=== PATIENT | male | born 1945 | race Caucasian/White ===

== ENCOUNTER 2018-03-02 11:56 | Emergency (ER) | payer MEDICARE ==
[2018-03-02] MEDS ORDERED: DEXAMETHASONE 10 MG/ML VIAL ONE (13:07)
[2018-03-02] MEDS ORDERED: NA CHLORIDE 0.9% 1,000 ML ONE (13:07)
[2018-03-02] MEDS ORDERED: ONDANSETRON 4 MG/2 ML VIAL ONE (13:07)
[2018-03-02] MEDS ORDERED: ACETAMINOPHEN 500 MG TAB ONE (13:07)
[2018-03-02 13:24] LABS: Absolute Lymphocytes (CBC) 1.2 K/uL (0.7-4.9); Absolute Monocytes 0.5 K/uL (0.1-1.3); Basophils % 0.7 % (0-1.3); Eosinophils % 2.1 % (0-4.4); Hematocrit 40.7 % (39.6-49.0); Lymphocytes % 20.8 % (15.3-44.8); MCV 94.5 fL (80-100); Monocytes % 8.4 % (3.3-12.3); RBC Red Blood Cell Count 4.31 M/uL (4.33-5.43)
[2018-03-02 13:25] LABS: Protime INR 1.09
--- NOTE | 2018-03-02 13:31 | RAD REPORT ---
EXAM DESCRIPTION: CT - Head Brain Wo Cont - 03/02/2018 1:17 pm CLINICAL HISTORY: Left-sided headache, weakness, dizziness COMPARISON: None. TECHNIQUE: Axial 5 mm thick images of the head were obtained without IV contrast. All CT scans are performed using dose optimization technique as appropriate and may include automated exposure control or mA/KV adjustment according to patient size. FINDINGS: No intracranial hemorrhage is present. Patient has mild atrophy and mild chronic ischemic change throughout the cerebral hemispheric white matter. No acute brainstem abnormality. There is a 4 centimeter area of diminished attenuation involving the posterior and inferior aspect of the left ce rebellum. This has the appearance of acute to subacute nonhemorrhagic infarction. Followup MR imaging could be performed to confirm age of this infarction. An neoplastic process is not entirely excluded but considered much less in likelihood. No acute cortical based infarction in the cerebral hemispher es. No abnormal extra-axial fluid collections. Ventricles are normal. Mastoid air cells and visualized portions of the paranasal sinuses are clear. No acute bony findings. Findings telephoned to the referring physician 1327 hours. IMPRESSION: Large left cerebellum nonhemorrhagic acute or possibly subacute infarction. Followup MR imaging could be obtained to confirm age. Neoplastic etiology for the left cerebellum is unlikely. Cerebral hemispheres show minimal atrophy an d chronic ischemic change.
[2018-03-02 13:34] LABS: Potassium 3.1 mEq/L (3.6-5.0)
[2018-03-02] MEDS ORDERED: ASPIRIN 81 MG CHEWABLE TABLET ONE (13:34)
[2018-03-02 13:40] LABS: Albumin 4.2 g/dL (3.2-5.5); Bilirubin Direct 0.3 mg/dL (0-0.2); Magnesium 1.8 mg/dL (1.8-2.5); Protein, Total 6.8 g/dL (6.0-8.3)
[2018-03-02] MEDS ORDERED: POTASSIUM CL SA 10 MEQ TAB PO ONE (14:13)
--- NOTE | 2018-03-02 14:33 | RAD REPORT ---
EXAM DESCRIPTION: RAD - Chest Single View - 03/02/2018 2:03 pm CLINICAL HISTORY: Dizziness, headache, hypertension, diaphoretic COMPARISON: None. TECHNIQUE: AP portable chest image was obtained 1357 hours . FINDINGS: No peripheral mass or consolidation. Small granulomas noted. Heart size is upper normal to slightly enlarged. Vasculature is not outside of normal range. Trachea is midline. No measurable ple ural effusion and no pneumothorax. Bony degenerative change without acute finding seen. No acute aort ic findings suspected. IMPRESSION: Borderline mild cardiomegaly with no acute failure or volume overload. No acute lung parenchymal finding.
--- NOTE | 2018-03-02 14:41 | ER ---
Nurse's Notes [facility] Name: Manjeet Zhu Age: 72 yrs Sex: Male : 1945 Arrival Date: 03/02/2018 Time: 11:59 Bed 23 Private MD: Otto Bradley Diagnosis: Acute Left Cerebellar Stroke Presentation: 03/02 12:12 Presenting complaint: Patient states: yesterday, i was sitting on my computer and i hj suddenly get dizzy; i was sweating, denies fever; now i have a headache on my L side of my head; BP checked 116/79 at home; reports occiptal headache that started today;. Transition of care: patient was not received from another setting of care. Onset of symptoms was March 02, 2018. Initial Sepsis Screen: Does the patient meet any 2 criteria? No. Patient's initial sepsis screen is negative. Does the patient have a suspected source of infection? No. Patient's initial sepsis screen is negative. Care prior to arrival: None. 12:12 Method Of Arrival: Ambulatory 12:12 Method Of Arrival: Ambulatory 12:12 Method Of Arrival: Ambulatory 12:12 Acuity: KAVITA 3 hj 12:50 No acute neurological deficit is noted. tw2 14:05 Pre-hospital glucose is not applicable to this patient. tw2 Triage Assessment: 12:17 Headache History: Denies prior headaches. General: Appears in no apparent distress. hj uncomfortable, Behavior is calm, cooperative, appropriate for age. Pain: Complains of pain in head Pain currently is 6 out of 10 on a pain scale. Pain began Also complains of nausea. Neuro: Level of Consciousness is awake, alert, obeys commands, Oriented to person, place, time, situation, Appropriate for age. 14:26 The onset of the patients symptoms was March 01, 2018 at 13:00. tw2 Stroke Activation: Symptom onset > 6 hours Physician: Stroke Attending; Name: ; Notified At: ; Arrived At: Physician: Chief Stroke Resident; Name: ; Notified At: ; Arrived At: Physician: Stroke Resident; Name: ; Notified At: ; Arrived At: Physician: ED Attending; Name: ; Notified At: ; Arrived At: Physician: ED Resident; Name: ; Notified At: ; Arrived At: Historical: - Allergies: 12:17 No Known Allergies; hj - Home Meds: 12:17 atorvastatin 10 mg oral tab 1 tab once daily [Active]; finasteride 5 mg oral tab 1 tab hj once daily [Active]; lisinopril-hydrochlorothiazide 20-12.5 mg oral tab 1 tab once daily [Active]; zolpidem 12.5 mg Oral TbMP 1 tab once daily [Active]; amlodipine 5 mg tab 1 tab once daily [Active]; - PMHx: 12:17 Hypertension; hj - PSHx: 12:17 elbow; hj - Immunization history:: Adult Immunizations up to date. - Social history:: Smoking status: Patient/guardian denies using tobacco, Patient uses alcohol, on a daily basis. - Family history:: not pertinent. - Hospitalizations: : No recent hospitalization is reported. Screenin:56 Abuse screen: Denies threats or abuse. Nutritional screening: No deficits noted. tw2 Tuberculosis screening: No symptoms or risk factors identified. Fall Risk None identified. Assessment: 12:50 General: Appears in no apparent distress. well groomed, Behavior is calm, cooperative, tw2 appropriate for age. Pain: Complains of pain in "more in the back of my neck area". Neuro: Level of Consciousness is awake, alert, obeys commands, Oriented to person, place, time, situation, Reports headache. Cardiovascular: Denies chest pain, shortness of breath, Heart tones S1 S2 Capillary refill < 3 seconds Patient's skin is warm and dry. Respiratory: Airway is patent Respiratory effort is even, unlabored, Respiratory pattern is regular, symmetrical, Breath sounds are clear bilaterally. GI: No signs and/or symptoms were reported involving the gastrointestinal system. Abdomen is flat, Bowel sounds present X 4 quads. : No signs and/or symptoms were reported regarding the genitourinary system. EENT: No signs and/or symptoms were reported regarding the EENT system. Derm: No signs and/or symptoms reported regarding the dermatologic system. Musculoskeletal: Range of motion: intact in all extremities. 12:50 Patient has been NPO before screening. The patient is alert, and able to follow tw2 commands. The patient does not exhibit slurred or garbled speech. The patient is not exhibiting difficulty speaking. The patient is exhibiting difficulty understanding words. The patient is able to swallow own secretions with no drooling or need for suction. Patient tolerated one teaspoon of water. No drooling, immediate coughing, gurgling, or clearing of the throat was noted. The patient tolerated 90mL of water. No drooling, immediate coughing, gurgling, or clearing of the throat was noted. The patient passed the bedside swallow screening. Oral medications may be given as ordered. Contact Physician for further diet orders. Provider notified of bedside swallow screening results: Keyshawn Benavides MD. T-PA (Activase) Screening: Contraindications: Patient reports onset of signs and symptoms of stroke greater than 6 hours ago: Yes. 12:54 Reassessment: provider at bedside at this time. tw2 13:41 Reassessment: Patient appears in no apparent distress at this time. Patient and/or tw2 family updated on plan of care and expected duration. Pain level reassessed. Patient is alert, oriented x 3, equal unlabored respirations, skin warm/dry/pink. Patient states feeling better. 14:48 Reassessment: Patient appears in no apparent distress at this time. Patient and/or tw2 family updated on plan of care and expected duration. Pain level reassessed. Patient is alert, oriented x 3, equal unlabored respirations, skin warm/dry/pink. Vital Signs: 12:17 BP 131 / 90; Pulse 85; Resp 18; Temp 98.2(TE); Pulse Ox 98% on R/A; Weight 89.36 kg; hj Height 6 ft. 0 in. (182.88 cm); Pain 6/10; 12:46 BP 138 / 95; Pulse 59; Resp 17; Pulse Ox 98% on R/A; tw2 13:41 BP 144 / 90; Pulse 52; Resp 12; Pulse Ox 100% on R/A; tw2 14:24 BP 146 / 83; Pulse 49; Resp 18; Pulse Ox 100% on R/A; tw2 12:17 Body Mass Index 26.72 (89.36 kg, 182.88 cm) NIH Stroke Scale Scores: 12:50 NIHSS Score: 0 tw2 ED Course: 11:59 Patient arrived in ED. mr 12:00 Otto Bradley DO is Private Physician. mr 12:14 Triage completed. hj 12:17 Arm band placed on left wrist. hj 12:45 Keyshawn Benavides MD is Attending Physician. wa 12:46 Jasmin Real, RN is Primary Nurse. tw2 12:46 Bed in low position. Call light in reach. monitoring analyst on. Pulse ox on. NIBP on. tw2 12:56 No provider procedures requiring assistance completed. tw2 13:17 CT Head Brain wo Cont In Process Unspecified. EDMS 13:59 X-ray completed. Portable x-ray completed in exam room. Patient tolerated procedure sw well. 14:00 XRAY Chest (1 view) In Process Unspecified. EDMS 14:06 EKG done, by skin care technician. reviewed by Keyshawn Benavides MD. dt2 14:40 Miguel Marte MD is Referral Physician. wa 14:48 IV discontinued, intact, bleeding controlled, No redness/swelling at site. Pressure tw2 dressing applied. Administered Medications: 13:10 Drug: Decadron - Dexamethasone 10 mg Route: IVP; Site: right antecubital; tw2 13:51 Follow up: Response: No adverse reaction; Pain is decreased tw2 13:12 Drug: NS 0.9% 1000 ml Route: IV; Rate: 1 bolus; Site: right antecubital; tw2 14:16 Follow up: Response: No adverse reaction; IV Status: Completed infusion; IV Intake: tw2 1000ml 13:12 Drug: Zofran 4 mg Route: IVP; Site: right antecubital; tw2 13:51 Follow up: Response: No adverse reaction tw2 13:12 Drug: Tylenol 1000 mg Route: PO; tw2 13:51 Follow up: Response: No adverse reaction; Pain is decreased tw2 13:36 Drug: Aspirin Chewable Tablet 324 mg Route: PO; tw2 13:51 Follow up: Response: No adverse reaction tw2 14:17 Drug: Potassium Chloride 40 mEq Route: PO; tw2 14:24 Follow up: Response: No adverse reaction tw2 Point of Care Testing: Blood Glucose: 14:10 Blood Glucose: 93 mg/dL; tw2 14:10 per Tal Walters tw2 Ranges: Intake: 14:16 IV: 1000ml; Total: 1000ml. tw2 Outcome: 14:41 Discharge ordered by . wa 14:48 AMA AMA form signed tw2 14:48 Condition: stable 14:48 Instructed on follow up and referral plans. 14:49 Patient left the ED. tw2 NIH Stroke Scale - NIH Stroke Score Date: 03/02/2018 Time: 12:50 Total Score = 0 1a. Level of Consciousness (LOC) - 0(Alert) 1b. Level of Consciousness (LOC) (Year \\T\\ Age) - 0(Both) 1c. LOC Commands (Open \\T\\ Closes Eyes/Injection Molder) - 0(Both) 2. Best Gaze (Lateral Gaze Paresis) - 0(Normal) 3. Visual Field Loss - 0(No visual loss) 4. Facial Palsy - 0(Normal) 5a. Left Arm: Motor (10-second hold) - 0(No drift) 5b. Right Arm: Motor (10-second hold) - 0(No drift) 6a. Left Leg: Motor (5-second hold - always test supine) - 0(No drift) 6b. Right Leg: Motor (5-second hold - always test supine) - 0(No drift) 7. Limb Ataxia (finger/nose \\T\\ heel/amaya - test with eyes open) - 0(Absent) 8. Sensory Loss (pinprick arms/legs/face) - 0(Normal) 9. Best Language: Aphasia (description/naming/reading) - 0(No aphasia) 10. Dysarthria (speech clarity - read or repeat words) - 0(Normal) 11. Extinction and Inattention (visual/tactile/auditory/spatial/personal) - 0(No abnormality) Initials: tw2 Signatures: Dispatcher [employer] EDHI Lazaro Nathalia Gan Bao Posadas RN RN Jasmin Real RN RN tw2 Keyshawn Benavides MD MD wa Teague, Danielle dt2 Corrections: (The following items were deleted from the chart) 12:20 12:17 Pulse 85bpm; Resp 18bpm; Pulse Ox 98% RA; Temp 98.2F Temporal; 89.36 kg; hj Height 6 ft. 0 in.; BMI: 26.7; Pain 6/10; hj
--- NOTE | 2018-03-02 14:42 | EDPHYS ---
Physician Documentation [facility] Name: Manjeet Zhu Age: 72 yrs Sex: Male : 1945 Arrival Date: 03/02/2018 Time: 11:59 Bed 23 Private MD: Otto Bradley ED Physician Keyshawn Benavides HPI: 03/02 14:23 This 72 yrs old Male presents to ER via Ambulatory with complaints of High wa Blood Pressure, Headache, Dizziness. 14:23 This 72 yrs old Male presents to ER via Ambulatory with complaints of wa Headache, Dizziness. 14:23 Onset: The symptoms/episode began/occurred yesterday, states sitting at his computer wa yesterday and suddenly became dizzy and sweaty. since then has had a posterior GONSALVES on the left side. states checked his blood pressure but was normal. denies h/o same in the past. denies nausea, vomiting or fever. Modifying factors: The symptoms are aggravated by nothing. , The symptoms are alleviated by nothing. Associated signs and symptoms: Pertinent positives: dizziness, headache, Pertinent negatives: chest pain, lightheadedness, visual changes, vomiting, weakness. Severity of symptoms: in the emergency department the blood pressure is wnl. The patient has not experienced similar symptoms in the past. The patient has not recently seen a physician. Historical: - Allergies: 12:17 No Known Allergies; hj - Home Meds: 12:17 atorvastatin 10 mg oral tab 1 tab once daily [Active]; finasteride 5 mg oral tab 1 tab hj once daily [Active]; lisinopril-hydrochlorothiazide 20-12.5 mg oral tab 1 tab once daily [Active]; zolpidem 12.5 mg Oral TbMP 1 tab once daily [Active]; amlodipine 5 mg tab 1 tab once daily [Active]; - PMHx: 12:17 Hypertension; hj - PSHx: 12:17 elbow; hj - Immunization history:: Adult Immunizations up to date. - Social history:: Smoking status: Patient/guardian denies using tobacco, Patient uses alcohol, on a daily basis. - Family history:: not pertinent. - Hospitalizations: : No recent hospitalization is reported. ROS: 14:31 Constitutional: Negative for fever, chills, and weight loss, Eyes: Negative for injury, wa pain, redness, and discharge, ENT: Negative for injury, pain, and discharge, Neck: Negative for injury, pain, and swelling, Cardiovascular: Negative for chest pain, palpitations, and edema, Respiratory: Negative for shortness of breath, cough, wheezing, and pleuritic chest pain, Abdomen/GI: Negative for abdominal pain, nausea, vomiting, diarrhea, and constipation, Back: Negative for injury and pain, : Negative for injury, bleeding, discharge, and swelling, MS/Extremity: Negative for injury and deformity, Skin: Negative for injury, rash, and discoloration, Psych: Negative for depression, anxiety, suicide ideation, homicidal ideation, and hallucinations. 14:31 Neuro: Positive for dizziness, headache, Negative for altered mental status, gait disturbance. 14:31 All other systems are negative. Exam: 14:33 Constitutional: This is a well developed, well nourished patient who is awake, alert, wa and in no acute distress. Head/Face: Normocephalic, atraumatic. Eyes: Pupils equal round and reactive to light, extra-ocular motions intact. Lids and lashes normal. Conjunctiva and sclera are non-icteric and not injected. Cornea within normal limits. Periorbital areas with no swelling, redness, or edema. ENT: Nares patent. No nasal discharge, no septal abnormalities noted. Tympanic membranes are normal and external auditory canals are clear. Oropharynx with no redness, swelling, or masses, exudates, or evidence of obstruction, uvula midline. Mucous membranes moist. Neck: Trachea midline, no thyromegaly or masses palpated, and no cervical lymphadenopathy. Supple, full range of motion without nuchal rigidity, or vertebral point tenderness. No Meningismus. Chest/axilla: Normal chest wall appearance and motion. Nontender with no deformity. No lesions are appreciated. Cardiovascular: Regular rate and rhythm with a normal S1 and S2. No gallops, murmurs, or rubs. Normal PMI, no JVD. No pulse deficits. Respiratory: Lungs have equal breath sounds bilaterally, clear to auscultation and percussion. No rales, rhonchi or wheezes noted. No increased work of breathing, no retractions or nasal flaring. Abdomen/GI: Soft, non-tender, with normal bowel sounds. No distension or tympany. No guarding or rebound. No evidence of tenderness throughout. Back: No spinal tenderness. No costovertebral tenderness. Full range of motion. Skin: Warm, dry with normal turgor. Normal color with no rashes, no lesions, and no evidence of cellulitis. MS/ Extremity: Pulses equal, no cyanosis. Neurovascular intact. Full, normal range of motion. Psych: Awake, alert, with orientation to person, place and time. Behavior, mood, and affect are within normal limits. 14:33 Neuro: Orientation: is normal, Mentation: is normal, Cranial nerves: CN II- XII are normal as tested, Cerebellar function: normal finger to nose testing, heel to amaya testing is normal, able to perform alternating rapid hand movements. Vital Signs: 12:17 BP 131 / 90; Pulse 85; Resp 18; Temp 98.2(TE); Pulse Ox 98% on R/A; Weight 89.36 kg; Height 6 ft. 0 in. (182.88 cm); Pain 6/10; 12:46 BP 138 / 95; Pulse 59; Resp 17; Pulse Ox 98% on R/A; tw2 13:41 BP 144 / 90; Pulse 52; Resp 12; Pulse Ox 100% on R/A; tw2 14:24 BP 146 / 83; Pulse 49; Resp 18; Pulse Ox 100% on R/A; tw2 12:17 Body Mass Index 26.72 (89.36 kg, 182.88 cm) NIH Stroke Scale Scores: 12:50 NIHSS Score: 0 tw2 MDM: 12:45 Patient medically screened. vt 14:38 Differential diagnosis: CVA, intracerebral hemorrhage. Data reviewed: vital signs, vt nurses notes, lab test result(s), EKG, radiologic studies. Test interpretation: by ED physician or midlevel provider: HR 53. sinus grace. non-specific STT changes. Physician consultation: Miguel Marte MD accepted admit. will see pt in [facility] and get MRI. replaced serum potassium. ASA given. 14:44 Response to treatment: the patient's symptoms have markedly improved after treatment. vt 03/02 13:00 Order name: Basic Metabolic Panel; Complete Time: 14: vt 03/02 13:00 Order name: BNP; Complete Time: 14: vt 03/02 13:00 Order name: CBC with Diff; Complete Time: 14: vt 03/02 13:00 Order name: CPK; Complete Time: 14:09 vt 03/02 13:00 Order name: LFT's; Complete Time: 14:09 vt 03/02 13:00 Order name: Magnesium; Complete Time: 14:09 vt 03/02 13:00 Order name: PT-INR; Complete Time: 14:09 vt 03/02 13:00 Order name: Troponin (emerg Dept Use Only); Complete Time: 14:09 vt 03/02 13:00 Order name: XRAY Chest (1 view) vt 03/02 13:02 Order name: CT Head Brain wo Cont; Complete Time: 13:47 vt 03/02 14:12 Order name: Glucose, Ancillary Testing EDMS 03/02 14:30 Order name: Urine Dipstick--Ancillary (enter results) 03/02 13:00 Order name: EKG; Complete Time: 13:01 vt 03/02 13:00 Order name: Cardiac monitoring; Complete Time: 13:05 vt 03/02 13:00 Order name: EKG - Nurse/Tech; Complete Time: 13:51 vt 03/02 13:00 Order name: IV Saline Lock; Complete Time: 13:05 vt 03/02 13:00 Order name: Labs collected and sent; Complete Time: 13:05 vt 03/02 13:00 Order name: O2 Per Protocol; Complete Time: 13:05 vt 03/02 13:00 Order name: O2 Sat Monitoring; Complete Time: 13:05 vt 03/02 13:00 Order name: Urine Dipstick-Ancillary (obtain specimen); Complete Time: 14:24 vt Administered Medications: 13:10 Drug: Decadron - Dexamethasone 10 mg Route: IVP; Site: right antecubital; tw2 13:51 Follow up: Response: No adverse reaction; Pain is decreased tw2 13:12 Drug: NS 0.9% 1000 ml Route: IV; Rate: 1 bolus; Site: right antecubital; tw2 14:16 Follow up: Response: No adverse reaction; IV Status: Completed infusion; IV Intake: tw2 1000ml 13:12 Drug: Zofran 4 mg Route: IVP; Site: right antecubital; tw2 13:51 Follow up: Response: No adverse reaction tw2 13:12 Drug: Tylenol 1000 mg Route: PO; tw2 13:51 Follow up: Response: No adverse reaction; Pain is decreased tw2 13:36 Drug: Aspirin Chewable Tablet 324 mg Route: PO; tw2 13:51 Follow up: Response: No adverse reaction tw2 14:17 Drug: Potassium Chloride 40 mEq Route: PO; tw2 14:24 Follow up: Response: No adverse reaction tw2 Point of Care Testing: Blood Glucose: 14:10 Blood Glucose: 93 mg/dL; tw2 14:10 per Tal Walters tw2 Ranges: Critical Glucose Levels:Adult <50 mg/dl or >400 mg/dl <40 mg/dl or >180 mg/dl Disposition: 03/02/18 14:41 Discharged to Home. Impression: Acute Left Cerebellar Stroke. - Condition is Stable. - Discharge Instructions: Stroke Prevention, [id number], Ischemic Stroke Treated Without Warfarin. - Medication Reconciliation Form, Thank You Letter, Antibiotic Education, Prescription Opioid Use form. - Follow up: Miguel Marte MD; When: Tomorrow; Reason: Continuance of care. - Problem is new. - Symptoms have improved. - Notes: you have decided to leave against medical advise. please take a baby aspirin daily. see the neurologist for MRI as soon as possible. quir drinking alcohol. return here immediately if you change your mind or your symptoms worsen NIH Stroke Scale - NIH Stroke Score Date: 03/02/2018 Time: 12:50 Total Score = 0 1a. Level of Consciousness (LOC) - 0(Alert) 1b. Level of Consciousness (LOC) (Year \T\ Age) - 0(Both) 1c. LOC Commands (Open \T\ Closes Eyes/Retail Property Manager) - 0(Both) 2. Best Gaze (Lateral Gaze Paresis) - 0(Normal) 3. Visual Field Loss - 0(No visual loss) 4. Facial Palsy - 0(Normal) 5a. Left Arm: Motor (10-second hold) - 0(No drift) 5b. Right Arm: Motor (10-second hold) - 0(No drift) 6a. Left Leg: Motor (5-second hold - always test supine) - 0(No drift) 6b. Right Leg: Motor (5-second hold - always test supine) - 0(No drift) 7. Limb Ataxia (finger/nose \T\ heel/amaya - test with eyes open) - 0(Absent) 8. Sensory Loss (pinprick arms/legs/face) - 0(Normal) 9. Best Language: Aphasia (description/naming/reading) - 0(No aphasia) 10. Dysarthria (speech clarity - read or repeat words) - 0(Normal) 11. Extinction and Inattention (visual/tactile/auditory/spatial/personal) - 0(No abnormality) Initials: tw2 Signatures: Dispatcher [employer] EDMS Bao Ryder RN RN Jasmin Real RN RN tw2 Keyshawn Benavides MD MD wa Corrections: (The following items were deleted from the chart) 14:49 14:41 03/02/2018 14:41 Discharged to Home. Impression: Acute Left Cerebellar tw2 Stroke. Condition is Stable. Forms are Medication Reconciliation Form, Thank You Letter, Antibiotic Education, Prescription Opioid Use. Follow up: Miguel Marte; When: Tomorrow; Reason: Continuance of care. Problem is new. Symptoms have improved. wa
[2018-03-02 15:05] LABS: Urine Blood TRACE (NEG); Urine Glucose NEGATIVE (NEG); Urine Protein NEGATIVE (NEG); Urine Specific Gravity 1.015 (1.005-1.030)
--- NOTE | 2018-03-02 16:19 | EKG ---
Test Date: 2018-03-02 Test Time: 13:53:46 Pack Operator: TIP MEASUREMENT RESULTS: Intervals: Rate: 51 WV: 192 QRSD: 110 QT: 474 QTc: 436 [place]: P: -1 WV: 192 QRS: -11 T: 190 INTERPRETIVE STATEMENTS: Sinus bradycardia with premature supraventricular complexes Nonspecific ST and T wave abnormality Abnormal ECG No previous ECG available for comparison Electronically Signed On 03-02-18 16:18:47 CDT by Abel Chen
== END 2018-03-02 14:49 | disposition home or self-care (01) ==
LOC: ER 11:56
DX: I63.8 Other cerebral infarction (principal); I10 Essential (primary) hypertension; R29.700 NIHSS score 0
CPT/HCPCS: 36415; 70450; 71045; 80048; 80076; 81003; 82550; 82962; 83735; 83880; 84484; 85025; 85610; 93005; 96361; 96374; 96375; 99284; J1100; J2405; J7030

== ENCOUNTER 2021-03-23 09:34 | Day surgery (SDC) | payer MEDICARE ==
--- NOTE | 2021-03-20 11:16 | RAD REPORT ---
EXAM DESCRIPTION: RAD - Chest Pa And Lat (2 Views) - 03/20/2021 11:08 am CLINICAL HISTORY: preop Chest pain. COMPARISON: Chest Single View dated 03/02/2018 FINDINGS: Small bilateral pleural effusions are seen, slightly greater on the right. The lungs are m ildly hyperexpanded. The heart is mildly enlarged in size.
[2021-03-20 11:27] LABS: Protime INR 2.01
[2021-03-20 11:32] LABS: Potassium 3.4 mmol/L (3.5-5.1)
[2021-03-20 11:40] LABS: Absolute Lymphocytes (CBC) 1.4 K/uL (0.7-4.9); Basophils % 0.7 % (0-1.3); Hematocrit 43.1 % (39.6-49.0); Lymphocytes % 31.7 % (15.3-44.8); MPV 8.3 fL (7.6-11.3); RBC Red Blood Cell Count 4.52 M/uL (4.33-5.43)
[~2021-03-23 09:34] MED LIST: HEPA 1000U/500MLS 1,000 UNIT/500 ML BAG IV ONE
[2021-03-23] MEDS ORDERED: NA CHLORIDE 0.9% 500 ML ONE (09:57)
[2021-03-23 10:23] VITALS: TEMP 96.5
[2021-03-23] MEDS ORDERED: FENTANYL CITR 100 MCG/2 ML ONE (10:32)
[2021-03-23] MEDS ORDERED: MIDAZOLAM HCL 2 MG/2 ML INJ ONE (10:32)
[2021-03-23] MEDS ORDERED: LIDOCAINE 1% 20 ML MDV ONE (10:33)
[2021-03-23] MEDS ORDERED: ACETYLCYST 20% 4 ML VIAL IH ONE (10:33)
[2021-03-23] MEDS ORDERED: NA CHLORIDE 0.9% 0 ML ONE (10:33)
[2021-03-23] MEDS ORDERED: ATROPINE SULF 1 MG/10 ML SYR IV ONE (10:33)
--- NOTE | 2021-03-23 10:56 | OP ---
Surgeon: Jude Vogt MD Corporate Risk Analyst: Doron Byrd. Procedures: Admitted to my service on 03/23/2021 as an outpatient for left heart catheterization, se lective coronary arteriogram, left ventriculogram. Indication: Coronary artery disease, unstable angina, congestive heart failure. Procedure In Detail: The patient was brought to the laboratory courier, prepped and draped in routine sterile fashion. Given Versed for sedation. A 6-Liberian sheath introduced in the right common femoral artery successfully using the Seldinger technique. JL4 and JR4 catheter were used to cannulate the left ma in and right main respectively. The RCA was large, dominant and free of disease. The circumflex was normal. The left main was normal. LAD was normal. There was a 60% ostial ramus stenosis. A [place] catheter was used to cannulate the LV. Angiography showed ejection fraction of 25% with severe gl obal hypokinesis. Left ventricular end-diastolic pressure was 18 mmHg. There were no complications. Blood loss was 5 mL. Postoperative Diagnoses: Moderate coronary artery disease, severe congestive heart failure with elev ated left ventricular end-diastolic pressure. We will continue medical therapy for now. Anesthesia: Total conscious sedation 45 minutes. Plan: Plan is for the patient to go home 2 hours after bedrest. Angiography in the groin was normal . Angio-Seal was used to close the case. DIONY/LYUDMILA Voice ID: [id number] Report ID: [id number]
[2021-03-23 12:19] VITALS: BP 116/72; O2SAT 95
== END 2021-03-23 12:46 | disposition home or self-care (01) ==
LOC: CCL 09:34
DX: I25.110 Atherosclerotic heart disease of native coronary artery with unstable angina pectoris (principal); I13.0 Hypertensive heart and chronic kidney disease with heart failure and stage 1 through stage 4 chronic kidney disease, or unspecified chronic kidney disease; I50.22 Chronic systolic (congestive) heart failure; N18.9 Chronic kidney disease, unspecified; I48.0 Paroxysmal atrial fibrillation; I65.23 Occlusion and stenosis of bilateral carotid arteries; E78.2 Mixed hyperlipidemia; I26.99 Other pulmonary embolism without acute cor pulmonale; G47.33 Obstructive sleep apnea (adult) (pediatric); N40.0 Benign prostatic hyperplasia without lower urinary tract symptoms; Z86.73 Personal history of transient ischemic attack (TIA), and cerebral infarction without residual deficits; Z20.822 Contact with and (suspected) exposure to COVID-19
CPT/HCPCS: 85025; 80048; 36415; 85610; 85730; 71046; 93458; U0003; C1893; C1760; J2250; J3010; J7040; J1644; J0583

== ENCOUNTER 2021-04-11 08:34 | Emergency (ER) | payer MEDICARE ==
--- NOTE | 2021-04-11 10:16 | ER ---
Nurse's Notes [facility] Name: Manjeet Zhu Age: 75 yrs Sex: Male : 1945 Arrival Date: 04/11/2021 Time: 08:35 Bed 17 Private MD: Vernon Bajwa Diagnosis: Epistaxis-resolved Presentation: 04/11 08:47 Chief complaint: Patient states: R nare bleeding since 6 am after blowing his nose. ll1 Nasal packing in R nare (self placed). Coronavirus screen: Client denies travel out of the [place] in the last 14 days. At this time, the client does not indicate any symptoms associated with coronavirus-19. Ebola Screen: Patient denies travel to an Ebola-affected area in the 21 days before illness onset. Initial Sepsis Screen: Does the patient meet any 2 criteria? No. Patient's initial sepsis screen is negative. Does the patient have a suspected source of infection? Yes: Other: nasal bleeding. Risk Assessment: Do you want to hurt yourself or someone else? Patient reports no desire to harm self or others. Onset of symptoms was April 11, 2021. 08:47 Method Of Arrival: Ambulatory ll1 08:47 Acuity: KAVITA 3 ll1 Historical: - Allergies: 08:50 No Known Allergies; ll1 - PMHx: 08:50 Hypertension; High Cholesterol; Myocardial infarction; CVA; ll1 - PSHx: 08:50 elbow; heart cath; lung drained, collapsed lung; ll1 - Immunization history:: Client reports receiving the 2nd dose of the Covid vaccine, Flu vaccine is up to date. - Social history:: Smoking status: Patient/guardian denies using tobacco. Screenin:43 Abuse screen: Denies threats or abuse. Nutritional screening: No deficits noted. rb3 Tuberculosis screening: No symptoms or risk factors identified. Fall Risk None identified. Assessment: 09:43 General: Appears in no apparent distress. Behavior is calm, cooperative. Pain: Denies rb3 pain. Neuro: Level of Consciousness is awake, alert, obeys commands, Oriented to person, place, time, situation. Cardiovascular: Patient's skin is warm and dry. Respiratory: Airway is patent Respiratory effort is even, unlabored, Respiratory pattern is regular, symmetrical. GI: No signs and/or symptoms were reported involving the gastrointestinal system. : No signs and/or symptoms were reported regarding the genitourinary system. EENT: Reports nose bleed after blowing his nose. Bleeding controlled at this time. 10:19 Reassessment: Patient appears in no apparent distress at this time. No bleeding noted rb3 at this time. Cleaned outside of nares with normal saline and gauze. Vital Signs: 08:47 BP 114 / 83; Pulse 73; Resp 16; Temp 97.7; Pulse Ox 96% on R/A; Weight 81.65 kg; Height ll1 5 ft. 11 in. (180.34 cm); Pain 0/10; 08:47 Body Mass Index 25.10 (81.65 kg, 180.34 cm) ll1 ED Course: 08:35 Patient arrived in ED. am2 08:35 Vernon Bajwa DO is Private Physician. am2 08:48 Triage completed. ll1 08:50 Arm band placed on. ll1 09:39 Patient placed in an exam room, on a stretcher. ll1 09:40 Evelyn Malave FNP-C is [facility]. kb 09:40 Sumit Jiang MD is Attending Physician. kb 09:43 Patient has correct armband on for positive identification. Bed in low position. Call rb3 light in reach. Side rails up X 1. Pulse ox on. NIBP on. 09:50 Floridalma Santos, RN is Primary Nurse. rb3 10:26 No provider procedures requiring assistance completed. Patient did not have IV access rb3 during this emergency room visit. Administered Medications: No medications were administered Outcome: 10:16 Discharge ordered by . kb 10:26 Discharged to home ambulatory. rb3 10:26 Condition: stable 10:26 Discharge instructions given to patient, Instructed on discharge instructions, follow up and referral plans. Demonstrated understanding of instructions, follow-up care, Prescriptions given X none 10:28 Patient left the ED. rb3 Signatures: Evelyn Malave FNP-C FNP-Mallory Piper am2 Ronel Summers RN RN ll1 Floridalma Santos, BRO RN rb3 Corrections: (The following items were deleted from the chart) 08:51 08:47 Chief complaint: Patient states: R nare bleeding since 6 am after blowing his ll1 nose. ll1 09: 08:47 Acuity: KAVITA 4 ll1 ll1 09:25 08:47 Chief complaint: Patient states: R nare bleeding since 6 am after blowing his ll1 nose. ll1
--- NOTE | 2021-04-11 10:16 | EDPHYS ---
Physician Documentation [facility] Name: Manjeet Zhu Age: 75 yrs Sex: Male : 1945 Arrival Date: 04/11/2021 Time: 08:35 Bed 17 Private MD: Vernon Bajwa ED Physician Sumit Jiang HPI: 04/11 09:47 This 75 yrs old Male presents to ER via Ambulatory with complaints of Nose kb Bleed. 09:47 The patient presents with a nose bleed, that is apparently anterior, from the right kb nare, occurred after blowing nose, causative factors include: previous HX of nosebleeds, blood thinner. Onset: The symptoms/episode began/occurred this morning. Modifying factors: The symptoms are alleviated by pressure, the symptoms are aggravated by blowing nose. Associated signs and symptoms: The patient has no apparent associated signs or symptoms, Loss of consciousness: the patient experienced no loss of consciousness. Severity of symptoms: At their worst the symptoms were moderate in the emergency department the symptoms have resolved. The patient has experienced a previous episode. The patient has not recently seen a physician. Pt reports he used some nasal spray this morning then blew his nose which caused a nose bleed from right nare. Pt used toilet paper to plug nare and came in. States he had this happen once last year and his doctor cauterized it in the office. Came here to have this one cauterized. c/o that he cannot breathe through his nose and has to breathe through his mouth. Historical: - Allergies: 08:50 No Known Allergies; ll1 - PMHx: 08:50 Hypertension; High Cholesterol; Myocardial infarction; CVA; ll1 - PSHx: 08:50 elbow; heart cath; lung drained, collapsed lung; ll1 - Immunization history:: Client reports receiving the 2nd dose of the Covid vaccine, Flu vaccine is up to date. - Social history:: Smoking status: Patient/guardian denies using tobacco. ROS: 09:56 Constitutional: Negative for fever, chills, and weight loss, Respiratory: Negative for kb shortness of breath, cough, wheezing, and pleuritic chest pain. 09:56 ENT: Positive for nose bleed. 09:56 All other systems are negative. Exam: 09:56 Constitutional: This is a well developed, well nourished patient who is awake, alert, kb and in no acute distress. Cardiovascular: Regular rate and rhythm with a normal S1 and S2. No gallops, murmurs, or rubs. No pulse deficits. Respiratory: Respirations even and unlabored. No increased work of breathing, no retractions or nasal flaring. Skin: Warm, dry with normal turgor. Normal color. MS/ Extremity: Pulses equal, no cyanosis. Neurovascular intact. Full, normal range of motion. Neuro: Awake and alert, GCS 15, oriented to person, place, time, and situation. Moves all extremities. Normal gait. Psych: Awake, alert, with orientation to person, place and time. Behavior, mood, and affect are within normal limits. 09:56 ENT: Nose: clotted blood, in right nare, Examination of the other nostril shows no obvious abnormality. Vital Signs: 08:47 BP 114 / 83; Pulse 73; Resp 16; Temp 97.7; Pulse Ox 96% on R/A; Weight 81.65 kg; Height ll1 5 ft. 11 in. (180.34 cm); Pain 0/10; 08:47 Body Mass Index 25.10 (81.65 kg, 180.34 cm) ll1 MDM: 09:40 Patient medically screened. kb 09:55 Data reviewed: vital signs, nurses notes. Data interpreted: Pulse oximetry: on room air kb is 96 %. Interpretation: normal. Counseling: I had a detailed discussion with the patient and/or guardian regarding: the historical points, exam findings, and any diagnostic results supporting the discharge/admit diagnosis, the need for outpatient follow up, an ENT specialist, to return to the emergency department if symptoms worsen or persist or if there are any questions or concerns that arise at home. ED course: toilet tissue removed from right nare. No bleeding at this time. Large clot noted in upper right nare. Pt educated not to blow nose. . Administered Medications: No medications were administered Disposition: 17:32 Co-signature as Attending Physician, Sumit Jiang MD. rn Disposition: 04/11/21 10:16 Discharged to Home. Impression: Epistaxis - resolved. - Condition is Stable. - Discharge Instructions: Nosebleed, [id number]. - Medication Reconciliation Form, Thank You Letter, Antibiotic Education, Prescription Opioid Use form. - Follow up: Private Physician; When: 2 - 3 days; Reason: Recheck today's complaints, Continuance of care, Re-evaluation by your physician. Follow up: Emergency Department; When: As needed; Reason: Worsening of condition. Signatures: Evelyn Malave, MIRIAN-C JAVA PROGRAMMING PROFESSOR-Ckb Sumit Jiang MD MD rn Lewis, Lynsay, RN RN ll1 Floridalma Santos, RN RN rb3 Corrections: (The following items were deleted from the chart) 09:53 09:47 Pt reports he used some nasal spray this morning then blew his nose which caused kb a nose bleed from right nare. Pt used toilet paper to plug nare and came in. States he had this happen once last year and his doctor cauterized it in the office. Came here to have this one cauterized. . kb 10:28 10:16 04/11/2021 10:16 Discharged to Home. Impression: Epistaxis - resolved. Condition rb3 is Stable. Discharge Instructions: Nosebleed, [id number]. Forms are Medication Reconciliation Form, Thank You Letter, Antibiotic Education, Prescription Opioid Use. Follow up: Private Physician; When: 2 - 3 days; Reason: Recheck today's complaints, Continuance of care, Re-evaluation by your physician. Follow up: Emergency Department; When: As needed; Reason: Worsening of condition. kb
[2021-04-11 10:48] VITALS: BP 114/83; TEMP 97.7; O2SAT 96
== END 2021-04-11 10:28 | disposition home or self-care (01) ==
LOC: ER 08:34
DX: R04.0 Epistaxis (principal); I10 Essential (primary) hypertension; Z86.73 Personal history of transient ischemic attack (TIA), and cerebral infarction without residual deficits
CPT/HCPCS: 99283

== ENCOUNTER 2021-05-07 15:02 | Emergency (ER) | payer MEDICARE ==
--- OUTSIDE RECORDS SUMMARY | 2021-05-07 15:08 | XMS REPORT | Continuity of Care Document ---
:[address] [facility] t Address [address] [place] [address] Care Team Providers Name Role Phone Bradley Heidi DIAZ Primary Care Physician Zack Garza Attending Clinician MARYSOL Attending Clinician Unavailable Leander Attending Clinician Keyshawn Garza Attending Clinician Zack Garza Admitting Clinician Leander Admitting Clinician Problems Condition Condition Condition Status Onset Resolution Last Treating Co mments Source Name Details Category Date Date Treatment Clinician Date CHF, AFIB Diagnosis Active 2020-12-12 Memoria 12-12 16:42:00 l CHF, 00:00: [place] AFIB 00 Active 12/12/2020 [facility] CHF, AND Diagnosis Active 2020-12-12 M emoria AFIB 12-12 14:09:00 l CHF, AND 00:00: Leonardo n AFIB 00 Active 12/12/2020 [facility] ACUTE CHF Diagnosis Active 2020-12-22 Memoria 12-12 12:58:00 l ACUTE 00:00: [place] CHF 00 Active 12/12/2020 [facility] PULMNARY Diagnosis Active 2020-11-27 M emoria EMBOLI 11-17 22:01:00 l PULMNARY 00:00: Leonardo n EMBOLI 00 Active 11/17/2020 [facility] SOB, NO Diagnosis Active 2020-0 2020-11-17 Me moria APPETITE 1-18 15:35:00 l SOB, NO 00:00: [place] APPETITE 00 Active 11/17/2020 [facility] Dyslipidem Dyslipidem Problem Active [facility] nivers ia ia [facility]y [facility] [place] Physici ans 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 Physici vein vein ans History of History of Problem Active U nivers pulmonary pulmonary ity of embolus embolus [place] (PE) (PE) Physici ans [facility] Problem Active Uni vers (current) (current) ity of use of use of [place] anticoagul anticoagul Ph ysici ants ants ans History of History of Problem Active U nivers stroke stroke ity of [place] Physici ans History of History of Problem Resolve Univers hyperlipid hyperlipid d it y of emia emia [place] Physici ans History of History of Problem Resolve Univers hypertensi hypertensi d it y of on on [place] Physici ans 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 Myocardial Problem Resolve 2020-12-23 Memoria infarction d 22:21:36 l (disorder) Leonardo n Myocardial infarction (disorder) Resolved Problem 12/23/2020 [facility] Coronary Problem Active 2020-12-23 Mem oria arterioscl 22:21:36 l erosis Coronary Leonardo n (disorder) arterioscl erosis (disorder) Active Problem 12/23/[address] [facility] History of Problem Active 2020-12-23 M emoria - CVA 22:21:36 l (context-d History Her faust ependent of - CVA category) (context-d ependent category) Active Problem 12/23/[address] [facility] Hypertensi Problem Active 2020-12-23 M emoria ve 22:21:36 l disorder, [place] systemic Hypertensi arterial ve (disorder) disorder, systemic arterial (disorder) Active Problem 12/23/2020 [facility] Right Problem Active 2020-12-23 Memor ia carotid 22:21:36 l artery Right [place] stenosis carotid (disorder) artery stenosis (disorder) Active Problem 12/23/2020 [facility] Thrombotic Problem Active 2020-12-23 M emoria stroke 22:21:36 l (disorder) Leonardo n Thrombotic stroke (disorder) Active Problem 12/23/2020 [facility] OTHER Diagnosis Active 2020-11-27 Mem oria PULMONARY 22:01:00 l EMBOLISM OTHER [place] WITHOUT PULMONARY ACUTE C EMBOLISM WITHOUT ACUTE C Active [facility] HEART Diagnosis Active 2020-12-22 Mem oria FAILURE, 12:58:00 l UNSPECIFIE HEART Page nn D FAILURE, UNSPECIFIE D [facility] Diagnosis Active 2020-12-12 Memoria D ATRIAL 16:42:00 l FIBRILLATI Leonardo n ON UNSPECIFIE D ATRIAL FIBRILLATI ON Active [facility] SINGLE Diagnosis Active 2020-12-20 Mem oria LIVEBORN 10:16:00 l INFANT, SINGLE Barber DELIVERED LIVEBORN BY JOVANNI , DELIVERED BY JOVANNI Active [facility] Allergies, Adverse Reactions, Alerts Allergy Allergy Status Severity Reaction(s) Onset Inactive Treating Comm ents Source Name Type Date Date Clinician No Known No Known Active Memori a Medicati Medicati l on on Barber Allergie Allergie s s Family History Family Member Diagnosis Comments Start Date Stop Date Source Mother Family history of [facility] [place] cardiac pacemaker Physici ans Sister Family history of [facility] [place] malignant neoplasm Physic ians Social History Social Habit Start Date Stop Date Quantity Comments Source Tobacco use and 2017-12-07 2017-12-07 Never used [facility] ethodist exposure 00:00:00 00:00:00 Alcohol intake 2017-12-07 2017-12-07 Current drinker [place] [facility] 00:00:00 00:00:00 of alcohol (finding) Sex [birth year] [place] ethodist 00:00:00 00:00:00 Smoking Status Start Date Stop Date Source Social History 2020-12-12 23:57:56 2020-12-12 23:57:56 [facility] Medications Ordered Filled Start Stop Current Ordering Indication Dosage Frequency Signature Comments Components Source Medication Medication Date Date Medication? Clinician (SIG) Name Name metOLazone metOLazone Yes BENNET QD TAKE 1 Univers 2.5 MG Oral 2.5 MG Oral 2-26 MARYSLO TABLET ity of Tablet Tablet 00:00: M.D. ONCE [place] 00 DAILY. Physici ans Bumetanide Bumetanide Yes BENNET TAKE 1 Univers 1 MG Oral 1 MG Oral 2-23 MARYSOL TABLET BY ity of Tablet Tablet 00:00: M.D. 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, Height, 75.727, kg, 12/12/20 17:48:00 STREAMING MEDIA SPECIALIST, Weight rivaroxaban Yes 20 mg = 2 M emoria 10 mg oral 2-21 tab, PO, l tablet 16:30: QPM, For Deep Venous Thrombosis / Pulmonary Embolism, 0 Refill(s) bumetanide Yes 1 mg = 1 Mem oria 1 mg oral 2-21 tab, PO, l tablet 16:30: Daily, 0 Refill(s) Xarelto No Notes: Memoria 2-20 (Same as: l 17:30: Xarelto) Amiodarone No Notes: Memor ia 2-20 (Same as: l 15:00: Cordarone) Bumex No Notes: Memoria 2-19 (Same As: l 17:07: Bumex) Heparin - No 6,100 Memoria one time 2-18 unit, 6.1 l bolus for 20:33: mL, Route: He rmann DVT/PE 00 IVP, Drug form: INJ, ONCE, Dosing Weight 75.727, kg, Priority: STAT, Start date: 12/18/20 14:33:00 STREAMING MEDIA SPECIALIST, Stop date: 12/18/20 14:33:00 STREAMING MEDIA SPECIALIST, 0 Heparin 80 No Route: Memor ia unit/kg 2-18 IVP, PRN, l Bolus 20:33: 6,100 [place] (Heparin 00 unit, 6.1 Dosing mL, Drug Weight) form: INJ, PRN, Heparin Protocol, Start date: 12/18/20 14:33:00 STREAMING MEDIA SPECIALIST Stop date: 01/17/21 15:32:00 CDT, 30 day, 0 Heparin 40 No Route: Memor ia unit/kg 2-18 IVP, PRN, l Bolus 20:33: 3,000 [place] (Heparin 00 unit, 3 Dosing mL, Drug Weight) form: INJ, PRN, Heparin Protocol, Start date: 12/18/20 14:33:00 STREAMING MEDIA SPECIALIST Stop date: 01/17/21 15:32:00 CDT, 30 day, 0 heparin No Notes: Memoria additive 2-18 Total l 25,000 unit 20:33: Concentrat Barber [18 00 ion = 50 unit/kg/hr] unit/ ml + Premix Total Diluent volume = Sodium 500 ml Chloride Send Med 0.45% 500 Request 2 mL hours prior to next bag Ceftriaxone No Notes: Abisai obdulio 2-18 (Same As: l 20:00: Rocephin). Barber 00 Use with 100 mL NS and infuse over 30 min MEDICATION WASTE Product Size: 1000 mg Product Wasted: ___ mg albumin No Notes: Lot Abisai obdulio human 25% 2-17 #: l intravenous 22:27: [place] solution 00 ___ Mfg: (Same as: Plasbumin- 25) "blood product derivative " WASTE: F/P - Red; E -Red MEDICATION WASTE Product Size: 25 gm Product Wasted: ___ gm Bumex No Notes: Memoria 2-17 (Same As: l 19:00: Bumex) [place] 00 zolpidem No Notes: Memoria 2-16 (Same As: l 03:00: Ambien) [place] 00 Metoprolol No Notes: Memor ia Succinate 2-15 (Same as: l ER 50 mg 15:00: Toprol XL) Her faust oral 00 May split tablet, tab, but extended do not release crush. Magnesium No Notes: Memori a Sulfate 2-15 WASTE: F/P l 14:15: - Sink; E [place] 00 - Municipal Trash Bin Trazodone No Notes: Memori a Hydrochlori 2-15 (Same As: l de 50 MG 03:00: Desyrel) Page nn Oral Tablet 00 potassium No Notes: Memori a chloride 20 2-14 (Same as: l mEq oral 22:10: K-Dur 20) Herm elizabeth tablet, 00 "Do Not extended Crush" release Give with (KCL) food and full glass of water For patients unable to swallow tablet, dissolve in one half glass of water. Allow about 2 minutes for the tablets to disintegra te. Stir before giving to prepare slurry and administer . Please exclude Patient s with feeding tube less than 14 [place] (Dobhoff, J-tube etc) and pediatric and patients. Trazodone No Notes: Memori a Hydrochlori 2-14 (Same As: l de 50 MG 03:00: Desyrel) Page nn Oral Tablet 00 Amiodarone No Notes: Memor ia 2-13 (Same as: l 23:00: Cordarone) [place] 00 Heparin 80 No Route: Memor ia unit/kg 2-13 IVP, PRN, l Bolus 16:33: 6,100 [place] (Heparin 00 unit, 6.1 Dosing mL, Drug Weight) form: INJ, PRN, Heparin Protocol, Start date: 12/13/20 10:33:00 STREAMING MEDIA SPECIALIST Stop date: 01/12/21 11:32:00 CDT, 30 day, 0 Heparin 40 No Route: Memor ia unit/kg 2-13 IVP, PRN, l Bolus 16:33: 3,000 [place] (Heparin 00 unit, 3 Dosing mL, Drug Weight) form: INJ, PRN, Heparin Protocol, Start date: 12/13/20 10:33:00 STREAMING MEDIA SPECIALIST Stop date: 01/12/21 11:32:00 CDT, 30 day, 0 heparin No Notes: Memoria additive 2-13 Total l 25,000 unit 16:33: Concentrat [place] [18 00 ion = 50 unit/kg/hr] unit/ ml + Premix Total Diluent volume = Sodium 500 ml Chloride Send Med 0.45% 500 Request 2 mL hours prior to next bag Aspirin 81 No Notes: Memor ia MG Chewable 2-13 Take with l Tablet 15:00: food. [place] 00 Finasteride No Notes: Abisai obdulio 2-13 (Same as: l 15:00: Proscar) [place] 00 "Do Not Crush" Women of childbeari ng age should not touch or handle broken tablets Hazardous Drug Group 3:Reproduc tive risk Hazardous Drug -- Refer to safe handling procedure PPE Matrix Metoprolol No Notes: Memor ia Succinate 2-13 (Same as: l ER 50 mg 15:00: Toprol XL) Her faust oral 00 May split tablet, tab, but extended do not release crush. tamsulosin No Notes: Memor ia 2-13 (Same As: l 15:00: Flomax) [place] 00 "Do Not Crush" potassium No Notes: Memori a chloride 20 2-13 (Same as: l mEq oral 06:00: K-Dur 20) Herm elizabeth tablet, 00 "Do Not extended Crush" release Give with (KCL) food and full glass of water For patients unable to swallow tablet, dissolve in one half glass of water. Allow about 2 minutes for the tablets to disintegra te. Stir before giving to prepare slurry and administer . Please exclude Patient s with feeding tube less than 14 [place] (Dobhoff, J-tube etc) and pediatric and patients. Saline No Notes: Memoria Flush 0.9% 2-13 Same as: l 03:00: BD [place] 00 Posiflush Sterile atorvastati No Notes: Abisai obdulio n 2-13 (Same As: l 03:00: Lipitor) Potassium No Notes: Memori a Chloride 2-13 Infuse at l 01:00: a rate of 10 mEq/hr. (Same as: KCL) Amiodarone No Notes: Memor ia 2-12 (Same as: l 23:44: Cordarone) Amiodarone No Notes: Memor ia 2-12 (Same as: l 23:00: Cordarone) Xarelto No Notes: Memoria 2-12 (Same as: l 23:00: Xarelto) Furosemide No Notes: Memor ia 2-12 (Same as: l 22:53: Lasix) MEDICATION WASTE Product Size: 40 mg Product Wasted: ___ mg Ondansetron No Notes: Abisai obdulio 2-12 (Same as: l 22:53: Zofran) MEDICATION WASTE Product Size: 4 mg Product Wasted: ___ mg Saline No Notes: Memoria Flush 0.9% 2-12 Same as: l 22:53: BD Posiflush Sterile rivaroxaban Yes 15 mg = 1 M emoria 15 mg oral 1-24 tab, PO, l tablet 18:51: Q12H, For Leonardo n 00 Deep Venous Thrombosis / Pulmonary Embolism, # 36 tab, 0 Refill(s), Pharmacy: [facility], 182.88, cm, 11/17/20 14:04:00 STREAMING MEDIA SPECIALIST, Height, 74, kg, 11/17/20 14:04:00 STREAMING MEDIA SPECIALIST, Weight rivaroxaban Yes =15 Memori a 20 MG Oral 1-24 mL/min, l Tablet 18:51: 182.88Barber [Xarelto] 00 cm, 11/17/20 14:04:00 STREAMING MEDIA SPECIALIST, Height, 74, kg, 11/17/20 14:04:00 STREAMING MEDIA SPECIALIST, Weight AMIODarone Yes 200 mg = 1 M emoria 200 mg oral 1-24 tab, PO, l tablet 18:50: BID, # 60 Leonardo n 00 tab, 0 Refill(s), Pharmacy: [facility], 182.88, cm, 11/17/20 14:04:00 STREAMING MEDIA SPECIALIST, Height, 74, kg, 11/17/20 14:04:00 STREAMING MEDIA SPECIALIST, Weight Furosemide Yes 20 mg = 1 Me moria 20 MG Oral 1-24 tab, PO, l Tablet 18:50: Daily, # [place] 00 30 tab, 0 Refill(s), Pharmacy: [facility], 182.88, cm, 11/17/20 14:04:00 STREAMING MEDIA SPECIALIST, Height, 74, kg, 11/17/20 14:04:00 STREAMING MEDIA SPECIALIST, Weight lisinopril Yes 2.5 mg = 1 M emoria 2.5 mg oral 1-24 tab, PO, l tablet 18:50: Daily, # [place] 00 30 tab, 0 Refill(s), Pharmacy: [facility], 182.88, cm, 11/17/20 14:04:00 STREAMING MEDIA SPECIALIST, Height, 74, kg, 11/17/20 14:04:00 STREAMING MEDIA SPECIALIST, Weight Metoprolol Yes 50 mg = 1 Me moria Succinate 1-24 tab, PO, l ER 50 mg 18:50: Daily, # Page nn oral 00 30 tab, 0 tablet, Refill(s), extended Pharmacy: [facility], 182.88, cm, 11/17/20 14:04:00 STREAMING MEDIA SPECIALIST, Height, 74, kg, 11/17/20 14:04:00 STREAMING MEDIA SPECIALIST, Weight Furosemide No Notes: Memor ia 20 MG Oral 1-24 (Same as: l Tablet 15:00: Lasix) May cause GI upset. Give with food or milk. Lisinopril No Notes: Memor ia 1-23 (Same as: l 15:00: Prinivil) rivaroxaban No Notes: Abisai obdulio 1-23 (Same as: l 03:00: Xarelto) Administer with food Versed No Notes: Memoria 1-22 (Same as: l 18:44: Versed) MEDICATION WASTE Product Size: 2 mg Product Wasted: ___ mg Fentanyl No Notes: Memoria -22 (Same as: l 18:44: Sublimaze) Preservat erin free. Digoxin No Notes: Memoria 0.25 MG 11-21 Take on an l Oral Tablet 15:00: Empty Page nn Stomach (Same as: Lanoxin) Melatonin No Notes: Memori a 11-21 (Same as: l 01:33: Melatonin) Amiodarone No Notes: Memor ia 11-20 (Same as: l 23:00: Cordarone) Lactated No 500 mL, Memori a Ringers IV 11-20 Rate: 125 l 500 mL 16:49: ml/hr, Infuse over: 4 hr, Route: IV, Dosing Weight 74 kg, Total Volume: 500, Start date: 11/20/20 10:49:00 STREAMING MEDIA SPECIALIST, Duration: 1 doses or times, Stop date: 11/20/20 14:48:00 STREAMING MEDIA SPECIALIST, 1.94, m2, 0 Cathflo No Notes: do Memor ia Activase 2 11-20 not load l mg 07:48: in pyxis Barber injection 6 00 mg + Sodium Chloride 0.9% IV 94 mL Ativan No Notes: Memoria 1-20 (Same as: l 23:21: Ativan) normal No 250 mL, Memoria saline 0.9% 1-20 250 ml/hr, l (Bolus) IV 22:19: Infuse Page nn Over: 1 hr, Route: IV, 250, Drug form: INJ, ONCE, Priority: STAT, Dosing Weight 74 kg, Start date: 11/19/20 16:19:00 STREAMING MEDIA SPECIALIST, Stop date: 11/19/20 16:19:00 STREAMING MEDIA SPECIALIST, 0 Metoprolol No Notes: Memor ia Succinate 20 (Same as: l ER 50 mg 22:18: Toprol XL) Her faust oral 00 May split tablet, tab, but extended do not release crush. heparin No Notes: Memoria additive 1-20 Total l 25,000 unit 19:50: Concentrat Barber [250 00 ion = 50 unit/hr] + unit/ ml Premix Total Diluent volume = Sodium 500 ml Chloride Send Med 0.45% 500 Request 2 mL hours prior to next bag Sodium No 1,000 mL, Memori a Chloride 1-20 Rate: 35 l 0.9% IV 19:50: ml/hr, [place] 1,000 mL 00 Infuse over: 28.6 hr, Route: IV, Dosing Weight 74 kg, Total Volume: 1,000, Start date: 11/19/20 13:50:00 STREAMING MEDIA SPECIALIST, Duration: 2 day, Stop date: 11/21/20 13:49:00 STREAMING MEDIA SPECIALIST, 1.94, m2, 0 Cathflo No Notes: do Memor ia Activase 2 1-20 not load l mg 19:50: in pyxis [place] injection 6 00 mg + Sodium Chloride 0.9% IV 94 mL Metoprolol No Notes: Memor ia Succinate 1-20 (Same as: l ER 50 mg 15:00: Toprol XL) Her faust oral 00 May split tablet, tab, but extended do not release crush. Sodium No 250 mL, Memoria Chloride 1-20 Rate: To l 0.9% 14:29: prime line Barber (titrate) 00 and flush 250 mL remaining blood products., Dosing Weight 74, kg, Route: IV, Total Volume: 250, Start Date: 11/19/20 8:29:00 STREAMING MEDIA SPECIALIST, Duration: 1 day, Stop date: 11/20/20 8:28:00 STREAMING MEDIA SPECIALIST, Replace Every: 24 hr, 0 atorvastati No Notes: Abisai obdulio n 1-20 (Same As: l 03:00: Lipitor) Barber Amlodipine No Notes: Memor ia 1-19 (Same as: l 15:00: Norvasc) Barber Plavix No Notes: Memoria 1-19 (Same As: l 15:00: Plavix) Barber Finasteride No Notes: Abisai obdulio 1-19 (Same as: l 15:00: Proscar) [place] "Do Not Crush" Women of childbeari ng age should not touch or handle broken tablets Hazardous Drug Group 3:Reproduc tive risk Hazardous Drug -- Refer to safe handling procedure PPE Matrix Hydrochloro No 1 tab, Abisai obdulio thiazide 25 11-18 Route: PO, l MG / 15:00: Drug Form: Barber Lisinopril 00 TAB, 20 MG Oral Dosing Tablet Weight 74, kg, Daily, Start date: 11/18/20 9:00:00 STREAMING MEDIA SPECIALIST, Duration: 30 day, Stop date: 12/17/20 9:00:00 STREAMING MEDIA SPECIALIST tamsulosin No Notes: Memor ia 11-18 (Same As: l 15:00: Flomax) [place] 00 "Do Not Crush" Levaquin No Notes: Do Abisai obdulio 11-18 not give l 14:00: w/antacids , dairy pdt & minerals Take 1 hr before or 2 hr after dairy pdt (Same as:Levaqui n) Levaquin No Notes: Memoria 11-18 (Same l 08:00: as:Levaqui [place] 00 n) Saline No Notes: Memoria Flush 0.9% 11-18 Same as: l 03:00: BD [place] 00 Posiflush Sterile AMIODarone No 2 mg/ml. Me moria 900 mg in 11-18 Use Glass l D5W 500 ml 02:48: Bottle or He rmann IV 900 mg + 00 Non PVC Dextrose 5% Bag "Use in Water IV 0.22 482 mL micron in-line filter" MEDICATION WASTE Product Size: 900 mg Product Wasted: ___ mg Amiodarone No 2 mg/ml. Me moria 11-18 "Recommend l 02:47: ation: Use [place] 00 an in-line filter during administra tion for continuous infusions to reduce the incidence of phlebitis" (Same as Codarone) MEDICATION WASTE Product Size: 150 mg Product Wasted: ___ mg Acetaminoph No Notes: Do M emoria en 11-18 not exceed l 02:45: 4 gm/day. Barber 00 (Same as: Tylenol) Ondansetron No Notes: Abisai obdulio 11-18 (Same as: l 02:45: Zofran [place] 00 ODT) Saline No Notes: Memoria Flush 0.9% 11-18 Same as: l 02:45: BD [place] 00 Posiflush Sterile Heparin - No Route: Memori a one time - IVP, Drug l bolus for 02:35: form: INJ, He rmann DVT/PE 00 ONCE, Dosing Weight 74, kg, Priority: STAT, Start date: 11/17/20 20:35:00 STREAMING MEDIA SPECIALIST, Stop date: 11/17/20 20:35:00 STREAMING MEDIA SPECIALIST, 0 Heparin 80 No Route: Memor ia unit/kg 11-18 IVP, PRN, l Bolus 02:35: 5,900 [place] (Heparin 00 unit, 5.9 Dosing mL, Drug Weight) form: INJ, PRN, Heparin Protocol, Start date: 11/17/20 20:35:00 STREAMING MEDIA SPECIALIST Stop date: 12/17/20 20:34:00 STREAMING MEDIA SPECIALIST, 30 day, 0 Heparin 40 No Route: Memor ia unit/kg 11-18 IVP, PRN, l Bolus 02:35: 3,000 [place] (Heparin 00 unit, 3 Dosing mL, Drug Weight) form: INJ, PRN, Heparin Protocol, Start date: 11/17/20 20:35:00 STREAMING MEDIA SPECIALIST Stop date: 12/17/20 20:34:00 STREAMING MEDIA SPECIALIST, 30 day, 0 heparin No Notes: Memoria additive 11-18 [place] [address] unit 02:35: Concentrat H ermann [18 00 ion = 50 unit/kg/hr] unit/ ml + Premix Total Diluent volume = Sodium 500 ml Chloride Send Med 0.45% 500 Request 2 mL hours prior to next bag Digoxin No 0.5 mg, Memoria 11-18 Route: l 02:34: IVP, ONCE, [place] 00 Dosing Weight 74, kg, Priority: STAT, Start date: 11/17/20 20:34:00 STREAMING MEDIA SPECIALIST, Stop date: 11/17/20 20:34:00 STREAMING MEDIA SPECIALIST Ceftriaxone No Notes: Abisai obdulio 11-18 (Same As: l 00:32: Rocephin). [place] 00 Use with 100 mL NS and infuse over 30 min MEDICATION WASTE Product Size: 1000 mg Product Wasted: ___ mg Azithromyci No Notes: Abisai obdulio n 1-19 (Same As: l 00:32: Zithromax IV) Saline No Notes: Memoria Flush 0.9% 1-18 Same as: l 20:05: BD [place] 00 Posiflush Sterile clopidogrel 2019-10 Yes 75 mg = 1 M emoria 75 MG Oral 0-16 tab, PO, l Tablet 16:05: Daily, # [place] [Plavix] 00 90 tab, 2 Refill(s), Pharmacy: [facility], 177.8, cm, 08/15/20 10:35:00 CDT, Height, 80, kg, 08/15/20 10:35:00 CDT, Weight atorvastati Yes 20 mg = 1 M emoria n 20 mg 7-15 tab, PO, l oral tablet 15:23: Bedtime, # [place] 00 90 tab, 2 Refill(s), Pharmacy: [facility], 180.34, cm, 01/04/20 12:00:00 STREAMING MEDIA SPECIALIST, Height, 90, kg, 01/04/20 12:00:00 STREAMING MEDIA SPECIALIST, Weight atorvastati 2018-10 Yes 20 mg = 1 M emoria n 20 mg 0-11 tab, PO, l oral tablet 14:57: Bedtime, # Barber 46 90 tab, 2 Refill(s), Pharmacy: [facility] amLODIPine 2016-10 Yes 5mg Take 5 mg Saul yanes (NORVASC) 5 2-20 by mouth Meth sergio mg tablet 00:00: daily. st 00 zolpidem CR 2016-10 Yes 10mg Take 10 mg Ruiz (AMBIEN CR) 2-20 by mouth Meth sergio 12.5 MG CR 00:00: daily. st tablet 00 finasteride 2016-10 Yes 5mg Take 5 mg H jorge luis (PROSCAR) 5 2-20 by mouth Meth sergio mg tablet 00:00: daily. st 00 lisinopril- 2016-10 Yes 20{tbl} Take 20-25 Ruiz hydrochloro 2-20 tablets by [facility] thiazide 00:00: mouth st (PRINZIDE,Z 00 daily. ESTORETIC) 20-25 mg per tablet atorvastati 2017- Yes 10mg Take 10 mg Ruiz n (LIPITOR) 2-12 by mouth Meth sergio 10 MG 00:00: daily. st tablet 00 Zolpidem Zolpidem Yes [place] [address] Tartrate Tartrate Bajwa at bedtime [facility] Amiodarone Amiodarone Yes BENNET Q0.5D TAKE 1 Univers HCl - 200 HCl - 200 MARYSOL TABLET i ty of MG Oral MG Oral M.D. TWICE [place] Tablet Tablet DAILY. Physici ans Xarelto 20 Xarelto 20 Yes QD TAKE 1 U nivers MG Oral MG Oral TABLET ity of Tablet Tablet DAILY [place] Physici ans Atorvastati Atorvastati Yes TAKE 1 Univers n Calcium n Calcium TABLET AT ity of 20 MG Oral 20 MG Oral BEDTIME. [place] Tablet Tablet Physici ans Finasteride Finasteride Yes 1 QD TAKE 1 Univers 5 MG Oral 5 MG Oral TABLET ity of Tablet Tablet DAILY. [place] Physici ans Lisinopril Lisinopril Yes QD TAKE 1 U nivers 2.5 MG Oral 2.5 MG Oral TABLET ity of Tablet Tablet DAILY [place] Physici ans Tamsulosin Tamsulosin Yes QD TAKE 1 U nivers HCl - 0.4 HCl - 0.4 CAPSULE it y of MG Oral MG Oral DAILY [place] Capsule Capsule Physici ans Metoprolol Metoprolol Yes QD TAKE 1 U nivers Succinate Succinate TABLET ity of ER 100 MG ER 100 MG DAILY [place] Oral Tablet Oral Tablet P hysici Extended Extended ans Release 24 Release 24 Hour Hour Vital Signs Vital Name Observation Time Observation Value Comments Source Temperature Oral 2020-12-21 98.0 F [facility] rmann (F) 14:00:00 [facility] Respitory Rate 2020-12-21 [facility] elizabeth 14:00:00 Systolic (mm Hg) 2020-12-21 [facility] rmann 14:00:00 Diastolic (mm Hg) 2020-12-[address] [facility] ermann 14:00:00 Respitory Rate 2020-12-21 [facility] elizabeth 13:31:00 Temperature Oral 2020-12-21 98.6 F [facility] rmann (F) 10:00:00 Heart Rate 2020-12-21 [facility] 10:[facility]:00 Respitory Rate 2020-12-21 [facility] 10:00:00 Systolic (mm Hg) 2020-12-21 [facility] 10:00:00 Diastolic (mm Hg) 2020-12-21 [facility] 10:00:00 Temperature Oral 2020-12-21 97.8 F [facility] Jeyson rmann (F) 06:00:00 Heart Rate 2020-12-21 [facility] 06:00:00 Systolic (mm Hg) 2020-12-21 [facility] 06:00:00 Diastolic (mm Hg) 2020-12-21 [facility] 06:00:00 Height 2020-12-18 180.34 cm [facility] 11:48:00 Height 2020-12-12 180.34 cm [facility] Leonardo n 23:48:00 Weight 2020-12-12 [facility] 23:48:00 BMI Calculated 2020-12-12 [facility] 23:48:00 Systolic blood 2020-12-12 113 mm[Hg] Location: [facility] 13:14:00 Position: [place] [facility] Diastolic blood 2020-12-12 75 mm[Hg] Location: [facility] 13:14:00 Position: [place] [facility] S[facility] Body height 2020-12-12 72 [in_us] [facility] 13:14:00 [place] [facility] Weight 2020-12-12 169 [lb_av] [facility] 13:14:00 [place] [facility] Body mass index 2020-12-12 22.92 kg/m2 [facility] (BMI) [Ratio] 13:14:00 [place] [facility] Heart Rate 2020-12-12 106 /min Location: L [facility] 13:14:00 Radial; [place] Physician s Quality: Normal Temperature Oral 2020-11-23 97.9 F [facility] Jeyson rmann (F) 18:00:00 Heart Rate 2020-11-23 [facility] 18:00:00 Respitory Rate 2020-11-23 [facility] 18:00:00 Systolic (mm Hg) 2020-11-23 [facility] 18:00:00 Diastolic (mm Hg) 2020-11-23 [facility] 18:00:00 Temperature Oral 2020-11-23 97.4 F [facility] (F) 14:00:00 Heart Rate 2020-11-23 [facility] 14:00:00 Respitory Rate 2020-11-23 [facility] 14:00:00 Systolic (mm Hg) 2020-11-23 [facility] 14:00:00 Diastolic (mm Hg) 2020-11-23 [facility] 14:00:00 Respitory Rate 2020-11-23 [facility] 13:54:00 Temperature Oral 2020-11-23 97.8 F [facility] (F) 10:00:00 Heart Rate 2020-11-23 [facility] 10:00:00 Systolic (mm Hg) 2020-11-23 [facility] 10:00:00 Diastolic (mm Hg) 2020-11-23 [facility] 10:00:00 BMI Calculated 2020-11-18 [facility] 02:45:00 Height 2020-11-17 182.88 cm [facility] 20:04:00 BMI Calculated 2020-11-17 [facility] 20:04:00 Weight 2020-11-17 [facility] 20:04:00 Systolic (mm Hg) 2020-08-15 [facility] 15:25:00 Diastolic (mm Hg) 2020-08-15 [facility] 15:25:00 Heart Rate 2020-08-15 [facility] 15:25:00 Respitory Rate 2020-08-15 [facility] 15:25:00 Height 2020-08-15 177.8 cm [facility] 15:25:00 Weight 2020-08-15 [facility] 15:25:00 BMI Calculated 2020-08-15 [facility] 15:25:00 Systolic (mm Hg) 2020-01-04 [facility] 18:00:00 Diastolic (mm Hg) 2020-01-04 [facility] 18:00:00 Heart Rate 2020-01-04 [facility] 18:00:00 Respitory Rate 2020-01-04 [facility] 18:00:00 Height 2020-01-04 180.34 cm [facility] 18:00:00 Weight 2020-01-04 [facility] 18:00:00 BMI Calculated 2020-01-04 [facility] 18:00:00 Height 2019-11-23 182.88 cm Yoli Patterson n 16:17:00 Weight 2019-11-23 [facility] 16:17:00 BMI Calculated 2019-11-23 [facility] 16:17:00 Height 2018-08-30 182.88 cm Yoli Patterson n 18:25:00 Weight 2018-08-30 Yoli Patterson n 18:25:00 BMI Calculated 2018-08-30 [facility] 18:25:00 Systolic (mm Hg) 2018-08-30 [facility] 18:25:00 Diastolic (mm Hg) 2018-08-30 [facility] 18:25:00 Heart Rate 2018-08-30 Yoli Maddoxan n 18:25:00 Procedures Procedure Date / Time Performing Clinician Source Performed [QL] B TYPE NATRIURETIC 2020-12-26 [facility] [QL] BASIC METABOLIC 2020-12-26 00:00:00 [facility] PANEL W/EGFR Physicians [QL] CBC (INCLUDES 2020-12-26 00:00:00 [facility] DIFF/PLT) Physicians [QL] MAGNESIUM 2020-12-26 00:00:00 [facility] Physicians Plan of Care Planned Activity Planned Date Details Comments Source Future Scheduled 2021-05-31 INFLUENZA VACCINE [place] [facility] 00:00:00 [code = INFLUENZA VACCINE] Future Scheduled 2010 65+ PNEUMOCOCCAL [facility] 00:00:00 VACCINE (1 of 1 - PPSV23) [code = 65+ PNEUMOCOCCAL VACCINE (1 of 1 - PPSV23)] Future Scheduled 1995 COLONOSCOPY SCREENING Ho jo[place]ín [facility] 00:00:00 [code = COLONOSCOPY SCREENING] Future Scheduled 1995 SHINGLES VACCINES (#1) H jorge luis [facility] 00:00:00 [code = SHINGLES VACCINES (#1)] Future Scheduled 1957 COVID-19 VACCINE (1) Cristina hagan [facility] 00:00:00 [code = COVID-19 VACCINE (1)] Encounters Start End Encounter Admission Attending Care Care Encounter Source Date/Time Date/Time Type Type Clinicians Facility Department ID 2020-12-12 Inpatient U [facility] MED [id number] [facility] 16:32:00 2021-04-15 2021-04-15 Outpatient [facility]ML[facility] [id number] [facility] 2021-03-31 2021-03-31 Outpatient [facility]LMLC [facility] [id number] [facility] 2021-03-13 2021-03-13 Outpatient [facility]LMLC [facility] [id number] [facility] 2021-02-24 2021-02-24 Outpatient [facility]LMLC [facility]LMLC [id number] [facility] 2021-02-12 2021-02-12 Outpatient [facility]LMLC [facility]LMLC [id number] [facility] 2021-02-05 2021-02-05 Outpatient STLMLC [facility]LMLC [id number] [facility] 2021-01-08 2021-01-08 Outpatient [facility]LMLC [facility] [id number] [facility] 2020-12-31 2020-12-31 Outpatient STLMLC [facility]MLC [id number] [facility] 2020-12-12 2020-12-21 Outpatient Greg, [id number] 16:32:00 13:10:00 [place] [address] 2020-12-12 2020-12-21 Outpatient Greg, MHPL MHPL [id number] 16:32:00 13:10:00 Olasunkanmi [address] 2020-12-12 2020-12-12 AppointKENTON Dsouza [id number] [facility] 13:15:00 13:15:00 t; NIRAV GREGG [facility] GASTELUM M.D. Physici ans 2020-12-10 2020-12-10 Outpatient STLMLC STLC [id number] [facility] 2020-12-09 2020-12-09 Outpatient [facility]LMLC STLC [id number] [facility] 2020-12-08 2020-12-08 Outpatient [facility]LMLC STLC [id number] [facility] 2020-12-08 2020-12-08 Outpatient STLMLC [facility]LMLC [id number] [facility] 2020-12-02 2020-12-02 [facility] [id number] [facility] 2020-11-25 2020-11-25 [facility] [id number] [facility] 2020-11-17 2020-11-23 Outpatient Rebeccarobywinifred, MHPL MHPL [id number] 14:02:47 14:45:00 Simi 00 2020-11-17 2020-11-23 Outpatient Mayenkar, MHPL MHPL [id number] 14:02:47 14:45:00 Simi 00 2020-11-21 2020-11-21 [facility] [id number] [facility] 2020-11-17 2020-11-17 Inpatient E [facility] MED [id number] [facility] 20:45:00 14:02:00 2020-11-04 2020-11-04 Outpatient [facility]C [facility] [id number] [facility] 2020-10-29 2020-10-29 Outpatient [facility] [id number] [facility] 2020-10-20 2020-10-20 Outpatient [facility]LMLC [facility] [id number] [facility] 2020-10-20 2020-10-20 Outpatient [facility]LMLC [facility] [id number] [facility] 2020-10-06 2020-10-06 Outpatient [facility]LMLC [facility]LML[facility] [id number] [facility] 2020-10-01 2020-10-01 Outpatient [facility]C [facility] [id number] [facility] 2020-08-18 2020-08-18 Outpatient [facility]MLC [facility]LC [id number] [facility] 2020-08-15 2020-08-15 [id number] 10:30:00 23:59:59 Terrance 10 Keyshawn 2020-08-15 2020-08-15 [facility] [id number] 10:30:00 10:30:00 Terrance 09 Keyshawn 2020-08-11 2020-08-11 Outpatient [facility]LMLC STLC [id number] [facility] 2020-06-13 2020-06-13 [facility] [id number] [facility] 14:20:00 14:20:00 [employer] s - Drive [facility] Medicine Outpati ent Clinics 2020-06-11 2020-06-11 [facility] [id number] 10:45:00 10:45:00 [place] [employer] s - Drive [facility] l Medicine Outpati ent Clinics 2020-03-27 2020-03-27 [facility] [id number] 10:35:00 10:35:00 [place] [employer] s - Drive [facility] Medicine l Medicine Outpati ent Clinics 2020-03-10 2020-03-10 [facility] [id number] [facility] 08:00:00 08:00:00 [place] [address] Luke s - Drive [facility] Medicine Outpati ent Clinics 2020-03-03 2020-03-03 [facility] [id number] [facility] 10:15:00 10:15:00 [place] [address] [employer] s - Drive [facility] l Medicine Outpati ent Clinics 2020-02-26 2020-02-26 [facility] [id number] 12:19:00 12:19:00 [place] [employer] s - Drive [facility] Medicine Outpati ent Clinics 2020-01-14 2020-01-14 [facility] [id number] 10:45:00 10:45:00 [place] [employer] s - Drive [facility] Medicine Outpati ent Clinics 2020-01-04 2020-01-04 Outpatient NOE Garza [facility] [id number] 11:45:00 23:59:59 Terrance 08 Keyshawn 2020-01-03 2020-01-03 [facility] [id number] 16:51:00 16:51:00 [place] [employer] s - Drive [facility] Medicine Outpati ent Clinics 2019-12-25 2019-12-25 [facility] [id number] [facility] 08:20:00 08:20:00 [place] [employer] s - Drive [facility] Medicine Outpati ent Clinics 2019-12-17 2019-12-17 [facility] [id number] 11:00:00 11:00:00 [place] s - Drive [facility] Medicine Outpati ent Clinics 2019-11-23 2019-11-23 Outpatient [facility] [id number] 10:00:00 23:59:59 Terrance 07 Keyshawn 2019-11-08 2019-11-08 [facility] [id number] [facility] 15:00:00 15:00:00 [place] [employer] s - Drive [facility] Medicine Outpati ent Clinics 2019-11-06 2019-11-06 Outpatient [facility] [id number] 09:45:00 09:45:00 Terrance Keyshawn 2019-09-05 2019-09-06 [facility] [id number] 14:23:36 23:59:59 2019-08-08 2019-08-08 Out[facility] [id number] 13:00:00 13:00:00 Terrance 05 Keyshawn 2018-08-30 2018-08-30 Outpatient Kayla [facility] [id number] 13:30:00 23:59:59 Terrance Keyshawn Results Test Description Test Time Test Comments Results Result Comments Source [QL] CBC (INCLUDES DIFF/PLT) 2020-12-31 14:00:00 Test Item Value Reference Range Interpretation Comme nts WBC (test code = 6690-2) 6.8 {x10E3/uL} 3.4-10.8 RBC (test code = 789-8) 4.57 {x10E6/uL} 4.14-5.80 Hemoglobin (test code = 718-7) 13.4 g/dL 13.0-17.7 Hematocrit (test code = 4544-3) 42.7 % 37.5-51.0 MCV (test code = 787-2) 93 fL 79-97 MCH (test code = 785-6) 29.3 pg 26.6-33.0 MCHC; Below Low Threshold (test code = 786-4) 31.4 g/dL 31.5-35. 7 RDW (test code = 788-0) 15.1 % 11.6-15.4 Platelets (test code = 777-3) 209 {x10E3/uL} 150-450 Neutrophils (test code = 770-8) 55 % Not Estab. Lymphs (test code = 736-9) 30 % Not Estab. Monocytes (test code = 5905-5) 7 % Not Estab. Eos (test code = 713-8) 7 % Not Estab. Basos (test code = 706-2) 1 % Not Estab. Immature Cells (test code = Immature Cells) See Comment Neutrophils (Absolute) (test code = 751-8) 3.7 {x10E3/uL} 1.4-7.0 Lymphs (Absolute) (test code = 731-0) 2.0 {x10E3/uL} 0.7-3.1 Monocytes(Absolute) (test code = 742-7) 0.4 {x10E3/uL} 0.1-0.9 Eos (Absolute); Above High Threshold (test code = 0.5 {x10E3/uL} 0. 0-0.4 711-2) Baso (Absolute) (test code = 704-7) 0.1 {x10E3/uL} 0.0-0.2 Immature Granulocytes (test code = 30022-6) 0 % Not Estab. Immature Grans (Abs) (test code = 67519-8) 0.0 {x10E3/uL} 0.0-0.1 NRBC (test code = 55326-7) See Comment Hematology Comments: (test code = 68339-5) See Comment [facility] Physicians[QL] BASIC METABOLIC PANEL [id number] 14:00:00 Test Item Value Reference Range Interpretation Comments Glucose; Above High Threshold 101 mg/dL 65-99 (test code = 2345-7) BUN (test code = 3094-0) 19 mg/dL 8-27 Creatinine (test code = 2160-0) 1.15 mg/dL 0.76-1.27 eGFR If NonAfrcn Am (test code 62 mL/min/1.7 >59 = 60903-4) eGFR If Africn Am (test code = 72 mL/min/1.7 >59 51879-7) BUN/Creatinine Ratio (test code 17 -24 = 3097-3) Sodium, Serum (test code = 137 mmol/L 892-184 3661-2) Potassium (test code = 2823-3) 3.8 mmol/L 3.5-5.2 Chloride; Below Low Threshold 94 mmol/L 96-106 (test code = 2075-0) Carbon Dioxide, Total (test 28 mmol/L 20-29 code = 8-9) Calcium (test code = 94997-4) 8.7 mg/dL 8.6-10.2 [facility] Physicians[QL] [id number] 14:00:00 Test Item Value Reference Range Interpretation Comments Magnesium, Serum (test code = 1.8 mg/dL 1.6-2.3 08637-1) [facility] Physicians[QL] B TYPE NATRIURETIC PEPTIDE (BNP)2020-12-31 14:00:00 Test Item Value Reference Range Interpretation Comments B-Type Natriuretic Peptide; 1600.1 pg/mL 0.0-100.0 Above High Threshold (test code = 07332-8) [facility] PhysiciansCHEM [id number] 16:05:0098[facility] CHEM WSKUS9488-51-08 16:05:0037[facility] HermannCHEM EGSEL5541-00-58 16:05:001.65 [facility]annCHE[facility] OXQOL7203-51-80 16:05:12535Veuiuihu HermannCHEM PANEL 2020-12-21 16:05:003.5[facility] HermannCHEM OHYIQ1422-16-70 16:05:0096[facility]annCHEM BKLBL4758-16-20 16:05:0027[facility]annCHEM WLLOG9718-47-75 16:05:008.6[facility]annCHEM PVQGL3497-67-29 16:05:0011.5[facility]annCHEM BMVOI5416-97-01 16:05:0040[facility] HermannCHEM BGPCF2208-19-41 11:32:55691 [facility]annCHE[facility] VINPM7433-65-78 11:32:0045[facility]annCHEM PANEL 2020-12-20 11:32:001.99[facility]annCHEM OSZVD1929-97-65 11:32:11477Arygodmn HermannCHEM PHYRE7616-02-12 11:32:003.7[facility] HermannCHEM BAVWM2819-97-98 11:32:0096[facility]annCHEM WXXMX2335-35-30 11:32:0025[facility] HermannCHEM AAOKM2452-18-14 11:32:008.5[facility] HermannCHEM STTTZ7965-21-16 11:32:005.9 [facility]annCHEM PEWAB1283-38-43 11:32:002.8[facility] HermannCHEM PANEL 2020-12-20 11:32:75324Vrootbvg HermannCHEM XGYXZ0233-54-41 11:32:65751Szquweir HermannCHEM QUQOD9063-69-91 11:32:0097[facility] HermannCHEM KBLZB2676-94-64 11:32:001.6[facility]annCHEM SCTNI3071-58-23 11:32:0012.7[facility] HermannCHEM JDUKS4652-56-33 11:32:00 Test Item Value Reference Range Interpretation Comments B/C Ratio (test code = B/C Ratio) 23 1 6-25 [facility]ann[facility] QXNQI2224-16-12 11:32:003.1[facility] HermannCHEM PANEL 2020-12-20 11:32:00 Test Item Value Reference Range Interpretation Comments A/G Ratio (test code = A/G Ratio) 0.9 1 0.7-1.6 [facility]annCHEM CEFUM6298-34-76 11:32:0032[facility] HermannCHEM PANEL 2020-12-20 11:32:002.4[facility] HermannCHEM NTWJN1996-56-13 11:32:003.6[facility] VksfigsXAEVCOMPPB7072-28-27 11:32:0067.5[facility] KgowezjWKIBNZCSGZ4274-89-12 11:32:0021.0[facility] XnlhccrVOLUGPPZQM8894-37-10 11:32:007.2[facility] YVBCPKJUYG9757-89-17 11:32:003.4[facility] MrfutoeKIJQWBJSNX5384-23-55 11:32:000.9 [facility] SkuphjlKXSTHODGYO8787-04-39 11:32:005.5[facility] HermannHEMATOLOGY 2020-12-20 11:32:001.7[facility] PefyscfUJXFGDRXLD4773-92-25 11:32:000.6[facility] VvztzovGFHWYNXGCH7582-28-57 11:32:000.3[facility] RtwqiyrVROBSIAWND9526-14-67 11:32:000.1[facility] VhmexbgGTSPHXOULT7400-28-33 11:32:008.1[facility] JBOUYINDLE1508-71-31 11:32:004.13[facility] GqcwqvaITSNQLNTDC5889-38-21 11:32:00 12.3[facility] XrfeszxEFUMJZEVGQ1955-52-69 11:32:0037.7[facility] HermannHEMATOLOGY 2020-12-20 11:32:0091.2[facility] FhzwvimLKDZIBNFFU6097-04-81 11:32:00 Test Item Value Reference Range Interpretation Comments MCH (test code = MCH) 29.8 pg 27.0-31.0 [facility]KrnuflqKKEZLFBECV9870-98-82 11:32:0032.7[facility] HermannHEMATOLOGY 2020-12-20 11:32:0016.3[facility] FixktpcMPSGCTSFRS5009-90-54 11:32:96373Zefrutgg UwqgepkQAIJRNVZUT3663-65-65 11:32:009.3[facility] QyzbtzjDNIQQMOLZP6939-78-82 11:32:00 Test Item Value Reference Range Interpretation Comments PT (test code = PT) 16.8 s 12.0-14.7 [facility] PointeXtllwftAJSBDMABIB4426-13-18 11:32:00 Test Item Value Reference Range Interpretation Comments INR (test code = INR) 1.39 1 0.85-1.17 [facility] PointeRdjaqrpEVNZRYHANE7875-62-40 11:32:00 Test Item Value Reference Range Interpretation Comments PTT (test code = PTT) 75.0 s 22.9-35.8 [facility] PointeCmevovwTXOEMVBMAY9022-85-26 00:10:00 Test Item Value Reference Range Interpretation Comments PT (test code = PT) 16.8 s 12.0-14.7 [facility] PointeMboyvcdLDDCJRKSMY6311-78-54 00:10:00 Test Item Value Reference Range Interpretation Comments INR (test code = INR) 1.39 1 0.85-1.17 [facility] PointeTiljhhcOVVXFEVDSZ4450-45-81 00:10:00 Test Item Value Reference Range Interpretation Comments PTT (test code = PTT) 72.6 s 22.9-35.8 [facility] HermannCHEM [id number] 17:53:002.5[facility] HermannCHEM PANEL 2020-12-19 17:53:004.3[facility] HermannCHEM WGFDL4495-87-99 17:53:86273Djblnrir HermannCHEM TWHLO9337-02-74 17:53:0047[facility] HermannCHEM GFRRZ5052-98-13 17:53:002.28[facility] HermannCHEM JKUKS0498-30-15 17:53:54799Vopcqdno HermannCHEM TBRSU5734-81-07 17:53:003.9[facility] HermannCHEM OYGPH8207-93-78 17:53:0093 [facility] HermannCHEM MFPKY0870-36-85 17:53:0024[facility] HermannCHEM PANEL 2020-12-19 17:53:008.8[facility] HermannCHEM DUNDW0955-74-32 17:53:006.5[facility] HermannCHEM JTDXL2043-59-95 17:53:003.0[facility] HermannCHEM HRNLB3326-42-46 17:53:22073Bmxvfjwl HermannCHEM OUJID7527-73-65 17:53:35890Ifnzztop HermannCHEM AHSMS3352-42-86 17:53:43778Clzeyzwi HermannCHEM YXYKX3542-77-35 17:53:002.0 [facility] HermannCHEM VUQYL7860-40-50 17:53:0013.9[facility] HermannCHEM PANEL 2020-12-19 17:53:00 Test Item Value Reference Range Interpretation Comments B/C Ratio (test code = B/C Ratio) 21 1 6-25 [facility] HermannCHEM [id number] 17:53:003.5[facility] HermannCHEM PANEL 2020-12-19 17:53:00 Test Item Value Reference Range Interpretation Comments A/G Ratio (test code = A/G Ratio) 0.9 1 0.7-1.6 [facility] HermannCHEM [id number] 17:53:0027[facility] HermannHEMATOLOGY 2020-12-19 17:53:008.6[facility] NvvfznjIYZJXANXKL8846-87-27 17:53:004.22[facility] KexmgpfZUZATRJNBM0988-66-64 17:53:0012.4[facility] XiahdacEJDFJQGPAH7588-50-20 17:53:0038.8[facility] TsohnyrFWPZDUFMUO9462-13-69 17:53:0091.9[facility] TZGHZMXGBV7402-35-23 17:53:00 Test Item Value Reference Range Interpretation Comments MCH (test code = MCH) 29.5 pg 27.0-31.0 [facility] DogkvukCRSWBQYFWS4122-97-48 17:53:0032.1[facility] HermannHEMATOLOGY 2020-12-19 17:53:0016.4[facility] KwthfcpZYHEACAVCI8544-52-13 17:53:31575Qjedvhhd NzoptmtVOHMIUCSOE1948-96-22 17:53:009.5[facility] ZoqmjlpHHAGHVKLZH6485-00-05 17:53:00 Test Item Value Reference Range Interpretation Comments PTT (test code = PTT) 82.6 s 22.9-35.8 [facility] DzllpomXRYQCKEFWI6663-97-76 17:53:0068.7[facility] HermannHEMATOLOGY 2020-12-19 17:53:0021.3[facility] DnzqugmBKVRHAHBTW4790-05-67 17:53:007.5[facility] LzymirjMDKUYZYTQM2516-87-47 17:53:001.7[facility] VwgozopPLHOCRCSRZ4038-39-92 17:53:000.8[facility] LzvryzoBCXZTOLYHS6908-01-35 17:53:005.9[facility] WETPSGTQRI7733-49-68 17:53:001.8[facility] AugnpanCLCQBNIPJB1791-42-08 17:53:000.7 [facility] MszrfynFGYYHWPFUM4853-12-02 17:53:000.2[facility] HermannHEMATOLOGY 2020-12-19 17:53:000.1[facility] FghpsmyONUGULBCHF6366-66-57 21:49:00 Test Item Value Reference Range Interpretation Comments PT (test code = PT) 16.8 s 12.0-14.7 [facility] PjtybonGKEXYVDJXF2475-55-15 21:49:00 Test Item Value Reference Range Interpretation Comments INR (test code = INR) 1.39 1 0.85-1.17 [facility] ZzkzovyOXWVFDDYCW2571-22-68 21:49:009.0[facility] HermannHEMATOLOGY 2020-12-18 21:49:004.16[facility] NecfbpyGGUAMIEKXP1530-94-49 21:49:0012.8[facility] JajmcjyXCJILDWJTH3357-50-26 21:49:0038.2[facility] XlebokvSBMYJBVEES6038-02-52 21:49:0091.8[facility] StnwqvsGSWARSBONK3616-00-35 21:49:00 Test Item Value Reference Range Interpretation Comments MCH (test code = MCH) 30.8 pg 27.0-31.0 [facility] DcrjntaOXAVHUCRBX1030-84-96 21:49:0033.6[facility]annHEMATOLOGY 2020-12-18 21:49:0016.2[facility] VkdmtkiQGKUEVFQAT9662-15-14 21:49:65603Ujqrjgsa DzaumffPLROFUDGHY4308-03-17 21:49:008.5[facility] SrghomuHZSTQYTHEK0582-29-14 21:49:0073.1[facility] KlshslfJZRNISBSUX3639-52-37 21:49:0017.4[facility] CMCOPRKUHC5823-25-02 21:49:007.3[facility] NodrblbUDNTRMJIMU3648-21-92 21:49:001.6 [facility] MnfhyyuVBBZVCTWUW3969-89-25 21:49:000.6[facility]annHEMATOLOGY 2020-12-18 21:49:006.6[facility] SfkgpkrKPBMPLLGIC9918-62-66 21:49:001.6[facility] CtltqyfIGCCNCDJWI5867-26-50 21:49:000.7[facility] UuhqllhMCINRSKDWJ6957-49-39 21:49:000.1[facility] JoveqrtUOYBDARCXG7089-03-42 21:49:000.1[facility] HermannCHEM FYZWV7932-17-78 16:41:000.14[facility]annCHEM XEJSB9829-91-70 10:26:002.3 [facility]annCHEM QIYOF9075-80-46 10:26:005.0[facility]annBODY FLUIDS 2020-12-16 20:40:00Pleural (12/16/20 2:40 PM)[facility]ann[facility] FLUIDS 2020-12-16 20:40:001.1[facility]annBODY EZYYUM6178-48-59 20:40:00Yellow (12/16/20 2:40 PM)[facility]ann[facility] SUNFUY0735-92-75 20:40:00Slight Cloudy (12/16/20 2:40 PM)[facility]annB[facility] PMRBUS1936-22-47 20:40:34097Yegwouid HermannBODY IZCMIA0125-27-91 20:40:63564Kosduiou HermannBODY OYBJXX2212-96-26 20:40:00Pleural (12/16/20 2:40 PM)[facility]annB[facility] JILLMZ0799-31-15 20:40:00 39[facility]annBODY FIXXTI7377-91-07 20:40:0050[facility]annBODY FLUIDS 2020-12-16 20:40:0011[facility]annB[facility] EJDPST1727-67-29 20:40:00Pleural (12/16/20 2:40 PM)[facility]ann[facility] QWHGUM6626-32-80 20:40:72511Xrgewfoz HermannBODY WBHPWM4360-68-38 20:40:00Pleural (12/16/20 2:40 PM)[facility] BODY ZVPCKN4200-94-56 20:40:78539Iiyalhsz HermannBODY FMJACP6993-35-46 20:40:00 Pleural (12/16/20 2:40 PM)[facility] OLPGTB6285-19-62 20:40:00<10 [facility] LZRNNI0799-63-75 20:40:00Pleural (12/16/20 2:40 PM)[facility] XZATZR7871-41-58 20:40:00 Test Item Value Reference Range Interpretation Comments BODY FLUID, PH (test code = BODY 8.00 1 FLUID, PH) [facility] TDSNXK6051-99-98 20:40:00Pleural (12/16/20 2:40 PM)[facility]annB[facility] LGKMQC0107-37-41 20:40:002.2[facility]annB[facility] MEQFRC6061-44-83 20:40:00Pleural (12/16/20 2:40 PM)[facility]ann[facility] XPBPFU8557-71-25 20:40:00 15[facility] OezychzTHJSRCIQCD5755-98-45 17:23:00Not Detected (12/16/20 11:23 AM) [facility]annCHEM JCPGI3972-21-49 00:34:80426Mmasdope HermannCHEM PANEL 2020-12-15 00:34:006.8[facility]ann[facility]ARDIAC PMJMBRF3323-45-81 14:33:691046 [facility] BUNIG3626-57-86 09:02:00 Test Item Value Reference Range Interpretation Comments B/C Ratio (test code = B/C Ratio) 18 1 6-25 [facility] DGKYM8201-79-77 09:02:002.9[facility]annCHEM PANEL 2020-12-13 09:02:003.7[facility]annCHEM ZEJBI8530-91-17 09:02:00 Test Item Value Reference Range Interpretation Comments A/G Ratio (test code = A/G Ratio) 0.8 1 0.7-1.6 [facility] QWYFG3987-21-19 09:02:0048[facility]annCHEM PANEL 2020-12-13 09:02:0037[facility]annCHEM OYNSS6020-79-47 09:02:0094[facility]annCHEM AIJTE7573-44-87 09:02:001.3[facility]annCARDIAC JLRJLJH0002-51-18 05:01:000.04[facility]annCARDIAC IGCKAKA4006-73-21 00:03:000.03[facility]annCHEM YTYSA9258-85-12 00:03:000.5[facility]annCHEM KJWJF6617-71-95 00:03:001.0[facility][QL] BASIC METABOLIC PANEL W/JMMF3004-14-92 09:07:00 Test Item Value Reference Range Interpretation Comments Glucose; Above High Threshold 101 mg/dL 65-99 (test code = 2345-7) BUN (test code = 3094-0) 17 mg/dL 8-27 Creatinine; Above High 1.49 mg/dL 0.76-1.27 Threshold (test code = 2160-0) eGFR If NonAfrcn Am; Below Low 45 mL/min/1.7 >59 Threshold (test code = 84295-6) eGFR If Africn Am; Below Low 52 mL/min/1.7 >59 Threshold (test code = 44088-4) BUN/Creatinine Ratio (test code 08-23 = 3097-3) Sodium, Serum (test code = 134 mmol/L 581-319 0900-2) Potassium; Below Low Threshold 3.2 mmol/L 3.5-5.2 (test code = 2823-3) Chloride; Below Low Threshold 93 mmol/L 96-106 (test code = 2075-0) Carbon Dioxide, Total (test 25 mmol/L code = 8-9) Calcium (test code = 02263-8) 9.1 mg/dL 8.6-10.2 [facility][QL] [id number] 09:07:00 Test Item Value Reference Range Interpretation Comments Magnesium, Serum (test code = 1.7 mg/dL 1.6-2.3 37587-4) [facility][QL] B TYPE NATRIURETIC PEPTIDE (BNP)2020-12-11 09:07:00 Test Item Value Reference Range Interpretation Comments B-Type Natriuretic Peptide; 1066.2 pg/mL 0.0-100.0 Above High Threshold (test code = 69332-4) [facility][QL] B TYPE NATRIURETIC PEPTIDE (BNP)2020-12-04 08:28:00 Test Item Value Reference Range Interpretation Comments B-Type Natriuretic Peptide; 1259.7 pg/mL 0.0-100.0 Above High Threshold (test code = 34381-0) [facility]icians[facility] BQAIT0426-02-05 09:42:60634Nlswwggs Barber CHEM VWNYV9147-07-31 09:42:0019[facility]annCHEM YOQPV1696-15-07 09:42:000.87 [facility] YEIBC9940-51-05 09:42:28392Ydsehmpa HermannCHEM PANEL 2020-11-23 09:42:003.8[facility]annCHEM PSVOX7992-91-68 09:42:12422Wdpzjgsz HermannCHEM DKAOC3739-14-67 09:42:0025[facility]annCHEM ZAYPL0012-04-59 09:42:008.1[facility]annCHEM JZWSR2134-55-59 09:42:0011.8[facility]annCHEM GLZFV2181-17-80 09:42:0084[facility] CpojmzcMOWIUNNIEI5392-16-06 09:42:0075.2 [facility] JxxytobKDEHFMETVC4310-79-84 09:42:0013.3[facility] HermannHEMATOLOGY 2020-11-23 09:42:009.7[facility] GdgdduaVLKJZJKFIA5317-77-12 09:42:001.3[facility] KkazaxeXWNNMLLEGE1657-27-63 09:42:000.5[facility] ZbhsvlrXRXIPOJMJA6314-06-33 09:42:005.2[facility] TpnufpxVEXRRQEXOC1353-56-98 09:42:000.9[facility] STPQXXSGOK8508-98-20 09:42:000.7[facility] XsawmzzFZZCJBWKVA1276-68-24 09:42:000.1 [facility] XtikkbfWWXKXDREWH6299-20-78 09:42:006.9[facility] HermannHEMATOLOGY 2020-11-23 09:42:003.26[facility] EsiawqgRHRAYCAWHA4702-76-88 09:42:0010.4[facility] FmxbkhvRICBZZJTBK8092-98-05 09:42:0030.6[facility] XocymfmHKWVOHUYNB2538-14-87 09:42:0093.9[facility] YktgbtrLSTXVBNXBC5704-63-02 09:42:00 Test Item Value Reference Range Interpretation Comments MCH (test code = MCH) 31.8 pg 27.0-31.0 [facility] CpodyerAZTEBLJEWA8519-75-83 09:42:0033.9[facility] HermannHEMATOLOGY 2020-11-23 09:42:0015.1[facility] MtfsmhhWMVUVJCGQP9182-24-44 09:42:67613Spwcswzu SazkeugHDXRVEZTAZ7759-74-52 09:42:008.0[facility] HermannCHEM QFZOG0175-08-50 09:33:0091[facility]annCHEM WUXFP1027-69-52 09:33:0021[facility] HermannCHEM IZYFE8066-50-62 09:33:001.00[facility] HermannCHEM MWEQA6672-48-57 09:33:21684 [facility]annCHEM WRFFU4457-95-64 09:33:003.8[facility] HermannCHEM PANEL 2020-11-22 09:33:66740Uzxhyety HermannCHEM YZYPW5017-70-56 09:33:0025[facility]annCHEM ABMHD6463-24-11 09:33:007.9[facility] HermannCHEM OFCIA2090-42-24 09:33:005.5[facility] HermannCHEM PSZGS5639-14-05 09:33:002.1[facility] HermannCHEM MRJWV3931-25-51 09:33:0056[facility] HermannCHEM MXRPF8586-08-87 09:33:0034 [facility]annCHEM GHMDF9428-44-42 09:33:0074[facility] HermannCHEM PANEL 2020-11-22 09:33:001.6[facility] HermannCHEM XMXAK9517-65-07 09:33:0011.8[facility] HermannCHEM BAMLK9867-79-18 09:33:00 Test Item Value Reference Range Interpretation Comments B/C Ratio (test code = B/C Ratio) 21 1 6-25 [facility]annCHEM CHXFL1119-34-84 09:33:003.4[facility] HermannCHEM PANEL 2020-11-22 09:33:00 Test Item Value Reference Range Interpretation Comments A/G Ratio (test code = A/G Ratio) 0.6 1 0.7-1.6 [facility]annCHEM WDCMP3219-44-22 09:33:0073[facility] HermannHEMATOLOGY 2020-11-22 09:33:007.2[facility] VeymlgeBBLZRYBLPS0853-92-46 09:33:003.17[facility] QsorcqiFZSCOAGPRZ9201-14-84 09:33:0010.4[facility] DoajxneSNADJPSEFZ2030-26-07 09:33:0030.1[facility] EdpwtslORXSOFVKHV6322-92-01 09:33:0095.1[facility] UAOKZWGMDP2057-51-30 09:33:00 Test Item Value Reference Range Interpretation Comments MCH (test code = MCH) 32.7 pg 27.0-31.0 [facility] FzcvwiaKZQKDVKWGK2939-04-25 09:33:0034.4[facility] HermannHEMATOLOGY 2020-11-22 09:33:0015.1[facility] AqytowvVNIZMQEDWJ8293-03-59 09:33:56361Wjqkcvkp XivbvmdWTSPAPJAYB5773-65-35 09:33:008.0[facility] XuxkgboLHSFHMCVVH5088-70-33 09:33:0077.0[facility] KvaktliPXSMFDZTFL4820-81-37 09:33:0012.9[facility] OBGIPCYYJV7312-48-42 09:33:008.9[facility] IxlqpbjXTOOOTUFHT5427-43-87 09:33:001.1 [facility] WboeuzjGUQYHEEPOS3273-85-56 09:33:000.1[facility] HermannHEMATOLOGY 2020-11-22 09:33:005.6[facility] LnrekkiGUHCVQQGUS0126-94-92 09:33:000.9[facility] EexruvjTZPHZOTEIN4313-52-37 09:33:000.6[facility] MphgdniINXZYBVQLL5641-31-09 09:33:000.1[facility] LpzufwyQSPFODGXBN6230-63-30 16:16:00 Test Item Value Reference Range Interpretation Comments PTT (test code = PTT) 102.9 s 22.9-35.8 [facility]annCHEM VFQPE5171-89-67 09:04:40546Fvhcywcz HermannCHEM PANEL 2020-11-21 09:04:0025[facility] HermannCHEM YBQLX8631-30-58 09:04:001.13[facility]annCHEM IHLXL5215-78-16 09:04:87429Rtydrdgp HermannCHEM SMPLJ0884-75-00 09:04:003.8[facility]annCHEM LVWPN5788-59-31 09:04:14617Fnrbycap HermannCHEM NZNQK1933-64-97 09:04:0025[facility]annCHEM GJMYE7109-86-18 09:04:0011.8 [facility]annCHEM PTDKH7808-82-42 09:04:007.9[facility] HermannCHEM PANEL 2020-11-21 09:04:00 Test Item Value Reference Range Interpretation Comments B/C Ratio (test code = B/C Ratio) 22 1 6-25 [facility]annCHEM YZUDX9047-84-30 09:04:005.7[facility] HermannCHEM PANEL 2020-11-21 09:04:002.2[facility]annCHEM EUXGY3157-98-70 09:04:003.5[facility] HermannCHEM EGYWX5048-68-38 09:04:00 Test Item Value Reference Range Interpretation Comments A/G Ratio (test code = A/G Ratio) 0.6 1 0.7-1.6 [facility]annCHEM QMDSF3687-21-16 09:04:0067[facility] HermannCHEM PANEL 2020-11-21 09:04:0048[facility] HermannCHEM CWGLZ5840-12-78 09:04:0081[facility] HermannCHEM DHJMD3670-09-77 09:04:001.7[facility] HermannCHEM QWKHJ8595-42-41 09:04:0063[facility] VehguttFDWBILFHUM6224-29-67 09:04:009.2[facility] CVHDAEAZLJ4075-25-47 09:04:003.29[facility] MqworvnAQGKPUPGFB6549-95-30 09:04:00 10.6[facility] AfmrwwgLOXOLDHOOS2438-78-70 09:04:0031.3[facility] HermannHEMATOLOGY 2020-11-21 09:04:0095.1[facility] HwlkfjyHJHJISYUXY5114-97-50 09:04:00 Test Item Value Reference Range Interpretation Comments MCH (test code = MCH) 32.2 pg 27.0-31.0 [facility] HskuhroWXSQTKYWER6023-26-17 09:04:0033.8[facility] HermannHEMATOLOGY 2020-11-21 09:04:0014.8[facility] TnrfkgdZNBSKFVGDB4789-09-96 09:04:58082Ookxyqqb ZwwxdndXZGLURCHBJ1418-23-53 09:04:008.3[facility] GovuvpzOIVDYVOTZT0359-10-79 09:04:0077.6[facility] PufskidFOPZOTSHLM2470-19-17 09:04:0013.3[facility] RWOWHUTHQC5592-39-82 09:04:008.5[facility] MetuarhDMASFYHILR8599-90-82 09:04:000.4 [facility] UxxmpggSXLNNUQJIB2911-50-94 09:04:000.2[facility] HermannHEMATOLOGY 2020-11-21 09:04:007.1[facility] WllwzdrXODMXZIKZD2930-63-85 09:04:001.2[facility] RdydekwUQPYSITYVL4421-14-30 09:04:000.8[facility] KclwwxuLEQDZJQNAR2542-88-19 09:04:00 Test Item Value Reference Range Interpretation Comments PTT (test code = PTT) 65.3 s 22.9-35.8 [facility]LonisyjXJLUVRQFUL6968-64-43 02:13:00 Test Item Value Reference Range Interpretation Comments PTT (test code = PTT) 116.3 s 22.9-35.8 [facility] VXSJU3067-32-03 11:31:000.21Metxriok HermannCHEM PANEL 2020-11-20 11:31:00 Test Item Value Reference Range Interpretation Comments B/C Ratio (test code = B/C Ratio) 15 1 6-25 [facility]CHE[facility] DHFLO2669-61-44 11:31:006.2[facility] HermannCHEM PANEL 2020-11-20 11:31:002.6[facility] HermannCHEM TAHBK2888-86-10 11:31:003.6[facility] HermannCHEM MCXWL8528-74-27 11:31:00 Test Item Value Reference Range Interpretation Comments A/G Ratio (test code = A/G Ratio) 0.7 1 0.7-1.6 [facility]CHE[facility] FEQRQ2028-54-14 11:31:0080Metxrial HermannCHEM PANEL 2020-11-20 11:31:91482Scwfnpvk HermannCHEM LUSWA0814-59-37 11:31:0065[facility]CHEM YYJCZ6417-53-69 11:31:003.1[facility] CenterQgobhgzGHZOMZQVBH4763-07-06 23:30:00 Test Item Value Reference Range Interpretation Comments PT (test code = PT) 17.2 s 12.0-14.7 [facility] PointeLujrlqyYAOOCUPIUI5680-74-87 23:30:00 Test Item Value Reference Range Interpretation Comments INR (test code = INR) 1.44 1 0.85-1.17 [facility] PzbjysfNHBTGJYLEJ2091-80-65 16:01:00 Test Item Value Reference Range Interpretation Comments PT (test code = PT) 16.8 s 12.0-14.7 [facility] PthrcwvNDAADIXCMU6170-88-49 16:01:00 Test Item Value Reference Range Interpretation Comments INR (test code = INR) 1.39 1 0.85-1.17 [facility] QXAVVSE4852-78-55 14:48:00Negative (11/19/20 8:48 AM) [facility] EUHUADI8005-48-46 14:27:00Product available 4(11/19/20 8:27 AM)[facility] HermannCHEM XCNIZ6094-46-62 11:38:002.2[facility] HermannCHEM SJLNV1650-77-70 11:38:003.3[facility] HermannPARATHYROID QZOWENZ2536-26-05 11:38:001.10[facility] HermannPARATHYROID VUFVKJN9681-20-83 11:38:001.11[facility] MstkwlxHGAUPEJHCJ3429-56-38 10:03:00 Test Item Value Reference Range Interpretation Comments PT (test code = PT) 16.6 s 12.0-14.7 [facility] CnqqcjaJSWXDZZSQH7491-71-21 10:03:00 Test Item Value Reference Range Interpretation Comments INR (test code = INR) 1.37 1 0.85-1.17 [facility]annCHEM YOEJW0441-67-39 04:04:001.6[facility] HermannCARDIAC ENZYMES 2020-11-18 09:18:000.08[facility] HermannCHEM BIPGU2085-91-32 09:18:001.9[facility] HermannSPECIAL ZAUFTLBOP9163-46-21 09:18:000.2[facility] HermannTUMOR MARKERS 2020-11-18 09:18:001.1[facility]annCARDIAC ATCBCMD6695-13-61 03:01:000.06 [facility]annCHEM UMIKG8906-55-39 03:01:00<0.05[facility] HermannHEMATOLOGY 2020-11-18 01:18:003.92[facility] YqtdxliPFSUPRGKPQ5802-03-90 01:18:00Not Detected (11/17/20 7:18 PM)[facility]annCARDIAC FTNXFJG8210-78-88 22:50:000.07[facility] HermannCARDIAC AISJJFC1940-88-25 22:50:430012Ufpjsjuw HermannCHEM PANEL 2020-11-17 22:50:94811Zhcsrilf Barber
[2021-05-07] MEDS ORDERED: PHENYLEPHRINE 0.5% NOSE 15ML NAS ONE (15:46)
--- NOTE | 2021-05-07 16:40 | EDPHYS ---
Physician Documentation [facility] Name: Manjeet Zhu Age: 75 yrs Sex: Male : 1945 Arrival Date: 05/07/2021 Time: 15:07 Bed 17 Private MD: ED Physician Sumit Jiang HPI: 05/07 15:30 This 75 yrs old Male presents to ER via Ambulatory with complaints of Nose kb Bleed. 15:30 The patient presents with a nose bleed, occurred after blowing nose, and the bleeding kb is not resolved and continues in ER. Onset: The symptoms/episode began/occurred this morning. Modifying factors: The symptoms are alleviated by nothing. the symptoms are aggravated by blowing nose. Associated signs and symptoms: The patient has no apparent associated signs or symptoms, Loss of consciousness: the patient experienced no loss of consciousness. Severity of symptoms: At their worst the symptoms were mild in the emergency department the symptoms are unchanged. The patient has not experienced similar symptoms in the past. The patient has not recently seen a physician. Historical: - Allergies: 15:18 No Known Allergies; sv - PMHx: 15:18 CVA; High Cholesterol; Hypertension; Myocardial infarction; sv - Immunization history:: Client reports receiving the 2nd dose of the Covid vaccine, Client reports receiving the 1st dose of the Covid vaccine. - Social history:: Smoking status: Patient denies any tobacco usage or history of. ROS: 15:27 Constitutional: Negative for fever, chills, and weight loss. kb 15:27 ENT: Positive for nose bleed. 15:27 All other systems are negative. Exam: 15:30 Constitutional: This is a well developed, well nourished patient who is awake, alert, kb and in no acute distress. Head/Face: Normocephalic, atraumatic. Respiratory: Respirations even and unlabored. No increased work of breathing, no retractions or nasal flaring. Skin: Warm, dry with normal turgor. Normal color. MS/ Extremity: Pulses equal, no cyanosis. Neurovascular intact. Full, normal range of motion. Neuro: Awake and alert, GCS 15, oriented to person, place, time, and situation. Moves all extremities. Normal gait. Psych: Awake, alert, with orientation to person, place and time. Behavior, mood, and affect are within normal limits. 15:30 ENT: Nose: External nose: no obvious acute abnormality, bleeding, is seen from the right nare, and is minimal, no septal hematoma is appreciated. Vital Signs: 15:17 BP 100 / 84; Pulse 73; Resp 16; Temp 97.5; Pulse Ox 98% ; Height 5 ft. 9 in. (175.26 sv cm); Pain 0/10; 17:22 BP 99 / 68; Pulse 66; Resp 17 S; Pulse Ox 98% on R/A; jd3 Procedures: 16:23 Epistaxis treatment: A small amount of bleeding noted from Treated using Oxymetazoline rn sprays, nasal clamp, rhino rocket, Bleeding decreased. placed by Dr. Jiang. MDM: 15:15 Patient medically screened. kb 15:27 Data reviewed: vital signs, nurses notes. Data interpreted: Pulse oximetry: on room air kb is 98 %. Interpretation: normal. 16:23 Counseling: I had a detailed discussion with the patient and/or guardian regarding: the kb historical points, exam findings, and any diagnostic results supporting the discharge/admit diagnosis, the need for outpatient follow up, an ENT specialist, to return to the emergency department if symptoms worsen or persist or if there are any questions or concerns that arise at home. Administered Medications: 15:41 Drug: Hugo-Synephrine (phenylephrine) [place] 0.5 % 2 sprays Route: Intranasal; Site: jd3 right nare; 16:40 Follow up: Response: No adverse reaction jd3 17:22 Drug: Augmentin (Amoxicillin-Clavulanate) 875 mg Route: PO; jd3 17:22 Follow up: Response: Medication administered at discharge. jd3 Disposition: 16:23 Co-signature as Attending Physician, Sumit Jiang MD I agree with the assessment and rn plan of care. PA/RECRUITER COORDINATOR's history reviewed, patient interviewed, and examined. HPI: Nose bleed, right nare, no trauma, + hx of same in past. My personal exam of patient reveals: + mild right nare bleeding and blood clots, no visible blood vessel or focus of bleeding I agree with assessment and care plan and confirm the diagnosis (es) above. Disposition Summary: 05/07/21 16:39 Discharge Ordered Location: Home kb Condition: Stable kb Diagnosis - Epistaxis kb Followup: kb - With: Emergency Department - When: As needed - Reason: Worsening of condition Followup: kb - With: Private Physician - When: 2 - 3 days - Reason: Recheck today's complaints, Continuance of care, Re-evaluation by your physician Discharge Instructions: - Discharge Summary Sheet kb - Nosebleed, Adult, Entc-tl-Bura kb Forms: - Medication Reconciliation Form kb - Thank You Letter kb - Antibiotic Education kb - Prescription Opioid Use kb Prescriptions: - Augmentin 875-125 mg Oral Tablet - take 1 tablet by ORAL route every 12 hours for 10 days; 20 tablet; Refills: 0, kb Product Selection Permitted Signatures: Evelyn Malave, MIRIAN-C MIRIAN-Jennifer Vidales RN Sumit Red MD MD rn Davies, Jonathon, RN RN jd3
--- NOTE | 2021-05-07 16:40 | ER ---
Nurse's Notes [facility] Name: Manjeet Zhu Age: 75 yrs Sex: Male : 1945 Arrival Date: 05/07/2021 Time: 15:07 Bed 17 Private MD: Diagnosis: Epistaxis Presentation: 05/07 15:17 Chief complaint: Patient states: nose bleed since this morning. Pt is on blood sv thinners. Coronavirus screen: Client denies travel out of the [place] in the last 14 days. At this time, the client does not indicate any symptoms associated with coronavirus-19. Ebola Screen: No symptoms or risks identified at this time. Initial Sepsis Screen: Does the patient meet any 2 criteria? No. Patient's initial sepsis screen is negative. Does the patient have a suspected source of infection? No. Patient's initial sepsis screen is negative. Risk Assessment: Do you want to hurt yourself or someone else? Patient reports no desire to harm self or others. Onset of symptoms was May 07, 2021. 15:17 Method Of Arrival: Ambulatory sv 15:17 Acuity: KAVITA 4 sv Historical: - Allergies: 15:18 No Known Allergies; sv - PMHx: 15:18 CVA; High Cholesterol; Hypertension; Myocardial infarction; sv - Immunization history:: Client reports receiving the 2nd dose of the Covid vaccine, Client reports receiving the 1st dose of the Covid vaccine. - Social history:: Smoking status: Patient denies any tobacco usage or history of. Screenin:42 Abuse screen: Denies threats or abuse. Nutritional screening: No deficits noted. jd3 Tuberculosis screening: No symptoms or risk factors identified. Fall Risk Ambulatory Aid- None/Bed Rest/Nurse Assist (0 pts). Gait- Normal/Bed Rest/Wheelchair (0 pts) Mental Status- Oriented to own ability (0 pts). Total Paula Fall Scale indicates No Risk (0-24 pts). Assessment: 15:18 Reassessment: Nose clamps placed on pt. sv 15:41 General: Appears in no apparent distress. comfortable, Behavior is calm, cooperative, jd3 appropriate for age. Pain: Denies pain. Neuro: Level of Consciousness is awake, alert, obeys commands, Oriented to person, place, time, situation. Cardiovascular: Denies chest pain, Capillary refill < 3 seconds Patient's skin is warm and dry. Respiratory: Airway is patent Respiratory effort is even, unlabored, Respiratory pattern is regular, symmetrical, Denies cough, shortness of breath. GI: No signs and/or symptoms were reported involving the gastrointestinal system. : No signs and/or symptoms were reported regarding the genitourinary system. EENT: Nares bleeding noted to right nares. nose clamp in place. Derm: Skin is intact, Skin is dry, Skin is normal, Skin temperature is warm. Musculoskeletal: Circulation, motion, and sensation intact. Range of motion: intact in all extremities. 16:40 Reassessment: Patient appears in no apparent distress at this time. No changes from jd3 previously documented assessment. Patient and/or family updated on plan of care and expected duration. Pain level reassessed. Patient is alert, oriented x 3, equal unlabored respirations, skin warm/dry/pink. 17:23 Reassessment: Patient appears in no apparent distress at this time. Patient and/or jd3 family updated on plan of care and expected duration. Pain level reassessed. Patient is alert, oriented x 3, equal unlabored respirations, skin warm/dry/pink. Rhino rocket in place. bleeding stopped at this time. even and steady gait upon discharge. reported understanding of discharge instructions. Vital Signs: 15:17 BP 100 / 84; Pulse 73; Resp 16; Temp 97.5; Pulse Ox 98% ; Height 5 ft. 9 in. (175.26 sv cm); Pain 0/10; 17:22 BP 99 / 68; Pulse 66; Resp 17 S; Pulse Ox 98% on R/A; jd3 ED Course: 15:07 Patient arrived in ED. rg4 15:14 Librado Emmanuel RN is Primary Nurse. jd3 15:15 Evelyn Malave FNP-C is [facility] kb 15:15 Sumit Jiang MD is Attending Physician. kb 15:18 Triage completed. sv 15:18 Arm band placed on. sv 15:19 Nurse Practitioner and/or Physician Pearl Maker to see patient. sv 15:43 Patient has correct armband on for positive identification. Bed in low position. Call jd3 light in reach. Side rails up X2. Pulse ox on. NIBP on. 17:24 No provider procedures requiring assistance completed. Patient did not have IV access jd3 during this emergency room visit. Administered Medications: 15:41 Drug: Hugo-Synephrine (phenylephrine) [place] 0.5 % 2 sprays Route: Intranasal; Site: jd3 right nare; 16:40 Follow up: Response: No adverse reaction jd3 17:22 Drug: Augmentin (Amoxicillin-Clavulanate) 875 mg Route: PO; jd3 17:22 Follow up: Response: Medication administered at discharge. jd3 Outcome: 16:39 Discharge ordered by . kb 17:24 Discharged to home ambulatory. jd3 17:24 Condition: stable 17:24 Discharge instructions given to patient, Instructed on discharge instructions, follow up and referral plans. medication usage, Demonstrated understanding of instructions, follow-up care, medications, Prescriptions given X 1. 17:24 Patient left the ED. jd3 Signatures: Evelyn Malave, SECONDARY MARKET MANAGER-C SECONDARY MARKET MANAGER-Jennifer Vidales RN RN Tere Trujillo 4 Librado Emmanuel RN RN jd3 Corrections: (The following items were deleted from the chart) 15:18 15:17 Pulse 73bpm; Resp 16bpm; Pulse Ox 98%; Temp 97.5F; Height 5 ft. 9 in.; Pain 0/10; sv sv
[2021-05-07 17:31] VITALS: TEMP 97.5; O2SAT 98
[2021-05-07 17:33] VITALS: BP 99/68
[2021-05-07] MEDS ORDERED: AMOX/K CLAV 875 MG TAB ONE (17:35)
== END 2021-05-07 17:24 | disposition home or self-care (01) ==
LOC: ER 15:02
PROC: 2Y41X5Z Packing of Nasal Region using Packing Material (ICD-10-PCS; principal; 2021-05-07)
DX: R04.0 Epistaxis (principal)
CPT/HCPCS: 30901; 99283

== ENCOUNTER 2021-05-10 11:06 | Emergency (ER) | payer MEDICARE, OTHER ==
--- OUTSIDE RECORDS SUMMARY | 2021-05-10 11:11 | XMS REPORT | Continuity of Care Document ---
:1945 Author Organization [facility] t Address [address] [place] [address] Care Team Providers Name Role Phone Bradley [...] CHF, 00:00: Barber AFIB 00 Active 12/12/[address] [facility] CHF, AND Diagnosis Active 2020-12-12 M emoria AFIB 12-12 14:09:00 l CHF, AND 00:00: Leonardo n AFIB 00 Active 12/12/[address] [facility] ACUTE CHF Diagnosis Active 2020-12-22 Memoria 12-12 12:58:00 l ACUTE 00:00: Barber CHF 00 Active 12/12/[address] [facility] PULMNARY Diagnosis Active 2020-11-27 M emoria EMBOLI 11-17 22:01:00 l PULMNARY 00:00: Leonardo n EMBOLI 00 Active 11/17/[address] [facility] SOB, NO Diagnosis Active 2020-0 2020-11-17 Me moria APPETITE 1-18 15:35:00 l SOB, NO 00:00: [place] APPETITE 00 Active 11/17/[address] 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) (current) ity [...] , delivered by 12/23/2020 [facility] Myocardial Problem Resolve 2020-12-23 Memoria infarction d 22:21:36 l (disorder) Leonardo n Myocardial infarction (disorder) Resolved Problem 12/23/2020 [facility] Coronary Problem Active 2020-12-23 Mem oria arterioscl 22:21:36 l erosis Coronary Leonardo n (disorder) arterioscl erosis (disorder) Active Problem 12/23/2020 [facility] History of Problem Active 2020-12-23 M emoria - CVA 22:21:36 l (context-d History Her faust ependent of - CVA category) (context-d ependent category) Active Problem 12/23/2020 [facility] Hypertensi Problem Active 2020-12-23 M emoria ve 22:21:36 l disorder, [place] systemic Hypertensi arterial ve (disorder) disorder, systemic arterial (disorder) Active Problem 12/23/2020 [facility] Right Problem Active 2020-12-23 Memor ia carotid 22:21:36 l artery Right Barber stenosis carotid (disorder) artery stenosis (disorder) Active Problem 12/23/2020 [facility] Thrombotic Problem Active 2020-12-23 M emoria stroke 22:21:36 l (disorder) Leonardo n Thrombotic stroke (disorder) Active Problem 12/23/2020 [facility] OTHER Diagnosis Active 2020-11-27 Mem oria PULMONARY 22:01:00 l EMBOLISM OTHER Barber WITHOUT PULMONARY ACUTE C EMBOLISM WITHOUT ACUTE C Active [facility] HEART Diagnosis Active 2020-12-22 Mem oria FAILURE, 12:58:00 l UNSPECIFIE HEART Page nn D FAILURE, UNSPECIFIE D [facility] Active 2020-12-12 Memoria D ATRIAL 16:42:00 l FIBRILLATI Leonardo n ON UNSPECIFIE D ATRIAL FIBRILLATI ON [facility] SINGLE Diagnosis Active 2020-12-20 Mem oria LIVEBORN 10:16:00 l , SINGLE [place] DELIVERED LIVEBORN BY JOVANNI INFANT, DELIVERED BY JOVANNI Active [facility] Allergies, Adverse Reactions, Alerts Allergy Allergy Status Severity Reaction(s) Onset Inactive Treating Comm ents Source Name Type Date Date Clinician No Known No Known Active Memori a Medicati Medicati l on on [place] Allergie Allergie s s Family History Family [...] intake 2017-12-07 2017-12-07 Current drinker [place] [facility] 00:00:00 00:00:00 of alcohol (finding) Sex [birth year] [place] ethodist 00:00:00 00:00:00 Smoking Status Start Date Stop Date Source Social History 2020-12-12 23:57:56 2020-12-12 23:57:[address] [facility] Medications Ordered Filled Start Stop Current Ordering Indication Dosage Frequency Signature Comments Components Source Medication Medication Date Date Medication? Clinician (SIG) Name Name metOLazone metOLazone Yes BENNET QD TAKE 1 Univers 2.5 MG Oral 2.5 MG Oral 2-26 MARYSOL TABLET ity of Tablet Tablet 00:00: M.D. 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, Height, 75.727, kg, 12/12/20 17:48:00 ACOUSTICS TEACHER, Weight rivaroxaban Yes 20 mg = 2 [...] kg, Priority: STAT, Start date: 12/18/20 14:33:00 ACOUSTICS TEACHER, Stop date: 12/18/20 14:33:00 ACOUSTICS TEACHER, 0 Heparin 80 No Route: Memor ia unit/kg 2-18 IVP, PRN, l Bolus 20:33: 6,100 Barber (Heparin 00 unit, 6.1 Dosing mL, Drug Weight) form: INJ, PRN, Heparin Protocol, Start date: 12/18/20 14:33:00 ACOUSTICS TEACHER Stop date: 01/17/21 15:32:00 CDT, 30 day, 0 Heparin 40 No Route: Memor ia unit/kg 2-18 IVP, PRN, l Bolus 20:33: 3,000 Barber (Heparin 00 unit, 3 Dosing mL, Drug Weight) form: INJ, PRN, Heparin Protocol, Start date: 12/18/20 14:33:00 ACOUSTICS TEACHER Stop date: 01/17/21 15:32:00 CDT, 30 day, 0 heparin No Notes: Memoria additive 2-18 Total l 25,000 unit 20:33: Concentrat [place] [18 00 ion = 50 unit/kg/hr] unit/ [...] human 25% 2-17 #: l intravenous 22:27: Barber solution 00 ___ Mfg: (Same as: Plasbumin- 25) "blood product derivative " WASTE: F/P - Red; E -Red MEDICATION WASTE Product Size: 25 gm Product Wasted: ___ gm Bumex No Notes: Memoria 2-17 (Same As: l 19:00: Bumex) Barber 00 zolpidem No Notes: Memoria 2-16 (Same As: l 03:00: Ambien) [place] 00 Metoprolol No Notes: Memor ia Succinate 2-15 (Same as: l ER 50 mg 15:00: Toprol XL) Her faust oral 00 May split tablet, tab, but extended do not release crush. Magnesium No Notes: Memori a Sulfate 2-15 WASTE: F/P l 14:15: - Sink; E [place] 00 - Municipal Trash Bin Trazodone No [...] s with feeding tube less than 14 Burmese (Dobhoff, J-tube etc) and pediatric and patients. Trazodone No Notes: Memori a Hydrochlori 2-14 (Same As: l de 50 MG 03:00: Desyrel) Page nn Oral Tablet 00 Amiodarone No Notes: Memor ia 2-13 (Same as: l 23:00: Cordarone) Barber 00 Heparin 80 No Route: Memor ia unit/kg 2-13 IVP, PRN, l Bolus 16:33: 6,100 [place] (Heparin 00 unit, 6.1 Dosing mL, Drug Weight) form: INJ, PRN, Heparin Protocol, Start date: 12/13/20 10:33:00 ACOUSTICS TEACHER Stop date: 01/12/21 11:32:00 CDT, 30 day, 0 Heparin 40 No Route: Memor ia unit/kg 2-13 IVP, PRN, l Bolus 16:33: 3,000 [place] (Heparin 00 unit, 3 Dosing mL, Drug Weight) form: INJ, PRN, Heparin Protocol, Start date: 12/13/20 10:33:00 ACOUSTICS TEACHER Stop date: 01/12/21 11:32:00 CDT, 30 day, 0 heparin No Notes: Memoria additive 2-13 Total l 25,000 unit 16:33: Concentrat Barber [18 00 ion = 50 unit/kg/hr] unit/ ml + Premix Total Diluent volume = Sodium 500 ml Chloride Send Med 0.45% 500 Request 2 mL hours prior to next bag Aspirin 81 No Notes: Memor ia MG Chewable 2-13 Take with l Tablet 15:00: food. [place] 00 Finasteride No Notes: Abisai obdulio 2-13 [...] s with feeding tube less than 14 Burmese (Dobhoff, J-tube etc) and pediatric and patients. 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, Height, 74, kg, 11/17/20 14:04:00 ACOUSTICS TEACHER, Weight rivaroxaban Yes =15 Memori a 20 MG Oral 1-24 mL/min, l Tablet 18:51: 182.88Barber [Xarelto] 00 cm, 11/17/20 14:04:00 ACOUSTICS TEACHER, Height, 74, kg, 11/17/20 14:04:00 ACOUSTICS TEACHER, Weight AMIODarone Yes 200 mg = 1 M emoria 200 mg oral 1-24 tab, PO, l tablet 18:50: BID, # 60 Leonardo n 00 tab, 0 Refill(s), Pharmacy: [facility], 182.88, cm, 11/17/20 14:04:00 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 TEACHER, Height, 74, kg, 11/17/20 14:04:00 ACOUSTICS TEACHER, Weight Furosemide Yes 20 mg = 1 Me moria 20 MG Oral 1-24 tab, PO, l Tablet 18:50: Daily, # [place] 00 30 tab, 0 Refill(s), Pharmacy: [facility], 182.88, cm, 11/17/20 14:04:00 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 TEACHER, Height, 74, kg, 11/17/20 14:04:00 ACOUSTICS TEACHER, Weight lisinopril Yes 2.5 mg = 1 M emoria 2.5 mg oral 1-24 tab, PO, l tablet 18:50: Daily, # [place] 00 30 tab, 0 Refill(s), Pharmacy: [facility], 182.88, cm, 11/17/20 14:04:00 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 TEACHER, Height, 74, kg, 11/17/20 14:04:00 ACOUSTICS TEACHER, Weight Metoprolol Yes 50 mg = 1 Me moria Succinate 1-24 tab, PO, l ER 50 mg 18:50: Daily, # Page nn oral 00 30 tab, 0 tablet, Refill(s), extended Pharmacy: [facility], 182.88, cm, 11/17/20 14:04:00 ACOUSTICS TEACHER, Height, 74, kg, 11/17/20 14:04:00 ACOUSTICS TEACHER, Weight Furosemide No Notes: Memor ia 20 [...] Total Volume: 500, Start date: 11/20/20 10:49:00 ACOUSTICS TEACHER, Duration: 1 doses or times, Stop date: 11/20/20 14:48:00 ACOUSTICS TEACHER, 1.94, m2, 0 Cathflo No Notes: do Memor ia Activase 2 11-20 not load l mg 07:48: in pyxis [place] injection 6 00 mg + Sodium Chloride 0.9% IV 94 mL Ativan No Notes: Memoria 1-20 (Same as: l 23:21: Ativan) normal No 250 mL, Memoria saline 0.9% 1-20 250 ml/hr, l (Bolus) IV 22:19: Infuse Page nn Over: 1 hr, Route: IV, 250, Drug form: INJ, ONCE, Priority: STAT, Dosing Weight 74 kg, Start date: 11/19/20 16:19:00 ACOUSTICS TEACHER, Stop date: 11/19/20 16:19:00 ACOUSTICS TEACHER, 0 Metoprolol No Notes: Memor ia Succinate 20 (Same as: l ER 50 mg 22:18: Toprol XL) Her faust oral 00 May split tablet, tab, but extended do not release crush. heparin No Notes: Memoria additive 1-20 Total l 25,000 unit 19:50: Concentrat [place] [250 00 ion = 50 unit/hr] + unit/ ml Premix Total Diluent volume = Sodium 500 ml Chloride Send Med 0.45% 500 Request 2 mL hours prior to next bag Sodium No 1,000 mL, Memori a Chloride 1-20 Rate: 35 l 0.9% IV 19:50: ml/hr, [place] 1,000 mL 00 Infuse over: 28.6 hr, Route: IV, Dosing Weight 74 kg, Total Volume: 1,000, Start date: 11/19/20 13:50:00 ACOUSTICS TEACHER, Duration: 2 day, Stop date: 11/21/20 13:49:00 ACOUSTICS TEACHER, 1.94, m2, 0 Cathflo No Notes: do Memor ia Activase 2 1-20 not load l mg 19:50: in pyxis Barber injection 6 00 mg + Sodium Chloride 0.9% IV 94 mL Metoprolol No Notes: Memor ia Succinate 1-20 (Same as: l ER 50 mg 15:00: Toprol XL) Her faust oral 00 May split tablet, tab, but extended do not release crush. Sodium No 250 mL, Memoria Chloride 1-20 Rate: To l 0.9% 14:29: prime line [place]rose (titrate) 00 and flush 250 mL remaining blood products., Dosing Weight 74, kg, Route: IV, Total Volume: 250, Start Date: 11/19/20 8:29:00 ACOUSTICS TEACHER, Duration: 1 day, Stop date: 11/20/20 8:28:00 ACOUSTICS TEACHER, Replace Every: 24 hr, 0 atorvastati No Notes: Abisai obdulio n 1-20 (Same As: l 03:00: Lipitor) [place] Amlodipine No Notes: Memor ia 1-19 (Same as: l 15:00: Norvasc) Barber Plavix No Notes: Memoria 1-19 (Same As: l 15:00: Plavix) [place] Finasteride No Notes: Abisai obdulio 1-19 (Same as: l 15:00: Proscar) [place] "Do Not Crush" Women of childbeari ng age should not touch or handle broken tablets Hazardous Drug Group 3:Reproduc tive risk Hazardous Drug -- Refer to safe handling procedure PPE Matrix Hydrochloro No 1 tab, Abisai obdulio thiazide 25 11-18 Route: PO, l MG / 15:00: Drug Form: [place] Lisinopril 00 TAB, 20 MG Oral Dosing Tablet Weight 74, kg, Daily, Start date: 11/18/20 9:00:00 ACOUSTICS TEACHER, Duration: 30 day, Stop date: 12/17/20 9:00:00 ACOUSTICS TEACHER tamsulosin No Notes: Memor ia 11-18 (Same As: l 15:00: Flomax) Barber 00 "Do Not Crush" Levaquin No Notes: Do Abisai obdulio 11-18 not give l 14:00: w/antacids , dairy pdt & minerals Take 1 hr before or 2 hr after dairy pdt (Same as:Levaqui n) Levaquin No Notes: Memoria 11-18 (Same l 08:00: as:Levaqui [place] 00 n) Saline No Notes: Memoria Flush 0.9% 11-18 Same as: l 03:00: BD [place] 00 Posiflush Sterile AMIODarone No 2 mg/ml. [...] moria 11-18 "Recommend l 02:47: ation: Use Barber 00 an in-line filter during administra tion for continuous infusions to reduce the incidence of phlebitis" (Same as Codarone) MEDICATION WASTE Product Size: 150 mg Product Wasted: ___ mg Acetaminoph No Notes: Do M emoria en 11-18 not exceed l 02:45: 4 gm/day. [place] 00 (Same as: Tylenol) Ondansetron No Notes: Abisai obdulio 11-18 (Same as: l 02:45: Zofran [place] 00 ODT) Saline No Notes: Memoria Flush 0.9% 11-18 Same as: l 02:45: BD Barber 00 Posiflush Sterile Heparin - No Route: Memori a one time - IVP, Drug l bolus for 02:35: form: INJ, He rmann DVT/PE 00 ONCE, Dosing Weight 74, kg, Priority: STAT, Start date: 11/17/20 20:35:00 ACOUSTICS TEACHER, Stop date: 11/17/20 20:35:00 ACOUSTICS TEACHER, 0 Heparin 80 No Route: Memor ia unit/kg 11-18 IVP, PRN, l Bolus 02:35: 5,900 [place] (Heparin 00 unit, 5.9 Dosing mL, Drug Weight) form: INJ, PRN, Heparin Protocol, Start date: 11/17/20 20:35:00 ACOUSTICS TEACHER Stop date: 12/17/20 20:34:00 ACOUSTICS TEACHER, 30 day, 0 Heparin 40 No Route: Memor ia unit/kg 11-18 IVP, PRN, l Bolus 02:35: 3,000 Barber (Heparin 00 unit, 3 Dosing mL, Drug Weight) form: INJ, PRN, Heparin Protocol, Start date: 11/17/20 20:35:00 ACOUSTICS TEACHER Stop date: 12/17/20 20:34:00 ACOUSTICS TEACHER, 30 day, 0 heparin No Notes: Memoria additive 11-18 Total l 18085 unit 02:35: Concentrat H ermann [18 00 ion = 50 unit/kg/hr] unit/ ml + Premix Total Diluent volume = Sodium 500 ml Chloride Send Med 0.45% 500 Request 2 mL hours prior to next bag Digoxin No 0.5 mg, Memoria 11-18 Route: l 02:34: IVP, ONCE, [place] 00 Dosing Weight 74, kg, Priority: STAT, Start date: 11/17/20 20:34:00 ACOUSTICS TEACHER, Stop date: 11/17/20 20:34:00 ACOUSTICS TEACHER Ceftriaxone No Notes: Abisai obdulio 11-18 (Same As: l 00:32: Rocephin). [place] 00 Use with 100 mL NS and [...] [Plavix] 00 90 tab, 2 Refill(s), Pharmacy: [facility], 177.8, cm, 08/15/20 10:35:00 CDT, Height, 80, kg, 08/15/20 10:35:00 CDT, Weight atorvastati Yes 20 mg = 1 M emoria n 20 mg 7-15 tab, PO, l oral tablet 15:23: Bedtime, # Barber 00 90 tab, 2 Refill(s), Pharmacy: [facility], 180.34, cm, 01/04/20 12:00:00 ACOUSTICS TEACHER, Height, 90, kg, 01/04/20 12:00:00 ACOUSTICS TEACHER, Weight atorvastati 2018-10 Yes 20 mg = 1 M emoria n 20 mg 0-11 tab, PO, l oral tablet 14:57: Bedtime, # Barber 46 90 tab, 2 Refill(s), Pharmacy: [facility] amLODIPine 2016-10 Yes 5mg [...] Take 20-25 Ruiz hydrochloro 2-20 tablets by [facility] thiazide 00:00: mouth st (PRINZIDE,Z 00 daily. ESTORETIC) 20-25 mg per tablet atorvastati 2017- Yes 10mg Take 10 mg Ruiz n (LIPITOR) 2-12 by mouth Meth sergio 10 MG 00:00: daily. st tablet 00 Zolpidem Zolpidem Yes [place] [address] Tartrate Tartrate Bajwa at bedtime [facility] Amiodarone Amiodarone Yes BENNET Q0.5D [...] Comments Source Temperature Oral 2020-12-21 98.0 F [facility] rmann (F) 14:00:00 Heart Rate 2020[facility]21 [facility] Respitory Rate 2020-12-21 [facility] elizabeth 14:00:00 Systolic (mm Hg) 2020-12-21 [facility] rmann 14:00:00 Diastolic (mm Hg) 2020-12-21 [facility] ermann 14:00:00 Respitory Rate 2020-12-21 [facility] elizabeth 13:31:00 Temperature Oral 2020-12-21 98.6 F [facility] rmann (F) 10:00:00 Heart Rate 2020-12-21 [facility] Leonardo n 10:00:00 Respitory Rate 2020-12-21 [facility] elizabeth 10:00:00 Systolic (mm Hg) 2020-12-21 [facility] 10:00:00 Diastolic (mm Hg) 2020-12-21 [facility] ermann 10:00:00 Temperature Oral 2020-12-21 97.8 F [facility] Jeyson rmann (F) 06:00:00 Heart Rate 2020-12-21 [facility] Leonardo n 06:00:00 Systolic (mm Hg) 2020-12-21 [facility] rmann 06:00:00 Diastolic (mm Hg) 2020-12-21 [facility] ermann 06:00:00 Height 2020-12-18 180.34 cm [facility] Leonardo n 11:48:00 Height 2020-12-12 180.34 cm [facility] Leonardo n 23:48:00 Weight 2020-12-12 [facility] Leonardo n 23:48:00 BMI Calculated 2020-12-12 [facility] elizabeth 23:48:00 Systolic blood 2020-12-12 113 mm[Hg] Location: [facility] 13:14:00 Position: [place] Physician s Sitting Diastolic blood 2020-12-12 75 mm[Hg] Location: [facility] 13:14:00 Position: [place] Physician s Sitting Body height 2020-12-12 72 [in_us] [facility] 13:14:00 [place] [facility] s Weight 2020-12-12 169 [lb_av] [facility] 13:14:00 [place] [facility] s Body mass index 2020-12-12 22.92 kg/m2 [facility] (BMI) [Ratio] 13:14:00 [place] [facility] Rate 2020-12-12 106 /min Location: L [facility] 13:14:00 Radial; [place] [facility] Quality: Normal Temperature Oral 2020-11-23 97.9 F [facility] Jeyson rmann (F) 18:00:00 Heart Rate 2020-11-23 [...] [QL] B TYPE NATRIURETIC 2020-12-26 00:00[facility]00 [facility] ([facility] Physicians [QL] BASIC METABOLIC 2020-12-26 00:00:00 [facility] PANEL W/EGFR Physicians [QL] CBC (INCLUDES 2020-12-26 00:00:00 [facility] DIFF/PLT) Physicians [QL] MAGNESIUM 2020-12-26 00:00:00 [facility] Physicians Plan of Care Planned Activity Planned Date Details Comments Source Future Scheduled 2021-05-31 INFLUENZA VACCINE [place] [facility] 00:00:00 [code = INFLUENZA VACCINE] Future Scheduled 2010 65+ PNEUMOCOCCAL [facility] 00:00:00 VACCINE (1 of 1 - PPSV23) [code = 65+ PNEUMOCOCCAL VACCINE (1 of 1 - PPSV23)] Future Scheduled 1995 COLONOSCOPY SCREENING Ho joaquín [facility] 00:00:00 [code = COLONOSCOPY SCREENING] Future Scheduled 1995 SHINGLES VACCINES (#1) H jorge luis [facility] 00:00:00 [code = SHINGLES VACCINES (#1)] Future Scheduled 1957 COVID-19 VACCINE (1) Crisitna hagan [facility] 00:00:00 [code = COVID-19 VACCINE (1)] Encounters Start End Encounter Admission Attending Care Care Encounter Source Date/Time Date/Time Type Type Clinicians Facility Department ID 2020-12-12 Inpatient U [facility] MED [id number] [facility] L 16:32:00 2021-04-15 2021-04-15 Outpatient [facility] [id number] [facility] 2021-03-31 2021-03-31 Outpatient [facility] [id number] [facility] 2021-03-13 2021-03-13 Outpatient [facility] [id number] [facility] 2021-02-24 2021-02-24 Outpatient [facility] [id number] [facility] 2021-02-12 2021-02-12 Outpatient [facility] [id number] [facility] 2021-02-05 2021-02-05 Outpatient [facility] [id number] [facility] 2021-01-08 2021-01-08 Outpatient [facility] [id number] [facility] 2020-12-31 2020-12-31 Outpatient [facility] [id number] [facility] 2020-12-12 2020-12-21 Outpatient Greg, [place] [id number] 16:32:00 13:10:00 [place]las[place]anmi [address] 2020-12-12 2020-12-21 Outpatient Greg, [facility]PL [facility]PL [id number] 16:32:00 13:10:00 Olasunkanmi 43 W 2020-12-12 2020-12-12 AppointKENTON Dsouza [id number] [facility] 13:15:00 13:15:00 t; NIRAV GREGG ity of Alfonso GASTELUM M.D. Physici ans 2020-12-10 2020-12-10 Outpatient [facility] [id number] [facility] 2020-12-09 2020-12-09 Outpatient [facility] [id number] [facility] 2020-12-08 2020-12-08 Outpatient [facility] [id number] [facility] 2020-12-08 2020-12-08 Outpatient [facility] [id number] [facility] 2020-12-02 2020-12-02 [facility] [id number] [facility] 2020-11-25 2020-11-25 [facility] [id number] [facility] 2020-11-17 2020-11-23 Outpatient Rebeccarobywinifred, [facility]PL MHPL [id number] 14:02:47 14:45:00 Simi 00 2020-11-17 2020-11-23 Outpatient Mayenkar, [facility] [id number] 14:02:47 14:45:00 Simi 00 2020-11-21 2020-11-21 [facility] [id number] [facility] 2020-11-17 2020-11-17 Inpatient E [facility] MED [id number] [facility] 20:45:00 14:02:00 2020-11-04 2020-11-04 Outpatient [facility] [id number] [facility] 2020-10-29 2020-10-29 Outpatient [facility] [id number] [facility] 2020-10-20 2020-10-20 Outpatient [facility] [id number] [facility] 2020-10-20 2020-10-20 Outpatient [facility] [id number] [facility] 2020-10-06 2020-10-06 Outpatient [facility] [id number] [facility] 2020-10-01 2020-10-01 Outpatient [facility] [id number] [facility] 2020-08-18 2020-08-18 Outpatient [facility] [id number] [facility] 2020-08-15 2020-08-15 [id number] 10:30:00 23:59:59 Terrance 10 Keyshawn 2020-08-15 2020-08-15 [facility] [id number] 10:30:00 10:30:00 Terrance 09 Keyshawn 2020-08-11 2020-08-11 Outpatient [facility] [id number] [facility] 2020-06-13 2020-06-13 [facility] [id number] 14:20:00 14:20:00 t [employer] s - Drive [facility] Medicine Medicine Outpati ent Clinics 2020-06-11 2020-06-11 [facility] [id number] 10:45:00 10:45:00 t [place] [employer] s - Drive [facility] Family Medicine l Medicine Outpati ent Clinics 2020-03-27 2020-03-27 [facility] [id number] 10:35:00 10:35:00 t [place] [employer]leypalmerflatt s - Drive [facility] Medicine l Medicine Outpati ent Clinics 2020-03-10 2020-03-10 [facility] [id number] 08:00:00 08:00:[address] Luke s - Drive [facility] Medicine Outpati ent Clinics 2020-03-03 2020-03-03 [facility] [id number] 10:15:00 10:15:[address] [employer] s - Drive [facility] l Medicine Outpati ent Clinics 2020-02-26 2020-02-26 [facility] [id number] 12:19:00 12:19:00 t [place] [employer] s - Drive [facility] Medicine Outpati ent Clinics 2020-01-14 2020-01-14 [facility] [id number] [facility] 10:45:00 10:45:00 t [place] [employer] s - Drive [facility] Medicine Outpati ent Clinics 2020-01-04 2020-01-04 Outpatient NOE Garza [facility] [id number] 11:45:00 23:59:59 Terrance 08 Keyshawn 2020-01-03 2020-01-03 [facility] [id number] [facility] 16:51:00 16:51:00 t [place] [employer] [employer] s - Drive [facility] Outpat[facility] Clinics 2019-12-25 2019-12-25 [facility] [id number] 08:20:00 08:20:00 t [place] [employer] [employer] s - Drive [facility] Medicine Outpat[facility] ent Clinics 2019-12-17 2019-12-17 [facility] [id number] 11:00:00 11:00:00 t [place] [employer] [employer] s - Drive [facility] Medicine Outpati ent Clinics 2019-11-23 2019-11-23 [id number] 10:00:00 23:59:59 Terrance 07 Keyshawn 2019-11-08 2019-11-08 [facility] [id number] 15:00:00 15:00:00 t [place] [employer] [employer] s - Drive [facility] Medicine Outpati ent Clinics 2019-11-06 2019-11-06 [id number] 09:45:00 09:45:00 Terrance Keyshawn 2019-09-05 2019-09-[address] [facility] [id number] 14:23:36 23:59:59 2019-08-08 2019-08-08 [id number] 13:00:00 13:00:00 Terrance 05 Keyshawn 2018-08-30 2018-08-30 Outpatient [facility] [id number] 13:30:00 23:59:59 Terrance Keyshawn Results Test Description [...] {x10E3/uL} 0.0-0.2 Immature Granulocytes (test code = 92913-2) 0 % Not Estab. Immature Grans (Abs) (test code = 23459-0) 0.0 {x10E3/uL} 0.0-0.1 NRBC (test code = 79705-0) See Comment Hematology Comments: (test code = 63836-5) See Comment [facility] Physicians[QL] BASIC METABOLIC PANEL W/QOZN6791-21-77 14:00:00 Test Item Value Reference Range Interpretation Comments Glucose; Above High Threshold 101 mg/dL 65-99 (test code = 2345-7) BUN (test code = 3094-0) 19 mg/dL 8-27 Creatinine (test code = 2160-0) 1.15 mg/dL 0.76-1.27 eGFR If NonAfrcn Am (test code 62 mL/min/1.7 >59 = 91309-6) eGFR If Africn Am (test code = 72 mL/min/1.7 >59 08483-0) BUN/Creatinine Ratio (test code 17 -24 = 3097-3) Sodium, Serum (test code = 137 mmol/L 530-119 1911-2) Potassium (test code = 2823-3) 3.8 mmol/L 3.5-5.2 Chloride; Below Low Threshold 94 mmol/L 96-106 (test code = 2075-0) Carbon Dioxide, Total (test 28 mmol/L 20-29 code = 8-9) Calcium (test code = 77903-8) 8.7 mg/dL 8.6-10.2 [facility][QL] AMXIMEZOG2988-15-93 14:00:00 Test Item Value Reference Range Interpretation Comments Magnesium, Serum (test code = 1.8 mg/dL 1.6-2.3 87070-0) [facility] Physicians[QL] B TYPE NATRIURETIC PEPTIDE (BNP)2020-12-31 14:00:00 Test Item Value Reference Range Interpretation Comments B-Type Natriuretic Peptide; 1600.1 pg/mL 0.0-100.0 Above High Threshold (test code = 98320-8) [facility] PhysiciansCHEM LFXLO6973-17-87 16:05:0098[facility] CHEM KSCRM2186-72-98 16:05:0037[facility]annCHEM NBSFP0779-29-02 16:05:001.65 [facility]annCHE[facility] QOAFE3029-92-19 16:05:68150Kjrgrjal HermannCHEM PANEL 2020-12-21 16:05:003.5[facility]annCHEM MABFV0540-13-85 16:05:0096[facility]annCHEM BZPDC4894-82-80 16:05:0027[facility]annCHEM EXNIU7443-50-90 16:05:008.6[facility]annCHEM ROCYC5034-25-60 16:05:0011.5[facility]annCHEM IIZLO6615-46-17 16:05:0040[facility]annCHEM HVDMW5221-37-80 11:32:82184 [facility]annCHEM KSYJE1751-53-35 11:32:0045[facility]annCHEM PANEL 2020-12-20 11:32:001.99[facility] HermannCHEM HTTAL3270-41-62 11:32:06650Cctvhlov HermannCHEM UAAGN2259-84-74 11:32:003.7[facility]annCHEM ZCXOV2633-97-03 11:32:0096[facility]annCHEM WPQLT8169-33-13 11:32:0025[facility]annCHEM RJCFS5599-59-95 11:32:008.5[facility] HermannCHEM RBSXH1345-32-40 11:32:005.9 [facility]annCHEM BFFVJ2503-78-40 11:32:002.8[facility] HermannCHEM PANEL 2020-12-20 11:32:93687Bqegzqja HermannCHEM WASFM1374-87-43 11:32:53583Wxmbgtik HermannCHEM OKELA2387-39-03 11:32:0097[facility] HermannCHEM ZZTBV7717-21-05 11:32:001.6[facility] HermannCHEM VOWZE1621-74-71 11:32:0012.7[facility] HermannCHEM KWPWE8152-72-69 11:32:00 Test Item Value Reference Range Interpretation Comments B/C Ratio (test code = B/C Ratio) 23 1 6-25 [facility]annCHEM CFKMM4793-38-07 11:32:003.1[facility] HermannCHEM PANEL 2020-12-20 11:32:00 Test Item Value Reference Range Interpretation Comments A/G Ratio (test code = A/G Ratio) 0.9 1 0.7-1.6 [facility]annCHEM BESSL3960-13-50 11:32:0032[facility] HermannCHEM PANEL 2020-12-20 11:32:002.4[facility] HermannCHEM CMYKH4076-95-30 11:32:003.6[facility] ZsdyjxwSDJXRHMAFZ7439-56-72 11:32:0067.5[facility] XecolmkRURXMOQKJK7940-79-58 11:32:0021.0[facility] IsotpocIZMCBPSTOF6556-11-05 11:32:007.2[facility] BPDAHZDYCX4473-01-48 11:32:003.4[facility] YahgpeyHKJRULNQCO1696-29-98 11:32:000.9 [facility] AfneaufIRXIXKROXE2311-85-98 11:32:005.5[facility] HermannHEMATOLOGY 2020-12-20 11:32:001.7[facility] OomajetRFTNUKVFJC6576-44-65 11:32:000.6[facility] SpxqbkhNZHDCYPQUV2566-95-87 11:32:000.3[facility] OqdwurqXFWCHGYIRJ1589-55-01 11:32:000.1[facility] PopbqagXAPXTHQGOY5057-06-58 11:32:008.1[facility] URKLVWQELR3980-13-55 11:32:004.13[facility] SahtlpcBSOMVGAXWO6199-51-50 11:32:00 12.3[facility] GxgthogCEHMVBJREU9370-39-04 11:32:0037.7[facility] HermannHEMATOLOGY 2020-12-20 11:32:0091.2[facility] YhoxdqfYHJAJINKPJ9240-69-14 11:32:00 Test Item Value Reference Range Interpretation Comments MCH (test code = MCH) 29.8 pg 27.0-31.0 [facility] CenterNdpuatoBTVBVVWSWP4042-94-19 11:32:0032.7[facility] HermannHEMATOLOGY 2020-12-20 11:32:0016.3[facility] QqudgemAFSDVUPQTJ8665-55-32 11:32:93104Bsvphcsz FiximquWLCJAYUTQQ6360-52-62 11:32:009.3[facility] IhvnspbSKIYEJDWVE7116-81-21 11:32:00 Test Item Value Reference Range Interpretation Comments PT (test code = PT) 16.8 s 12.0-14.7 [facility] CenterEfpevwvHTORBJDDSE6596-33-17 11:32:00 Test Item Value Reference Range Interpretation Comments INR (test code = INR) 1.39 1 0.85-1.17 [facility] CenterVgzstspVTDKTEJLDU1646-96-21 11:32:00 Test Item Value Reference Range Interpretation Comments PTT (test code = PTT) 75.0 s 22.9-35.8 [facility] CenterDrccztnQDNBYJPZUH0025-38-60 00:10:00 Test Item Value Reference Range Interpretation Comments PT (test code = PT) 16.8 s 12.0-14.7 [facility] CenterLncrximSOQZLZMKOV3996-34-96 00:10:00 Test Item Value Reference Range Interpretation Comments INR (test code = INR) 1.39 1 0.85-1.17 [facility] CenterOoyjbraFXDLHIWPMM7136-43-11 00:10:00 Test Item Value Reference Range Interpretation Comments PTT (test code = PTT) 72.6 s 22.9-35.8 [facility] HermannCHEM GBKTA7610-33-59 17:53:002.5[facility] HermannCHEM PANEL 2020-12-19 17:53:004.3[facility] HermannCHEM ZJHPT3206-01-73 17:53:47737Broutnon HermannCHEM GLFTA1903-40-14 17:53:0047[facility] HermannCHEM YGWZC6832-93-75 17:53:002.28[facility] HermannCHEM XKPXC6133-66-43 17:53:32232Prdzudvh HermannCHEM FUTZH4960-50-75 17:53:003.9[facility] HermannCHEM AQDSR3855-13-92 17:53:0093 [facility]annCHEM KUHKN8583-08-07 17:53:0024[facility] HermannCHEM PANEL 2020-12-19 17:53:008.8[facility] HermannCHEM TCSTY5963-83-48 17:53:006.5[facility] HermannCHEM DCHEG6447-36-15 17:53:003.0[facility] HermannCHEM HSEEO7405-76-76 17:53:30213Kaitsplq HermannCHEM LUDYR5924-35-14 17:53:16015Lfknnwjs HermannCHEM OLPDO8001-49-08 17:53:06990Gdarfnph HermannCHEM MHKNB5737-69-28 17:53:002.0 [facility]annCHEM GJBKL1925-15-13 17:53:0013.9[facility] HermannCHEM PANEL 2020-12-19 17:53:00 Test Item Value Reference Range Interpretation Comments B/C Ratio (test code = B/C Ratio) 21 1 6-25 [facility]annCHEM POYOE8771-97-69 17:53:003.5[facility] HermannCHEM PANEL 2020-12-19 17:53:00 Test Item Value Reference Range Interpretation Comments A/G Ratio (test code = A/G Ratio) 0.9 1 0.7-1.6 [facility]annCHEM MZZZB4982-20-90 17:53:0027[facility] HermannHEMATOLOGY 2020-12-19 17:53:008.6[facility] TgetnwiIQETDMGOWL1282-26-34 17:53:004.22[facility] JmbefihBGFEATJDXV4228-07-51 17:53:0012.4[facility] KinlikdDXFMFLJBEE8512-77-80 17:53:0038.8[facility] JzmolvhLZJFKXOVWN9593-86-61 17:53:0091.9[facility] ZUVLQWUMJS1534-65-56 17:53:00 Test Item Value Reference Range Interpretation Comments MCH (test code = MCH) 29.5 pg 27.0-31.0 [facility] BbqboyoKGARFRDKXS9537-33-91 17:53:0032.1[facility] HermannHEMATOLOGY 2020-12-19 17:53:0016.4[facility] MnbhebbEWBSILYHOC8428-77-95 17:53:51335Mwoafafw VkrvujrOLKPOCRGIJ2141-18-07 17:53:009.5[facility] JachohqKHVWIZZJUC7430-32-56 17:53:00 Test Item Value Reference Range Interpretation Comments PTT (test code = PTT) 82.6 s 22.9-35.8 [facility] GqtuzxiWBROVQCVOE5230-21-03 17:53:0068.7[facility] HermannHEMATOLOGY 2020-12-19 17:53:0021.3[facility] MydcyxsNXLNDDDDVR4560-09-20 17:53:007.5[facility] ObknnxaQXYFYQETHX0014-36-44 17:53:001.7[facility] WjtaywvOUHGKIIVQO3796-62-85 17:53:000.8[facility] LkalirnYHEZXXDLSN5702-33-29 17:53:005.9[facility] RZSZGFHCAO3192-88-53 17:53:001.8[facility] XlwpxrcKDQDUKISFQ7556-22-38 17:53:000.7 [facility] XlndvzmVGLUFWJBRR1746-89-94 17:53:000.2[facility] HermannHEMATOLOGY 2020-12-19 17:53:000.1[facility] DqwnjuwTUKVBBCKTA3193-81-78 21:49:00 Test Item Value Reference Range Interpretation Comments PT (test code = PT) 16.8 s 12.0-14.7 [facility] BezrkdxHKNDEODOZP3213-48-94 21:49:00 Test Item Value Reference Range Interpretation Comments INR (test code = INR) 1.39 1 0.85-1.17 [facility] JqyxugzPNEOGZBLYF2009-57-07 21:49:009.0[facility] HermannHEMATOLOGY 2020-12-18 21:49:004.16[facility] PjqdxerKJVHAJALVU5529-31-80 21:49:0012.8[facility] AxftxukHYYIDVLCIN1210-01-20 21:49:0038.2[facility] PciavcpYHWCVOXCDW0014-61-20 21:49:0091.8[facility] SwfxlocTHIEBDMAUP1030-96-67 21:49:00 Test Item Value Reference Range Interpretation Comments MCH (test code = MCH) 30.8 pg 27.0-31.0 [facility] GntatxfTRLYQYVHXS4644-10-24 21:49:0033.6[facility] HermannHEMATOLOGY 2020-12-18 21:49:0016.2[facility] UjycviiOWNFMHMVGI4588-54-11 21:49:19566Thnckdck VzzhssvLLBXDVLSLD9494-00-52 21:49:008.5[facility] UsqefqiMRKPDRNXHD3864-73-36 21:49:0073.1[facility] BcwhrunKLUOKWVQUB1289-44-63 21:49:0017.4[facility] HNCAFLFRTS7612-15-38 21:49:007.3[facility] RcifixpBJPQRDSFJW3327-71-44 21:49:001.6 [facility] PpeuldpKTSQNVUZUZ2490-73-11 21:49:000.6[facility] HermannHEMATOLOGY 2020-12-18 21:49:006.6[facility] KxpbfzqSPUDZQUKZS9854-97-16 21:49:001.6[facility] VugvlwzDFTCQMKBMK8292-97-50 21:49:000.7[facility] UzokozeLGKTKBIWKY7116-57-60 21:49:000.1[facility] RqdltiqSMHPDHJXRP0408-25-26 21:49:000.1[facility] HermannCHEM DYWIB9971-43-58 16:41:000.14[facility] HermannCHEM UMNFH2996-34-69 10:26:002.3 [facility] HermannCHEM WFAJF1339-02-38 10:26:005.0[facility] HermannBODY FLUIDS 2020-12-16 20:40:00Pleural (12/16/20 2:40 PM)[facility] HermannBODY FLUIDS 2020-12-16 20:40:001.1[facility] HermannBODY DSLITG1591-38-73 20:40:00Yellow (12/16/20 2:40 PM)[facility] HermannBODY RBLNNH3967-02-79 20:40:00Slight Cloudy (12/16/20 2:40 PM)[facility] HermannBODY QBZJSJ0583-66-58 20:40:10192Yrvewklt HermannBODY FFFIBH3738-00-11 20:40:32892Ijgqvlzc HermannBODY QOMQPX4030-45-50 20:40:00Pleural (12/16/20 2:40 PM)[facility]annBODY JRGDUV3936-95-96 20:40:00 39[facility] HermannBODY NRMEXL4409-44-60 20:40:0050[facility] HermannBODY FLUIDS 2020-12-16 20:40:0011[facility] HermannBODY YAHPSD6271-99-98 20:40:00Pleural (12/16/20 2:40 PM)[facility]annBODY SRNVPS6540-51-16 20:40:34572Nbricmdb HermannBODY SHFJYJ5114-39-61 20:40:00Pleural (12/16/20 2:40 PM)[facility] BODY XSGIGS2615-66-11 20:40:89670Wxfatwyy HermannBODY TMDTCC5363-48-42 20:40:00 Pleural (12/16/20 2:40 PM)[facility]annBODY YTPMZG2433-83-96 20:40:00<10 [facility]annBODY ZENEYW2675-56-44 20:40:00Pleural (12/16/20 2:40 PM)[facility]annBODY XHJFYW7082-17-09 20:40:00 Test Item Value Reference Range Interpretation Comments BODY FLUID, PH (test code = BODY 8.00 1 FLUID, PH) [facility]annBODY WLQWWX3165-62-57 20:40:00Pleural (12/16/20 2:40 PM)[facility]annBODY WTOIAI2164-12-98 20:40:002.2[facility] HermannBODY EATGRI5646-26-71 20:40:00Pleural (12/16/20 2:40 PM)[facility]annBODY HFPLIY7539-05-37 20:40:00 15[facility] VkfogytWZKSRROSRA7138-04-70 17:23:00Not Detected (12/16/20 11:23 AM) [facility]annCHEM JFATF4784-64-79 00:34:34001Ebdpmeja HermannCHEM PANEL 2020-12-15 00:34:006.8[facility] HermannCARDIAC ONVPHAP1574-33-98 14:33:945646 [facility]annCHEM SMWJF2993-20-83 09:02:00 Test Item Value Reference Range Interpretation Comments B/C Ratio (test code = B/C Ratio) 18 1 6-25 [facility]annCHEM LMXRR2374-34-57 09:02:002.9[facility] HermannCHEM PANEL 2020-12-13 09:02:003.7[facility] HermannCHEM QSDNP9736-99-11 09:02:00 Test Item Value Reference Range Interpretation Comments A/G Ratio (test code = A/G Ratio) 0.8 1 0.7-1.6 [facility]annCHEM CFMEF3823-39-13 09:02:0048[facility] HermannCHEM PANEL 2020-12-13 09:02:0037[facility] HermannCHEM DZOYX2608-22-12 09:02:0094[facility] HermannCHEM HQQDP8881-32-15 09:02:001.3[facility] HermannCARDIAC DAGNLWQ0855-72-34 05:01:000.04[facility] HermannCARDIAC VWKCGRP0789-19-76 00:03:000.03[facility] HermannCHEM NFJWY9392-02-36 00:03:000.5[facility] HermannCHEM JQQZZ8270-25-36 00:03:001.0[facility][QL] BASIC METABOLIC PANEL W/MMBH9930-90-01 09:07:00 Test Item Value Reference Range Interpretation Comments Glucose; Above High Threshold 101 mg/dL 65-99 (test code = 2345-7) BUN (test code = 3094-0) 17 mg/dL 8-27 Creatinine; Above High 1.49 mg/dL 0.76-1.27 Threshold (test code = 2160-0) eGFR If NonAfrcn Am; Below Low 45 mL/min/1.7 >59 Threshold (test code = 35227-3) eGFR If Africn Am; Below Low 52 mL/min/1.7 >59 Threshold (test code = 17845-9) BUN/Creatinine Ratio (test code 08-23 = 3097-3) Sodium, Serum (test code = 134 mmol/L 717-103 0463-2) Potassium; Below Low Threshold 3.2 mmol/L 3.5-5.2 (test code = 2823-3) Chloride; Below Low Threshold 93 mmol/L 96-106 (test code = 2075-0) Carbon Dioxide, Total (test 25 mmol/L code = 8-9) Calcium (test code = 53902-0) 9.1 mg/dL 8.6-10.2 [facility][QL] KTXEWFFPD6963-02-65 09:07:00 Test Item Value Reference Range Interpretation Comments Magnesium, Serum (test code = 1.7 mg/dL 1.6-2.3 30799-4) [facility][QL] B TYPE NATRIURETIC PEPTIDE (BNP)2020-12-11 09:07:00 Test Item Value Reference Range Interpretation Comments B-Type Natriuretic Peptide; 1066.2 pg/mL 0.0-100.0 Above High Threshold (test code = 09501-4) [facility][QL] B TYPE NATRIURETIC PEPTIDE (BNP)2020-12-04 08:28:00 Test Item Value Reference Range Interpretation Comments B-Type Natriuretic Peptide; 1259.7 pg/mL 0.0-100.0 Above High Threshold (test code = 07742-0) [facility] PhysiciansCHEM JCQME1924-93-33 09:42:82574Qkbsqgxw [facility] CHEM DOOWH1751-09-64 09:42:0019[facility] HermannCHEM BUXZY0979-73-10 09:42:000.87 [facility] HermannCHEM GUNZC3622-35-98 09:42:18070Kgywhpzz HermannCHEM PANEL 2020-11-23 09:42:003.8[facility] HermannCHEM MSUPJ3072-68-68 09:42:01672Deifpdwe HermannCHEM GWDWT8568-82-22 09:42:0025[facility] HermannCHEM IGAEG4894-32-83 09:42:008.1[facility] HermannCHEM WYRYD1666-70-08 09:42:0011.8[facility] HermannCHEM HMMZL6023-30-86 09:42:0084[facility] BzwbnkfYPRNGVXHPF8532-26-05 09:42:0075.2 [facility] QutbesmSYSUOJHPIC5101-39-83 09:42:0013.3[facility] HermannHEMATOLOGY 2020-11-23 09:42:009.7[facility] OkentmoXLCWIURFCE8260-38-58 09:42:001.3[facility] MliiuwnALYUQZFESM7069-26-53 09:42:000.5[facility] PchajpxKBPETCXTFN6242-92-12 09:42:005.2[facility] BfwhysbVCQLUTCONU1575-56-81 09:42:000.9[facility] PWLXLRBNWL3384-75-16 09:42:000.7[facility] AutwuhjCKQDBBEGCU5493-66-34 09:42:000.1 [facility] WjnhyvjYGVESIGABO5432-64-94 09:42:006.9[facility] HermannHEMATOLOGY 2020-11-23 09:42:003.26[facility] XnbzcojQBEWXLERHR1629-62-48 09:42:0010.4[facility] TvyqtuyMJCIMHXPSY0321-44-03 09:42:0030.6[facility] MamyerwKQGQHTPSRM3420-05-90 09:42:0093.9[facility] QgvqqcpGPYDHJIYPL0537-09-16 09:42:00 Test Item Value Reference Range Interpretation Comments MCH (test code = MCH) 31.8 pg 27.0-31.0 [facility] SdmqbibANGECIROVV5318-11-65 09:42:0033.9[facility] HermannHEMATOLOGY 2020-11-23 09:42:0015.1[facility] QcwqgxyETNXHXDKRL4959-25-26 09:42:28804Dtcyhtht QhczgcsSPBSWESGJJ3308-99-84 09:42:008.0[facility] HermannCHEM UEZRJ9728-23-78 09:33:0091[facility] HermannCHEM KTVRZ1021-44-11 09:33:0021[facility] HermannCHEM WVJOI2416-60-70 09:33:001.00[facility] HermannCHEM KPXSR3603-87-67 09:33:35676 [facility] HermannCHEM VVVHH1502-33-64 09:33:003.8[facility] HermannCHEM PANEL 2020-11-22 09:33:94532Rexzmppw HermannCHEM XYRLC3092-61-24 09:33:0025[facility] HermannCHEM PKJSO0413-03-42 09:33:007.9[facility] HermannCHEM PWKSQ0471-87-40 09:33:005.5[facility] HermannCHEM DWSTH6083-76-70 09:33:002.1[facility] HermannCHEM ETAPJ6080-17-77 09:33:0056[facility] HermannCHEM LFVTE5836-59-06 09:33:0034 [facility] HermannCHEM HUCHK0180-98-69 09:33:0074[facility] HermannCHEM PANEL 2020-11-22 09:33:001.6[facility] HermannCHEM AHRIY9863-53-72 09:33:0011.8[facility] HermannCHEM ANUDH1483-06-04 09:33:00 Test Item Value Reference Range Interpretation Comments B/C Ratio (test code = B/C Ratio) 21 1 6-25 [facility] HermannCHEM ARKCL1704-34-01 09:33:003.4[facility] HermannCHEM PANEL 2020-11-22 09:33:00 Test Item Value Reference Range Interpretation Comments A/G Ratio (test code = A/G Ratio) 0.6 1 0.7-1.6 [facility] HermannCHEM HVXTR5382-59-55 09:33:0073[facility] HermannHEMATOLOGY 2020-11-22 09:33:007.2[facility] XeuhodhPGKBAYSUTS9901-85-42 09:33:003.17[facility] TqadghpXNCHYDVLRQ9248-81-68 09:33:0010.4[facility] YspgaiwHXKUYXSBSB8232-88-13 09:33:0030.1[facility] DzavysbEFKWIDDBAV3402-74-01 09:33:0095.1[facility] ONTOFGVDGF4268-00-90 09:33:00 Test Item Value Reference Range Interpretation Comments MCH (test code = MCH) 32.7 pg 27.0-31.0 [facility] AncxhwoPZUHXEGIKJ1292-32-39 09:33:0034.4[facility] HermannHEMATOLOGY 2020-11-22 09:33:0015.1[facility] XmmxdtzNHMRXGZKNU4973-28-73 09:33:95316Trkocnbs WaobhwwMSNWRSJRNW9504-46-75 09:33:008.0[facility] WeexipqHGIFXJPTIP4062-41-76 09:33:0077.0[facility] GdnmqydQXQQTEMANO3378-46-80 09:33:0012.9[facility] LRKSFXGWAB4596-32-13 09:33:008.9[facility] BmgbohkDWBWSFUAPU2137-20-37 09:33:001.1 [facility] YmvzhrbSPZBFUDUSD9183-79-97 09:33:000.1[facility] HermannHEMATOLOGY 2020-11-22 09:33:005.6[facility] YeibalvLLTPDJMIJI1149-54-67 09:33:000.9[facility] QgcsbpvYLNJUHPEJB2760-43-49 09:33:000.6[facility] QqvbyojZYFKNWBLGW3155-95-41 09:33:000.1[facility] BbqhpumMEDQYMLTHX4501-72-61 16:16:00 Test Item Value Reference Range Interpretation Comments PTT (test code = PTT) 102.9 s 22.9-35.8 [facility] HermannCHEM RUSMQ1842-33-69 09:04:82106Hpnldvmq HermannCHEM PANEL 2020-11-21 09:04:0025[facility] HermannCHEM YKKBJ6269-37-09 09:04:001.13[facility] HermannCHEM MVAZU9442-09-98 09:04:72037Xafbiuyo HermannCHEM UDRLG4398-54-74 09:04:003.8[facility] HermannCHEM URIPW8458-17-68 09:04:19531Ugtubgia HermannCHEM ZREWI4664-84-55 09:04:0025[facility] HermannCHEM RONPY1868-04-88 09:04:0011.8 [facility] HermannCHEM SZGCB9477-99-24 09:04:007.9[facility] HermannCHEM PANEL 2020-11-21 09:04:00 Test Item Value Reference Range Interpretation Comments B/C Ratio (test code = B/C Ratio) 22 1 6-25 [facility] HermannCHEM OJSKY6295-40-66 09:04:005.7[facility] HermannCHEM PANEL 2020-11-21 09:04:002.2[facility] HermannCHEM LNFYP5184-24-16 09:04:003.5[facility] HermannCHEM URATT4226-39-13 09:04:00 Test Item Value Reference Range Interpretation Comments A/G Ratio (test code = A/G Ratio) 0.6 1 0.7-1.6 [facility] HermannCHEM JDILN5653-48-99 09:04:0067[facility]annCHEM PANEL 2020-11-21 09:04:0048[facility]annCHEM PXFYW0152-58-19 09:04:0081[facility]annCHEM ZASZK3390-93-44 09:04:001.7[facility]annCHEM NYYBY9579-89-45 09:04:0063[facility] IptkdzjKJNCPMBTBU0054-96-64 09:04:009.2[facility] Dellrose BPFHXEJSEM3370-67-82 09:04:003.29[facility] QkxgrhxAVAYNCWHHV7293-87-47 09:04:00 10.6[facility] CxjxmjgTGESDKZOZW2620-02-67 09:04:0031.3[facility]annHEMATOLOGY 2020-11-21 09:04:0095.1[facility] WltwcfoRCHAGLYDUP8548-55-67 09:04:00 Test Item Value Reference Range Interpretation Comments MCH (test code = MCH) 32.2 pg 27.0-31.0 [facility] BttuwncEVEASLBZDO6673-75-42 09:04:0033.8[facility]annHEMATOLOGY 2020-11-21 09:04:0014.8[facility] UgnzvwfREEJGETGVH7628-99-23 09:04:86011Amejulcx WanccwxURWDEOFSWB9922-99-69 09:04:008.3[facility] AwwwnhbICIEEIZVMJ5663-76-93 09:04:0077.6[facility] ZfdycffQEVFGPOSUD9701-72-52 09:04:0013.3[facility] ACUVWZCBNY9844-43-53 09:04:008.5[facility] UluzpbzMVCYEFSDRQ5661-73-97 09:04:000.4 [facility] GfaukrjAVQTFIJAVG9306-67-29 09:04:000.2[facility]annHEMATOLOGY 2020-11-21 09:04:007.1[facility] DexjtciQLTFRKKWOU9178-29-34 09:04:001.2[facility] NxkuqvnSZARZALUNC2689-69-38 09:04:000.8[facility] UxuhexoGWKCGUPOHR2361-11-20 09:04:00 Test Item Value Reference Range Interpretation Comments PTT (test code = PTT) 65.3 s 22.9-35.8 [facility]iaownxOQDEIDNENM4962-61-11 02:13:00 Test Item Value Reference Range Interpretation Comments PTT (test code = PTT) 116.3 s 22.9-35.8 [facility]annCHE[facility] QROIK8824-96-71 11:31:000.21Mepariwv HermannCHEM PANEL 2020-11-20 11:31:00 Test Item Value Reference Range Interpretation Comments B/C Ratio (test code = B/C Ratio) 15 1 6-25 [facility]CHE[facility] QDYHT7828-28-45 11:31:006.2[facility]annCHEM PANEL 2020-11-20 11:31:002.6[facility]annCHEM SFQTG8287-54-53 11:31:003.6[facility]annCHEM YIYXE8702-34-31 11:31:00 Test Item Value Reference Range Interpretation Comments A/G Ratio (test code = A/G Ratio) 0.7 1 0.7-1.6 [facility]CHE[facility] YDNWV6345-17-12 11:31:0080Meparial HermannCHEM PANEL 2020-11-20 11:31:97496Jklznwxh HermannCHEM XRSZH8215-73-66 11:31:0065[facility]CHE[facility] XWOCB1128-93-88 11:31:003.1[facility] CenterSxngimgSUQSCSIOCK3624-25-71 23:30:00 Test Item Value Reference Range Interpretation Comments PT (test code = PT) 17.2 s 12.0-14.7 [facility] CenterZqbgaurBVVIZJQBHA2506-51-36 23:30:00 Test Item Value Reference Range Interpretation Comments INR (test code = INR) 1.44 1 0.85-1.17 [facility] QsdbproNKHDZNMKRW6185-23-24 16:01:00 Test Item Value Reference Range Interpretation Comments PT (test code = PT) 16.8 s 12.0-14.7 [facility] FjkldxiHYIIQDMRCD5735-86-07 16:01:00 Test Item Value Reference Range Interpretation Comments INR (test code = INR) 1.39 1 0.85-1.[address] [facility] MWMQOUW3802-75-54 14:48:00Negative (11/19/20 8:48 AM) [facility] HospitalDabKick [facility] BYVGFDG2340-69-67 14:27:00Product available 4(11/19/20 8:27 AM)[facility]annCHEM TNXIJ1194-16-68 11:38:002.2[facility]annCHEM UDETV8923-74-18 11:38:003.3[facility] HermannPARATHYROID UQKNAJZ3622-26-23 11:38:001.10[facility] HermannPARATHYROID OGMFLXE9707-37-98 11:38:001.11[facility] MoapebbTELGHYIUKJ9388-29-99 10:03:00 Test Item Value Reference Range Interpretation Comments PT (test code = PT) 16.6 s 12.0-14.7 [facility] FnbscddFKRFUSQYKG8701-62-18 10:03:00 Test Item Value Reference Range Interpretation Comments INR (test code = INR) 1.37 1 0.85-1.17 [facility]annCHEM WMAET7419-89-94 04:04:001.6[facility] HermannCARDIAC ENZYMES 2020-11-18 09:18:000.08[facility]annCHEM CRSKL8362-93-83 09:18:001.9[facility]annSPECIAL QEFOYVGBN5766-03-55 09:18:000.2[facility] HermannTUMOR MARKERS 2020-11-18 09:18:001.1[facility]annCARDIAC HVKENYX9855-51-59 03:01:000.06 [facility]annCHEM BBDKP4327-73-91 03:01:00<0.05[facility]annHEMATOLOGY 2020-11-18 01:18:003.92[facility] RiaqnkwROBINLOMFX7565-15-24 01:18:00Not Detected (11/17/20 7:18 PM)[facility]annCARDIAC SNHBKOR3632-06-05 22:50:000.07[facility] HermannCARDIAC MJVVSMM4753-40-31 22:50:469552Vwmzcfwi HermannCHEM PANEL 2020-11-17 22:50:23529Jsctzagw Barber
--- NOTE | 2021-05-10 13:21 | ER ---
Nurse's Notes [facility] Name: Manjeet Zhu Age: 75 yrs Sex: Male : 1945 Arrival Date: 05/10/2021 Time: 11:09 Bed 25 Private MD: Diagnosis: Encounter for change or removal of nonsurgical wound dressing Presentation: 05/10 11:39 Chief complaint: Patient states: Was here for a nosebleed, placed a rapid ca1 rhino and was told to have it removed after 3 days. I was an the ENT Tuesday but she will be in vacation for a week. Coronavirus screen: Client denies travel out of the [place] in the last 14 days. At this time, the client does not indicate any symptoms associated with coronavirus-19. Ebola Screen: Patient negative for fever greater than or equal to 101.5 degrees Fahrenheit, and additional compatible Ebola Virus Disease symptoms Patient denies exposure to infectious person. Patient denies travel to an Ebola-affected area in the 21 days before illness onset. No symptoms or risks identified at this time. Initial Sepsis Screen: Does the patient meet any 2 criteria? No. Patient's initial sepsis screen is negative. Does the patient have a suspected source of infection? No. Patient's initial sepsis screen is negative. Risk Assessment: Do you want to hurt yourself or someone else? Patient reports no desire to harm self or others. Onset of symptoms was May 10, 2021. 11:39 Method Of Arrival: Ambulatory ca1 11:39 Acuity: KAVITA 5 ca1 Historical: - Allergies: 11:49 No Known Allergies; ca1 - PMHx: 11:49 CVA; High Cholesterol; Hypertension; Myocardial infarction; ca1 - Immunization history:: Client reports receiving the 2nd dose of the Covid vaccine, Client reports receiving the 1st dose of the Covid vaccine, Pneumococcal vaccine is up to date, Flu vaccine is up to date. - Social history:: Smoking status: Patient denies any tobacco usage or history of. Screenin:16 Abuse screen: Denies threats or abuse. Denies injuries from another. Nutritional zb screening: On. Tuberculosis screening: No symptoms or risk factors identified. Fall Risk None identified. Assessment: 12:24 General: Appears in no apparent distress. Behavior is cooperative, agitated. Pain: zb Denies pain. Neuro: Level of Consciousness is awake, alert, obeys commands, Oriented to person, place, time, situation. Cardiovascular: Patient's skin is warm and dry. Respiratory: Airway is patent. EENT: Nares rhino located in right nare. . Derm: Skin is intact, is healthy with good turgor, Skin is dry. Musculoskeletal: Range of motion: intact in all extremities. 13:35 Reassessment: Patient appears in no apparent distress at this time. Patient and/or zb family updated on plan of care and expected duration. Pain level reassessed. Patient is alert, oriented x 3, equal unlabored respirations, skin warm/dry/pink. no bleed noted after removal of rhino. pt denies pain or discomfort at this time. advise to follow up with ENT for additional concerns. Vital Signs: 11:39 BP 92 / 75; Pulse 78; Resp 19 S; Temp 98.3(O); Pulse Ox 99% on R/A; Weight 76.66 kg ca1 (R); Height 5 ft. 11 in. (180.34 cm) (R); Pain 0/10; 13:30 BP 98 / 72; Pulse 80; Resp 16; Pulse Ox 99% on R/A; zb 11:39 Body Mass Index 23.57 (76.66 kg, 180.34 cm) ca1 ED Course: 11:09 Patient arrived in ED. as 11:49 Triage completed. ca1 11:49 Arm band placed on right wrist. ca1 12:15 Aubrie Sarah, BRO is Primary Nurse. zb 12:16 Patient has correct armband on for positive identification. Pulse ox on. NIBP on. zb 12:30 Juwan Taylor MD is Attending Physician. tw4 13:35 No provider procedures requiring assistance completed. Patient did not have IV access zb during this emergency room visit. Administered Medications: No medications were administered Outcome: 13:21 Discharge ordered by . tw4 13:35 Discharged to home ambulatory. zb 13:35 Condition: stable 13:35 Discharge instructions given to patient, Instructed on discharge instructions, follow up and referral plans. Demonstrated understanding of instructions, follow-up care. 13:37 Patient left the ED. zb Signatures: Rajni Hamm as Juwan Taylor MD MD tw4 Sherly Melchor RN RN ca1 Aubrie Sarah, RN RN zb
[2021-05-10 13:41] VITALS: BP 92/75; TEMP 98.3; O2SAT 99
--- NOTE | 2021-05-11 13:37 | EDPHYS ---
Physician Documentation [facility] Name: Manjeet Zhu Age: 75 yrs Sex: Male : 1945 Arrival Date: 05/10/2021 Time: 11:09 Bed 25 Private MD: ED Physician Juwan Taylor HPI: 05/10 18:42 This 75 yrs old Male presents to ER via Ambulatory with complaints of Nose tw4 Problem - rhino removal. 18:42 Onset: The symptoms/episode began/occurred 3 day(s) ago. Severity of symptoms: At their tw4 worst the symptoms were very mild in the emergency department the symptoms are unchanged. The patient has experienced a previous episode. Historical: - Allergies: 11:49 No Known Allergies; ca1 - PMHx: 11:49 CVA; High Cholesterol; Hypertension; Myocardial infarction; ca1 - Immunization history:: Client reports receiving the 2nd dose of the Covid vaccine, Client reports receiving the 1st dose of the Covid vaccine, Pneumococcal vaccine is up to date, Flu vaccine is up to date. - Social history:: Smoking status: Patient denies any tobacco usage or history of. ROS: 18:42 ENT: Positive for nasal rhino rocket right nare. tw4 Exam: 18:42 Constitutional: This is a well developed, well nourished patient who is awake, alert, tw4 and in no acute distress. Head/Face: Normocephalic, atraumatic. Chest/axilla: Normal chest wall appearance and motion. Nontender with no deformity. No lesions are appreciated. Cardiovascular: Regular rate and rhythm with a normal S1 and S2. No gallops, murmurs, or rubs. Normal PMI, no JVD. No pulse deficits. Respiratory: Lungs have equal breath sounds bilaterally, clear to auscultation and percussion. No rales, rhonchi or wheezes noted. No increased work of breathing, no retractions or nasal flaring. Abdomen/GI: Soft, non-tender, with normal bowel sounds. No distension or tympany. No guarding or rebound. No evidence of tenderness throughout. Back: No spinal tenderness. No costovertebral tenderness. Full range of motion. Skin: Warm, dry with normal turgor. Normal color with no rashes, no lesions, and no evidence of cellulitis. MS/ Extremity: Pulses equal, no cyanosis. Neurovascular intact. Full, normal range of motion. Neuro: Awake and alert, GCS 15, oriented to person, place, time, and situation. Cranial nerves II-XII grossly intact. Motor strength 5/5 in all extremities. Sensory grossly intact. Cerebellar exam normal. Normal gait. 18:42 ENT: Nose: . Vital Signs: 11:39 BP 92 / 75; Pulse 78; Resp 19 S; Temp 98.3(O); Pulse Ox 99% on R/A; Weight 76.66 kg ca1 (R); Height 5 ft. 11 in. (180.34 cm) (R); Pain 0/10; 13:30 BP 98 / 72; Pulse 80; Resp 16; Pulse Ox 99% on R/A; zb 11:39 Body Mass Index 23.57 (76.66 kg, 180.34 cm) ca1 MDM: 13:21 Patient medically screened. tw4 18:45 Data reviewed: vital signs, nurses notes. ED course: rhino rocket removed no epistaxis tw4 noted. Administered Medications: No medications were administered Disposition Summary: 05/10/21 13:21 Discharge Ordered Location: Home tw4 Problem: new tw4 Symptoms: have improved tw4 Condition: Stable tw4 Diagnosis - Encounter for change or removal of nonsurgical wound dressing tw4 Followup: tw4 - With: Private Physician - When: Upon discharge from the Emergency Department - Reason: Recheck today's complaints, Continuance of care, Re-evaluation by your physician Discharge Instructions: - Discharge Summary Sheet tw4 - Nosebleed, Adult tw4 Forms: - Medication Reconciliation Form tw4 - Thank You Letter tw4 - Antibiotic Education tw4 - Prescription Opioid Use tw4 Signatures: Juwan Taylor MD MD tw4 Sherly Melchor RN RN ca1
== END 2021-05-10 13:37 | disposition home or self-care (01) ==
LOC: ER 11:06
DX: Z48.00 Encounter for change or removal of nonsurgical wound dressing (principal)
CPT/HCPCS: 99283

== ENCOUNTER 2022-10-13 15:24 | Inpatient (IN) | payer MEDICARE, OTHER ==
--- OUTSIDE RECORDS SUMMARY | 2022-10-13 15:39 | XMS REPORT | Continuity of Care Document ---
:1945 Author Organization [facility] t Address [address] [place] [address] Care Team Providers Name Role Phone Otto Bradley DO Primary Care Physician [phone] Vernon Bajwa Attending Clinician Unavailable Barney Renteria MD Attending Clinician Tico CRABTREE, Deann Attending Clinician Unavailable Jennifer Schaefer MD Attending Clinician [phone] MD BARNEY RENTERIA Attending Clinician Unavailable Jennifer Cash CRNA Attending Clinician Terrance Garza Attending Clinician Jenni Garza Attending Clinician JENNI GARZA Attending Clinician Unavailable NIRAV GREGG M.D. Attending Clinician Unavailable SIMI NAVARRO Attending Clinician Unavailable Simi Navarro Attending Clinician BARNEY RENTERIA Admitting Clinician Unavailable MD BARNEY RENTERIA Admitting Clinician Unavailable Jenni Garza Admitting Clinician JENNI GARZA Admitting Clinician Unavailable SIMI NAVARRO Admitting Clinician Unavailable Simi Navarro Admitting Clinician Payers Payer Name Policy Type Policy Number Effective Date Expiration Date Kalli ANDREANYU [facility] 53 [id number] 2020 [facility] ADVANTAGE 00:00:00 - CHI [facility] MEDICARE MB [id number] [facility]IT[facility] MEDICARE MB [id number] [facility] MEDICARE MB [id number] [facility] MEDICARE MB [id number] [facility] Problems Condition Condition Condition Status Onset Resolution Last Treating Co mments Source Name Details Category Date Date Treatment Clinician Date Myocardiop Myocardiop Disease Active M cassius athy athy 12-09 st 00:00: Hospita 00 l COVID-19 COVID-19 Disease Active Metho di virus virus 12-07 st detected detected 00:00: Hospit a 00 l ACUTE CHF ACUTE CHF Diagnosis Active 2020-12-22 Memoria Active 2-12 12:58:00 l 12/12/2020 00:00: Leonardo boyd [facility] 00 [place] CHF, AND CHF, AND Diagnosis Active 2020-12-12 Memoria AFIB AFIB 212 14:09:00 l Active 00:00: [place] 12/12/2020 [facility] [place] CHF, AFIB CHF, AFIB Diagnosis Active 2020-12-12 Memoria Active 2-12 16:42:00 l 12/12/2020 00:00: Leonardo boyd [facility] 00 [place] PULMNARY PULMNARY Diagnosis Active 2020-11-27 Memoria EMBOLI EMBOLI -18 22:01:00 l Active 00:00: [place] [facility], NO SOB, NO Diagnosis Active 2020-11-17 Memoria APPETITE APPETITE -18 15:35:00 l Active 00:00: [place] 11/17/2020 [facility] Barber Essential Benign Problem Common hypertensi essential Spi rit on HTN - [facility] Atheroscle Arterioscl 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 - [facility] disease of artery [facility] coronary Medical artery Center without angina pectoris Cerebrovas CVA Problem Commo n cular (cerebral Spirit accident infarction - CH I ) [facility] Hyperlipid Hyperlipid Problem C dago younger emia Spirit [facility] [id number] BPH Problem Common without Spirit obstructio - CHI n/lower urinary [facility] tract Medical symptoms Center [id number] Environmen Problem Co mmon kyra Spirit allergies [facility] [id number] Subclinica Problem Com mon l Spirit hypothyroi - CHI dism [facility] [id number] Bilateral Problem Comm on hearing Spirit loss, - CHI unspecifie [facility] hearing [facility] loss type [facility] [id number] Decreased Problem Comm on appetite Spirit [facility] [id number] Heart Problem Common failure Spirit with - CHI reduced ejection [facility] fraction [facility] [id number] Sleep Problem Common apnea, [facility] unspecifie - [facility] d [facility] [id number] Acquired Problem Comm on hypothyroi Spirit dism [facility] [id number] Other Problem Common chronic Spirit pain - [facility] [id number] [place] [address] stenosis, Spirit right - [facility] [id number] Insomnia, Problem Com mon unspecifie Spirit d type [facility] [id number] Elevated Problem Comm on TSH Spirit [facility] Tinnitus Tinnitus Problem Commo n Spirit [facility] [id number] Atrial Problem Common fibrillati Spirit on, - CHI unspecifie [facility] [id number] Repetitive Problem Co mmon intrusions Spirit of sleep - [facility] [id number] Acute on Problem Comm on chronic Spirit systolic - [facility] congestive heart [facility] failure Medical Center Sinusitis Sinusitis Problem Com mon Spirit - [facility] Chronic 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 (disorder) [facility] No known No known Disease Metho di active active st problems problems Hospit a l Dyslipidem Dyslipidem Problem Active U T ia ia Physici ans 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 History of History of Problem Active U T pulmonary pulmonary Phys ici embolus embolus ans (PE) (PE) FPC FPC Problem Active UT (current) (current) Phys ici use of use of ans anticoagul anticoagul ants ants History of History of Problem Active U T stroke stroke Physici ans History of History of Problem Resolve UT hyperlipid hyperlipid d Ph ysici emia emia ans History of History of Problem Resolve UT hypertensi hypertensi d Ph ysici on on ans Chronic Chronic Problem Active UT heart heart Physici failure failure ans with with reduced reduced ejection ejection fraction fraction and and diastolic diastolic dysfunctio dysfunctio n n Persistent Persistent Problem Active U T atrial atrial Physici fibrillati fibrillati an s on on HTN HTN Problem Active UT (hypertens (hypertens Ph ysici ion) ion) ans Single Single Problem 2020-12-23 Abisai obdulio liveborn liveborn 22:21:36 l infant, infant, [place] delivered delivered by by 12/23/2020 [facility] Myocardial Myocardia Problem Resolve 2021-08-20 Memoria infarction l d 22:46:59 l (disorder) infarction He rmann (disorder) Resolved [facility]ens[facility] Problem Active 2021-08-20 M emoria ve Hypertensi 22:46:59 l disorder, ve [place] systemic disorder, arterial systemic (disorder) arterial (disorder) Active Problem [facility]20[facility]2021 [facility] Thrombotic Problem Active 2021-08-20 M emoria stroke Thrombotic 22:46:59 l (disorder) stroke Leonardo n (disorder) Active Problem [facility]20[facility]2021 [facility] Coronary Coronary Problem Active 2021-08-20 Memoria arterioscl arterioscl 22:46:59 l erosis erosis [place] (disorder) (disorder) Active Problem 08/20/2021 [facility] History of History Problem Active 2021-08-20 Memoria - CVA of - CVA 22:46:59 l (context-d (context-d He rmann ependent ependent category) category) Active Problem [facility] OTHER OTHER Diagnosis Active 2020-11-27 Mem oria PULMONARY PULMONARY 22:01:00 l EMBOLISM EMBOLISM Leonardo n WITHOUT WITHOUT ACUTE C ACUTE C Active [facility] HEART HEART Diagnosis Active 2020-12-22 Mem oria FAILURE, FAILURE, 12:58:00 l UNSPECIFIE UNSPECIFIE He rmann D D Active [facility] UNSPECIFIE Diagnosis Active 2020-12-12 Memoria D ATRIAL UNSPECIFIE 16:42:00 l FIBRILLATI D ATRIAL Herm elizabeth ON FIBRILLATI ON Active [facility] SINGLE SINGLE Diagnosis Active 2020-12-20 Me moria LIVEBORN LIVEBORN 10:16:00 l , INFANT, [place] DELIVERED DELIVERED BY JOVANNI BY JOVANNI Active [facility] Allergies, Adverse Reactions, Alerts This patient has no known allergies or adverse reactions. Family History Family Member Diagnosis Comments Start Date Stop Date Source Mother Family history of [facility] cardiac pacemaker Sister Family history of [facility] malignant neoplasm Natural father [facility] Natural mother [facility] Social History Social Habit Start Date Stop Date Quantity Comments Source History of [facility] - Tobacco Use [facility] Exposure to Not sure [facility] [address] (event) Alcohol intake 2021-12-14 2021-12-14 Current drinker [facility]o dist 00:00:00 00:00:00 of alcohol Hospital (finding) Tobacco use and 2017-11-16 2017-11-16 Smokeless tobacco [facility] exposure 00:00:00 00:00:00 non-user Hospital Sex Assigned At [birth year] [facility] 00:00:00 00:00:00 Hospital Smoking Status Start Date Stop Date Source Social History 2020-12-12 23:57:56 2020-12-12 23:57:56 [facility] Medications Ordered Filled Start Stop Current Ordering Indication Dosage Frequency Signature Comments Components Source Medication Medication Date Date Medication? Clinician (SIG) Name Name Zolpidem Zolpidem 2021-10 No 1{table QD Zolpidem Tartrate 10 Tartrate 10 1-14 t_at_be Tartrate MG MG 00:00: dtime_a 10 MG 00 s_neede d} Zolpidem Zolpidem 2021-10 No 1{table QD Zolpidem Tartrate 10 Tartrate 10 1-14 t_at_be Tartrate MG MG 00:00: dtime_a 10 MG 00 s_neede d} Zolpidem Zolpidem 2021-10 No 1{table QD Zolpidem Tartrate 10 Tartrate 10 1-14 t_at_be Tartrate MG MG 00:00: dtime_a 10 MG 00 s_neede d} Zolpidem Zolpidem 2-1 No 1{table QD Zolpidem Tartrate 10 Tartrate 10 0-31 t_at_be Tartrate MG MG 00:00: dtime_a 10 MG 00 s_neede d} Zolpidem Zolpidem 2-0 No 1{table QD Zolpidem Tartrate 10 Tartrate 10 8-23 t_at_be Tartrate MG MG 00:00: dtime_a 10 MG 00 s_neede d} Zolpidem Zolpidem 2-0 No 1{table QD Zolpidem Tartrate 10 Tartrate 10 8-23 t_at_be Tartrate MG MG 00:00: dtime_a 10 MG 00 s_neede d} Zolpidem Zolpidem 2-0 No 1{table QD Zolpidem Tartrate 10 Tartrate 10 8-23 t_at_be Tartrate MG MG 00:00: dtime_a 10 MG 00 s_neede d} Zolpidem Zolpidem 2-0 No 1{table QD Zolpidem Tartrate 10 Tartrate 10 8-23 t_at_be Tartrate MG MG 00:00: dtime_a 10 MG 00 s_neede d} Zolpidem Zolpidem 2-0 No 1{table QD Zolpidem Tartrate 10 Tartrate 10 8-23 t_at_be Tartrate MG MG 00:00: dtime_a 10 MG 00 s_neede d} Zolpidem Zolpidem 2-0 No 1{table QD Zolpidem Tartrate 10 Tartrate 10 8-23 t_at_be Tartrate MG MG 00:00: dtime_a 10 MG 00 s_neede d} Zolpidem Zolpidem 2-0 No 1{table QD Zolpidem Tartrate 10 Tartrate 10 5-24 t_at_be Tartrate MG MG 00:00: dtime_a 10 MG 00 s_neede d} Zolpidem Zolpidem 2-0 No 1{table QD Zolpidem Tartrate 10 Tartrate 10 5-24 t_at_be Tartrate MG MG 00:00: dtime_a 10 MG 00 s_neede d} Zolpidem Zolpidem 2-0 No 1{table QD Zolpidem Tartrate 10 Tartrate 10 4-22 t_at_be Tartrate MG MG 00:00: dtime_a 10 MG 00 s_neede d} Zolpidem Zolpidem 2-0 No 1{table QD Zolpidem Tartrate 10 Tartrate 10 4-22 t_at_be Tartrate MG MG 00:00: dtime_a 10 MG 00 s_neede d} Zolpidem Zolpidem 2-0 No 1{table QD Zolpidem Tartrate 10 Tartrate 10 4-22 t_at_be Tartrate MG MG 00:00: dtime_a 10 MG 00 s_neede d} Zolpidem Zolpidem 2-0 No 1{table QD Zolpidem Tartrate 10 Tartrate 10 4-22 t_at_be Tartrate MG MG 00:00: dtime_a 10 MG 00 s_neede d} Zolpidem Zolpidem 2-0 No 1{table QD Zolpidem Tartrate 10 Tartrate 10 2-21 t_at_be Tartrate MG MG 00:00: dtime_a 10 MG 00 s_neede d} Zolpidem Zolpidem 2-0 No 1{table QD Zolpidem Tartrate 10 Tartrate 10 2-21 t_at_be Tartrate MG MG 00:00: dtime_a 10 MG 00 s_neede d} Zolpidem Zolpidem 2-0 No 1{table QD Zolpidem Tartrate 10 Tartrate 10 2-21 t_at_be Tartrate MG MG 00:00: dtime_a 10 MG 00 s_neede d} Zolpidem Zolpidem 2-0 No 1{table QD Zolpidem Tartrate 10 Tartrate 10 2-21 t_at_be Tartrate MG MG 00:00: dtime_a 10 MG 00 s_neede d} rivaroxaban 2-0 Yes 20mg QD Take 20 mg [facility] (XARELTO) 2-[address] 20 mg 09:53: daily. Hospita tablet 02 l metoprolol Yes 12.5mg QD Take 12.5 [facility] tartrate 2-[address] (LOPRESSOR) 09:53: mouth Hospi ta 25 mg 02 daily. l tablet BUMETanide Yes 1mg Q.5D Take 1 mg Me thodi (BUMEX) 1 2-[address] MG tablet 09:53: (two) Hospita 02 times a l day. levothyroxi Yes 88ug QD Take 88 Met hodi ne 2-[address] (SYNTHROID) 09:53: mouth Hospi ta 100 mcg 02 daily. l tablet spironolact Yes 25mg QD Take 25 mg [facility] one 2-[address] (ALDACTONE) 09:53: daily. Hosp shanna 25 MG 02 l tablet sacubitriL- Yes 1{tbl} Q.5D Take 1 Me [facility]odi valsartan 2-[address] (Entresto) 09:53: mouth 2 Hosp shanna 97-103 mg 02 (two) l tablet per times a tablet day. tamsulosin Yes .4mg QD Take 0.4 Met hodi (FLOMAX) 2-[address] 0.4 mg 09:53: mouth Hospita capsule 02 daily with l dinner. Zolpidem Zolpidem No 1{table QD Zolpidem Tartrate ER Tartrate ER 1-24 t_at_be Tartrate 12.5 MG 12.5 MG 00:00: dtime_a ER 12.5 MG 00 s_neede d} Levothyroxi Levothyroxi No QD Levothyrox ne Sodium ne Sodium 1-24 ine Sodium 100 MCG 100 MCG 00:00: 100 MCG 00 Zolpidem Zolpidem No 1{table QD Tartrate ER Tartrate ER 1-24 t_at_be 12.5 MG 12.5 MG 00:00: dtime_a 00 s_neede d} Levothyroxi Levothyroxi No QD ne Sodium ne Sodium 1-24 100 MCG 100 MCG 00:00: 00 Zolpidem Zolpidem No 1{table QD Zolpidem Tartrate ER Tartrate ER 1-24 t_at_be Tartrate 12.5 MG 12.5 MG 00:00: dtime_a ER 12.5 MG 00 s_neede d} Levothyroxi Levothyroxi No QD Levothyrox ne Sodium ne Sodium 1-24 ine Sodium 100 MCG 100 MCG 00:00: 100 MCG 00 Zolpidem Zolpidem No 1{table QD Zolpidem Tartrate ER Tartrate ER 1-24 t_at_be Tartrate 12.5 MG 12.5 MG 00:00: dtime_a ER 12.5 MG 00 s_neede d} Levothyroxi Levothyroxi No QD Levothyrox ne Sodium ne Sodium 1-24 ine Sodium 100 MCG 100 MCG 00:00: 100 MCG 00 Levothyroxi Levothyroxi No QD Levothyrox ne Sodium ne Sodium 1-24 ine Sodium 100 MCG 100 MCG 00:00: 100 MCG 00 Zolpidem Zolpidem No 1{table QD Zolpidem Tartrate ER Tartrate ER 1-24 t_at_be Tartrate 12.5 MG 12.5 MG 00:00: dtime_a ER 12.5 MG 00 s_neede d} Levothyroxi Levothyroxi No QD Levothyrox ne Sodium ne Sodium 1-24 ine Sodium 100 MCG 100 MCG 00:00: 100 MCG 00 Zolpidem Zolpidem No 1{table QD Zolpidem Tartrate ER Tartrate ER 1-24 t_at_be Tartrate 12.5 MG 12.5 MG 00:00: dtime_a ER 12.5 MG 00 s_neede d} Levothyroxi Levothyroxi No QD Levothyrox ne Sodium ne Sodium 1-24 ine Sodium 100 MCG 100 MCG 00:00: 100 MCG 00 Levothyroxi Levothyroxi No QD Levothyrox ne Sodium ne Sodium 1-24 ine Sodium 100 MCG 100 MCG 00:00: 100 MCG 00 Levothyroxi Levothyroxi 2022-0 No QD Levothyrox ne Sodium ne Sodium 1-24 ine Sodium 100 MCG 100 MCG 00:00: 100 MCG 00 Levothyroxi Levothyroxi 2021-0 No QD Levothyrox ne Sodium ne Sodium 1-24 ine Sodium 100 MCG 100 MCG 00:00: 100 MCG 00 Levothyroxi Levothyroxi 0 No QD Levothyrox ne Sodium ne Sodium 1-24 ine Sodium 100 MCG 100 MCG 00:00: 100 MCG 00 Zolpidem Zolpidem 2021-0 No 1{table QD Tartrate 10 Tartrate 10 1-10 t_at_be MG MG 00:00: dtime_a 00 s_neede d} Zolpidem Zolpidem 2021-0 No 1{table QD Zolpidem Tartrate 10 Tartrate 10 1-10 t_at_be Tartrate MG MG 00:00: dtime_a 10 MG 00 s_neede d} Zolpidem Zolpidem 2021-0 No 1{table QD Zolpidem Tartrate 10 Tartrate 10 1-10 t_at_be Tartrate MG MG 00:00: dtime_a 10 MG 00 s_neede d} Zolpidem Zolpidem 2021-0 No 1{table QD Zolpidem Tartrate 10 Tartrate 10 1-10 t_at_be Tartrate MG MG 00:00: dtime_a 10 MG 00 s_neede d} Zolpidem Zolpidem 2021-0 No 1{table QD Zolpidem Tartrate 10 Tartrate 10 1-10 t_at_be Tartrate MG MG 00:00: dtime_a 10 MG 00 s_neede d} Zolpidem Zolpidem 2020-1 No 1{table QD Zolpidem Tartrate 10 Tartrate 10 0-14 t_at_be Tartrate MG MG 00:00: dtime_a 10 MG 00 s_neede d} Zolpidem Zolpidem 2020-1 No 1{table QD Tartrate 10 Tartrate 10 0-14 t_at_be MG MG 00:00: dtime_a 00 s_neede d} Zolpidem Zolpidem 2020-1 No 1{table QD Zolpidem Tartrate 10 Tartrate 10 0-14 t_at_be Tartrate MG MG 00:00: dtime_a 10 MG 00 s_neede d} Zolpidem Zolpidem 2020-10 No 1{table QD Zolpidem Tartrate 10 Tartrate 10 0-14 t_at_be Tartrate MG MG 00:00: dtime_a 10 MG 00 s_neede d} metOLazone metOLazone Yes BENNET QD TAKE 1 UT 2.5 MG Oral 2.5 MG Oral 2-26 MARYSOL TABLET Physici Tablet Tablet 00:00: M.D. ONCE ans 00 DAILY. Bumetanide Bumetanide Yes BENNET TAKE 1 UT 1 MG Oral 1 MG Oral 2-23 MARYSOL TABLET BY Physici Tablet Tablet 00:00: M.D. MOUTH ans 00 DAILY metoprolol Yes 100 mg = 1 M emoria 100 mg oral 2-21 tab, PO, l tablet, 16:30: Daily, # Leonardo n extended 00 30 tab, 0 release Refill(s), Pharmacy: [facility], 180.34, cm, 12/18/20 5:49: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, Height, 75.727, kg, 12/12/20 17:48: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, Weight rivaroxaban Yes 20 mg = 2 M emoria 10 mg oral 2-21 tab, PO, l tablet 16:30: QPM, For Barber 00 Deep Venous Thrombosis / Pulmonary Embolism, 0 Refill(s) bumetanide Yes 1 mg = 1 Mem oria 1 mg oral 2-21 tab, PO, l tablet 16:30: Daily, 0 Barber 00 Refill(s) metoprolol Yes 100 mg = 1 M emoria 100 mg oral 2-21 tab, PO, l tablet, 16:30: Daily, # Leonardo n extended 00 30 tab, 0 release Refill(s), Pharmacy: [facility], 180.34, cm, 12/18/20 5:49: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, Height, 75.727, kg, 12/12/20 17:48: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, Weight rivaroxaban Yes 20 mg = 2 M emoria 10 mg oral 2-21 tab, PO, l tablet 16:30: QPM, For Barber 00 Deep Venous Thrombosis / Pulmonary Embolism, 0 Refill(s) bumetanide Yes 1 mg = 1 Mem oria 1 mg oral 2-21 tab, PO, l tablet 16:30: Daily, 0 Refill(s) Xarelto No Notes: Memoria 2-20 (Same as: l 17:30: Xarelto) [place] 00 Xarelto No Notes: Memoria 2-20 (Same as: l 17:30: Xarelto) Amiodarone No Notes: Memor ia 2-20 (Same as: l 15:00: Cordarone) Amiodarone No Notes: Memor ia 2-20 (Same as: l 15:00: Cordarone) Bumex No Notes: Memoria 2-19 (Same As: l 17:07: Bumex) [place] 00 Bumex No Notes: Memoria 2-19 (Same As: l 17:07: Bumex) Heparin - No 6,100 Memoria one time 2-18 unit, 6.1 l bolus for 20:33: mL, Route: He rmann DVT/PE 00 IVP, Drug form: INJ, ONCE, Dosing Weight 75.727, kg, Priority: STAT, Start date: 12/18/20 14:33: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, Stop date: 12/18/20 14:33: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, 0 Heparin 80 No Route: Memor ia unit/kg 2-18 IVP, PRN, l Bolus 20:33: 6,100 [place] (Heparin 00 unit, 6.1 Dosing mL, Drug Weight) form: INJ, PRN, Heparin Protocol, Start date: 12/18/20 14:33: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 Stop date: 01/17/21 15:32:00 CDT, 30 day, 0 Heparin 40 No Route: Memor ia unit/kg 2-18 IVP, PRN, l Bolus 20:33: 3,000 [place] (Heparin 00 unit, 3 Dosing mL, Drug Weight) form: INJ, PRN, Heparin Protocol, Start date: 12/18/20 14:33: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 Stop date: 01/17/21 15:32:00 CDT, 30 day, 0 heparin No Notes: Memoria additive 2-18 Total l 25,000 unit 20:33: Concentrat [place] [18 00 ion = 50 unit/kg/hr] unit/ ml + Premix Total Diluent volume = Sodium 500 ml Chloride Send Med 0.45% 500 Request 2 mL hours prior to next bag Heparin - No 6,100 Memoria one time 2-18 unit, 6.1 l bolus for 20:33: mL, Route: He rmann DVT/PE 00 IVP, Drug form: INJ, ONCE, Dosing Weight 75.727, kg, Priority: STAT, Start date: 12/18/20 14:33: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, Stop date: 12/18/20 14:33: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, 0 Heparin 80 No Route: Memor ia unit/kg 2-18 IVP, PRN, l Bolus 20:33: 6,100 Barber (Heparin 00 unit, 6.1 Dosing mL, Drug Weight) form: INJ, PRN, Heparin Protocol, Start date: 12/18/20 14:33: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 Stop date: 01/17/21 15:32:00 CDT, 30 day, 0 Heparin 40 No Route: Memor ia unit/kg 2-18 IVP, PRN, l Bolus 20:33: 3,000 Barber (Heparin 00 unit, 3 Dosing mL, Drug Weight) form: INJ, PRN, Heparin Protocol, Start date: 12/18/20 14:33: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 Stop date: 01/17/21 15:32:00 CDT, 30 day, 0 heparin No Notes: Memoria additive 2-18 Total l 25,000 unit 20:33: Concentrat [place] [18 00 ion = 50 unit/kg/hr] unit/ ml + Premix Total Diluent volume = Sodium 500 ml Chloride Send Med 0.45% 500 Request 2 mL hours prior to next bag Ceftriaxone No Notes: Abisai obdulio 2-18 (Same As: l 20:00: Rocephin). Barber 00 Use with 100 mL NS and infuse over 30 min MEDICATION WASTE Product Size: 1000 mg Product Wasted: ___ mg Ceftriaxone No Notes: Abisai obdulio 2-18 (Same As: l 20:00: Rocephin). Use with 100 mL NS and infuse over 30 min MEDICATION WASTE Product Size: 1000 mg Product Wasted: ___ mg albumin No Notes: Lot Abisai obdulio human 25% 217 #: l intravenous 22:27: Barber solution 00 ___ Mfg: (Same as: Plasbumin- 25) "blood product derivative " WASTE: F/P - Red; E -Red MEDICATION WASTE Product Size: 25 gm Product Wasted: ___ gm albumin No Notes: Lot Abisai obdulio human 25% 2-17 #: l intravenous 22:27: Barber solution ___ Mfg: (Same as: Plasbumin- 25) "blood product derivative " WASTE: F/P - Red; E -Red MEDICATION WASTE Product Size: 25 gm Product Wasted: ___ gm Bumex No Notes: Memoria 2-17 (Same As: l 19:00: Bumex) Bumex No Notes: Memoria 2-17 (Same As: l 19:00: Bumex) zolpidem No Notes: Memoria 2-16 (Same As: l 03:00: Ambien) zolpidem No Notes: Memoria 2-16 (Same As: l 03:00: Ambien) Metoprolol No Notes: Memor ia Succinate 2-15 (Same as: l ER 50 mg 15:00: Toprol XL) Her faust oral May split tablet, tab, but extended do not release crush. Metoprolol No Notes: Memor ia Succinate 2-15 (Same as: l ER 50 mg 15:00: Toprol XL) Her faust oral 00 May split tablet, tab, but extended do not release crush. Magnesium No Notes: Memori a Sulfate 2-15 WASTE: F/P l 14:15: - Sink; E [place] [facility] Magnesium No Notes: Memori a Sulfate 2-15 WASTE: F/P l 14:15: - Sink; E Barber - [facility] Trazodone No Notes: Memori a Hydrochlori 2-15 (Same As: l de 50 MG 03:00: Desyrel) Page nn Oral Tablet 00 Trazodone No Notes: Memori a Hydrochlori 2-15 [...] s with feeding tube less than 14 Beninese (Dobhoff, J-tube etc) and pediatric and patients. potassium No Notes: Memori a chloride 20 [...] s with feeding tube less than 14 [place]inese (Dobhoff, J-tube etc) and pediatric and patients. Trazodone No Notes: Memori a Hydrochlori 2-14 (Same As: l de 50 MG 03:00: Desyrel) Page nn Oral Tablet 00 Trazodone No Notes: Memori a Hydrochlori 2-14 (Same As: l de 50 MG 03:00: Desyrel) Page nn Oral Tablet 00 Amiodarone No Notes: Memor ia 2-13 (Same as: l 23:00: Cordarone) [place] 00 Amiodarone No Notes: Memor ia 2-13 (Same as: l 23:00: Cordarone) [place] 00 Heparin 80 No Route: Memor ia unit/kg 2-13 IVP, PRN, l Bolus 16:33: 6,100 Barber (Heparin 00 unit, 6.1 Dosing mL, Drug Weight) form: INJ, PRN, Heparin Protocol, Start date: 12/13/20 10:33: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 Stop date: 01/12/21 11:32:00 CDT, 30 day, 0 Heparin 40 No Route: Memor ia unit/kg 2-13 IVP, PRN, l Bolus 16:33: 3,000 Barber (Heparin 00 unit, 3 Dosing mL, Drug Weight) form: INJ, PRN, Heparin Protocol, Start date: 12/13/20 10:33: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 Stop date: 01/12/21 11:32:00 CDT, 30 day, 0 heparin No Notes: Memoria additive 2-13 Total l 25,000 unit 16:33: Concentrat Barber [18 00 ion = 50 unit/kg/hr] unit/ ml + Premix Total Diluent volume = Sodium 500 ml Chloride Send Med 0.45% 500 Request 2 mL hours prior to next bag Heparin 80 No Route: Memor ia unit/kg 2-13 IVP, PRN, l Bolus 16:33: 6,100 Barber (Heparin 00 unit, 6.1 Dosing mL, Drug Weight) form: INJ, PRN, Heparin Protocol, Start date: 12/13/20 10:33: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 Stop date: 01/12/21 11:32:00 CDT, 30 day, 0 Heparin 40 No Route: Memor ia unit/kg 2-13 IVP, PRN, l Bolus 16:33: 3,000 Barber (Heparin 00 unit, 3 Dosing mL, Drug Weight) form: INJ, PRN, Heparin Protocol, Start date: 12/13/20 10:33: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 Talmage 00 Finasteride No Notes: Abisai obdulio 2-13 [...] ia 2-13 (Same As: l 15:00: Flomax) Talmage "Do Not Crush" Aspirin 81 No Notes: Memor ia MG Chewable 2-13 Take with l Tablet 15:00: food. Talmage 00 Finasteride No Notes: Abisai obdulio 2-13 (Same as: l 15:00: Proscar) Barber "Do Not Crush" Women of childbeari ng [...] s with feeding tube less than 14 [place] (Dobhoff, J-tube etc) and pediatric and patients. potassium No Notes: Memori a chloride 20 [...] s with feeding tube less than 14 [place] (Dobhoff, J-tube etc) and pediatric and patients. Saline No Notes: Memoria Flush 0.9% 2-13 Same as: l 03:00: BD [place] 00 Posiflush Sterile atorvastati No Notes: Abisai obdulio n 2-13 (Same As: l 03:00: Lipitor) Barber 00 Saline No Notes: Memoria Flush 0.9% 2-13 Same as: l 03:00: BD Barber 00 Posiflush Sterile atorvastati No Notes: Abisai obdulio n 2-13 (Same As: l 03:00: Lipitor) Talmage 00 Potassium No Notes: Memori a Chloride 2-13 Infuse at l 01:00: a rate of Barber 00 10 mEq/hr. (Same as: KCL) Potassium No Notes: Memori a Chloride 2-13 Infuse at l 01:00: a rate of Talmage 00 10 mEq/hr. (Same as: KCL) Amiodarone No Notes: Memor ia 2-12 (Same as: l 23:44: Cordarone) Barber Amiodarone No Notes: Memor ia 2-12 (Same as: l 23:44: Cordarone) Barber Amiodarone No Notes: Memor ia 2-12 (Same as: l 23:00: Cordarone) Xarelto No Notes: Memoria 2-12 (Same as: l 23:00: Xarelto) Amiodarone No Notes: Memor ia 2-12 (Same [...] Same as: l 22:53: BD Posiflush Sterile Furosemide No Notes: Memor ia 2-12 (Same [...] Embolism, # 36 tab, 0 Refill(s), Pharmacy: [facility], 182.88, cm, 11/17/20 14:04: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, Height, 74, kg, 11/17/20 14:04: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, Weight rivaroxaban Yes =15 Memori a 20 MG Oral 1-24 mL/min, l Tablet 18:51: 182.88, Barber [Xarelto] 00 cm, 11/17/20 14:04: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, Height, 74, kg, 11/17/20 14:04: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, Weight rivaroxaban Yes 15 mg = 1 M emoria 15 mg oral 1-24 tab, PO, l tablet 18:51: Q12H, For Leonardo n 00 Deep Venous Thrombosis / Pulmonary Embolism, # 36 tab, 0 Refill(s), Pharmacy: [facility], 182.88, cm, 11/17/20 14:04: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, Height, 74, kg, 11/17/20 14:04: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, Weight rivaroxaban Yes =15 Memori a 20 MG Oral 1-24 mL/min, l Tablet 18:51: 182.88, Talmage [Xarelto] 00 cm, 11/17/20 14:04: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, Height, 74, kg, 11/17/20 14:04: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, Weight AMIODarone Yes 200 mg = 1 M emoria 200 mg oral 1-24 tab, PO, l tablet 18:50: BID, # 60 Leonardo n 00 tab, 0 Refill(s), Pharmacy: [facility], 182.88, cm, 11/17/20 14:04: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, Height, 74, kg, 11/17/20 14:04: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, Weight Furosemide 0 Yes 20 mg = 1 Me moria 20 MG Oral 1-24 tab, PO, l Tablet 18:50: Daily, # Talmage 00 30 tab, 0 Refill(s), Pharmacy: [facility], 182.88, cm, 11/17/20 14:04: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, Height, 74, kg, 11/17/20 14:04: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, Weight lisinopril 0 Yes 2.5 mg = 1 M emoria 2.5 mg oral 1-24 tab, PO, l tablet 18:50: Daily, # Barber 00 30 tab, 0 Refill(s), Pharmacy: [facility], 182.88, cm, 11/17/20 14:04: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, Height, 74, kg, 11/17/20 14:04: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, Weight Metoprolol Yes 50 mg = 1 Me moria Succinate 1-24 tab, PO, l ER 50 mg 18:50: Daily, # Page nn oral 00 30 tab, 0 tablet, Refill(s), extended Pharmacy: [facility], 182.88, cm, 11/17/20 14:04: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, Height, 74, kg, 11/17/20 14:04: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, Weight AMIODarone Yes 200 mg = 1 M emoria 200 mg oral 1-24 tab, PO, l tablet 18:50: BID, # 60 Leonardo n 00 tab, 0 Refill(s), Pharmacy: [facility], 182.88, cm, 11/17/20 14:04: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, Height, 74, kg, 11/17/20 14:04: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, Weight Furosemide Yes 20 mg = 1 Me moria 20 MG Oral 1-24 tab, PO, l Tablet 18:50: Daily, # Barber 00 30 tab, 0 Refill(s), Pharmacy: [facility], 182.88, cm, 11/17/20 14:04: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, Height, 74, kg, 11/17/20 14:04: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, Weight lisinopril Yes 2.5 mg = 1 M emoria 2.5 mg oral 1-24 tab, PO, l tablet 18:50: Daily, # Talmage 00 30 tab, 0 Refill(s), Pharmacy: [facility], 182.88, cm, 11/17/20 14:04: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, Height, 74, kg, 11/17/20 14:04: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, Weight Metoprolol Yes 50 mg = 1 Me moria Succinate 1-24 tab, PO, l ER 50 mg 18:50: Daily, # Page nn oral 00 30 tab, 0 tablet, Refill(s), extended Pharmacy: [facility], 182.88, cm, 11/17/20 14:04: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, Height, 74, kg, 11/17/20 14:04: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, Weight Furosemide No Notes: Memor ia 20 MG Oral 1-24 (Same as: l Tablet 15:00: Lasix) February cause GI upset. Give with food or milk. Furosemide No Notes: Memor ia 20 MG Oral 1-24 (Same as: l Tablet 15:00: Lasix) February Page cause GI upset. Give with food or milk. Lisinopril No Notes: Memor ia 1-23 (Same as: l 15:00: Prinivil) Lisinopril No Notes: Memor ia 1-23 (Same as: l 15:00: Prinivil) rivaroxaban No Notes: Abisai obdulio 1-23 (Same as: l 03:00: Xarelto) Administer with food rivaroxaban No Notes: Abisai obdulio 1-23 (Same as: l 03:00: Xarelto) Talmage 00 Administer with food Versed No Notes: Memoria 1-22 (Same as: l 18:44: Versed) MEDICATION WASTE Product Size: 2 mg Product Wasted: ___ mg Fentanyl No Notes: Memoria 1-22 (Same as: l 18:44: Sublimaze) Preservati ve free. Versed No Notes: Memoria 1-22 (Same as: l 18:44: Versed) MEDICATION WASTE Product Size: 2 mg Product Wasted: ___ mg Fentanyl No Notes: Memoria 1-22 (Same as: l 18:44: Sublimaze) Preservati ve free. Digoxin No Notes: Memoria 0.25 MG 1-22 Take on an l Oral Tablet 15:00: Empty Page nn 00 Stomach (Same as: Lanoxin) Digoxin No Notes: Memoria 0.25 MG 1-22 Take on an l Oral Tablet 15:00: Empty Page nn 00 Stomach (Same as: Lanoxin) Melatonin No Notes: Memori a 1-22 (Same as: l 01:33: Melatonin) Barber 00 Melatonin No Notes: Memori a - (Same as: l 01:33: Melatonin) Amiodarone No Notes: Memor ia 11-20 (Same as: l 23:00: Cordarone) Amiodarone No Notes: Memor ia - (Same as: l 23:00: Cordarone) Lactated No 500 mL, Memori a Ringers IV 11-20 Rate: 125 l 500 mL 16:49: ml/hr, Infuse over: 4 hr, Route: IV, Dosing Weight 74 kg, Total Volume: 500, Start date: 11/20/20 10:49: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, Duration: 1 doses or times, Stop date: 11/20/20 14:48: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, 1.94, m2, 0 Lactated No 500 mL, Memori a Ringers IV 11-20 Rate: 125 l 500 mL 16:49: ml/hr, Infuse over: 4 hr, Route: IV, Dosing Weight 74 kg, Total Volume: 500, Start date: 11/20/20 10:49: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, Duration: 1 doses or times, Stop date: 11/20/20 14:48: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, 1.94, m2, 0 Cathflo No Notes: do Memor ia Activase 2 11-20 not load l mg 07:48: in pyxis Barber injection 6 00 mg + Sodium Chloride 0.9% IV 94 mL Cathflo No Notes: do Memor ia Activase 2 11-20 not load l mg 07:48: in pyxis Talmage injection 6 00 mg + Sodium Chloride 0.9% IV 94 mL Ativan No Notes: Memoria 1-20 (Same as: l 23:21: Ativan) Barber Ativan No Notes: Memoria 1-20 (Same as: l 23:21: Ativan) Barber normal No 250 mL, Memoria saline 0.9% 1-20 250 ml/hr, l (Bolus) IV 22:19: Infuse Page nn 00 Over: 1 hr, Route: IV, 250, Drug form: INJ, ONCE, Priority: STAT, Dosing Weight 74 kg, Start date: 11/19/20 16:19: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, Stop date: 11/19/20 16:19: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, 0 normal No 250 mL, Memoria saline 0.9% 1-20 250 ml/hr, l (Bolus) IV 22:19: Infuse Page nn 00 Over: 1 hr, Route: IV, 250, Drug form: INJ, ONCE, Priority: STAT, Dosing Weight 74 kg, Start date: 11/19/20 16:19: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, Stop date: 11/19/20 16:19: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, 0 Metoprolol No Notes: Memor ia Succinate 1-20 (Same as: l ER 50 mg 22:18: Toprol XL) Her faust oral 00 May split tablet, tab, but extended do not release crush. Metoprolol No Notes: Memor ia Succinate 1-20 (Same as: l ER 50 mg 22:18: Toprol XL) Her faust oral 00 May split tablet, tab, but extended do not release crush. heparin No Notes: Memoria additive 1-20 Total l 25,000 unit 19:50: Concentrat Talmage [250 00 ion = 50 unit/hr] + unit/ ml Premix Total Diluent volume = Sodium 500 ml Chloride Send Med 0.45% 500 Request 2 mL hours prior to next bag Sodium No 1,000 mL, Memori a Chloride 1-20 Rate: 35 l 0.9% IV 19:50: ml/hr, Barber 1,000 mL 00 Infuse over: 28.6 hr, Route: IV, Dosing Weight 74 kg, Total Volume: 1,000, Start date: 11/19/20 13:50: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, Duration: 2 day, Stop date: 11/21/20 13:49: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, 1.94, m2, 0 Cathflo No Notes: do Memor ia Activase 2 1-20 not load l mg 19:50: in pyxis Barber injection 6 00 mg + Sodium Chloride 0.9% IV 94 mL Cathflo No Notes: do Memor ia Activase 2 1-20 not load l mg 19:50: in pyxis Barber injection 6 00 mg + Sodium Chloride 0.9% IV 94 mL heparin No Notes: Memoria additive 1-20 Total l 25,000 unit 19:50: Concentrat Barber [250 00 ion = 50 unit/hr] + unit/ ml Premix Total Diluent volume = Sodium 500 ml Chloride Send Med 0.45% 500 Request 2 mL hours prior to next bag Sodium No 1,000 mL, Memori a Chloride 1-20 Rate: 35 l 0.9% IV 19:50: ml/hr, Barber 1,000 mL 00 Infuse over: 28.6 hr, Route: IV, Dosing Weight 74 kg, Total Volume: 1,000, Start date: 11/19/20 13:50: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, Duration: 2 day, Stop date: 11/21/20 13:49: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, 1.94, m2, 0 Metoprolol No Notes: Memor ia Succinate 1-20 (Same as: l ER 50 mg 15:00: Toprol XL) Her faust oral 00 May split tablet, tab, but extended do not release crush. Metoprolol No Notes: Memor ia Succinate 1-20 [...] Total Volume: 250, Start Date: 11/19/20 8:29: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, Duration: 1 day, Stop date: 11/20/20 8:28: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, Replace Every: 24 hr, 0 Sodium No 250 mL, Memoria Chloride 1-20 Rate: To l 0.9% 14:29: prime line Talmage (titrate) 00 and flush 250 mL remaining blood products., Dosing Weight 74, kg, Route: IV, Total Volume: 250, Start Date: 11/19/20 8:29: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, Duration: 1 day, Stop date: 11/20/20 8:28: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, Replace Every: 24 hr, 0 atorvastati No Notes: Abisai obdulio n 1-20 (Same As: l 03:00: Lipitor) atorvastati No Notes: Abisai obdulio n 1-20 (Same As: l 03:00: Lipitor) Amlodipine No Notes: Memor ia 1-19 (Same as: l 15:00: Norvasc) Plavix No Notes: Memoria 1-19 (Same As: l 15:00: Plavix) Finasteride No Notes: Abisai obdulio 1-19 (Same as: l 15:00: Proscar) "Do Not Crush" Women of childbeari ng age should not touch or handle broken tablets Hazardous Drug Group 3:Reproduc tive risk Hazardous Drug -- Refer to safe handling procedure PPE Matrix Hydrochloro No 1 tab, Abisai obdulio thiazide 25 - Route: PO, l MG / 15:00: Drug Form: Barber Lisinopril 00 TAB, 20 MG Oral Dosing Tablet Weight 74, kg, Daily, Start date: 11/18/20 9:00: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, Duration: 30 day, Stop date: 12/17/20 9:00: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 tamsulosin No Notes: Memor ia 1-19 (Same As: l 15:00: Flomax) "Do Not Crush" Amlodipine No Notes: Memor ia 1-19 (Same as: l 15:00: Norvasc) Plavix No Notes: Memoria 1-19 (Same As: l 15:00: Plavix) Finasteride No Notes: Abisai obdulio 1-19 (Same as: l 15:00: Proscar) Barber 00 "Do Not Crush" Women of childbeari ng age should not touch or handle broken tablets Hazardous Drug Group 3:Reproduc tive risk Hazardous Drug -- Refer to safe handling procedure PPE Matrix Hydrochloro No 1 tab, Abisai obdulio thiazide 25 1-19 Route: PO, l MG / 15:00: Drug Form: Barber Lisinopril 00 TAB, 20 MG Oral Dosing Tablet Weight 74, kg, Daily, Start date: 11/18/20 9:00: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, Duration: 30 day, Stop date: 12/17/20 9:00: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 tamsulosin No Notes: Memor ia 11-18 (Same As: l 15:00: Flomax) Barber 00 "Do Not Crush" Levaquin No Notes: Do Abisai obdulio 11-18 not give l 14:00: w/antacids Barber 00 , dairy pdt & minerals Take 1 hr before or 2 hr after dairy pdt (Same as:Levaqui n) Levaquin No Notes: Do Abisai obdulio 11-18 not give l 14:00: w/antacids Talmage 00 , dairy pdt & minerals Take 1 hr before or 2 hr after dairy pdt (Same as:Levaqui n) Levaquin No Notes: Memoria - (Same l 08:00: as:Levaqui Talmage 00 n) Levaquin No Notes: Memoria - (Same l 08:00: as:Levaqui Barber 00 n) Saline No Notes: Memoria Flush 0.9% 11-18 Same as: l 03:00: BD [place] 00 Posiflush Sterile Saline No Notes: Memoria Flush 0.9% 11-18 Same as: l 03:00: BD Barber 00 Posiflush Sterile AMIODarone No 2 mg/ml. Me moria 900 mg in 11-18 Use Glass l D5W 500 ml 02:48: Bottle or He rmann IV 900 mg + 00 Non PVC Dextrose 5% Bag "Use in Water IV 0.22 482 mL micron in-line filter" MEDICATION WASTE Product Size: 900 mg Product Wasted: ___ mg AMIODarone No 2 mg/ml. Me moria 900 mg in 11-18 Use Glass l D5W 500 ml 02:48: Bottle or He rmann IV 900 mg + 00 Non PVC Dextrose 5% Bag "Use in Water IV 0.22 482 mL micron in-line filter" MEDICATION WASTE Product Size: 900 mg Product Wasted: ___ mg Amiodarone No 2 mg/ml. In moria 11-18 "Recommend l 02:47: ation: Use Talmage 00 an in-line filter during administra tion for continuous infusions to reduce the incidence of phlebitis" (Same as Codarone) MEDICATION WASTE Product Size: 150 mg Product Wasted: ___ mg Amiodarone No 2 mg/ml. In moria 11-18 "Recommend l 02:47: ation: Use Barber 00 an in-line filter during administra tion for continuous infusions to reduce the incidence of phlebitis" (Same as Codarone) MEDICATION WASTE Product Size: 150 mg Product Wasted: ___ mg Acetaminoph No Notes: Do M emoria en 11-18 not exceed l 02:45: 4 gm/day. Talmage 00 (Same as: Tylenol) Ondansetron No Notes: Abisai obdulio 11-18 (Same as: l 02:45: Zofran Barber 00 ODT) Saline No Notes: Memoria Flush 0.9% 11-18 Same as: l 02:45: BD Talmage 00 Posiflush Sterile Acetaminoph No Notes: Do M emoria en 11-18 not exceed l 02:45: 4 gm/day. Barber 00 (Same as: Tylenol) Ondansetron No Notes: Abisai obdulio 11-18 (Same as: l 02:45: Zofran Barber 00 ODT) Saline No Notes: Memoria Flush 0.9% 11-18 Same as: l 02:45: BD Talmage 00 Posiflush Sterile Heparin - No Route: Memori a one time 11-18 IVP, Drug l bolus for 02:35: form: INJ, He rmann DVT/PE 00 ONCE, Dosing Weight 74, kg, Priority: STAT, Start date: 11/17/20 20:35: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, Stop date: 11/17/20 20:35: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, 0 Heparin 80 No Route: Memor ia unit/kg 1-19 IVP, PRN, l Bolus 02:35: 5,900 Barber (Heparin 00 unit, 5.9 Dosing mL, Drug Weight) form: INJ, PRN, Heparin Protocol, Start date: 11/17/20 20:35: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 Stop date: 12/17/20 20:34: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, 30 day, 0 Heparin 40 No Route: Memor ia unit/kg - IVP, PRN, l Bolus 02:35: 3,000 Barber (Heparin 00 unit, 3 Dosing mL, Drug Weight) form: INJ, PRN, Heparin Protocol, Start date: 11/17/20 20:35: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 Stop date: 12/17/20 20:34: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, 30 day, 0 heparin No Notes: Memoria [place] [address] unit 02:35: Concentrat H ermann [18 00 ion = 50 unit/kg/hr] unit/ ml + Premix Total Diluent volume = Sodium 500 ml Chloride Send Med 0.45% 500 Request 2 mL hours prior to next bag Heparin - No Route: Memori a one time - IVP, Drug l bolus for 02:35: form: INJ, He rmann DVT/PE 00 ONCE, Dosing Weight 74, kg, Priority: STAT, Start date: 11/17/20 20:35: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, Stop date: 11/17/20 20:35: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, 0 Heparin 80 No Route: Memor ia unit/kg - IVP, PRN, l Bolus 02:35: 5,900 Barber (Heparin 00 unit, 5.9 Dosing mL, Drug Weight) form: INJ, PRN, Heparin Protocol, Start date: 11/17/20 20:35: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 Stop date: 12/17/20 20:34: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, 30 day, 0 Heparin 40 No Route: Memor ia unit/kg -19 IVP, PRN, l Bolus 02:35: 3,000 Talmage (Heparin 00 unit, 3 Dosing mL, Drug Weight) form: INJ, PRN, Heparin Protocol, Start date: 11/17/20 20:35: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 Stop date: 12/17/20 20:34: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, 30 day, 0 heparin No Notes: Memoria additive 1-19 [place] [address]87 unit 02:35: Concentrat H ermann [18 00 ion = 50 unit/kg/hr] unit/ ml + Premix Total Diluent volume = Sodium 500 ml Chloride Send Med 0.45% 500 Request 2 mL hours prior to next bag Digoxin No 0.5 mg, Memoria 1-19 Route: l 02:34: IVP, ONCE, Dosing Weight 74, kg, Priority: STAT, Start date: 11/17/20 20:34: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, Stop date: 11/17/20 20:34: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 Digoxin No 0.5 mg, Memoria - Route: l 02:34: IVP, ONCE, Dosing Weight 74, kg, Priority: STAT, Start date: 11/17/20 20:34: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, Stop date: 11/17/20 20:34: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 Ceftriaxone No Notes: Abisai obdulio 1-19 (Same As: l 00:32: Rocephin). Use with 100 mL NS and infuse over 30 min MEDICATION WASTE Product Size: 1000 mg Product Wasted: ___ mg Azithromyci No Notes: Abisai obdulio n 1-19 (Same As: l 00:32: Zithromax Talmage 00 IV) Ceftriaxone No Notes: Abisai obdulio 1-19 (Same As: l 00:32: Rocephin). Use with 100 mL NS and infuse over 30 min MEDICATION WASTE Product Size: 1000 mg Product Wasted: ___ mg Azithromyci No Notes: Abisai obdulio n 1-19 (Same As: l 00:32: Zithromax Talmage 00 IV) Saline No Notes: Memoria Flush 0.9% -18 Same as: l 20:05: BD Posiflush Sterile Saline No Notes: Memoria Flush 0.9% 1-18 Same as: l 20:05: BD Posiflush Sterile clopidogrel 2019-10 Yes 75 mg = 1 M emoria 75 MG Oral 0-16 tab, PO, l Tablet 16:05: Daily, # Talmage [Plavix] 00 90 tab, 2 Refill(s), Pharmacy: [facility], 177.8, cm, 08/15/20 10:35:00 CDT, Height, 80, kg, 08/15/20 10:35:00 CDT, Weight clopidogrel 2019-10 Yes 75 mg = 1 M emoria 75 MG Oral 0-16 tab, PO, l Tablet 16:05: Daily, # Talmage [Plavix] 00 90 tab, 2 Refill(s), Pharmacy: [facility], 177.8, cm, 08/15/20 10:35:00 CDT, Height, 80, kg, 08/15/20 10:35:00 CDT, Weight atorvastati Yes 20 mg = 1 M emoria n 20 mg 7-15 tab, PO, l oral tablet 15:23: Bedtime, # Talmage 00 90 tab, 2 Refill(s), Pharmacy: [facility], 180.34, cm, 01/04/20 12:00: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, Height, 90, kg, 01/04/20 12:00: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, Weight atorvastati Yes 20 mg = 1 M emoria n 20 mg 7-15 tab, PO, l oral tablet 15:23: Bedtime, # Talmage 00 90 tab, 2 Refill(s), Pharmacy: [facility], 180.34, cm, 01/04/20 12:00: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, Height, 90, kg, 01/04/20 12:00: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, Weight atorvastati 2018-10 Yes 20 mg = 1 M emoria n 20 mg 0-11 tab, PO, l oral tablet 14:57: Bedtime, # Talmage 46 90 tab, 2 Refill(s), Pharmacy: [place] [address] atorvastati 2018-10 Yes 20 mg = 1 M emoria n 20 mg 0-11 tab, PO, l oral tablet 14:57: Bedtime, # Talmage 46 90 tab, 2 Refill(s), Pharmacy: [facility] finasteride 2016-10 Yes 5mg Take 5 mg M [facility] (PROSCAR) 5 2-[address] mg tablet 00:00: daily. Hospit a 00 l lisinopril- 2016-10 Yes 20{tbl} Take 20-25 [facility] hydrochloro 2-[address] thiazide [facility]: [facility] (PRINZIDE,Z 00 daily. l ESTORETIC) 20-25 mg per tablet amLODIPine 2016-10 Yes 5mg Take 5 mg Me thodi (NORVASC) 5 2-[address] mg tablet 00:00: daily. Hospit a l zolpidem CR 2016-10 Yes 10mg Take 10 mg [facility] (AMBIEN CR) 2-[address] 12.5 MG CR 00:00: daily. Hospi ta tablet 00 l finasteride 2016-10 Yes 5mg Take 5 mg M [facility] (PROSCAR) 5 2-[address] mg tablet 00:00: daily. Hospit a 00 l amLODIPine 2016-10 Yes 5mg Take 5 mg Me thodi (NORVASC) 5 2-[address] mg tablet 00:00: daily. Hospit a 00 l zolpidem CR 2016-10 Yes 10mg Take 10 mg [facility] (AMBIEN CR) 2-[address] 12.5 MG CR 00:00: daily. Hospi ta tablet 00 l lisinopril- 2016-10- No 20{tbl} Take 20-25 [facility] hydrochloro 2-20 02-10 tablets by s t thiazide 00:00: 00:00 [facility] (PRINZIDE,Z 00 :00 daily. l ESTORETIC) 20-25 mg per tablet atorvastati 2016-10 Yes 10mg Take 10 mg [facility] (LIPITOR) 2-[address] 10 MG 00:00: daily. Hospita tablet 00 l atorvastati 2016-10 Yes 10mg Take 10 mg [facility] (LIPITOR) 2-[address] 10 MG 00:00: daily. Hospita tablet 00 l Zolpidem Zolpidem Yes [place] 1 tablet C ommon Tartrate Tartrate Bajaw at bedtime [facility] needed - [facility] Levothyroxi Levothyroxi No QD Levothyrox ne Sodium ne Sodium ine Sodium 75 MCG 75 MCG 75 MCG Atorvastati Atorvastati No Atorvastat n Calcium n Calcium in Calcium 20 MG 20 MG 20 MG Levocetiriz Levocetiriz No 1{table QD Levocetiri ine ine t_in_th zine Dihydrochlo Dihydrochlo e_eveni Dihydrochl ride 5 MG ride 5 MG ng} oride 5 MG Atorvastati Atorvastati No 1{table QD Atorvastat n Calcium n Calcium t} in Calcium 20 MG 20 MG 20 MG Bumetanide Bumetanide No Bumetanide 1 MG 1 MG 1 MG Entresto Entresto No 1{table BID Entresto 24-26 MG 24-26 MG t} 24-26 MG hydrOXYzine hydrOXYzine No BID hydrOXYzin HCl 10 MG HCl 10 MG e HCl 10 MG Tamsulosin Tamsulosin No 1{capsu QD Tamsulosin HCl 0.4 MG HCl 0.4 MG le} HCl 0.4 MG Fluticasone Fluticasone No 1{spray QD Fluticason Propionate Propionate _in_eac e 50 MCG/ACT 50 MCG/ACT h_nostr Propionate il} 50 MCG/ACT Xarelto 20 Xarelto 20 No 1{table QD Xarelto 20 MG MG t_with_ MG food} hydrOXYzine hydrOXYzine No BID hydrOXYzin HCl 10 MG HCl 10 MG e HCl 10 MG Atorvastati Atorvastati No Atorvastat n Calcium n Calcium in Calcium 20 MG 20 MG 20 MG Levocetiriz Levocetiriz No 1{table QD Levocetiri ine ine t_in_th zine Dihydrochlo Dihydrochlo e_eveni Dihydrochl ride 5 MG ride 5 MG ng} oride 5 MG Atorvastati Atorvastati No 1{table QD Atorvastat n Calcium n Calcium t} in Calcium 20 MG 20 MG 20 MG Bumetanide Bumetanide No Bumetanide 1 MG 1 MG 1 MG Fluticasone Fluticasone No 1{spray QD Fluticason Propionate Propionate _in_eac e 50 MCG/ACT 50 MCG/ACT h_nostr Propionate il} 50 MCG/ACT Tamsulosin Tamsulosin No 1{capsu QD Tamsulosin HCl 0.4 MG HCl 0.4 MG le} HCl 0.4 MG Levothyroxi Levothyroxi No QD Levothyrox ne Sodium ne Sodium ine Sodium 75 MCG 75 MCG 75 MCG Entresto Entresto No 1{table BID Entresto 24-26 MG 24-26 MG t} 24-26 MG Xarelto 20 Xarelto 20 No 1{table QD Xarelto 20 MG MG t_with_ MG food} hydrOXYzine hydrOXYzine No BID hydrOXYzin HCl 10 MG HCl 10 MG e HCl 10 MG Atorvastati Atorvastati No Atorvastat n Calcium n Calcium in Calcium 20 MG 20 MG 20 MG Levocetiriz Levocetiriz No 1{table QD Levocetiri ine ine t_in_th zine Dihydrochlo Dihydrochlo e_eveni Dihydrochl ride 5 MG ride 5 MG ng} oride 5 MG Atorvastati Atorvastati No 1{table QD Atorvastat n Calcium n Calcium t} in Calcium 20 MG 20 MG 20 MG Bumetanide Bumetanide No Bumetanide 1 MG 1 MG 1 MG Fluticasone Fluticasone No 1{spray QD Fluticason Propionate Propionate _in_eac e 50 MCG/ACT 50 MCG/ACT h_nostr Propionate il} 50 MCG/ACT Tamsulosin Tamsulosin No 1{capsu QD Tamsulosin HCl 0.4 MG HCl 0.4 MG le} HCl 0.4 MG Levothyroxi Levothyroxi No QD Levothyrox ne Sodium ne Sodium ine Sodium 75 MCG 75 MCG 75 MCG Entresto Entresto No 1{table BID Entresto 24-26 MG 24-26 MG t} 24-26 MG Xarelto 20 Xarelto 20 No 1{table QD Xarelto 20 MG MG t_with_ MG food} hydrOXYzine hydrOXYzine No BID hydrOXYzin HCl 10 MG HCl 10 MG e HCl 10 MG Atorvastati Atorvastati No Atorvastat n Calcium n Calcium in Calcium 20 MG 20 MG 20 MG Levocetiriz Levocetiriz No 1{table QD Levocetiri ine ine t_in_th zine Dihydrochlo Dihydrochlo e_eveni Dihydrochl ride 5 MG ride 5 MG ng} oride 5 MG Atorvastati Atorvastati No 1{table QD Atorvastat n Calcium n Calcium t} in Calcium 20 MG 20 MG 20 MG Bumetanide Bumetanide No Bumetanide 1 MG 1 MG 1 MG Fluticasone Fluticasone No 1{spray QD Fluticason Propionate Propionate _in_eac e 50 MCG/ACT 50 MCG/ACT h_nostr Propionate il} 50 MCG/ACT Tamsulosin Tamsulosin No 1{capsu QD Tamsulosin HCl 0.4 MG HCl 0.4 MG le} HCl 0.4 MG Levothyroxi Levothyroxi No QD Levothyrox ne Sodium ne Sodium ine Sodium 75 MCG 75 MCG 75 MCG Entresto Entresto No 1{table BID Entresto 24-26 MG 24-26 MG t} 24-26 MG Xarelto 20 Xarelto 20 No 1{table QD Xarelto 20 MG MG t_with_ MG food} Finasteride Finasteride No 1{table QD Finasterid 5 MG 5 MG t} e 5 MG Bumetanide Bumetanide No Bumetanide 1 MG 1 MG 1 MG metOLazone metOLazone No 1{table QD metOLazone 2.5 MG 2.5 MG t} 2.5 MG Atorvastati Atorvastati No 1{table QD Atorvastat n Calcium n Calcium t} in Calcium 20 MG 20 MG 20 MG Xarelto 20 Xarelto 20 No 1{table QD Xarelto 20 MG MG t_with_ MG food} Fluticasone Fluticasone No 1{spray QD Fluticason Propionate Propionate _in_eac e 50 MCG/ACT 50 MCG/ACT h_nostr Propionate il} 50 MCG/ACT Levocetiriz Levocetiriz No 1{table QD Levocetiri ine ine t_in_th zine Dihydrochlo Dihydrochlo e_eveni Dihydrochl ride 5 MG ride 5 MG ng} oride 5 MG Zolpidem Zolpidem No 1{table QD Zolpidem Tartrate 10 Tartrate 10 t_at_be Tartrate MG MG dtime_a 10 MG s_neede d} Amiodarone Amiodarone No 1{table QD Amiodarone HCl 200 MG HCl 200 MG t} HCl 200 MG Tamsulosin Tamsulosin No 1{capsu QD Tamsulosin HCl 0.4 MG HCl 0.4 MG le} HCl 0.4 MG Clotrimazol Clotrimazol No 1{appli BID Clotrimazo e 1 % e 1 % cation} le 1 % Metoprolol Metoprolol No 1{table QD Metoprolol Succinate Succinate t} Succinate ER 100 MG ER 100 MG ER 100 MG Levothyroxi Levothyroxi No QD Levothyrox ne Sodium ne Sodium ine Sodium 75 MCG 75 MCG 75 MCG Fluticasone Fluticasone No 1{spray QD Fluticason Propionate Propionate _in_eac e 50 MCG/ACT 50 MCG/ACT h_nostr Propionate il} 50 MCG/ACT Atorvastati Atorvastati No 1{table QD Atorvastat n Calcium n Calcium t} in Calcium 20 MG 20 MG 20 MG metOLazone metOLazone No 1{table QD metOLazone 2.5 MG 2.5 MG t} 2.5 MG Xyzal Xyzal No Xyzal Clotrimazol Clotrimazol No 1{appli BID Clotrimazo e 1 % e 1 % cation} le 1 % Metoprolol Metoprolol No 1{table QD Metoprolol Succinate Succinate t} Succinate ER 25 MG ER 25 MG ER 25 MG Pacerone Pacerone No 1{table BID Pacerone 200 MG 200 MG t} 200 MG Bumetanide Bumetanide No Bumetanide 1 MG 1 MG 1 MG Xarelto 20 Xarelto 20 No 1{table QD Xarelto 20 MG MG t_with_ MG food} Tamsulosin Tamsulosin No 1{capsu QD Tamsulosin HCl 0.4 MG HCl 0.4 MG le} HCl 0.4 MG Entresto Entresto No 1{table BID Entresto 97-103 MG 97-103 MG t} 97-103 MG Levothyroxi Levothyroxi No QD Levothyrox ne Sodium ne Sodium ine Sodium 88 MCG 88 MCG 88 MCG Spironolact Spironolact No Spironolac one 25 MG one 25 MG tone 25 MG metOLazone metOLazone No 1{table QD metOLazone 2.5 MG 2.5 MG t} 2.5 MG Levocetiriz Levocetiriz No 1{table QD Levocetiri ine ine t_in_th zine Dihydrochlo Dihydrochlo e_eveni Dihydrochl ride 5 MG ride 5 MG ng} oride 5 MG Fluticasone Fluticasone No 1{spray QD Propionate Propionate _in_eac 50 MCG/ACT 50 MCG/ACT h_nostr il} Entresto Entresto No 1{table BID 97-103 MG 97-103 MG t} metOLazone metOLazone No 1{table QD 2.5 MG 2.5 MG t} Metoprolol Metoprolol No 1{table QD Succinate Succinate t} ER 25 MG ER 25 MG Clotrimazol Clotrimazol No 1{appli BID e 1 % e 1 % cation} Pacerone Pacerone No 1{table BID 200 MG 200 MG t} Bumetanide Bumetanide No 1 MG 1 MG Atorvastati Atorvastati No 1{table QD n Calcium n Calcium t} 20 MG 20 MG Xyzal Xyzal No Levothyroxi Levothyroxi No QD ne Sodium ne Sodium 88 MCG 88 MCG metOLazone metOLazone No 1{table QD 2.5 MG 2.5 MG t} Spironolact Spironolact No one 25 MG one 25 MG Xarelto 20 Xarelto 20 No 1{table QD MG MG t_with_ food} Levocetiriz Levocetiriz No 1{table QD ine ine t_in_th Dihydrochlo Dihydrochlo e_eveni ride 5 MG ride 5 MG ng} metOLazone metOLazone No 1{table QD metOLazone 2.5 MG 2.5 MG t} 2.5 MG Atorvastati Atorvastati No 1{table QD Atorvastat n Calcium n Calcium t} in Calcium 20 MG 20 MG 20 MG Xyzal Xyzal No Xyzal Clotrimazol Clotrimazol No 1{appli BID Clotrimazo e 1 % e 1 % cation} le 1 % Metoprolol Metoprolol No 1{table QD Metoprolol Succinate Succinate t} Succinate ER 25 MG ER 25 MG ER 25 MG Bumetanide Bumetanide No Bumetanide 1 MG 1 MG 1 MG Xarelto 20 Xarelto 20 No 1{table QD Xarelto 20 MG MG t_with_ MG food} Levocetiriz Levocetiriz No 1{table QD Levocetiri ine ine t_in_th zine Dihydrochlo Dihydrochlo e_eveni Dihydrochl ride 5 MG ride 5 MG ng} oride 5 MG Entresto Entresto No 1{table BID Entresto 97-103 MG 97-103 MG t} 97-103 MG Levothyroxi Levothyroxi No QD Levothyrox ne Sodium ne Sodium ine Sodium 88 MCG 88 MCG 88 MCG Pacerone Pacerone No 1{table BID Pacerone 200 MG 200 MG t} 200 MG metOLazone metOLazone No 1{table QD metOLazone 2.5 MG 2.5 MG t} 2.5 MG Fluticasone Fluticasone No 1{spray QD Fluticason Propionate Propionate _in_eac e 50 MCG/ACT 50 MCG/ACT h_nostr Propionate il} 50 MCG/ACT Fluticasone Fluticasone No 1{spray QD Fluticason Propionate Propionate _in_eac e 50 MCG/ACT 50 MCG/ACT h_nostr Propionate il} 50 MCG/ACT Entresto Entresto No 1{table BID Entresto 97-103 MG 97-103 MG t} 97-103 MG metOLazone metOLazone No 1{table QD metOLazone 2.5 MG 2.5 MG t} 2.5 MG Metoprolol Metoprolol No 1{table QD Metoprolol Succinate Succinate t} Succinate ER 25 MG ER 25 MG ER 25 MG Clotrimazol Clotrimazol No 1{appli BID Clotrimazo e 1 % e 1 % cation} le 1 % Bumetanide Bumetanide No Bumetanide 1 MG 1 MG 1 MG Atorvastati Atorvastati No 1{table QD Atorvastat n Calcium n Calcium t} in Calcium 20 MG 20 MG 20 MG Xyzal Xyzal No Xyzal Levothyroxi Levothyroxi No QD Levothyrox ne Sodium ne Sodium ine Sodium 88 MCG 88 MCG 88 MCG metOLazone metOLazone No 1{table QD metOLazone 2.5 MG 2.5 MG t} 2.5 MG Pacerone Pacerone No 1{table BID Pacerone 200 MG 200 MG t} 200 MG Xarelto 20 Xarelto 20 No 1{table QD Xarelto 20 MG MG t_with_ MG food} Levocetiriz Levocetiriz No 1{table QD Levocetiri ine ine t_in_th zine Dihydrochlo Dihydrochlo e_eveni Dihydrochl ride 5 MG ride 5 MG ng} oride 5 MG metOLazone metOLazone No 1{table QD 2.5 MG 2.5 MG t} Entresto Entresto No 1{table BID 97-103 MG 97-103 MG t} Metoprolol Metoprolol No 1{table QD Succinate Succinate t} ER 25 MG ER 25 MG Clotrimazol Clotrimazol No 1{appli BID e 1 % e 1 % cation} Bumetanide Bumetanide No 1 MG 1 MG Atorvastati Atorvastati No 1{table QD n Calcium n Calcium t} 20 MG 20 MG Xyzal Xyzal No Levocetiriz Levocetiriz No 1{table QD ine ine t_in_th Dihydrochlo Dihydrochlo e_eveni ride 5 MG ride 5 MG ng} metOLazone metOLazone No 1{table QD 2.5 MG 2.5 MG t} Levothyroxi Levothyroxi No QD ne Sodium ne Sodium 88 MCG 88 MCG Pacerone Pacerone No 1{table BID 200 MG 200 MG t} Xarelto 20 Xarelto 20 No 1{table QD MG MG t_with_ food} Fluticasone Fluticasone No 1{spray QD Propionate Propionate _in_eac 50 MCG/ACT 50 MCG/ACT h_nostr il} metOLazone metOLazone No 1{table QD metOLazone 2.5 MG 2.5 MG t} 2.5 MG Entresto Entresto No 1{table BID Entresto 97-103 MG 97-103 MG t} 97-103 MG Metoprolol Metoprolol No 1{table QD Metoprolol Succinate Succinate t} Succinate ER 25 MG ER 25 MG ER 25 MG Clotrimazol Clotrimazol No 1{appli BID Clotrimazo e 1 % e 1 % cation} le 1 % Bumetanide Bumetanide No Bumetanide 1 MG 1 MG 1 MG Atorvastati Atorvastati No 1{table QD Atorvastat n Calcium n Calcium t} in Calcium 20 MG 20 MG 20 MG Xyzal Xyzal No Xyzal Levocetiriz Levocetiriz No 1{table QD Levocetiri ine ine t_in_th zine Dihydrochlo Dihydrochlo e_eveni Dihydrochl ride 5 MG ride 5 MG ng} oride 5 MG metOLazone metOLazone No 1{table QD metOLazone 2.5 MG 2.5 MG t} 2.5 MG Levothyroxi Levothyroxi No QD Levothyrox ne Sodium ne Sodium ine Sodium 88 MCG 88 MCG 88 MCG Pacerone Pacerone No 1{table BID Pacerone 200 MG 200 MG t} 200 MG Xarelto 20 Xarelto 20 No 1{table QD Xarelto 20 MG MG t_with_ MG food} Fluticasone Fluticasone No 1{spray QD Fluticason Propionate Propionate _in_eac e 50 MCG/ACT 50 MCG/ACT h_nostr Propionate il} 50 MCG/ACT metOLazone metOLazone No 1{table QD metOLazone 2.5 MG 2.5 MG t} 2.5 MG Entresto Entresto No 1{table BID Entresto 97-103 MG 97-103 MG t} 97-103 MG Metoprolol Metoprolol No 1{table QD Metoprolol Succinate Succinate t} Succinate ER 25 MG ER 25 MG ER 25 MG Clotrimazol Clotrimazol No 1{appli BID Clotrimazo e 1 % e 1 % cation} le 1 % Bumetanide Bumetanide No Bumetanide 1 MG 1 MG 1 MG Atorvastati Atorvastati No 1{table QD Atorvastat n Calcium n Calcium t} in Calcium 20 MG 20 MG 20 MG Xyzal Xyzal No Xyzal Levocetiriz Levocetiriz No 1{table QD Levocetiri ine ine t_in_th zine Dihydrochlo Dihydrochlo e_eveni Dihydrochl ride 5 MG ride 5 MG ng} oride 5 MG metOLazone metOLazone No 1{table QD metOLazone 2.5 MG 2.5 MG t} 2.5 MG Levothyroxi Levothyroxi No QD Levothyrox ne Sodium ne Sodium ine Sodium 88 MCG 88 MCG 88 MCG Pacerone Pacerone No 1{table BID Pacerone 200 MG 200 MG t} 200 MG Xarelto 20 Xarelto 20 No 1{table QD Xarelto 20 MG MG t_with_ MG food} Fluticasone Fluticasone No 1{spray QD Fluticason Propionate Propionate _in_eac e 50 MCG/ACT 50 MCG/ACT h_nostr Propionate il} 50 MCG/ACT metOLazone metOLazone No 1{table QD metOLazone 2.5 MG 2.5 MG t} 2.5 MG Entresto Entresto No 1{table BID Entresto 97-103 MG 97-103 MG t} 97-103 MG Metoprolol Metoprolol No 1{table QD Metoprolol Succinate Succinate t} Succinate ER 25 MG ER 25 MG ER 25 MG Clotrimazol Clotrimazol No 1{appli BID Clotrimazo e 1 % e 1 % cation} le 1 % Bumetanide Bumetanide No Bumetanide 1 MG 1 MG 1 MG Atorvastati Atorvastati No 1{table QD Atorvastat n Calcium n Calcium t} in Calcium 20 MG 20 MG 20 MG Xyzal Xyzal No Xyzal Levocetiriz Levocetiriz No 1{table QD Levocetiri ine ine t_in_th zine Dihydrochlo Dihydrochlo e_eveni Dihydrochl ride 5 MG ride 5 MG ng} oride 5 MG metOLazone metOLazone No 1{table QD metOLazone 2.5 MG 2.5 MG t} 2.5 MG Levothyroxi Levothyroxi No QD Levothyrox ne Sodium ne Sodium ine Sodium 88 MCG 88 MCG 88 MCG Pacerone Pacerone No 1{table BID Pacerone 200 MG 200 MG t} 200 MG Xarelto 20 Xarelto 20 No 1{table QD Xarelto 20 MG MG t_with_ MG food} Fluticasone Fluticasone No 1{spray QD Fluticason Propionate Propionate _in_eac e 50 MCG/ACT 50 MCG/ACT h_nostr Propionate il} 50 MCG/ACT metOLazone metOLazone No 1{table QD metOLazone 2.5 MG 2.5 MG t} 2.5 MG Entresto Entresto No 1{table BID Entresto 97-103 MG 97-103 MG t} 97-103 MG Metoprolol Metoprolol No 1{table QD Metoprolol Succinate Succinate t} Succinate ER 25 MG ER 25 MG ER 25 MG Clotrimazol Clotrimazol No 1{appli BID Clotrimazo e 1 % e 1 % cation} le 1 % Bumetanide Bumetanide No Bumetanide 1 MG 1 MG 1 MG Atorvastati Atorvastati No 1{table QD Atorvastat n Calcium n Calcium t} in Calcium 20 MG 20 MG 20 MG Xyzal Xyzal No Xyzal Levocetiriz Levocetiriz No 1{table QD Levocetiri ine ine t_in_th zine Dihydrochlo Dihydrochlo e_eveni Dihydrochl ride 5 MG ride 5 MG ng} oride 5 MG metOLazone metOLazone No 1{table QD metOLazone 2.5 MG 2.5 MG t} 2.5 MG Levothyroxi Levothyroxi No QD Levothyrox ne Sodium ne Sodium ine Sodium 88 MCG 88 MCG 88 MCG Pacerone Pacerone No 1{table BID Pacerone 200 MG 200 MG t} 200 MG Xarelto 20 Xarelto 20 No 1{table QD Xarelto 20 MG MG t_with_ MG food} Fluticasone Fluticasone No 1{spray QD Fluticason Propionate Propionate _in_eac e 50 MCG/ACT 50 MCG/ACT h_nostr Propionate il} 50 MCG/ACT Xarelto 20 Xarelto 20 No 1{table QD Xarelto 20 MG MG t_with_ MG food} metOLazone metOLazone No 1{table QD metOLazone 2.5 MG 2.5 MG t} 2.5 MG Fluticasone Fluticasone No 1{spray QD Fluticason Propionate Propionate _in_eac e 50 MCG/ACT 50 MCG/ACT h_nostr Propionate il} 50 MCG/ACT Levocetiriz Levocetiriz No 1{table QD Levocetiri ine ine t_in_th zine Dihydrochlo Dihydrochlo e_eveni Dihydrochl ride 5 MG ride 5 MG ng} oride 5 MG Metoprolol Metoprolol No 1{table QD Metoprolol Succinate Succinate t} Succinate ER 25 MG ER 25 MG ER 25 MG Xyzal Xyzal No Xyzal Pacerone Pacerone No 1{table BID Pacerone 200 MG 200 MG t} 200 MG Tamsulosin Tamsulosin No 1{capsu QD Tamsulosin HCl 0.4 MG HCl 0.4 MG le} HCl 0.4 MG Finasteride Finasteride No 1{table QD Finasterid 5 MG 5 MG t} e 5 MG Atorvastati Atorvastati No 1{table QD Atorvastat n Calcium n Calcium t} in Calcium 20 MG 20 MG 20 MG Clotrimazol Clotrimazol No 1{appli BID Clotrimazo e 1 % e 1 % cation} le 1 % metOLazone metOLazone No 1{table QD metOLazone 2.5 MG 2.5 MG t} 2.5 MG Levothyroxi Levothyroxi No QD Levothyrox ne Sodium ne Sodium ine Sodium 88 MCG 88 MCG 88 MCG Entresto Entresto No 1{table BID Entresto 97-103 MG 97-103 MG t} 97-103 MG Bumetanide Bumetanide No Bumetanide 1 MG 1 MG 1 MG Xarelto 20 Xarelto 20 No 1{table QD MG MG t_with_ food} metOLazone metOLazone No 1{table QD 2.5 MG 2.5 MG t} Fluticasone Fluticasone No 1{spray QD Propionate Propionate _in_eac 50 MCG/ACT 50 MCG/ACT h_nostr il} Levocetiriz Levocetiriz No 1{table QD ine ine t_in_th Dihydrochlo Dihydrochlo e_eveni ride 5 MG ride 5 MG ng} Metoprolol Metoprolol No 1{table QD Succinate Succinate t} ER 25 MG ER 25 MG Xyzal Xyzal No Pacerone Pacerone No 1{table BID 200 MG 200 MG t} Tamsulosin Tamsulosin No 1{capsu QD HCl 0.4 MG HCl 0.4 MG le} Finasteride Finasteride No 1{table QD 5 MG 5 MG t} Atorvastati Atorvastati No 1{table QD n Calcium n Calcium t} 20 MG 20 MG Clotrimazol Clotrimazol No 1{appli BID e 1 % e 1 % cation} metOLazone metOLazone No 1{table QD 2.5 MG 2.5 MG t} Levothyroxi Levothyroxi No QD ne Sodium ne Sodium 88 MCG 88 MCG Entresto Entresto No 1{table BID 97-103 MG 97-103 MG t} Bumetanide Bumetanide No 1 MG 1 MG Xarelto 20 Xarelto 20 No 1{table QD Xarelto 20 MG MG t_with_ MG food} metOLazone metOLazone No 1{table QD metOLazone 2.5 MG 2.5 MG t} 2.5 MG Fluticasone Fluticasone No 1{spray QD Fluticason Propionate Propionate _in_eac e 50 MCG/ACT 50 MCG/ACT h_nostr Propionate il} 50 MCG/ACT Entresto Entresto No 1{table BID Entresto 97-103 MG 97-103 MG t} 97-103 MG Metoprolol Metoprolol No 1{table QD Metoprolol Succinate Succinate t} Succinate ER 25 MG ER 25 MG ER 25 MG Pacerone Pacerone No 1{table BID Pacerone 200 MG 200 MG t} 200 MG Xyzal Xyzal No Xyzal Levocetiriz Levocetiriz No 1{table QD Levocetiri ine ine t_in_th zine Dihydrochlo Dihydrochlo e_eveni Dihydrochl ride 5 MG ride 5 MG ng} oride 5 MG Clotrimazol Clotrimazol No 1{appli BID Clotrimazo e 1 % e 1 % cation} le 1 % Bumetanide Bumetanide No Bumetanide 1 MG 1 MG 1 MG metOLazone metOLazone No 1{table QD metOLazone 2.5 MG 2.5 MG t} 2.5 MG Tamsulosin Tamsulosin No 1{capsu QD Tamsulosin HCl 0.4 MG HCl 0.4 MG le} HCl 0.4 MG Levothyroxi Levothyroxi No QD Levothyrox ne Sodium ne Sodium ine Sodium 88 MCG 88 MCG 88 MCG Atorvastati Atorvastati No 1{table QD Atorvastat n Calcium n Calcium t} in Calcium 20 MG 20 MG 20 MG Xarelto 20 Xarelto 20 No 1{table QD Xarelto 20 MG MG t_with_ MG food} metOLazone metOLazone No 1{table QD metOLazone 2.5 MG 2.5 MG t} 2.5 MG Fluticasone Fluticasone No 1{spray QD Fluticason Propionate Propionate _in_eac e 50 MCG/ACT 50 MCG/ACT h_nostr Propionate il} 50 MCG/ACT Entresto Entresto No 1{table BID Entresto 97-103 MG 97-103 MG t} 97-103 MG Metoprolol Metoprolol No 1{table QD Metoprolol Succinate Succinate t} Succinate ER 25 MG ER 25 MG ER 25 MG Pacerone Pacerone No 1{table BID Pacerone 200 MG 200 MG t} 200 MG Xyzal Xyzal No Xyzal Levocetiriz Levocetiriz No 1{table QD Levocetiri ine ine t_in_th zine Dihydrochlo Dihydrochlo e_eveni Dihydrochl ride 5 MG ride 5 MG ng} oride 5 MG Clotrimazol Clotrimazol No 1{appli BID Clotrimazo e 1 % e 1 % cation} le 1 % Bumetanide Bumetanide No Bumetanide 1 MG 1 MG 1 MG metOLazone metOLazone No 1{table QD metOLazone 2.5 MG 2.5 MG t} 2.5 MG Tamsulosin Tamsulosin No 1{capsu QD Tamsulosin HCl 0.4 MG HCl 0.4 MG le} HCl 0.4 MG Levothyroxi Levothyroxi No QD Levothyrox ne Sodium ne Sodium ine Sodium 88 MCG 88 MCG 88 MCG Atorvastati Atorvastati No 1{table QD Atorvastat n Calcium n Calcium t} in Calcium 20 MG 20 MG 20 MG metOLazone metOLazone No 1{table QD metOLazone 2.5 MG 2.5 MG t} 2.5 MG Atorvastati Atorvastati No 1{table QD Atorvastat n Calcium n Calcium t} in Calcium 20 MG 20 MG 20 MG Fluticasone Fluticasone No 1{spray QD Fluticason Propionate Propionate _in_eac e 50 MCG/ACT 50 MCG/ACT h_nostr Propionate il} 50 MCG/ACT Xarelto 20 Xarelto 20 No 1{table QD Xarelto 20 MG MG t_with_ MG food} Metoprolol Metoprolol No 1{table QD Metoprolol Succinate Succinate t} Succinate ER 25 MG ER 25 MG ER 25 MG Xyzal Xyzal No Xyzal Clotrimazol Clotrimazol No 1{appli BID Clotrimazo e 1 % e 1 % cation} le 1 % Entresto Entresto No 1{table BID Entresto 97-103 MG 97-103 MG t} 97-103 MG Pacerone Pacerone No 1{table BID Pacerone 200 MG 200 MG t} 200 MG Tamsulosin Tamsulosin No 1{capsu QD Tamsulosin HCl 0.4 MG HCl 0.4 MG le} HCl 0.4 MG Levocetiriz Levocetiriz No 1{table QD Levocetiri ine ine t_in_th zine Dihydrochlo Dihydrochlo e_eveni Dihydrochl ride 5 MG ride 5 MG ng} oride 5 MG Levothyroxi Levothyroxi No QD Levothyrox ne Sodium ne Sodium ine Sodium 88 MCG 88 MCG 88 MCG Bumetanide Bumetanide No Bumetanide 1 MG 1 MG 1 MG metOLazone metOLazone No 1{table QD metOLazone 2.5 MG 2.5 MG t} 2.5 MG metOLazone metOLazone No 1{table QD metOLazone 2.5 MG 2.5 MG t} 2.5 MG Atorvastati Atorvastati No 1{table QD Atorvastat n Calcium n Calcium t} in Calcium 20 MG 20 MG 20 MG Fluticasone Fluticasone No 1{spray QD Fluticason Propionate Propionate _in_eac e 50 MCG/ACT 50 MCG/ACT h_nostr Propionate il} 50 MCG/ACT Xarelto 20 Xarelto 20 No 1{table QD Xarelto 20 MG MG t_with_ MG food} Metoprolol Metoprolol No 1{table QD Metoprolol Succinate Succinate t} Succinate ER 25 MG ER 25 MG ER 25 MG Xyzal Xyzal No Xyzal Clotrimazol Clotrimazol No 1{appli BID Clotrimazo e 1 % e 1 % cation} le 1 % Entresto Entresto No 1{table BID Entresto 97-103 MG 97-103 MG t} 97-103 MG Pacerone Pacerone No 1{table BID Pacerone 200 MG 200 MG t} 200 MG Tamsulosin Tamsulosin No 1{capsu QD Tamsulosin HCl 0.4 MG HCl 0.4 MG le} HCl 0.4 MG Levocetiriz Levocetiriz No 1{table QD Levocetiri ine ine t_in_th zine Dihydrochlo Dihydrochlo e_eveni Dihydrochl ride 5 MG ride 5 MG ng} oride 5 MG Levothyroxi Levothyroxi No QD Levothyrox ne Sodium ne Sodium ine Sodium 88 MCG 88 MCG 88 MCG Bumetanide Bumetanide No Bumetanide 1 MG 1 MG 1 MG metOLazone metOLazone No 1{table QD metOLazone 2.5 MG 2.5 MG t} 2.5 MG metOLazone metOLazone No 1{table QD metOLazone 2.5 MG 2.5 MG t} 2.5 MG Atorvastati Atorvastati No 1{table QD Atorvastat n Calcium n Calcium t} in Calcium 20 MG 20 MG 20 MG Fluticasone Fluticasone No 1{spray QD Fluticason Propionate Propionate _in_eac e 50 MCG/ACT 50 MCG/ACT h_nostr Propionate il} 50 MCG/ACT Xarelto 20 Xarelto 20 No 1{table QD Xarelto 20 MG MG t_with_ MG food} Metoprolol Metoprolol No 1{table QD Metoprolol Succinate Succinate t} Succinate ER 25 MG ER 25 MG ER 25 MG Xyzal Xyzal No Xyzal Tamsulosin Tamsulosin No Tamsulosin HCl 0.4 MG HCl 0.4 MG HCl 0.4 MG Entresto Entresto No 1{table BID Entresto 97-103 MG 97-103 MG t} 97-103 MG Pacerone Pacerone No 1{table BID Pacerone 200 MG 200 MG t} 200 MG Levocetiriz Levocetiriz No 1{table QD Levocetiri ine ine t_in_th zine Dihydrochlo Dihydrochlo e_eveni Dihydrochl ride 5 MG ride 5 MG ng} oride 5 MG Clotrimazol Clotrimazol No 1{appli BID Clotrimazo e 1 % e 1 % cation} le 1 % Levothyroxi Levothyroxi No QD Levothyrox ne Sodium ne Sodium ine Sodium 88 MCG 88 MCG 88 MCG Bumetanide Bumetanide No Bumetanide 1 MG 1 MG 1 MG metOLazone metOLazone No 1{table QD metOLazone 2.5 MG 2.5 MG t} 2.5 MG metOLazone metOLazone No 1{table QD metOLazone 2.5 MG 2.5 MG t} 2.5 MG Atorvastati Atorvastati No 1{table QD Atorvastat n Calcium n Calcium t} in Calcium 20 MG 20 MG 20 MG Fluticasone Fluticasone No 1{spray QD Fluticason Propionate Propionate _in_eac e 50 MCG/ACT 50 MCG/ACT h_nostr Propionate il} 50 MCG/ACT Xarelto 20 Xarelto 20 No 1{table QD Xarelto 20 MG MG t_with_ MG food} Pacerone Pacerone No 1{table BID Pacerone 200 MG 200 MG t} 200 MG Xyzal Xyzal No Xyzal Metoprolol Metoprolol No 1{table QD Metoprolol Succinate Succinate t} Succinate ER 25 MG ER 25 MG ER 25 MG Clotrimazol Clotrimazol No 1{appli BID Clotrimazo e 1 % e 1 % cation} le 1 % Entresto Entresto No 1{table BID Entresto 97-103 MG 97-103 MG t} 97-103 MG Bumetanide Bumetanide No Bumetanide 1 MG 1 MG 1 MG metOLazone metOLazone No 1{table QD metOLazone 2.5 MG 2.5 MG t} 2.5 MG Levocetiriz Levocetiriz No 1{table QD Levocetiri ine ine t_in_th zine Dihydrochlo Dihydrochlo e_eveni Dihydrochl ride 5 MG ride 5 MG ng} oride 5 MG Levothyroxi Levothyroxi No QD Levothyrox ne Sodium ne Sodium ine Sodium 88 MCG 88 MCG 88 MCG Tamsulosin Tamsulosin No Tamsulosin HCl 0.4 MG HCl 0.4 MG HCl 0.4 MG metOLazone metOLazone No 1{table QD metOLazone 2.5 MG 2.5 MG t} 2.5 MG Atorvastati Atorvastati No 1{table QD Atorvastat n Calcium n Calcium t} in Calcium 20 MG 20 MG 20 MG Fluticasone Fluticasone No 1{spray QD Fluticason Propionate Propionate _in_eac e 50 MCG/ACT 50 MCG/ACT h_nostr Propionate il} 50 MCG/ACT Xarelto 20 Xarelto 20 No 1{table QD Xarelto 20 MG MG t_with_ MG food} Pacerone Pacerone No 1{table BID Pacerone 200 MG 200 MG t} 200 MG Xyzal Xyzal No Xyzal Metoprolol Metoprolol No 1{table QD Metoprolol Succinate Succinate t} Succinate ER 25 MG ER 25 MG ER 25 MG Clotrimazol Clotrimazol No 1{appli BID Clotrimazo e 1 % e 1 % cation} le 1 % Entresto Entresto No 1{table BID Entresto 97-103 MG 97-103 MG t} 97-103 MG Bumetanide Bumetanide No Bumetanide 1 MG 1 MG 1 MG metOLazone metOLazone No 1{table QD metOLazone 2.5 MG 2.5 MG t} 2.5 MG Levocetiriz Levocetiriz No 1{table QD Levocetiri ine ine t_in_th zine Dihydrochlo Dihydrochlo e_eveni Dihydrochl ride 5 MG ride 5 MG ng} oride 5 MG Levothyroxi Levothyroxi No QD Levothyrox ne Sodium ne Sodium ine Sodium 88 MCG 88 MCG 88 MCG Tamsulosin Tamsulosin No Tamsulosin HCl 0.4 MG HCl 0.4 MG HCl 0.4 MG metOLazone metOLazone No 1{table QD metOLazone 2.5 MG 2.5 MG t} 2.5 MG Atorvastati Atorvastati No 1{table QD Atorvastat n Calcium n Calcium t} in Calcium 20 MG 20 MG 20 MG Fluticasone Fluticasone No 1{spray QD Fluticason Propionate Propionate _in_eac e 50 MCG/ACT 50 MCG/ACT h_nostr Propionate il} 50 MCG/ACT Xarelto 20 Xarelto 20 No 1{table QD Xarelto 20 MG MG t_with_ MG food} Pacerone Pacerone No 1{table BID Pacerone 200 MG 200 MG t} 200 MG Xyzal Xyzal No Xyzal Metoprolol Metoprolol No 1{table QD Metoprolol Succinate Succinate t} Succinate ER 25 MG ER 25 MG ER 25 MG Clotrimazol Clotrimazol No 1{appli BID Clotrimazo e 1 % e 1 % cation} le 1 % Entresto Entresto No 1{table BID Entresto 97-103 MG 97-103 MG t} 97-103 MG Bumetanide Bumetanide No Bumetanide 1 MG 1 MG 1 MG metOLazone metOLazone No 1{table QD metOLazone 2.5 MG 2.5 MG t} 2.5 MG Levocetiriz Levocetiriz No 1{table QD Levocetiri ine ine t_in_th zine Dihydrochlo Dihydrochlo e_eveni Dihydrochl ride 5 MG ride 5 MG ng} oride 5 MG Levothyroxi Levothyroxi No QD Levothyrox ne Sodium ne Sodium ine Sodium 88 MCG 88 MCG 88 MCG Tamsulosin Tamsulosin No Tamsulosin HCl 0.4 MG HCl 0.4 MG HCl 0.4 MG Xarelto 20 Xarelto 20 No 1{table QD Xarelto 20 MG MG t_with_ MG food} Clotrimazol Clotrimazol No 1{appli BID Clotrimazo e 1 % e 1 % cation} le 1 % Fluticasone Fluticasone No 1{spray QD Fluticason Propionate Propionate _in_eac e 50 MCG/ACT 50 MCG/ACT h_nostr Propionate il} 50 MCG/ACT Pacerone Pacerone No 1{table BID Pacerone 200 MG 200 MG t} 200 MG Xyzal Xyzal No Xyzal Metoprolol Metoprolol No 1{table QD Metoprolol Succinate Succinate t} Succinate ER 25 MG ER 25 MG ER 25 MG metOLazone metOLazone No 1{table QD metOLazone 2.5 MG 2.5 MG t} 2.5 MG Levocetiriz Levocetiriz No 1{table QD Levocetiri ine ine t_in_th zine Dihydrochlo Dihydrochlo e_eveni Dihydrochl ride 5 MG ride 5 MG ng} oride 5 MG Bumetanide Bumetanide No Bumetanide 1 MG 1 MG 1 MG Atorvastati Atorvastati No 1{table QD Atorvastat n Calcium n Calcium t} in Calcium 20 MG 20 MG 20 MG Entresto Entresto No 1{table BID Entresto 97-103 MG 97-103 MG t} 97-103 MG Tamsulosin Tamsulosin No Tamsulosin HCl 0.4 MG HCl 0.4 MG HCl 0.4 MG Levothyroxi Levothyroxi No QD Levothyrox ne Sodium ne Sodium ine Sodium 88 MCG 88 MCG 88 MCG metOLazone metOLazone No 1{table QD metOLazone 2.5 MG 2.5 MG t} 2.5 MG Tamsulosin Tamsulosin No Tamsulosin HCl 0.4 MG HCl 0.4 MG HCl 0.4 MG Atorvastati Atorvastati No 1{table QD Atorvastat n Calcium n Calcium t} in Calcium 20 MG 20 MG 20 MG Clotrimazol Clotrimazol No 1{appli BID Clotrimazo e 1 % e 1 % cation} le 1 % Finasteride Finasteride No 1{table QD Finasterid 5 MG 5 MG t} e 5 MG Xyzal Xyzal No Xyzal metOLazone metOLazone No 1{table QD metOLazone 2.5 MG 2.5 MG t} 2.5 MG Pacerone Pacerone No 1{table BID Pacerone 200 MG 200 MG t} 200 MG Levothyroxi Levothyroxi No QD Levothyrox ne Sodium ne Sodium ine Sodium 88 MCG 88 MCG 88 MCG Bumetanide Bumetanide No Bumetanide 1 MG 1 MG 1 MG Levothyroxi Levothyroxi No QD Levothyrox ne Sodium ne Sodium ine Sodium 88 MCG 88 MCG 88 MCG Metoprolol Metoprolol No 1{table QD Metoprolol Succinate Succinate t} Succinate ER 25 MG ER 25 MG ER 25 MG Xarelto 20 Xarelto 20 No 1{table QD Xarelto 20 MG MG t_with_ MG food} Levocetiriz Levocetiriz No 1{table QD Levocetiri ine ine t_in_th zine Dihydrochlo Dihydrochlo e_eveni Dihydrochl ride 5 MG ride 5 MG ng} oride 5 MG metOLazone metOLazone No 1{table QD metOLazone 2.5 MG 2.5 MG t} 2.5 MG Entresto Entresto No 1{table BID Entresto 97-103 MG 97-103 MG t} 97-103 MG Fluticasone Fluticasone No 1{spray QD Fluticason Propionate Propionate _in_eac e 50 MCG/ACT 50 MCG/ACT h_nostr Propionate il} 50 MCG/ACT Tamsulosin Tamsulosin No 1{capsu QD Tamsulosin HCl 0.4 MG HCl 0.4 MG le} HCl 0.4 MG Tamsulosin Tamsulosin No Tamsulosin HCl 0.4 MG HCl 0.4 MG HCl 0.4 MG Atorvastati Atorvastati No 1{table QD Atorvastat n Calcium n Calcium t} in Calcium 20 MG 20 MG 20 MG Clotrimazol Clotrimazol No 1{appli BID Clotrimazo e 1 % e 1 % cation} le 1 % Levocetiriz Levocetiriz No 1{table QD Levocetiri ine ine t_in_th zine Dihydrochlo Dihydrochlo e_eveni Dihydrochl ride 5 MG ride 5 MG ng} oride 5 MG Pacerone Pacerone No 1{table BID Pacerone 200 MG 200 MG t} 200 MG Levothyroxi Levothyroxi No QD Levothyrox ne Sodium ne Sodium ine Sodium 88 MCG 88 MCG 88 MCG metOLazone metOLazone No 1{table QD metOLazone 2.5 MG 2.5 MG t} 2.5 MG Entresto Entresto No 1{table BID Entresto 97-103 MG 97-103 MG t} 97-103 MG Bumetanide Bumetanide No Bumetanide 1 MG 1 MG 1 MG Levothyroxi Levothyroxi No QD Levothyrox ne Sodium ne Sodium ine Sodium 88 MCG 88 MCG 88 MCG Xyzal Xyzal No Xyzal Xarelto 20 Xarelto 20 No 1{table QD Xarelto 20 MG MG t_with_ MG food} Fluticasone Fluticasone No 1{spray QD Fluticason Propionate Propionate _in_eac e 50 MCG/ACT 50 MCG/ACT h_nostr Propionate il} 50 MCG/ACT metOLazone metOLazone No 1{table QD metOLazone 2.5 MG 2.5 MG t} 2.5 MG Finasteride Finasteride No 1{table QD Finasterid 5 MG 5 MG t} e 5 MG Metoprolol Metoprolol No 1{table QD Metoprolol Succinate Succinate t} Succinate ER 25 MG ER 25 MG ER 25 MG Tamsulosin Tamsulosin No 1{capsu QD Tamsulosin HCl 0.4 MG HCl 0.4 MG le} HCl 0.4 MG Xarelto 20 Xarelto 20 No 1{table QD Xarelto 20 MG MG t_with_ MG food} Levothyroxi Levothyroxi No QD Levothyrox ne Sodium ne Sodium ine Sodium 75 MCG 75 MCG 75 MCG Levocetiriz Levocetiriz No 1{table QD Levocetiri ine ine t_in_th zine Dihydrochlo Dihydrochlo e_eveni Dihydrochl ride 5 MG ride 5 MG ng} oride 5 MG Finasteride Finasteride No 1{table QD Finasterid 5 MG 5 MG t} e 5 MG Levothyroxi Levothyroxi No QD Levothyrox ne Sodium ne Sodium ine Sodium 88 MCG 88 MCG 88 MCG Entresto Entresto No 1{table BID Entresto 97-103 MG 97-103 MG t} 97-103 MG Spironolact Spironolact No 1{table Spironolac one 25 MG one 25 MG t} tone 25 MG Tamsulosin Tamsulosin No Tamsulosin HCl 0.4 MG HCl 0.4 MG HCl 0.4 MG Pacerone Pacerone No 1{table BID Pacerone 200 MG 200 MG t} 200 MG Tamsulosin Tamsulosin No 1{capsu QD Tamsulosin HCl 0.4 MG HCl 0.4 MG le} HCl 0.4 MG Atorvastati Atorvastati No 1{table QD Atorvastat n Calcium n Calcium t} in Calcium 20 MG 20 MG 20 MG Fluticasone Fluticasone No 1{spray QD Fluticason Propionate Propionate _in_eac e 50 MCG/ACT 50 MCG/ACT h_nostr Propionate il} 50 MCG/ACT Bumetanide Bumetanide No Bumetanide 1 MG 1 MG 1 MG metOLazone metOLazone No 1{table QD metOLazone 2.5 MG 2.5 MG t} 2.5 MG metOLazone metOLazone No 1{table QD metOLazone 2.5 MG 2.5 MG t} 2.5 MG Xyzal Xyzal No Xyzal Clotrimazol Clotrimazol No 1{appli BID Clotrimazo e 1 % e 1 % cation} le 1 % Metoprolol Metoprolol No 1{table QD Metoprolol Succinate Succinate t} Succinate ER 25 MG ER 25 MG ER 25 MG Xarelto 20 Xarelto 20 No 1{table QD Xarelto 20 MG MG t_with_ MG food} Metoprolol Metoprolol No 1{table QD Metoprolol Succinate Succinate t} Succinate ER 25 MG ER 25 MG ER 25 MG Levothyroxi Levothyroxi No QD Levothyrox ne Sodium ne Sodium ine Sodium 75 MCG 75 MCG 75 MCG metOLazone metOLazone No 1{table QD metOLazone 2.5 MG 2.5 MG t} 2.5 MG Finasteride Finasteride No 1{table QD Finasterid 5 MG 5 MG t} e 5 MG Entresto Entresto No 1{table BID Entresto 97-103 MG 97-103 MG t} 97-103 MG Spironolact Spironolact No 1{table Spironolac one 25 MG one 25 MG t} tone 25 MG Tamsulosin Tamsulosin No Tamsulosin HCl 0.4 MG HCl 0.4 MG HCl 0.4 MG Pacerone Pacerone No 1{table BID Pacerone 200 MG 200 MG t} 200 MG Atorvastati Atorvastati No 1{table QD Atorvastat n Calcium n Calcium t} in Calcium 20 MG 20 MG 20 MG Levocetiriz Levocetiriz No 1{table QD Levocetiri ine ine t_in_th zine Dihydrochlo Dihydrochlo e_eveni Dihydrochl ride 5 MG ride 5 MG ng} oride 5 MG Levothyroxi Levothyroxi No QD Levothyrox ne Sodium ne Sodium ine Sodium 88 MCG 88 MCG 88 MCG metOLazone metOLazone No 1{table QD metOLazone 2.5 MG 2.5 MG t} 2.5 MG Clotrimazol Clotrimazol No 1{appli BID Clotrimazo e 1 % e 1 % cation} le 1 % Tamsulosin Tamsulosin No 1{capsu QD Tamsulosin HCl 0.4 MG HCl 0.4 MG le} HCl 0.4 MG Xyzal Xyzal No Xyzal Fluticasone Fluticasone No 1{spray QD Fluticason Propionate Propionate _in_eac e 50 MCG/ACT 50 MCG/ACT h_nostr Propionate il} 50 MCG/ACT Bumetanide Bumetanide No Bumetanide 1 MG 1 MG 1 MG Xarelto 20 Xarelto 20 No 1{table QD Xarelto 20 MG MG t_with_ MG food} Metoprolol Metoprolol No 1{table QD Metoprolol Succinate Succinate t} Succinate ER 25 MG ER 25 MG ER 25 MG Levothyroxi Levothyroxi No QD Levothyrox ne Sodium ne Sodium ine Sodium 75 MCG 75 MCG 75 MCG Atorvastati Atorvastati No Atorvastat n Calcium n Calcium in Calcium 20 MG 20 MG 20 MG Finasteride Finasteride No 1{table QD Finasterid 5 MG 5 MG t} e 5 MG Levothyroxi Levothyroxi No QD Levothyrox ne Sodium ne Sodium ine Sodium 88 MCG 88 MCG 88 MCG Entresto Entresto No 1{table BID Entresto 97-103 MG 97-103 MG t} 97-103 MG Tamsulosin Tamsulosin No Tamsulosin HCl 0.4 MG HCl 0.4 MG HCl 0.4 MG Pacerone Pacerone No 1{table BID Pacerone 200 MG 200 MG t} 200 MG Levocetiriz Levocetiriz No 1{table QD Levocetiri ine ine t_in_th zine Dihydrochlo Dihydrochlo e_eveni Dihydrochl ride 5 MG ride 5 MG ng} oride 5 MG metOLazone metOLazone No 1{table QD metOLazone 2.5 MG 2.5 MG t} 2.5 MG Fluticasone Fluticasone No 1{spray QD Fluticason Propionate Propionate _in_eac e 50 MCG/ACT 50 MCG/ACT h_nostr Propionate il} 50 MCG/ACT metOLazone metOLazone No 1{table QD metOLazone 2.5 MG 2.5 MG t} 2.5 MG Clotrimazol Clotrimazol No 1{appli BID Clotrimazo e 1 % e 1 % cation} le 1 % Tamsulosin Tamsulosin No 1{capsu QD Tamsulosin HCl 0.4 MG HCl 0.4 MG le} HCl 0.4 MG Xyzal Xyzal No Xyzal Spironolact Spironolact No 1{table QD Spironolac one 25 MG one 25 MG t} tone 25 MG Bumetanide Bumetanide No Bumetanide 1 MG 1 MG 1 MG Fluticasone Fluticasone No 1{spray QD Fluticason Propionate Propionate _in_eac e 50 MCG/ACT 50 MCG/ACT h_nostr Propionate il} 50 MCG/ACT Atorvastati Atorvastati No Atorvastat n Calcium n Calcium in Calcium 20 MG 20 MG 20 MG Spironolact Spironolact No 1{table BID Spironolac one 25 MG one 25 MG t} tone 25 MG Zolpidem Zolpidem No 1{table QD Zolpidem Tartrate 10 Tartrate 10 t_at_be Tartrate MG MG dtime_a 10 MG s_neede d} Entresto Entresto No 1{table BID Entresto 24-26 MG 24-26 MG t} 24-26 MG Bumetanide Bumetanide No Bumetanide 1 MG 1 MG 1 MG Atorvastati Atorvastati No 1{table QD Atorvastat n Calcium n Calcium t} in Calcium 20 MG 20 MG 20 MG Levocetiriz Levocetiriz No 1{table QD Levocetiri ine ine t_in_th zine Dihydrochlo Dihydrochlo e_eveni Dihydrochl ride 5 MG ride 5 MG ng} oride 5 MG Xarelto 20 Xarelto 20 No 1{table QD Xarelto 20 MG MG t_with_ MG food} Levothyroxi Levothyroxi No QD Levothyrox ne Sodium ne Sodium ine Sodium 75 MCG 75 MCG 75 MCG Tamsulosin Tamsulosin No 1{capsu QD Tamsulosin HCl 0.4 MG HCl 0.4 MG le} HCl 0.4 MG Fluticasone Fluticasone No 1{spray QD Fluticason Propionate Propionate _in_eac e 50 MCG/ACT 50 MCG/ACT h_nostr Propionate il} 50 MCG/ACT Tamsulosin Tamsulosin No 1{capsu QD Tamsulosin HCl 0.4 MG HCl 0.4 MG le} HCl 0.4 MG Atorvastati Atorvastati No Atorvastat n Calcium n Calcium in Calcium 20 MG 20 MG 20 MG Atorvastati Atorvastati No 1{table QD Atorvastat n Calcium n Calcium t} in Calcium 20 MG 20 MG 20 MG Levothyroxi Levothyroxi No QD Levothyrox ne Sodium ne Sodium ine Sodium 75 MCG 75 MCG 75 MCG Entresto Entresto No 1{table BID Entresto 24-26 MG 24-26 MG t} 24-26 MG Levocetiriz Levocetiriz No 1{table QD Levocetiri ine ine t_in_th zine Dihydrochlo Dihydrochlo e_eveni Dihydrochl ride 5 MG ride 5 MG ng} oride 5 MG Xarelto 20 Xarelto 20 No 1{table QD Xarelto 20 MG MG t_with_ MG food} Bumetanide Bumetanide No Bumetanide 1 MG 1 MG 1 MG Atorvastati Atorvastati No 1{table QD Atorvastat n Calcium n Calcium t} in Calcium 20 MG 20 MG 20 MG Fluticasone Fluticasone No 1{spray QD Fluticason Propionate Propionate _in_eac e 50 MCG/ACT 50 MCG/ACT h_nostr Propionate il} 50 MCG/ACT Bumetanide Bumetanide No Bumetanide 1 MG 1 MG 1 MG Levocetiriz Levocetiriz No 1{table QD Levocetiri ine ine t_in_th zine Dihydrochlo Dihydrochlo e_eveni Dihydrochl ride 5 MG ride 5 MG ng} oride 5 MG Tamsulosin Tamsulosin No 1{capsu QD Tamsulosin HCl 0.4 MG HCl 0.4 MG le} HCl 0.4 MG hydrOXYzine hydrOXYzine No BID hydrOXYzin HCl 10 MG HCl 10 MG e HCl 10 MG Levothyroxi Levothyroxi No QD Levothyrox ne Sodium ne Sodium ine Sodium 75 MCG 75 MCG 75 MCG Xarelto 20 Xarelto 20 No 1{table QD Xarelto 20 MG MG t_with_ MG food} Atorvastati Atorvastati No Atorvastat n Calcium n Calcium in Calcium 20 MG 20 MG 20 MG Entresto Entresto No 1{table BID Entresto 24-26 MG 24-26 MG t} 24-26 MG Bumetanide Bumetanide No Bumetanide 1 MG 1 MG 1 MG Xarelto 20 Xarelto 20 No 1{table QD Xarelto 20 MG MG t_with_ MG food} Fluticasone Fluticasone No 1{spray QD Fluticason Propionate Propionate _in_eac e 50 MCG/ACT 50 MCG/ACT h_nostr Propionate il} 50 MCG/ACT Levocetiriz Levocetiriz No 1{table QD Levocetiri ine ine t_in_th zine Dihydrochlo Dihydrochlo e_eveni Dihydrochl ride 5 MG ride 5 MG ng} oride 5 MG Tamsulosin Tamsulosin No 1{capsu QD Tamsulosin HCl 0.4 MG HCl 0.4 MG le} HCl 0.4 MG hydrOXYzine hydrOXYzine No BID hydrOXYzin HCl 10 MG HCl 10 MG e HCl 10 MG Levothyroxi Levothyroxi No QD Levothyrox ne Sodium ne Sodium ine Sodium 75 MCG 75 MCG 75 MCG Atorvastati Atorvastati No 1{table QD Atorvastat n Calcium n Calcium t} in Calcium 20 MG 20 MG 20 MG Atorvastati Atorvastati No Atorvastat n Calcium n Calcium in Calcium 20 MG 20 MG 20 MG Entresto Entresto No 1{table BID Entresto 24-26 MG 24-26 MG t} 24-26 MG Bumetanide Bumetanide No Bumetanide 1 MG 1 MG 1 MG Xarelto 20 Xarelto 20 No 1{table QD Xarelto 20 MG MG t_with_ MG food} Fluticasone Fluticasone No 1{spray QD Fluticason Propionate Propionate _in_eac e 50 MCG/ACT 50 MCG/ACT h_nostr Propionate il} 50 MCG/ACT Levocetiriz Levocetiriz No 1{table QD Levocetiri ine ine t_in_th zine Dihydrochlo Dihydrochlo e_eveni Dihydrochl ride 5 MG ride 5 MG ng} oride 5 MG Tamsulosin Tamsulosin No 1{capsu QD Tamsulosin HCl 0.4 MG HCl 0.4 MG le} HCl 0.4 MG hydrOXYzine hydrOXYzine No BID hydrOXYzin HCl 10 MG HCl 10 MG e HCl 10 MG Levothyroxi Levothyroxi No QD Levothyrox ne Sodium ne Sodium ine Sodium 75 MCG 75 MCG 75 MCG Atorvastati Atorvastati No 1{table QD Atorvastat n Calcium n Calcium t} in Calcium 20 MG 20 MG 20 MG Atorvastati Atorvastati No Atorvastat n Calcium n Calcium in Calcium 20 MG 20 MG 20 MG Entresto Entresto No 1{table BID Entresto 24-26 MG 24-26 MG t} 24-26 MG Fluticasone Fluticasone No 1{spray QD Fluticason Propionate Propionate _in_eac e 50 MCG/ACT 50 MCG/ACT h_nostr Propionate il} 50 MCG/ACT hydrOXYzine hydrOXYzine No BID hydrOXYzin HCl 10 MG HCl 10 MG e HCl 10 MG Xarelto 20 Xarelto 20 No 1{table QD Xarelto 20 MG MG t_with_ MG food} Levocetiriz Levocetiriz No 1{table QD Levocetiri ine ine t_in_th zine Dihydrochlo Dihydrochlo e_eveni Dihydrochl ride 5 MG ride 5 MG ng} oride 5 MG Tamsulosin Tamsulosin No 1{capsu QD Tamsulosin HCl 0.4 MG HCl 0.4 MG le} HCl 0.4 MG Bumetanide Bumetanide No Bumetanide 1 MG 1 MG 1 MG Levothyroxi Levothyroxi No QD Levothyrox ne Sodium ne Sodium ine Sodium 75 MCG 75 MCG 75 MCG Atorvastati Atorvastati No 1{table QD Atorvastat n Calcium n Calcium t} in Calcium 20 MG 20 MG 20 MG Atorvastati Atorvastati No Atorvastat n Calcium n Calcium in Calcium 20 MG 20 MG 20 MG Entresto Entresto No 1{table BID Entresto 24-26 MG 24-26 MG t} 24-26 MG Atorvastati Atorvastati No Atorvastat n Calcium n Calcium in Calcium 20 MG 20 MG 20 MG Fluticasone Fluticasone No 1{spray QD Fluticason Propionate Propionate _in_eac e 50 MCG/ACT 50 MCG/ACT h_nostr Propionate il} 50 MCG/ACT hydrOXYzine hydrOXYzine No BID hydrOXYzin HCl 10 MG HCl 10 MG e HCl 10 MG Xarelto 20 Xarelto 20 No 1{table QD Xarelto 20 MG MG t_with_ MG food} Levocetiriz Levocetiriz No 1{table QD Levocetiri ine ine t_in_th zine Dihydrochlo Dihydrochlo e_eveni Dihydrochl ride 5 MG ride 5 MG ng} oride 5 MG Entresto Entresto No 1{table BID Entresto 24-26 MG 24-26 MG t} 24-26 MG Bumetanide Bumetanide No Bumetanide 1 MG 1 MG 1 MG Atorvastati Atorvastati No 1{table QD Atorvastat n Calcium n Calcium t} in Calcium 20 MG 20 MG 20 MG Tamsulosin Tamsulosin No 1{capsu QD Tamsulosin HCl 0.4 MG HCl 0.4 MG le} HCl 0.4 MG Levothyroxi Levothyroxi No QD Levothyrox ne Sodium ne Sodium ine Sodium 75 MCG 75 MCG 75 MCG Amiodarone Amiodarone Yes BENNET Q0.5D TAKE 1 UT HCl - 200 HCl - 200 MARYSOL TABLET [facility] MG Oral MG Oral M.D. TWICE ans Tablet Tablet DAILY. Xarelto 20 Xarelto 20 Yes QD TAKE 1 U T MG Oral MG Oral TABLET [facility] Tablet Tablet DAILY ans Atorvastati Atorvastati Yes TAKE 1 UT n Calcium n Calcium TABLET AT [facility] 20 MG Oral 20 MG Oral BEDTIME. ans Tablet Tablet Finasteride Finasteride Yes 1 QD TAKE 1 UT 5 MG Oral 5 MG Oral TABLET [facility] Tablet Tablet DAILY. ans Lisinopril Lisinopril Yes QD TAKE 1 U T 2.5 MG Oral 2.5 MG Oral TABLET [facility] Tablet Tablet DAILY ans Tamsulosin Tamsulosin Yes QD TAKE 1 U T HCl - 0.4 HCl - 0.4 CAPSULE [facility] MG Oral MG Oral DAILY ans Capsule Capsule Metoprolol Metoprolol Yes QD TAKE 1 U T Succinate Succinate TABLET [facility] ER 100 MG ER 100 MG DAILY ans Oral Tablet Oral Tablet Extended Extended Release 24 Release 24 Hour Hour Spironolact Spironolact 2022- No 1{table BID Spironolac one 25 MG one 25 MG 11-21 t} tone 25 MG 00:00 :00 Spironolact Spironolact 2022- No 1{table BID Spironolac one 25 MG one 25 MG 11-21 t} tone 25 MG 00:00 :00 Spironolact Spironolact 2022- No 1{table BID Spironolac one 25 MG one 25 MG 11-21 t} tone 25 MG 00:00 :00 Spironolact Spironolact 2022- No 1{table BID Spironolac one 25 MG one 25 MG 11-21 t} tone 25 MG 00:00 :00 Spironolact Spironolact 2022- No 1{table BID Spironolac one 25 MG one 25 MG 11-21 t} tone 25 MG 00:00 :00 Spironolact Spironolact 2022- No 1{table BID Spironolac one 25 MG one 25 MG 11-21 t} tone 25 MG 00:00 :00 Spironolact Spironolact 2022- No 1{table BID Spironolac one 25 MG one 25 MG 11-21 t} tone 25 MG 00:00 :00 Spironolact Spironolact 2022- No 1{table BID Spironolac one 25 MG one 25 MG 11-21 t} tone 25 MG 00:00 :00 Spironolact Spironolact 2022- No 1{table BID Spironolac one 25 MG one 25 MG 11-21 t} tone 25 MG 00:00 :00 Spironolact Spironolact 2022- No 1{table BID Spironolac one 25 MG one 25 MG 11-21 t} tone 25 MG 00:00 :00 Spironolact Spironolact 2- No Spironolac one 25 MG one 25 MG 05-05 tone 25 MG 00:00 :00 Spironolact Spironolact 2022- No one 25 MG one 25 MG 05-05 00:00 :00 Spironolact Spironolact 2022- No Spironolac one 25 MG one 25 MG 05-05 tone 25 MG 00:00 :00 Finasteride Finasteride 2022- No 1{table QD Finasterid 5 MG 5 MG 05- t} e 5 MG 00:00 :00 Finasteride Finasteride 2022- No 1{table QD Finasterid 5 MG 5 MG 05- t} e 5 MG 00:00 :00 Finasteride Finasteride 2022- No 1{table QD Finasterid 5 MG 5 MG 05- t} e 5 MG 00:00 :00 Finasteride Finasteride 2022- No 1{table QD Finasterid 5 MG 5 MG 05- t} e 5 MG 00:00 :00 Finasteride Finasteride 2022- No 1{table QD Finasterid 5 MG 5 MG 05- t} e 5 MG 00:00 :00 Finasteride Finasteride 2022- No 1{table QD Finasterid 5 MG 5 MG 05-01 t} e 5 MG 00:00 :00 Finasteride Finasteride 2022- No 1{table QD Finasterid 5 MG 5 MG 05-01 t} e 5 MG 00:00 :00 Finasteride Finasteride 2022- No 1{table QD Finasterid 5 MG 5 MG 05- t} e 5 MG 00:00 :00 Finasteride Finasteride 2022- No 1{table QD Finasterid 5 MG 5 MG 05-01 t} e 5 MG 00:00 :00 Spironolact Spironolact 2022- No Spironolac one 25 MG one 25 MG -11 tone 25 MG 00:00 :00 Spironolact Spironolact 2022- No Spironolac one 25 MG one 25 MG -11 tone 25 MG 00:00 :00 Spironolact Spironolact 2022- No Spironolac one 25 MG one 25 MG -11 tone 25 MG 00:00 :00 Spironolact Spironolact 2022- No Spironolac one 25 MG one 25 MG -11 tone 25 MG 00:00 :00 Spironolact Spironolact 2022- No one 25 MG one 25 MG 11 00:00 :00 Spironolact Spironolact 2022- No Spironolac one 25 MG one 25 MG 0411 tone 25 MG 00:00 :00 Spironolact Spironolact 2022- No Spironolac one 25 MG one 25 MG 02-08 tone 25 MG 00:00 :00 Spironolact Spironolact 2022- No Spironolac one 25 MG one 25 MG 02-08 tone 25 MG 00:00 :00 Spironolact Spironolact 2022- No Spironolac one 25 MG one 25 MG 02-08 tone 25 MG 00:00 :00 Spironolact Spironolact 2022- No Spironolac one 25 MG one 25 MG 02-08 tone 25 MG 00:00 :00 Spironolact Spironolact 2022- No Spironolac one 25 MG one 25 MG 02-08 tone 25 MG 00:00 :00 Spironolact Spironolact 2022- No Spironolac one 25 MG one 25 MG 02-08 tone 25 MG 00:00 :00 Spironolact Spironolact 2022- No Spironolac one 25 MG one 25 MG 02-08 tone 25 MG 00:00 :00 Spironolact Spironolact 2022- No Spironolac one 25 MG one 25 MG 12-14 tone 25 MG 00:00 :00 Tamsulosin Tamsulosin 2021- No 1{capsu QD HCl 0.4 MG HCl 0.4 MG 12-09 le} 00:00 :00 Tamsulosin Tamsulosin 2021- No 1{capsu QD Tamsulosin HCl 0.4 MG HCl 0.4 MG 12-09 le} HCl 0.4 MG 00:00 :00 Tamsulosin Tamsulosin 2021- No 1{capsu QD Tamsulosin HCl 0.4 MG HCl 0.4 MG 12-09 le} HCl 0.4 MG 00:00 :00 Tamsulosin Tamsulosin 2021- No 1{capsu QD HCl 0.4 MG HCl 0.4 MG 12-09 le} 00:00 :00 Tamsulosin Tamsulosin 2021- No 1{capsu QD Tamsulosin HCl 0.4 MG HCl 0.4 MG 02- le} HCl 0.4 MG 00:00 :00 Tamsulosin Tamsulosin 2021- No 1{capsu QD Tamsulosin HCl 0.4 MG HCl 0.4 MG 02- le} HCl 0.4 MG 00:00 :00 Tamsulosin Tamsulosin 2021- No 1{capsu QD Tamsulosin HCl 0.4 MG HCl 0.4 MG 02 le} HCl 0.4 MG 00:00 :00 Tamsulosin Tamsulosin 2021- No 1{capsu QD Tamsulosin HCl 0.4 MG HCl 0.4 MG 02- le} HCl 0.4 MG 00:00 :00 Finasteride Finasteride 2021- No 1{table QD Finasterid 5 MG 5 MG 01-25 t} e 5 MG 00:00 :00 Finasteride Finasteride 2021- No 1{table QD 5 MG 5 MG 01-25 t} 00:00 :00 Finasteride Finasteride 2021- No 1{table QD Finasterid 5 MG 5 MG 01-25 t} e 5 MG 00:00 :00 Finasteride Finasteride 2021- No 1{table QD Finasterid 5 MG 5 MG 01-25 t} e 5 MG 00:00 :00 Finasteride Finasteride 2021- No 1{table QD 5 MG 5 MG 01-25 t} 00:00 :00 Finasteride Finasteride 2021- No 1{table QD Finasterid 5 MG 5 MG 01-25 t} e 5 MG 00:00 :00 Finasteride Finasteride 2021- No 1{table QD Finasterid 5 MG 5 MG 01-25 t} e 5 MG 00:00 :00 Finasteride Finasteride 2021- No 1{table QD Finasterid 5 MG 5 MG 01-25 t} e 5 MG 00:00 :00 Finasteride Finasteride 2021- No 1{table QD Finasterid 5 MG 5 MG 01-25 t} e 5 MG 00:00 :00 Immunizations Ordered Immunization Filled Immunization Date Status Commen ts Source Name Name FluAD FluAD 2021-08-13 Completed [facility] 11:08:00 - [facility] Flu[facility] FluAD 2021-08-13 Completed [facility] 11:08:00 - [facility] FluAD FluAD 2021-08-13 Completed [facility] 11:08:00 - [facility] FluAD FluAD 2021-08-13 Completed [facility] 11:08: - [facility] FluAD FluAD 2021-08-13 Completed [facility] 11:08: - [facility] FluAD FluAD 2021-08-13 Completed [facility] 11:08: - [facility] FluAD FluAD 2021-08-13 Completed [facility] 11:08: - [facility] FluAD FluAD 2021-08-13 Completed [facility] 11:08: - [facility] FluAD FluAD 2021-08-13 Completed [facility] 11:08: - [facility] FluAD FluAD 2021-08-13 Completed [facility] 11:: - [facility] FluAD FluAD 2021-08-13 Completed [facility] 11:: - [facility] FluAD FluAD 2021-08-13 Completed [facility] 11:: - [facility] FluAD 2021-08-13 Com[facility] 11:: - [facility] FluAD 2021-08-13 Com[facility]:: - [facility] FluAD FluAD 2021-08-13 Completed [facility] 11:: - [facility] FluAD FluAD 2021-08-13 Completed [facility] 11:: - [facility] FluAD FluAD 2021-08-13 Completed [facility] 11:08: - [facility] FluAD FluAD 2021-08-13 Completed [facility] 11:08: - [facility] FluAD FluAD 2021-08-13 Completed [facility] 11:08: - [facility] FluAD FluAD 2021-08-13 Completed [facility] 11[facility]08: - [facility] FluAD FluAD 2021-08-13 Completed [facility] 11:08:00 - [facility] FluAD FluAD 2021-08-13 Completed [facility] 11:08:00 - [facility] FluAD FluAD 2021-08-13 Completed [facility] 11:08:00 - [facility] FluAD FluAD 2021-08-13 Completed [facility] 11:08: - [facility] FluAD FluAD 2021-08-13 Completed [facility] 11:08:00 - [facility] FluAD FluAD 2021-08-13 Completed [facility] 11:08:00 - [facility] FluAD FluAD 2021-08-13 Completed [facility] 11:08:00 - [facility] FluAD FluAD 2021-08-13 Completed [facility] 11:08: - [facility] FluAD FluAD 2021-08-13 Completed [facility] 11:08: - [facility] FluAD FluAD 2021-08-13 Completed [facility] 11:08: - [facility] FluAD FluAD 2021-08-13 Completed [facility] 11:08: - [facility] FluAD FluAD 2021-08-13 Completed [facility] 11:08: - [facility] FluAD FluAD 2021-08-13 Completed [facility] 11:08: - [facility] FluAD FluAD 2021-08-13 Completed [facility] 11:08: - [facility] FluAD FluAD 2021-08-13 Completed [facility] 11[facility]08: - [facility] FluAD FluAD 2021-08-13 Completed [facility] 11:08:00 - [facility] FluAD FluAD 2020-10-01 Completed [facility] 08:30:00 - [facility] FluAD FluAD 2020-10-01 Completed [facility] 08:30:00 - [facility] FluAD FluAD 2020-10-01 Completed [facility] 08:30:00 - [facility] FluAD FluAD 2020-10-01 Completed [facility] 08:30:00 - [facility] FluAD FluAD 2020-10-01 Completed [facility] 08:30:00 - [facility] FluAD FluAD 2020-10-01 Completed [facility] 08[facility]30:00 - [facility] FluAD FluAD 2020-10-01 Completed [facility] 08[facility]30:00 - [facility] FluAD FluAD 2020-10-01 Completed [facility] 08[facility]30:00 - [facility] FluAD FluAD 2020-10-01 Completed [facility] 08[facility]30:00 - [facility] FluAD FluAD 2020-10-01 Completed [facility] 08[facility]30:00 - [facility] FluAD FluAD 2020-10-01 Completed [facility] 08[facility]30:00 - [facility] FluAD FluAD 2020-10-01 Completed [facility] 08[facility]30:00 - [facility] FluAD FluAD 2020-10-01 Completed [facility] 08[facility]30:00 - [facility] FluAD FluAD 2020-10-01 Completed [facility] 08[facility]30:00 - [facility] FluAD FluAD 2020-10-01 Completed [facility] 08[facility]30:00 - [facility] FluAD FluAD 2020-10-01 Completed [facility] 08[facility]30:00 - [facility] FluAD FluAD 2020-10-01 Completed [facility] 08[facility]30:00 - [facility] FluAD FluAD 2020-10-01 Completed [facility] 08[facility]30:00 - [facility] FluAD FluAD 2020-10-01 Completed [facility] 08[facility]30:00 - [facility] FluAD FluAD 2020-10-01 Completed [facility] 08[facility]30:00 - [facility] FluAD FluAD 2020-10-01 Completed [facility] 08:30:00 - [facility] FluAD FluAD 2020-10-01 Completed [facility] 08:30:00 - [facility] FluAD FluAD 2020-10-01 Completed [facility] 08[facility]30:00 - [facility] FluAD FluAD 2020-10-01 Completed [facility] 08:30:00 - [facility] FluAD FluAD 2020-10-01 Completed [facility] 08[facility]30:00 - [facility] FluAD FluAD 2020-10-01 Completed [facility] 08:30:00 - [facility] FluAD FluAD 2020-10-01 Completed [facility] 08:30:00 - [facility] FluAD FluAD 2020-10-01 Completed [facility] 08:30:00 - [facility] FluAD FluAD 2020-10-01 Completed [facility] 08:30:00 - [facility] FluAD FluAD 2020-10-01 Completed [facility] 08:30:00 - [facility] FluAD FluAD 2020-10-01 Completed [facility] 08:30:00 - [facility] FluAD FluAD 2020-10-01 Completed [facility] 08:30:00 - [facility] FluAD FluAD 2020-10-01 Completed [facility] 08:30:00 - [facility] FluAD FluAD 2020-10-01 Completed [facility] 08:30:00 - [facility] FluAD FluAD 2020-10-01 Completed [facility] 08:30:00 - [facility] FluAD FluAD 2020-10-01 Completed [facility] 08:30:00 - [facility] FluAD FluAD 2020-10-01 Completed [facility] 08:30:00 - [facility] PNEUMAVAX 23 PNEUMAVAX 2019-10-12 Completed [facility] - [facility] PNEUMAVAX 23 PNEUMAVAX 2019-10-12 Completed [facility] 08:59:00 - [facility] PNEUMAVAX 23 PNEUMAVAX 2019-10-12 Completed [facility] 08:59:00 - [facility] PNEUMAVAX 23 PNEUMAVAX 2019-10-12 Completed [facility] 08:59:00 - [facility] PNEUMAVAX 23 PNEUMAVAX 2019-10-12 Completed [facility] 08:59:00 - [facility] PNEUMAVAX 23 PNEUMAVAX 2019-10-12 Completed [facility] 08:59:00 - [facility] PNEUMAVAX 23 PNEUMAVAX 2019-10-12 Completed [facility] 08:59:00 - [facility] PNEUMAVAX 23 PNEUMAVAX 2019-10-12 Completed [facility] 08:59:00 - [facility] PNEUMAVAX 23 PNEUMAVAX 2019-10-12 Completed [facility] 08:59[facility]00 [facility] PNEUMAVAX 23 PNEUMAVAX 2019-10-12 Completed [facility] 08:59:00 [facility] PNEUMAVAX 23 PNEUMAVAX 2019-10-12 Completed [facility] 08:59:00 [facility] PNEUMAVAX 23 PNEUMAVAX 2019-10-12 Completed [facility] 08:59:00 - [facility] PNEUMAVAX 23 PNEUMAVAX 2019-10-12 Completed [facility] 08:59:00 - [facility] PNEUMAVAX 23 PNEUMAVAX 2019-10-12 Completed [facility] 08:59:00 [facility] PNEUMAVAX 23 PNEUMAVAX 2019-10-12 Completed [facility] 08:59:00 [facility] PNEUMAVAX 23 PNEUMAVAX 2019-10-12 Completed [facility] 08:59:00 - [facility] PNEUMAVAX 23 PNEUMAVAX 2019-10-12 Completed [facility] 08:59:00 [facility] PNEUMAVAX 23 PNEUMAVAX 2019-10-12 Completed [facility] 08:59:00 [facility] PNEUMAVAX 23 PNEUMAVAX 2019-10-12 Completed [facility] 08:59:00 [facility] PNEUMAVAX 23 PNEUMAVAX 2019-10-12 Completed [facility] 08:59:00 [facility] PNEUMAVAX 23 PNEUMAVAX 2019-10-12 Completed [facility] 08:59:00 [facility] PNEUMAVAX 23 PNEUMAVAX 2019-10-12 Completed [facility] 08:59:00 [facility] PNEUMAVAX 23 PNEUMAVAX 2019-10-12 Completed [facility] 08:59:00 [facility] PNEUMAVAX 23 PNEUMAVAX 2019-10-12 Completed [facility] 08:59:00 [facility] PNEUMAVAX 23 PNEUMAVAX 2019-10-12 Completed [facility] 08:59:00 [facility] PNEUMAVAX 23 PNEUMAVAX 2019-10-12 Completed [facility] 08:59:00 - [facility] PNEUMAVAX 23 PNEUMAVAX 2019-10-12 Completed [facility] 08:59:00 - [facility] PNEUMAVAX 23 PNEUMAVAX 2019-10-12 Completed [facility] 08:59:00 - [facility] PNEUMAVAX 23 PNEUMAVAX 2019-10-12 Completed [facility] 08:59:00 - [facility] PNEUMAVAX 23 PNEUMAVAX 2019-10-12 Completed [facility] 08:59:00 - [facility] PNEUMAVAX 23 PNEUMAVAX 2019-10-12 Completed [facility] 08:59:00 - [facility] PNEUMAVAX 23 PNEUMAVAX 2019-10-12 Completed [facility] 08:59:00 - [facility] PNEUMAVAX 23 PNEUMAVAX 2019-10-12 Completed [facility] 08:59:00 - [facility] PNEUMAVAX 23 PNEUMAVAX 2019-10-12 Completed [facility] 08:59:00 - [facility] PNEUMAVAX 23 PNEUMAVAX 2019-10-12 Completed [facility] 08:59:00 - [facility] PNEUMAVAX 23 PNEUMAVAX 2019-10-12 Completed [facility] 08:59:00 - [facility] PNEUMAVAX 23 PNEUMAVAX 2019-10-12 Completed [facility] 08:59:00 - [facility] Flucelvax - Flucelvax - 2019-09-19 [facility]pleted [facility]ose vial 09:29:00 - [facility] Flucelvax - Flucelvax - 2019-09-19 [facility]pleted [facility]ose [facility]ial multidose vial 09:29:00 - [facility] Flucelvax - Flucelvax - 2019-09-19 Completed [facility]ose [facility]ial multidose vial 09:29:00 - [facility] Flucelvax - Flucelvax - 2019-09-19 Completed [facility]ose [facility]ial multidose vial 09:29:00 - [facility] Flucelvax - Flucelvax - 2019-09-19 [facility]pleted [facility]ose [facility]ial multidose vial 09:29:00 - [facility] Flucelvax - Flucelvax - 2019-09-19 Completed [facility]ose [facility]ial multidose vial 09:29:00 - [facility] Flucelvax - Flucelvax - 2019-09-19 Completed [facility]ose vial multidose vial 09:29:00 - [facility] Flucelvax - Flucelvax - 2019-09-19 Completed [facility]ose vial multidose vial 09:29:00 - [facility] Flucelvax - Flucelvax - 2019-09-19 Completed [facility]ose [facility]ial multidose vial 09:29:00 - [facility] Flucelvax - Flucelvax - 2019-09-19 Completed [facility]ose vial multidose vial 09:29:00 - [facility] Flucelvax - Flucelvax - 2019-09-19 Completed [facility]ose [facility]ial multidose vial 09:29:00 - [facility] Flucelvax - Flucelvax - 2019-09-19 Completed [facility]ose vial multidose vial 09:29:00 - [facility] Flucelvax - Flucelvax - 2019-09-19 Completed [facility]ose [facility]ial multidose vial 09:29:00 - [facility] Flucelvax - Flucelvax - 2019-09-19 Completed [facility]ose vial multidose vial 09:29:00 - [facility] Flucelvax - Flucelvax - 2019-09-19 Completed [facility]ose vial multidose vial 09:29:00 - [facility] Flucelvax - Flucelvax - 2019-09-19 Completed [facility]ose vial multidose vial 09:29:00 - [facility] Flucelvax - Flucelvax - 2019-09-19 Completed [facility]ose [facility]ial multidose vial 09:29:00 - [facility] Flucelvax - Flucelvax - 2019-09-19 Completed [facility]ose [facility]ial multidose vial 09:29:00 - [facility] Flucelvax - Flucelvax - 2019-09-19 Completed [facility]ose [facility]ial multidose vial 09:29:00 - [facility] Flucelvax - Flucelvax - 2019-09-19 Completed [facility]ose [facility]ial multidose vial 09:29:00 - [facility] Flucelvax - Flucelvax - 2019-09-19 Completed [facility]ose vial multidose vial 09:29:00 - [facility] Flucelvax - Flucelvax - 2019-09-19 Completed [facility]ose vial multidose vial 09:29:00 - [facility] Flucelvax - Flucelvax - 2019-09-19 Completed [facility]ose [facility]ial multidose vial 09:29:00 - [facility] Flucelvax - Flucelvax - 2019-09-19 Completed [facility]ial multidose vial 09:29:00 - [facility] Flucelvax - Flucelvax - 2019-09-19 Completed [facility]ose vial multidose vial 09:29:00 - [facility] Flucelvax - Flucelvax - 2019-09-19 Completed [facility]ose vial multidose vial 09:29:00 - [facility] Flucelvax - Flucelvax - 2019-09-19 Completed [facility]ose vial multidose vial 09:29:00 - [facility] Flucelvax - Flucelvax - 2019-09-19 Completed [facility]ose [facility]ial multidose vial 09:29:00 - [facility] Flucelvax - Flucelvax - 2019-09-19 Completed [facility]ose vial multidose vial 09:29:00 - [facility] Flucelvax - Flucelvax - 2019-09-19 Completed [facility] multidose vial multidose vial 09:29:00 - [facility] Flucelvax - Flucelvax - 2019-09-19 Completed [facility]ose vial multidose vial 09:29:00 - [facility] Flucelvax - Flucelvax - 2019-09-19 Completed [facility]ose [facility]ial multidose vial 09:29:00 - [facility] Flucelvax - Flucelvax - 2019-09-19 Completed [facility]ose [facility]ial multidose vial 09:29:00 - [facility] Flucelvax - Flucelvax - 2019-09-19 Completed [facility]ose vial multidose vial 09:29:00 - [facility] Flucelvax - Flucelvax - 2019-09-19 Completed [facility]ose vial multidose vial 09:29:00 - [facility] Flucelvax - Flucelvax - 2019-09-19 Completed [facility]ose [facility]ial multidose vial 09:29:00 - [facility] Flucelvax - Flucelvax - 2019-09-19 Completed [facility]ial multidose vial 09:29:00 - [facility] FLUZONE HIGH DOSE FLUZONE HIGH DOSE 2018-07-25 Completed [facility] OVER 65 OVER 65 08:45:00 - [facility] FLUZONE HIGH DOSE FLUZONE HIGH DOSE 2018-07-25 Completed [facility] OVER 65 OVER 65 08:45:00 - [facility] FLUZONE HIGH DOSE FLUZONE HIGH DOSE 2018-07-25 Completed [facility] OVER 65 OVER 65 08:45:00 - [facility] FLUZONE HIGH DOSE FLUZONE HIGH DOSE 2018-07-25 Completed [facility] OVER 65 OVER 65 08:45:00 - [facility] FLUZONE HIGH DOSE FLUZONE HIGH DOSE 2018-07-25 Completed [facility] OVER 65 OVER 65 08:45:00 - [facility] FLUZONE HIGH DOSE FLUZONE HIGH DOSE 2018-07-25 Completed [facility] OVER 65 OVER 65 08:45:00 - [facility] FLUZONE HIGH DOSE FLUZONE HIGH DOSE 2018-07-25 Completed [facility] OVER 65 OVER 65 08:45:00 - [facility] FLUZONE HIGH DOSE FLUZONE HIGH DOSE 2018-07-25 Completed [facility] OVER 65 OVER 65 08:45:00 - [facility] FLUZONE HIGH DOSE FLUZONE HIGH DOSE 2018-07-25 Completed [facility] OVER 65 OVER 65 08:45:00 - [facility] FLUZONE HIGH DOSE FLUZONE HIGH DOSE 2018-07-25 Completed [facility] OVER 65 OVER 65 08:45:00 - [facility] FLUZONE HIGH DOSE FLUZONE HIGH DOSE 2018-07-25 Completed [facility] OVER 65 OVER 65 08:45:00 - [facility] FLUZONE HIGH DOSE FLUZONE HIGH DOSE 2018-07-25 Completed [facility] OVER 65 OVER 65 08:45:00 - [facility] FLUZONE HIGH DOSE FLUZONE HIGH DOSE 2018-07-25 Completed [facility] OVER 65 OVER 65 08:45:00 - [facility] FLUZONE HIGH DOSE FLUZONE HIGH DOSE 2018-07-25 Completed [facility] OVER 65 OVER 65 08:45:00 - [facility] FLUZONE HIGH DOSE FLUZONE HIGH DOSE 2018-07-25 Completed [facility] OVER 65 OVER 65 08:45:00 - [facility] FLUZONE HIGH DOSE FLUZONE HIGH DOSE 2018-07-25 Completed [facility] OVER 65 OVER 65 08:45:00 - [facility] FLUZONE HIGH DOSE FLUZONE HIGH DOSE 2018-07-25 Completed [facility] OVER 65 OVER 65 08:45:00 - [facility] FLUZONE HIGH DOSE FLUZONE HIGH DOSE 2018-07-25 Completed [facility] OVER 65 OVER 65 08:45:00 - [facility] FLUZONE HIGH DOSE FLUZONE HIGH DOSE 2018-07-25 Completed [facility] OVER 65 OVER 65 08:45:00 - [facility] FLUZONE HIGH DOSE FLUZONE HIGH DOSE 2018-07-25 Completed [facility] OVER 65 OVER 65 08:45:00 - [facility] FLUZONE HIGH DOSE FLUZONE HIGH DOSE 2018-07-25 Completed [facility] OVER 65 OVER 65 08:45:00 [facility] FLUZONE HIGH DOSE FLUZONE HIGH DOSE 2018-07-25 Completed [facility] OVER 65 OVER 65 08:45:00 - [facility] FLUZONE HIGH DOSE FLUZONE HIGH DOSE 2018-07-25 Completed [facility] OVER 65 OVER 65 08:45:00 - [facility] FLUZONE HIGH DOSE FLUZONE HIGH DOSE 2018-07-25 Completed [facility] OVER 65 OVER 65 08:45:00 - [facility] FLUZONE HIGH DOSE FLUZONE HIGH DOSE 2018-07-25 Completed [facility] OVER 65 OVER 65 08:45:00 [facility] FLUZONE HIGH DOSE FLUZONE HIGH DOSE 2018-07-25 Completed [facility] OVER 65 OVER 65 08:45:00 - [facility] FLUZONE HIGH DOSE FLUZONE HIGH DOSE 2018-07-25 Completed [facility] OVER 65 OVER 65 08:45:00 [facility] FLUZONE HIGH DOSE FLUZONE HIGH DOSE 2018-07-25 Completed [facility] OVER 65 OVER 65 08:45:00 - [facility] FLUZONE HIGH DOSE FLUZONE HIGH DOSE 2018-07-25 Completed [facility] OVER 65 OVER 65 08:45:00 - [facility] FLUZONE HIGH DOSE FLUZONE HIGH DOSE 2018-07-25 Completed [facility] OVER 65 OVER 65 08:45:00 - [facility] FLUZONE HIGH DOSE FLUZONE HIGH DOSE 2018-07-25 Completed [facility] OVER 65 OVER 65 08:45:00 - [facility] FLUZONE HIGH DOSE FLUZONE HIGH DOSE 2018-07-25 Completed [facility] OVER 65 OVER 65 08:45:00 [facility] FLUZONE HIGH DOSE FLUZONE HIGH DOSE 2018-07-25 Completed [facility] OVER 65 OVER 65 08:45:00 - [facility] FLUZONE HIGH DOSE FLUZONE HIGH DOSE 2018-07-25 Completed [facility] OVER 65 OVER 65 08:45:00 [facility] FLUZONE HIGH DOSE FLUZONE HIGH DOSE 2018-07-25 Completed [facility] OVER 65 OVER 65 08:45:00 [facility] FLUZONE HIGH DOSE FLUZONE HIGH DOSE 2018-07-25 Completed [facility] OVER 65 OVER 65 08:45:00 [facility] FLUZONE HIGH DOSE FLUZONE HIGH DOSE 2018-07-25 Completed [facility] OVER 65 OVER 65 08:45:00 [facility] Vital Signs Vital Name Observation Time Observation Value Comments Source height 2022-08-30 71.5 [in_i] [facility] - 09:30:00 [facility] weight 2022-08-30 174.2 [lb_av] [facility] - 09:30:00 [facility] temperature 2022-08-30 97.5 [degF] [facility] - 09:30:00 [facility] bmi 2022-08-30 23.95 kg/m2 [facility] - 09:30:00 [facility] oximetry 2022-08-30 99 % [facility] - 09:30:00 [facility] respiratory rate 2022-08-30 18 /min [facility] - 09:30:00 [facility] blood pressure 2022-08-30 130 mm[Hg] [facility] - systolic 09:30:00 [facility] blood pressure 2022-08-30 72 mm[Hg] [facility] - diastolic 09:30:00 [facility] height 2022-05-28 71.5 [in_i] [facility] - 08:50:00 [facility] weight 2022-05-28 174.8 [lb_av] [facility] - 08:50:00 [facility] temperature 2022-05-28 97.0 [degF] [facility] - 08:50:00 [facility] bmi 2022-05-28 24.04 kg/m2 [facility] - 08:50:00 [facility] oximetry 2022-05-28 98 % [facility] - 08:50:00 [facility] respiratory rate 2022-05-28 18 /min [facility] - 08:50:00 [facility] blood pressure 2022-05-28 95 mm[Hg] [facility] - systolic 08:50:00 [facility] blood pressure 2022-05-28 58 mm[Hg] [facility] - diastolic 08:50:00 [facility] height 2022-02-24 71.5 [in_i] [facility] - 11:30:00 [facility] weight 2022-02-24 173.7 [lb_av] [facility] - 11:30:00 [facility] temperature 2022-02-24 98.1 [degF] [facility] - 11:30:00 [facility] bmi 2022-02-24 23.89 kg/m2 [facility] - 11:30:00 [facility] oximetry 2022-02-24 98 % [facility] - 11:30:00 [facility] respiratory rate 2022-02-24 17 /min [facility] - 11:30:00 [facility] blood pressure 2022-02-24 110 mm[Hg] [facility] - systolic 11:30:00 [facility] blood pressure 2022-02-24 76 mm[Hg] [facility] - diastolic 11:30:00 [facility] height 2021-11-23 71.5 [in_i] [facility] - 15:00:00 [facility] weight 2021-11-23 191.3 [lb_av] [facility] - 15:00:00 [facility] temperature 2021-11-23 98.2 [degF] [facility] - 15:00:00 [facility] bmi 2021-11-23 26.31 kg/m2 [facility] - 15:00:00 [facility] oximetry 2021-11-23 97 % [facility] - 15:00:00 [facility] respiratory rate 2021-11-23 17 /min [facility] - 15:00:00 [facility] blood pressure 2021-11-23 119 mm[Hg] [facility] - systolic 15:00:00 [facility] blood pressure 2021-11-23 62 mm[Hg] [facility] - diastolic 15:00:00 [facility] height 2021-11-23 71.5 [in_i] [facility] - 14:20:00 [facility] weight 2021-11-23 191.3 [lb_av] [facility] - 14:20:00 [facility] temperature 2021-11-23 98.2 [degF] [facility] - 14:20:00 [facility] bmi 2021-11-23 26.31 kg/m2 [facility] - 14:20:00 [facility] oximetry 2021-11-23 97 % [facility] - 14:20:00 [facility] blood pressure 2021-11-23 89 mm[Hg] [facility] - systolic 14:20:00 [facility] blood pressure 2021-11-23 61 mm[Hg] [facility] - diastolic 14:20:00 [facility] height 2021-08-13 71.5 [in_i] [facility] - 10:10:00 [facility] weight 2021-08-13 179.1 [lb_av] [facility] - 10:10:00 [facility] temperature 2021-08-13 97.2 [degF] [facility] - 10:10:00 [facility] bmi 2021-08-13 24.63 kg/m2 [facility] - 10:10:00 [facility] oximetry 2021-08-13 98 % [facility] - 10:10:00 [facility] respiratory rate 2021-08-13 16 /min [facility] - 10:10:00 [facility] blood pressure 2021-08-13 91 mm[Hg] [facility] - systolic 10:10:00 [facility] blood pressure 2021-08-13 56 mm[Hg] [facility] - diastolic 10:10:00 [facility] Systolic blood 2021-12-10 110 mm[Hg] [facility] 13:02:00 [facility] Diastolic blood 2021-12-10 59 mm[Hg] [facility] pressure 13:02:00 [facility] Heart rate 2021-12-10 85 /min [facility] 13:02:00 [facility] Body temperature 2021-12-10 36.22 [facility] 13:02:00 [facility] Respiratory rate 2021-12-10 16 /min [facility] 13:02:00 [facility] Oxygen saturation 2021-12-10 96 /min [facility] in Arterial blood 13:02:00 [facility] by Pulse oximetry Body height 2021-12-10 180.3 cm [facility] 01:00:00 [facility] Body weight 2021-12-10 86.186 kg [facility] 01:00:00 [facility] BMI 2021-12-10 26.50 kg/m2 [facility] 01:00:00 [facility] Temperature Oral 2020-12-21 [facility] 14:00:00 Heart Rate 2020-12-21 [facility] 14:[facility] Respitory Rate 2020-12-21 [facility] 14:00:00 Systolic (mm Hg) 2020-12-21 [facility] 14:00:00 Diastolic (mm Hg) 2020-12-21 [facility] ermann 14:00:00 Respitory Rate 2020-12-21 [facility] 13:31:00 Temperature Oral 2020-12-21 98.6 F [facility] Jeyson rmann (F) 10:00:00 Heart Rate 2020-12-21 [facility] 10:00:00 Respitory Rate 2020-12-21 [facility] 10:00:00 Systolic (mm Hg) 2020-12-21 [facility] He rmann 10:00:00 Diastolic (mm Hg) 2020-12-21 [facility] ermann 10:00:00 Temperature Oral 2020-12-21 97.8 F [facility] rmann (F) 06:00:00 Heart Rate 2020-12-21 [facility] 06:[facility]:00 Systolic (mm Hg) 2020-12-21 [facility] rmann 06:00:00 Diastolic (mm Hg) 2020-12-21 [facility] H ermann 06:00:00 Height 2020-12-18 180.34 cm [facility] 11:48:00 Height 2020-12-12 180.34 cm [facility] Leonardo n 23:48:00 Weight 2020-12-12 [facility] Leonardo n 23:48:00 BMI Calculated 2020-12-12 [facility] elizabeth 23:48:00 Systolic blood 2020-12-12 113 mm[Hg] Location: [facility] Physicia ns pressure 13:14:00 Position: Sitting Diastolic blood 2020-12-12 75 mm[Hg] Location: [facility] Physici ans pressure 13:14:00 Position: Sitting Body height 2020-12-12 72 [in_us] [facility] 13:14:00 Weight 2020-12-12 169 [lb_av] [facility] 13:14:00 Body mass index 2020-12-12 22.92 kg/m2 [facility] (BMI) [Ratio] 13:14:00 Heart Rate 2020-12-12 106 /min Location: L [facility] 13:14:00 Radial; Quality: Normal Temperature Oral 2020-11-23 97.9 [facility] ([facility]) 18:00:00 Heart Rate 2020-11-23 [facility] 18:00:00 Height 2020-01-04 180.34 cm [facility] n 18:00:00 Weight 2020-01-04 [facility] 18:00:00 BMI Calculated 2020-01-04 [facility] 18:00:00 Height 2019-11-23 182.88 cm [facility] 16:17:00 Weight 2019-11-23 [facility] 16:17:00 BMI Calculated 2019-11-23 [facility] 16:17:00 Height 2018-08-30 182.88 cm [facility] n 18:25:00 Weight 2018-08-30 [facility] 18:25:00 BMI Calculated 2018-08-30 [facility] 18:25:00 Systolic (mm Hg) 2018-08-30 [facility] rmann 18:25:00 Diastolic (mm Hg) 2018-08-30 [facility] Jo-Ann ermann 18:25:00 Heart Rate 2018-08-30 [facility] n 18:25:00 Procedures Procedure Date / Time Performing Clinician Source Performed ECG PRE/POST OP 2021-12-10 10:53:56 [facility] XR CHEST 1 VW PORTABLE 2021-12-09 20:00:00 [facility] EP AICD IMPLANT SINGLE 2021-12-09 18:59:06 Dexter [facility] DUAL BI VENT ESTIMATED GFR 2021-12-09 15:51:00 [facility] POC PANEL 2021-12-09 15:51:00 [facility] TYPE AND SCREEN 2021-12-09 15:43:00 [facility] ECG 12-LEAD 2021-12-09 15:19:29 [facility] Renteria [facility]ital COVID-19 QUALITATIVE 2021-12-07 16:25:00 [facility]19 OMICRON VARIANT 2021-12-07 16:25:00 Dexter [facility] QUALITATIVE RT-PCR PROTHROMBIN TIME WITH INR 2021-12-07 16:25:00 Dexter, [facility] MAGNESIUM LEVEL 2021-12-07 16:25:00 Dexter [facility] spital HC COMPLETE BLD COUNT 2021-12-07 16:25:00 [facility] DIFF COMPREHENSIVE METABOLIC 2021-12-07 16:25:00 [facility] PANEL ESTIMATED GFR 2021-12-07 16:25:00 Dexter [facility] spital COVID-19 QUALITATIVE 2021-11-24 18:09:00 [facility] RT-PCR COVID-19 OMICRON VARIANT 2021-11-24 18:09:00 [facility], [facility] QUALITATIVE RT-PCR PROTHROMBIN TIME WITH INR 2021-11-24 18:09:00 [facility] MAGNESIUM LEVEL 2021-11-24 18:09:00 Dexter [facility] spital HC COMPLETE BLD COUNT 2021-11-24 18:09:00 [facility] W/AUTO DIFF COMPREHENSIVE METABOLIC 2021-11-24 18:09:00 [facility] PANEL ESTIMATED GFR 2021-11-24 18:09:00 [facility] spital [QL] B TYPE NATRIURETIC 2020-12-26 00:00:00 [facility] PEPTIDE (BNP) [QL] BASIC METABOLIC 2020-12-26 00:00:00 [facility] PANEL W/EGFR [QL] CBC (INCLUDES 2020-12-26 00:00:00 [facility] DIFF/PLT) [QL] MAGNESIUM 2020-12-26 00:00:00 [facility] Physician s Plan of Care Planned Activity Planned Date Details Comments Source Future Scheduled 2022-09-04 HEPATITIS B VACCINES [facility] Test 23:01:03 (1 of 3 - 3-dose series) [code = HEPATITIS B VACCINES (1 of 3 - 3-dose series)] Future Scheduled 2022-09-04 Hepatitis C screening [facility] [place] [place] Test 23:01:03 (procedure) [code = 532413545] Future Scheduled 2022-09-04 SHINGLES VACCINES (1 Met [facility] Test 23:01:03 of 2) [code = SHINGLES VACCINES (1 of 2)] Future Scheduled 2022-09-04 65+ PNEUMOCOCCAL Methodi [facility] Test 23:01:03 VACCINE (2 - PCV) [code = 65+ PNEUMOCOCCAL VACCINE (2 - PCV)] Future Scheduled 2022-09-04 COVID-19 VACCINE (4 - Me [facility] Test 23:01:03 Booster for Moderna series) [code = COVID-19 VACCINE (4 - Booster for Moderna series)] Future Scheduled 2022-09-04 INFLUENZA VACCINE Method [facility] Test 23:01:03 [code = INFLUENZA VACCINE] Future Scheduled 2021-12-01 Hepatitis C screening [facility] [place] [place] Test 11:08:12 (procedure) [code = 465324323] Future Scheduled 2021-12-[address] [facility] [place] [place] Test 11:08:12 [code = COLONOSCOPY SCREENING] Future Scheduled 2021-12-01 SHINGLES VACCINES (#1) M [facility] Test 11:08:12 [code = SHINGLES VACCINES (#1)] Future Scheduled 2021-12-01 65+ PNEUMOCOCCAL [facility] Test 11:08:12 VACCINE (2 of 2 - PCV13) [code = 65+ PNEUMOCOCCAL VACCINE (2 of 2 - PCV13)] Future Scheduled 2021-12-01 INFLUENZA VACCINE Method [facility] Test 11:08:12 [code = INFLUENZA VACCINE] Encounters Start End Encounter Admission Attending Care Care Encounter Source Date/Time Date/Time Type Type Clinicians Facility Department ID 2022-08-26 [facility] [id number] Common 08:49:02 [facility] 2022-07-28 Outpatient [facility] [id number] [place] 11:30:33 [id number] [facility] 2022-05-24 Outpatient [facility] [id number] [place] 14:34:37 [id number] [facility] 2021-11-25 Out[facility]Y [facility] [id number] Common 14:38:53 [facility] 2021-11-25 [facility] [id number] Common 13:27:14 [place] [id number] [facility] 2021-11-25 Outpatient Bajwa, STLMLC STLMLC Common 13:24:00 [place] [id number] [facility] 2021-11-25 Outpatient Bajwa, STLMLC STLMLC Common 12:52:34 [place] [id number] [facility] 2021-11-25 Outpatient Bajwa, STLMLC STLMLC Common 12:51:57 [place] [id number] [facility] 2021-11-25 Outpatient Bajwa, STLMLC STLMLC Common 12:47:01 [place] [facility] 2021-11-25 Outpatient Bajwa, STLMLC STLMLC Common 12:46:07 [place] [id number] [facility] 2021-11-25 Outpatient Bajwa, STLMLC STLMLC Common 12:35:50 [place] [id number] [facility] 2021-11-25 Outpatient Bajwa, STLMLC STLMLC Common 12:35:15 [place] [id number] [facility] 2021-11-25 Outpatient Bajwa, STLMLC STLMLC Common 12:34:46 [place] [facility] 2021-11-25 Outpatient Bajwa, STLMLC STLMLC Common 12:26:46 [place] [id number] [facility] 2021-11-25 Outpatient Bajwa, STLMLC STLMLC Common 12:17:50 [place] [id number] [facility] 2021-11-25 Outpatient Bajwa, STLMLC STLMLC Common 11:54:35 [place] [id number] [facility] 2021-11-25 Outpatient Bajwa, STLMLC STLMLC Common 11:19:57 [place] [id number] [facility] 2021-11-25 Outpatient Bajwa, STLMLC STLMLC Common 11:18:08 [facility] [id number] [facility] 2021-11-25 Outpatient Bajwa, STLMLC STLMLC [id number] Common 10:59:28 [facility] [id number] [facility] 2022-09-14 2022-09-14 (WEB) STLMLC STLMLC [id number] Co mmon 00:00:00 00:00:00 [facility] 2022-09-13 2022-09-13 (WEB) STLMLC STLMLC [id number] Co mmon 00:00:00 00:00:00 [facility] 2022-09-13 2022-09-13 (TEL) STLMLC STLMLC [id number] Co mmon 00:00:00 00:00:00 [facility] 2022-08-30 2022-08-30 OFFICE STLMLC STLMLC [id number] Co mmon 00:00:00 00:00:00 VISIT [facility] LEVEL 4 [facility] 2022-08-16 2022-08-16 (WEB) STLMLC STLMLC [id number] Co mmon 00:00:00 00:00:00 [facility] 2022-07-19 2022-07-19 (WEB) STLMLC STLMLC [id number] Co mmon 00:00:00 00:00:00 [facility] 2022-07-12 2022-07-12 (WEB) STLMLC STLMLC [id number] Co mmon 00:00:00 00:00:00 [facility] 2022-07-07 2022-07-07 (WEB) STLMLC STLMLC [id number] Co mmon 00:00:00 00:00:00 [facility] 2022-07-02 2022-07-02 (WEB) STLMLC STLMLC [id number] Co mmon 00:00:00 00:00:00 [facility] 2022-06-22 2022-06-22 [facility] Dexter, 1.2.840.1 [id number] [id number] Method 00:00:00 00:00:00 Orders Nadim 33183.1.[address] 3.430.2.7 Hospit a .3.614782 l .8 2022-06-22 2022-06-22 (WEB) STLMLC STLMLC [id number] Co mmon 00:00:00 00:00:00 [facility] 2022-05-28 2022-05-28 OFFICE STLMLC STLMLC [id number] Co mmon 00:00:00 00:00:00 VISIT [facility] PT - CHI LEVEL 4 [facility] 2022-05-15 2022-05-15 (WEB) STLMLC STLMLC [id number] Co mmon 00:00:00 00:00:00 [facility] 2022-03-23 2022-03-23 (WEB) STLMLC STLMLC [id number] Co mmon 00:00:00 00:00:00 [facility] 2022-03-05 2022-03-05 (TEL) STLMLC STLMLC [id number] Co mmon 00:00:00 00:00:00 [facility] 2022-03-04 2022-03-04 (WEB) STLMLC STLMLC [id number] Co mmon 00:00:00 00:00:00 [facility] 2022-02-24 2022-02-24 OFFICE STLMLC STLMLC [id number] Co mmon 00:00:00 00:00:00 VISIT [facility] PT - CHI LEVEL 4 [facility] 2022-02-19 2022-02-19 (WEB) STLMLC STLMLC [id number] Co mmon 00:00:00 00:00:00 [facility] 2022-02-03 2022-02-03 (TEL) STLMLC STLMLC [id number] Co mmon 00:00:00 00:00:00 [facility] 2022-02-03 2022-02-03 (WEB) STLMLC STLMLC [id number] Co mmon 00:00:00 00:00:00 [facility] 2022-02-02 2022-02-02 (WEB) STLMLC STLMLC [id number] Co mmon 00:00:00 00:00:00 [facility] 2021-12-21 2021-12-21 Outpatient COH COH PDPFFPN YGR COH 00:00:00 00:00:00 [id number] 2021-12-21 2021-12-21 (WEB) STLMLC STLMLC [id number] Co mmon 00:00:00 00:00:00 [facility] 2021-12-11 2021-12-11 Patient Tico, 1.2.840.1 [id number] Methodi 00:00:00 00:00:00 Outreach Deann 15126.1.[address] 3.430.2.7 Hospit a .3.902521 l .8 2021-12-09 2021-12-10 [facility], 1.2.840.1 [id number] 02937 90284 Methodi 08:54:00 09:53:00 Encounter Barney 08184.1.[address] 3.430.2.7 Hospit a .3.717043 l .8 2021-12-09 2021-12-10 Outpatient [facility] [id number] [place] [address] 00:00:00 00:00:00 NADIM [address] 2021-12-09 2021-12-09 Anesthesia Schaefer, 1.2.840.1 [id number] 826 [id number] Methodi 10:50:00 13:25:00 Event Jennifer 33374.1.[address] Valentin 3.430.2.7 Hospit a .3.773590 l .8 2021-12-09 2021-12-09 Surgery Dexter, 1.2.840.1 [id number] 8294 Methodi 10:30:00 12:10:[address] 3.430.2.7 Hospit a .3.749492 l .8 2021-12-09 2021-12-09 Travel 1.2.840.1 1.2.442.114 4330 096795 Methodi 00:00:00 00:00:[address] 3.430.2.7 0.2.7.3.698 Ho spita .3.123644 084.8 l .8 2021-12-07 2021-12-07 Lab Dexter, 1.2.840.1 [id number] 652385 5882 Methodi 09:55:00 10:00:[address] 3.430.2.7 Hospit a .3.234843 l .8 2021-12-07 2021-12-07 Travel 1.2.840.1 1.2.781.264 9333 213593 Methodi 00:00:00 00:00:[address] 3.430.2.7 0.2.7.3.698 Ho spita .3.205392 084.8 l .8 2021-12-07 2021-12-07 Outpatient DEXTER, [facility] [id number] [place] 00:00:00 00:00:00 NADIM [address] 2021-12-02 2021-12-02 (WEB) STLMLC STLMLC [id number] Co mmon 00:00:00 00:00:00 [facility] 2021-12-01 2021-12-01 [facility] Dexter, 1.2.840.1 613659444 2100 306362 Methodi 00:00:00 00:00:00 Orders Nadim 68159.1.[address] 3.430.2.7 Hospit a .3.961798 l .8 2021-12-01 2021-12-01 (WEB) STLMLC STLMLC [id number] Co mmon 00:00:00 00:00:00 [facility] 2021-12-01 2021-12-01 [facility] Dexter, 1.2.840.1 [id number] 2099 519504 Methodi 00:00:00 00:00:00 Orders Nadim 72821.1.[address] 3.430.2.7 Hospit a .3.083874 l .8 2021-11-30 2021-11-30 (WEB) STLMLC STLMLC [id number] Co mmon 00:00:00 00:00:00 [facility] 2021-11-25 2021-11-25 Anesthesia Shailesh, 1.2.840.1 [id number] 372 [id number] Methodi 15:00:00 15:00:00 Event Jennifer 07715.1.[address] Ashley 3.430.2.7 Hospit a .3.694777 l .8 2021-11-25 2021-11-25 [facility], 1.2.840.1 [id number] 04084 53323 Methodi 07:05:00 08:00:00 Encounter Barney 07243.1.[address] 3.430.2.7 Hospit a .3.209941 l .8 2021-11-25 2021-11-25 [facility] [id number] [place] [address] 00:00:00 00:00:00 Encounter NADIM [address] 2021-11-25 2021-11-25 (WEB) STLMLC STLMLC [id number] Co mmon 00:00:00 00:00:00 [facility] 2021-11-24 2021-11-24 Lab Dexter, 1.2.840.1 [id number] 5816 Methodi 11:55:18 12:00:[address] 3.430.2.7 Hospit a .3.019996 l .8 2021-11-24 2021-11-24 Lab Dexter, 1.2.840.1 [id number] 959256 2908 Methodi 11:55:00 12:00:[address] 3.430.2.7 Hospit a .3.064075 l .8 2021-11-24 2021-11-24 Travel 1.2.840.1 1.2.719.954 8479 658682 Methodi 00:00:00 00:00:[address] 3.430.2.7 0.2.7.3.698 Ho spita .3.787247 084.8 l .8 2021-11-24 2021-11-24 Travel 1.2.840.1 1.2.954.667 3827 038726 Methodi 00:00:00 00:00:[address] 3.430.2.7 0.2.7.3.698 Ho spita .3.882306 084.8 l .8 2021-11-23 2021-11-23 OFFICE STLMLC STLMLC [id number] Co mmon 00:00:00 00:00:00 VISIT [facility] PT - CHI LEVEL 4 [facility] 2021-11-23 2021-11-23 SUB ANNUAL STLMLC STLMLC [id number] Common 00:00:00 00:00:00 MCR [facility] WELLNESS - CHI VISIT [facility] 2021-11-18 2021-11-18 (TEL) STLMLC STLMLC [id number] Co mmon 00:00:00 00:00:00 Spirit - CHI [facility] 2021-11-10 2021-11-10 (WEB) STLMLC STLMLC [id number] Co mmon 00:00:00 00:00:00 Spirit - CHI [facility] 2021-11-09 2021-11-09 Travel 1.2.840.1 1.2.254.845 4768 920229 Methodi 00:00:00 00:00:[address] 3.430.2.7 0.2.7.3.698 Ho spita .3.497095 084.8 l .8 2021-11-09 2021-11-09 Travel 1.2.840.1 1.2.997.615 7534 191423 Methodi 00:00:00 00:00:[address] 3.430.2.7 0.2.7.3.698 Ho spita .3.498200 084.8 l .8 2021-11-09 2021-11-09 (WEB) STLMLC STLMLC [id number] Co mmon 00:00:00 00:00:00 [facility] 2021-11-09 2021-11-09 (WEB) STLMLC STLMLC [id number] Co mmon 00:00:00 00:00:00 [facility] 2021-11-06 2021-11-06 (WEB) STLMLC STLMLC [id number] Co mmon 00:00:00 00:00:00 [facility] 2021-10-22 2021-10-22 Community Dexter, 1.2.840.1 [id number] 2099 [id number] Methodi 00:00:00 00:00:00 Orders Nadim 80678.1.[address] 3.430.2.7 Hospit a .3.092076 l .8 2021-10-22 2021-10-22 Community Dexter, 1.2.840.1 [id number] 2099 586163 Methodi 00:00:00 00:00:00 Orders Nadim 96767.1.[address] 3.430.2.7 Hospit a .3.033660 l .8 2021-09-15 2021-09-15 (WEB) STLMLC STLMLC [id number] Co mmon 00:00:00 00:00:00 [facility] 2021-09-10 2021-09-10 (WEB) STLMLC STLMLC [id number] Co mmon 00:00:00 00:00:00 [facility] 2021-08-26 2021-08-26 (WEB) STLMLC STLMLC [id number] Co mmon 00:00:00 00:00:00 [facility] 2021-08-18 2021-08-18 Ambulatory nullFlavo MNA [id number] Memoria 15:45:00 15:45:00 Pre-Reg r Neurology 11 l [place] Barber 2021-08-18 2021-08-18 Ambulatory nullFlavo MNA [id number] Memoria 15:45:00 15:45:00 Pre-Reg r Neurology 11 l Wacoforrest Maddoxann 2021-08-18 2021-08-18 Outpatient MHIE RENE [id number] Memoria 10:45:00 10:45:00 Mahnaz Blandon 2021-08-18 2021-08-18 Outpatient NOE Garza [id number] 10:45:00 10:45:00 Terrance Mahajan 2021-08-13 2021-08-13 OFFICE STLMLC STLMLC [id number] Co mmon 00:00:00 00:00:00 VISIT [facility] 4 [facility] 2021-08-12 2021-08-12 (WEB) STLMLC STLMLC [id number] Co mmon 00:00:00 00:00:00 [facility] 2021-06-13 2021-06-13 Outpatient STLMLC STLMLC [id number] Common 00:00:00 00:00:00 [facility] 2021-06-12 2021-06-12 Outpatient STLMLC STLMLC [id number] Common 00:00:00 00:00:00 [facility] 2021-05-18 2021-05-18 Outpatient STLMLC STLMLC [id number] Common 00:00:00 00:00:00 [facility] 2021-04-15 2021-04-15 Outpatient STLMLC STLMLC [id number] Common 00:00:00 00:00:00 [facility] 2021-03-31 2021-03-31 Outpatient STLMLC STLMLC [id number] Common 00:00:00 00:00:00 [facility] 2021-03-13 2021-03-13 Outpatient STLMLC STLMLC [id number] Common 00:00:00 00:00:00 [facility] 2021-02-24 2021-02-24 Outpatient STLMLC STLMLC [id number] Common 00:00:00 00:00:00 [facility] 2021-02-12 2021-02-12 Outpatient STLMLC STLMLC [id number] Common 00:00:00 00:00:00 [facility] 2021-02-05 2021-02-05 Outpatient STLMLC STLMLC [id number] Common 00:00:00 00:00:00 [facility] 2021-01-08 2021-01-08 Outpatient STLMLC STLMLC [id number] Common 00:00:00 00:00:00 [facility] 2020-12-31 2020-12-31 Outpatient STLMLC STLMLC [id number] Common 00:00:00 00:00:00 [facility] 2020-12-12 2020-12-21 [facility] [id number] Memoria 22:32:00 19:10:00 r Talmage 43 [facility] 2020-12-12 2020-12-21 Inpatient [facility] [id number] Memoria 22:32:00 19:10:00 [facility] 43 [facility] 2020-12-12 2020-12-21 Outpatient Greg, MHPL MHPL [id number] 16:32:00 13:10:00 Olasunkleesami 43 W 2020-12-12 2020-12-21 Outpatient Greg, MHPL MHPL [id number] 16:32:00 13:10:00 Olasunkanmi 43 W 2020-12-12 2020-12-21 Inpatient U GREG, MHBL MED [id number] MHBL 16:32:00 13:10:00 SHANELEESAMN 2020-12-12 2020-12-12 AppointKENTON Dsouza [id number] [place] 13:15:00 13:15:00 tNIRAV ROBB Phy sici BENNET, M.D. ans M.D. 2020-12-10 2020-12-10 Outpatient STLMLC STLMLC [id number] Common 00:00:00 00:00:00 [facility] 2020-12-09 2020-12-09 Outpatient STLMLC STLMLC [id number] Common 00:00:00 00:00:00 [facility] 2020-12-08 2020-12-08 Outpatient STLMLC STLMLC [id number] Common 00:00:00 00:00:00 [facility] 2020-12-08 2020-12-08 Outpatient STLMLC STLMLC [id number] Common 00:00:00 00:00:00 [facility] 2020-12-02 2020-12-02 Outpatient STLMLC STLMLC [id number] Common 00:00:00 00:00:00 [facility] 2020-11-25 2020-11-25 Outpatient STLMLC STLMLC [id number] Common 00:00:00 00:00:00 [facility] 2020-11-17 2020-11-23 [facility]patient [facility] [id number] Memoria 20:02:47 20:45:00 [facility] 2020-11-17 2020-11-23 Inpatient [facility] [id number] Memoria 20:02:47 20:45:[address] 2020-11-17 2020-11-23 Inpatient E MELANIE MHBL MED [facility] MHBL 20:45:00 14:45:[address] [facility] 2020-11-17 2020-11-23 Outpatient Melanie, MHPL MHPL [id number] 14:02:47 14:45:00 [facility] 2020-11-17 2020-11-23 Outpatient Mayjaime, MHPL MHPL [id number] 14:02:47 14:45:00 [facility] 2020-11-21 2020-11-21 Outpatient STLMLC STLMLC [id number] Common 00:00:00 00:00:00 [facility] 2020-11-04 2020-11-04 Outpatient STLMLC STLMLC [id number] Common 00:00:00 00:00:00 [facility] 2020-10-29 2020-10-29 Outpatient STLMLC STLMLC [id number] Common 00:00:00 00:00:00 [facility] 2020-10-20 2020-10-20 Outpatient STLMLC STLMLC [id number] Common 00:00:00 00:00:00 [facility] 2020-10-20 2020-10-20 Outpatient STLMLC STLMLC [id number] Common 00:00:00 00:00:00 [facility] 2020-10-06 2020-10-06 Outpatient STLMLC STLMLC [id number] Common 00:00:00 00:00:00 [facility] 2020-10-01 2020-10-01 Outpatient STLMLC STLMLC [id number] Common 00:00:00 00:00:00 [facility] 2020-08-18 2020-08-18 Outpatient STLMLC STLMLC [id number] Common 00:00:00 00:00:00 [facility] 2020-08-15 2020-08-16 Outpatient nullFlavo MNA [id number] Memoria 15:30:00 04:59:59 r Neurology 10 l Bhavna Talmage 2020-08-15 2020-08-16 Outpatient nullFlavo MNA [id number] Memoria 15:30:00 04:59:59 r Neurology 10 l Bhavna Talmage 2020-08-15 2020-08-15 Outpatient IRAIS GarzaMISCHER MHMISCHER [id number] 10:30:00 23:59:59 Terrance 10 Keyshawn 2020-08-15 2020-08-15 Ambulatory nullFlavo MNA [id number] Memoria 15:30:00 15:30:00 Pre-Reg r Neurology 09 l Bhavna Blandon 2020-08-15 2020-08-15 Ambulatory nullFlavo MNA [id number] Memoria 15:30:00 15:30:00 Pre-Reg r Neurology 09 l [place] 2020-08-15 2020-08-15 Outpatient MHIE MHIE [id number] Memoria 10:30:00 10:30:00 10 l Barber 2020-08-15 2020-08-15 Outpatient MHIE MHIE [id number] Memoria 10:30:00 10:30:00 09 l Talmage 2020-08-15 2020-08-15 Outpatient IRAIS GarzaMISCHER MHMISCHER [id number] 10:30:00 10:30:00 Terrance 09 Keyshawn 2020-08-11 2020-08-11 Outpatient STLMLC STLMLC [id number] Common 00:00:00 00:00:00 [facility] 2020-06-13 2020-06-13 [facility] [id number] Common 14:20:00 14:20:[address] [facility] 2020-06-11 2020-06-11 Outpatient [facility] [id number] Common 10:45:00 10:45:00 [address] [facility] 2020-03-27 2020-03-27 Outpatient [facility] [id number] Common 10:35:00 10:35:00 [address] [facility] 2020-03-10 2020-03-10 Outpatient [facility] [id number] Common 08:00:00 08:00:00 [address] [facility] 2020-03-03 2020-03-03 Outpatient [facility] [id number] Common 10:15:00 10:15:00 [address] [facility] 2020-02-26 2020-02-26 Outpatient [facility] [id number] Common 12:19:00 12:19:00 [address] [facility] 2020-01-14 2020-01-14 Outpatient [facility] [id number] Common 10:45:00 10:45:00 [address] [facility] 2020-01-04 2020-01-05 Outpatient nullFlavo MNA [id number] Memoria 17:45:00 05:59:59 r Neurology 08 l Bhavna Blandon 2020-01-04 2020-01-05 Outpatient nullFlavo MNA [id number] Memoria 17:45:00 05:59:59 r Neurology 08 l Bhavna Blandon 2020-01-04 2020-01-04 Outpatient NOE Garza [id number] 11:45:00 23:59:59 Terrance Mahajan 2020-01-04 2020-01-04 Outpatient IRAISIE RENE [id number] Memoria 11:45:00 11:45:00 08 irineo Blandon 2020-01-03 2020-01-03 [facility] [id number] Common 16:51:00 16:51:00 [address] [facility] 2019-12-25 2019-12-25 Outpatient [facility] [id number] Common 08:20:00 08:20:00 [address] [facility] 2019-12-17 2019-12-17 Outpatient [facility] [id number] Common 11:00:00 11:00:00 [address] [facility] 2019-11-23 2019-11-24 Outpatient nullFlavo MNA [id number] Memoria 16:00:00 05:59:59 r Neurology 07 l Bhavna Talmage 2019-11-23 2019-11-24 Outpatient nullFlavo MNA [id number] Memoria 16:00:00 05:59:59 r Neurology 07 l Bhavna Talmage 2019-11-23 2019-11-23 Outpatient IRAIS GrazaMISCHER MISCHER [id number] 10:00:00 23:59:59 Terrance Alfredo Mahajan 2019-11-23 2019-11-23 Outpatient MHIE RENE [id number] Memoria 10:00:00 10:00:00 07 irineo Blandon 2019-11-08 2019-11-08 [facility] [id number] Common 15:00:00 15:00:00 [address] [facility] 2019-11-06 2019-11-06 Ambulatory nullFlavo MNA [id number] Memoria 15:45:00 15:45:00 Pre-Reg r Neurology 06 l Bhavna Blandon 2019-11-06 2019-11-06 Ambulatory nullFlavo MNA [id number] Memoria 15:45:00 15:45:00 Pre-Reg r Neurology 06 l Bhavna Blandon 2019-11-06 2019-11-06 Outpatient MHIE MHIE [id number] Memoria 09:45:00 09:45:00 06 irineo Blandon 2019-11-06 2019-11-06 Outpatient [id number] 09:45:00 09:45:00 Terrance Michael Mahajan 2019-09-05 2019-09-07 Outside nullFlavo MNA [id number] Memoria 20:23:36 05:59:59 Medical r Neurology 01 l Waldemar Blandon 2019-09-05 2019-09-07 Outside nullFlavo MNA [id number] Memoria 20:23:36 05:59:59 Medical r Neurology 01 l Records Bhavna Blandon 2019-09-05 2019-09-06 Outpatient MHMISCHER MHMISCHER [id number] 14:23:36 23:59:59 2019-08-08 2019-08-08 Ambulatory nullFlavo MNA [id number] Memoria 18:00:00 18:00:00 Pre-Reg r Neurology 05 irineo Blandon 2019-08-08 2019-08-08 Ambulatory nullFlavo MNA [id number] Memoria 18:00:00 18:00:00 Pre-Reg r Neurology 05 irineo Maddoxann 2019-08-08 2019-08-08 Outpatient MHIE MHIE [id number] Memoria 13:00:00 13:00:00 05 irineo Blandon 2019-08-08 2019-08-08 Outpatient ALEJANDRO [id number] 13:00:00 13:00:00 Terranceezequiel Mahajan 2019-01-03 2019-01-03 Outpatient MHIE MHIE [id number] Memoria 13:00:00 13:00:00 04 irineo Barber 2019-01-03 2019-01-03 Outpatient MHIE MHIE [id number] Memoria 13:00:00 13:00:00 04 irineo Barber 2018-08-30 2018-08-31 Outpatient nullFlavo MNA [id number] Memoria 18:30:00 04:59:59 r Neurology 03 irineo [place] Barber 2018-08-30 2018-08-31 Outpatient nullFlavo MNA [id number] Memoria 18:30:00 04:59:59 r Neurology 03 irineo [place] Barber 2018-08-30 2018-08-30 Outpatient IRAIS GarzaMISCHER MHMISCHER [id number] 13:30:00 23:59:59 Terrance 03 Keyshawn 2018-08-30 2018-08-30 Outpatient RENE LÓPEZ [id number] Memoria 13:30:00 13:30:00 03 irineo Blandon 2018-07-19 2018-07-19 Outpatient MHIE RENE [id number] Memoria 13:30:00 13:30:00 02 irineo Blandon 2018-07-19 2018-07-19 Outpatient IE RENE [id number] Memoria 13:30:00 13:30:00 02 irineo Blandon 2018-03-17 2018-03-17 Outpatient IE RENE [id number] Memoria 08:45:00 08:45:00 01 irineo [place] 2018-03-17 2018-03-17 Outpatient IE DANA [id number] Memoria 08:45:00 08:45:00 01 irineo Barber 2018-03-10 2018-03-10 Outpatient IE RENE [id number] Memoria 16:15:00 16:15:00 00 irineo Talmage 2018-03-10 2018-03-10 Outpatient IE DANA [id number] Memoria 16:15:00 16:15:00 00 irineo Blandon Results Test Description Test Time Test Comments Results Result Comments Source ECG Pre/Post Op-Tomorrow 2021-12-11 04:43:43 Test Item Value Reference Range Interpretation Comme nts Ventricular rate (test code = 253) Atrial rate (test code = 255) QRSD interval (test code = 260) QT interval (test code = 264) QTC interval (test code = 265) P axis 1 (test code = 267) QRS axis 1 (test code = 268) T wave axis (test code = 270) EKG impression (test code = 273) Ventricular-paced rhythm with occa sional premature ventricular complexes-Abnormal ECG-In automated comparison with ECG of 09-DEC-2021 09:19,-Electronic ventricular pacemaker has replaced Sinus rhythm- [facility] 12 [id number] 03:55:37 Test Item Value Reference Range Interpretation Comments Ventricular rate (test code = 253) Atrial rate (test code = 255) NH interval (test code = 266) QRSD interval (test code = 260) QT interval (test code = 264) QTC interval (test code = 265) P axis 1 (test code = 267) QRS axis 1 (test code = 268) T wave axis (test code = 270) EKG impression (test Sinus rhythm with code = 273) marked sinus arrhythmia with 1st degree AV block with occasional premature ventricular complexes-Left axis deviation-Possible Anterior infarct , age undetermined-Abnormal ECG-No previous ECGs available-Electronical ly Signed By Dave Lopez MD ([id number]) on 12/09/2021 9:55:33 PM [facility] [id number] 16:50:00 Test Item Value Reference Range Interpretation Comments ABO grouping (test code = 883-9) A Rh type (test code = 97529-9) POS Antibody screen (gel) (test code = NEG 890-4) [facility] [id number] 15:55:22 Test Item Value Reference Range Interpretation Comments POC sodium (test code = 141 mmol/L 650-505 5710-0) POC potassium (test 3.6 mmol/L 3.5-5.0 code = 6298-4) POC chloride (test code 99 mmol/L 99-109 = 2069-3) POC CO2 (test code = 27 mmol/L 24-31 31727-9) POC glucose (test code 100 mg/dL 65-99 H = 2339-0) POC BUN (test code = 37 mg/dL 8-24 H 6299-2) POC creatinine (test 1.8 mg/dl 0.7-1.2 H code = 65729-4) POC hematocrit (test 45 % 41-51 code = 4544-3) POC anion gap (test 19 mmol/L 8-20 Agricultural Engineer Name: code = 8656400) Kacie Mata Mariana ID: [id number] Lab Interpretation Abnormal (test code = 47778-8) [facility] [id number] 15:55:22 Test Item Value Reference Range Interpretation Comments Estimated GFR (test mL/min/1.73 m2 A Edie diaz Units code = 19667-1) Interpretati onG1 >=90 Normal or highG 2 60-89 Mildly decrease dG3a 45-59 Mildly to moderately decr rledfH0w 30-44 Moderatel y to severely decrea sedG4 15-29 Severely decreasedG5 <15 Kidney failureThe eGFR was calculated usin g the Chronic Kidney Disease Epidemiology Collaboration ( CKD-EPI) equation. Interpretation is based on recommendati ons of the [facility]-Kid[facility] ey Disease Outcome s Quality Initiat erin (F-KDOQI) pub lished in 2013. Lab Interpretation Abnormal (test code = 30784-0) [facility] Omicron variant qualitative [id number] 01:50:40 Test Item Value Reference Range Interpretation Comments Interpretation (test The SARS-CoV-2 N code = 9996897) gene and ORF1ab gene but not the S gene were detected. This pattern is suggestive of the SARS-CoV-2 omicron variant. COVID-19 variant Omicron result (test code = 8191) COVID-19 Omicron See link below Case Numb er: variant qualitative for PDF Lab [id number] RT-PCR (test code = Report 8190) [facility] qualitative [id number] 22:00:30 Test Item Value Reference Range Interpretation Comments Interpretation (test Positive results are code = 4330876) indicative of active infection with 2019-nCoV but do not rule out bacterial infection or coinfection with other viruses. The agent detected may not be the definite cause of disease. In addition to reinfection or new infection, positive results following COVID-19 recovery may be caused by residual viral acid fragments persisting in the upper respiratory tract, subgenomic particles, or other factors associated with noninfectious virus. Clinical correlation is recommended. COVID-19 qualitative Detected Not-Detected A RT-PCR result (test code = 53755-9) COVID-19 qualitative See link below for C ase Number: RT-PCR (test code = PDF Lab Report [id number]) Lab Interpretation Abnormal (test code = 60209-8) [facility] [Presence] in Respiratory specimen by NATHALY with probe [id number] 15:59:25 Test Item Value Reference Range Interpretation Comments SARS-CoV-2 (COVID-19) RNA [Presence] Detected Not-Detected in Respiratory specimen by NATHALY with probe detection (test code = 59387-7) Whether patient is employed in a healthcare setting (test code = 68972-4) Whether the patient has symptoms related to condition of interest (test code = 25762-5) Patient was hospitalized because of this condition (test code = 14968-7) Whether the patient was admitted to intensive care unit (ICU) for condition of interest (test code = 39552-1) Whether patient resides in a congregate care setting (test code = 11006-0) [facility] Omic[place] variant qualitative [id number] 03:48:49 Test Item Value Reference Range Interpretation Comments Interpretation (test Variant analysis code = 0003270) cannot be determined. COVID-19 variant Indeterminate result (test code = 8191) COVID-19 Omicron See link below for Case Number: variant qualitative PDF Lab Report [id number] RT-PCR (test code = 8190) [facility] qualitative [id number] 23:40:34 Test Item Value Reference Range Interpretation Comments Interpretation (test Positive results are code = 8505313) indicative of active infection with 2019-nCoV but do not rule out bacterial infection or coinfection with other viruses. The agent detected may not be the definite cause of disease. In addition to reinfection or new infection, positive results following COVID-19 recovery may be caused by residual viral acid fragments persisting in the upper respiratory tract, subgenomic particles, or other factors associated with noninfectious virus. Clinical correlation is recommended. COVID-19 qualitative Detected Not-Detected A RT-PCR result (test code = 17736-5) COVID-19 qualitative See link below for C ase Number: RT-PCR (test code = PDF Lab Report [id number]) Lab Interpretation Abnormal (test code = 38692-7) [facility] CenterUyhospjvGKJA-HxQ-5 (COVID-19) RNA [Presence] in Respiratory specimen by NATHALY with probe [id number] 17:39:24 Test Item Value Reference Range Interpretation Comments SARS-CoV-2 (COVID-19) RNA [Presence] Detected Not-Detected in Respiratory specimen by NATHALY with probe detection (test code = 33553-7) Whether patient is employed in a healthcare setting (test code = 60086-6) Whether the patient has symptoms related to condition of interest (test code = 69717-2) Patient was hospitalized because of this condition (test code = 18783-0) Whether the patient was admitted to intensive care unit (ICU) for condition of interest (test code = 06193-4) Whether patient resides in a congregate care setting (test code = 15791-9) [facility]OIST WESTLipid Panel With LDL/HDL [id number] 00:00:00 Test Item Value Reference Range Interpretation Comments Cholesterol, Total (test code = 2093-3) 106 100-199 Triglycerides (test code = 2571-8) 83 0-149 HDL Cholesterol (test code = 2085-9) 33 >39 Thyroid Panel With [id number] 00:00:00 Test Item Value Reference Range Interpretation Comments TSH (test code = 24225-3) 5.180 0.450-4.500 Thyroxine (T4) (test code = 3026-2) 8.6 4.5-12.0 T3 Uptake (test code = 3050-2) 36 24-39 Free Thyroxine Index (test code = 3.1 1.2-4.9 33126-9) Comp. Metabolic Panel (14) (CMP)2021-11-17 00:00:00 Test Item Value Reference Range Interpretation Comments Glucose (test code = 2345-7) 103 65-99 BUN (test code = 3094-0) 35 8-27 Creatinine (test code = 2160-0) 2.08 0.76-1.27 eGFR If NonAfricn Am (test code = 30 >59 54960-2) eGFR If Africn Am (test code = 46834-1) 35 >59 BUN/Creatinine Ratio (test code = 16 08- 3097-3) Sodium (test code = 2951-2) 143 134-144 Potassium (test code = 2823-3) 4.6 3.5-5.2 Chloride (test code = 2075-0) 103 96-106 Carbon Dioxide, Total (test code = -2028-07) Calcium (test code = 97588-8) 9.4 8.6-10.2 Protein, Total (test code = 2885-2) 6.3 6.0-8.5 Albumin (test code = 1751-7) 4.0 3.7-4.7 Globulin, Total (test code = 79862-4) 2.3 1.5-4.5 A/G Ratio (test code = 1759-0) 1.7 1.2-2.2 Bilirubin, Total (test code = 1974-2) 1.7 0.0-1.2 Alkaline Phosphatase (test code = 98 44-121 6768-6) AST (SGOT) (test code = 1920-8) 37 0-40 ALT (SGPT) (test code = 1742-6) 44 0-44 Uric Acid, [id number] 00:00:00 Test Item Value Reference Range Interpretation Comments Uric Acid (test code = 3084-1) 11.6 3.8-8.4 CBC With Differential/[id number] 00:00:00 Test Item Value Reference Range Interpretation Comments WBC (test code = 6690-2) 5.1 3.4-10.8 RBC (test code = 789-8) 4.16 4.14-5.80 Hemoglobin (test code = 718-7) 14.5 13.0-17.7 Hematocrit (test code = 4544-3) 43.0 37.5-51.0 MCV (test code = 787-2) 103 79-97 MCH (test code = 785-6) 34.9 26.6-33.0 MCHC (test code = 786-4) 33.7 31.5-35.7 RDW (test code = 788-0) 12.1 11.6-15.4 Platelets (test code = 777-3) 152 150-450 Neutrophils (test code = 770-8) 48 Not Estab. Lymphs (test code = 736-9) 40 Not Estab. Monocytes (test code = 5905-5) 8 Not Estab. Eos (test code = 713-8) 3 Not Estab. Basos (test code = 706-2) 1 Not Estab. Immature Cells (test code = UNLOINC) Neutrophils (Absolute) (test code = 2.4 1.4-7.0 751-8) Lymphs (Absolute) (test code = 731-0) 2.0 0.7-3.1 Monocytes(Absolute) (test code = 742-7) 0.4 0.1-0.9 Eos (Absolute) (test code = 711-2) 0.2 0.0-0.4 Baso (Absolute) (test code = 704-7) 0.0 0.0-0.2 Immature Granulocytes (test code = 0 Not Estab. 96100-3) Immature Grans (Abs) (test code = 0.0 0.0-0.1 60464-3) NRBC (test code = 61483-0) Hematology Comments: (test code = 53113-9) [QL] CBC (INCLUDES DIFF/PLT)2020-12-31 14:00:00 Test Item Value Reference Range Interpretation Comments WBC (test code = 6690-2) 6.8 {x10E3/uL} 3.4-10.8 RBC (test code = 789-8) 4.57 {x10E6/uL} 4.14-5.80 Hemoglobin (test code = 13.4 g/dL 13.0-17.7 718-7) Hematocrit (test code = 42.7 % 37.5-51.0 4544-3) MCV (test code = 787-2) 93 fL 79-97 MCH (test code = 785-6) 29.3 pg 26.6-33.0 MCHC; Below Low Threshold 31.4 g/dL 31.5-35.7 (test code = 786-4) RDW (test code = 788-0) 15.1 % 11.6-15.4 Platelets (test code = 777-3) 209 {x10E3/uL} 150-450 Neutrophils (test code = 55 % Not Estab. 770-8) Lymphs (test code = 736-9) 30 % Not Estab. Monocytes (test code = 7 % Not Estab. 5905-5) Eos (test code = 713-8) 7 % Not Estab. Basos (test code = 706-2) 1 % Not Estab. Immature Cells (test code = See Comment Immature Cells) Neutrophils (Absolute) (test 3.7 {x10E3/uL} 1.4-7.0 code = 751-8) Lymphs (Absolute) (test code 2.0 {x10E3/uL} 0.7-3.1 = 731-0) Monocytes(Absolute) (test 0.4 {x10E3/uL} 0.1-0.9 code = 742-7) Eos (Absolute); Above High 0.5 {x10E3/uL} 0.0-0.4 Threshold (test code = 711-2) Baso (Absolute) (test code = 0.1 {x10E3/uL} 0.0-0.2 704-7) Immature Granulocytes (test 0 % Not Estab. code = 91820-0) Immature Grans (Abs) (test 0.0 {x10E3/uL} 0.0-0.1 code = 20022-3) NRBC (test code = 38195-9) See Comment Hematology Comments: (test See Comment code = 89469-0) [facility][QL] BASIC METABOLIC PANEL [id number] 14:00:00 Test Item Value Reference Range Interpretation Comments Glucose; Above High Threshold 101 mg/dL 65-99 (test code = 2345-7) BUN (test code = 3094-0) 19 mg/dL 8-27 Creatinine (test code = 2160-0) 1.15 mg/dL 0.76-1.27 eGFR If NonAfrcn Am (test code 62 mL/min/1.7 >59 = 34508-1) eGFR If Africn Am (test code = 72 mL/min/1.7 >59 86111-7) BUN/Creatinine Ratio (test code 17 -24 = 3097-3) Sodium, Serum (test code = 137 mmol/L 170-767 4563-2) Potassium (test code = 2823-3) 3.8 mmol/L 3.5-5.2 Chloride; Below Low Threshold 94 mmol/L 96-106 (test code = 2075-0) Carbon Dioxide, Total (test 28 mmol/L 20-29 code = 8-9) Calcium (test code = 18112-7) 8.7 mg/dL 8.6-10.2 [facility][QL] [id number] 14:00:00 Test Item Value Reference Range Interpretation Comments Magnesium, Serum (test code = 1.8 mg/dL 1.6-2.3 31019-9) [facility][QL] B TYPE NATRIURETIC PEPTIDE (BNP)2020-12-31 14:00:00 Test Item Value Reference Range Interpretation Comments B-Type Natriuretic Peptide; 1600.1 pg/mL 0.0-100.0 Above High Threshold (test code = 33471-0) [facility]2021-02-21 16:05:00 Test Item Value Reference Range Interpretation Comments Glucose Lvl (test code = Glucose Lvl) 98 70-99 [facility]2021-02-21 16:05:00 Test Item Value Reference Range Interpretation Comments BUN (test code = BUN) 37 7-22 [facility]2021-02-21 16:05:00 Test Item Value Reference Range Interpretation Comments Creatinine Lvl (test code = Creatinine 1.65 0.50-1.40 Lvl) [facility]2021-02-21 16:05:00 Test Item Value Reference Range Interpretation Comments Sodium Lvl (test code = Sodium Lvl) 131 135-145 [facility]2021-02-21 16:05:00 Test Item Value Reference Range Interpretation Comments Potassium Lvl (test code = Potassium 3.5 3.5-5.1 Lvl) [facility]2021-02-21 16:05:00 Test Item Value Reference Range Interpretation Comments Chloride Lvl (test code = Chloride Lvl) 96 95-109 [facility]2021-02-21 16:05:00 Test Item Value Reference Range Interpretation Comments CO2 (test code = CO2) 27 24-32 [facility]2021-02-21 16:05:00 Test Item Value Reference Range Interpretation Comments Calcium Lvl (test code = Calcium Lvl) 8.6 8.5-10.5 [facility]2021-02-21 16:05:00 Test Item Value Reference Range Interpretation Comments AGAP (test code = AGAP) 11.5 10.0-20.0 [facility]2021-02-21 16:05:00 Test Item Value Reference Range Interpretation Comments eGFR (test code = eGFR) 40 [facility]2021-02-21 16:05:00 Test Item Value Reference Range Interpretation Comments Glucose Lvl (test code = Glucose Lvl) 98 70-99 [facility]2021-02-21 16:05:00 Test Item Value Reference Range Interpretation Comments BUN (test code = BUN) 37 7-22 [facility]2021-02-21 16:05:00 Test Item Value Reference Range Interpretation Comments Creatinine Lvl (test code = Creatinine 1.65 0.50-1.40 Lvl) [facility]2021-02-21 16:05:00 Test Item Value Reference Range Interpretation Comments Sodium Lvl (test code = Sodium Lvl) 131 135-145 [place] 415641-02-21 16:05:00 Test Item Value Reference Range Interpretation Comments Potassium Lvl (test code = Potassium 3.5 3.5-5.1 Lvl) [facility]2021-02-21 16:05:00 Test Item Value Reference Range Interpretation Comments Chloride Lvl (test code = Chloride Lvl) 96 95-109 [facility]2021-02-21 16:05:00 Test Item Value Reference Range Interpretation Comments CO2 (test code = CO2) 27 24-32 [place] 415641-02-21 16:05:00 Test Item Value Reference Range Interpretation Comments Calcium Lvl (test code = Calcium Lvl) 8.6 8.5-10.5 [facility]2021-02-21 16:05:00 Test Item Value Reference Range Interpretation Comments AGAP (test code = AGAP) 11.5 10.0-20.0 [facility]2021-02-21 16:05:00 Test Item Value Reference Range Interpretation Comments eGFR (test code = eGFR) 40 [facility]2021-02-20 11:32:00 Test Item Value Reference Range Interpretation Comments Glucose Lvl (test code = Glucose Lvl) 105 70-99 [facility]2021-02-20 11:32:00 Test Item Value Reference Range Interpretation Comments BUN (test code = BUN) 45 7-22 [facility]2021-02-20 11:32:00 Test Item Value Reference Range Interpretation Comments Creatinine Lvl (test code = Creatinine 1.99 0.50-1.40 Lvl) [facility]2021-02-20 11:32:00 Test Item Value Reference Range Interpretation Comments Sodium Lvl (test code = Sodium Lvl) 130 135-145 [facility]2021-02-20 11:32:00 Test Item Value Reference Range Interpretation Comments Potassium Lvl (test code = Potassium 3.7 3.5-5.1 Lvl) [facility] [id number] 11:32:00 Test Item Value Reference Range Interpretation Comments Chloride Lvl (test code = Chloride Lvl) 96 95-109 [place] 415641-02-20 11:32:00 Test Item Value Reference Range Interpretation Comments CO2 (test code = CO2) 25 24-32 [place] 415641-02-20 11:32:00 Test Item Value Reference Range Interpretation Comments Calcium Lvl (test code = Calcium Lvl) 8.5 8.5-10.5 [facility] [id number] 11:32:00 Test Item Value Reference Range Interpretation Comments Total Protein (test code = Total 5.9 6.4-8.4 Protein) [facility]2021-02-20 11:32:00 Test Item Value Reference Range Interpretation Comments Albumin Lvl (test code = Albumin Lvl) 2.8 3.5-5.0 [facility] [id number] 11:32:00 Test Item Value Reference Range Interpretation Comments ALT (test code = ALT) 326 See_Comment [Auto mated message] The system which ge nerated this result transmit tammi reference range : <=65. The reference range was not used to interpr et this result as josé miguel l/abnormal. [facility] [id number] 11:32:00 Test Item Value Reference Range Interpretation Comments AST (test code = AST) 164 See_Comment [Auto mated message] The system which ge nerated this result transmit tammi reference range : <=37. The reference range was not used to interpr et this result as josé miguel l/abnormal. [facility] [id number] 11:32:00 Test Item Value Reference Range Interpretation Comments Alk Phos (test code = Alk Phos) 97 39-136 [place] 415641-02-20 11:32:00 Test Item Value Reference Range Interpretation Comments Bili Total (test code = Bili Total) 1.6 0.2-1.3 [place] 415641-02-20 11:32:00 Test Item Value Reference Range Interpretation Comments AGAP (test code = AGAP) 12.7 10.0-20.0 [place] 415641-02-20 11:32:00 Test Item Value Reference Range Interpretation Comments B/C Ratio (test code = B/C Ratio) 23 1 6-25 [place] 415641-02-20 11:32:00 Test Item Value Reference Range Interpretation Comments Globulin (test code = Globulin) 3.1 2.7-4.2 [place] 415641-02-20 11:32:00 Test Item Value Reference Range Interpretation Comments A/G Ratio (test code = A/G Ratio) 0.9 1 0.7-1.6 [address]02-20 11:32:00 Test Item Value Reference Range Interpretation Comments eGFR (test code = eGFR) 32 [place] 415641-02-20 11:32:00 Test Item Value Reference Range Interpretation Comments Magnesium Lvl (test code = Magnesium 2.4 1.8-2.4 Lvl) [place] 415641-02-20 11:32:00 Test Item Value Reference Range Interpretation Comments Phosphorus (test code = Phosphorus) 3.6 2.5-4.5 [place] 496421-02-20 11:32:00 Test Item Value Reference Range Interpretation Comments Segs (test code = Segs) 67.5 45.0-75.0 [place] 496421-02-20 11:32:00 Test Item Value Reference Range Interpretation Comments Lymphocytes (test code = Lymphocytes) 21.0 20.0-40.0 [place] 496421-02-20 11:32:00 Test Item Value Reference Range Interpretation Comments Monocytes (test code = Monocytes) 7.2 2.0-12.0 [place] [address]-02-20 11:32:00 Test Item Value Reference Range Interpretation Comments Eosinophils (test code = 3.4 See_Comment [A utomated message] The Eosinophils) system which ge nerated this result tra nsmitted reference range : <=4.0. The reference r princess was not used to int erpret this result as normal/abnormal . [place] [address]-02-20 11:32:00 Test Item Value Reference Range Interpretation Comments Basophils (test code = 0.9 See_Comment [Aut omated message] The Basophils) system which ge nerated this result tra nsmitted reference range : <=1.0. The reference r princess was not used to int erpret this result as normal/abnormal . [place] 496421-02-20 11:32:00 Test Item Value Reference Range Interpretation Comments Neutrophils # (test code = Neutrophils 5.5 1.5-8.1 #) [place] 496421-02-20 11:32:00 Test Item Value Reference Range Interpretation Comments Lymphocytes # (test code = Lymphocytes 1.7 1.0-5.5 #) [place] 496421-02-20 11:32:00 Test Item Value Reference Range Interpretation Comments Monocytes # (test code 0.6 See_Comment [Aut omated message] The = Monocytes #) system which generated this result tra nsmitted reference range : <=0.8. The reference r princess was not used to int erpret this result as normal/abnormal . [place] 496421-02-20 11:32:00 Test Item Value Reference Range Interpretation Comments Eosinophils # (test code 0.3 See_Comment [A utomated message] The = Eosinophils #) system whic h generated this result tra nsmitted reference range : <=0.5. The reference r princess was not used to int erpret this result as normal/abnormal . [facility] [id number] 11:32:00 Test Item Value Reference Range Interpretation Comments Basophils # (test code 0.1 See_Comment [Aut omated message] The = Basophils #) system which generated this result tra nsmitted reference range : <=0.2. The reference r princess was not used to int erpret this result as normal/abnormal . [facility] [id number] 11:32:00 Test Item Value Reference Range Interpretation Comments WBC (test code = WBC) 8.1 3.7-10.4 [place] 496421-02-20 11:32:00 Test Item Value Reference Range Interpretation Comments RBC (test code = RBC) 4.13 4.70-6.10 [place] 496421-02-20 11:32:00 Test Item Value Reference Range Interpretation Comments Hgb (test code = Hgb) 12.3 14.0-18.0 [place] 496421-02-20 11:32:00 Test Item Value Reference Range Interpretation Comments Hct (test code = Hct) 37.7 42.0-54.0 [facility] T[id number] 11:32:00 Test Item Value Reference Range Interpretation Comments MCV (test code = MCV) 91.2 80.0-94.0 [place] 496421-02-20 11:32:00 Test Item Value Reference Range Interpretation Comments MCH (test code = MCH) 29.8 pg 27.0-31.0 [facility] [id number] 11:32:00 Test Item Value Reference Range Interpretation Comments MCHC (test code = MCHC) 32.7 32.0-36.0 [facility] TempleLlfiwdmDNTSRLTCAO0105-93-00 11:32:00 Test Item Value Reference Range Interpretation Comments RDW (test code = RDW) 16.3 11.5-14.5 [facility] [id number] 11:32:00 Test Item Value Reference Range Interpretation Comments Platelet (test code = Platelet) 159 133-450 [facility] TempleGglxakfISAVIIPXGP9593-62-17 11:32:00 Test Item Value Reference Range Interpretation Comments MPV (test code = MPV) 9.3 7.4-10.4 [facility] T[id number] 11:32:00 Test Item Value Reference Range Interpretation Comments PT (test code = PT) 16.8 s 12.0-14.7 [facility] TempleJpjcrmgJSQIVKHCTM4796-14-33 11:32:00 Test Item Value Reference Range Interpretation Comments INR (test code = INR) 1.39 1 0.85-1.17 [place] 496421-02-20 11:32:00 Test Item Value Reference Range Interpretation Comments PTT (test code = PTT) 75.0 s 22.9-35.8 [facility]2021-02-20 11:32:00 Test Item Value Reference Range Interpretation Comments Glucose Lvl (test code = Glucose Lvl) 105 70-99 [facility]2021-02-20 11:32:00 Test Item Value Reference Range Interpretation Comments BUN (test code = BUN) 45 7-22 [facility]2021-02-20 11:32:00 Test Item Value Reference Range Interpretation Comments Creatinine Lvl (test code = Creatinine 1.99 0.50-1.40 Lvl) [place] 415641-02-20 11:32:00 Test Item Value Reference Range Interpretation Comments Sodium Lvl (test code = Sodium Lvl) 130 135-145 [place] 415641-02-20 11:32:00 Test Item Value Reference Range Interpretation Comments Potassium Lvl (test code = Potassium 3.7 3.5-5.1 Lvl) [place] 415641-02-20 11:32:00 Test Item Value Reference Range Interpretation Comments Chloride Lvl (test code = Chloride Lvl) 96 95-109 [place] 415641-02-20 11:32:00 Test Item Value Reference Range Interpretation Comments CO2 (test code = CO2) 25 24-32 [place] 415641-02-20 11:32:00 Test Item Value Reference Range Interpretation Comments Calcium Lvl (test code = Calcium Lvl) 8.5 8.5-10.5 [place] 415641-02-20 11:32:00 Test Item Value Reference Range Interpretation Comments Total Protein (test code = Total 5.9 6.4-8.4 Protein) [place] 415641-02-20 11:32:00 Test Item Value Reference Range Interpretation Comments Albumin Lvl (test code = Albumin Lvl) 2.8 3.5-5.0 [place] 415641-02-20 11:32:00 Test Item Value Reference Range Interpretation Comments ALT (test code = ALT) 326 See_Comment [Auto mated message] The system which ge nerated this result transmit tammi reference range : <=65. The reference range was not used to interpr et this result as josé miguel l/abnormal. [place] 415641-02-20 11:32:00 Test Item Value Reference Range Interpretation Comments AST (test code = AST) 164 See_Comment [Auto mated message] The system which ge nerated this result transmit tammi reference range : <=37. The reference range was not used to interpr et this result as josé miguel l/abnormal. [place] 415641-02-20 11:32:00 Test Item Value Reference Range Interpretation Comments Alk Phos (test code = Alk Phos) 97 39-136 [place] 415641-02-20 11:32:00 Test Item Value Reference Range Interpretation Comments Bili Total (test code = Bili Total) 1.6 0.2-1.3 [place] 415641-02-20 11:32:00 Test Item Value Reference Range Interpretation Comments AGAP (test code = AGAP) 12.7 10.0-20.0 [place] 415641-02-20 11:32:00 Test Item Value Reference Range Interpretation Comments B/C Ratio (test code = B/C Ratio) 23 1 6-25 [place] 415641-02-20 11:32:00 Test Item Value Reference Range Interpretation Comments Globulin (test code = Globulin) 3.1 2.7-4.2 [place] 415641-02-20 11:32:00 Test Item Value Reference Range Interpretation Comments A/G Ratio (test code = A/G Ratio) 0.9 1 0.7-1.6 [place] 415641-02-20 11:32:00 Test Item Value Reference Range Interpretation Comments eGFR (test code = eGFR) 32 [place] 415641-02-20 11:32:00 Test Item Value Reference Range Interpretation Comments Magnesium Lvl (test code = Magnesium 2.4 1.8-2.4 Lvl) [facility]2021-02-20 11:32:00 Test Item Value Reference Range Interpretation Comments Phosphorus (test code = Phosphorus) 3.6 2.5-4.5 [place] 496421-02-20 11:32:00 Test Item Value Reference Range Interpretation Comments Segs (test code = Segs) 67.5 45.0-75.0 [place] 496421-02-20 11:32:00 Test Item Value Reference Range Interpretation Comments Lymphocytes (test code = Lymphocytes) 21.0 20.0-40.0 [place] 496421-02-20 11:32:00 Test Item Value Reference Range Interpretation Comments Monocytes (test code = Monocytes) 7.2 2.0-12.0 [place] 496421-02-20 11:32:00 Test Item Value Reference Range Interpretation Comments Eosinophils (test code = 3.4 See_Comment [A utomated message] The Eosinophils) system which ge nerated this result tra nsmitted reference range : <=4.0. The reference r princess was not used to int erpret this result as normal/abnormal . [place] 496421-02-20 11:32:00 Test Item Value Reference Range Interpretation Comments Basophils (test code = 0.9 See_Comment [Aut omated message] The Basophils) system which ge nerated this result tra nsmitted reference range : <=1.0. The reference r princess was not used to int erpret this result as normal/abnormal . [facility] TempleWutamcrSETZAKVMHP6185-62-14 11:32:00 Test Item Value Reference Range Interpretation Comments Neutrophils # (test code = Neutrophils 5.5 1.5-8.1 #) [facility] TempleDlbfzdkWHUOZWHRMK5082-46-15 11:32:00 Test Item Value Reference Range Interpretation Comments Lymphocytes # (test code = Lymphocytes 1.7 1.0-5.5 #) [place] 496421-02-20 11:32:00 Test Item Value Reference Range Interpretation Comments Monocytes # (test code 0.6 See_Comment [Aut omated message] The = Monocytes #) system which generated this result tra nsmitted reference range : <=0.8. The reference r princess was not used to int erpret this result as normal/abnormal . [facility] TempleQwlnscdWVGCJNXMEI6432-82-24 11:32:00 Test Item Value Reference Range Interpretation Comments Eosinophils # (test code 0.3 See_Comment [A utomated message] The = Eosinophils #) system whic h generated this result tra nsmitted reference range : <=0.5. The reference r princess was not used to int erpret this result as normal/abnormal . [facility] TempleMenzvfhGJMZXLUNMU2470-79-65 11:32:00 Test Item Value Reference Range Interpretation Comments Basophils # (test code 0.1 See_Comment [Aut omated message] The = Basophils #) system which generated this result tra nsmitted reference range : <=0.2. The reference r princess was not used to int erpret this result as normal/abnormal . [facility] TempleCzlklssFFKLVQKZYO2840-76-93 11:32:00 Test Item Value Reference Range Interpretation Comments WBC (test code = WBC) 8.1 3.7-10.4 [facility] TempleLaxflxyNQVYCABDQD4524-93-15 11:32:00 Test Item Value Reference Range Interpretation Comments RBC (test code = RBC) 4.13 4.70-6.10 [place] 496421-02-20 11:32:00 Test Item Value Reference Range Interpretation Comments Hgb (test code = Hgb) 12.3 14.0-18.0 [facility] TempleQjgspdfMTUZRUBJSW4953-50-65 11:32:00 Test Item Value Reference Range Interpretation Comments Hct (test code = Hct) 37.7 42.0-54.0 [facility] TempleJwebbdmVXCHWBJSSX0895-04-73 11:32:00 Test Item Value Reference Range Interpretation Comments MCV (test code = MCV) 91.2 80.0-94.0 [facility] TempleMuxcpbqDLZBUXMFBN7073-74-00 11:32:00 Test Item Value Reference Range Interpretation Comments MCH (test code = MCH) 29.8 pg 27.0-31.0 [facility] TempleWlcsmxrMLAZGZWLFC4290-09-35 11:32:00 Test Item Value Reference Range Interpretation Comments MCHC (test code = MCHC) 32.7 32.0-36.0 [facility] TempleRbuhukuIVSALYASKW2910-25-08 11:32:00 Test Item Value Reference Range Interpretation Comments RDW (test code = RDW) 16.3 11.5-14.5 [facility] TempleBvhnimuUSNCCRTJMZ8130-42-85 11:32:00 Test Item Value Reference Range Interpretation Comments Platelet (test code = Platelet) 159 133-450 [facility] TempleBmfiyagCDIDMZFWSB1836-08-55 11:32:00 Test Item Value Reference Range Interpretation Comments MPV (test code = MPV) 9.3 7.4-10.4 [facility] TempleNvdbechWTATZOMTUG3492-47-93 11:32:00 Test Item Value Reference Range Interpretation Comments PT (test code = PT) 16.8 s 12.0-14.7 [facility] TempleRbdbiwyGTEWUSNFTE6780-08-59 11:32:00 Test Item Value Reference Range Interpretation Comments INR (test code = INR) 1.39 1 0.85-1.17 [place] 496421-02-20 11:32:00 Test Item Value Reference Range Interpretation Comments PTT (test code = PTT) 75.0 s 22.9-35.8 [place] 496421-02-20 00:10:00 Test Item Value Reference Range Interpretation Comments PT (test code = PT) 16.8 s 12.0-14.7 [facility] TempleOssaacaSAZOXDBDNB2543-77-03 00:10:00 Test Item Value Reference Range Interpretation Comments INR (test code = INR) 1.39 1 0.85-1.17 [place] 496421-02-20 00:10:00 Test Item Value Reference Range Interpretation Comments PTT (test code = PTT) 72.6 s 22.9-35.8 [place] 496421-02-20 00:10:00 Test Item Value Reference Range Interpretation Comments PT (test code = PT) 16.8 s 12.0-14.7 [place] [address]-02-20 00:10:00 Test Item Value Reference Range Interpretation Comments INR (test code = INR) 1.39 1 0.85-1.17 [place] 496421-02-20 00:10:00 Test Item Value Reference Range Interpretation Comments PTT (test code = PTT) 72.6 s 22.9-35.8 [place] 415641-02-19 17:53:00 Test Item Value Reference Range Interpretation Comments Magnesium Lvl (test code = Magnesium 2.5 1.8-2.4 Lvl) [place] 415641-02-19 17:53:00 Test Item Value Reference Range Interpretation Comments Phosphorus (test code = Phosphorus) 4.3 2.5-4.5 [place] 415641-02-19 17:53:00 Test Item Value Reference Range Interpretation Comments Glucose Lvl (test code = Glucose Lvl) 120 70-99 [place] 415641-02-19 17:53:00 Test Item Value Reference Range Interpretation Comments BUN (test code = BUN) 47 7-22 [place] 415641-02-19 17:53:00 Test Item Value Reference Range Interpretation Comments Creatinine Lvl (test code = Creatinine 2.28 0.50-1.40 Lvl) [place] 415641-02-19 17:53:00 Test Item Value Reference Range Interpretation Comments Sodium Lvl (test code = Sodium Lvl) 127 135-145 [place] 415641-02-19 17:53:00 Test Item Value Reference Range Interpretation Comments Potassium Lvl (test code = Potassium 3.9 3.5-5.1 Lvl) [place] 415641-02-19 17:53:00 Test Item Value Reference Range Interpretation Comments Chloride Lvl (test code = Chloride Lvl) 93 95-109 [facility] [address]BAXDH7897-70-07 17:53:00 Test Item Value Reference Range Interpretation Comments CO2 (test code = CO2) 24 24-32 [place] 415641-02-19 17:53:00 Test Item Value Reference Range Interpretation Comments Calcium Lvl (test code = Calcium Lvl) 8.8 8.5-10.5 [facility]DiglyK[facility] [address]FUNPG9467-09-29 17:53:00 Test Item Value Reference Range Interpretation Comments Total Protein (test code = Total 6.5 6.4-8.4 Protein) [place] 415641-02-19 17:53:00 Test Item Value Reference Range Interpretation Comments Albumin Lvl (test code = Albumin Lvl) 3.0 3.5-5.0 [facility] [id number] 17:53:00 Test Item Value Reference Range Interpretation Comments ALT (test code = ALT) 377 See_Comment [Auto mated message] The system which ge nerated this result transmit tammi reference range : <=65. The reference range was not used to interpr et this result as josé miguel l/abnormal. [facility] [id number] 17:53:00 Test Item Value Reference Range Interpretation Comments AST (test code = AST) 234 See_Comment [Auto mated message] The system which ge nerated this result transmit tammi reference range : <=37. The reference range was not used to interpr et this result as josé miguel l/abnormal. [facility] [id number] 17:53:00 Test Item Value Reference Range Interpretation Comments Alk Phos (test code = Alk Phos) 110 39-136 [facility] [id number] 17:53:00 Test Item Value Reference Range Interpretation Comments Bili Total (test code = Bili Total) 2.0 0.2-1.3 [facility] [id number] 17:53:00 Test Item Value Reference Range Interpretation Comments AGAP (test code = AGAP) 13.9 10.0-20.0 [facility] [id number] 17:53:00 Test Item Value Reference Range Interpretation Comments B/C Ratio (test code = B/C Ratio) 21 1 6-25 [facility] [id number] 17:53:00 Test Item Value Reference Range Interpretation Comments Globulin (test code = Globulin) 3.5 2.7-4.2 [facility] [id number] 17:53:00 Test Item Value Reference Range Interpretation Comments A/G Ratio (test code = A/G Ratio) 0.9 1 0.7-1.6 [facility] [id number] 17:53:00 Test Item Value Reference Range Interpretation Comments eGFR (test code = eGFR) 27 [facility] TempleQqrqtobZLTLBTUHLT8963-89-34 17:53:00 Test Item Value Reference Range Interpretation Comments WBC (test code = WBC) 8.6 3.7-10.4 [facility] TempleGsubbpjKTUKIBQZTU1888-42-89 17:53:00 Test Item Value Reference Range Interpretation Comments RBC (test code = RBC) 4.22 4.70-6.10 [facility] TempleLwgcyuiYRVIQDRJEU8001-16-45 17:53:00 Test Item Value Reference Range Interpretation Comments Hgb (test code = Hgb) 12.4 14.0-18.0 [facility] TempleOqtgywlWHTGHPLBZL3987-49-09 17:53:00 Test Item Value Reference Range Interpretation Comments Hct (test code = Hct) 38.8 42.0-54.0 [facility] TempleJzphmpiCPSCTDTLSX0013-22-97 17:53:00 Test Item Value Reference Range Interpretation Comments MCV (test code = MCV) 91.9 80.0-94.0 [facility] TempleBtckaqxICNESDZXWF2177-64-10 17:53:00 Test Item Value Reference Range Interpretation Comments MCH (test code = MCH) 29.5 pg 27.0-31.0 [facility] TempleMxbfnvkXVBRGPMIVT3324-10-15 17:53:00 Test Item Value Reference Range Interpretation Comments MCHC (test code = MCHC) 32.1 32.0-36.0 [facility] TempleXhjffayRHMHLULDUY9187-21-19 17:53:00 Test Item Value Reference Range Interpretation Comments RDW (test code = RDW) 16.4 11.5-14.5 [facility] TempleXtsprpwCCXMLIDRMC9898-79-40 17:53:00 Test Item Value Reference Range Interpretation Comments Platelet (test code = Platelet) 168 133-450 [facility] TempleYffvqsjGVINQNXHRS1312-65-81 17:53:00 Test Item Value Reference Range Interpretation Comments MPV (test code = MPV) 9.5 7.4-10.4 [facility] TempleFkxusroHDWASZYWPV9277-96-73 17:53:00 Test Item Value Reference Range Interpretation Comments PTT (test code = PTT) 82.6 s 22.9-35.8 [facility] TempleEhsneilRSDSQGUDYJ4719-76-94 17:53:00 Test Item Value Reference Range Interpretation Comments Segs (test code = Segs) 68.7 45.0-75.0 [facility] TempleGemlzbtJVNWJUAOMX5522-31-11 17:53:00 Test Item Value Reference Range Interpretation Comments Lymphocytes (test code = Lymphocytes) 21.3 20.0-40.0 [facility] TempleTbdzvnqICPIPWEXZT7826-62-88 17:53:00 Test Item Value Reference Range Interpretation Comments Monocytes (test code = Monocytes) 7.5 2.0-12.0 [facility] TempleBosdfjiKOJIAUDSQW6490-35-72 17:53:00 Test Item Value Reference Range Interpretation Comments Eosinophils (test code = 1.7 See_Comment [A utomated message] The Eosinophils) system which ge nerated this result tra nsmitted reference range : <=4.0. The reference r princess was not used to int erpret this result as normal/abnormal . [facility] TempleJaowzjsPUJTPXIWVZ8069-30-17 17:53:00 Test Item Value Reference Range Interpretation Comments Basophils (test code = 0.8 See_Comment [Aut omated message] The Basophils) system which ge nerated this result tra nsmitted reference range : <=1.0. The reference r princess was not used to int erpret this result as normal/abnormal . [facility] TempleVfveltnGNYZTVPQMM4994-99-62 17:53:00 Test Item Value Reference Range Interpretation Comments Neutrophils # (test code = Neutrophils 5.9 1.5-8.1 #) [facility] TempleHpgqyobUUAEXDVFYG4917-21-26 17:53:00 Test Item Value Reference Range Interpretation Comments Lymphocytes # (test code = Lymphocytes 1.8 1.0-5.5 #) [facility] TempleNzfbykqWWOZWFPQGA1155-35-91 17:53:00 Test Item Value Reference Range Interpretation Comments Monocytes # (test code 0.7 See_Comment [Aut omated message] The = Monocytes #) system which generated this result tra nsmitted reference range : <=0.8. The reference r princess was not used to int erpret this result as normal/abnormal . [place] 496421-02-19 17:53:00 Test Item Value Reference Range Interpretation Comments Eosinophils # (test code 0.2 See_Comment [A utomated message] The = Eosinophils #) system whic h generated this result tra nsmitted reference range : <=0.5. The reference r princess was not used to int erpret this result as normal/abnormal . [place] 496421-02-19 17:53:00 Test Item Value Reference Range Interpretation Comments Basophils # (test code 0.1 See_Comment [Aut omated message] The = Basophils #) system which generated this result tra nsmitted reference range : <=0.2. The reference r princess was not used to int erpret this result as normal/abnormal . [place] 415641-02-19 17:53:00 Test Item Value Reference Range Interpretation Comments Magnesium Lvl (test code = Magnesium 2.5 1.8-2.4 Lvl) [place] 415641-02-19 17:53:00 Test Item Value Reference Range Interpretation Comments Phosphorus (test code = Phosphorus) 4.3 2.5-4.5 [place] 415641-02-19 17:53:00 Test Item Value Reference Range Interpretation Comments Glucose Lvl (test code = Glucose Lvl) 120 70-99 [place] 415641-02-19 17:53:00 Test Item Value Reference Range Interpretation Comments BUN (test code = BUN) 47 7-22 [place] 415641-02-19 17:53:00 Test Item Value Reference Range Interpretation Comments Creatinine Lvl (test code = Creatinine 2.28 0.50-1.40 Lvl) [place] 415641-02-19 17:53:00 Test Item Value Reference Range Interpretation Comments Sodium Lvl (test code = Sodium Lvl) 127 135-145 [facility] [id number] 17:53:00 Test Item Value Reference Range Interpretation Comments Potassium Lvl (test code = Potassium 3.9 3.5-5.1 Lvl) [place] 415641-02-19 17:53:00 Test Item Value Reference Range Interpretation Comments Chloride Lvl (test code = Chloride Lvl) 93 95-109 [facility] [id number] 17:53:00 Test Item Value Reference Range Interpretation Comments CO2 (test code = CO2) 24 24-32 [facility] [id number] 17:53:00 Test Item Value Reference Range Interpretation Comments Calcium Lvl (test code = Calcium Lvl) 8.8 8.5-10.5 [facility] [id number] 17:53:00 Test Item Value Reference Range Interpretation Comments Total Protein (test code = Total 6.5 6.4-8.4 Protein) [facility] [id number] 17:53:00 Test Item Value Reference Range Interpretation Comments Albumin Lvl (test code = Albumin Lvl) 3.0 3.5-5.0 [facility] [id number] 17:53:00 Test Item Value Reference Range Interpretation Comments ALT (test code = ALT) 377 See_Comment [Auto mated message] The system which ge nerated this result transmit tammi reference range : <=65. The reference range was not used to interpr et this result as josé miguel l/abnormal. [facility] [id number] 17:53:00 Test Item Value Reference Range Interpretation Comments AST (test code = AST) 234 See_Comment [Auto mated message] The system which ge nerated this result transmit tammi reference range : <=37. The reference range was not used to interpr et this result as josé miguel l/abnormal. [facility] [id number] 17:53:00 Test Item Value Reference Range Interpretation Comments Alk Phos (test code = Alk Phos) 110 39-136 [facility] [id number] 17:53:00 Test Item Value Reference Range Interpretation Comments Bili Total (test code = Bili Total) 2.0 0.2-1.3 [facility] [id number] 17:53:00 Test Item Value Reference Range Interpretation Comments AGAP (test code = AGAP) 13.9 10.0-20.0 [facility] [id number] 17:53:00 Test Item Value Reference Range Interpretation Comments B/C Ratio (test code = B/C Ratio) 21 1 6-25 [facility] [id number] 17:53:00 Test Item Value Reference Range Interpretation Comments Globulin (test code = Globulin) 3.5 2.7-4.2 [facility]2021-02-19 17:53:00 Test Item Value Reference Range Interpretation Comments A/G Ratio (test code = A/G Ratio) 0.9 1 0.7-1.6 [facility]2021-02-19 17:53:00 Test Item Value Reference Range Interpretation Comments eGFR (test code = eGFR) 27 [facility] TempleEwljdfoLWDTBUSFRV3754-03-16 17:53:00 Test Item Value Reference Range Interpretation Comments WBC (test code = WBC) 8.6 3.7-10.4 [facility] TempleStgtvciNXHYFQHTDE5807-76-67 17:53:00 Test Item Value Reference Range Interpretation Comments RBC (test code = RBC) 4.22 4.70-6.10 [facility] TempleKidhqohHFYSIXLWJM6307-50-72 17:53:00 Test Item Value Reference Range Interpretation Comments Hgb (test code = Hgb) 12.4 14.0-18.0 [facility] TempleIkkwhctZNEWIKJFBY0311-84-51 17:53:00 Test Item Value Reference Range Interpretation Comments Hct (test code = Hct) 38.8 42.0-54.0 [facility] TempleTuemyfzQACNLPYAXY2780-35-45 17:53:00 Test Item Value Reference Range Interpretation Comments MCV (test code = MCV) 91.9 80.0-94.0 [facility] TempleEwzntewKSQIZVXLZB1187-03-16 17:53:00 Test Item Value Reference Range Interpretation Comments MCH (test code = MCH) 29.5 pg 27.0-31.0 [facility] TempleLxbgouiXXYPDSDMBF2023-38-75 17:53:00 Test Item Value Reference Range Interpretation Comments MCHC (test code = MCHC) 32.1 32.0-36.0 [facility] TempleUvuivdjGEQBPZPKXN3290-54-68 17:53:00 Test Item Value Reference Range Interpretation Comments RDW (test code = RDW) 16.4 11.5-14.5 [place] 496421-02-19 17:53:00 Test Item Value Reference Range Interpretation Comments Platelet (test code = Platelet) 168 133-450 [facility] TempleNxixcirPFEWIFJZYA7122-65-80 17:53:00 Test Item Value Reference Range Interpretation Comments MPV (test code = MPV) 9.5 7.4-10.4 [facility] TempleXykxouqTNDZLAFNKP9606-11-63 17:53:00 Test Item Value Reference Range Interpretation Comments PTT (test code = PTT) 82.6 s 22.9-35.8 [place] 496421-02-19 17:53:00 Test Item Value Reference Range Interpretation Comments Segs (test code = Segs) 68.7 45.0-75.0 [place] 496421-02-19 17:53:00 Test Item Value Reference Range Interpretation Comments Lymphocytes (test code = Lymphocytes) 21.3 20.0-40.0 [facility] TempleSdqpexhCZDHIMRKSG5776-88-99 17:53:00 Test Item Value Reference Range Interpretation Comments Monocytes (test code = Monocytes) 7.5 2.0-12.0 [place] 496421-02-19 17:53:00 Test Item Value Reference Range Interpretation Comments Eosinophils (test code = 1.7 See_Comment [A utomated message] The Eosinophils) system which ge nerated this result tra nsmitted reference range : <=4.0. The reference r princess was not used to int erpret this result as normal/abnormal . [facility] TempleDlkfbcfRBZTCCAICA4233-43-57 17:53:00 Test Item Value Reference Range Interpretation Comments Basophils (test code = 0.8 See_Comment [Aut omated message] The Basophils) system which ge nerated this result tra nsmitted reference range : <=1.0. The reference r princess was not used to int erpret this result as normal/abnormal . [facility] TempleDvvidfeNZCAKIWDFW0590-25-37 17:53:00 Test Item Value Reference Range Interpretation Comments Neutrophils # (test code = Neutrophils 5.9 1.5-8.1 #) [facility] TempleXtykpxvSIPYYRYAJG1480-31-98 17:53:00 Test Item Value Reference Range Interpretation Comments Lymphocytes # (test code = Lymphocytes 1.8 1.0-5.5 #) [facility] TempleGtwbsunOPCTGVXQMI3755-84-73 17:53:00 Test Item Value Reference Range Interpretation Comments Monocytes # (test code 0.7 See_Comment [Aut omated message] The = Monocytes #) system which generated this result tra nsmitted reference range : <=0.8. The reference r princess was not used to int erpret this result as normal/abnormal . [place] 496421-02-19 17:53:00 Test Item Value Reference Range Interpretation Comments Eosinophils # (test code 0.2 See_Comment [A utomated message] The = Eosinophils #) system whic h generated this result tra nsmitted reference range : <=0.5. The reference r princess was not used to int erpret this result as normal/abnormal . [facility] TempleTgmdgkwAMFERJDNBL2864-06-[facility] 17:53:00 Test Item Value Reference Range Interpretation Comments Basophils # (test code 0.1 See_Comment [Aut omated message] The = Basophils #) system which generated this result tra nsmitted reference range : <=0.2. The reference r princess was not used to int erpret this result as normal/abnormal . [facility] TempleApwkhomYCQWJSZVFO4731-92-51 21:49:00 Test Item Value Reference Range Interpretation Comments PT (test code = PT) 16.8 s 12.0-14.7 [facility] TempleYbuhwafUWSKCJSMNM4712-19-30 21:49:00 Test Item Value Reference Range Interpretation Comments INR (test code = INR) 1.39 1 0.85-1.17 [place] 496421-02-18 21:49:00 Test Item Value Reference Range Interpretation Comments WBC (test code = WBC) 9.0 3.7-10.4 [facility] TempleSqepkyuNCGLRKZVEL6945-98-73 21:49:00 Test Item Value Reference Range Interpretation Comments RBC (test code = RBC) 4.16 4.70-6.10 [facility] TempleWoonluzGOEBQGSIKA9437-78-24 21:49:00 Test Item Value Reference Range Interpretation Comments Hgb (test code = Hgb) 12.8 14.0-18.0 [place] 496421-02-18 21:49:00 Test Item Value Reference Range Interpretation Comments Hct (test code = Hct) 38.2 42.0-54.0 [place] 496421-02-18 21:49:00 Test Item Value Reference Range Interpretation Comments MCV (test code = MCV) 91.8 80.0-94.0 [place] 496421-02-18 21:49:00 Test Item Value Reference Range Interpretation Comments MCH (test code = MCH) 30.8 pg 27.0-31.0 [place] 496421-02-18 21:49:00 Test Item Value Reference Range Interpretation Comments MCHC (test code = MCHC) 33.6 32.0-36.0 [place] 496421-02-18 21:49:00 Test Item Value Reference Range Interpretation Comments RDW (test code = RDW) 16.2 11.5-14.5 [place] 496421-02-18 21:49:00 Test Item Value Reference Range Interpretation Comments Platelet (test code = Platelet) 173 133-450 [place] 496421-02-18 21:49:00 Test Item Value Reference Range Interpretation Comments MPV (test code = MPV) 8.5 7.4-10.4 [place] 496421-02-18 21:49:00 Test Item Value Reference Range Interpretation Comments Segs (test code = Segs) 73.1 45.0-75.0 [place] [address]-02-18 21:49:00 Test Item Value Reference Range Interpretation Comments Lymphocytes (test code = Lymphocytes) 17.4 20.0-40.0 [place] 496421-02-18 21:49:00 Test Item Value Reference Range Interpretation Comments Monocytes (test code = Monocytes) 7.3 2.0-12.0 [place] 496421-02-18 21:49:00 Test Item Value Reference Range Interpretation Comments Eosinophils (test code = 1.6 See_Comment [A utomated message] The Eosinophils) system which ge nerated this result tra nsmitted reference range : <=4.0. The reference r princess was not used to int erpret this result as normal/abnormal . [place] 496421-02-18 21:49:00 Test Item Value Reference Range Interpretation Comments Basophils (test code = 0.6 See_Comment [Aut omated message] The Basophils) system which ge nerated this result tra nsmitted reference range : <=1.0. The reference r princess was not used to int erpret this result as normal/abnormal . [place] 496421-02-18 21:49:00 Test Item Value Reference Range Interpretation Comments Neutrophils # (test code = Neutrophils 6.6 1.5-8.1 #) [place] 496421-02-18 21:49:00 Test Item Value Reference Range Interpretation Comments Lymphocytes # (test code = Lymphocytes 1.6 1.0-5.5 #) [place] 496421-02-18 21:49:00 Test Item Value Reference Range Interpretation Comments Monocytes # (test code 0.7 See_Comment [Aut omated message] The = Monocytes #) system which generated this result tra nsmitted reference range : <=0.8. The reference r princess was not used to int erpret this result as normal/abnormal . [facility] TempleXqezfyuNTPKDPWNEC7838-91-52 21:49:00 Test Item Value Reference Range Interpretation Comments Eosinophils # (test code 0.1 See_Comment [A utomated message] The = Eosinophils #) system whic h generated this result tra nsmitted reference range : <=0.5. The reference r princess was not used to int erpret this result as normal/abnormal . [facility] TempleBcrimuyINTRYHKSEB9521-31-14 21:49:00 Test Item Value Reference Range Interpretation Comments Basophils # (test code 0.1 See_Comment [Aut omated message] The = Basophils #) system which generated this result tra nsmitted reference range : <=0.2. The reference r princess was not used to int erpret this result as normal/abnormal . [facility] TempleAbxyrbiULCLVMZFHN4712-54-96 21:49:00 Test Item Value Reference Range Interpretation Comments PT (test code = PT) 16.8 s 12.0-14.7 [place] 496421-02-18 21:49:00 Test Item Value Reference Range Interpretation Comments INR (test code = INR) 1.39 1 0.85-1.17 [place] 496421-02-18 21:49:00 Test Item Value Reference Range Interpretation Comments WBC (test code = WBC) 9.0 3.7-10.4 [place] 496421-02-18 21:49:00 Test Item Value Reference Range Interpretation Comments RBC (test code = RBC) 4.16 4.70-6.10 [place] 496421-02-18 21:49:00 Test Item Value Reference Range Interpretation Comments Hgb (test code = Hgb) 12.8 14.0-18.0 [place] 496421-02-18 21:49:00 Test Item Value Reference Range Interpretation Comments Hct (test code = Hct) 38.2 42.0-54.0 [place] 496421-02-18 21:49:00 Test Item Value Reference Range Interpretation Comments MCV (test code = MCV) 91.8 80.0-94.0 [place] 496421-02-18 21:49:00 Test Item Value Reference Range Interpretation Comments MCH (test code = MCH) 30.8 pg 27.0-31.0 [place] 496421-02-18 21:49:00 Test Item Value Reference Range Interpretation Comments MCHC (test code = MCHC) 33.6 32.0-36.0 [place] 496421-02-18 21:49:00 Test Item Value Reference Range Interpretation Comments RDW (test code = RDW) 16.2 11.5-14.5 [place] 496421-02-18 21:49:00 Test Item Value Reference Range Interpretation Comments Platelet (test code = Platelet) 173 133-450 [place] 496421-02-18 21:49:00 Test Item Value Reference Range Interpretation Comments MPV (test code = MPV) 8.5 7.4-10.4 [place] 496421-02-18 21:49:00 Test Item Value Reference Range Interpretation Comments Segs (test code = Segs) 73.1 45.0-75.0 [place] 496421-02-18 21:49:00 Test Item Value Reference Range Interpretation Comments Lymphocytes (test code = Lymphocytes) 17.4 20.0-40.0 [place] 496421-02-18 21:49:00 Test Item Value Reference Range Interpretation Comments Monocytes (test code = Monocytes) 7.3 2.0-12.0 [place] 496421-02-18 21:49:00 Test Item Value Reference Range Interpretation Comments Eosinophils (test code = 1.6 See_Comment [A utomated message] The Eosinophils) system which ge nerated this result tra nsmitted reference range : <=4.0. The reference r princess was not used to int erpret this result as normal/abnormal . [place] 496421-02-18 21:49:00 Test Item Value Reference Range Interpretation Comments Basophils (test code = 0.6 See_Comment [Aut omated message] The Basophils) system which ge nerated this result tra nsmitted reference range : <=1.0. The reference r princess was not used to int erpret this result as normal/abnormal . [place] 496421-02-18 21:49:00 Test Item Value Reference Range Interpretation Comments Neutrophils # (test code = Neutrophils 6.6 1.5-8.1 #) [place] 496421-02-18 21:49:00 Test Item Value Reference Range Interpretation Comments Lymphocytes # (test code = Lymphocytes 1.6 1.0-5.5 #) [place] 496421-02-18 21:49:00 Test Item Value Reference Range Interpretation Comments Monocytes # (test code 0.7 See_Comment [Aut omated message] The = Monocytes #) system which generated this result tra nsmitted reference range : <=0.8. The reference r princess was not used to int erpret this result as normal/abnormal . [address]02-18 21:49:00 Test Item Value Reference Range Interpretation Comments Eosinophils # (test code 0.1 See_Comment [A utomated message] The = Eosinophils #) system [facility] h generated this result tra nsmitted reference range : <=0.5. The reference r princess was not used to int erpret this result as normal/abnormal . [place] 496421-02-18 21:49:00 Test Item Value Reference Range Interpretation Comments Basophils # (test code 0.1 See_Comment [Aut omated message] The = Basophils #) system which generated this result tra nsmitted reference range : <=0.2. The reference r princess was not used to int erpret this result as normal/abnormal . [facility] CenterT[facility] Games [id number] 16:41:00 Test Item Value Reference Range Interpretation Comments Procalcitonin Lvl (test 0.14 See_Comment [Au tomated message] code = Procalcitonin Lvl) Th e system which generated this result transmitted ref erence range: <=0.10. The reference range was not used to interpr et this result as normal/abnormal . [place] 415641-02-18 16:41:00 Test Item Value Reference Range Interpretation Comments Procalcitonin Lvl (test 0.14 See_Comment [Au tomated message] code = Procalcitonin Lvl) Th e system which generated this result transmitted ref erence range: <=0.10. The reference range was not used to interpr et this result as normal/abnormal . [facility] [id number] 10:26:00 Test Item Value Reference Range Interpretation Comments Magnesium Lvl (test code = Magnesium 2.3 1.8-2.4 Lvl) [facility] CenterT[facility] Games [id number] 10:26:00 Test Item Value Reference Range Interpretation Comments Phosphorus (test code = Phosphorus) 5.0 2.5-4.5 [facility]Hold[facility] [id number] 10:26:00 Test Item Value Reference Range Interpretation Comments Magnesium Lvl (test code = Magnesium 2.3 1.8-2.4 Lvl) [facility] [id number] 10:26:00 Test Item Value Reference Range Interpretation Comments Phosphorus (test code = Phosphorus) 5.0 2.5-4.5 [facility] CenteriDreamsky Technology [id number] 20:40:00 Test Item Value Reference Range Interpretation Comments Alb BF Type (test Pleural (12/16/20 2:40 code = Alb BF Type) PM) [facility] CenterHickiesCNNRKL6437-58-26 20:40:00 Test Item Value Reference Range Interpretation Comments Albumin BF (test code = Albumin BF) 1.1 [facility] CenterHickiesUCDCBQ4797-07-99 20:40:00 Test Item Value Reference Range Interpretation Comments Color BF (test code = Yellow (12/16/20 2:40 Color BF) PM) [facility] CenteriDreams[facility] Technology [id number] 20:40:00 Test Item Value Reference Range Interpretation Comments Clarity BF (test code = Slight Cloudy (12/16/20 Clarity BF) 2:40 PM) [facility] CenterHickiesJLTQMB0059-97-18 20:40:00 Test Item Value Reference Range Interpretation Comments Nucleated Cells BF (test code = 784 Nucleated Cells BF) [facility] CenterHickiesYCTTRI9529-57-97 20:40:00 Test Item Value Reference Range Interpretation Comments RBC BF (test code = RBC BF) 480 [facility] CenterHickiesRKNGXR3702-06-24 20:40:00 Test Item Value Reference Range Interpretation Comments CellCnt BF Type (test Pleural (12/16/20 2:40 code = CellCnt BF Type) PM) [facility] CenterHickiesZJRUQD1680-16-80 20:40:00 Test Item Value Reference Range Interpretation Comments Neutrophils BF (test code = Neutrophils 39 BF) [facility]2021-02-16 20:40:00 Test Item Value Reference Range Interpretation Comments Lymph BF (test code = Lymph BF) 50 [facility]2021-02-16 20:40:00 Test Item Value Reference Range Interpretation Comments Macrophage BF (test code = Macrophage 11 BF) [facility]2021-02-16 20:40:00 Test Item Value Reference Range Interpretation Comments Gluc BF Type (test Pleural (12/16/20 2:40 code = Gluc BF Type) PM) [facility]2021-02-16 20:40:00 Test Item Value Reference Range Interpretation Comments Glucose BF (test code = Glucose BF) 110 [facility]2021-02-16 20:40:00 Test Item Value Reference Range Interpretation Comments LDH BF Type (test Pleural (12/16/20 2:40 code = LDH BF Type) PM) [facility]2021-02-16 20:40:00 Test Item Value Reference Range Interpretation Comments LDH BF (test code = LDH BF) 109 [facility] [id number] 20:40:00 Test Item Value Reference Range Interpretation Comments Lipase BF Type (test Pleural (12/16/20 2:40 code = Lipase BF Type) PM) [facility]2021-02-16 20:40:00 Test Item Value Reference Range Interpretation Comments Lipase BF (test code = Lipase BF) no gt [facility]2021-02-16 20:40:00 Test Item Value Reference Range Interpretation Comments pH BF Type (test code Pleural (12/16/20 2:40 = pH BF Type) PM) [facility] [id number] 20:40:00 Test Item Value Reference Range Interpretation Comments BODY FLUID, PH (test code = BODY 8.00 1 FLUID, PH) [facility] [id number] 20:40:00 Test Item Value Reference Range Interpretation Comments Prot BF Type (test Pleural (12/16/20 2:40 code = Prot BF Type) PM) [facility] [id number] 20:40:00 Test Item Value Reference Range Interpretation Comments Protein BF (test code = Protein BF) 2.2 [facility] [id number] 20:40:00 Test Item Value Reference Range Interpretation Comments Trig BF Type (test Pleural (12/16/20 2:40 code = Trig BF Type) PM) [facility] [id number] 20:40:00 Test Item Value Reference Range Interpretation Comments Trig BF (test code = Trig BF) 15 [facility] CenterGram Stain [id number] 20:40:00 Test Item Value Reference Range Interpretation Comments Gram Stain Report Many WBC's Seen No (test code = Gram Organisms Seen Stain Report) [facility] CenterCulture: Aspirate/Body Fluid/Rmnqbg6314-32-75 20:40:00 Test Item Value Reference Range Interpretation Comments Culture: Aspirate/Body Fluid/Tissue No Growth (test code = Culture: Aspirate/Body Fluid/Tissue) [facility]2021-02-16 20:40:00 Test Item Value Reference Range Interpretation Comments Alb BF Type (test Pleural (12/16/20 2:40 code = Alb BF Type) PM) [facility]2021-02-16 20:40:00 Test Item Value Reference Range Interpretation Comments Albumin BF (test code = Albumin BF) 1.1 [facility]2021-02-16 20:40:00 Test Item Value Reference Range Interpretation Comments Color BF (test code = Yellow (12/16/20 2:40 Color BF) PM) [facility]2021-02-16 20:40:00 Test Item Value Reference Range Interpretation Comments Clarity BF (test code = Slight Cloudy (12/16/20 Clarity BF) 2:40 PM) [facility]2021-02-16 20:40:00 Test Item Value Reference Range Interpretation Comments Nucleated Cells BF (test code = 784 Nucleated Cells BF) [facility]2021-02-16 20:40:00 Test Item Value Reference Range Interpretation Comments RBC BF (test code = RBC BF) 480 [facility]2021-02-16 20:40:00 Test Item Value Reference Range Interpretation Comments CellCnt BF Type (test Pleural (12/16/20 2:40 code = CellCnt BF Type) PM) [facility]2021-02-16 20:40:00 Test Item Value Reference Range Interpretation Comments Neutrophils BF (test code = Neutrophils 39 BF) [facility]2021-02-16 20:40:00 Test Item Value Reference Range Interpretation Comments Lymph BF (test code = Lymph BF) 50 [facility] [id number] 20:40:00 Test Item Value Reference Range Interpretation Comments Macrophage BF (test code = Macrophage 11 BF) [facility]2021-02-16 20:40:00 Test Item Value Reference Range Interpretation Comments Gluc BF Type (test Pleural (12/16/20 2:40 code = Gluc BF Type) PM) [facility] [id number] 20:40:00 Test Item Value Reference Range Interpretation Comments Glucose BF (test code = Glucose BF) 110 [facility] [id number] 20:40:00 Test Item Value Reference Range Interpretation Comments LDH BF Type (test Pleural (12/16/20 2:40 code = LDH BF Type) PM) [facility] [id number] 20:40:00 Test Item Value Reference Range Interpretation Comments LDH BF (test code = LDH BF) 109 [facility] [id number] 20:40:00 Test Item Value Reference Range Interpretation Comments Lipase BF Type (test Pleural (12/16/20 2:40 code = Lipase BF Type) PM) [facility] [id number] 20:40:00 Test Item Value Reference Range Interpretation Comments Lipase BF (test code = Lipase BF) no gt [facility] [id number] 20:40:00 Test Item Value Reference Range Interpretation Comments pH BF Type (test code Pleural (12/16/20 2:40 = pH BF Type) PM) [facility] [id number] 20:40:00 Test Item Value Reference Range Interpretation Comments BODY FLUID, PH (test code = BODY 8.00 1 FLUID, PH) [facility] [id number] 20:40:00 Test Item Value Reference Range Interpretation Comments Prot BF Type (test Pleural (12/16/20 2:40 code = Prot BF Type) PM) [facility] [id number] 20:40:00 Test Item Value Reference Range Interpretation Comments Protein BF (test code = Protein BF) 2.2 [facility] [id number] 20:40:00 Test Item Value Reference Range Interpretation Comments Trig BF Type (test Pleural (12/16/20 2:40 code = Trig BF Type) PM) [facility] [id number] 20:40:00 Test Item Value Reference Range Interpretation Comments Trig BF (test code = Trig BF) 15 [facility] HospitalannGram Stain [id number] 20:40:00 Test Item Value Reference Range Interpretation Comments Gram Stain Report Many WBC's Seen No (test code = Gram Organisms Seen Stain Report) [facility] HospitalannCulture: Aspirate/Body Fluid/Dovryp2946-04-13 20:40:00 Test Item Value Reference Range Interpretation Comments Culture: Aspirate/Body Fluid/Tissue No Growth (test code = Culture: Aspirate/Body Fluid/Tissue) [facility] HospitalCuashsfBQQBLIXFQB6467-89-28 17:23:00 Test Item Value Reference Range Interpretation Comments Coronavirus (COVID-19) Not Detected (12/16/20 NATHALY (test code = 11:23 AM) Coronavirus (COVID-19) NATHALY) [facility] HospitalAmhprycIARIGIKYGO2262-67-41 17:23:00 Test Item Value Reference Range Interpretation Comments Coronavirus (COVID-19) Not Detected (12/16/20 NATHALY (test code = 11:23 AM) Coronavirus (COVID-19) NATHALY) [facility] HospitalHoldaway Medical Holdings [id number] 00:34:00 Test Item Value Reference Range Interpretation Comments LDH (test code = LDH) 192 98-192 [facility] [employer] [id number] 00:34:00 Test Item Value Reference Range Interpretation Comments Total Protein (test code = Total 6.8 6.4-8.4 Protein) [facility] HospitalannCHEM [id number] 00:34:00 Test Item Value Reference Range Interpretation Comments LDH (test code = LDH) 192 98-192 [facility] [employer] [id number] 00:34:00 Test Item Value Reference Range Interpretation Comments Total Protein (test code = Total 6.8 6.4-8.4 Protein) [facility] HospitalannCARDIAC [id number] 14:33:00 Test Item Value Reference Range Interpretation Comments BNP (test code = BNP) 1702 [facility] HospitalannCARDIAC [id number] 14:33:00 Test Item Value Reference Range Interpretation Comments BNP (test code = BNP) 1702 [facility] [employer] [id number] 09:02:00 Test Item Value Reference Range Interpretation Comments B/C Ratio (test code = B/C Ratio) 18 1 6-25 [facility] HospitalHold[facility] Holdings [id number] 09:02:00 Test Item Value Reference Range Interpretation Comments Albumin Lvl (test code = Albumin Lvl) 2.9 3.5-5.0 [facility]2021-02-13 09:02:00 Test Item Value Reference Range Interpretation Comments Globulin (test code = Globulin) 3.7 2.7-4.2 [facility] CenterTeePee Games [id number] 09:02:00 Test Item Value Reference Range Interpretation Comments A/G Ratio (test code = A/G Ratio) 0.8 1 0.7-1.6 [facility] HospitalDiglyKARA [place]ILLE [id number] 09:02:00 Test Item Value Reference Range Interpretation Comments ALT (test code = ALT) 48 See_Comment [Auto mated message] The system which ge nerated this result transmit tammi reference range : <=65. The reference range was not used to interpr et this result as josé miguel l/abnormal. [facility] HospitalHold[facility] Holdings [id number] 09:02:00 Test Item Value Reference Range Interpretation Comments AST (test code = AST) 37 See_Comment [Auto mated message] The system which ge nerated this result transmit tammi reference range : <=37. The reference range was not used to interpr et this result as josé miguel l/abnormal. [facility] HospitalHold[facility] [id number] 09:02:00 Test Item Value Reference Range Interpretation Comments Alk Phos (test code = Alk Phos) 94 39-136 [facility] [id number] 09:02:00 Test Item Value Reference Range Interpretation Comments Bili Total (test code = Bili Total) 1.3 0.2-1.3 [facility]Hold[facility] [id number] 09:02:00 Test Item Value Reference Range Interpretation Comments B/C Ratio (test code = B/C Ratio) 18 1 6-25 [facility]Hold[facility] [id number] 09:02:00 Test Item Value Reference Range Interpretation Comments Albumin Lvl (test code = Albumin Lvl) 2.9 3.5-5.0 [facility] CenterTeePee Games [id number] 09:02:00 Test Item Value Reference Range Interpretation Comments Globulin (test code = Globulin) 3.7 2.7-4.2 [facility]Hold[facility] [id number] 09:02:00 Test Item Value Reference Range Interpretation Comments A/G Ratio (test code = A/G Ratio) 0.8 1 0.7-1.6 [facility] CenterTeePee Games [id number] 09:02:00 Test Item Value Reference Range Interpretation Comments ALT (test code = ALT) 48 See_Comment [Auto mated message] The system which ge nerated this result transmit tammi reference range : <=65. The reference range was not used to interpr et this result as josé miguel l/abnormal. [facility]Hold[facility] [id number] 09:02:00 Test Item Value Reference Range Interpretation Comments AST (test code = AST) 37 See_Comment [Auto mated message] The system which ge nerated this result transmit tammi reference range : <=37. The reference range was not used to interpr et this result as josé miguel l/abnormal. [facility]Hold[facility] [id number] 09:02:00 Test Item Value Reference Range Interpretation Comments Alk Phos (test code = Alk Phos) 94 39-136 [facility] [employer] [id number] 09:02:00 Test Item Value Reference Range Interpretation Comments Bili Total (test code = Bili Total) 1.3 0.2-1.3 [facility] HospitalShowEvidence [id number] 05:01:00 Test Item Value Reference Range Interpretation Comments Troponin-I (test code 0.04 See_Comment [Auto mated message] The = Troponin-I) system which g enerated this result transmit tammi reference range : <=0.40. The reference r princess was not used to interpr et this result as josé miguel l/abnormal. [facility] HospitalI-Works2021-02-13 05:01:00 Test Item Value Reference Range Interpretation Comments Troponin-I (test code 0.04 See_Comment [Auto mated message] The = Troponin-I) system which g enerated this result transmit tammi reference range : <=0.40. The reference r princess was not used to interpr et this result as josé miguel l/abnormal. [facility] [employer]2021-02-13 00:03:00 Test Item Value Reference Range Interpretation Comments Troponin-I (test code 0.03 See_Comment [Auto mated message] The = Troponin-I) system which g enerated this result transmit tammi reference range : <=0.40. The reference r princess was not used to interpr et this result as josé miguel l/abnormal. [facility] [id number] 00:03:00 Test Item Value Reference Range Interpretation Comments Bili Direct (test code 0.5 See_Comment [Aut omated message] The = Bili Direct) system which generated this result tra nsmitted reference range : <=0.3. The reference r princess was not used to int erpret this result as josé miguel l/abnormal. [facility]2021-02-13 00:03:00 Test Item Value Reference Range Interpretation Comments Bili Indirect (test 1.0 See_Comment [Automa tammi message] The code = Bili Indirect) system which generated this result tra nsmitted reference range : <=1.0. The reference r princess was not used to int erpret this result as normal/abnormal . [facility] [id number] 00:03:00 Test Item Value Reference Range Interpretation Comments Troponin-I (test code 0.03 See_Comment [Auto mated message] The = Troponin-I) system which g enerated this result transmit tammi reference range : <=0.40. The reference r princess was not used to interpr et this result as josé miguel l/abnormal. [facility]2021-02-13 00:03:00 Test Item Value Reference Range Interpretation Comments Bili Direct (test code 0.5 See_Comment [Aut omated message] The = Bili Direct) system which generated this result tra nsmitted reference range : <=0.3. The reference r princess was not used to int erpret this result as josé miguel l/abnormal. [facility] [id number] 00:03:00 Test Item Value Reference Range Interpretation Comments Bili Indirect (test 1.0 See_Comment [Automa tammi message] The code = Bili Indirect) system which generated this result tra nsmitted reference range : <=1.0. The reference r princess was not used to int erpret this result as normal/abnormal . [facility]] BASIC METABOLIC PANEL [id number] 09:07:00 Test Item Value Reference Range Interpretation Comments Glucose; Above High Threshold 101 mg/dL 65-99 (test code = 2345-7) BUN (test code = 3094-0) 17 mg/dL 8-27 Creatinine; Above High 1.49 mg/dL 0.76-1.27 Threshold (test code = 2160-0) eGFR If NonAfrcn Am; Below Low 45 mL/min/1.7 >59 Threshold (test code = 52154-5) eGFR If Africn Am; Below Low 52 mL/min/1.7 >59 Threshold (test code = 78839-9) BUN/Creatinine Ratio (test code 08-23 = 3097-3) Sodium, Serum (test code = 134 mmol/L 866-206 9686-2) Potassium; Below Low Threshold 3.2 mmol/L 3.5-5.2 (test code = 2823-3) Chloride; Below Low Threshold 93 mmol/L 96-106 (test code = 2075-0) Carbon Dioxide, Total (test 25 mmol/L code = 2027-9) Calcium (test code = 31223-5) 9.1 mg/dL 8.6-10.2 [facility][QL] [id number] 09:07:00 Test Item Value Reference Range Interpretation Comments Magnesium, Serum (test code = 1.7 mg/dL 1.6-2.3 08757-3) [facility][QL] B TYPE NATRIURETIC PEPTIDE (BNP)2020-12-11 09:07:00 Test Item Value Reference Range Interpretation Comments B-Type Natriuretic Peptide; 1066.2 pg/mL 0.0-100.0 Above High Threshold (test code = 65416-7) [facility][QL] B TYPE NATRIURETIC PEPTIDE (BNP)2020-12-04 08:28:00 Test Item Value Reference Range Interpretation Comments B-Type Natriuretic Peptide; 1259.7 pg/mL 0.0-100.0 Above High Threshold (test code = 27281-4) [place] [facility]agoCHEM [id number] 09:42:00 Test Item Value Reference Range Interpretation Comments Glucose Lvl (test code = Glucose Lvl) 101 70-99 [facility] [id number] 09:42:00 Test Item Value Reference Range Interpretation Comments BUN (test code = BUN) 19 7-22 [facility] [id number] 09:42:00 Test Item Value Reference Range Interpretation Comments Creatinine Lvl (test code = Creatinine 0.87 0.50-1.40 Lvl) [place] 415641-01-24 09:42:00 Test Item Value Reference Range Interpretation Comments Sodium Lvl (test code = Sodium Lvl) 138 135-145 [place] 415641-01-24 09:42:00 Test Item Value Reference Range Interpretation Comments Potassium Lvl (test code = Potassium 3.8 3.5-5.1 Lvl) [place] 415641-01-24 09:42:00 Test Item Value Reference Range Interpretation Comments Chloride Lvl (test code = Chloride Lvl) 105 95-109 [place] 415641-01-24 09:42:00 Test Item Value Reference Range Interpretation Comments CO2 (test code = CO2) 25 24-32 [place] 415641-01-24 09:42:00 Test Item Value Reference Range Interpretation Comments Calcium Lvl (test code = Calcium Lvl) 8.1 8.5-10.5 [place] 415641-01-24 09:42:00 Test Item Value Reference Range Interpretation Comments AGAP (test code = AGAP) 11.8 10.0-20.0 [place] 415641-01-24 09:42:00 Test Item Value Reference Range Interpretation Comments eGFR (test code = eGFR) 84 [place] 496421-01-24 09:42:00 Test Item Value Reference Range Interpretation Comments Segs (test code = Segs) 75.2 45.0-75.0 [place] 496421-01-24 09:42:00 Test Item Value Reference Range Interpretation Comments Lymphocytes (test code = Lymphocytes) 13.3 20.0-40.0 [place] 496421-01-24 09:42:00 Test Item Value Reference Range Interpretation Comments Monocytes (test code = Monocytes) 9.7 2.0-12.0 [place] 496421-01-24 09:42:00 Test Item Value Reference Range Interpretation Comments Eosinophils (test code = 1.3 See_Comment [A utomated message] The Eosinophils) system which ge nerated this result tra nsmitted reference range : <=4.0. The reference r princess was not used to int erpret this result as normal/abnormal . [facility] TempleKzczvlsFQQFJETRMT1810-16-11 09:42:00 Test Item Value Reference Range Interpretation Comments Basophils (test code = 0.5 See_Comment [Aut omated message] The Basophils) system which ge nerated this result tra nsmitted reference range : <=1.0. The reference r princess was not used to int erpret this result as normal/abnormal . [place] 496421-01-24 09:42:00 Test Item Value Reference Range Interpretation Comments Neutrophils # (test code = Neutrophils 5.2 1.5-8.1 #) [place] 496421-01-24 09:42:00 Test Item Value Reference Range Interpretation Comments Lymphocytes # (test code = Lymphocytes 0.9 1.0-5.5 #) [facility] [id number] 09:42:00 Test Item Value Reference Range Interpretation Comments Monocytes # (test code 0.7 See_Comment [Aut omated message] The = Monocytes #) system which generated this result tra nsmitted reference range : <=0.8. The reference r princess was not used to int erpret this result as normal/abnormal . [facility] TempleBoezpssYHPHPSXQLI8180-18-16 09:42:00 Test Item Value Reference Range Interpretation Comments Eosinophils # (test code 0.1 See_Comment [A utomated message] The = Eosinophils #) system whic h generated this result tra nsmitted reference range : <=0.5. The reference r princess was not used to int erpret this result as normal/abnormal . [facility] TempleGdxriqzJMHKNEEIAS4592-60-25 09:42:00 Test Item Value Reference Range Interpretation Comments WBC (test code = WBC) 6.9 3.7-10.4 [facility] TempleYryqsciEKHIRHAIQB0243-66-18 09:42:00 Test Item Value Reference Range Interpretation Comments RBC (test code = RBC) 3.26 4.70-6.10 [place] 496421-01-24 09:42:00 Test Item Value Reference Range Interpretation Comments Hgb (test code = Hgb) 10.4 14.0-18.0 [place] 496421-01-24 09:42:00 Test Item Value Reference Range Interpretation Comments Hct (test code = Hct) 30.6 42.0-54.0 [place] 496421-01-24 09:42:00 Test Item Value Reference Range Interpretation Comments MCV (test code = MCV) 93.9 80.0-94.0 [place] 496421-01-24 09:42:00 Test Item Value Reference Range Interpretation Comments MCH (test code = MCH) 31.8 pg 27.0-31.0 [place] 496421-01-24 09:42:00 Test Item Value Reference Range Interpretation Comments MCHC (test code = MCHC) 33.9 32.0-36.0 [place] 496421-01-24 09:42:00 Test Item Value Reference Range Interpretation Comments RDW (test code = RDW) 15.1 11.5-14.5 [place] 496421-01-24 09:42:00 Test Item Value Reference Range Interpretation Comments Platelet (test code = Platelet) 225 133-450 [place] 496421-01-24 09:42:00 Test Item Value Reference Range Interpretation Comments MPV (test code = MPV) 8.0 7.4-10.4 [place] 415641-01-24 09:42:00 Test Item Value Reference Range Interpretation Comments Glucose Lvl (test code = Glucose Lvl) 101 70-99 [place] 415641-01-24 09:42:00 Test Item Value Reference Range Interpretation Comments BUN (test code = BUN) 19 7-22 [place] 415641-01-24 09:42:00 Test Item Value Reference Range Interpretation Comments Creatinine Lvl (test code = Creatinine 0.87 0.50-1.40 Lvl) [place] 415641-01-24 09:42:00 Test Item Value Reference Range Interpretation Comments Sodium Lvl (test code = Sodium Lvl) 138 135-145 [place] 415641-01-24 09:42:00 Test Item Value Reference Range Interpretation Comments Potassium Lvl (test code = Potassium 3.8 3.5-5.1 Lvl) [place] 415641-01-24 09:42:00 Test Item Value Reference Range Interpretation Comments Chloride Lvl (test code = Chloride Lvl) 105 95-109 [place] 415641-01-24 09:42:00 Test Item Value Reference Range Interpretation Comments CO2 (test code = CO2) -32 [place] 415641-01-24 09:42:00 Test Item Value Reference Range Interpretation Comments Calcium Lvl (test code = Calcium Lvl) 8.1 8.5-10.5 [place] 415641-01-24 09:42:00 Test Item Value Reference Range Interpretation Comments AGAP (test code = AGAP) 11.8 10.0-20.0 [place] 415641-01-24 09:42:00 Test Item Value Reference Range Interpretation Comments eGFR (test code = eGFR) 84 [place] 496421-01-24 09:42:00 Test Item Value Reference Range Interpretation Comments Segs (test code = Segs) 75.2 45.0-75.0 [place] 496421-01-24 09:42:00 Test Item Value Reference Range Interpretation Comments Lymphocytes (test code = Lymphocytes) 13.3 20.0-40.0 [place] 496421-01-24 09:42:00 Test Item Value Reference Range Interpretation Comments Monocytes (test code = Monocytes) 9.7 2.0-12.0 [place] 496421-01-24 09:42:00 Test Item Value Reference Range Interpretation Comments Eosinophils (test code = 1.3 See_Comment [A utomated message] The Eosinophils) system which ge nerated this result tra nsmitted reference range : <=4.0. The reference r princess was not used to int erpret this result as normal/abnormal . [place] 496421-01-24 09:42:00 Test Item Value Reference Range Interpretation Comments Basophils (test code = 0.5 See_Comment [Aut omated message] The Basophils) system which ge nerated this result tra nsmitted reference range : <=1.0. The reference r princess was not used to int erpret this result as normal/abnormal . [place] 496421-01-24 09:42:00 Test Item Value Reference Range Interpretation Comments Neutrophils # (test code = Neutrophils 5.2 1.5-8.1 #) [place] 496421-01-24 09:42:00 Test Item Value Reference Range Interpretation Comments Lymphocytes # (test code = Lymphocytes 0.9 1.0-5.5 #) [place] 496421-01-24 09:42:00 Test Item Value Reference Range Interpretation Comments Monocytes # (test code 0.7 See_Comment [Aut omated message] The = Monocytes #) system which generated this result tra nsmitted reference range : <=0.8. The reference r princess was not used to int erpret this result as normal/abnormal . [facility] TempleTcnsfaqUDEROBSBCK4100-87-70 09:42:00 Test Item Value Reference Range Interpretation Comments Eosinophils # (test code 0.1 See_Comment [A utomated message] The = Eosinophils #) system whic h generated this result tra nsmitted reference range : <=0.5. The reference r princess was not used to int erpret this result as normal/abnormal . [facility] TempleFvsksrrIKFUQMSVJK5797-07-94 09:42:00 Test Item Value Reference Range Interpretation Comments WBC (test code = WBC) 6.9 3.7-10.4 [facility] TempleZatxhanDBYISYIROM6490-92-99 09:42:00 Test Item Value Reference Range Interpretation Comments RBC (test code = RBC) 3.26 4.70-6.10 [facility] TempleSlomdrzEWNQAKJSMH8547-48-59 09:42:00 Test Item Value Reference Range Interpretation Comments Hgb (test code = Hgb) 10.4 14.0-18.0 [facility] TempleCjicxffYUUAAXUHQQ7931-43-61 09:42:00 Test Item Value Reference Range Interpretation Comments Hct (test code = Hct) 30.6 42.0-54.0 [facility] TempleJtddngbMWODXAIDCJ8673-53-83 09:42:00 Test Item Value Reference Range Interpretation Comments MCV (test code = MCV) 93.9 80.0-94.0 [place] 496421-01-24 09:42:00 Test Item Value Reference Range Interpretation Comments MCH (test code = MCH) 31.8 pg 27.0-31.0 [facility] TempleKqnmvuxYCLDSSLPWK8535-75-58 09:42:00 Test Item Value Reference Range Interpretation Comments MCHC (test code = MCHC) 33.9 32.0-36.0 [facility] TempleBngiwtgUCUSXKGOCQ6279-93-42 09:42:00 Test Item Value Reference Range Interpretation Comments RDW (test code = RDW) 15.1 11.5-14.5 [facility] TempleGkrbrfoSLRMSERJKR2027-44-39 09:42:00 Test Item Value Reference Range Interpretation Comments Platelet (test code = Platelet) 225 133-450 [facility]IgjbjloVLXJEJQQYM1181-09-49 09:42:00 Test Item Value Reference Range Interpretation Comments MPV (test code = MPV) 8.0 7.4-10.4 [place] 415641-01-23 09:33:00 Test Item Value Reference Range Interpretation Comments Glucose Lvl (test code = Glucose Lvl) 91 70-99 [place] 415641-01-23 09:33:00 Test Item Value Reference Range Interpretation Comments BUN (test code = BUN) 21 7-22 [place] 415641-01-23 09:33:00 Test Item Value Reference Range Interpretation Comments Creatinine Lvl (test code = Creatinine 1.00 0.50-1.40 Lvl) [place] 415641-01-23 09:33:00 Test Item Value Reference Range Interpretation Comments Sodium Lvl (test code = Sodium Lvl) 139 135-145 [place] 415641-01-23 09:33:00 Test Item Value Reference Range Interpretation Comments Potassium Lvl (test code = Potassium 3.8 3.5-5.1 Lvl) [place] 415641-01-23 09:33:00 Test Item Value Reference Range Interpretation Comments Chloride Lvl (test code = Chloride Lvl) 106 95-109 [place] 415641-01-23 09:33:00 Test Item Value Reference Range Interpretation Comments CO2 (test code = CO2) 25 24-32 [place] 415641-01-23 09:33:00 Test Item Value Reference Range Interpretation Comments Calcium Lvl (test code = Calcium Lvl) 7.9 8.5-10.5 [place] 415641-01-23 09:33:00 Test Item Value Reference Range Interpretation Comments Total Protein (test code = Total 5.5 6.4-8.4 Protein) [place] 415641-01-23 09:33:00 Test Item Value Reference Range Interpretation Comments Albumin Lvl (test code = Albumin Lvl) 2.1 3.5-5.0 [place] 415641-01-23 09:33:00 Test Item Value Reference Range Interpretation Comments ALT (test code = ALT) 56 See_Comment [Auto mated message] The system which ge nerated this result transmit tammi reference range : <=65. The reference range was not used to interpr et this result as josé miguel l/abnormal. [facility] [employer] [id number] 09:33:00 Test Item Value Reference Range Interpretation Comments AST (test code = AST) 34 See_Comment [Auto mated message] The system which ge nerated this result transmit tammi reference range : <=37. The reference range was not used to interpr et this result as josé miguel l/abnormal. [facility] [employer] [id number] 09:33:00 Test Item Value Reference Range Interpretation Comments Alk Phos (test code = Alk Phos) 74 39-136 [facility] [employer] [id number] 09:33:00 Test Item Value Reference Range Interpretation Comments Bili Total (test code = Bili Total) 1.6 0.2-1.3 [facility] [id number] 09:33:00 Test Item Value Reference Range Interpretation Comments AGAP (test code = AGAP) 11.8 10.0-20.0 [facility] [id number] 09:33:00 Test Item Value Reference Range Interpretation Comments B/C Ratio (test code = B/C Ratio) 21 1 6-25 [facility] [id number] 09:33:00 Test Item Value Reference Range Interpretation Comments Globulin (test code = Globulin) 3.4 2.7-4.2 [facility] [id number] 09:33:00 Test Item Value Reference Range Interpretation Comments A/G Ratio (test code = A/G Ratio) 0.6 1 0.7-1.6 [facility] [id number] 09:33:00 Test Item Value Reference Range Interpretation Comments eGFR (test code = eGFR) 73 [facility] CenterUrcpuaeOJNCJUVEFJ1677-22-19 09:33:00 Test Item Value Reference Range Interpretation Comments WBC (test code = WBC) 7.2 3.7-10.4 [place] 496421-01-23 09:33:00 Test Item Value Reference Range Interpretation Comments RBC (test code = RBC) 3.17 4.70-6.10 [facility] CenterIbkilzlPUDEGCHTTE6036-65-29 09:33:00 Test Item Value Reference Range Interpretation Comments Hgb (test code = Hgb) 10.4 14.0-18.0 [facility] TempleSkqgvmgZJTVKGJUBB9807-18-49 09:33:00 Test Item Value Reference Range Interpretation Comments Hct (test code = Hct) 30.1 42.0-54.0 [facility] TempleAhwuqslHVYJKZJVCC3457-66-29 09:33:00 Test Item Value Reference Range Interpretation Comments MCV (test code = MCV) 95.1 80.0-94.0 [facility] TempleZuymdskRZPYKYKLXO1666-08-23 09:33:00 Test Item Value Reference Range Interpretation Comments MCH (test code = MCH) 32.7 pg 27.0-31.0 [facility] TempleMsfkqppLNEPOAPTYR3604-50-36 09:33:00 Test Item Value Reference Range Interpretation Comments MCHC (test code = MCHC) 34.4 32.0-36.0 [facility] TempleQgsnxzyNFOOCMYGHQ9765-15-10 09:33:00 Test Item Value Reference Range Interpretation Comments RDW (test code = RDW) 15.1 11.5-14.5 [facility] TempleIxirdkeWGPHOEGUWM4712-67-78 09:33:00 Test Item Value Reference Range Interpretation Comments Platelet (test code = Platelet) 197 133-450 [facility] TempleZsbnpuiDYUKVOAJSQ7038-56-11 09:33:00 Test Item Value Reference Range Interpretation Comments MPV (test code = MPV) 8.0 7.4-10.4 [facility] TempleItgnljzPOFVCPWXRF3822-61-29 09:33:00 Test Item Value Reference Range Interpretation Comments Segs (test code = Segs) 77.0 45.0-75.0 [facility] TempleOtsuarlZWSRCRRCZQ6004-85-53 09:33:00 Test Item Value Reference Range Interpretation Comments Lymphocytes (test code = Lymphocytes) 12.9 20.0-40.0 [place] 496421-01-23 09:33:00 Test Item Value Reference Range Interpretation Comments Monocytes (test code = Monocytes) 8.9 2.0-12.0 [place] 496421-01-23 09:33:00 Test Item Value Reference Range Interpretation Comments Eosinophils (test code = 1.1 See_Comment [A utomated message] The Eosinophils) system which ge nerated this result tra nsmitted reference range : <=4.0. The reference r princess was not used to int erpret this result as normal/abnormal . [place] 167[address]-01-23 09:33:00 Test Item Value Reference Range Interpretation Comments Basophils (test code = 0.1 See_Comment [Aut omated message] The Basophils) system which ge nerated this result tra nsmitted reference range : <=1.0. The reference r princess was not used to int erpret this result as normal/abnormal . [place] 496421-01-23 09:33:00 Test Item Value Reference Range Interpretation Comments Neutrophils # (test code = Neutrophils 5.6 1.5-8.1 #) [place] 496421-01-23 09:33:00 Test Item Value Reference Range Interpretation Comments Lymphocytes # (test code = Lymphocytes 0.9 1.0-5.5 #) [place] 496421-01-23 09:33:00 Test Item Value Reference Range Interpretation Comments Monocytes # (test code 0.6 See_Comment [Aut omated message] The = Monocytes #) system which generated this result tra nsmitted reference range : <=0.8. The reference r princess was not used to int erpret this result as normal/abnormal . [place] 496421-01-23 09:33:00 Test Item Value Reference Range Interpretation Comments Eosinophils # (test code 0.1 See_Comment [A utomated message] The = Eosinophils #) system whic h generated this result tra nsmitted reference range : <=0.5. The reference r princess was not used to int erpret this result as normal/abnormal . [place] 415641-01-23 09:33:00 Test Item Value Reference Range Interpretation Comments Glucose Lvl (test code = Glucose Lvl) 91 70-99 [place] 415641-01-23 09:33:00 Test Item Value Reference Range Interpretation Comments BUN (test code = BUN) 21 7-22 [place] 415641-01-23 09:33:00 Test Item Value Reference Range Interpretation Comments Creatinine Lvl (test code = Creatinine 1.00 0.50-1.40 Lvl) [place] 415641-01-23 09:33:00 Test Item Value Reference Range Interpretation Comments Sodium Lvl (test code = Sodium Lvl) 139 135-145 [place] 415641-01-23 09:33:00 Test Item Value Reference Range Interpretation Comments Potassium Lvl (test code = Potassium 3.8 3.5-5.1 Lvl) [place] 415641-01-23 09:33:00 Test Item Value Reference Range Interpretation Comments Chloride Lvl (test code = Chloride Lvl) 106 95-109 [place] 81952-01-23 09:33:00 Test Item Value Reference Range Interpretation Comments CO2 (test code = CO2) 25 24-32 [place] 415641-01-23 09:33:00 Test Item Value Reference Range Interpretation Comments Calcium Lvl (test code = Calcium Lvl) 7.9 8.5-10.5 [facility] [id number] 09:33:00 Test Item Value Reference Range Interpretation Comments Total Protein (test code = Total 5.5 6.4-8.4 Protein) [place] 415641-01-23 09:33:00 Test Item Value Reference Range Interpretation Comments Albumin Lvl (test code = Albumin Lvl) 2.1 3.5-5.0 [facility] [id number] 09:33:00 Test Item Value Reference Range Interpretation Comments ALT (test code = ALT) 56 See_Comment [Auto mated message] The system which ge nerated this result transmit tammi reference range : <=65. The reference range was not used to interpr et this result as josé miguel l/abnormal. [facility] [id number] 09:33:00 Test Item Value Reference Range Interpretation Comments AST (test code = AST) 34 See_Comment [Auto mated message] The system which ge nerated this result transmit tammi reference range : <=37. The reference range was not used to interpr et this result as josé miguel l/abnormal. [facility] [id number] 09:33:00 Test Item Value Reference Range Interpretation Comments Alk Phos (test code = Alk Phos) 74 39-136 [facility] [id number] 09:33:00 Test Item Value Reference Range Interpretation Comments Bili Total (test code = Bili Total) 1.6 0.2-1.3 [facility] [id number] 09:33:00 Test Item Value Reference Range Interpretation Comments AGAP (test code = AGAP) 11.8 10.0-20.0 [place] 415641-01-23 09:33:00 Test Item Value Reference Range Interpretation Comments B/C Ratio (test code = B/C Ratio) 21 1 6-25 [place] 415641-01-23 09:33:00 Test Item Value Reference Range Interpretation Comments Globulin (test code = Globulin) 3.4 2.7-4.2 [place] 415641-01-23 09:33:00 Test Item Value Reference Range Interpretation Comments A/G Ratio (test code = A/G Ratio) 0.6 1 0.7-1.6 [place] 81952-01-23 09:33:00 Test Item Value Reference Range Interpretation Comments eGFR (test code = eGFR) 73 [place] 496421-01-23 09:33:00 Test Item Value Reference Range Interpretation Comments WBC (test code = WBC) 7.2 3.7-10.4 [place] 496421-01-23 09:33:00 Test Item Value Reference Range Interpretation Comments RBC (test code = RBC) 3.17 4.70-6.10 [place] 496421-01-23 09:33:00 Test Item Value Reference Range Interpretation Comments Hgb (test code = Hgb) 10.4 14.0-18.0 [place] 496421-01-23 09:33:00 Test Item Value Reference Range Interpretation Comments Hct (test code = Hct) 30.1 42.0-54.0 [place] 496421-01-23 09:33:00 Test Item Value Reference Range Interpretation Comments MCV (test code = MCV) 95.1 80.0-94.0 [place] 496421-01-23 09:33:00 Test Item Value Reference Range Interpretation Comments MCH (test code = MCH) 32.7 pg 27.0-31.0 [place] 496421-01-23 09:33:00 Test Item Value Reference Range Interpretation Comments MCHC (test code = MCHC) 34.4 32.0-36.0 [place] 496421-01-23 09:33:00 Test Item Value Reference Range Interpretation Comments RDW (test code = RDW) 15.1 11.5-14.5 [place] 496421-01-23 09:33:00 Test Item Value Reference Range Interpretation Comments Platelet (test code = Platelet) 197 133-450 [place] 496421-01-23 09:33:00 Test Item Value Reference Range Interpretation Comments MPV (test code = MPV) 8.0 7.4-10.4 [place] 496421-01-23 09:33:00 Test Item Value Reference Range Interpretation Comments Segs (test code = Segs) 77.0 45.0-75.0 [place] 496421-01-23 09:33:00 Test Item Value Reference Range Interpretation Comments Lymphocytes (test code = Lymphocytes) 12.9 20.0-40.0 [place] [address]-01-23 09:33:00 Test Item Value Reference Range Interpretation Comments Monocytes (test code = Monocytes) 8.9 2.0-12.0 [place] 496421-01-23 09:33:00 Test Item Value Reference Range Interpretation Comments Eosinophils (test code = 1.1 See_Comment [A utomated message] The Eosinophils) system which ge nerated this result tra nsmitted reference range : <=4.0. The reference r princess was not used to int erpret this result as normal/abnormal . [place] 496421-01-23 09:33:00 Test Item Value Reference Range Interpretation Comments Basophils (test code = 0.1 See_Comment [Aut omated message] The Basophils) system which ge nerated this result tra nsmitted reference range : <=1.0. The reference r princess was not used to int erpret this result as normal/abnormal . [place] 496421-01-23 09:33:00 Test Item Value Reference Range Interpretation Comments Neutrophils # (test code = Neutrophils 5.6 1.5-8.1 #) [place] 496421-01-23 09:33:00 Test Item Value Reference Range Interpretation Comments Lymphocytes # (test code = Lymphocytes 0.9 1.0-5.5 #) [place] 496421-01-23 09:33:00 Test Item Value Reference Range Interpretation Comments Monocytes # (test code 0.6 See_Comment [Aut omated message] The = Monocytes #) system which generated this result tra nsmitted reference range : <=0.8. The reference r princess was not used to int erpret this result as normal/abnormal . [place] 496421-01-23 09:33:00 Test Item Value Reference Range Interpretation Comments Eosinophils # (test code 0.1 See_Comment [A utomated message] The = Eosinophils #) system whic h generated this result tra nsmitted reference range : <=0.5. The reference r princess was not used to int erpret this result as normal/abnormal . [place] 496421-01-22 16:16:00 Test Item Value Reference Range Interpretation Comments PTT (test code = PTT) 102.9 s 22.9-35.8 [place] 496421-01-22 16:16:00 Test Item Value Reference Range Interpretation Comments PTT (test code = PTT) 102.9 s 22.9-35.8 [place] 415641-01-22 09:04:00 Test Item Value Reference Range Interpretation Comments Glucose Lvl (test code = Glucose Lvl) 108 70-99 [place] 415641-01-22 09:04:00 Test Item Value Reference Range Interpretation Comments BUN (test code = BUN) 25 7-22 [place] 415641-01-22 09:04:00 Test Item Value Reference Range Interpretation Comments Creatinine Lvl (test code = Creatinine 1.13 0.50-1.40 Lvl) [place] 415641-01-22 09:04:00 Test Item Value Reference Range Interpretation Comments Sodium Lvl (test code = Sodium Lvl) 138 135-145 [place] 415641-01-22 09:04:00 Test Item Value Reference Range Interpretation Comments Potassium Lvl (test code = Potassium 3.8 3.5-5.1 Lvl) [place] 415641-01-22 09:04:00 Test Item Value Reference Range Interpretation Comments Chloride Lvl (test code = Chloride Lvl) 105 95-109 [place] 415641-01-22 09:04:00 Test Item Value Reference Range Interpretation Comments CO2 (test code = CO2) 25 24-32 [place] 415641-01-22 09:04:00 Test Item Value Reference Range Interpretation Comments AGAP (test code = AGAP) 11.8 10.0-20.0 [place] 415641-01-22 09:04:00 Test Item Value Reference Range Interpretation Comments Calcium Lvl (test code = Calcium Lvl) 7.9 8.5-10.5 [place] 415641-01-22 09:04:00 Test Item Value Reference Range Interpretation Comments B/C Ratio (test code = B/C Ratio) 22 1 6-25 [facility] [id number] 09:04:00 Test Item Value Reference Range Interpretation Comments Total Protein (test code = Total 5.7 6.4-8.4 Protein) [place] 415641-01-22 09:04:00 Test Item Value Reference Range Interpretation Comments Albumin Lvl (test code = Albumin Lvl) 2.2 3.5-5.0 [facility] [id number] 09:04:00 Test Item Value Reference Range Interpretation Comments Globulin (test code = Globulin) 3.5 2.7-4.2 [facility] [id number] 09:04:00 Test Item Value Reference Range Interpretation Comments A/G Ratio (test code = A/G Ratio) 0.6 1 0.7-1.6 [facility] [id number] 09:04:00 Test Item Value Reference Range Interpretation Comments ALT (test code = ALT) 67 See_Comment [Auto mated message] The system which ge nerated this result transmit tammi reference range : <=65. The reference range was not used to interpr et this result as josé miguel l/abnormal. [facility] [id number] 09:04:00 Test Item Value Reference Range Interpretation Comments AST (test code = AST) 48 See_Comment [Auto mated message] The system which ge nerated this result transmit tammi reference range : <=37. The reference range was not used to interpr et this result as josé miguel l/abnormal. [facility] [id number] 09:04:00 Test Item Value Reference Range Interpretation Comments Alk Phos (test code = Alk Phos) 81 39-136 [facility] [id number] 09:04:00 Test Item Value Reference Range Interpretation Comments Bili Total (test code = Bili Total) 1.7 0.2-1.3 [facility] [id number] 09:04:00 Test Item Value Reference Range Interpretation Comments eGFR (test code = eGFR) 63 [facility] [id number] 09:04:00 Test Item Value Reference Range Interpretation Comments WBC (test code = WBC) 9.2 3.7-10.4 [facility] [id number] 09:04:00 Test Item Value Reference Range Interpretation Comments RBC (test code = RBC) 3.29 4.70-6.10 [facility] [id number] 09:04:00 Test Item Value Reference Range Interpretation Comments Hgb (test code = Hgb) 10.6 14.0-18.0 [facility] TempleVbeklfhLAAFDGCYIO6066-02-31 09:04:00 Test Item Value Reference Range Interpretation Comments Hct (test code = Hct) 31.3 42.0-54.0 [facility] [id number] 09:04:00 Test Item Value Reference Range Interpretation Comments MCV (test code = MCV) 95.1 80.0-94.0 [facility] TempleFoitjkdKOHAUWEHWK8356-96-21 09:04:00 Test Item Value Reference Range Interpretation Comments MCH (test code = MCH) 32.2 pg 27.0-31.0 [facility] TempleBqjppbgKCUVDPWRFG3925-89-07 09:04:00 Test Item Value Reference Range Interpretation Comments MCHC (test code = MCHC) 33.8 32.0-36.0 [facility] [id number] 09:04:00 Test Item Value Reference Range Interpretation Comments RDW (test code = RDW) 14.8 11.5-14.5 [facility] TempleZsgfjslCFTFQXDELP6257-18-33 09:04:00 Test Item Value Reference Range Interpretation Comments Platelet (test code = Platelet) 200 133-450 [facility] [id number] 09:04:00 Test Item Value Reference Range Interpretation Comments MPV (test code = MPV) 8.3 7.4-10.4 [facility] T[id number] 09:04:00 Test Item Value Reference Range Interpretation Comments Segs (test code = Segs) 77.6 45.0-75.0 [facility] TempleTmgztkoZREWWOITOH1316-11-69 09:04:00 Test Item Value Reference Range Interpretation Comments Lymphocytes (test code = Lymphocytes) 13.3 20.0-40.0 [place] 496421-01-22 09:04:00 Test Item Value Reference Range Interpretation Comments Monocytes (test code = Monocytes) 8.5 2.0-12.0 [place] 496421-01-22 09:04:00 Test Item Value Reference Range Interpretation Comments Eosinophils (test code = 0.4 See_Comment [A utomated message] The Eosinophils) system which ge nerated this result tra nsmitted reference range : <=4.0. The reference r princess was not used to int erpret this result as normal/abnormal . [place] 496421-01-22 09:04:00 Test Item Value Reference Range Interpretation Comments Basophils (test code = 0.2 See_Comment [Aut omated message] The Basophils) system which ge nerated this result tra nsmitted reference range : <=1.0. The reference r princess was not used to int erpret this result as normal/abnormal . [place] 496421-01-22 09:04:00 Test Item Value Reference Range Interpretation Comments Neutrophils # (test code = Neutrophils 7.1 1.5-8.1 #) [place] 496421-01-22 09:04:00 Test Item Value Reference Range Interpretation Comments Lymphocytes # (test code = Lymphocytes 1.2 1.0-5.5 #) [place] 496421-01-22 09:04:00 Test Item Value Reference Range Interpretation Comments Monocytes # (test code 0.8 See_Comment [Aut omated message] The = Monocytes #) system which generated this result tra nsmitted reference range : <=0.8. The reference r princess was not used to int erpret this result as normal/abnormal . [place] 496421-01-22 09:04:00 Test Item Value Reference Range Interpretation Comments PTT (test code = PTT) 65.3 s 22.9-35.8 [place] 415641-01-22 09:04:00 Test Item Value Reference Range Interpretation Comments Glucose Lvl (test code = Glucose Lvl) 108 70-99 [place] 415641-01-22 09:04:00 Test Item Value Reference Range Interpretation Comments BUN (test code = BUN) 25 7-22 [place] 415641-01-22 09:04:00 Test Item Value Reference Range Interpretation Comments Creatinine Lvl (test code = Creatinine 1.13 0.50-1.40 Lvl) [place] 415641-01-22 09:04:00 Test Item Value Reference Range Interpretation Comments Sodium Lvl (test code = Sodium Lvl) 138 135-145 [place] 415641-01-22 09:04:00 Test Item Value Reference Range Interpretation Comments Potassium Lvl (test code = Potassium 3.8 3.5-5.1 Lvl) [place] 415641-01-22 09:04:00 Test Item Value Reference Range Interpretation Comments Chloride Lvl (test code = Chloride Lvl) 105 95-109 [place] 415641-01-22 09:04:00 Test Item Value Reference Range Interpretation Comments CO2 (test code = CO2) 25 24-32 [place] 415641-01-22 09:04:00 Test Item Value Reference Range Interpretation Comments AGAP (test code = AGAP) 11.8 10.0-20.0 [place]641-01-22 09:04:00 Test Item Value Reference Range Interpretation Comments Calcium Lvl (test code = Calcium Lvl) 7.9 8.5-10.5 [place] 415641-01-22 09:04:00 Test Item Value Reference Range Interpretation Comments B/C Ratio (test code = B/C Ratio) 22 1 6-25 [place] 415641-01-22 09:04:00 Test Item Value Reference Range Interpretation Comments Total Protein (test code = Total 5.7 6.4-8.4 Protein) [place] 415641-01-22 09:04:00 Test Item Value Reference Range Interpretation Comments Albumin Lvl (test code = Albumin Lvl) 2.2 3.5-5.0 [place] 415641-01-22 09:04:00 Test Item Value Reference Range Interpretation Comments Globulin (test code = Globulin) 3.5 2.7-4.2 [place] 415641-01-22 09:04:00 Test Item Value Reference Range Interpretation Comments A/G Ratio (test code = A/G Ratio) 0.6 1 0.7-1.6 [place] 415641-01-22 09:04:00 Test Item Value Reference Range Interpretation Comments ALT (test code = ALT) 67 See_Comment [Auto mated message] The system which ge nerated this result transmit tammi reference range : <=65. The reference range was not used to interpr et this result as josé miguel l/abnormal. [facility] [id number] 09:04:00 Test Item Value Reference Range Interpretation Comments AST (test code = AST) 48 See_Comment [Auto mated message] The system which ge nerated this result transmit tammi reference range : <=37. The reference range was not used to interpr et this result as josé miguel l/abnormal. [facility] [id number] 09:04:00 Test Item Value Reference Range Interpretation Comments Alk Phos (test code = Alk Phos) 81 39-136 [facility] [id number] 09:04:00 Test Item Value Reference Range Interpretation Comments Bili Total (test code = Bili Total) 1.7 0.2-1.3 [facility] [id number] 09:04:00 Test Item Value Reference Range Interpretation Comments eGFR (test code = eGFR) 63 [place] 496421-01-22 09:04:00 Test Item Value Reference Range Interpretation Comments WBC (test code = WBC) 9.2 3.7-10.4 [place] 496421-01-22 09:04:00 Test Item Value Reference Range Interpretation Comments RBC (test code = RBC) 3.29 4.70-6.10 [place] 496421-01-22 09:04:00 Test Item Value Reference Range Interpretation Comments Hgb (test code = Hgb) 10.6 14.0-18.0 [place] 496421-01-22 09:04:00 Test Item Value Reference Range Interpretation Comments Hct (test code = Hct) 31.3 42.0-54.0 [place] 496421-01-22 09:04:00 Test Item Value Reference Range Interpretation Comments MCV (test code = MCV) 95.1 80.0-94.0 [place] 496421-01-22 09:04:00 Test Item Value Reference Range Interpretation Comments MCH (test code = MCH) 32.2 pg 27.0-31.0 [place] 496421-01-22 09:04:00 Test Item Value Reference Range Interpretation Comments MCHC (test code = MCHC) 33.8 32.0-36.0 [place] 496421-01-22 09:04:00 Test Item Value Reference Range Interpretation Comments RDW (test code = RDW) 14.8 11.5-14.5 [place] 496421-01-22 09:04:00 Test Item Value Reference Range Interpretation Comments Platelet (test code = Platelet) 200 133-450 [place] 496421-01-22 09:04:00 Test Item Value Reference Range Interpretation Comments MPV (test code = MPV) 8.3 7.4-10.4 [place] 496421-01-22 09:04:00 Test Item Value Reference Range Interpretation Comments Segs (test code = Segs) 77.6 45.0-75.0 [place] 496421-01-22 09:04:00 Test Item Value Reference Range Interpretation Comments Lymphocytes (test code = Lymphocytes) 13.3 20.0-40.0 [place] 496421-01-22 09:04:00 Test Item Value Reference Range Interpretation Comments Monocytes (test code = Monocytes) 8.5 2.0-12.0 [place] 496421-01-22 09:04:00 Test Item Value Reference Range Interpretation Comments Eosinophils (test code = 0.4 See_Comment [A utomated message] The Eosinophils) system which ge nerated this result tra nsmitted reference range : <=4.0. The reference r princess was not used to int erpret this result as normal/abnormal . [facility] [id number] 09:04:00 Test Item Value Reference Range Interpretation Comments Basophils (test code = 0.2 See_Comment [Aut omated message] The Basophils) system which ge nerated this result tra nsmitted reference range : <=1.0. The reference r princess was not used to int erpret this result as normal/abnormal . [place] 496421-01-22 09:04:00 Test Item Value Reference Range Interpretation Comments Neutrophils # (test code = Neutrophils 7.1 1.5-8.1 #) [place] 496421-01-22 09:04:00 Test Item Value Reference Range Interpretation Comments Lymphocytes # (test code = Lymphocytes 1.2 1.0-5.5 #) [place] 496421-01-22 09:04:00 Test Item Value Reference Range Interpretation Comments Monocytes # (test code 0.8 See_Comment [Aut omated message] The = Monocytes #) system which generated this result tra nsmitted reference range : <=0.8. The reference r princess was not used to int erpret this result as normal/abnormal . [place] 496421-01-22 09:04:00 Test Item Value Reference Range Interpretation Comments PTT (test code = PTT) 65.3 s 22.9-35.8 [place] 496421-01-22 02:13:00 Test Item Value Reference Range Interpretation Comments PTT (test code = PTT) 116.3 s 22.9-35.8 [place] 496421-01-22 02:13:00 Test Item Value Reference Range Interpretation Comments PTT (test code = PTT) 116.3 s 22.9-35.8 [place] 415641-01-21 11:31:00 Test Item Value Reference Range Interpretation Comments Procalcitonin Lvl (test 0.21 See_Comment [Au tomated message] code = Procalcitonin Lvl) Th e system which generated this result transmitted ref erence range: <=0.10. The reference range was not used to interpr et this result as normal/abnormal . [place] 415641-01-21 11:31:00 Test Item Value Reference Range Interpretation Comments B/C Ratio (test code = B/C Ratio) 15 1 6-25 [place] 415641-01-21 11:31:00 Test Item Value Reference Range Interpretation Comments Total Protein (test code = Total 6.2 6.4-8.4 Protein) [place] 415641-01-21 11:31:00 Test Item Value Reference Range Interpretation Comments Albumin Lvl (test code = Albumin Lvl) 2.6 3.5-5.0 [place] 415641-01-21 11:31:00 Test Item Value Reference Range Interpretation Comments Globulin (test code = Globulin) 3.6 2.7-4.2 [place] 415641-01-21 11:31:00 Test Item Value Reference Range Interpretation Comments A/G Ratio (test code = A/G Ratio) 0.7 1 0.7-1.6 [facility] [employer] [id number] 11:31:00 Test Item Value Reference Range Interpretation Comments ALT (test code = ALT) 80 See_Comment [Auto mated message] The system which ge nerated this result transmit tammi reference range : <=65. The reference range was not used to interpr et this result as josé miguel l/abnormal. [facility] [employer] [id number] 11:31:00 Test Item Value Reference Range Interpretation Comments AST (test code = AST) 131 See_Comment [Auto mated message] The system which ge nerated this result transmit tammi reference range : <=37. The reference range was not used to interpr et this result as josé miguel l/abnormal. [facility] [employer] [id number] 11:31:00 Test Item Value Reference Range Interpretation Comments Alk Phos (test code = Alk Phos) 65 39-136 [facility] [employer] [id number] 11:31:00 Test Item Value Reference Range Interpretation Comments Bili Total (test code = Bili Total) 3.1 0.2-1.3 [facility] [employer] [id number] 11:31:00 Test Item Value Reference Range Interpretation Comments Procalcitonin Lvl (test 0.21 See_Comment [Au tomated message] code = Procalcitonin Lvl) Th e system which generated this result transmitted ref erence range: <=0.10. The reference range was not used to interpr et this result as normal/abnormal . [facility] [employer] [id number] 11:31:00 Test Item Value Reference Range Interpretation Comments B/C Ratio (test code = B/C Ratio) 15 1 6-25 [facility] [employer] [id number] 11:31:00 Test Item Value Reference Range Interpretation Comments Total Protein (test code = Total 6.2 6.4-8.4 Protein) [facility] [employer] [id number] 11:31:00 Test Item Value Reference Range Interpretation Comments Albumin Lvl (test code = Albumin Lvl) 2.6 3.5-5.0 [facility] [employer] [id number] 11:31:00 Test Item Value Reference Range Interpretation Comments Globulin (test code = Globulin) 3.6 2.7-4.2 [place] 415641-01-21 11:31:00 Test Item Value Reference Range Interpretation Comments A/G Ratio (test code = A/G Ratio) 0.7 1 0.7-1.6 [place] 415641-01-21 11:31:00 Test Item Value Reference Range Interpretation Comments ALT (test code = ALT) 80 See_Comment [Auto mated message] The system which ge nerated this result transmit tammi reference range : <=65. The reference range was not used to interpr et this result as josé miguel l/abnormal. [place] 415641-01-21 11:31:00 Test Item Value Reference Range Interpretation Comments AST (test code = AST) 131 See_Comment [Auto mated message] The system which ge nerated this result transmit tammi reference range : <=37. The reference range was not used to interpr et this result as josé miguel l/abnormal. [place] 415641-01-21 11:31:00 Test Item Value Reference Range Interpretation Comments Alk Phos (test code = Alk Phos) 65 39-136 [place] 415641-01-21 11:31:00 Test Item Value Reference Range Interpretation Comments Bili Total (test code = Bili Total) 3.1 0.2-1.3 [place] 496421-01-20 23:30:00 Test Item Value Reference Range Interpretation Comments PT (test code = PT) 17.2 s 12.0-14.7 [place] 496421-01-20 23:30:00 Test Item Value Reference Range Interpretation Comments INR (test code = INR) 1.44 1 0.85-1.17 [place] 496421-01-20 23:30:00 Test Item Value Reference Range Interpretation Comments PT (test code = PT) 17.2 s 12.0-14.7 [place] 496421-01-20 23:30:00 Test Item Value Reference Range Interpretation Comments INR (test code = INR) 1.44 1 0.85-1.17 [place] 16775-01-20 16:01:00 Test Item Value Reference Range Interpretation Comments PT (test code = PT) 16.8 s 12.0-14.7 [place] 496421-01-20 16:01:00 Test Item Value Reference Range Interpretation Comments INR (test code = INR) 1.39 1 0.85-1.17 [facility] 16:01:00 Test Item Value Reference Range Interpretation Comments PT (test code = PT) 16.8 s 12.0-14.7 [facility] [id number] 16:01:00 Test Item Value Reference Range Interpretation Comments INR (test code = INR) 1.39 1 0.85-1.17 [facility] [id number] 14:48:00 Test Item Value Reference Range Interpretation Comments ABO/Rh (test code = ABO/Rh) A POS [facility] [id number] 14:48:00 Test Item Value Reference Range Interpretation Comments Antibody Scrn (test Negative (11/19/20 8:48 code = Antibody Scrn) AM) [facility] [id number] 14:48:00 Test Item Value Reference Range Interpretation Comments ABO/Rh (test code = ABO/Rh) A POS [facility] [id number] 14:48:00 Test Item Value Reference Range Interpretation Comments Antibody Scrn (test Negative (11/19/20 8:48 code = Antibody Scrn) AM) [facility] [id number] 14:27:00 Test Item Value Reference Range Interpretation Comments RBC product (test code Product available = RBC product) 4(11/19/20 8:27 AM) [facility] [id number] 14:27:00 Test Item Value Reference Range Interpretation Comments RBC product (test code Product available = RBC product) 4(11/19/20 8:27 AM) [facility] [id number] 11:38:00 Test Item Value Reference Range Interpretation Comments Magnesium Lvl (test code = Magnesium 2.2 1.8-2.4 Lvl) [facility] [id number] 11:38:00 Test Item Value Reference Range Interpretation Comments Phosphorus (test code = Phosphorus) 3.3 2.5-4.5 [facility] [id number] 11:38:00 Test Item Value Reference Range Interpretation Comments Ca Ion WB (test code = Ca Ion WB) 1.10 1.05-1.25 [facility]2021-01-20 11:38:00 Test Item Value Reference Range Interpretation Comments Ca Norm WB (test code = Ca Norm WB) 1.11 1.05-1.25 [facility]2021-01-20 11:38:00 Test Item Value Reference Range Interpretation Comments Magnesium Lvl (test code = Magnesium 2.2 1.8-2.4 Lvl) [facility]2021-01-20 11:38:00 Test Item Value Reference Range Interpretation Comments Phosphorus (test code = Phosphorus) 3.3 2.5-4.5 [facility]2021-01-20 11:38:00 Test Item Value Reference Range Interpretation Comments Ca Ion WB (test code = Ca Ion WB) 1.10 1.05-1.25 [facility]2021-01-20 11:38:00 Test Item Value Reference Range Interpretation Comments Ca Norm WB (test code = Ca Norm WB) 1.11 1.05-1.25 [id number] 10:03:00 Test Item Value Reference Range Interpretation Comments PT (test code = PT) 16.6 s 12.0-14.7 [facility] [id number] 10:03:00 Test Item Value Reference Range Interpretation Comments INR (test code = INR) 1.37 1 0.85-1.17 [facility] [id number] 10:03:00 Test Item Value Reference Range Interpretation Comments PT (test code = PT) 16.6 s 12.0-14.7 [facility] [id number] 10:03:00 Test Item Value Reference Range Interpretation Comments INR (test code = INR) 1.37 1 0.85-1.17 [facility]2021-01-20 04:04:00 Test Item Value Reference Range Interpretation Comments Lactic Acid Lvl (test code = Lactic 1.6 0.5-2.2 Acid Lvl) [facility]2021-01-20 04:04:00 Test Item Value Reference Range Interpretation Comments Lactic Acid Lvl (test code = Lactic 1.6 0.5-2.2 Acid Lvl) [facility] [id number] 09:18:00 Test Item Value Reference Range Interpretation Comments Troponin-I (test code 0.08 See_Comment [Auto mated message] The = Troponin-I) system which g enerated this result transmit tammi reference range : <=0.40. The reference r princess was not used to interpr et this result as josé miguel l/abnormal. [facility] [employer] [id number] 09:18:00 Test Item Value Reference Range Interpretation Comments Magnesium Lvl (test code = Magnesium 1.9 1.8-2.4 Lvl) [facility] [id number] 09:18:00 Test Item Value Reference Range Interpretation Comments PSA (test code = PSA) 0.2 [facility] [id number] 09:18:00 Test Item Value Reference Range Interpretation Comments CEA (test code = CEA) 1.1 See_Comment [Auto mated message] The system which ge nerated this result transmit tammi reference range : <=3.0. The reference range was not used to interpr et this result as josé miguel l/abnormal. [facility] 09:18:00 Test Item Value Reference Range Interpretation Comments Troponin-I (test code 0.08 See_Comment [Auto mated message] The = Troponin-I) system which g enerated this result transmit tammi reference range : <=0.40. The reference r princess was not used to interpr et this result as josé miguel l/abnormal. [facility] [employer] [id number] 09:18:00 Test Item Value Reference Range Interpretation Comments Magnesium Lvl (test code = Magnesium 1.9 1.8-2.4 Lvl) [facility] [id number] 09:18:00 Test Item Value Reference Range Interpretation Comments PSA (test code = PSA) 0.2 [facility] [employer]UM[employer] [id number] 09:18:00 Test Item Value Reference Range Interpretation Comments CEA (test code = CEA) 1.1 See_Comment [Auto mated message] The system which ge nerated this result transmit tammi reference range : <=3.0. The reference range was not used to interpr et this result as josé miguel l/abnormal. [facility] [employer]2021-01-19 03:01:00 Test Item Value Reference Range Interpretation Comments Troponin-I (test code 0.06 See_Comment [Auto mated message] The = Troponin-I) system which g enerated this result transmit tammi reference range : <=0.40. The reference r princess was not used to interpr et this result as josé miguel l/abnormal. [facility] [id number] 03:01:00 Test Item Value Reference Range Interpretation Comments Procalcitonin Lvl (test no gt See_Comment [Au tomated message] code = Procalcitonin Lvl) Th e system which generated this result transmitted ref erence range: <=0.10. The reference range was not used to interpr et this result as normal/abnormal . [facility]2021-01-19 03:01:00 Test Item Value Reference Range Interpretation Comments Troponin-I (test code 0.06 See_Comment [Auto mated message] The = Troponin-I) system which g enerated this result transmit tammi reference range : <=0.40. The reference r princess was not used to interpr et this result as josé miguel l/abnormal. [facility] [id number] 03:01:00 Test Item Value Reference Range Interpretation Comments Procalcitonin Lvl (test no gt See_Comment [Au tomated message] code = Procalcitonin Lvl) Th e system which generated this result transmitted ref erence range: <=0.10. The reference range was not used to interpr et this result as normal/abnormal . [facility] [id number] 01:18:00 Test Item Value Reference Range Interpretation Comments D-Dimer (test code = D-Dimer) 3.92 [id number] 01:18:00 Test Item Value Reference Range Interpretation Comments Coronavirus (COVID-19) Not Detected (11/17/20 NATHALY (test code = 7:18 PM) Coronavirus (COVID-19) NATHALY) [place] [id number] 01:18:00 Test Item Value Reference Range Interpretation Comments D-Dimer (test code = D-Dimer) 3.92 [facility] [id number] 01:18:00 Test Item Value Reference Range Interpretation Comments Coronavirus (COVID-19) Not Detected (11/17/20 NATHALY (test code = 7:18 PM) Coronavirus (COVID-19) NATHALY) [facility] [employer]2021-01-18 22:50:00 Test Item Value Reference Range Interpretation Comments Troponin-I (test code 0.07 See_Comment [Auto mated message] The = Troponin-I) system which g enerated this result transmit tammi reference range : <=0.40. The reference r princess was not used to interpr et this result as josé miguel l/abnormal. [facility] [employer]2021-01-18 22:50:00 Test Item Value Reference Range Interpretation Comments BNP (test code = BNP) 1010 [employer] [id number] 22:50:00 Test Item Value Reference Range Interpretation Comments Lipase Lvl (test code = Lipase Lvl) [phone] [facility]21-[facility]-18 22:50:00 Test Item Value Reference Range Interpretation Comments Troponin-I (test code 0.07 See_Comment [Auto mated message] The = Troponin-I) system which g enerated this result transmit tammi reference range : <=0.40. The reference r princess was not used to interpr et this result as josé miguel l/abnormal. [facility] [employer]2021-01-18 22:50:00 Test Item Value Reference Range Interpretation Comments BNP (test code = BNP) 1010 [employer] [id number] 22:50:00 Test Item Value Reference Range Interpretation Comments Lipase Lvl (test code = Lipase Lvl) [phone] [facility]
[2022-10-13 16:29] LABS: Absolute Lymphocytes (CBC) 1.4 K/uL (0.7-4.9); Hematocrit 39.2 % (39.6-49.0); Lymphocytes % 26.6 % (15.3-44.8); MCV 95.8 fL (80-100); MPV 9.8 fL (7.6-11.3); RBC Red Blood Cell Count 4.09 M/uL (4.33-5.43)
[2022-10-13 16:33] LABS: Protime INR 3.22
[2022-10-13 16:42] LABS: SARS-CoV-2 Antigen Rapid Res Negative (Negative)
[2022-10-13] MEDS ORDERED: NA CHLORIDE 0.9% 250 ML ONE (16:44)
--- NOTE | 2022-10-13 16:45 | RAD REPORT ---
EXAM DESCRIPTION: [place] Single View10/13/2022 4:07 pm CLINICAL HISTORY: Chest pain COMPARISON: 2020 FINDINGS: Mild bilateral pulmonary opacities Heart is moderately to markedly enlarged. There may be small pleural effusions IMPRESSION: Mild CHF
[2022-10-13 16:49] LABS: Albumin 3.4 g/dL (3.4-5.0); Bilirubin Direct 0.8 mg/dL (0-0.2); Bilirubin Total 2.2 mg/dL (0.2-1.0); Magnesium 2.6 mg/dL (1.6-2.4); Potassium 3.8 mmol/L (3.5-5.1); Protein, Total 6.7 g/dL (6.4-8.2); Troponin High Sensitivity 58.3 pg/mL (<58.9)
--- NOTE | 2022-10-13 16:59 | RAD REPORT ---
EXAM DESCRIPTION: USExtrem Venous W Compress Bil10/13/2022 4:41 pm CLINICAL HISTORY: Leg swelling COMPARISON: none FINDINGS: The common femoral, superficial femoral, popliteal and posterior tibial veins bilaterally are compressible and demonstrate augmentation. Doppler demonstrates good flow. Grayscale, color and spectral analysis performed on all vessels IMPRESSION: No evidence of deep venous thrombosis involving either lower extremity.
--- NOTE | 2022-10-13 17:04 | ER ---
Nurse's Notes [facility] Name: Manjeet Zhu Age: 77 yrs Sex: Male : 1945 Arrival Date: 10/13/2022 Time: 15:27 Bed 23 Private MD: Suresh Kelley; Mauricio Hair Diagnosis: Generalized edema;Acute on chronic combined systolic (congestive) and diastolic (congestive) heart failure Presentation: 10/13 15:34 Chief complaint: Patient states: i have congestive heart failure and i have swelling in [facility] my legs, both of them. Its been going on the last couple weeks and i been working with the diuretics but theyre just getting worse, as bad as it's ever been. and swelling in my stomach too. Coronavirus screen: Vaccine status: Patient reports receiving the 2nd dose of the covid vaccine. Client denies travel out of the [place] in the last 14 days. Ebola Screen: Patient negative for fever greater than or equal to 101.5 degrees Fahrenheit, and additional compatible Ebola Virus Disease symptoms Patient denies exposure to infectious person. Patient denies travel to an Ebola-affected area in the 21 days before illness onset. Initial Sepsis Screen: Does the patient meet any 2 criteria? No. Patient's initial sepsis screen is negative. Does the patient have a suspected source of infection? No. Patient's initial sepsis screen is negative. Risk Assessment: Do you want to hurt yourself or someone else? Patient reports no desire to harm self or others. 15:34 Method Of Arrival: Ambulatory [facility] 15:34 Acuity: KAVITA 3 [facility] 16:28 Onset of symptoms is unknown. em6 Triage Assessment: 15:37 General: Appears uncomfortable, slender, Behavior is calm, cooperative, appropriate for [facility] age. Pain: Denies pain. Historical: - Home Meds: 16:31 levothyroxine oral [Active]; bumetanide 2 mg Oral tab [Active]; Entresto 49-51 mg oral em6 tab [Active]; atorvastatin oral [Active]; Xarelto 20 mg oral tab [Active]; zolpidem 10 mg Oral tab [Active]; - PMHx: 15:37 CVA; High Cholesterol; Hypertension; Myocardial infarction; jh5 - Immunization history:: Adult Immunizations up to date. - Social history:: Smoking status: Patient denies any tobacco usage or history of. Screenin:25 Abuse screen: Denies threats or abuse. Nutritional screening: No deficits noted. em6 Tuberculosis screening: No symptoms or risk factors identified. Fall Risk Total Paula Fall Scale indicates No Risk (0-24 pts). 16:27 [facility] ED Fall Risk Assessment (Adult) History of falling in the last 3 months, em6 including since admission No falls in past 3 months (0 pts) Confusion or Disorientation No (0 pts) Intoxicated or Sedated No (0 pts) Impaired Gait No (0 pts) Mobility Assist Device Used No (0 pt) Altered Elimination No (0 pt) Score/Fall Risk Level 0 - 2 = Low Risk Oriented to surroundings, Maintained a safe environment, Educated pt \T\ family on fall prevention, incl call for assistance when getting out of bed, Assessed \T\ reinforced patient's understanding of fall precautions, Hourly rounding (assess needs \T\ fall precautionary measures) done. Assessment: 16:25 General: Appears in no apparent distress. Behavior is cooperative. Pain: Denies pain. em6 Neuro: Level of Consciousness is awake, alert, obeys commands, Oriented to person, place, time, situation. Cardiovascular: Patient's skin is warm and dry. Rhythm is with capture. Respiratory: Reports cough that is non-productive, Airway is patent Respiratory effort is even, unlabored, Respiratory pattern is regular, symmetrical. GI: Abdomen is distended, Bowel sounds present X 4 quads. Abdomen is tender to palpation X 4 quads. : No signs and/or symptoms were reported regarding the genitourinary system. EENT: No signs and/or symptoms were reported regarding the EENT system. Derm: No signs and/or symptoms reported regarding the dermatologic system. Musculoskeletal: Circulation, motion, and sensation intact. Range of motion: intact in all extremities, Swelling present in right leg and left leg. 17:30 Reassessment: Patient appears in no apparent distress at this time. No changes from em6 previously documented assessment. Patient and/or family updated on plan of care and expected duration. Pain level reassessed. Patient is alert, oriented x 3, equal unlabored respirations, skin warm/dry/pink. 18:39 Reassessment: Patient appears in no apparent distress at this time. No changes from em6 previously documented assessment. Patient and/or family updated on plan of care and expected duration. Pain level reassessed. Patient is alert, oriented x 3, equal unlabored respirations, skin warm/dry/pink. 20:21 Reassessment: charting will continue in [facility]. em6 20:56 Reassessment: gave nurse to nurse report to mariela marshall. em6 Vital Signs: 15:34 BP 82 / 72; Pulse 89; Resp 20; Temp 98.8; Pulse Ox 100% ; Weight 86.18 kg; Height 6 ft. jh5 0 in. (182.88 cm); Pain 0/10; 15:34 BP 81 / 61; jh5 16:31 BP 85 / 66; Pulse 71; Resp 16; Pulse Ox 99% on R/A; em6 17:26 BP 86 / 73; Pulse 86; Resp 18; Pulse Ox 100% on R/A; em6 18:30 BP 93 / 70; Pulse 81; Resp 14; Pulse Ox 98% on R/A; em6 15:34 Body Mass Index 25.77 (86.18 kg, 182.88 cm) jh5 16:31 provider notified of BP. new orders given. em6 ED Course: 15:27 Patient arrived in ED. as 15:27 Mauricio Hair MD is Private Physician. as 15:27 Suresh Kelley DO is Private Physician. as 15:30 Abelino Bowen PA is PHCP. [facility] 15:30 Morales Heaton MD is Attending Physician. [facility] 15:37 Triage completed. [facility] 15:37 Arm band placed on right wrist. 5 15:46 Pema Hamm, RN is Primary Nurse. em6 16:08 XRAY Chest (1 view) In Process Unspecified. EDMS 16:24 Inserted saline lock: 22 gauge in left antecubital area, using aseptic technique. Blood em6 collected. by fredis. 16:27 Bed in low position. Call light in reach. Side rails up X 1. campus wellness coordinator on. Pulse em6 ox on. NIBP on. Warm blanket given. 16:28 SARS RAPID Sent. em6 16:28 Basic Metabolic Panel Sent. em6 16:28 CBC with Diff Sent. em6 16:28 LFT's Sent. em6 16:28 Magnesium Sent. em6 16:29 NT PRO-BNP Sent. em6 16:29 PT-INR Sent. em6 16:29 Troponin HS Sent. em6 16:43 US Extremity Venous W Compression Jake In Process Unspecified. EDMS 17:02 Celso August is Hospitalizing Provider. jmm 21:16 No provider procedures requiring assistance completed. Patient admitted, IV remains in em6 place. Administered Medications: 16:44 Drug: NS 0.9% 250 ml Route: IV; Rate: bolus; Site: left antecubital; em6 17:30 Follow up: Response: No adverse reaction; IV Status: Completed infusion; IV Intake: em6 250ml Medication: 21:18 VIS not applicable for this client. em6 Intake: 17:30 IV: 250ml; Total: 250ml. em6 Outcome: 17:04 Decision to Hospitalize by Provider. jmm 21:17 Admitted to Med/surg accompanied by tech, via wheelchair, room 202, with chart, Report em6 called to mariela rn 21:17 Condition: stable 21:18 Patient left the ED. em6 Signatures: Dispatcher [employer] EDMS Abelino Bowen PA PA jmm Martinez, Amelia as Rees, Jessica, RN RN jh5 Pema Hamm, BRO RN em6 Corrections: (The following items were deleted from the chart) 16:46 16:27 Humpty Dumpty Scale Fall Assessment Tool (age< 18yrs) Age 13 years and above (1 em6 pt) Gender Male (2 pts) Diagnosis Other diagnosis (1 pt) Cognitive Impairments Oriented to own ability (1 pt) Environmental Factors Patient placed in bed (2 pts) Medication Usage Other medications/ None (1 pt) Fall Risk Score/ Level Low Fall Risk: </= 11 points Oriented to surroundings, Maintained a safe environment: Age specific bed with railing, Bed in low position\T\ wheels locked, Assess need for siderail use, Locks on, Rm \T\ paths clutter \T\ obstacle free, Proper lighting, Call light, personal item w/in reach, Alarms as needed, Educated pt \T\ family on fall prevention, incl. call for assistance when getting out of bed, Assessed \T\ reinforced patient's understanding of fall precautions, Hourly rounding (assess needs \T\ fall precautionary measures) em6 21:18 21:17 Admitted to Med/surg accompanied by tech, via wheelchair, room 203, with chart, em6 Report called to mariela marshall em6
--- NOTE | 2022-10-13 17:05 | EDPHYS ---
Physician Documentation [facility] [place] [place] Name: Manjeet Zhu Age: 77 yrs Sex: Male : 1945 Arrival Date: 10/13/2022 Time: 15:27 Bed 23 Private MD: Suresh Kelley; Mauricio Hair ED Physician Morales Heaton HPI: 10/13 15:41 This 77 yrs old Male presents to ER via Ambulatory with complaints of Leg Swelling, jmm Abdominal Swelling. 15:41 The patient presents with. jmm 16:10 The patient presents with swelling. This is a 77 year old male with a history of cva, jmm hlp, chf, that presents to the ED with complaints of gradually progressing peripheral edema. Patient states the swelling has gone up to his abdomen. Also complains of sob. Denies chest pain. . Historical: - Home Meds: 16:31 levothyroxine oral [Active]; bumetanide 2 mg Oral tab [Active]; Entresto 49-51 mg oral em6 tab [Active]; atorvastatin oral [Active]; Xarelto 20 mg oral tab [Active]; zolpidem 10 mg Oral tab [Active]; - PMHx: 15:37 CVA; High Cholesterol; Hypertension; Myocardial infarction; jh5 - Immunization history:: Adult Immunizations up to date. - Social history:: Smoking status: Patient denies any tobacco usage or history of. ROS: 16:10 Constitutional: Negative for fever, chills, and weight loss, Cardiovascular: Negative jmm for chest pain, palpitations, and edema. 16:10 Constitutional: Positive for 16:10 Respiratory: Positive for shortness of breath. 16:10 MS/extremity: Positive for swelling. 16:10 All other systems are negative. Exam: 16:10 Constitutional: This is a well developed, well nourished patient who is awake, alert, jmm and in no acute distress. Head/Face: atraumatic. Eyes: EOMI, no conjunctival erythema appreciated ENT: Moist Mucus Membranes Neck: Trachea midline, Supple Chest/axilla: Normal chest wall appearance and motion. Cardiovascular: Regular rate and rhythm. No edema appreciated Respiratory: Normal respirations, no respiratory distress appreciated 16:10 Back: Normal ROM Skin: General appearance color normal 16:10 Abdomen/GI: Inspection: distension, that is mild, Palpation: soft, nontender, in all quadrants. 16:10 Musculoskeletal/extremity: peripheral edema noted bilaterally, compartments are soft, full dorsalis pulse, nvi. 16:10 Skin: Appearance: Color: normal in color. 16:10 Neuro: Motor: is normal. 16:10 Psych: Behavior/mood is pleasant, cooperative. Vital Signs: 15:34 BP 82 / 72; Pulse 89; Resp 20; Temp 98.8; Pulse Ox 100% ; Weight 86.18 kg; Height 6 ft. jh5 0 in. (182.88 cm); Pain 0/10; 15:34 BP 81 / 61; jh5 16:31 BP 85 / 66; Pulse 71; Resp 16; Pulse Ox 99% on R/A; em6 17:26 BP 86 / 73; Pulse 86; Resp 18; Pulse Ox 100% on R/A; em6 18:30 BP 93 / 70; Pulse 81; Resp 14; Pulse Ox 98% on R/A; em6 15:34 Body Mass Index 25.77 (86.18 kg, 182.88 cm) jh5 16:31 provider notified of BP. new orders given. em6 MDM: 15:41 Patient medically screened. [facility] 17:01 Data reviewed: vital signs, nurses notes. Counseling: I had a detailed discussion with aubree the patient and/or guardian regarding: the historical points, exam findings, and any diagnostic results supporting the discharge/admit diagnosis, lab results, the need for further work-up and treatment in the hospital. ED course: I discussed the patient with Dr. Hair whom will consult on admission. I discussed the patient with Van whom accepted the patient to Dr. uAgust's service. . 10/13 15:41 Order name: Basic Metabolic Panel; Complete Time: 16:49 [facility] 10/13 15:41 Order name: CBC with Diff; Complete Time: 16:53 [facility] 10/13 15:41 Order name: LFT's; Complete Time: 16:49 [facility] 10/13 15:41 Order name: Magnesium; Complete Time: 16:49 [facility] 10/13 15:41 Order name: NT PRO-BNP; Complete Time: 16:49 [facility] 10/13 15:41 Order name: PT-INR; Complete Time: 16:33 [facility] 10/13 15:41 Order name: Troponin HS; Complete Time: 16:49 [facility] 10/13 15:41 Order name: XRAY Chest (1 view); Complete Time: 16:46 [facility] 10/13 15:41 Order name: EKG; Complete Time: 15:42 [facility] 10/13 15:41 Order name: US Extremity Venous W Compression Jake; Complete Time: 17:04 [facility] 10/13 15:44 Order name: SARS RAPID; Complete Time: 16:43 [facility] 10/13 17:17 Order name: Heart Healthy; Complete Time: 20:21 [facility] 10/13 19:01 Order name: NT PRO-BNP; Complete Time: 19:10 [facility] 10/13 15:41 Order name: Cardiac monitoring; Complete Time: 16:24 [facility] 10/13 15:41 Order name: EKG - Nurse/Tech; Complete Time: 16:24 [facility] 10/13 15:41 Order name: IV Saline Lock; Complete Time: 16:24 [facility] 10/13 15:41 Order name: Labs collected and sent; Complete Time: 16:24 [facility] 10/13 15:41 Order name: O2 Per Protocol; Complete Time: 16:24 [facility] 10/13 15:41 Order name: O2 Sat Monitoring; Complete Time: 16:24 [facility] Administered Medications: 16:44 Drug: NS 0.9% 250 ml Route: IV; Rate: bolus; Site: left antecubital; em6 17:30 Follow up: Response: No adverse reaction; IV Status: Completed infusion; IV Intake: em6 250ml Disposition Summary: 10/13/22 17:04 Hospitalization Ordered Hospitalization Status: Observation [facility] Provider: Celso August Location: Telemetry/MedSurg (observation) [facility] Condition: Stable [facility] Problem: new m Symptoms: are unchanged [facility] Bed/Room Type: Standard [facility] Room Assignment: 202(10/13/22 20:31) eb1 Diagnosis - Generalized edema jmm - Acute on chronic combined systolic (congestive) and diastolic (congestive) heart [facility] failure Forms: - Medication Reconciliation Form [facility] - SBAR form [facility] Signatures: Dispatcher [employer] EDMS Abelino Bowen PA PA jmm Basinger, Emily RN RN eb1 Yomaira Maher RN RN jh5 Pema Hamm RN RN em6 Corrections: (The following items were deleted from the chart) 20:31 17:04 aubree santana
[2022-10-13] MEDS ORDERED: HYDROCODONE/APAP 5/325 MG TAB PO PRN (17:14)
[2022-10-13] MEDS ORDERED: ACETAMINOPHEN 325 MG TABLET PO PRN (17:14)
[2022-10-13] MEDS ORDERED: ONDANSETRON 4 MG/2 ML VIAL IV PRN (17:16)
--- NOTE | 2022-10-13 17:18 | P.HP ---
Certification for Inpatient Patient admitted to: Inpatient With expected LOS: >2 Midnights Patient will require the following post-hospital care: None Practitioner: I am a practitioner with admitting privileges, knowledge of patient current condition, hospital course, and medical plan of care. Services: Services provided to patient in accordance with Admission requirements found in Title 42 Section 412.3 of the Code of Federal Regulations Patient History Date of Service: 10/13/22 Reason for admission: Generalized edema and sob History of Present Illness: Patient is a 77-year-old male with a past medical history significant for CVA, hypertension, HLD, [place], hypothyroidism, CHF who presents with complaint of generalized edema and shortness of breath that has been ongoing for the past 2 weeks. Patient reported associated signs and symptoms of nausea, cough and orthopnea. Patient indicated that symptoms are aggravated by exertion and rel ieved by nothing. Patient denies any other signs and symptoms. Patient decided to present to the hospital due to worsening symptoms. Allergies No Known Allergies Allergy (Unverified 03/02/18 15:10) Home Medications: Atorvastatin Calcium 1 tab PO DAILY 10/14/22 Bumetanide 2 mg PO DAILY 10/14/22 Sacubitril/Valsartan [Entresto 49 mg-51 mg Tablet] 1 tab PO BID 10/14/22 Zolpidem Tartrate 1 tab PO SEECOM 10/14/22 - Past Medical/Surgical History -: CHF -: Insomnia -: HLD Past Surgical History: Reviewed- Non-Contributory - Family History Family History: Reviewed- Non-Contributory - Social History Smoking Status: Unknown if ever smoked Alcohol use: No CD- Drugs: No Caffeine use: Yes Place of Residence: Home Review of Systems General: Unremarkable Eyes: Unremarkable ENT: Unremarkable Respiratory: Cough, Shortness of Breath, SOB with Excertion Cardiovascular: Orthopnea Gastrointestinal: Nausea Genitourinary: Unremarkable Musculoskeletal: Unremarkable Integumentary: Unremarkable Neurological: Unremarkable Lymphatics: Unremarkable Physical Examination - Physical Exam General: Alert, In no apparent distress, Oriented x3, Cooperative HEENT: Atraumatic, PERRLA, Mucous membr. moist/pink, EOMI, Sclerae nonicteric Neck: Supple, 2+ carotid pulse no bruit, No LAD, Without JVD or thyroid abnormality Respiratory: Normal air movement Cardiovascular: Normal S1 S2, No murmurs, Edema Gastrointestinal: Normal bowel sounds, Distended Musculoskeletal: No tenderness, Swelling Integumentary: No rashes, Tenderness/swelling Neurological: Normal speech, Normal tone, Normal affect Lymphatics: No axilla or inguinal lymphadenopathy - Studies Laboratory Data (last 24 hrs) 10/13/22 16:18: PT 35.4 H, INR 3.22 10/13/22 16:18: WBC 5.40, Hgb 13.0 L, Hct 39.2 L, Plt Count 139 L 10/13/22 16:18: Sodium 136, Potassium 3.8, BUN 65 H, Creatinine 2.64 H, Glucose 88, Magnesium 2.6 H, Total Bilirubin 2.2 H, AST 63 H, ALT 77 H, Alkaline Phosphatase 136 H Assessment and Plan - Plan --Acute on chronic systolic or diastolic CHF exacerbation. Echocardiogram to assess cardiac structures and function. Cardiology consulted. Patient hypotensive. Will defer diuresis management to parts counter clerk. Will await further recommendation from parts counter clerk. --Hypertension. Patient currently hypotensive. Will hold off on BP meds.We will continue to monitor BP levels --Generalized edema. Worse on bilateral lower extremities. Doppler ultrasound negative for DVT. Continue diuresis management per parts counter clerk. --Hyperlipidemia. Continue statin. --Insomnia. Continue home medication. --Hypothyroidism. Continue home medication --Anemia of chronic disease. H&H stable. We will continue to monitor hemoglobin and transfuse if less than 7.0. --CKD 4. Worsening renal functions. Nephrology consulted. We will continue to monitor renal functions and await further recommendations. --DVT prophylaxis with heparin subQ Discharge Plan: Home Plan to discharge in: Greater than 2 days - Advance Directives Does patient have a Living Will: No Does patient have a Durable POA for Healthcare: No - Code Status/Comfort Care Code Status Assessed: Yes Physician Review: Patient Assessed, Agree with Above Assessment and Plan Critical Care: No
[2022-10-13] MEDS: HEPARIN 5000 UNIT/ML 1 ML VIAL SQ SCH (21:00)
[2022-10-13] MEDS ORDERED: HEPARIN 5000 UNIT/ML 1 ML VIAL ONE (21:05)
[2022-10-14 06:26] LABS: Absolute Lymphocytes (CBC) 1.5 K/uL (0.7-4.9); Hematocrit 38.7 % (39.6-49.0); Lymphocytes % 30.2 % (15.3-44.8); MCV 96.4 fL (80-100); MPV 10.2 fL (7.6-11.3); RBC Red Blood Cell Count 4.02 M/uL (4.33-5.43)
[2022-10-14 06:42] LABS: Potassium 3.9 mmol/L (3.5-5.1)
--- NOTE | 2022-10-14 08:03 | EKG ---
Test Date: 2022-10-13 Test Time: 15:57:21 Police Commissioner: MEASUREMENT RESULTS: Intervals: Rate: 85 NH: 122 QRSD: 202 QT: 504 QTc: 599 [place]: P: 90 NH: 122 QRS: 108 T: -58 INTERPRETIVE STATEMENTS: Atrial-sensed ventricular-paced rhythm with occasional premature ventricular complexes Abnormal ECG Compared to ECG 03/02/2018 13:53:46 Ventricular premature complex(es) now present Sinus bradycardia no longer present Atrial premature complex(es) no longer present ST (T wave) deviation no longer present Electronically Signed On 10-14-22 08:01:46 TREE CUTTER by Jude Vogt
[2022-10-14] MEDS: HEPARIN 5000 UNIT/ML 1 ML VIAL SQ SCH ×2 (09:12→20:34)
[2022-10-14] MEDS: ATORVASTATIN 20 MG TAB PO SCH (09:12)
[2022-10-14] MEDS: ASPIRIN 81 MG CHEWABLE TABLET PO SCH (09:12)
[2022-10-14 10:11] LABS: Magnesium 2.7 mg/dL (1.6-2.4); Phosphorus 3.3 mg/dL (2.5-4.9)
--- NOTE | 2022-10-14 10:45 | P.CNS ---
Date of Consult: 10/14/22 Reason for Consult: AMY Requesting Physician: krystyna kwan Chief Complaint: Generalized edema and sob History of Present Illness: Patient is a 77-year-old male with a past medical history significant for CVA, hypertension, HLD, [place], hypothyroidism, CHF who presents with complaint of generalized edema and shortness of breath that has been ongoing for the past 2 weeks. Patient reported associated signs and symptoms of nausea, cough and orthopnea. Patient indicated that symptoms are aggravated by exertion and relieved by nothing. Patient denies any other signs and symptoms. Patient decided to present to the hospital due to worsening symptoms. 15:41 This 77 yrs old Male presents to ER via Ambulatory with complaints of Leg Swelling, jmm Abdominal Swelling. 15:41 The patient presents with. jmm 16:10 The patient presents with swelling. This is a 77 year old male with a history of cva, jmm hlp, chf, that presents to the ED with complaints of gradually progressing peripheral edema. Patient states the swelling has gone up to his abdomen. Also complains of sob. Denies chest pain. Allergies No Known Allergies Allergy (Unverified 03/02/18 15:10) Home medications list reviewed: Yes Home Medications: Atorvastatin Calcium 1 tab PO DAILY 10/14/22 Bumetanide 2 mg PO DAILY 10/14/22 Sacubitril/Valsartan [Entresto 49 mg-51 mg Tablet] 1 tab PO BID 10/14/22 Zolpidem Tartrate 1 tab PO SEECOM 10/14/22 - Past Medical/Surgical History Diabetic: No -: CHF -: Insomnia -: HLD -: CKD (Dr. Kelley) - Social History Alcohol use: No CD- Drugs: No Caffeine use: Yes Place of Residence: Home Review of Systems 10-point ROS is otherwise unremarkable Respiratory: SOB with Excertion Cardiovascular: Edema Physical Examination Temp Pulse Resp BP Pulse Ox 97.0 F 69 14 86/60 L 97 10/14/22 08:00 10/14/22 08:00 10/14/22 08:00 10/14/22 08:00 10/14/22 08:00 General: Oriented x3, Cooperative HEENT: Atraumatic Neck: Supple Respiratory: Diminished Cardiovascular: Regular rate/rhythm, Edema Gastrointestinal: Soft and benign, Non-distended Musculoskeletal: No clubbing, No contractures Integumentary: No rashes, No cyanosis Neurological: Normal speech Laboratory Data (last 24 hrs) 10/13/22 16:18: PT 35.4 H, INR 3.22 10/13/22 16:18: WBC 5.40, Hgb 13.0 L, Hct 39.2 L, Plt Count 139 L 10/13/22 16:18: Sodium 136, Potassium 3.8, BUN 65 H, Creatinine 2.64 H, Glucose 88, Magnesium 2.6 H, Total Bilirubin 2.2 H, AST 63 H, ALT 77 H, Alkaline Phosphatase 136 H Imagings Data: EXAM DESCRIPTION: RADChest Single View10/13/2022 4:07 pm CLINICAL HISTORY: Chest pain COMPARISON: 2020 FINDINGS: Mild bilateral pulmonary opacities Heart is moderately to markedly enlarged. There may be small pleural effusions IMPRESSION: Mild CHF EXAM DESCRIPTION: USExtrem Venous W Compress Bil10/13/2022 4:41 pm CLINICAL HISTORY: Leg swelling COMPARISON: none FINDINGS: The common femoral, superficial femoral, popliteal and posterior tibial veins bilaterally are compressible and demonstrate augmentation. Doppler demonstrates good flow. Grayscale, color and spectral analysis performed on all vessels IMPRESSION: No evidence of deep venous thrombosis involving either lower extremity. Conclusions/Impression: Stage I AMY in the setting of hypotension & CRS CKD IIIb -No NSAIDs -Continue diuresis as tolerated Hypervolemic Hyponatremia -Continue Lasix Chronic hypotension -Consider midodrine Systolic CHF, A/C -Low sodium diet -Lasix gtt Anemia in chronic illness Thrombocytopenia -Monitor CBC Case reviewed with Dr. Kwan Thank you kindly for the consultation
[2022-10-14] MEDS: FUROSEMIDE 100 MG in NA CHLORIDE 0.9% 90 ML IV SCH ×2 (11:00→20:35)
--- NOTE | 2022-10-14 12:26 | P.PN ---
Subjective Date of Service: 10/14/22 Chief Complaint: Generalized edema and sob Patient is complaining of generalized swelling, abdominal distention and fullness. He denies shortness of breath. Physical Examination - Vital Signs Temperature: 97.0 F Blood Pressure: 86/60 Pulse: 69 Respirations: 14 Pulse Ox (%): 97 - Studies Laboratory Data (last 24 hrs) 10/13/22 16:18: PT 35.4 H, INR 3.22 10/13/22 16:18: WBC 5.40, Hgb 13.0 L, Hct 39.2 L, Plt Count 139 L 10/13/22 16:18: Sodium 136, Potassium 3.8, BUN 65 H, Creatinine 2.64 H, Glucose 88, Magnesium 2.6 H, Total Bilirubin 2.2 H, AST 63 H, ALT 77 H, Alkaline Phosphatase 136 H Assessment And Plan - Current Problems (Diagnosis) (1) Acute on chronic systolic heart failure Current Visit: Yes Status: Acute (2) Chronic kidney disease, stage IV (severe) Current Visit: Yes Status: Acute (3) Anasarca Current Visit: Yes Status: Acute (4) Hypotension Current Visit: Yes Status: Acute - Plan Physical Exam General: Alert, In no apparent distress, Oriented x3. Neck: Supple, no elevated JVD. Respiratory: Normal air movement, clear to auscultation bilaterally. Cardiovascular: Normal S1 S2, No murmurs, 3+ bilateral lower extremity edema Gastrointestinal: Normal bowel sounds, Distended, ascites/ Musculoskeletal: No tenderness, Swelling Integumentary: No rashes, Tenderness/swelling Neurological: Normal speech, Normal tone, Normal affect Plan: Patient with refractory anasarca not responding to outpatient treatment with oral bumetanide. Low blood pressure limits Lasix IV boluses for treatment of the anasarca. Case discussed with nephrology Dr. Kelley. Start IV Lasix drip. Monitor renal function, magnesium and phosphate closely and replete electrolytes as needed. Daily weight. Fluid restriction. Monitor blood pressure closely on Lasix drip given history of hypotension. Patient may also need intermittent IV albumin infusion and midodrine as needed. Nephrology to follow
[2022-10-14] MEDS: ZOLPIDEM TARTRATE 10 MG TABLET PO PRN (20:34)
[2022-10-15] MEDS: FUROSEMIDE 100 MG in NA CHLORIDE 0.9% 90 ML IV SCH ×2 (06:00→17:01)
[2022-10-15 06:36] LABS: Albumin 3.3 g/dL (3.4-5.0); Phosphorus 3.6 mg/dL (2.5-4.9); Potassium 3.8 mmol/L (3.5-5.1)
--- NOTE | 2022-10-15 07:02 | ECHO ---
HEIGHT: 0 ft 6 in WEIGHT: 193 lb 9.6 oz DATE OF STUDY: 10/14/[address]: Magnolia Tello 2-DIMENSIONAL: YES M.MODE: YES DOPPLER: YES COLOR FLOW: YES TDS: PORTABLE: YES DEFINITY: BUBBLE STUDY: DIAGNOSIS: CONGESTIVE HEART FAILURE CARDIAC HISTORY: CATHERIZATION: SURGERY: PROSTHETIC VALVE: PACEMAKER: MEASUREMENTS (cm) DIASTOLIC (NORMALS) SYSTOLIC (NORMALS) IVSd 1.4 (0.6-1.2) LA Diam 5.4 (1.9-4.0) LVEF 18% LVIDd 6.6 (3.5-5.7) LVIDs 6.0 (2.0-3.5) %FS 9% LVPWd 1.5 (0.6-1.2) Ao Diam 2.7 (2.0-3.7) 2 DIMENSIONAL ASSESSMENT: RIGHT ATRIUM: NORMAL LEFT ATRIUM: ENLARGED RIGHT VENTRICLE: NORMAL LEFT VENTRICLE: DILATED LEFT VENTRICLE TRICUSPID VALVE: SEVERE TRICUSPID REGURGITATION MITRAL VALVE: SEVERE MITRAL REGURGITATION PULMONIC VALVE: NORMAL AORTIC VALVE: MODERATE AORTIC INSUFFICIENCY PERICARDIAL EFFUSION: NONE AORTIC ROOT: NORMAL LEFT VENTRICULAR WALL MOTION: SEVERE GLOBAL HYPOKINESIS DOPPLER/COLOR FLOW: SEE BELOW COMMENTS: 1. SEVERELY DEPRESSED LEFT VENTRICULAR EJECTION FRACTION 15-20% 2. SEVERE GLOBAL HYPOKINESIS 3. SEVERE MITRAL REGURGITATION 4. SEVERE TRICUSPID REGURGITATION 5. MODERATE AORTIC INSUFFICIENCY 6. LEFT ATRIAL ENLARGEMENT TECHNOLOGIST: MICHAEL MORLEY
[2022-10-15] MEDS: ASPIRIN 81 MG CHEWABLE TABLET PO SCH (08:26)
[2022-10-15] MEDS: HEPARIN 5000 UNIT/ML 1 ML VIAL SQ SCH ×2 (08:26→20:55)
[2022-10-15] MEDS: POTASSIUM CL SA 10 MEQ TAB PO SCH (08:26)
[2022-10-15] MEDS: ATORVASTATIN 20 MG TAB PO SCH (08:26)
[2022-10-15 09:38] LABS: Magnesium 2.7 mg/dL (1.6-2.4); Phosphorus 3.5 mg/dL (2.5-4.9)
--- NOTE | 2022-10-15 11:49 | P.PN ---
Subjective Date of Service: 10/15/22 Chief Complaint: Generalized edema and sob Patient has no new complaints. He is diuresing well with IV Lasix. Leg swelling and abdominal distention are improving. He denies shortness of breath. Physical Examination - Vital Signs Temperature: 97.8 F Blood Pressure: 84/69 Pulse: 84 Respirations: 14 Pulse Ox (%): 97 Assessment And Plan - Current Problems (Diagnosis) (1) Acute on chronic systolic heart failure Current Visit: Yes Status: Acute (2) Chronic kidney disease, stage IV (severe) Current Visit: Yes Status: Acute (3) Anasarca Current Visit: Yes Status: Acute (4) Hypotension Current Visit: Yes Status: Acute - Plan Physical Exam General: Alert, In no apparent distress, Oriented x3. Neck: Supple, no elevated JVD. Respiratory: Normal air movement, clear to auscultation bilaterally. Cardiovascular: Normal S1 S2, No murmurs, 3+ bilateral lower extremity edema Gastrointestinal: Normal bowel sounds, Distended, ascites/ Musculoskeletal: No tenderness, Swelling Integumentary: No rashes, Tenderness/swelling Neurological: No focal motor deficit Plan: Patient lower extremity edema and ascites are improving with IV Lasix. BP has been running low with systolic in the 80s Continue IV Lasix Nephrology Dr. Kelley is following Serum creatinine has been stable on the Lasix drip Monitor renal function, magnesium and phosphate closely and replete electrolytes as needed. Daily weight. Monitor blood pressure closely on Lasix drip given history of hypotension. Patient may also need intermittent IV albumin infusion and midodrine as needed. Activity as tolerated.
--- NOTE | 2022-10-15 13:51 | P.PN ---
Nephrology note: (S) Pt remains on lasix drip, pt seen lying in bed, he's a bit lethargic, he reports not sleeping much but denies that it is due to orthopnea or PND. Case discussed with Dr. August General: Oriented x3, Cooperative HEENT: Atraumatic, sclera anicteric Neck: Supple Respiratory: Diminished, non tachypnec Cardiovascular: Regular rate/rhythm mostly, peripheral Edema Gastrointestinal: Soft , NT Musculoskeletal: No clubbing, No contractures Integumentary: No rashes, No cyanosis Neurological: awake, alert, responsive Laboratory Data (last 24 hrs) Reviewed in the EMR Conclusions/Impression: Stage II AMY in the setting of hypotension & CRS Underlying CKD III unspecified -Monitor closely with diuretic escalation, unable to tolerate Entresto or LIN inhibitors at this time. Severe cardiomyopathy unspecified. Acute on chronic systolic CHF. Volume overload. Peripheral edema. Cardiogenic acute pulm edema -Will monitor response on lasix drip. Defer to Cardiology to consider Dobutamine or Milrinone if pt not responding or diuresing effectively and MAPs remain low Hypotension, other In the setting of severe cardiomyopathy, will try adding Midodrine for now although if ionotropes are used will d/c to prevent any HTN Dawson Dunn MD, [facility]
[2022-10-15] MEDS: MIDODRINE HCL 5 MG TABLET PO SCH ×2 (14:05→20:53)
[2022-10-15 18:04] VITALS: BMI 26.2
--- NOTE | 2022-10-15 19:10 | PN ---
Date of Progress Note: 10/15/2022 Subjective: Seen by bedside, feeling slightly better. BUN and creatinine have been improving slowly with diuresis. Review of Systems: Positive for shortness of breath, orthopnea, lower extremity edema. No chest pain. No nausea, vomit ing, diarrhea. All other systems reviewed and they are negative. Physical Examination: Vital Signs: Reviewed. Head and Neck: Pupils are equal, reactive to light. Intact eye movements. Positive JVD. No cervic al lymphadenopathy. Neck: Supple. Thyroid is not enlarged. Lungs: Breathing sounds are positive bilaterally with crackles in both bases. No accessory muscle u se or muscle retraction. Heart: Regular. No extra sounds. Abdomen: Soft, nontender. Bowel sounds positive. No organomegaly. No masses or hernia. No tender ness or rebound. Extremities: 2 to 3+ pitting edema. No clubbing, cyanosis. Intact pulses. Skin: No rashes. Neurologic: Alert, awake, oriented x3. No acute or focal deficits appreciated. Investigations: BUN 65, creatinine 2.48. Assessment/recommendation: 1.Acute on chronic systolic heart failure exacerbation. The patient needs aggressive diuresis. Cur rently on Lasix drip at 10 mg/hour. Continue current management and monitor potassium and replace as needed. Low-salt diet and less than 1500 cc of fluid today. Closely monitor the body weight and ur ine output and fluid intake. 2.Acute on chronic renal failure, slightly higher than his baseline. It is improving with diuresis. This is due to acute heart failure exacerbation. SR/MODL Voice ID: [id number] Report ID: [id number]
[2022-10-15] MEDS: FLUTICASONE 50MCG NASAL SPRAY NAS SCH (20:53)
[2022-10-15] MEDS: ZOLPIDEM TARTRATE 10 MG TABLET PO PRN (20:53)
[2022-10-16] MEDS: FUROSEMIDE 100 MG in NA CHLORIDE 0.9% 90 ML IV SCH ×3 (02:30→22:26)
[2022-10-16] MEDS: MIDODRINE HCL 5 MG TABLET PO SCH ×3 (05:52→21:03)
[2022-10-16 06:35] LABS: Albumin 3.2 g/dL (3.4-5.0); Phosphorus 4.1 mg/dL (2.5-4.9); Potassium 4.1 mmol/L (3.5-5.1)
[2022-10-16] MEDS: ATORVASTATIN 20 MG TAB PO SCH (08:10)
[2022-10-16] MEDS: POTASSIUM CL SA 10 MEQ TAB PO SCH (08:10)
[2022-10-16] MEDS: ASPIRIN 81 MG CHEWABLE TABLET PO SCH (08:10)
[2022-10-16] MEDS: FLUTICASONE 50MCG NASAL SPRAY NAS SCH ×2 (08:11→21:03)
[2022-10-16] MEDS: HEPARIN 5000 UNIT/ML 1 ML VIAL SQ SCH ×2 (08:11→21:03)
[2022-10-16 09:50] LABS: Magnesium 2.8 mg/dL (1.6-2.4); Phosphorus 4.2 mg/dL (2.5-4.9)
--- NOTE | 2022-10-16 11:50 | P.PN ---
Subjective Date of Service: 10/16/22 Chief Complaint: Generalized edema and sob Patient has no new complaints. His leg edema and abdominal distention have significantly improved. He has intermittent hypotension. He denies shortness of breath. Physical Examination - Vital Signs Temperature: 97.7 F Blood Pressure: 100/69 Pulse: 68 Respirations: 18 Pulse Ox (%): 97 Assessment And Plan - Current Problems (Diagnosis) (1) Acute on chronic systolic heart failure Current Visit: Yes Status: Acute (2) Chronic kidney disease, stage IV (severe) Current Visit: Yes Status: Acute (3) Anasarca Current Visit: Yes Status: Acute (4) Hypotension Current Visit: Yes Status: Acute - Plan Physical Exam General: Alert, In no apparent distress, Oriented x3. Neck: Supple, no elevated JVD. Respiratory: Normal air movement, clear to auscultation bilaterally. Cardiovascular: Normal S1 S2, No murmurs, 3+ bilateral lower extremity edema Gastrointestinal: Normal bowel sounds, Distended, ascites/ Musculoskeletal: No tenderness, Swelling Integumentary: No rashes, Tenderness/swelling Neurological: No focal motor deficit Plan: Patient lower extremity edema and ascites have significantly improved with IV Lasix. Patient with intermittent hypotension. Continue IV Lasix Nephrology started him on midodrine. Serum creatinine has been stable on the Lasix drip Monitor renal function, magnesium and phosphate closely and replete electrolytes as needed. Daily weight. Monitor blood pressure closely on Lasix drip given history of hypotension. Patient may also need intermittent IV albumin infusion for hypotension. Activity as tolerated.
--- NOTE | 2022-10-16 14:57 | PN ---
Subjective: Patient is seen and evaluated in room 202. Patient is alert, awake, and looks comfortab le. Did sleep a little bit better last night. Breathing seems to be somewhat improved. Still on La six drip. Has been having some good diuresis. Has had good response with his swelling improving and breathing improving. Patient does understand what is going on. He is currently on Lasix drip. His blood pressures were running slightly on the lower side and was started on low-dose midodrine 3 time s a day from Dr. Dunn. Dr. Hair, Cardiology, is also following. Blood pressures are somewhat sta bilized. Currently on Lasix drip and remained stable. Objective: Vital Signs/General: Stable, reviewed. Patient's blood pressure is somewhat improved in the low 100s to high 90 range compared to 70s and 80s yesterday. He is alert, awake and able to ans wer all questions comfortably. He is afebrile. His pulse is around 70-80 and regular. His respirat ion rates about 14 and comfortable. Lungs: Clear anteriorly with decreased breath sounds at the bases. Abdomen: Soft. Extremities: Still reveal significant edema with positive 2 bilaterally. Laboratory Data: Reviewed. Assessment And Plan: Patient with acute kidney injury/chronic kidney disease, currently stabilizing. Creatinine has been stable. Patient has been diuresing reasonably well. Blood pressure is somewha t stable after midodrine has been added, but still on the lower side. Appreciate Cardiology assessme nt and recommendations. Continue Lasix drip and consider transiting to intermittent Lasix in the gary r future as tolerated and as advised by Dr. Hair from Cardiology as well when patient is ready. Co ntinue with low-dose midodrine and assess blood pressure and monitor. May need to cut back on diures is if blood pressure continues to drop despite midodrine. Patient clinically does seem to be stabiliz ing. He is going to need some activity/physical therapy perhaps outpatient. Has been advised to fol low up with his physicians outpatient to assess the need for that and also to make sure that his bloo d pressure is being monitored at home closely and his medications are adjusted closely. He has advan wilner relatively advanced kidney disease, perhaps now in stage IV range. He would need for that to be assessed once his acute issues are resolved. He knows to follow up with Dr. Kelley, his primary nep hrologist, as soon as he is discharged so that medications can then be reviewed and further recommend ations can be made to treat the residual renal function at that point. /LYUDMILA Voice ID: [id number] Report ID: [id number]
[2022-10-16] MEDS: ZOLPIDEM TARTRATE 10 MG TABLET PO PRN (21:09)
[2022-10-17 06:28] LABS: Albumin 3.2 g/dL (3.4-5.0); Phosphorus 3.9 mg/dL (2.5-4.9)
[2022-10-17] MEDS: FUROSEMIDE 100 MG in NA CHLORIDE 0.9% 90 ML IV SCH ×2 (08:00→18:00)
[2022-10-17] MEDS: POTASSIUM CL SA 10 MEQ TAB PO SCH (08:36)
[2022-10-17] MEDS: MIDODRINE HCL 5 MG TABLET PO SCH ×3 (08:36→20:56)
[2022-10-17] MEDS: ATORVASTATIN 20 MG TAB PO SCH (08:37)
[2022-10-17] MEDS: ASPIRIN 81 MG CHEWABLE TABLET PO SCH (08:38)
[2022-10-17] MEDS: HEPARIN 5000 UNIT/ML 1 ML VIAL SQ SCH ×2 (08:38→20:00)
[2022-10-17] MEDS: FLUTICASONE 50MCG NASAL SPRAY NAS SCH ×2 (08:41→20:00)
--- NOTE | 2022-10-17 11:58 | RAD REPORT ---
EXAM DESCRIPTION: CT - Abdomen Pelvis Wo Contrast - 10/17/2022 11:39 am CLINICAL HISTORY: Abdominal pain COMPARISON: Chest Single View dated 10/13/2022 TECHNIQUE: Axial [address] imaging of the abdomen and pelvis was performed without IV contrast. No IV contrast was given because of allergy, abnormal renal function, patient refusal or physician re quest. No oral contrast given. All CT scans are performed using dose optimization technique as appropriate and may include automated exposure control or mA/KV adjustment according to patient size. FINDINGS: Small right pleural effusion is present. Atelectasis is present in the posterior gutter on the right. Patient has pronounced cardiomegaly without pericardial thickening or effusion. Pacemaker is in place. No focal liver lesions seen on noncontrast imaging. Liver size since prominent pus-like capsule nodul arity. No primary pancreatic or splenic abnormality seen. No gallbladder or biliary tree abnormality seen. Gallstones can be occult. No hydronephrosis or obstructing calculi. Renal cysts are present. Lateral mid left kidney shows a cl uster of multiple cysts. Cyst detail is limited in the absence of contrast. No worrisome solid mass i s not suspected. No significant adrenal finding. Isodense renal masses and pyelonephritis cannot be excluded in the absence of IV contrast. Mostly contracted urinary bladder shows no suspicious finding . No gastric dilatation gastric wall thickening. Hyperdensities within the lumen of the stomach are pro bably ingested medications. No surgical history of clip placement. Small bowel and colon are normal i n size. Mucosal level inflammatory changes can be occult to CT imaging. No free air or pneumatosis. Small amount of ascites is present. There is fluid retention in the subc utaneous fatty tissues. No mass or bulky lymphadenopathy. Small fat filled inguinal hernias are prese nt. No suspicious bony findings. IMPRESSION: Failure pattern with pronounced cardiomegaly, pleural effusion, small amount of ascites and retained fluid in the subcutaneous fatty tissues. No obstruction, free air or surgically emergent finding. Detail is limited by motion and absence contrast. Additional nonacute findings detailed in the body o f the report. Full assessment is limited is the absence of IV contrast.
--- NOTE | 2022-10-17 12:40 | P.PN ---
Subjective Date of Service: 10/17/22 Chief Complaint: Generalized edema and sob Patient pulled out his IV line and wanted to sign out AMA this morning but later experienced nausea and abdominal discomfort, and then decided to stay. His leg edema and abdominal distention have significantly improved. He has intermittent hypotension. Physical Examination - Vital Signs Temperature: 97.1 F Blood Pressure: 90/66 Pulse: 88 Respirations: 18 Pulse Ox (%): 99 Assessment And Plan - Current Problems (Diagnosis) (1) Acute on chronic systolic heart failure Current Visit: Yes Status: Acute (2) Chronic kidney disease, stage IV (severe) Current Visit: Yes Status: Acute (3) Anasarca Current Visit: Yes Status: Acute (4) Hypotension Current Visit: Yes Status: Acute - Plan Physical Exam General: Alert, In no apparent distress, Oriented x3. Neck: Supple, no elevated JVD. Respiratory: Normal air movement, clear to auscultation bilaterally. Cardiovascular: Normal S1 S2, No murmurs, 3+ bilateral lower extremity edema Gastrointestinal: Normal bowel sounds, Distended, ascites/ Musculoskeletal: No tenderness, Swelling Integumentary: No rashes, Tenderness/swelling Neurological: No focal motor deficit Plan: Patient lower extremity edema and ascites have significantly improved with IV Lasix but still with significant edema by CT. Patient pulled out his IV line. Patient with intermittent hypotension. Start Bumex at 2 mg twice daily Nephrology started him on midodrine. Continue midodrine Serum creatinine has been stable on the Lasix drip Monitor renal function, magnesium and phosphate closely and replete electrolytes as needed. Daily weight. Monitor blood pressure closely on Lasix drip given history of hypotension. Patient may also need intermittent IV albumin infusion for hypotension. Activity as tolerated. CT abdomen shows no acute disease to explain patient's nausea. Supportive measures with antiemetics.
[2022-10-17] MEDS: BUMETANIDE 1 MG TABLET PO SCH ×2 (13:00→20:00)
[2022-10-17 13:17] LABS: Magnesium 2.9 mg/dL (1.6-2.4); Phosphorus 3.8 mg/dL (2.5-4.9)
--- NOTE | 2022-10-17 15:35 | PN ---
Date of Progress Note: 10/17/2022 Subjective: Seen by bedside. Clinically, he is doing better. Still has lower extremity edema and s hortness of breath on exertion. Review of Systems: No chest pain. He has shortness of breath on exertion. No orthopnea. Has mild lower extremity jeny a. No nausea, vomiting, diarrhea. No abdominal pain. No dysuria, polyuria, or urinary urgency. Al l other systems reviewed are negative. Physical Examination: Vital Signs: Temperature is 97.1, pulse 88, breathing at 18, blood pressure 90/66, saturating 99%. General: This is an elderly male, no apparent distress. Head and Neck: Pupils are equal, reactive to light. Intact eye movements. No JVD. No cervical lym phadenopathy. Neck is supple. Thyroid is not enlarged. Lungs: Clear to auscultation bilaterally. No rhonchi, wheezing, or crackles. No accessory muscle u se. Heart: Irregular. No extra sounds. Abdomen: Soft, nontender. Bowel sounds positive. No organomegaly. No masses or hernia. No rigidi ty or rebound. Extremities: Edema bilaterally. No clubbing or cyanosis. Intact pulses. Skin: No rash. Neurologic: Alert, awake, oriented x3. No acute focal deficits appreciated. Investigations: BUN 67 and creatinine is 2.60. Assessment And Recommendations: 1.Acute on chronic systolic heart failure exacerbation. Has difficulty diuresing this patient due t o the fact of poor kidney function. He appears to be doing much better; however, his BUN and creatin ine are going up. Explained to the patient that his kidney dysfunction is due to cardiorenal syndrom e and likely he will require dialysis down the road as the kidney disease is advanced. Carefully mon itor diuretics due to low blood pressure and the rise in BUN creatinine. I will place it on hold for now and reassess tomorrow morning. 2.Acute on chronic renal failure, cardiorenal syndrome. The patient is still slightly fluid overloa ded; however, he is hypotensive and kidney function is worsening. Recommend Nephrology followup, pos sible planning a future dialysis on him. SR/MODL Voice ID: [id number] Report ID: [id number]
[2022-10-18] MEDS: FUROSEMIDE 100 MG in NA CHLORIDE 0.9% 90 ML IV SCH ×2 (04:00→13:10)
[2022-10-18 04:01] LABS: Albumin 3.1 g/dL (3.4-5.0); Phosphorus 3.6 mg/dL (2.5-4.9)
[2022-10-18 04:05] LABS: Potassium 4.7 mmol/L (3.5-5.1)
[2022-10-18] MEDS: BUMETANIDE 1 MG TABLET PO SCH ×2 (08:03→10:57)
[2022-10-18] MEDS: FLUTICASONE 50MCG NASAL SPRAY NAS SCH (08:03)
[2022-10-18] MEDS: MIDODRINE HCL 5 MG TABLET PO SCH ×2 (08:39→12:40)
[2022-10-18] MEDS: ATORVASTATIN 20 MG TAB PO SCH (08:39)
[2022-10-18] MEDS: ASPIRIN 81 MG CHEWABLE TABLET PO SCH (08:39)
[2022-10-18] MEDS: POTASSIUM CL SA 10 MEQ TAB PO SCH (08:39)
[2022-10-18] MEDS: HEPARIN 5000 UNIT/ML 1 ML VIAL SQ SCH (08:40)
[2022-10-18 15:08] VITALS: O2SAT 97
[2022-10-18 15:51] VITALS: BP 82/60; TEMP 97.3
--- NOTE | 2022-10-18 17:20 | P.DS ---
Admission Date: 10/14/22 Discharge Date: 10/18/22 Disposition: ROUTINE DISCHARGE Discharge Condition: FAIR Reason for Admission: Generalized edema and sob - Problems (1) Acute on chronic systolic heart failure Current Visit: Yes Status: Acute (2) Chronic kidney disease, stage IV (severe) Current Visit: Yes Status: Acute (3) Anasarca Current Visit: Yes Status: Acute (4) Hypotension Current Visit: Yes Status: Acute Brief History of Present Illness: Patient is a 77-year-old male with a past medical history significant for CVA, hypertension, HLD, [place], hypothyroidism, CHF who presented with complaint of generalized edema and shortness of breath that has been ongoing for the past 2 weeks. Patient reported associated signs and symptoms of nausea, cough and orthopnea. Chest x-ray on admission demonstrated mild CHF. Patient noted to have swollen legs and hypotensive. He was admitted for further management. Hospital Course: Patient admitted to the medical floor, nephrology consulted and he was started on Lasix drip for anasarca Patient lower extremity edema and ascites significantly improved with IV Lasix drip but still with significant edema by CT. Patient pulled out his IV line. He was hypotensive during the hospital stay. Was seen in consultation by cardiology who recommended medical management, careful diuresis and suggested patient has cardiorenal syndrome and may benefit from dialysis. IV Lasix drip was transitioned to oral Bumex which she tolerated with no further drop in blood pressure Nephrology also put him on midodrine while on the Lasix. Midodrine discontinued on discharge. Serum creatinine was stable with diuresis. Patient was ambulatory and tolerated diet He has clinically improved and wants to go home. Patient is prescribed Bumex to use as needed once daily in addition to his scheduled home Lasix dose for increased edema. He is informed to follow-up with Dr. Kelley within 1 week. Vital Signs/Physical Exam: Temp Pulse Resp BP Pulse Ox 97.3 F 73 14 82/60 L 98 10/18/22 15:50 10/18/22 15:50 10/18/22 15:50 10/18/22 15:50 10/18/22 15:50 Laboratory Data at Discharge: WBC 5.10 K/uL (4.3-10.9) 10/14/22 06:11 Hgb 12.8 g/dL (13.6-17.9) L 10/14/22 06:11 Hct 38.7 % (39.6-49.0) L 10/14/22 06:11 Plt Count 130 K/uL (152-406) L 10/14/22 06:11 PT 35.4 SECONDS (9.5-12.5) H 10/13/22 16:18 INR 3.22 10/13/22 16:18 Sodium 135 mmol/L (136-145) L 10/18/22 03:10 Potassium 4.7 mmol/L (3.5-5.1) D 10/18/22 03:10 BUN 66 mg/dL (7-18) H 10/18/22 03:10 Creatinine 2.80 mg/dL (0.70-1.30) H 10/18/22 03:10 Glucose 92 mg/dL (74-106) 10/18/22 03:10 Phosphorus 3.6 mg/dL (2.5-4.9) 10/18/22 03:10 Magnesium 2.9 mg/dL (1.6-2.4) H 10/17/22 12:58 Total Bilirubin 2.2 mg/dL (0.2-1.0) H 10/13/22 16:18 AST 63 U/L (15-37) H 10/13/22 16:18 ALT 77 U/L (16-61) H 10/13/22 16:18 Alkaline Phosphatase 136 U/L (45-117) H 10/13/22 16:18 Home Medications: Atorvastatin Calcium 1 tab PO DAILY 10/14/22 Zolpidem Tartrate 1 tab PO SEECOM 10/14/22 Aspirin [Aspirin EC 81 MG] 81 mg PO DAILY #30 tab 10/18/22 Bumetanide 2 mg PO DAILY #30 tab 10/18/22 Fluticasone [Flonase 50MCG Nasal [place]*] 1 sprays MOUSTAPHA BID #1 btl 10/18/22 New Medications: Aspirin [Aspirin EC 81 MG] 81 mg PO DAILY #30 tab Bumetanide 2 mg PO DAILY #30 tab Fluticasone [Flonase 50MCG Nasal [place]*] 1 sprays MOUSTAPHA BID #1 btl Diet: Renal Activity: Ad kai Followup: Suresh Kelley DO [ACTIVE - CAN ADMIT] - 1 Week Mauricio Hair MD [Primary Care Provider] - (within 2 weeks.)
--- NOTE | 2022-10-18 19:25 | P.PN ---
Date of Service: 10/18/22 Vital Signs Temp Pulse Resp BP Pulse Ox 97.3 F 73 14 82/60 L 98 10/18/22 15:50 10/18/22 15:50 10/18/22 15:50 10/18/22 15:50 10/18/22 15:50 Assessment/ Plan: Nephrology Feeling better with improved dyspnea No chest pain Improved LE edema No acute events overnight Vitals, medications, blood work and imaging reviewed in the chart General: Oriented x3, Cooperative HEENT: Atraumatic Neck: Supple Respiratory: Diminished Cardiovascular: Regular rate/rhythm, Edema Gastrointestinal: Soft and benign, Non-distended Musculoskeletal: No clubbing, No contractures Integumentary: No rashes, No cyanosis Neurological: Normal speech Laboratory Data (last 24 hrs) 10/13/22 16:18: PT 35.4 H, INR 3.22 10/13/22 16:18: WBC 5.40, Hgb 13.0 L, Hct 39.2 L, Plt Count 139 L 10/13/22 16:18: Sodium 136, Potassium 3.8, BUN 65 H, Creatinine 2.64 H, Glucose 88, Magnesium 2.6 H, Total Bilirubin 2.2 H, AST 63 H, ALT 77 H, Alkaline Phosphatase 136 H Imagings Data: EXAM DESCRIPTION: RADChest Single View10/13/2022 4:07 pm CLINICAL HISTORY: Chest pain COMPARISON: 2020 FINDINGS: Mild bilateral pulmonary opacities Heart is moderately to markedly enlarged. There may be small pleural effusions IMPRESSION: Mild CHF EXAM DESCRIPTION: USExtrem Venous W Compress Bil10/13/2022 4:41 pm CLINICAL HISTORY: Leg swelling COMPARISON: none FINDINGS: The common femoral, superficial femoral, popliteal and posterior tibial veins bilaterally are compressible and demonstrate augmentation. Doppler demonstrates good flow. Grayscale, color and spectral analysis performed on all vessels IMPRESSION: No evidence of deep venous thrombosis involving either lower extremity. Conclusions/Impression: Stage I AMY in the setting of hypotension & CRS CKD IIIb -No NSAIDs -Continue diuresis as tolerated -Agree with stopping Lasix gtt and starting bumetanide Hypervolemic Hyponatremia -Continue Bumetanide Chronic hypotension -Continue midodrine Systolic CHF, A/C -Low sodium diet -Agree with stopping Lasix gtt and starting bumetanide Anemia in chronic illness Thrombocytopenia -Monitor CBC Case reviewed with Dr. August
== END 2022-10-18 18:27 | disposition home or self-care (01) | DRG 291 ==
LOC: ER 15:24 → ERHOLD 17:13 → 2ND 20:49 → OBSVTOIN 10-14 12:19
PROVIDERS: ADMIT Nurse Practitioner Family; ATTEND Internal Medicine
DX: I13.0 Hypertensive heart and chronic kidney disease with heart failure and stage 1 through stage 4 chronic kidney disease, or unspecified chronic kidney disease (principal); I50.23 Acute on chronic systolic (congestive) heart failure; R18.8 Other ascites; N17.9 Acute kidney failure, unspecified; E87.1 Hypo-osmolality and hyponatremia; N18.4 Chronic kidney disease, stage 4 (severe); D63.1 Anemia in chronic kidney disease; E03.9 Hypothyroidism, unspecified; I95.89 Other hypotension; I43 Cardiomyopathy in diseases classified elsewhere; G47.00 Insomnia, unspecified; E78.5 Hyperlipidemia, unspecified; D69.6 Thrombocytopenia, unspecified; D63.8 Anemia in other chronic diseases classified elsewhere; I25.2 Old myocardial infarction; Z79.01 Long term (current) use of anticoagulants; Z86.73 Personal history of transient ischemic attack (TIA), and cerebral infarction without residual deficits; Z79.890 Hormone replacement therapy; Z79.899 Other long term (current) drug therapy; Z20.822 Contact with and (suspected) exposure to COVID-19
CPT/HCPCS: 36415; 71045; 74176; 80048; 80069; 80076; 83735; 83880; 84100; 84484; 85025; 85610; 87811; 93005; 93306; 93970; 96365; 99285; G0378; J1644; J2405; J7050

== ENCOUNTER 2022-10-21 15:40 | Emergency (ER) | payer OTHER ==
--- OUTSIDE RECORDS SUMMARY | 2022-10-21 16:02 | XMS REPORT | Continuity of Care Document ---
:1945 Author Organization [facility] t Address [address] [place] [address] [address]. [address] [place] [address] Care Team Providers Name Role Phone Otto Bradley DO Primary Care Physician [phone] Vernon Bajwa Attending Clinician Unavailable Ama Renteria MD Attending Clinician Tico CRABTREE, Deann Attending Clinician Unavailable Jennifer Schaefer MD Attending Clinician [phone] MD AMA RENTERIA Attending Clinician Unavailable Jennifer Cash CRNA Attending Clinician Terrance Garza Attending Clinician Jenni Garza Attending Clinician JENNI GARZA Attending Clinician Unavailable NIRAV GREGG M.D. Attending Clinician Unavailable SIMI NAVARRO Attending Clinician Unavailable Simi Navarro Attending Clinician AMA RENTERIA Admitting Clinician Unavailable MD AMA RENTERIA Admitting Clinician Unavailable Jenni Garza Admitting Clinician JENNI GARZA Admitting Clinician Unavailable SIMI NAVARRO Admitting Clinician Unavailable Simi Navarro Admitting Clinician Payers Payer Name Policy Type Policy Number Effective Date Expiration Date Kalli [facility] 53 [id number] 2020 [facility] ADVANTAGE 00:00:[facility] MEDICARE MB [id number] [facility] NOVITAS - [facility] MEDICARE MB [id number] [facility] NOVITAS - [facility] MEDICARE MB [id number] [facility] NOVITAS - [facility] MEDICARE MB [id number] [facility] NOVITAS [facility] Problems Condition Condition Condition Status Onset Resolution [...] 2-12 12:58:00 l 12/12/2020 00:00: Leonardo boyd [facility] 00 [place] CHF, AND CHF, AND Diagnosis Active 2020-12-12 Memoria AFIB AFIB 2-12 14:09:00 l Active 00:00: [place] 12/12/2020 [facility] [place] CHF, AFIB CHF, AFIB Diagnosis Active 2020-12-12 Memoria Active 2-12 16:42:00 l 12/12/2020 00:00: Leonardo [facility] 00 [place] PULMNARY PULMNARY Diagnosis Active 2020-11-27 Memoria EMBOLI EMBOLI -18 22:01:00 l Active 00:00: [place] [facility] SO[facility], NO SOB, NO Diagnosis Active 2020-11-17 Memoria APPETITE APPETITE 1-18 15:35:00 l Active 00:00: [place] 11/17/2020 [facility] Dyslipidem Dyslipidem Problem Active U T ia ia Physici ans 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 History of History of Problem Active U T pulmonary pulmonary Phys ici embolus embolus ans (PE) (PE) 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 [facility] (current) (current) Phys ici use of use of ans anticoagul anticoagul ants ants History of History of Problem Active U T stroke stroke Physici ans History of History of Problem Resolve UT hyperlipid hyperlipid d Ph ysici emia emia ans History of History of Problem Resolve UT hypertensi hypertensi d Ph ysici on on ans Single Single Problem 2020-12-23 Abisai obdulio liveborn liveborn 22:21:36 l infant, , [place] delivered delivered by by 12/23/2020 [facility] Myocardial Myocardia Problem Resolve 2021-08-20 Memoria infarction l d 22:46:59 l (disorder) infarction He rmann (disorder) Resolved [facility] Hypertensi Hypertens Problem Active 2021-08-20 Memoria ve erin 22:46:59 l disorder, disorder, Herm elizabeth systemic systemic arterial arterial (disorder) (disorder) Active Problem [facility] Thrombotic Thromboti Problem Active 2021-08-20 Memoria stroke c stroke 22:46:59 l (disorder) (disorder) He rmann Active Problem [facility] Coronary Coronary Problem Active 2021-08-20 Memoria arterioscl arterioscl 22:46:59 l erosis erosis [place] (disorder) (disorder) Active Problem [facility] History of History Problem Active 2021-08-20 Memoria - CVA of - CVA 22:46:59 l (context-d (context-d He ann ependent ependent category) category) Active Problem 08/20/2021 [facility] OTHER OTHER Diagnosis Active 2020-11-27 Mem oria PULMONARY PULMONARY 22:01:00 l EMBOLISM EMBOLISM Leonardo n WITHOUT WITHOUT ACUTE C ACUTE C Active [facility] Chronic Chronic Problem Active [facility] heart heart Physici failure failure ans with with reduced reduced ejection ejection fraction fraction and and diastolic diastolic dysfunctio dysfunctio n n HEART HEART Diagnosis Active 2020-12-22 Me moria FAILURE, FAILURE, 12:58:00 l UNSPECIFIE UNSPECIFIE He rmann D D Active [facility] [place] UNSPECIFIE UNSPECIFI Diagnosis Active 2020-12-12 Memoria D ATRIAL ED ATRIAL 16:42:00 l FIBRILLATI FIBRILLATI He rmann ON ON Active [facility] [place] SINGLE SINGLE Diagnosis Active 2020-12-20 Me musa LIVEBORN LIVEBORN 10:16:00 l , , [place] DELIVERED DELIVERED BY JOVANNI BY JOVANNI Active [facility] Persistent Persistent Problem Active U T atrial atrial Physici fibrillati fibrillati an s on on HTN HTN Problem Active UT (hypertens (hypertens Ph ysici ion) ion) ans Essential Benign Problem Common hypertensi essential Spi rit on HTN - [facility] Atheroscle Arterioscl 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 - [facility] disease of artery [facility] coronary [facility] artery Center without angina pectoris Cerebrovas CVA Problem Commo n cular (cerebral Spirit accident infarction - CH I ) [facility] Hyperlipid Hyperlipid Problem C ommon emia emia Spirit [facility] [id number] BPH Problem Common without Spirit obstructio - CHI n/lower urinary [facility] tract Medical symptoms Center [id number] Environmen Problem Co mmon kyra Spirit allergies [facility] [id number] Subclinica Problem Com mon l Spirit hypothyroi - [facility] [id number] Bilateral Problem Comm on hearing Spirit loss, - CHI unspecifie [facility] hearing [facility] loss type [facility] Center [id number] Decreased Problem Comm on appetite Spirit [facility] [id number] Heart Problem Common failure Spirit with - CHI reduced [facility] [id number] Sleep Problem Common apnea, Spirit unspecifie - CHI d type [facility] [id number] Acquired Problem Comm on hypothyroi Spirit dism [facility] [id number] Other Problem Common chronic Spirit pain - [facility] [id number] Carotid Problem Comm on stenosis, Spirit right [facility] [id number] Insomnia, Problem Com mon unspecifie Spirit d type - [facility] [id number] Elevated Problem Comm on TSH Spirit - 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 Family History Family Member Diagnosis Comments Start Date Stop Date Source Natural father [facility] Natural mother [facility] Mother Family history of [facility] Phys icians cardiac pacemaker Sister Family history of [facility] Phys icians malignant neoplasm Social History Social Habit Start Date Stop Date Quantity Comments Source History of [facility] - Tobacco Use [facility] Exposure to Not sure [facility] (event) Alcohol intake 2021-12-14 2021-12-14 Current drinker [facility] dist 00:00:00 00:00:00 of alcohol Hospital (finding) Tobacco use and 2017-11-16 2017-11-16 Smokeless tobacco Me [facility]odist exposure 00:00:00 00:00:00 non-user Hospital Sex Ass[birth year] [employer] 00:00:00 00:00:00 Hospital Smoking Status Start Date Stop Date Source Social History 2020-12-12 23:57:56 2020-12-12 23:57:56 [facility] Medications Ordered Filled Start Stop Current Ordering Indication Dosage Frequency Signature Comments Components Source Medication Medication Date Date Medication? Clinician (SIG) Name Name Zolpidem Zolpidem 2021-10 No 1{table QD Zolpidem Tartrate 10 Tartrate 10 11-13 t_at_be Tartrate MG MG 00:00: dtime_a 10 MG 00 s_neede d} Zolpidem Zolpidem 2021-10 No 1{table QD Zolpidem Tartrate 10 Tartrate 10 14 t_at_be Tartrate MG MG 00:00: dtime_a 10 [...] 09:53: daily. Hospita tablet 02 l metoprolol 2022-0 Yes 12.5mg QD Take 12.5 Methodi tartrate 2-[address] (LOPRESSOR) 09:53: mouth Hospi ta 25 mg 02 daily. l tablet BUMETanide 2022-0 Yes 1mg Q.5D Take 1 mg Me thodi (BUMEX) 1 2-[address] MG tablet 09:53: (two) Hospita 02 times a l day. levothyroxi 2022-0 Yes 88ug QD Take 88 Met hodi ne 2-[address] (SYNTHROID) 09:53: mouth Hospi ta 100 mcg 02 daily. l tablet spironolact 2-0 Yes 25mg QD Take 25 mg [facility] one 2-[address] (ALDACTONE) 09:53: daily. Hosp shanna 25 MG 02 l tablet sacubitriL- 2-0 Yes 1{tbl} Q.5D Take 1 Me thodi valsartan 2-[address] (Entresto) 09:53: mouth 2 Hosp shanna 97-103 mg 02 (two) l tablet per times a tablet day. tamsulosin 2-0 Yes .4mg QD Take 0.4 Met hodi (FLOMAX) 2-[address] 0.4 mg 09:53: mouth Hospita capsule 02 daily with l dinner. rivaroxaban 2-0 Yes 20mg QD Take 20 mg Methodi (XARELTO) 2-[address] 20 mg 09:53: daily. Hospita tablet 02 l metoprolol 2022-0 Yes 12.5mg QD Take 12.5 [facility] tartrate 2-[address] (LOPRESSOR) 09:53: mouth Hospi ta 25 mg 02 daily. l tablet BUMETanide 2-0 Yes 1mg Q.5D Take 1 mg Me thodi (BUMEX) 1 2-[address] MG tablet 09:53: (two) Hospita 02 times a l day. levothyroxi 2022-0 Yes 88ug QD Take 88 Met hodi ne 2-[address] (SYNTHROID) 09:53: mouth Hospi ta 100 mcg 02 daily. l tablet spironolact 2022-0 Yes 25mg QD Take 25 mg Methodi [...] MCG 00:00: 100 MCG 00 Zolpidem Zolpidem 0 No 1{table QD Zolpidem Tartrate ER Tartrate [...] MCG 00:00: 100 MCG 00 Zolpidem Zolpidem 0 No 1{table QD Tartrate 10 Tartrate 10 1-10 t_at_be MG MG 00:00: dtime_a 00 s_neede d} Zolpidem Zolpidem 0 No 1{table QD Zolpidem Tartrate 10 Tartrate [...] MARYSOL TABLET BY Physici Tablet Tablet 00:00: MTutu MOUTH ans 00 DAILY metoprolol 2020-0 Yes 100 mg = 1 M emoria 100 mg oral 2-21 tab, PO, l tablet, 16:30: Daily, # Leonardo n extended 00 30 tab, 0 release Refill(s), Pharmacy: [facility], 180.34, cm, 12/18/20 5:49:00 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, Height, 75.727, kg, 12/12/20 17:48:00 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, Weight rivaroxaban 2020-0 Yes 20 mg = 2 M emoria 10 mg oral 2-21 tab, PO, l tablet 16:30: QPM, For [place] Deep Venous Thrombosis / Pulmonary Embolism, 0 Refill(s) bumetanide 1-0 Yes 1 mg = 1 Mem oria 1 mg oral 2-21 tab, PO, l tablet 16:30: Daily, 0 [place] 00 Refill(s) metoprolol 2020-0 Yes 100 mg = 1 M emoria 100 mg oral 2-21 tab, PO, l tablet, 16:30: Daily, # Leonardo n extended 00 30 tab, 0 release Refill(s), Pharmacy: [facility], 180.34, cm, 12/18/20 5:49:00 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, Height, 75.727, kg, 12/12/20 17:48:00 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, Weight rivaroxaban 2020-0 Yes 20 mg = 2 M emoria 10 mg oral 2-21 tab, PO, l tablet 16:30: QPM, For [place] Deep Venous Thrombosis / Pulmonary Embolism, 0 Refill(s) bumetanide 1-0 Yes 1 mg = 1 Mem oria 1 mg oral 2-21 tab, PO, l tablet 16:30: Daily, 0 [place] 00 Refill(s) metoprolol 2020-0 Yes 100 mg = 1 M emoria 100 mg oral 2-21 tab, PO, l tablet, 16:30: Daily, # Leonardo n extended 00 30 tab, 0 release Refill(s), Pharmacy: [facility], 180.34, cm, 12/18/20 5:49:00 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, Height, 75.727, kg, 12/12/20 17:48:00 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, Weight rivaroxaban Yes 20 mg = 2 M emoria 10 mg oral 2-21 tab, PO, l tablet 16:30: QPM, For Deep Venous Thrombosis / Pulmonary Embolism, 0 Refill(s) bumetanide Yes 1 mg = 1 Mem oria 1 mg oral 2-21 tab, PO, l tablet 16:30: Daily, 0 Refill(s) Xarelto No Notes: Memoria 2-20 (Same as: l 17:30: Xarelto) Xarelto No Notes: Memoria 2-20 (Same as: l 17:30: Xarelto) Xarelto No Notes: Memoria 2-20 (Same as: l 17:30: Xarelto) Amiodarone No Notes: Memor ia 2-20 (Same as: l 15:00: Cordarone) Amiodarone No Notes: Memor ia 2-20 (Same as: l 15:00: Cordarone) Amiodarone No Notes: Memor ia 2-20 (Same as: l 15:00: Cordarone) Bumex No Notes: Memoria 2-19 (Same As: l 17:07: Bumex) Bumex No Notes: Memoria 2-19 (Same As: l 17:07: Bumex) Bumex No Notes: Memoria 2-19 (Same As: l 17:07: Bumex) Heparin - No 6,100 Memoria one time 2-18 unit, 6.1 l bolus for 20:33: mL, Route: He ann DVT/PE 00 IVP, Drug form: INJ, ONCE, Dosing Weight 75.727, kg, Priority: STAT, Start date: 12/18/20 14:33:00 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, Stop date: 12/18/20 14:33:00 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, 0 Heparin 80 No Route: Memor ia unit/kg 2-18 IVP, PRN, l Bolus 20:33: 6,100 [place] (Heparin 00 unit, 6.1 Dosing mL, Drug Weight) form: INJ, PRN, Heparin Protocol, Start date: 12/18/20 14:33:00 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 Stop date: 01/17/21 15:32:00 CDT, 30 day, 0 Heparin 40 No Route: Memor ia unit/kg 2-18 IVP, PRN, l Bolus 20:33: 3,000 [place] (Heparin 00 unit, 3 Dosing mL, Drug Weight) form: INJ, PRN, Heparin Protocol, Start date: 12/18/20 14:33:00 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 Stop date: 01/17/21 15:32:00 CDT, 30 day, 0 heparin No Notes: Memoria additive 2-18 Total l 25,000 unit 20:33: Concentrat [place] [18 00 ion = 50 unit/kg/hr] unit/ [...] kg, Priority: STAT, Start date: 12/18/20 14:33:00 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, Stop date: 12/18/20 14:33:00 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, 0 Heparin 80 No Route: Memor ia unit/kg 2-18 IVP, PRN, l Bolus 20:33: 6,100 [place] (Heparin 00 unit, 6.1 Dosing mL, Drug Weight) form: INJ, PRN, Heparin Protocol, Start date: 12/18/20 14:33:00 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 Stop date: 01/17/21 15:32:00 CDT, 30 day, 0 Heparin 40 No Route: Memor ia unit/kg 2-18 IVP, PRN, l Bolus 20:33: 3,000 [place] (Heparin 00 unit, 3 Dosing mL, Drug Weight) form: INJ, PRN, Heparin Protocol, Start date: 12/18/20 14:33:00 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 Stop date: 01/17/21 15:32:00 CDT, 30 day, 0 heparin No Notes: Memoria additive 2-18 Total l 25,000 unit 20:33: Concentrat [place] [18 00 ion = 50 unit/kg/hr] unit/ [...] kg, Priority: STAT, Start date: 12/18/20 14:33:00 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, Stop date: 12/18/20 14:33:00 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, 0 Heparin 80 No Route: Memor ia unit/kg 2-18 IVP, PRN, l Bolus 20:33: 6,100 [place] (Heparin 00 unit, 6.1 Dosing mL, Drug Weight) form: INJ, PRN, Heparin Protocol, Start date: 12/18/20 14:33:00 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 Stop date: 01/17/21 15:32:00 CDT, 30 day, 0 Heparin 40 No Route: Memor ia unit/kg 2-18 IVP, PRN, l Bolus 20:33: 3,000 [place] (Heparin 00 unit, 3 Dosing mL, Drug Weight) form: INJ, PRN, Heparin Protocol, Start date: 12/18/20 14:33:00 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 Stop date: 01/17/21 15:32:00 CDT, 30 day, 0 heparin No Notes: Memoria additive 2-18 Total l 25,000 unit 20:33: Concentrat [place] [18 00 ion = 50 unit/kg/hr] unit/ ml + Premix Total Diluent volume = Sodium 500 ml Chloride Send Med 0.45% 500 Request 2 mL hours prior to next bag Ceftriaxone No Notes: Abisai obdulio 2-18 (Same As: l 20:00: Rocephin). [place] 00 Use with 100 mL NS and [...] obdulio 2-18 (Same As: l 20:00: Rocephin). [place] 00 Use with 100 mL NS and infuse over 30 min MEDICATION WASTE Product Size: 1000 mg Product Wasted: ___ mg albumin No Notes: Lot Abisai mak human 25% 217 #: l intravenous 22:27: [place] solution 00 ___ Mfg: (Same as: Plasbumin- 25) "blood product derivative " WASTE: F/P - Red; E -Red MEDICATION WASTE Product Size: 25 gm Product Wasted: ___ gm albumin No Notes: Lot Abisai gaspar 25% 217 #: l intravenous 22:27: [place] solution 00 ___ Mfg: (Same as: Plasbumin- 25) "blood product derivative " WASTE: F/P - Red; E -Red MEDICATION WASTE Product Size: 25 gm Product Wasted: ___ gm albumin No Notes: Lot Abisai gaspar 25% 2 #: l intravenous 22:27: [place] solution ___ Mfg: (Same as: Plasbumin- 25) "blood product derivative " WASTE: F/P - Red; E -Red MEDICATION WASTE Product Size: 25 gm Product Wasted: ___ gm Bumex No Notes: Memoria 2-17 (Same As: l 19:00: Bumex) [place] Bumex No Notes: Memoria 2-17 (Same As: l 19:00: Bumex) [place] Bumex No Notes: Memoria 2-17 (Same As: [...] WASTE: F/P l 14:15: - Sink; E - Municipal Trash Bin Magnesium No Notes: Memori a Sulfate 2-15 WASTE: F/P l 14:15: - Sink; E - Municipal Trash Bin Magnesium No Notes: Memori a Sulfate 2-15 WASTE: F/P l 14:15: - Sink; E - Municipal Trash Bin Trazodone No Notes: Memori a Hydrochlori 2-15 (Same As: l de 50 MG 03:00: Desyrel) Page nn Oral Tablet Trazodone No Notes: Memori a Hydrochlori 2-15 [...] s with feeding tube less than 14 Filipino (Dobhoff, J-tube etc) and pediatric and patients. [...] s with feeding tube less than 14 Filipino (Dobhoff, J-tube etc) and pediatric and patients. [...] s with feeding tube less than 14 Filipino (Dobhoff, J-tube etc) and pediatric and patients. [...] (Same as: l 23:00: Cordarone) [place] 00 Amiodarone No Notes: Memor ia 2-13 (Same as: l 23:00: Cordarone) [place] 00 Amiodarone No Notes: Memor ia 2-13 (Same as: l 23:00: Cordarone) [place] 00 Heparin 80 No Route: Memor ia unit/kg 2-13 IVP, PRN, l Bolus 16:33: 6,100 [place] (Heparin 00 unit, 6.1 Dosing mL, Drug Weight) form: INJ, PRN, Heparin Protocol, Start date: 12/13/20 10:33:00 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 Stop date: 01/12/21 11:32:00 CDT, 30 day, 0 Heparin 40 No Route: Memor ia unit/kg 2-13 IVP, PRN, l Bolus 16:33: 3,000 [place] (Heparin 00 unit, 3 Dosing mL, Drug Weight) form: INJ, PRN, Heparin Protocol, Start date: 12/13/20 10:33:00 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 Stop date: 01/12/21 11:32:00 CDT, 30 day, 0 heparin No Notes: Memoria additive 2-13 Total l 25,000 unit 16:33: Concentrat [place] [18 00 ion = 50 unit/kg/hr] unit/ ml + Premix Total Diluent volume = Sodium 500 ml Chloride Send Med 0.45% 500 Request 2 mL hours prior to next bag Heparin 80 No Route: Memor ia unit/kg 2-13 IVP, PRN, l Bolus 16:33: 6,100 [place] (Heparin 00 unit, 6.1 Dosing mL, Drug Weight) form: INJ, PRN, Heparin Protocol, Start date: 12/13/20 10:33:00 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 Stop date: 01/12/21 11:32:00 CDT, 30 day, 0 Heparin 40 No Route: Memor ia unit/kg 2-13 IVP, PRN, l Bolus 16:33: 3,000 [place] (Heparin 00 unit, 3 Dosing mL, Drug Weight) form: INJ, PRN, Heparin Protocol, Start date: 12/13/20 10:33:00 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 Stop date: 01/12/21 11:32:00 CDT, 30 day, [...] PRN, Heparin Protocol, Start date: 12/13/20 10:33:00 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 Stop date: 01/12/21 11:32:00 CDT, 30 day, 0 Heparin 40 No Route: Memor ia unit/kg 2-13 IVP, PRN, l Bolus 16:33: 3,000 [place] (Heparin 00 unit, 3 Dosing mL, Drug Weight) form: INJ, PRN, Heparin Protocol, Start date: 12/13/20 10:33:00 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 Stop date: 01/12/21 11:32:00 CDT, 30 day, 0 heparin No Notes: Memoria additive 2-13 Total l 25,000 unit 16:33: Concentrat [place] [18 00 ion = 50 unit/kg/hr] unit/ ml + Premix Total Diluent volume = Sodium 500 ml Chloride Send Med 0.45% 500 Request 2 mL hours prior to next bag Aspirin 81 No Notes: Memor ia MG Chewable 2-13 Take with l Tablet 15:00: food. [place] 00 Finasteride No Notes: Abisai obdulio 2-13 [...] ia 2-13 (Same As: l 15:00: Flomax) "Do Not Crush" Aspirin 81 No Notes: Memor ia MG Chewable 2-13 Take with l Tablet 15:00: food. Finasteride No Notes: Abisai obdulio 2-13 (Same as: l 15:00: Proscar) "Do Not [...] ia 2-13 (Same As: l 15:00: Flomax) "Do Not Crush" Aspirin 81 No Notes: Memor ia MG Chewable 2-13 Take with l Tablet 15:00: food. Finasteride No Notes: Abisai obdulio 2-13 (Same as: l 15:00: Proscar) "Do Not [...] ia 2-13 (Same As: l 15:00: Flomax) "Do Not Crush" potassium No Notes: Memori [...] s with feeding tube less than 14 Filipino (Dobhoff, J-tube etc) and pediatric and patients. [...] s with feeding tube less than 14 Filipino (Dobhoff, J-tube etc) and pediatric and patients. [...] s with feeding tube less than 14 Filipino (Dobhoff, J-tube etc) and pediatric and patients. Saline No Notes: Memoria Flush 0.9% 2-13 Same as: l 03:00: BD Posiflush Sterile atorvastati No Notes: Abisai obdulio n 2-13 (Same As: l 03:00: Lipitor) Saline No Notes: Memoria Flush 0.9% 2-13 Same as: l 03:00: BD Posiflush Sterile atorvastati No Notes: Abisai obdulio n 2-13 (Same As: l 03:00: Lipitor) Saline No Notes: Memoria Flush 0.9% 2-13 Same as: l 03:00: BD Posiflush Sterile atorvastati No Notes: Abisai obdulio n 2-13 (Same As: l 03:00: Lipitor) Potassium No Notes: Memori a Chloride 2-13 Infuse at l 01:00: a rate of [place] 00 10 mEq/hr. (Same as: KCL) Potassium No Notes: Memori a Chloride 2-13 Infuse at l 01:00: a rate of [place] 00 10 mEq/hr. (Same as: KCL) Potassium No Notes: Memori a Chloride 2-13 Infuse at l 01:00: a rate of [place] 00 10 mEq/hr. (Same as: KCL) Amiodarone No Notes: Memor ia 2-12 (Same as: l 23:44: Cordarone) Amiodarone No Notes: Memor ia 2-12 (Same as: l 23:44: Cordarone) Amiodarone No Notes: Memor ia 2-12 (Same as: l 23:44: Cordarone) Amiodarone No Notes: Memor ia 2-12 (Same as: l 23:00: Cordarone) [place] Xarelto No Notes: Memoria 2-12 (Same as: l 23:00: Xarelto) Amiodarone No Notes: Memor ia 2-12 (Same as: l 23:00: Cordarone) Xarelto No Notes: Memoria 2-12 (Same as: l 23:00: Xarelto) Amiodarone No Notes: Memor ia 2-12 (Same as: l 23:00: Cordarone) [place] Xarelto No Notes: Memoria 2-12 (Same as: l 23:00: Xarelto) [place] Furosemide No Notes: Memor ia 2-12 (Same as: l 22:53: Lasix) MEDICATION WASTE Product Size: 40 mg Product Wasted: ___ mg Ondansetron No Notes: Abisai obdulio 2-12 (Same as: l 22:53: Zofran) MEDICATION WASTE Product Size: 4 mg Product Wasted: ___ mg Saline No Notes: Memoria Flush 0.9% 2-12 Same as: l 22:53: BD [place] Posiflush Sterile Furosemide No Notes: Memor ia 2-12 (Same as: l 22:53: Lasix) [place] 00 MEDICATION WASTE Product Size: 40 mg Product Wasted: ___ mg Ondansetron No Notes: Abisai obdulio 2-12 (Same as: l 22:53: Zofran) [place] 00 MEDICATION WASTE Product Size: 4 mg Product Wasted: ___ mg Saline No Notes: Memoria Flush 0.9% 2-12 Same as: l 22:53: BD [place] Posiflush Sterile Furosemide No Notes: Memor ia 2-12 (Same as: l 22:53: Lasix) [place] 00 MEDICATION WASTE Product Size: 40 mg Product Wasted: ___ mg Ondansetron No Notes: Abisai obdulio 2-12 (Same as: l 22:53: Zofran) [place] 00 MEDICATION WASTE Product Size: 4 mg Product Wasted: ___ mg Saline No Notes: Memoria Flush 0.9% 2-12 Same as: l 22:53: BD [place] 00 Posiflush Sterile rivaroxaban Yes 15 mg = 1 M emoria 15 mg oral 1-24 tab, PO, l tablet 18:51: Q12H, For Leonardo n 00 Deep Venous Thrombosis / Pulmonary Embolism, # 36 tab, 0 Refill(s), Pharmacy: [facility], 182.88, cm, 11/17/20 14:04:00 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, Height, 74, kg, 11/17/20 14:04:00 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, Weight rivaroxaban Yes =15 Memori a 20 MG Oral 1-24 mL/min, l Tablet 18:51: 182.88Barber [Xarelto] 00 cm, 11/17/20 14:04:00 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, Height, 74, kg, 11/17/20 14:04:00 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, Weight rivaroxaban Yes 15 mg = 1 M emoria 15 mg oral 1-24 tab, PO, l tablet 18:51: Q12H, For Leonardo n 00 Deep Venous Thrombosis / Pulmonary Embolism, # 36 tab, 0 Refill(s), Pharmacy: [facility], 182.88, cm, 11/17/20 14:04:00 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, Height, 74, kg, 11/17/20 14:04:00 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, Weight rivaroxaban Yes =15 Memori a 20 MG Oral 1-24 mL/min, l Tablet 18:51: 182.88, [place] [Xarelto] 00 cm, 11/17/20 14:04:00 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, Height, 74, kg, 11/17/20 14:04:00 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, Weight rivaroxaban Yes 15 mg = 1 M emoria 15 mg oral 1-24 tab, PO, l tablet 18:51: Q12H, For Leonardo n 00 Deep Venous Thrombosis / Pulmonary Embolism, # 36 tab, 0 Refill(s), Pharmacy: [facility], 182.88, cm, 11/17/20 14:04:00 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, Height, 74, kg, 11/17/20 14:04:00 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, Weight rivaroxaban Yes =15 Memori a 20 MG Oral 1-24 mL/min, l Tablet 18:51: 182.88, [place] [Xarelto] 00 cm, 11/17/20 14:04:00 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, Height, 74, kg, 11/17/20 14:04:00 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, Weight AMIODarone Yes 200 mg = 1 M emoria 200 mg oral 1-24 tab, PO, l tablet 18:50: BID, # 60 Leonardo n 00 tab, 0 Refill(s), Pharmacy: [facility], 182.88, cm, 11/17/20 14:04:00 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, Height, 74, kg, 11/17/20 14:04:00 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, Weight Furosemide Yes 20 mg = 1 Me moria 20 MG Oral 1-24 tab, PO, l Tablet 18:50: Daily, # [place] 00 30 tab, 0 Refill(s), Pharmacy: [facility], 182.88, cm, 11/17/20 14:04:00 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, Height, 74, kg, 11/17/20 14:04:00 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, Weight lisinopril 0 Yes 2.5 mg = 1 M emoria 2.5 mg oral 1-24 tab, PO, l tablet 18:50: Daily, # [place] 00 30 tab, 0 Refill(s), Pharmacy: [facility], 182.88, cm, 11/17/20 14:04:00 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, Height, 74, kg, 11/17/20 14:04:00 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, Weight Metoprolol 0 Yes 50 mg = 1 Me moria Succinate 1-24 tab, PO, l ER 50 mg 18:50: Daily, # Page nn oral 00 30 tab, 0 tablet, Refill(s), extended Pharmacy: [facility], 182.88, cm, 11/17/20 14:04:00 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, Height, 74, kg, 11/17/20 14:04:00 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, Weight AMIODarone Yes 200 mg = 1 M emoria 200 mg oral 1-24 tab, PO, l tablet 18:50: BID, # 60 Leonardo n 00 tab, 0 Refill(s), Pharmacy: [facility], 182.88, cm, 11/17/20 14:04:00 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, Height, 74, kg, 11/17/20 14:04:00 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, Weight Furosemide 0 Yes 20 mg = 1 Me moria 20 MG Oral 1-24 tab, PO, l Tablet 18:50: Daily, # [place] 00 30 tab, 0 Refill(s), Pharmacy: [facility], 182.88, cm, 11/17/20 14:04:00 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, Height, 74, kg, 11/17/20 14:04:00 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, Weight lisinopril Yes 2.5 mg = 1 M emoria 2.5 mg oral 1-24 tab, PO, l tablet 18:50: Daily, # [place] 00 30 tab, 0 Refill(s), Pharmacy: [facility], 182.88, cm, 11/17/20 14:04:00 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, Height, 74, kg, 11/17/20 14:04:00 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, Weight Metoprolol Yes 50 mg = 1 Me moria Succinate 1-24 tab, PO, l ER 50 mg 18:50: Daily, # Page nn oral 00 30 tab, 0 tablet, Refill(s), extended Pharmacy: [facility], 182.88, cm, 11/17/20 14:04:00 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, Height, 74, kg, 11/17/20 14:04:00 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, Weight AMIODarone Yes 200 mg = 1 M emoria 200 mg oral 1-24 tab, PO, l tablet 18:50: BID, # 60 Leonardo n 00 tab, 0 Refill(s), Pharmacy: [facility], 182.88, cm, 11/17/20 14:04:00 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, Height, 74, kg, 11/17/20 14:04:00 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, Weight Furosemide Yes 20 mg = 1 Me moria 20 MG Oral 1-24 tab, PO, l Tablet 18:50: Daily, # [place] 00 30 tab, 0 Refill(s), Pharmacy: [facility], 182.88, cm, 11/17/20 14:04:00 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, Height, 74, kg, 11/17/20 14:04:00 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, Weight lisinopril Yes 2.5 mg = 1 M emoria 2.5 mg oral 1-24 tab, PO, l tablet 18:50: Daily, # [place] 00 30 tab, 0 Refill(s), Pharmacy: [facility], 182.88, cm, 11/17/20 14:04:00 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, Height, 74, kg, 11/17/20 14:04:00 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, Weight Metoprolol 0 Yes 50 mg = 1 Me moria Succinate 1-24 tab, PO, l ER 50 mg 18:50: Daily, # Page nn oral 00 30 tab, 0 tablet, Refill(s), extended Pharmacy: [facility], 182.88, cm, 11/17/20 14:04:00 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, Height, 74, kg, 11/17/20 14:04:00 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, Weight Furosemide No Notes: Memor ia 20 [...] (Same as: l Tablet 15:00: Lasix) May Page cause GI upset. Give with food [...] a 1-22 (Same as: l 01:33: Melatonin) Melatonin No Notes: Memori a 1-22 (Same as: l 01:33: Melatonin) Melatonin No Notes: Memori a 1-22 (Same as: l 01:33: Melatonin) Amiodarone No Notes: Memor ia 1-21 (Same as: l 23:00: Cordarone) Amiodarone No Notes: Memor ia 1-21 (Same as: l 23:00: Cordarone) Amiodarone No Notes: Memor ia 1-21 (Same as: l 23:00: Cordarone) Lactated No 500 mL, Memori a Ringers IV 11-20 Rate: 125 l 500 mL 16:49: ml/hr, Infuse over: 4 hr, Route: IV, Dosing Weight 74 kg, Total Volume: 500, Start date: 11/20/20 10:49:00 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, Duration: 1 doses or times, Stop date: 11/20/20 14:48:00 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, 1.94, m2, 0 Lactated No 500 mL, Memori a Ringers IV 11-20 Rate: 125 l 500 mL 16:49: ml/hr, [place] Infuse over: 4 hr, Route: IV, Dosing Weight 74 kg, Total Volume: 500, Start date: 11/20/20 10:49:00 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, Duration: 1 doses or times, Stop date: 11/20/20 14:48:00 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, 1.94, m2, 0 Lactated No 500 mL, Memori a Ringers IV 11-20 Rate: 125 l 500 mL 16:49: ml/hr, Barber 00 Infuse over: 4 hr, Route: IV, Dosing Weight 74 kg, Total Volume: 500, Start date: 11/20/20 10:49:00 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, Duration: 1 doses or times, Stop date: 11/20/20 14:48:00 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, 1.94, m2, 0 Cathflo No Notes: do Memor ia Activase 2 11-20 not load l mg 07:48: in pyxis [place] injection 6 00 mg + Sodium Chloride 0.9% IV 94 mL Cathflo No Notes: do Memor ia Activase 2 11-20 not load l mg 07:48: in pyxis [place] injection 6 00 mg + Sodium Chloride 0.9% IV 94 mL Cathflo No Notes: do Memor ia Activase 2 11-20 not load l mg 07:48: in pyxis [place] injection 6 00 mg + Sodium Chloride 0.9% IV 94 mL Ativan No Notes: Memoria 1-20 (Same as: l 23:21: Ativan) [place] 00 Ativan No Notes: Memoria 1-20 (Same as: l 23:21: Ativan) Barber 00 Ativan No Notes: Memoria 1-20 (Same as: l 23:21: Ativan) [place] normal No 250 mL, Memoria saline 0.9% -20 250 ml/hr, l (Bolus) IV 22:19: Infuse Page nn 00 Over: 1 hr, Route: IV, 250, Drug form: INJ, ONCE, Priority: STAT, Dosing Weight 74 kg, Start date: 11/19/20 16:19:00 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, Stop date: 11/19/20 16:19:00 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, 0 normal No 250 mL, Memoria saline 0.9% 1-20 250 ml/hr, l (Bolus) IV 22:19: Infuse Page nn 00 Over: 1 hr, Route: IV, 250, Drug form: INJ, ONCE, Priority: STAT, Dosing Weight 74 kg, Start date: 11/19/20 16:19:00 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, Stop date: 11/19/20 16:19:00 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, 0 normal No 250 mL, Memoria saline 0.9% 1-20 250 ml/hr, l (Bolus) IV 22:19: Infuse Page nn 00 Over: 1 hr, Route: IV, 250, Drug form: INJ, ONCE, Priority: STAT, Dosing Weight 74 kg, Start date: 11/19/20 16:19:00 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, Stop date: 11/19/20 16:19:00 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, 0 Metoprolol No Notes: Memor ia Succinate [...] tab, but extended do not release crush. Cathflo No Notes: do Memor ia Activase 2 1-20 not load l mg 19:50: in pyxis [place] injection 6 00 mg + Sodium Chloride 0.9% IV 94 mL heparin No Notes: Memoria additive 1-20 Total l 25,000 unit 19:50: Concentrat [place] [250 00 ion = 50 unit/hr] + unit/ ml Premix Total Diluent volume = Sodium 500 ml Chloride Send Med 0.45% 500 Request 2 mL hours prior to next bag Sodium No 1,000 mL, Memori a Chloride 1-20 Rate: 35 l 0.9% IV 19:50: ml/hr, [place] 1,000 mL 00 Infuse over: 28.6 hr, Route: IV, Dosing Weight 74 kg, Total Volume: 1,000, Start date: 11/19/20 13:50:00 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, Duration: 2 day, Stop date: 11/21/20 13:49:00 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, 1.94, m2, 0 Cathflo No Notes: do Memor ia Activase 2 1-20 not load l mg 19:50: in pyxis [place] injection 6 00 mg + Sodium Chloride 0.9% IV 94 mL heparin No Notes: Memoria additive 1-20 Total l 25,000 unit 19:50: Concentrat [place] [250 00 ion = 50 unit/hr] + [...] Total Volume: 1,000, Start date: 11/19/20 13:50:00 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, Duration: 2 day, Stop date: 11/21/20 13:49:00 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, 1.94, m2, 0 heparin No Notes: Memoria additive 1-20 Total l 25,000 unit 19:50: Concentrat [place] [250 00 ion = 50 unit/hr] + unit/ ml Premix Total Diluent volume = Sodium 500 ml Chloride Send Med 0.45% 500 Request 2 mL hours prior to next bag Sodium No 1,000 mL, Memori a Chloride 1-20 Rate: 35 l 0.9% IV 19:50: ml/hr, [place] 1,000 mL 00 Infuse over: 28.6 hr, Route: IV, Dosing Weight 74 kg, Total Volume: 1,000, Start date: 11/19/20 13:50:00 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, Duration: 2 day, Stop date: 11/21/20 13:49:00 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, 1.94, m2, 0 Cathflo No Notes: do [...] but extended do not release crush. Sodium 2020-0 No 250 mL, Memoria Chloride 1-20 Rate: To l 0.9% 14:29: prime line Barber (titrate) 00 and flush 250 mL remaining blood products., Dosing Weight 74, kg, Route: IV, Total Volume: 250, Start Date: 11/19/20 8:29:00 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, Duration: 1 day, Stop date: 11/20/20 8:28:00 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, Replace Every: 24 hr, 0 Sodium 1-0 No 250 mL, Memoria Chloride 1-20 Rate: To l 0.9% 14:29: prime line [place] (titrate) 00 and flush 250 mL remaining blood products., Dosing Weight 74, kg, Route: IV, Total Volume: 250, Start Date: 11/19/20 8:29:00 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, Duration: 1 day, Stop date: 11/20/20 8:28:00 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, Replace Every: 24 hr, 0 Sodium 2021-0 No 250 mL, Memoria Chloride 1-20 Rate: To l 0.9% 14:29: prime line Barber (titrate) 00 and flush 250 mL remaining blood products., Dosing Weight 74, kg, Route: IV, Total Volume: 250, Start Date: 11/19/20 8:29:00 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, Duration: 1 day, Stop date: 01/21/21 8:28:00 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, Replace Every: 24 hr, 0 atorvastati No [...] 74, kg, Daily, Start date: 11/18/20 9:00:00 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, Duration: 30 day, Stop date: 12/17/20 9:00:00 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 tamsulosin No Notes: Memor ia 1-19 (Same [...] PO, l MG / 15:00: Drug Form: [place] Lisinopril 00 TAB, 20 MG Oral Dosing Tablet Weight 74, kg, Daily, Start date: 11/18/20 9:00:00 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, Duration: 30 day, Stop date: 12/17/20 9:00:00 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 tamsulosin No Notes: Memor ia -19 (Same As: l 15:00: Flomax) "Do Not Crush" Amlodipine No Notes: Memor ia - (Same as: l 15:00: Norvasc) Plavix No Notes: Memoria - (Same As: l 15:00: Plavix) Finasteride No Notes: Abisai obdulio - (Same as: l 15:00: Proscar) "Do Not Crush" Women of childbeari ng age should not touch or handle broken tablets Hazardous Drug Group 3:Reproduc tive risk Hazardous Drug -- Refer to safe handling procedure PPE Matrix Hydrochloro No 1 tab, Abisai obdulio thiazide 25 -19 Route: PO, l MG / 15:00: Drug Form: [place] Lisinopril 00 TAB, 20 MG Oral Dosing Tablet Weight 74, kg, Daily, Start date: 11/18/20 9:00:00 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, Duration: 30 day, Stop date: 12/17/20 9:00:00 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 tamsulosin No Notes: Memor ia -19 (Same As: l 15:00: Flomax) "Do Not Crush" Levaquin No Notes: Do Abisai obdulio 1-19 not give l 14:00: w/antacids [place] 00 , dairy pdt & minerals Take 1 hr before or 2 hr after dairy pdt (Same as:Levaqui n) Levaquin No Notes: Do Abisai obdulio 1-19 not give l 14:00: w/antacids [place] 00 , dairy pdt & minerals Take 1 hr before or 2 hr after dairy pdt (Same as:Levaqui n) Levaquin 2021-0 No Notes: Do Abisai obdulio 1-19 not give l 14:00: w/antacids [place] 00 , dairy pdt & minerals Take 1 hr before or 2 hr after dairy pdt (Same as:Levaqui n) Levaquin No Notes: Memoria 11-18 (Same l 08:00: as:Levaqui [place] 00 n) Levaquin No Notes: Memoria 11-18 (Same l 08:00: as:Levaqui [place] 00 n) Levaquin No Notes: Memoria 11-18 (Same l 08:00: as:Levaqui [place] 00 n) Saline No Notes: Memoria Flush 0.9% 11-18 Same as: l 03:00: BD [place] 00 Posiflush Sterile Saline No Notes: Memoria Flush 0.9% 11-18 Same as: l 03:00: BD [place] 00 Posiflush Sterile Saline No Notes: Memoria Flush 0.9% 11-18 Same as: l 03:00: BD [place] 00 Posiflush Sterile AMIODarone No 2 mg/ml. [...] 900 mg Product Wasted: ___ mg AMIODarone 0 No 2 mg/ml. Me moria 900 mg in 11-18 Use Glass l D5W 500 ml 02:48: Bottle or He rmann IV 900 mg + 00 Non PVC Dextrose 5% Bag "Use in Water IV 0.22 482 mL micron in-line filter" MEDICATION WASTE Product Size: 900 mg Product Wasted: ___ mg Amiodarone 2020-0 No 2 mg/ml. Va moria 11-18 "Recommend l 02:47: ation: Use [place] 00 an in-line filter during administra tion for continuous infusions to reduce the incidence of phlebitis" (Same as Codarone) MEDICATION WASTE Product Size: 150 mg Product Wasted: ___ mg Amiodarone 2020-0 No 2 mg/ml. Va moria 11-18 "Recommend l 02:47: ation: Use [place] 00 an in-line filter during administra tion for continuous infusions to reduce the incidence of phlebitis" (Same as Codarone) MEDICATION WASTE Product Size: 150 mg Product Wasted: ___ mg Amiodarone 2020-0 No 2 mg/ml. Va moria 11-18 "Recommend l 02:47: ation: Use [...] l 02:45: BD [place] 00 Posiflush Sterile Acetaminoph No Notes: Do M emoria en 11-18 not exceed l 02:45: 4 gm/day. Barber 00 (Same as: Tylenol) Ondansetron No Notes: Abisai obdulio - (Same as: l 02:45: Zofran [place] 00 ODT) Saline No Notes: Memoria Flush 0.9% 11-18 Same as: l 02:45: BD [place] 00 Posiflush Sterile Acetaminoph No Notes: Do [...] kg, Priority: STAT, Start date: 11/17/20 20:35:00 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, Stop date: 11/17/20 20:35:00 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, 0 Heparin 80 No Route: Memor ia unit/kg 11-18 IVP, PRN, l Bolus 02:35: 5,900 [place] (Heparin 00 unit, 5.9 Dosing mL, Drug Weight) form: INJ, PRN, Heparin Protocol, Start date: 11/17/20 20:35:00 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 Stop date: 12/17/20 20:34:00 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, 30 day, 0 Heparin 40 No Route: Memor ia unit/kg 11-18 IVP, PRN, l Bolus 02:35: 3,000 [place] (Heparin 00 unit, 3 Dosing mL, Drug Weight) form: INJ, PRN, Heparin Protocol, Start date: 11/17/20 20:35:00 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 Stop date: 12/17/20 20:34:00 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, 30 day, 0 heparin No Notes: Memoria additive 11-18 [place] [address] unit 02:35: Concentrat H ermann [18 00 [...] kg, Priority: STAT, Start date: 11/17/20 20:35:00 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, Stop date: 11/17/20 20:35:00 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, 0 Heparin 80 No Route: Memor ia unit/kg -19 IVP, PRN, l Bolus 02:35: 5,900 [place] (Heparin 00 unit, 5.9 Dosing mL, Drug Weight) form: INJ, PRN, Heparin Protocol, Start date: 11/17/20 20:35:00 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 Stop date: 12/17/20 20:34:00 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, 30 day, 0 Heparin 40 No Route: Memor ia unit/kg -19 IVP, PRN, l Bolus 02:35: 3,000 [place] (Heparin 00 unit, 3 Dosing mL, Drug Weight) form: INJ, PRN, Heparin Protocol, Start date: 11/17/20 20:35:00 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 Stop date: 12/17/20 20:34:00 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, 30 day, 0 heparin No Notes: Memoria additive [place] [address] unit 02:35: Concentrat H ermann [18 00 ion = 50 unit/kg/hr] unit/ ml + Premix Total Diluent volume = Sodium 500 ml Chloride Send Med 0.45% 500 Request 2 mL hours prior to next bag Heparin - No Route: Memori a one time -19 IVP, Drug l bolus for 02:35: form: INJ, He rmann DVT/PE 00 ONCE, Dosing Weight 74, kg, Priority: STAT, Start date: 11/17/20 20:35:00 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, Stop date: 11/17/20 20:35:00 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, 0 Heparin 80 No Route: Memor ia unit/kg -19 IVP, PRN, l Bolus 02:35: 5,900 [place] (Heparin 00 unit, 5.9 Dosing mL, Drug Weight) form: INJ, PRN, Heparin Protocol, Start date: 11/17/20 20:35:00 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 Stop date: 12/17/20 20:34:00 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, 30 day, 0 Heparin 40 No Route: Memor ia unit/kg -19 IVP, PRN, l Bolus 02:35: 3,000 [place] (Heparin 00 unit, 3 Dosing mL, Drug Weight) form: INJ, PRN, Heparin Protocol, Start date: 11/17/20 20:35:00 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 Stop date: 12/17/20 20:34:00 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, 30 day, 0 heparin No Notes: Memoria additive 1-19 [place] [address] unit 02:35: Concentrat H ermann [18 00 ion = 50 unit/kg/hr] unit/ ml + Premix Total Diluent volume = Sodium 500 ml Chloride Send Med 0.45% 500 Request 2 mL hours prior to next bag Digoxin No 0.5 mg, Memoria 11-18 Route: l 02:34: IVP, ONCE, Barber 00 Dosing Weight 74, kg, Priority: STAT, Start date: 11/17/20 20:34:00 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, Stop date: 11/17/20 20:34:00 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 Digoxin No 0.5 mg, Memoria 11-18 Route: l 02:34: IVP, ONCE, [place] 00 Dosing Weight 74, kg, Priority: STAT, Start date: 11/17/20 20:34:00 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, Stop date: 11/17/20 20:34:00 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 Digoxin No 0.5 mg, Memoria 11-18 Route: l 02:34: IVP, ONCE, Dosing Weight 74, kg, Priority: STAT, Start date: 11/17/20 20:34:00 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, Stop date: 11/17/20 20:34:00 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 Ceftriaxone No Notes: Abisai obdulio 1-19 (Same As: l 00:32: Rocephin). Use with 100 mL NS and infuse over 30 min MEDICATION WASTE Product Size: 1000 mg Product Wasted: ___ mg Azithromyci No Notes: Abisai obdulio n 1-19 (Same As: l 00:32: Zithromax [place] 00 IV) Ceftriaxone No Notes: Abisai obdulio 1-19 (Same As: l 00:32: Rocephin). Barber Use with 100 mL NS and infuse over 30 min MEDICATION WASTE Product Size: 1000 mg Product Wasted: ___ mg Azithromyci No Notes: Abisai obdulio n 1-19 (Same As: l 00:32: Zithromax [place] 00 IV) Ceftriaxone No Notes: Abisai obdulio 1-19 (Same As: l 00:32: Rocephin). [place] 00 Use with 100 mL NS and infuse over 30 min MEDICATION WASTE Product Size: 1000 mg Product Wasted: ___ mg Azithromyci No Notes: Abisai obdulio n 1-19 (Same As: l 00:32: Zithromax [place] 00 IV) Saline No Notes: Memoria Flush 0.9% 1-18 Same as: l 20:05: BD [place] 00 Posiflush Sterile Saline No Notes: Memoria Flush 0.9% 1-18 Same as: l 20:05: BD [place] 00 Posiflush Sterile Saline No Notes: Memoria Flush 0.9% 1-18 Same as: l 20:05: BD [place] 00 Posiflush Sterile clopidogrel 2019-10 Yes 75 mg = 1 M emoria 75 MG Oral 0-16 tab, PO, l Tablet 16:05: Daily, # [place] [Plavix] 00 90 tab, 2 Refill(s), Pharmacy: [facility], 177.8, cm, 08/15/20 10:35:00 CDT, Height, 80, kg, 08/15/20 10:35:00 CDT, Weight clopidogrel 2019-10 Yes 75 mg = 1 M emoria 75 MG Oral 0-16 tab, PO, l Tablet 16:05: Daily, # [place] [Plavix] 00 90 tab, 2 Refill(s), Pharmacy: [facility], 177.8, cm, 08/15/20 10:35:00 CDT, Height, 80, kg, 08/15/20 10:35:00 CDT, Weight clopidogrel 2019-10 Yes 75 mg = 1 M emoria 75 MG Oral 0-16 tab, PO, l Tablet 16:05: Daily, # [place] [Plavix] 00 90 tab, 2 Refill(s), Pharmacy: [facility], 177.8, cm, 08/15/20 10:35:00 CDT, Height, 80, kg, 08/15/20 10:35:00 CDT, Weight atorvastati Yes 20 mg = 1 M emoria n 20 mg 7-15 tab, PO, l oral tablet 15:23: Bedtime, # [place] 00 90 tab, 2 Refill(s), Pharmacy: [facility], 180.34, cm, 01/04/20 12:00:00 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, Height, 90, kg, 01/04/20 12:00:00 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, Weight atorvastati Yes 20 mg = 1 M emoria n 20 mg 7-15 tab, PO, l oral tablet 15:23: Bedtime, # [place] 00 90 tab, 2 Refill(s), Pharmacy: [facility], 180.34, cm, 01/04/20 12:00:00 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, Height, 90, kg, 01/04/20 12:00:00 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, Weight atorvastati Yes 20 mg = 1 M emoria n 20 mg 7-15 tab, PO, l oral tablet 15:23: Bedtime, # [place] 00 90 tab, 2 Refill(s), Pharmacy: [facility], 180.34, cm, 01/04/20 12:00:00 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, Height, 90, kg, 01/04/20 12:00:00 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, Weight atorvastati 2018-10 Yes 20 mg = 1 M emoria n 20 mg 0-11 tab, PO, l oral tablet 14:57: Bedtime, # [place] 46 90 tab, 2 Refill(s), Pharmacy: [facility] atorvastati 2018-10 Yes 20 mg = 1 M emoria n 20 mg 0-11 tab, PO, l oral tablet 14:57: Bedtime, # Barber 46 90 tab, 2 Refill(s), Pharmacy: [facility] atorvasta 2018-10 Yes 20 mg = 1 M emoria n 20 mg 0-11 tab, PO, l oral tablet 14:57: Bedtime, # [place] 46 90 tab, 2 Refill(s), Pharmacy: [facility] finasteride 2016-10 Yes 5mg Take 5 mg [...] MG CR 00:00: daily. Hospi ta tablet l finasteride 2016-10 Yes 5mg Take 5 mg M [facility] (PROSCAR) 5 2-[address] mg tablet 00:00: daily. Hospit [facility] lisinopril- 2016-10 Yes 20{tbl} Take 20-25 [facility] hydrochloro 2-[address] thiazide 00:00: [facility] (ESDRASE,Z 00 daily. l ESTORETIC) 20-25 mg per tablet amLODIPine 2016-10 Yes 5mg Take 5 mg Me thodi (NORVASC) 5 2-[address] mg tablet 00:00: daily. Hospit a l zolpidem CR 2016-10 Yes 10mg Take 10 mg [facility] (AMBIEN CR) 2-[address] 12.5 MG CR 00:00: daily. Hospi ta tablet l finasteride 2016-10 Yes 5mg Take 5 mg M [facility]i (PROSCAR) 5 2-[address] mg tablet 00:00: daily. Hospit a l amLODIPine 2016-10 Yes 5mg Take 5 mg Me thodi (NORVASC) 5 2-[address] mg tablet 00:00: daily. Hospit a l zolpidem CR 2016-10 Yes 10mg Take 10 mg [facility] (AMBIEN CR) 2-[address] 12.5 MG CR 00:00: daily. Hospi ta tablet l lisinopril- 2016-10- No 20{tbl} Take 20-25 [facility] hydrochloro 2-20 02-10 tablets by s t thiazide 00:00: 00:00 [facility] (ZIDE,Z 00 :00 daily. l ESTORETIC) 20-25 mg per tablet lisinopril- 2016-10- No 20{tbl} Take 20-25 [facility] hydrochloro 2-20 02-10 tablets by s t thiazide 00:00: 00:00 [facility] (ZIDE,Z 00 :00 daily. l ESTORETIC) 20-25 mg [...] MG 00:00: daily. [facility]ospita tablet 00 l Amiodarone Amiodarone Yes BENNET Q0.5D TAKE 1 [...] Extended Release 24 Release 24 Hour Hour Zolpidem Zolpidem Yes [place] 1 tablet C ommon Tartrate Tartrate Bajwa at bedtime [facility] as needed - [facility] Levothyroxi Levothyroxi No QD Levothyrox ne [...] Levocetiriz No 1{table QD Levocetiri ine ine t_in_ zine Dihydrochlo Dihydrochlo e_eveni Dihydrochl ride 5 [...] Sodium 75 MCG 75 MCG 75 MCG Spironolact Spironolact 2021- No 1{table BID Spironolac one 25 MG one 25 MG 09-20 t} tone 25 MG 00:00 :00 Spironolact Spironolact 2021- No 1{table BID Spironolac one 25 MG one 25 MG 09-20} tone 25 MG 00:00 :00 Spironolact Spironolact 2021- No 1{table BID Spironolac one 25 MG one 25 MG 09-20} tone 25 MG 00:00 :00 Spironolact Spironolact 2021- No 1{table BID Spironolac one 25 MG one 25 MG 09-20} tone 25 MG 00:00 :00 Spironolact Spironolact 2021- No 1{table BID Spironolac one 25 MG one 25 MG 09-20} tone 25 MG 00:00 :00 Spironolact Spironolact [...] Spironolac one 25 MG one 25 MG 06 tone 25 MG 00:00 :00 Spironolact Spironolact 2022- No one 25 MG one 25 MG 06 00:00 :00 Spironolact Spironolact 2022- No Spironolac one 25 MG one 25 MG 06 tone 25 MG 00:00 :00 Finasteride Finasteride 2- No 1{table QD Finasterid 5 MG 5 [...] 1{table QD Finasterid 5 MG 5 MG 02-28 t} e 5 MG 00:00 :00 Finasteride Finasteride 2022- No 1{table QD Finasterid 5 MG 5 MG 02-28 t} e 5 MG 00:00 :00 Finasteride Finasteride 2- No 1{table QD Finasterid 5 MG 5 MG 02-28 t} e 5 MG 00:00 :00 Spironolact Spironolact 2022- No Spironolac one 25 MG one 25 MG 02-08 tone 25 MG 00:00 :00 Spironolact Spironolact 2022- No Spironolac one 25 MG one 25 MG - tone 25 MG 00:00 :00 Spironolact Spironolact [...] Spironolac one 25 MG one 25 MG 04-11 tone 25 MG 00:00 :00 Spironolact Spironolact 2021- No Spironolac one 25 MG one 25 MG 14 tone 25 MG 00:00 :00 Tamsulosin Tamsulosin [...] 12-09 le} HCl 0.4 MG 00:00 :00 Finasteride Finasteride 2021- No 1{table QD Finasterid 5 MG 5 MG 25 t} e 5 MG 00:00 :00 Finasteride Finasteride 2021- No 1{table QD 5 MG 5 MG -25 t} 00:00 :00 Finasteride Finasteride 2021- No 1{table QD Finasterid 5 MG 5 MG 25 t} e 5 MG 00:00 :00 Finasteride Finasteride 2021- No 1{table QD Finasterid 5 MG 5 MG 25 t} e 5 MG 00:00 :00 Finasteride Finasteride 2021- No 1{table QD 5 MG 5 MG 01-25 t} 00:00 :00 Finasteride Finasteride 2021- No 1{table QD Finasterid 5 MG 5 MG -25 t} e 5 MG 00:00 :00 Finasteride Finasteride 2021- No 1{table QD Finasterid 5 MG 5 MG 01-25 t} e 5 MG 00:00 :00 Finasteride Finasteride 2021- No 1{table QD Finasterid 5 MG 5 MG -25 t} e 5 MG 00:00 :00 Finasteride Finasteride 2021- No 1{table QD Finasterid 5 MG 5 MG -25 t} e 5 MG 00:00 :00 Immunizations Ordered Immunization Filled Immunization Date Status Commen ts Source Name Name FluAD FluAD 2021-08-13 Completed [facility] 11:08:00 - [facility] FluAD FluAD 2021-08-13 Completed [facility] 11:08: - [facility] FluAD FluAD 2021-08-13 Completed [facility] 11:08: - [facility] FluAD FluAD 2021-08-13 Completed [facility] 11:08: - [facility] FluAD FluAD 2021-08-13 Completed [facility] 11:08: - [facility] FluAD FluAD 2021-08-13 Completed [facility] 11:08: - [facility] FluAD FluAD 2021-08-13 Completed [facility] 11:08: - [facility] FluAD FluAD 2021-08-13 Completed [facility] 11:08: - [facility] FluAD FluAD 2021-08-13 Completed [facility] 11:08:00 - [facility] FluAD FluAD 2021-08-13 Completed [facility] 11:08: - [facility] FluAD FluAD 2021-08-13 Completed [facility] 11:08: - [facility] FluAD FluAD 2021-08-13 Completed [facility] 11:08: - [facility] FluAD FluAD 2021-08-13 Completed [facility] 11:08:00 - [facility] FluAD FluAD 2021-08-13 Completed [facility] 11:08:00 - [facility] FluAD FluAD 2021-08-13 Completed [facility] 11:08: - [facility] FluAD FluAD 2021-08-13 Completed [facility] 11:08: - [facility] FluAD FluAD 2021-08-13 Completed [facility] 11:08: - [facility] FluAD FluAD 2021-08-13 Completed [facility] 11:08: - [facility] FluAD FluAD 2021-08-13 Completed [facility] 11:08: - [facility] FluAD FluAD 2021-08-13 Completed [facility] 11:: - [facility] FluAD FluAD 2021-08-13 Completed [facility] 11:08: - [facility] FluAD FluAD 2021-08-13 Completed [facility] 11:: - [facility] FluAD FluAD 2021-08-13 Completed [facility] 11:: - [facility] FluAD FluAD 2021-08-13 Completed [facility] 11:: - [facility] FluAD FluAD 2021-08-13 Completed [facility] 11:: - [facility] FluAD FluAD 2021-08-13 Completed [facility] 11:: - [facility] FluAD FluAD 2021-08-13 Completed [facility] 11:: - [facility] FluAD FluAD 2021-08-13 Completed [facility] 11:08: - [facility] FluAD FluAD 2021-08-13 Completed [facility] 11:08: - [facility] FluAD FluAD 2021-08-13 Completed [facility] 11:08: - [facility] FluAD FluAD 2021-08-13 Completed [facility] 11:: - [facility] FluAD FluAD 2021-08-13 Completed [facility] 11:08: - [facility] FluAD FluAD 2021-08-13 Completed [facility] 11:08: - [facility] FluAD FluAD 2021-08-13 Completed [facility] 11:08:00 - [facility] FluAD FluAD 2021-08-13 Completed [facility] 11:08:00 - [facility] FluAD FluAD 2021-08-13 Completed [facility] 11:08:00 - [facility] FluAD FluAD 2020-10-01 Completed [facility] 08[facility]30:00 - [facility] FluAD FluAD 2020-10-01 Completed [facility] 08:30:00 - [facility] FluAD FluAD 2020-10-01 Completed [facility] 08:30:00 - [facility] FluAD FluAD 2020-10-01 Completed [facility] 08:30:00 - [facility] FluAD FluAD 2020-10-01 Completed [facility] 08:30:00 - [facility] FluAD FluAD 2020-10-01 Completed [facility] 08:30:00 - [facility] FluAD FluAD 2020-10-01 Completed [facility] 08:30:00 - [facility] FluAD FluAD 2020-10-01 Completed [facility] 08:30:00 - [facility] FluAD FluAD 2020-10-01 Completed [facility] 08:30:00 - [facility] FluAD FluAD 2020-10-01 Completed [facility] 08:30:00 - [facility] FluAD FluAD 2020-10-01 Completed [facility] 08:30:00 - [facility] FluAD FluAD 2020-10-01 Completed [facility] 08:30:00 - [facility] FluAD FluAD 2020-10-01 Completed [facility] 08:30:00 - [facility] FluAD FluAD 2020-10-01 Completed [facility] 08:30:00 - [facility] FluAD FluAD 2020-10-01 Completed [facility] 08:30:00 - [facility] FluAD FluAD 2020-10-01 Completed [facility] 08:30:00 - [facility] FluAD FluAD 2020-10-01 Completed [facility] 08:30:00 - [facility] FluAD FluAD 2020-10-01 Completed [facility] 08:30:00 - [facility] FluAD FluAD 2020-10-01 Completed [facility] 08:30:00 - [facility] FluAD FluAD 2020-10-01 Completed [facility] 08:30:00 - [facility] FluAD FluAD 2020-10-01 Completed [facility] 08:30:00 - [facility] FluAD FluAD 2020-10-01 Completed [facility] 08:30:00 - [facility] FluAD FluAD 2020-10-01 Completed [facility] 08:30:00 - [facility] FluAD FluAD 2020-10-01 Completed [facility] 08:30:00 - [facility] FluAD FluAD 2020-10-01 Completed [facility] 08:30:00 - [facility] FluAD FluAD 2020-10-01 Completed [facility] 08:30:00 - [facility] FluAD FluAD 2020-10-01 Completed [facility] 08:30:00 - [facility] FluAD FluAD 2020-10-01 Completed [facility] 08:30:00 - [facility] FluAD FluAD 2020-10-01 Completed [facility] 08:30:00 - [facility] FluAD FluAD 2020-10-01 Completed [facility] 08:30:00 - [facility] FluAD FluAD 2020-10-01 Completed [facility] 08:30:00 - [facility] FluAD FluAD 2020-10-01 Completed [facility] 08:30:00 - [facility] FluAD FluAD 2020-10-01 Completed [facility] 08:30:00 - [facility] FluAD FluAD 2020-10-01 Completed [facility] 08:30:00 - [facility] FluAD FluAD 2020-10-01 Completed [facility] 08:30:00 - [facility] FluAD FluAD 2020-10-01 Completed [facility] 08:30:00 - [facility] FluAD FluAD 2020-10-01 Completed [facility] 08:30:00 - [facility] PNEUMAVAX 23 PNEUMAVAX 23 2019-10-12 [facility]pleted [facility] 08:59:00 - [facility] PNEUMAVAX 23 PNEUMAVAX 23 2019-10-12 Completed [facility] 08:59:00 - [facility] PNEUMAVAX 23 PNEUMAVAX 2019-10-12 Completed [facility] 08:59:00 [facility] PNEUMAVAX 23 PNEUMAVAX 2019-10-12 Completed [facility] 08:59:00 [facility] PNEUMAVAX 23 PNEUMAVAX 2019-10-12 Completed [facility] 08:59:00 - [facility] PNEUMAVAX 23 PNEUMAVAX 2019-10-12 Completed [facility] 08:59:00 [facility] PNEUMAVAX 23 PNEUMAVAX 2019-10-12 Completed [facility] 08:59:00 [facility] PNEUMAVAX 23 PNEUMAVAX 2019-10-12 Completed [facility] 08:59:00 [facility] PNEUMAVAX 23 PNEUMAVAX 2019-10-12 Completed [facility] 08:59:00 - [facility] PNEUMAVAX 23 PNEUMAVAX 2019-10-12 Completed [facility] 08:59:00 [facility] PNEUMAVAX 23 PNEUMAVAX 2019-10-12 Completed [facility] 08:59:00 [facility] PNEUMAVAX 23 PNEUMAVAX 2019-10-12 Completed [facility] 08:59:00 [facility] PNEUMAVAX 23 PNEUMAVAX 2019-10-12 Completed [facility] 08:59:00 [facility] PNEUMAVAX 23 PNEUMAVAX 2019-10-12 Completed [facility] 08:59:00 [facility] PNEUMAVAX 23 PNEUMAVAX 2019-10-12 Completed [facility] 08:59:00 [facility] PNEUMAVAX 23 PNEUMAVAX 2019-10-12 Completed [facility] 08:59:00 [facility] PNEUMAVAX 23 PNEUMAVAX 2019-10-12 Completed [facility] 08:59:00 [facility] PNEUMAVAX 23 PNEUMAVAX 2019-10-12 Completed [facility] 08:59:00 [facility] PNEUMAVAX 23 PNEUMAVAX 2019-10-12 Completed [facility] 08:59:00 - [facility] PNEUMAVAX 23 PNEUMAVAX 2019-10-12 Completed [facility] 08:59:00 [facility] PNEUMAVAX 23 PNEUMAVAX 2019-10-12 Completed [facility] 08:59:00 [facility] PNEUMAVAX 23 PNEUMAVAX 2019-10-12 Completed [facility] 08:59:00 - [facility] PNEUMAVAX 23 PNEUMAVAX 2019-10-12 Completed [facility] 08:59:00 - [facility] PNEUMAVAX 23 PNEUMAVAX 2019-10-12 Completed [facility] 08:59:00 [facility] PNEUMAVAX 23 PNEUMAVAX 2019-10-12 Completed [facility] 08:59:00 [facility] PNEUMAVAX 23 PNEUMAVAX 2019-10-12 Completed [facility] 08:59:00 - [facility] PNEUMAVAX 23 PNEUMAVAX 2019-10-12 Completed [facility] 08:59:00 [facility] PNEUMAVAX 23 PNEUMAVAX 2019-10-12 Completed [facility] 08:59:00 [facility] PNEUMAVAX 23 PNEUMAVAX 2019-10-12 Completed [facility] 08:59:00 [facility] PNEUMAVAX 23 PNEUMAVAX 2019-10-12 Completed [facility] 08:59:00 [facility] PNEUMAVAX 23 PNEUMAVAX 2019-10-12 Completed [facility] 08:59:00 [facility] PNEUMAVAX 23 PNEUMAVAX 2019-10-12 Completed [facility] 08:59:00 [facility] PNEUMAVAX 23 PNEUMAVAX 2019-10-12 Completed [facility] 08:59:00 [facility] PNEUMAVAX 23 PNEUMAVAX 2019-10-12 Completed [facility] 08:59:00 [facility] PNEUMAVAX 23 PNEUMAVAX 2019-10-12 Completed [facility] 08:59:00 [facility] PNEUMAVAX 23 PNEUMAVAX 2019-10-12 Completed [facility] 08:59:00 - [facility] PNEUMAVAX 23 PNEUMAVAX 23 2019-10-12 Completed [facility] 08:59:00 - [facility] Flucelvax - Flucelvax - 2019-09-19 [facility]pleted [facility] multidose vial multidose vial 09:29:00 - [facility] Flucelvax - Flucelvax - 2019-09-19 Completed [facility] multidose vial multidose vial 09:29:00 - [facility] Flucelvax - Flucelvax - 2019-09-19 Com[facility] multidose vial multidose vial 09:29:00 - [facility] Flucelvax - Flucelvax - 2019-09-19 Com[facility] multidose vial multidose vial 09:29:00 - [facility] Flucelvax - Flucelvax - 2019-09-19 [facility] multidose vial multidose vial 09:29:00 - [facility] Flucelvax - Flucelvax - 2019-09-19 Completed [facility] multidose vial multidose vial 09:29:00 - [facility] Flucelvax - Flucelvax - 2019-09-19 Completed [facility] multidose vial multidose vial 09:29:00 - [facility] Flucelvax - Flucelvax - 2019-09-19 Com[facility] multidose vial multidose vial 09:29:00 - [facility] Flucelvax - Flucelvax - 2019-09-19 Completed [facility] multidose vial multidose vial 09:29:00 - [facility] Flucelvax - Flucelvax - 2019-09-19 Completed [facility] multidose vial multidose vial 09:29:00 - [facility] Flucelvax - Flucelvax - 2019-09-19 Completed [facility] multidose vial multidose vial 09:29:00 - [facility] Flucelvax - Flucelvax - 2019-09-19 Completed [facility] multidose vial multidose vial 09:29:00 - [facility] Flucelvax - Flucelvax - 2019-09-19 Completed [facility] multidose vial multidose vial 09:29:00 - [facility] Flucelvax - Flucelvax - 2019-09-19 Completed [facility] multidose vial multidose vial 09:29:00 - [facility] Flucelvax - Flucelvax - 2019-09-19 Completed [facility] multidose vial multidose vial 09:29:00 - [facility] Flucelvax - Flucelvax - 2019-09-19 Completed [facility] multidose vial multidose vial 09:29:00 - [facility] Flucelvax - Flucelvax - 2019-09-19 Completed [facility] multidose vial multidose vial 09:29:00 - [facility] Flucelvax - Flucelvax - 2019-09-19 Completed [facility] multidose vial multidose vial 09:29:00 - [facility] Flucelvax - Flucelvax - 2019-09-19 Completed [facility] multidose vial multidose vial 09:29:00 - [facility] Flucelvax - Flucelvax - 2019-09-19 Completed [facility] multidose vial multidose vial 09:29:00 - [facility] Flucelvax - Flucelvax - 2019-09-19 Completed [facility] multidose vial multidose vial 09:29:00 - [facility] Flucelvax - Flucelvax - 2019-09-19 Completed [facility] multidose vial multidose vial 09:29:00 - [facility] Flucelvax - Flucelvax - 2019-09-19 Completed [facility] multidose vial multidose vial 09:29:00 - [facility] Flucelvax - Flucelvax - 2019-09-19 Completed [facility] multidose vial multidose vial 09:29:00 - [facility] Flucelvax - Flucelvax - 2019-09-19 Completed [facility] multidose vial multidose vial 09:29:00 - [facility] Flucelvax - Flucelvax - 2019-09-19 Completed [facility] multidose vial multidose vial 09:29:00 - [facility] Flucelvax - Flucelvax - 2019-09-19 Completed [facility] multidose vial multidose vial 09:29:00 - [facility] Flucelvax - Flucelvax - 2019-09-19 Completed [facility] multidose vial multidose vial 09:29:00 - [facility] Flucelvax - Flucelvax - 2019-09-19 Completed [facility] multidose vial multidose vial 09:29:00 - [facility] Flucelvax - Flucelvax - 2019-09-19 Completed [facility] multidose vial multidose vial 09:29:00 - [facility] Flucelvax - Flucelvax - 2019-09-19 Completed [facility] multidose vial multidose vial 09:29:00 - [facility] Flucelvax - Flucelvax - 2019-09-19 Completed [facility] multidose vial multidose vial 09:29:00 - [facility] Flucelvax - Flucelvax - 2019-09-19 Com[facility] multidose vial multidose vial 09:29:00 - [facility] Flucelvax - Flucelvax - 2019-09-19 Completed [facility] multidose vial multidose vial 09:29:00 - [facility] Flucelvax - Flucelvax - 2019-09-19 Completed [facility] multidose vial multidose vial 09:29:00 - [facility] Flucelvax - Flucelvax - 2019-09-19 Completed [facility] multidose vial multidose vial 09:29:00 - [facility] Flucelvax - Flucelvax - 2019-09-19 Com[facility] multidose vial multidose vial 09:29:00 - [facility] FLUZONE HIGH DOSE FLUZONE HIGH DOSE 2018-07-25 Completed [facility] OVER 65 OVER 65 08:45:00 - [facility] FLUZONE HIGH DOSE FLUZONE HIGH DOSE 2018-07-25 Completed [facility] OVER 65 OVER 65 08:45:00 - [facility] FLUZONE HIGH DOSE FLUZONE HIGH DOSE 2018-07-25 Completed [facility] OVER 65 OVER 65 08:45:00 - [facility] FLUZONE HIGH DOSE FLUZONE HIGH DOSE 2018-07-25 Completed [facility] OVER 65 OVER 65 08:45:00 - [facility] FLUZONE HIGH DOSE FLUZONE HIGH DOSE 2018-07-25 Completed [facility] OVER 65 OVER 65 08:45:00 - [facility] FLUZONE HIGH DOSE FLUZONE HIGH DOSE 2018-07-25 Completed [facility] OVER 65 OVER 65 08:45:00 - [facility] FLUZONE HIGH DOSE FLUZONE HIGH DOSE 2018-07-25 Completed [facility] OVER 65 OVER 65 08:45:00 - [facility] FLUZONE HIGH DOSE FLUZONE HIGH DOSE 2018-07-25 Completed [facility] OVER 65 OVER 65 08:45:00 - [facility] FLUZONE HIGH DOSE FLUZONE HIGH DOSE 2018-07-25 Completed [facility] OVER 65 OVER 65 08:45:00 - [facility] FLUZONE HIGH DOSE FLUZONE HIGH DOSE 2018-07-25 Completed [facility] OVER 65 OVER 65 08:45:00 - [facility] FLUZONE HIGH DOSE FLUZONE HIGH DOSE 2018-07-25 Completed [facility] OVER 65 OVER 65 08:45:00 - [facility] FLUZONE HIGH DOSE FLUZONE HIGH DOSE 2018-07-25 Completed [facility] OVER 65 OVER 65 08:45:00 - [facility] FLUZONE HIGH DOSE FLUZONE HIGH DOSE 2018-07-25 Completed [facility] OVER 65 OVER 65 08:45:00 - [facility] FLUZONE HIGH DOSE FLUZONE HIGH DOSE 2018-07-25 Completed [facility] OVER 65 OVER 65 08:45:00 - [facility] FLUZONE HIGH DOSE FLUZONE HIGH DOSE 2018-07-25 Completed [facility] OVER 65 OVER 65 08:45:00 [facility] FLUZONE HIGH DOSE FLUZONE HIGH DOSE 2018-07-25 Completed [facility] OVER 65 OVER 65 08:45:00 - [facility] FLUZONE HIGH DOSE FLUZONE HIGH DOSE 2018-07-25 Completed [facility] OVER 65 OVER 65 08:45:00 - [facility] FLUZONE HIGH DOSE FLUZONE HIGH DOSE 2018-07-25 Completed [facility] OVER 65 OVER 65 08:45:00 - [facility] FLUZONE HIGH DOSE FLUZONE HIGH DOSE 2018-07-25 Completed [facility] OVER 65 OVER 65 08:45:00 [facility] FLUZONE HIGH DOSE FLUZONE HIGH DOSE 2018-07-25 Completed [facility] OVER 65 OVER 65 08:45:00 - [facility] FLUZONE HIGH DOSE FLUZONE HIGH DOSE 2018-07-25 Completed [facility] OVER 65 OVER 65 08:45:00 - [facility] FLUZONE HIGH DOSE FLUZONE HIGH DOSE 2018-07-25 Completed [facility] OVER 65 OVER 65 08:45:00 - [facility] FLUZONE HIGH DOSE FLUZONE HIGH DOSE 2018-07-25 Completed [facility] OVER 65 OVER 65 08:45:00 - [facility] FLUZONE HIGH DOSE FLUZONE HIGH DOSE 2018-07-25 Completed [facility] OVER 65 OVER 65 08:45:00 - [facility] FLUZONE HIGH DOSE FLUZONE HIGH DOSE 2018-07-25 Completed [facility] OVER 65 OVER 65 08:45:00 - [facility] FLUZONE HIGH DOSE FLUZONE HIGH DOSE 2018-07-25 Completed [facility] OVER 65 OVER 65 08:45:00 [facility] FLUZONE HIGH DOSE FLUZONE HIGH DOSE 2018-07-25 Completed [facility] OVER 65 OVER 65 08:45:00 - [facility] FLUZONE HIGH DOSE FLUZONE HIGH DOSE 2018-07-25 Completed [facility] OVER 65 OVER 65 08:45:00 [facility] FLUZONE HIGH DOSE FLUZONE HIGH DOSE 2018-07-25 Completed [facility] OVER 65 OVER 65 08:45:00 [facility] FLUZONE HIGH DOSE FLUZONE HIGH DOSE 2018-07-25 Completed [facility] OVER 65 OVER 65 08:45:00 [facility] FLUZONE HIGH DOSE FLUZONE HIGH DOSE 2018-07-25 Completed [facility] OVER 65 OVER 65 08:45:00 [facility] FLUZONE HIGH DOSE FLUZONE HIGH DOSE 2018-07-25 Completed [facility] OVER 65 OVER 65 08:45:00 - [facility] FLUZONE HIGH DOSE FLUZONE HIGH DOSE 2018-07-25 Completed [facility] OVER 65 OVER 65 08:45:00 - [facility] FLUZONE HIGH DOSE FLUZONE HIGH DOSE 2018-07-25 Completed [facility] OVER 65 OVER 65 08:45:00 - [facility] FLUZONE HIGH DOSE FLUZONE HIGH DOSE 2018-07-25 Completed [facility] OVER 65 OVER 65 08:45:00 - [facility] FLUZONE HIGH DOSE FLUZONE HIGH DOSE 2018-07-25 Completed [facility] OVER 65 OVER 65 08:45:00 - [facility] FLUZONE HIGH DOSE FLUZONE HIGH DOSE 2018-07-25 Completed [facility] OVER 65 OVER 65 08:45:00 - [facility] Vital Signs Vital Name Observation Time Observation Value Comments Source height 2022-08-30 71.5 [in_i] [facility] - 09:30:00 [facility] weight 2022-08-30 174.2 [lb_av] [facility] - 09:30:00 [facility] temperature 2022-08-30 97.5 [degF] [facility] - 09:30:00 [facility] bmi 2022-08-30 23.95 kg/m2 [facility] - 09:30:00 [facility] oximetry 2022-08-30 99 % [facility] - 09:30:00 [facility] respiratory rate 2022-08-30 18 /min [facility] - 09:30:00 [facility] blood pressure 2022-08-30 130 mm[Hg] [facility] - systolic 09:30:00 [facility] blood pressure 2022-08-30 72 mm[Hg] [facility] - diastolic 09:30:00 [facility] height 2022-05-28 71.5 [in_i] [facility] - 08:50:00 [facility] weight 2022-05-28 174.8 [lb_av] [facility] - 08:50:00 [facility] temperature 2022-05-28 97.0 [degF] [facility] - 08:50:00 [facility] bmi 2022-05-28 24.04 kg/m2 [facility] - 08:50:00 [facility] oximetry 2022-05-28 98 % [facility] - 08:50:00 [facility] respiratory rate 2022-05-28 18 /min [facility] - 08:50:00 [facility] blood pressure 2022-05-28 95 mm[Hg] [facility] - systolic 08:50:00 [facility] blood pressure 2022-05-28 58 mm[Hg] [facility] - diastolic 08:50:00 [facility] height 2022-02-24 71.5 [in_i] [facility] - 11:30:00 [facility] weight 2022-02-24 173.7 [lb_av] [facility] - 11:30:00 [facility] temperature 2022-02-24 98.1 [degF] [facility] - 11:30:00 [facility] bmi 2022-02-24 23.89 kg/m2 [facility] - 11:30:00 [facility] oximetry 2022-02-24 98 % [facility] - 11:30:00 [facility] respiratory rate 2022-02-24 17 /min [facility] - 11:30:00 [facility] blood pressure 2022-02-24 110 mm[Hg] [facility] - systolic 11:30:00 [facility] blood pressure 2022-02-24 76 mm[Hg] [facility] - diastolic 11:30:00 [facility] height 2021-11-23 71.5 [in_i] [facility] - 15:00:00 [facility] weight 2021-11-23 191.3 [lb_av] [facility] - 15:00:00 [facility] temperature 2021-11-23 98.2 [degF] [facility] - 15:00:00 [facility] bmi 2021-11-23 26.31 kg/m2 [facility] - 15:00:00 [facility] oximetry 2021-11-23 97 % [facility] - 15:00:00 [facility] respiratory rate 2021-11-23 17 /min [facility] - 15[facility]00:00 [facility] blood pressure 2021-11-23 119 mm[Hg] [facility] - systolic 15:00:00 [facility] blood pressure 2021-11-23 62 mm[Hg] [facility] - diastolic 15:00:00 [facility] height 2021-11-23 71.5 [in_i] [facility] - 14:20:00 [facility] weight 2021-11-23 191.3 [lb_av] [facility] - 14:20:00 [facility] temperature 2021-11-23 98.2 [degF] [facility] - 14:20:00 [facility] bmi 2021-11-23 26.31 kg/m2 [facility] - 14:20:00 [facility] oximetry 2021-11-23 97 % [facility] - 14:20:00 [facility] blood pressure 2021-11-23 89 mm[Hg] [facility] - systolic 14:20:00 [facility] blood pressure 2021-11-23 61 mm[Hg] [facility] - diastolic 14:20:00 [facility] height 2021-08-13 71.5 [in_i] [facility] - 10:10:00 [facility] weight 2021-08-13 179.1 [lb_av] [facility] - 10:10:00 [facility] temperature 2021-08-13 97.2 [degF] [facility] - 10:10:00 [facility] bmi 2021-08-13 24.63 kg/m2 [facility] - 10:10:00 [facility] oximetry 2021-08-13 98 % [facility] - 10:10:00 [facility] respiratory rate 2021-08-13 16 /min [facility] - 10:10:00 [facility] blood pressure 2021-08-13 91 mm[Hg] [facility] - systolic 10:10:00 [facility] blood pressure 2021-08-13 56 mm[Hg] [facility] - diastolic 10:10:00 [facility] Systolic blood 2021-12-10 110 mm[Hg] [facility] pressure 13:02:00 Hospital Diastolic blood 2021-12-10 59 mm[Hg] [facility] pressure 13:02:00 Hospital Heart rate 2021-12-10 85 /min [facility] 13:02:00 Hospital Body temperature 2021-12-10 36.22 [facility] 13:02:00 Hospital Respiratory rate 2021-12-10 16 /min [facility] 13:02:00 Hospital Oxygen saturation 2021-12-10 96 /min [facility] in Arterial blood 13:02: [facility] by Pulse oximetry Body height 2021-12-10 180.3 cm [facility] 01:00:00 Hospital Body weight 2021-12-10 86.186 kg [facility] 01:00:00 [facility] BMI 2021-12-10 26.50 kg/m2 [facility] 01:00:00 [facility] Temperature Oral 2020-12-21 98.0 F [facility] (F) 14:00:00 Heart Rate 2020-12-21 [facility] 14:[facility] Respitory Rate 2020-12-21 [facility] 14:00:00 Systolic (mm Hg) 2020-12-21 [facility] 14:00:00 Diastolic (mm Hg) 2020-12-21 [facility] 14:00:00 Respitory Rate 2020-12-21 [facility] 13:31:00 Temperature Oral 2020-12-21 98.6 [facility] (F) 10:00:00 Heart Rate 2020-12-21 [facility] 10:00:00 Respitory Rate 2020-12-21 [facility] 10:00:00 Systolic (mm Hg) 2020-12-21 [facility] 10:00:00 Diastolic (mm Hg) 2020-12-21 [facility] 10:00:00 Temperature Oral 2020-12-21 97.8 [facility] (F) 06:00:00 Heart Rate 2020-12-21 [facility] 06:00:00 Systolic (mm Hg) 2020-12-21 [facility] 06:00:00 Diastolic (mm Hg) 2020-12-21 [facility] 06:00:00 Height 2020-12-18 180.34 cm [facility] 11:48:00 Height 2020-12-12 180.34 cm [facility] 23:48:00 Weight 2020-12-12 [facility] 23:48:00 BMI Calculated 2020-12-12 [facility] 23:48:00 Systolic blood 2020-12-12 113 mm[Hg] Location: [facility] Physicia ns pressure 13:14:00 Position: Sitting Diastolic blood 2020-12-12 75 mm[Hg] Location: [facility] Physici ans pressure 13:14:00 Position: Sitting Body height 2020-12-12 72 [in_us] [facility] 13:14:00 Weight 2020-12-12 169 [lb_av] [facility] 13:14:00 Body mass index 2020-12-12 22.92 kg/m2 [facility] (BMI) [Ratio] 13:14:00 Heart Rate 2020-12-12 106 /min Location: [facility] 13:14:00 Radial; Quality: Normal Temperature Oral 2020-11-23 97.9 F [facility] rmann (F) 18:00:00 Heart Rate 2020-11-23 [facility] 18:00:00 Respitory Rate 2020-11-23 [facility] 18:00:00 Systolic (mm Hg) 2020-11-23 [facility] 18:00:00 Diastolic (mm Hg) 2020-11-23 [facility] 18:00:00 Temperature Oral 2020-11-23 97.4 F [facility] Jeyson rmann (F) 14:00:00 Heart Rate 2020-11-23 [facility] 14:00:00 Respitory Rate 2020-11-23 [facility] 14:00:00 Systolic (mm Hg) 2020-11-23 [facility] 14:00:00 Diastolic (mm Hg) 2020-11-23 [facility] 14:00:00 Respitory Rate 2020-11-23 [facility] 13:54:00 Temperature Oral 2020-11-23 97.8 [facility] (F) 10:00:00 Heart Rate 2020-11-23 [facility] 16:17:00 Height 2018-08-30 182.88 cm [facility] 18:25:00 Weight 2018-08-30 [facility] 18:25:00 BMI Calculated 2018-08-30 [facility] 18:25:00 Systolic (mm Hg) 2018-08-30 [facility] 18:25:00 Diastolic (mm Hg) 2018-08-30 [facility] 18:25:00 Heart Rate 2018-08-30 [facility] 18:25:00 Procedures Procedure Date / Time Performing Clinician Source Performed ECG PRE/POST OP 2021-12-10 10:53:56 Dexter, Nad[facility] XR CHEST 1 VW PORTABLE 2021-12-09 20:00:00 Dexter, [facility] EP AICD IMPLANT SINGLE 2021-12-09 18:59:06 Dexter, [facility] DUAL BI VENT ESTIMATED GFR 2021-12-09 15:51:00 [facility]terAma [facility] POC PANEL 2021-12-09 15:51:00 DexterAma nieves spital TYPE AND SCREEN 2021-12-09 15:43:00 Dexter, Ama [facility] ECG 12-LEAD 2021-12-09 15:19:29 Dexter [facility] sp[facility] COVID-19 QUALITATIVE 2021-12-07 16:25:00 Dexter, [facility] RT-PCR COVID-19 OMICRON VARIANT 2021-12-07 16:25:00 Dexter, [facility] QUALITATIVE RT-PCR PROTHROMBIN TIME WITH INR 2021-12-07 16:25:00 Dexter, [facility] MAGNESIUM LEVEL 2021-12-07 16:25:00 Dexter [facility] spital HC COMPLETE BLD COUNT 2021-12-07 16:25:00 Dexter, [facility]/AUTO DIFF COMPREHENSIVE METABOLIC 2021-12-07 [facility] GFR 2021-12-07 16:25:00 Dexter [facility] spital COVID-19 QUALITATIVE 2021-11-24 18:09:00 Dexter, [facility] RT-PCR COVID-19 OMICRON VARIANT 2021-11-24 18:09:00 Dexter, [facility] QUALITATIVE RT-PCR PROTHROMBIN TIME WITH INR 2021-11-24 [facility] 2021-11-24 18:09:00 Dexter Amadou [facility] HC COMPLETE BLD COUNT 2021-11-24 18:09:00 Dexter, [facility] W/AUTO DIFF COMPREHENSIVE METABOLIC 2021-11-24 18:09:00 Dexter, [facility] PANEL ESTIMATED GFR 2021-11-24 18:09:00 DexterAma [facility] [QL] B TYPE NATRIURETIC 2020-12-26 00:00:00 [facility] PEPTIDE (BNP) [QL] BASIC METABOLIC 2020-12-26 00:00:00 [facility] PANEL W/EGFR [QL] CBC (INCLUDES 2020-12-26 00:00:00 [facility] DIFF/PLT) [QL] MAGNESIUM 2020-12-26 00:00:00 [facility] Plan of Care Planned Activity Planned Date Details Comments Source Future Scheduled 2022-10-16 Hepatitis C screening [facility] Test 09:20:09 (procedure) [code = 942541327] Future Scheduled 2022-10-16 SHINGLES VACCINES (1 Met [facility] Test 09:20:09 of 2) [code = SHINGLES VACCINES (1 of 2)] Future Scheduled 2022-10-16 65+ PNEUMOCOCCAL [facility] Test 09:20:09 VACCINE (2 - PCV) [code = 65+ PNEUMOCOCCAL VACCINE (2 - PCV)] Future Scheduled 2022-10-16 COVID-19 VACCINE (4 - [facility] Test 09:20:09 Booster for Moderna series) [code = COVID-19 VACCINE (4 - Booster for Moderna series)] Future Scheduled 2022-10-16 INFLUENZA VACCINE Method [facility] Test 09:20:09 [code = INFLUENZA VACCINE] Future Scheduled 2022-09-04 HEPATITIS B VACCINES Met [facility] Test 23:01:03 (1 of 3 - 3-dose series) [code = HEPATITIS B VACCINES (1 of 3 - 3-dose series)] Future Scheduled 2022-09-04 Hepatitis C screening [facility] Test 23:01:03 (procedure) [code = [id number]] Future Scheduled 2022-09-04 SHINGLES VACCINES (1 Met [facility] Test 23:01:03 of 2) [code = SHINGLES VACCINES (1 of 2)] Future Scheduled 2022-09-04 65+ PNEUMOCOCCAL [facility] Test 23:01:03 VACCINE (2 - PCV) [code = 65+ PNEUMOCOCCAL VACCINE (2 - PCV)] Future Scheduled 2022-09-04 COVID-19 VACCINE (4 - [facility] Test 23:01:03 Booster for Moderna series) [code = COVID-19 VACCINE (4 - Booster for Moderna series)] Future Scheduled 2022-09-04 INFLUENZA VACCINE [facility] Test 23:01:03 [code = INFLUENZA VACCINE] Future Scheduled 2021-12-01 Hepatitis C screening [facility] Test 11:08:12 (procedure) [code = 957656927] Future Scheduled 2021-12-01 COLONOSCOPY SCREENING [facility] Test 11:08:12 [code = COLONOSCOPY SCREENING] Future Scheduled 2021-12-01 SHINGLES VACCINES (#1) [facility] Test 11:08:12 [code = SHINGLES VACCINES (#1)] Future Scheduled 2021-12-01 65+ [facility]OCOCCAL [facility] Test 11:08:12 VACCINE (2 of 2 - PCV13) [code = 65+ PNEUMOCOCCAL VACCINE (2 of 2 - PCV13)] Future Scheduled 2021-12-01 INFLUENZA VACCINE Method [facility] Test 11:08:12 [code = INFLUENZA VACCINE] Encounters Start End Encounter Admission Attending Care Care Encounter Source Date/Time Date/Time Type Type Clinicians Facility Department ID 2022-08-26 Outpatient Bajwa, [facility] [id number] Common 08:49:02 [facility] 2022-07-28 Outpatient [facility] [id number] [place] 11:30:33 [id number] [facility] 2022-05-24 Outpatient [facility] [id number] [place] 14:34:37 [id number] [facility] 2021-11-25 [facility] [id number] Common 14:38:53 [facility] 2021-11-25 [facility] [id number] Common 13:27:14 [facility] 2021-11-25 [facility] [id number] Common 13:24:00 [facility] [address] [facility] 2021-11-25 [facility] [id number] Common 12:52:34 [facility] [address] [facility] 2021-11-25 Outpatient Bajwa, STLMLC STLMLC Common 12:51:57 [place] [address] [facility] 2021-11-25 Outpatient Bajwa, STLMLC STLMLC [id number] Common 12:47:01 [place] [address] [facility] 2021-11-25 Outpatient Bajwa, STLMLC STLMLC [id number] Common 12:46:07 [place] [address] [facility] 2021-11-25 Outpatient Bajwa, STLMLC STLMLC Common 12:35:50 [place] [address] [facility] 2021-11-25 Outpatient Bajwa, STLMLC STLMLC Common 12:35:15 [place] [address] [facility] 2021-11-25 Outpatient Bajwa, STLMLC STLMLC Common 12:34:46 [place] [address] [facility] 2021-11-25 Outpatient Bajwa, STLMLC STLMLC Common 12:26:46 [place] [address] [facility] 2021-11-25 Outpatient Bajwa, STLMLC STLMLC Common 12:17:50 [place] [address] [facility] 2021-11-25 Outpatient Bajwa, STLMLC STLMLC Common 11:54:35 [place] [address] [facility] 2021-11-25 Outpatient Bajwa, STLMLC STLMLC Common 11:19:57 [place] [address] [facility] 2021-11-25 Outpatient Bajwa, STLMLC STLMLC Common 11:18:08 [place] [address] [facility] 2021-11-25 Outpatient Bajwa, STLMLC STLMLC [id number] Common 10:59:28 [place] [address] [facility] 2022-09-14 2022-09-14 (WEB) STLMLC STLMLC [id number] Co mmon 00:00:00 00:00:00 [facility] 2022-09-13 2022-09-13 (WEB) STLMLC STLMLC [id number] Co mmon 00:00:00 00:00:00 [facility] 2022-09-13 2022-09-13 (TEL) STLMLC STLMLC [id number] Co mmon 00:00:00 00:00:00 [facility] 2022-08-30 2022-08-30 OFFICE STLMLC STLMLC [id number] Co mmon 00:00:00 00:00:00 VISIT [facility] LEVEL 4 [facility] 2022-08-16 2022-08-16 (WEB) STLMLC STLMLC [id number] Co mmon 00:00:00 00:00:00 [facility] 2022-07-19 2022-07-19 (WEB) STLMLC STLMLC [id number] Co mmon 00:00:00 00:00:00 [facility] 2022-07-12 2022-07-12 (WEB) STLMLC STLMLC [id number] Co mmon 00:00:00 00:00:00 [facility] 2022-07-07 2022-07-07 (WEB) STLMLC STLMLC [id number] Co mmon 00:00:00 00:00:00 [facility] 2022-07-02 2022-07-02 (WEB) STLMLC STLMLC [id number] Co mmon 00:00:00 00:00:00 [facility] 2022-06-22 2022-06-22 Community Dexter, 1.2.840.1 [id number] Methodi 00:00:00 00:00:00 Orders Nadim 80291.1.[address] 3.430.2.7 Hospit a .3.671272 l .8 2022-06-22 2022-06-22 Community Dexter, 1.2.840.1 [id number] 2100 [id number] Methodi 00:00:00 00:00:00 Orders Nadim 96708.1.[address] 3.430.2.7 Hospit a .3.565554 l .8 2022-06-22 2022-06-22 (WEB) STLMLC STLMLC [id number] Co mmon 00:00:00 00:00:00 [facility] 2022-05-28 2022-05-28 OFFICE STLMLC STLMLC [id number] Co mmon 00:00:00 00:00:[address] 2022-05-15 2022-05-15 (WEB) STLMLC STLMLC [id number] Co mmon 00:00:00 00:00:00 [facility] 2022-03-23 2022-03-23 (WEB) STLMLC STLMLC [id number] Co mmon 00:00:00 00:00:00 [facility] 2022-03-05 2022-03-05 (TEL) STLMLC STLMLC [id number] Co mmon 00:00:00 00:00:00 [facility] 2022-03-04 2022-03-04 (WEB) STLMLC STLMLC [id number] Co mmon 00:00:00 00:00:00 [facility] 2022-02-24 2022-02-24 OFFICE STLMLC STLMLC [id number] Co mmon 00:00:00 00:00:[address] 2022-02-19 2022-02-19 (WEB) STLMLC STLMLC [id number] Co mmon 00:00:00 00:00:00 [facility] 2022-02-03 2022-02-03 (TEL) STLMLC STLMLC [id number] Co mmon 00:00:00 00:00:00 [facility] 2022-02-03 2022-02-03 (WEB) STLMLC STLMLC [id number] Co mmon 00:00:00 00:00:00 [facility] 2022-02-02 2022-02-02 (WEB) STLMLC STLMLC [id number] Co mmon 00:00:00 00:00:00 [facility] 2021-12-21 2021-12-21 Outpatient COH COH PDPFFPN YGR COH 00:00:00 00:00:00 [id number] 2021-12-21 2021-12-21 (WEB) STLMLC STLMLC [id number] Co mmon 00:00:00 00:00:00 [facility] 2021-12-11 2021-12-11 Patient Tico, 1.2.840.1 [id number] Methodi 00:00:00 00:00:00 Outreach Deann 61617.1.[address] 3.430.2.7 Hospit a .3.529272 l .8 2021-12-11 2021-12-11 Patient Tico, 1.2.840.1 [id number] Methodi 00:00:00 00:00:00 Outreach Deann 97546.1.[address] 3.430.2.7 Hospit a .3.490570 l .8 2021-12-09 2021-12-10 [facility] 1.2.840.1 [id number] Methodi 08:54:00 09:53:00 Encounter Nadim 75533.1.[address] 3.430.2.7 Hospit a .3.056399 l .8 2021-12-09 2021-12-10 [facility] 1.2.840.1 [id number] Methodi 08:54:00 09:53:00 Encounter Nadim 25445.1.[address] 3.430.2.7 Hospit a .3.946446 l .8 2021-12-09 2021-12-09 Anesthesia Schaefer, 1.2.840.1 [id number] Methodi 10:50:00 13:25:00 Event Jennifer 45766.1.[address] Valentin 3.430.2.7 Hospit a .3.191275 l .8 2021-12-09 2021-12-09 Anesthesia Schaefer, 1.2.840.1 [id number] Methodi 10:50:00 13:25:00 Event Jennifer 80463.1.[address] Valentin 3.430.2.7 Hospit a .3.624362 l .8 2021-12-09 2021-12-09 Surgery Dexter, 1.2.840.1 [id number] 1806 Methodi 10:30:00 12:10:[address] 3.430.2.7 Hospit a .3.840822 l .8 2021-12-09 2021-12-09 Surgery Dexter, 1.2.840.1 [id number] 3011 Methodi 10:30:00 12:10:[address] 3.430.2.7 Hospit a .3.545593 l .8 2021-12-09 2021-12-09 Travel 1.2.840.1 1.2.319.119 8475 [id number] Methodi 00:00:00 00:00:[address] 3.430.2.7 0.2.7.3.698 Ho spita .3.389983 084.8 l .8 2021-12-09 2021-12-09 Travel 1.2.840.1 1.2.011.863 3330 [id number] Methodi 00:00:00 00:00:[address] 3.430.2.7 0.2.7.3.698 Ho spita .3.651181 084.8 l .8 2021-12-07 2021-12-07 Lab Dexter, 1.2.840.1 [id number] 7384 Methodi 09:55:00 10:00:[address] 3.430.2.7 Hospit a .3.334452 l .8 2021-12-07 2021-12-07 Lab Dexter, 1.2.840.1 [id number] 035214 0949 Methodi 09:55:00 10:00:[address] 3.430.2.7 Hospit a .3.831881 l .8 2021-12-07 2021-12-07 Travel 1.2.840.1 1.2.696.292 8121 [id number] Methodi 00:00:00 00:00:[address] 3.430.2.7 0.2.7.3.698 Ho spita .3.716351 084.8 l .8 2021-12-07 2021-12-07 Travel 1.2.840.1 1.2.323.231 5077 [id number] Methodi 00:00:00 00:00:[address] 3.430.2.7 0.2.7.3.698 Ho spita .3.195008 084.8 l .8 2021-12-02 2021-12-02 (WEB) STLMLC STLMLC [id number] Co mmon 00:00:00 00:00:00 [facility] 2021-12-01 2021-12-01 Community Dexter, 1.2.840.1 [id number] 2099 [id number] Methodi 00:00:00 00:00:00 Orders Nadim 14197.1.[address] 3.430.2.7 Hospit a .3.020349 l .8 2021-12-01 2021-12-01 Community Dexter, 1.2.840.1 [id number] 2099 [id number] Methodi 00:00:00 00:00:00 Orders Nadim 78945.1.[address] 3.430.2.7 Hospit a .3.735920 l .8 2021-12-01 2021-12-01 (WEB) STLMLC STLMLC [id number] Co mmon 00:00:00 00:00:00 [facility] 2021-11-30 2021-11-30 (WEB) STLMLC STLMLC [id number] Co mmon 00:00:00 00:00:00 [facility] 2021-11-25 2021-11-25 Anesthesia Shailesh, 1.2.840.1 [id number] Methodi 15:00:00 15:00:00 Event Jennifer 83456.1.[address] Ashley 3.430.2.7 Hospit a .3.281046 l .8 2021-11-25 2021-11-25 Hospital Dexter, 1.2.840.1 [id number] 83773 Methodi 07:05:00 08:00:00 Encounter Ama 98034.1.[address] 3.430.2.7 Hospit a .3.612729 l .8 2021-11-25 2021-11-25 Hospital Dexter, 1.2.840.1 [id number] 30773 Methodi 07:05:00 08:00:00 Encounter Ama 19558.1.[address] 3.430.2.7 Hospit a .3.342825 l .8 2021-11-25 2021-11-25 (WEB) STLMLC STLMLC [id number] Co mmon 00:00:00 00:00:00 [facility] 2021-11-24 2021-11-24 Lab Dexter, 1.2.840.1 [id number] 6613 Methodi 11:55:00 12:00:[address] 3.430.2.7 Hospit a .3.291892 l .8 2021-11-24 2021-11-24 Lab Dexter, 1.2.840.1 [id number] 6749 Methodi 11:55:00 12:00:[address] 3.430.2.7 Hospit a .3.460397 l .8 2021-11-24 2021-11-24 Travel 1.2.840.1 1.2.850.675 7446 267006 Methodi 00:00:00 00:00:[address] 3.430.2.7 0.2.7.3.698 Ho spita .3.550089 084.8 l .8 2021-11-24 2021-11-24 Travel 1.2.840.1 1.2.115.535 1917 [id number] Methodi 00:00:00 00:00:[address] 3.430.2.7 0.2.7.3.698 Ho spita .3.570623 084.8 l .8 2021-11-23 2021-11-23 OFFICE STLMLC STLMLC [id number] Co mmon 00:00:00 00:00:00 VISIT [facility] ESTAB PT - CHI LEVEL 4 [facility] 2021-11-23 2021-11-23 SUB ANNUAL STLMLC STLMLC [id number] Common 00:00:00 00:00:00 MCR [facility] WELLNESS - CHI VISIT [facility] 2021-11-18 2021-11-18 (TEL) STLMLC STLMLC [id number] Co mmon 00:00:00 00:00:00 [facility] - [facility] 2021-11-10 2021-11-10 (WEB) STLMLC STLMLC [id number] Co mmon 00:00:00 00:00:00 [facility] - [facility] 2021-11-09 2021-11-09 Travel 1.2.840.1 1.2.587.776 9440 [id number] Methodi 00:00:00 00:00:[address] 3.430.2.7 0.2.7.3.698 Ho spita .3.760566 084.8 l .8 2021-11-09 2021-11-09 Travel 1.2.840.1 1.2.451.971 8683 [id number] Methodi 00:00:00 00:00:[address] 3.430.2.7 0.2.7.3.698 Ho spita .3.047583 084.8 l .8 2021-11-09 2021-11-09 (WEB) STLMLC STLMLC [id number] Co mmon 00:00:00 00:00:00 [facility] 2021-11-09 2021-11-09 (WEB) STLMLC STLMLC [id number] Co mmon 00:00:00 00:00:00 [facility] 2021-11-06 2021-11-06 (WEB) STLMLC STLMLC [id number] Co mmon 00:00:00 00:00:00 [facility] 2021-10-22 2021-10-22 [facility] Dexter, 1.2.840.1 [id number] 2099 [id number] Methodi 00:00:00 00:00:00 Orders Nadim 50915.1.[address] 3.430.2.7 Hospit a .3.012195 l .8 2021-10-22 2021-10-22 Community Dexter, 1.2.840.1 [id number] 2099 [id number] Methodi 00:00:00 00:00:00 Orders Nadim 73651.1.[address] 3.430.2.7 Hospit a .3.773933 l .8 2021-09-15 2021-09-15 (WEB) STLMLC STLMLC [id number] Co mmon 00:00:00 00:00:00 [facility] 2021-09-10 2021-09-10 (WEB) STLMLC STLMLC [id number] Co mmon 00:00:00 00:00:00 [facility] 2021-08-26 2021-08-26 (WEB) STLMLC STLMLC [id number] Co mmon 00:00:00 00:00:00 [facility] 2021-08-18 2021-08-18 Ambulatory nullFlavo MNA [id number] Memoria 15:45:00 15:45:00 Pre-Reg r Neurology 11 l Barron Barber 2021-08-18 2021-08-18 Ambulatory nullFlavo MNA [id number] Memoria 15:45:00 15:45:00 Pre-Reg r Neurology 11 l Barron Barber 2021-08-18 2021-08-18 Outpatient MHIE MHIE [id number] Memoria 10:45:00 10:45:00 Mahnaz Blandon 2021-08-18 2021-08-18 Outpatient NOE Garza [facility] [id number] 10:45:00 10:45:00 Terrance Mahajan 2021-08-13 2021-08-13 OFFICE STLMLC STLMLC [id number] Co mmon 00:00:00 00:00:00 VISIT [facility] 4 [facility] 2021-08-12 2021-08-12 (WEB) STLMLC STLMLC [id number] Co mmon 00:00:00 00:00:00 [facility] 2021-06-13 2021-06-13 Outpatient STLMLC STLMLC [id number] Common 00:00:00 00:00:00 [facility] 2021-06-12 2021-06-12 Outpatient STLMLC STLMLC [id number] Common 00:00:00 00:00:00 [facility] 2021-05-18 2021-05-18 Outpatient STLMLC STLMLC [id number] Common 00:00:00 00:00:00 [facility] 2021-04-15 2021-04-15 Outpatient STLMLC STLMLC [id number] Common 00:00:00 00:00:00 [facility] 2021-03-31 2021-03-31 Outpatient STLMLC STLMLC [id number] Common 00:00:00 00:00:00 [facility] 2021-03-13 2021-03-13 Outpatient STLMLC STLMLC [id number] Common 00:00:00 00:00:00 [facility] 2021-02-24 2021-02-24 Outpatient STLMLC STLMLC [id number] Common 00:00:00 00:00:00 [facility] 2021-02-12 2021-02-12 Outpatient STLMLC STLMLC [id number] Common 00:00:00 00:00:00 [facility] 2021-02-05 2021-02-05 Outpatient STLMLC STLMLC [id number] Common 00:00:00 00:00:00 [facility] 2021-01-08 2021-01-08 Outpatient STLMLC STLMLC [id number] Common 00:00:00 00:00:00 [facility] 2020-12-31 2020-12-31 Outpatient STLMLC STLMLC [id number] Common 00:00:00 00:00:00 [facility] 2020-12-12 2020-12-21 [facility] [id number] [facility] 22:32:00 19:10:00 r [place] [facility] l [facility] 2020-12-12 2020-12-21 [facility] [id number] Memoria 22:32:00 19:10:00 r [place] 43 l [facility] 2020-12-12 2020-12-21 Outpatient Greg, MHPL MHPL [id number] 16:32:00 [facility]10[facility] 2020-12-12 2020-12-21 Outpatient Greg, MHPL MHPL [id number] 16:32:00 13:10:00 [place] 43 W 2020-12-12 2020-12-21 Inpatient U GREG, MHBL MED [id number] MHBL 16:32:00 13:10:00 [place] 2020-12-12 2020-12-12 AppointKENTON Dsouza [facility] [id number] UT 13:15:00 13:15:00 t; NIRAV GREGG Phy sici BENNET, M.D. ans M.D. 2020-12-10 2020-12-10 Outpatient STLMLC STLMLC [id number] Common 00:00:00 00:00:00 [facility] 2020-12-09 2020-12-09 Outpatient STLMLC STLMLC [id number] Common 00:00:00 00:00:00 [facility] 2020-12-08 2020-12-08 Outpatient STLMLC STLMLC [id number] Common 00:00:00 00:00:00 [facility] 2020-12-08 2020-12-08 Outpatient STLMLC STLMLC [id number] Common 00:00:00 00:00:00 [facility] 2020-12-02 2020-12-02 Outpatient STLMLC STLMLC [id number] Common 00:00:00 00:00:00 [facility] 2020-11-25 2020-11-25 Outpatient STLMLC STLMLC [id number] Common 00:00:00 00:00:00 [facility] 2020-11-17 2020-11-23 [facility] [id number] Memoria 20:02:47 20:45:00 [place] 00 l [facility] 2020-11-17 2020-11-23 [facility] [id number] Memoria 20:02:47 20:45:00 [facility] 00 l [facility] 2020-11-17 2020-11-23 Inpatient E JESUS NAVARRO MED [facility] MHBL 20:45:00 14:45:00 [facility] 2020-11-17 2020-11-23 Outpatient IRAIS NavarroPL MHPL [id number] 14:02:47 14:45:00 [facility] 2020-11-17 2020-11-23 Outpatient Leander, MHPL MHPL [id number] 14:02:47 14:45:00 [facility] 2020-11-21 2020-11-21 Outpatient STLMLC STLMLC [id number] Common 00:00:00 00:00:00 [facility] 2020-11-04 2020-11-04 Outpatient STLMLC STLMLC [id number] Common 00:00:00 [facility]00 [facility] [facility] 2020-10-29 2020-10-29 Outpatient STLMLC STLMLC [id number] Common 00:00:00 00:00:00 [facility] 2020-10-20 2020-10-20 Outpatient STLMLC STLMLC [id number] Common 00:00:00 00:00:00 [facility] 2020-10-20 2020-10-20 Outpatient STLMLC STLMLC [id number] Common 00:00:00 00:00:00 [facility] 2020-10-06 2020-10-06 Outpatient STLMLC STLMLC [id number] Common 00:00:00 00:00:00 [facility] 2020-10-01 2020-10-01 Outpatient STLMLC STLMLC [id number] Common 00:00:00 00:00:00 [facility] 2020-08-18 2020-08-18 Outpatient STLMLC STLMLC [id number] Common 00:00:00 00:00:00 [facility] 2020-08-15 2020-08-16 Outpatient nullFlavo MNA [id number] Memoria 15:30:00 04:59:59 r Neurology 10 l Bhavna Maddoxann 2020-08-15 2020-08-16 Outpatient nullFlavo MNA [id number] Memoria 15:30:00 04:59:59 r Neurology 10 l Barron Barber 2020-08-15 2020-08-15 Outpatient ALEJANDRO GarzaSCHER MISCHER [id number] 10:30:00 23:59:59 Terrance 10 Keyshawn 2020-08-15 2020-08-15 Ambulatory nullFlavo MNA [id number] Memoria 15:30:00 15:30:00 Pre-Reg r Neurology 09 l Barron Barber 2020-08-15 2020-08-15 Ambulatory nullFlavo MNA [id number] Memoria 15:30:00 15:30:00 Pre-Reg r Neurology 09 l Barron [place] 2020-08-15 2020-08-15 Outpatient MHIE MHIE [id number] Memoria 10:30:00 10:30:00 10 l [place] 2020-08-15 2020-08-15 Outpatient MHIE MHIE [id number] Memoria 10:30:00 10:30:00 09 l [place] 2020-08-15 2020-08-15 Outpatient ALEJANDRO GarzaSCHER MISCHER [id number] 10:30:00 10:30:00 Etrrance 09 Keyshawn 2020-08-11 2020-08-11 Outpatient STLMLC STLMLC [id number] Common 00:00:00 00:00:00 [facility] 2020-06-13 2020-06-13 [facility] [id number] Common 14:20:00 14:20:[address] [facility] 2020-06-11 2020-06-11 [facility] [id number] Common 10:45:00 10:45:[address] [facility] 2020-03-27 2020-03-27 [facility] [id number] Common 10:35:00 10:35:[address] [facility] 2020-03-10 2020-03-10 [facility] [id number] Common 08:00:00 08:00:[address] [facility] 2020-03-03 2020-03-03 [facility] [id number] Common 10:15:00 10:15:[address] [facility] 2020-02-26 2020-02-26 [facility] [id number] Common 12:19:00 12:19:[address] [facility] 2020-01-14 2020-01-14 [facility] [id number] Common 10:45:00 10:45:[address] [facility] 2020-01-04 2020-01-05 Outpatient nullFlavo MNA [id number] Memoria 17:45:00 05:59:59 r Neurology 08 l Bhavna Blandon 2020-01-04 2020-01-05 Outpatient nullFlavo MNA [id number] Memoria 17:45:00 05:59:59 r Neurology 08 l Bhavna Blandon 2020-01-04 2020-01-04 Outpatient NOE Garza [id number] 11:45:00 23:59:59 Terrance 08 Keyshawn 2020-01-04 2020-01-04 Outpatient RENE LÓPEZ [id number] Memoria 11:45:00 11:45:00 08 irineo Blandon 2020-01-03 2020-01-03 [facility] [id number] Common 16:51:00 16:51:[address] [facility] 2019-12-25 2019-12-25 [facility] [id number] Common 08:20:00 08:20:[address] [facility] 2019-12-17 2019-12-17 [facility] [id number] Common 11:00:00 11:00:[address] [facility] 2019-11-23 2019-11-24 Outpatient nullFlavo MNA [id number] Memoria 16:00:00 05:59:59 r Neurology 07 l Bhavna [place] 2019-11-23 2019-11-24 Outpatient nullFlavo MNA [id number] Memoria 16:00:00 05:59:59 r Neurology 07 l Bhavna [place] 2019-11-23 2019-11-23 Outpatient NOE Garza MISCHER [id number] 10:00:00 23:59:59 Terrance Alfredo Mahajan 2019-11-23 2019-11-23 Outpatient MHIE MHIE [id number] Memoria 10:00:00 10:00:00 07 irineo Blandon 2019-11-08 2019-11-08 [facility] [id number] Common 15:00:00 15:00:[address] [facility] 2019-11-06 2019-11-06 Ambulatory nullFlavo MNA [id number] Memoria 15:45:00 15:45:00 Pre-Reg r Neurology 06 l Bhavna Blandon 2019-11-06 2019-11-06 Ambulatory nullFlavo MNA [id number] Memoria 15:45:00 15:45:00 Pre-Reg r Neurology 06 l Bhavna Blandon 2019-11-06 2019-11-06 Outpatient MHIE MHIE [id number] Memoria 09:45:00 09:45:00 06 irineo Blandon 2019-11-06 2019-11-06 Outpatient ALEJANDRO GarzaSCHTERRI MHMISCHER [id number] 09:45:00 09:45:00 Terrance Michael Mahajan 2019-09-05 2019-09-07 Outside nullFlavo MNA [id number] Memoria 20:23:36 05:59:59 Medical r Neurology 01 l Waldemar Blandon 2019-09-05 2019-09-07 Outside nullFlavo MNA [id number] Memoria 20:23:36 05:59:59 Medical r Neurology 01 l Records Bhavna Blandon 2019-09-05 2019-09-06 Outpatient MHMISCHER MHMISCHER [id number] 14:23:36 23:59:59 2019-08-08 2019-08-08 Ambulatory nullFlavo MNA [id number] Memoria 18:00:00 18:00:00 Pre-Reg r Neurology 05 l Bhavna Blandon 2019-08-08 2019-08-08 Ambulatory nullFlavo MNA [id number] Memoria 18:00:00 18:00:00 Pre-Reg r Neurology 05 irineo Barronforrest Maddoxann 2019-08-08 2019-08-08 Outpatient MHIE MHIE [id number] Memoria 13:00:00 13:00:00 05 irineo Blandon 2019-08-08 2019-08-08 Outpatient NOE GarzaSCHTERRI [id number] 13:00:00 13:00:00 Terrance María Elena Mahajan 2019-01-03 2019-01-03 Outpatient MHIE MHIE [id number] Memoria 13:00:00 13:00:00 04 irineo Blandon 2019-01-03 2019-01-03 Outpatient MHIE MHIE [id number] Memoria 13:00:00 13:00:00 04 irineo Blandon 2018-08-30 2018-08-31 Outpatient nullFlavo MNA [id number] Memoria 18:30:00 04:59:59 r Neurology 03 irineo Barron Barber 2018-08-30 2018-08-31 Outpatient nullFlavo MNA [id number] Memoria 18:30:00 04:59:59 r Neurology 03 irineo Barron Barber 2018-08-30 2018-08-30 Outpatient ALEJANDRO GarzaSCHER IRAISMISCHER [id number] 13:30:00 23:59:59 Terrance Yaya Mahajan 2018-08-30 2018-08-30 Outpatient DANA DANA [id number] Memoria 13:30:00 13:30:00 03 irineo Barber 2018-07-19 2018-07-19 Outpatient IE IE [id number] Memoria 13:30:00 13:30:00 02 irineo Blandon 2018-07-19 2018-07-19 Outpatient DANA DANA [id number] Memoria 13:30[facility]00 [facility] [facility] 2018-03-17 Outpatient IE IE [id number] Memoria 08:45:00 08:45:[address] [facility] 2018-03-17 Outpatient DANA IE [id number] Memoria 08:45:00 08:45:00 01 irineo [place] 2018-03-10 2018-03-10 Outpatient DANA DANA [id number] Memoria 16:15:00 16:15:00 00 irineo [place] 2018-03-10 2018-03-10 Outpatient DANA DANA [id number] Memoria 16:15:00 16:15:00 00 irineo [place] Results Test Description Test Time Test Comments Results Result Comments Source ECG Pre/Post Op-Tomorr2021-12-11 04:43:43 Test Item Value Reference Range Interpretation [...] 09:19,-Electronic ventricular pacemaker has replaced [facility]us rhythm[facility] Yp-[id number] 04:43:43 Test Item Value Reference Range Interpretation Comments Ventricular rate (test code = 253) Atrial rate (test code = 255) QRSD interval (test code = 260) QT interval (test code = 264) QTC interval (test code = 265) P axis 1 (test code = 267) QRS axis 1 (test code = 268) T wave axis (test code = 270) EKG impression (test Ventricular-paced code = 273) rhythm with occasional premature ventricular complexes-Abnormal ECG-In automated comparison with ECG of 09-DEC-2021 09:19,-Electronic ventricular pacemaker has replaced Sinus rhythm- [address]2022-02-10 03:55:37 Test Item Value Reference Range Interpretation Comments Ventricular rate (test code = 253) Atrial rate (test code = 255) MS interval (test code = 266) QRSD interval [...] Lopez MD (1008) on 12/09/2021 9:55:33 PM [facility] 12 [id number] 03:55:37 Test Item Value Reference Range Interpretation Comments Ventricular rate (test code = 253) Atrial rate (test code = 255) MS interval (test code = 266) QRSD interval [...] Lopez MD (1008) on 12/09/2021 9:55:33 PM [facility] and [id number] 16:50:00 Test Item Value Reference Range Interpretation Comments ABO grouping (test code = 883-9) A Rh type (test code = 55097-8) POS Antibody screen (gel) (test code = NEG 890-4) [facility] [id number] 16:50:00 Test Item Value Reference Range Interpretation Comments ABO grouping (test code = 883-9) A Rh type (test code = 58264-2) POS Antibody screen (gel) (test code = NEG 890-4) [facility] [id number] 15:55:22 Test Item Value Reference Range Interpretation Comments POC sodium (test code = 141 mmol/L 462-337 6272-0) POC potassium (test 3.6 mmol/L 3.5-5.0 code = 6298-4) POC chloride (test code 99 mmol/L 99-109 = 2069-3) POC CO2 (test code = 27 mmol/L 24-31 22143-5) POC glucose (test code 100 mg/dL 65-99 H = 2339-0) POC BUN (test code = 37 mg/dL 8-24 H 6299-2) POC creatinine (test 1.8 mg/dl 0.7-1.2 H code = 13757-8) POC hematocrit (test 45 % 41-51 code = 4544-3) POC anion gap (test 19 mmol/L 8-20 Occupational Therapy Assist Name: code = [id number]) Kacie Peña ID: [id number] Lab Interpretation Abnormal (test code = 90499-4) [facility] [id number] 15:55:22 Test Item Value Reference Range Interpretation Comments Estimated GFR (test mL/min/1.73 m2 A Caterg ory Units code = 14336-5) Interpretati onG1 >=90 Normal or highG 2 60-89 Mildly decrease dG3a 45-59 Mildly to moderately decr vuimnO1u 30-44 Moderatel y to severely decrea sedG4 15-29 Severely decreasedG5 <15 Kidney failureThe eGFR was calculated katiana randle the Chronic Kidney Disease Epidemiology Collaboration ( CKD-EPI) equation. Interpretation is based on recommendati ons of the National [facility]-Kidn ey Disease Outcome s Quality Initiat erin (NKF-KDOQI) pub lished in 2013. Lab Interpretation Abnormal (test code = 45127-4) [facility] [id number] 15:55:22 Test Item Value Reference Range Interpretation Comments POC sodium (test code = 141 mmol/L 632-586 6940-0) POC potassium (test 3.6 mmol/L 3.5-5.0 code = 6298-4) POC chloride (test code 99 mmol/L 99-109 = 2069-3) POC CO2 (test code = 27 mmol/L 24-31 41018-6) POC glucose (test code 100 mg/dL 65-99 H = 2339-0) POC BUN (test code = 37 mg/dL 8-24 H 6299-2) POC creatinine (test 1.8 mg/dl 0.7-1.2 H code = 15617-9) POC hematocrit (test 45 % 41-51 code = 4544-3) POC anion gap (test 19 mmol/L 8-20 Occupational Therapy Assist Name: code = [id number]) Kacie Peña ID: [id number] Lab Interpretation Abnormal (test code = 40971-5) [facility] [id number] 15:55:22 Test Item Value Reference Range Interpretation Comments Estimated GFR (test mL/min/1.73 m2 A Caterg ory Units code = 24177-5) Interpretati onG1 >=90 Normal or highG 2 60-89 Mildly decrease dG3a 45-59 Mildly to moderately decr ahjygX4f 30-44 Moderatel y to severely decrea sedG4 15-29 Severely decreasedG5 <15 Kidney failureThe eGFR was calculated usin g the Chronic Kidney Disease Epidemiology Collaboration ( CKD-EPI) equation. Interpretation is based on recommendati ons of the National [facility] Disease Outcome s Quality Initiat erin (NKF-KDOQI) [facility]. Lab Interpretation Abnormal (test code = 90436-1) [facility] Omicron variant qualitative [id number] 01:50:40 Test Item Value Reference Range Interpretation Comments Interpretation (test The SARS-CoV-2 N code = 2630223) gene and ORF1ab gene but not the S gene were detected. This pattern is suggestive of the SARS-CoV-2 omicron variant. COVID-19 variant Omicron result (test code = 8191) COVID-19 Omicron See link below Case Numb er: variant qualitative for PDF Lab [id number] RT-PCR (test code = Report 8190) [facility] qualitative [id number] 01:50:40 Test Item Value Reference Range Interpretation Comments Interpretation (test The SARS-CoV-2 N code = 4446719) gene and ORF1ab gene but not the S gene were detected. This pattern is suggestive of the SARS-CoV-2 omicron variant. COVID-19 variant Omicron result (test code = 8191) COVID-19 Omicron See link below Case Numb er: variant qualitative for PDF Lab [id number] 3520 RT-PCR (test code = Report 8190) [facility] [id number] 22:00:30 Test Item Value Reference Range Interpretation Comments Interpretation (test Positive results are code = 0281276) indicative of active infection with 2019-nCoV but [...] Not-Detected A RT-PCR result (test code = 18955-3) COVID-19 qualitative See link below for C ase Number: RT-PCR (test code = PDF Lab Report [id number]) Lab Interpretation Abnormal (test code = 70618-1) [facility] [id number] 22:00:30 Test Item Value Reference Range Interpretation Comments Interpretation (test Positive results are code = 5375818) indicative of active infection with 2019-nCoV but [...] Not-Detected A RT-PCR result (test code = 83106-9) COVID-19 qualitative See link below for C ase Number: RT-PCR (test code = PDF Lab Report [id number]) Lab Interpretation Abnormal (test code = 10905-2) [facility] HwopzeyuCJOS-JgO-9 (COVID-19) RNA [Presence] in Respiratory specimen by NATHALY with probe [id number] 15:59:25 Test Item Value Reference Range Interpretation Comments SARS-CoV-2 (COVID-19) RNA [Presence] Detected Not-Detected in Respiratory specimen by NATHALY with probe detection (test code = 40644-6) Whether patient is employed in a healthcare setting (test code = 83989-9) Whether the patient has symptoms related to condition of interest (test code = 67671-3) Patient was hospitalized because of this condition (test code = 51345-1) Whether the patient was admitted to intensive care unit (ICU) for condition of interest (test code = 41840-3) Whether patient resides in a congregate care setting (test code = 42966-0) [facility] WH[facility] PIGEONCOVID-19 Omicron variant qualitative [id number] 03:48:49 Test Item Value Reference Range Interpretation Comments Interpretation (test Variant analysis code = 1054622) cannot be determined. COVID-19 variant Indeterminate result (test code = 8191) COVID-19 Omicron See link below for Case Number: variant qualitative PDF Lab Report [id number] RT-PCR (test code = 8190) [facility] [id number] 23:40:34 Test Item Value Reference Range Interpretation Comments Interpretation (test Positive results are code = 1517339) indicative of active infection with 2019-nCoV but [...] Not-Detected A RT-PCR result (test code = 78187-1) COVID-19 qualitative See link below for C ase Number: RT-PCR (test code = PDF Lab Report [id number]) Lab Interpretation Abnormal (test code = 51215-2) [facility] MjstwkpeEQVP-PcQ-0 (COVID-19) RNA [Presence] in Respiratory specimen by NATHALY with probe [id number] 17:39:24 Test Item Value Reference Range Interpretation Comments SARS-CoV-2 (COVID-19) RNA [Presence] Detected Not-Detected in Respiratory specimen by NATHALY with probe detection (test code = 23356-3) Whether patient is employed in a healthcare setting (test code = 49513-1) Whether the patient has symptoms related to condition of interest (test code = 02910-6) Patient was hospitalized because of this condition (test code = 26111-2) Whether the patient was admitted to intensive care unit (ICU) for condition of interest (test code = 87930-9) Whether patient resides in a congregate care setting (test code = 42604-6) ANAMIKA LEVINE WESTLipid Panel With LDL/HDL [id number] 00:00:00 Test Item Value Reference Range Interpretation Comments Cholesterol, Total (test code = 2093-3) 106 100-199 Triglycerides (test code = 2571-8) 83 0-149 HDL Cholesterol (test code = 2085-9) 33 >39 Thyroid Panel With [id number] 00:00:00 Test Item Value Reference Range Interpretation Comments TSH (test code = 74927-5) 5.180 0.450-4.500 Thyroxine (T4) (test code = 3026-2) 8.6 4.5-12.0 T3 Uptake (test code = 3050-2) 36 24-39 Free Thyroxine Index (test code = 3.1 1.2-4.9 10340-2) Comp. Metabolic Panel (14) (CMP)2021-11-17 00:00:00 Test Item Value Reference Range Interpretation Comments Glucose (test code = 2345-7) 103 65-99 BUN (test code = 3094-0) 35 8-27 Creatinine (test code = 2160-0) 2.08 0.76-1.27 eGFR If NonAfricn Am (test code = 30 >59 19603-3) eGFR If Africn Am (test code = 03137-4) 35 >59 BUN/Creatinine Ratio (test code = 17 10-24 3097-3) Sodium (test code = 2951-2) 143 134-144 Potassium (test code = 2823-3) 4.6 3.5-5.2 Chloride (test code = 2075-0) 103 96-106 Carbon Dioxide, Total (test code = -2027-9) Calcium (test code = 15887-1) 9.4 8.6-10.2 Protein, Total (test code = 2885-2) 6.3 6.0-8.5 Albumin (test code = 1751-7) 4.0 3.7-4.7 Globulin, Total (test code = 14904-7) 2.3 1.5-4.5 A/G Ratio (test code = 1759-0) 1.7 1.2-2.2 Bilirubin, Total (test code = 1974-) 1.7 0.0-1.2 Alkaline Phosphatase (test code = 98 44-121 6768-6) AST (SGOT) (test code = 1920-8) 37 0-40 ALT (SGPT) (test code = 1742-6) 44 0-44 Uric Acid, [id number] 00:00:00 Test Item Value Reference Range Interpretation Comments Uric Acid (test code = 3084-1) 11.6 3.8-8.4 CBC With Differential/[id number] 00:00:00 Test Item Value Reference Range Interpretation [...] Granulocytes (test code = 0 Not Estab. 40237-4) Immature Grans (Abs) (test code = 0.0 0.0-0.1 65501-9) NRBC (test code = 87380-6) Hematology Comments: (test code = 92915-0) [QL] CBC (INCLUDES DIFF/PLT)2020-12-31 14:00:00 Test Item [...] (test 0 % Not Estab. code = 61823-9) Immature Grans (Abs) (test 0.0 {x10E3/uL} 0.0-0.1 code = 40186-6) NRBC (test code = 24507-4) See Comment Hematology Comments: (test See Comment code = 66753-3) [facility][QL] BASIC METABOLIC PANEL [id number] 14:00:00 Test Item Value Reference Range Interpretation Comments Glucose; Above High Threshold 101 mg/dL 65-99 (test code = 2345-7) BUN (test code = 3094-0) 19 mg/dL 8-27 Creatinine (test code = 2160-0) 1.15 mg/dL 0.76-1.27 eGFR If NonAfrcn Am (test code 62 mL/min/1.7 >59 = 12033-3) eGFR If Africn Am (test code = 72 mL/min/1.7 >59 74847-2) BUN/Creatinine Ratio (test code 08-23 = 3097-3) Sodium, Serum (test code = 137 mmol/L 831-342 0095-2) Potassium (test code = 2823-3) 3.8 mmol/L 3.5-5.2 Chloride; Below Low Threshold 94 mmol/L 96-106 (test code = 2075-0) Carbon Dioxide, Total (test 28 mmol/L 20- code = 8-9) Calcium (test code = 22827-5) 8.7 mg/dL 8.6-10.2 [facility][QL] [id number] 14:00:00 Test Item Value Reference Range Interpretation Comments Magnesium, Serum (test code = 1.8 mg/dL 1.6-2.3 98220-0) [facility][QL] B TYPE NATRIURETIC PEPTIDE (BNP)2020-12-31 14:00:00 Test Item Value Reference Range Interpretation Comments B-Type Natriuretic Peptide; 1600.1 pg/mL 0.0-100.0 Above High Threshold (test code = 50158-9) [facility]2021-02-21 16:05:00 Test Item Value Reference Range Interpretation Comments Glucose Lvl (test code = Glucose Lvl) 98 70-99 [facility]2021-02-21 16:05:00 Test Item Value Reference Range Interpretation Comments BUN (test code = BUN) 37 7-22 [facility]2021-02-21 16:05:00 Test Item Value Reference Range Interpretation Comments Creatinine Lvl (test code = Creatinine 1.65 0.50-1.40 Lvl) [facility]2021-02-21 16:05:00 Test Item Value Reference Range Interpretation Comments Sodium Lvl (test code = Sodium Lvl) 131 135-145 [facility]2021-02-21 16:05:00 Test Item Value Reference Range Interpretation Comments Potassium Lvl (test code = Potassium 3.5 3.5-5.1 Lvl) [facility]2021-02-21 16:05:00 Test Item Value Reference Range Interpretation Comments Chloride Lvl (test code = Chloride Lvl) 96 95-109 [facility]2021-02-21 16:05:00 Test Item Value Reference Range Interpretation Comments CO2 (test code = CO2) 27 24-32 [facility]2021-02-21 16:05:00 Test Item Value Reference Range Interpretation Comments Calcium Lvl (test code = Calcium Lvl) 8.6 8.5-10.5 [facility]2021-02-21 16:05:00 Test Item Value Reference Range Interpretation Comments AGAP (test code = AGAP) 11.5 10.0-20.0 [id number] 16:05:00 Test Item Value Reference Range Interpretation Comments eGFR (test code = eGFR) 40 [facility]2021-02-21 16:05:00 Test Item Value Reference Range Interpretation Comments Glucose Lvl (test code = Glucose Lvl) 98 70-99 [facility]2021-02-21 16:05:00 Test Item Value Reference Range Interpretation Comments BUN (test code = BUN) 37 7-22 [place] [id number] 16:05:00 Test Item Value Reference Range Interpretation Comments Creatinine Lvl (test code = Creatinine 1.65 0.50-1.40 Lvl) [facility]2021-02-21 16:05:00 Test Item Value Reference Range Interpretation Comments Sodium Lvl (test code = Sodium Lvl) 131 135-145 [facility]2021-02-21 16:05:00 Test Item Value Reference Range Interpretation Comments Potassium Lvl (test code = Potassium 3.5 3.5-5.1 Lvl) [facility]2021-02-21 16:05:00 Test Item Value Reference Range Interpretation Comments Chloride Lvl (test code = Chloride Lvl) 96 95-109 [facility]2021-02-21 16:05:00 Test Item Value Reference Range Interpretation Comments CO2 (test code = CO2) 27 24-32 [facility]2021-02-21 16:05:00 Test Item Value Reference Range Interpretation Comments Calcium Lvl (test code = Calcium Lvl) 8.6 8.5-10.5 [facility]2021-02-21 16:05:00 Test Item Value Reference Range Interpretation Comments AGAP (test code = AGAP) 11.5 10.0-20.0 [facility]2021-02-21 16:05:00 Test Item Value Reference Range Interpretation Comments eGFR (test code = eGFR) 40 [place] [id number] 16:05:00 Test Item Value Reference Range Interpretation Comments Glucose Lvl (test code = Glucose Lvl) 98 70-99 [place] 378941-02-21 16:05:00 Test Item Value Reference Range Interpretation Comments BUN (test code = BUN) 37 7-22 [facility]2021-02-21 16:05:00 Test Item Value Reference Range Interpretation Comments Creatinine Lvl (test code = Creatinine 1.65 0.50-1.40 Lvl) [place] 378941-02-21 16:05:00 Test Item Value Reference Range Interpretation Comments Sodium Lvl (test code = Sodium Lvl) 131 135-145 [facility]2021-02-21 16:05:00 Test Item Value Reference Range Interpretation Comments Potassium Lvl (test code = Potassium 3.5 3.5-5.1 Lvl) [facility]2021-02-21 16:05:00 Test Item Value Reference Range Interpretation Comments Chloride Lvl (test code = Chloride Lvl) 96 95-109 [facility]2021-02-21 16:05:00 Test Item Value Reference Range Interpretation Comments CO2 (test code = CO2) 27 24-32 [facility]2021-02-21 16:05:00 Test Item Value Reference Range Interpretation Comments Calcium Lvl (test code = Calcium Lvl) 8.6 8.5-10.5 [facility]2021-02-21 16:05:00 Test Item Value Reference Range Interpretation Comments AGAP (test code = AGAP) 11.5 10.0-20.0 [facility]2021-02-21 16:05:00 Test Item Value Reference Range Interpretation Comments eGFR (test code = eGFR) 40 [facility]2021-02-20 11:32:00 Test Item Value Reference Range Interpretation Comments Glucose Lvl (test code = Glucose Lvl) 105 70-99 [facility]2021-02-20 11:32:00 Test Item Value Reference Range Interpretation Comments BUN (test code = BUN) 45 7-22 [facility]2021-02-20 11:32:00 Test Item Value Reference Range Interpretation Comments Creatinine Lvl (test code = Creatinine 1.99 0.50-1.40 Lvl) [facility]2021-02-20 11:32:00 Test Item Value Reference Range Interpretation Comments Sodium Lvl (test code = Sodium Lvl) 130 135-145 [facility]2021-02-20 11:32:00 Test Item Value Reference Range Interpretation Comments Potassium Lvl (test code = Potassium 3.7 3.5-5.1 Lvl) [place] 378941-02-20 11:32:00 Test Item Value Reference Range Interpretation Comments Chloride Lvl (test code = Chloride Lvl) 96 95-109 [place] 378941-02-20 11:32:00 Test Item Value Reference Range Interpretation Comments CO2 (test code = CO2) 25 24-32 [place] 378941-02-20 11:32:00 Test Item Value Reference Range Interpretation Comments Calcium Lvl (test code = Calcium Lvl) 8.5 8.5-10.5 [place] 378941-02-20 11:32:00 Test Item Value Reference Range Interpretation Comments Total Protein (test code = Total 5.9 6.4-8.4 Protein) [place] 378941-02-20 11:32:00 Test Item Value Reference Range Interpretation Comments Albumin Lvl (test code = Albumin Lvl) 2.8 3.5-5.0 [place] 378941-02-20 11:32:00 Test Item Value Reference Range Interpretation Comments ALT (test code = ALT) 326 See_Comment [Auto mated message] The system which ge nerated this result transmit tammi reference range : <=65. The reference range was not used to interpr et this result as josé miguel l/abnormal. [place] 378941-02-20 11:32:00 Test Item Value Reference Range Interpretation Comments AST (test code = AST) 164 See_Comment [Auto mated message] The system which ge nerated this result transmit tammi reference range : <=37. The reference range was not used to interpr et this result as josé miguel l/abnormal. [place] 378941-02-20 11:32:00 Test Item Value Reference Range Interpretation Comments Alk Phos (test code = Alk Phos) 97 39-136 [place] 378941-02-20 11:32:00 Test Item Value Reference Range Interpretation Comments Bili Total (test code = Bili Total) 1.6 0.2-1.3 [place] 378941-02-20 11:32:00 Test Item Value Reference Range Interpretation Comments AGAP (test code = AGAP) 12.7 10.0-20.0 [place] 378941-02-20 11:32:00 Test Item Value Reference Range Interpretation Comments B/C Ratio (test code = B/C Ratio) 23 1 6-25 [place] 378941-02-20 11:32:00 Test Item Value Reference Range Interpretation Comments Globulin (test code = Globulin) 3.1 2.7-4.2 [place] 378941-02-20 11:32:00 Test Item Value Reference Range Interpretation Comments A/G Ratio (test code = A/G Ratio) 0.9 1 0.7-1.6 [place] 378941-02-20 11:32:00 Test Item Value Reference Range Interpretation Comments eGFR (test code = eGFR) 32 [place] 378941-02-20 11:32:00 Test Item Value Reference Range Interpretation Comments Magnesium Lvl (test code = Magnesium 2.4 1.8-2.4 Lvl) [place] 378941-02-20 11:32:00 Test Item Value Reference Range Interpretation Comments Phosphorus (test code = Phosphorus) 3.6 2.5-4.5 [place] 437761-02-20 11:32:00 Test Item Value Reference Range Interpretation Comments Segs (test code = Segs) 67.5 45.0-75.0 [place] 437761-02-20 11:32:00 Test Item Value Reference Range Interpretation Comments Lymphocytes (test code = Lymphocytes) 21.0 20.0-40.0 [place] 437761-02-20 11:32:00 Test Item Value Reference Range Interpretation Comments Monocytes (test code = Monocytes) 7.2 2.0-12.0 [place] 437761-02-20 11:32:00 Test Item Value Reference Range Interpretation Comments Eosinophils (test code = 3.4 See_Comment [A utomated message] The Eosinophils) system which ge nerated this result tra nsmitted reference range : <=4.0. The reference r princess was not used to int erpret this result as normal/abnormal . [place] 437761-02-20 11:32:00 Test Item Value Reference Range Interpretation Comments Basophils (test code = 0.9 See_Comment [Aut omated message] The Basophils) system which ge nerated this result tra nsmitted reference range : <=1.0. The reference r princess was not used to int erpret this result as normal/abnormal . [place] 437761-02-20 11:32:00 Test Item Value Reference Range Interpretation Comments Neutrophils # (test code = Neutrophils 5.5 1.5-8.1 #) [facility] 11:32:00 Test Item Value Reference Range Interpretation Comments Lymphocytes # (test code = Lymphocytes 1.7 1.0-5.5 #) [place] 437761-02-20 11:32:00 Test Item Value Reference Range Interpretation Comments Monocytes # (test code 0.6 See_Comment [Aut omated message] The = Monocytes #) system which generated this result tra nsmitted reference range : <=0.8. The reference r princess was not used to int erpret this result as normal/abnormal . [place] 437761-02-20 11:32:00 Test Item Value Reference Range Interpretation Comments Eosinophils # (test code 0.3 See_Comment [A utomated message] The = Eosinophils #) system whic h generated this result tra nsmitted reference range : <=0.5. The reference r princess was not used to int erpret this result as normal/abnormal . [facility]UDKBRX[facility]93[facility]25 11:32:00 Test Item Value Reference Range Interpretation Comments Basophils # (test code 0.1 See_Comment [Aut omated message] The = Basophils #) system which generated this result tra nsmitted reference range : <=0.2. The reference r princess was not used to int erpret this result as normal/abnormal . [facility]pkpomkQYBIADARFJ4037-48-81 11:32:00 Test Item Value Reference Range Interpretation Comments WBC (test code = WBC) 8.1 3.7-10.4 [place] 437761-02-20 11:32:00 Test Item Value Reference Range Interpretation Comments RBC (test code = RBC) 4.13 4.70-6.10 [place] 437761-02-20 11:32:00 Test Item Value Reference Range Interpretation Comments Hgb (test code = Hgb) 12.3 14.0-18.0 [place] 437761-02-20 11:32:00 Test Item Value Reference Range Interpretation Comments Hct (test code = Hct) 37.7 42.0-54.0 [place] 437761-02-20 11:32:00 Test Item Value Reference Range Interpretation Comments MCV (test code = MCV) 91.2 80.0-94.0 [place] 437761-02-20 11:32:00 Test Item Value Reference Range Interpretation Comments MCH (test code = MCH) 29.8 pg 27.0-31.0 [place] 437761-02-20 11:32:00 Test Item Value Reference Range Interpretation Comments MCHC (test code = MCHC) 32.7 32.0-36.0 [place] 437761-02-20 11:32:00 Test Item Value Reference Range Interpretation Comments RDW (test code = RDW) 16.3 11.5-14.5 [place] 437761-02-20 11:32:00 Test Item Value Reference Range Interpretation Comments Platelet (test code = Platelet) 159 133-450 [facility]NscfsvsGPLKLUOAZW4031-39-87 11:32:00 Test Item Value Reference Range Interpretation Comments MPV (test code = MPV) 9.3 7.4-10.4 [place] 437761-02-20 11:32:00 Test Item Value Reference Range Interpretation Comments PT (test code = PT) 16.8 s 12.0-14.7 [place] 437761-02-20 11:32:00 Test Item Value Reference Range Interpretation Comments INR (test code = INR) 1.39 1 0.85-1.17 [place] 437761-02-20 11:32:00 Test Item Value Reference Range Interpretation Comments PTT (test code = PTT) 75.0 s 22.9-35.8 [facility]2021-02-20 11:32:00 Test Item Value Reference Range Interpretation Comments Glucose Lvl (test code = Glucose Lvl) 105 70-99 [facility]2021-02-20 11:32:00 Test Item Value Reference Range Interpretation Comments BUN (test code = BUN) 45 7-22 [place] 378941-02-20 11:32:00 Test Item Value Reference Range Interpretation Comments Creatinine Lvl (test code = Creatinine 1.99 0.50-1.40 Lvl) [place] 378941-02-20 11:32:00 Test Item Value Reference Range Interpretation Comments Sodium Lvl (test code = Sodium Lvl) 130 135-145 [place] 378941-02-20 11:32:00 Test Item Value Reference Range Interpretation Comments Potassium Lvl (test code = Potassium 3.7 3.5-5.1 Lvl) [place] 378941-02-20 11:32:00 Test Item Value Reference Range Interpretation Comments Chloride Lvl (test code = Chloride Lvl) 96 95-109 [place] 378941-02-20 11:32:00 Test Item Value Reference Range Interpretation Comments CO2 (test code = CO2) 25 24-32 [place] 378941-02-20 11:32:00 Test Item Value Reference Range Interpretation Comments Calcium Lvl (test code = Calcium Lvl) 8.5 8.5-10.5 [place] 378941-02-20 11:32:00 Test Item Value Reference Range Interpretation Comments Total Protein (test code = Total 5.9 6.4-8.4 Protein) [place] 378941-02-20 11:32:00 Test Item Value Reference Range Interpretation Comments Albumin Lvl (test code = Albumin Lvl) 2.8 3.5-5.0 [place] 378941-02-20 11:32:00 Test Item Value Reference Range Interpretation Comments ALT (test code = ALT) 326 See_Comment [Auto mated message] The system which ge nerated this result transmit tammi reference range : <=65. The reference range was not used to interpr et this result as josé miguel l/abnormal. [place] 378941-02-20 11:32:00 Test Item Value Reference Range Interpretation Comments AST (test code = AST) 164 See_Comment [Auto mated message] The system which ge nerated this result transmit tammi reference range : <=37. The reference range was not used to interpr et this result as josé miguel l/abnormal. [place] 378941-02-20 11:32:00 Test Item Value Reference Range Interpretation Comments Alk Phos (test code = Alk Phos) 97 39-136 [place] 378941-02-20 11:32:00 Test Item Value Reference Range Interpretation Comments Bili Total (test code = Bili Total) 1.6 0.2-1.3 [place] 378941-02-20 11:32:00 Test Item Value Reference Range Interpretation Comments AGAP (test code = AGAP) 12.7 10.0-20.0 [place] 378941-02-20 11:32:00 Test Item Value Reference Range Interpretation Comments B/C Ratio (test code = B/C Ratio) 23 1 6-25 [place] 378941-02-20 11:32:00 Test Item Value Reference Range Interpretation Comments Globulin (test code = Globulin) 3.1 2.7-4.2 [place] 378941-02-20 11:32:00 Test Item Value Reference Range Interpretation Comments A/G Ratio (test code = A/G Ratio) 0.9 1 0.7-1.6 [place] 378941-02-20 11:32:00 Test Item Value Reference Range Interpretation Comments eGFR (test code = eGFR) 32 [place] 378941-02-20 11:32:00 Test Item Value Reference Range Interpretation Comments Magnesium Lvl (test code = Magnesium 2.4 1.8-2.4 Lvl) [facility]2021-02-20 11:32:00 Test Item Value Reference Range Interpretation Comments Phosphorus (test code = Phosphorus) 3.6 2.5-4.5 [place] 437761-02-20 11:32:00 Test Item Value Reference Range Interpretation Comments Segs (test code = Segs) 67.5 45.0-75.0 [place] 437761-02-20 11:32:00 Test Item Value Reference Range Interpretation Comments Lymphocytes (test code = Lymphocytes) 21.0 20.0-40.0 [place] 437761-02-20 11:32:00 Test Item Value Reference Range Interpretation Comments Monocytes (test code = Monocytes) 7.2 2.0-12.0 [place] 437761-02-20 11:32:00 Test Item Value Reference Range Interpretation Comments Eosinophils (test code = 3.4 See_Comment [A utomated message] The Eosinophils) system which ge nerated this result tra nsmitted reference range : <=4.0. The reference r princess was not used to int erpret this result as normal/abnormal . [place] 437761-02-20 11:32:00 Test Item Value Reference Range Interpretation Comments Basophils (test code = 0.9 See_Comment [Aut omated message] The Basophils) system which ge nerated this result tra nsmitted reference range : <=1.0. The reference r princess was not used to int erpret this result as normal/abnormal . [place] 437761-02-20 11:32:00 Test Item Value Reference Range Interpretation Comments Neutrophils # (test code = Neutrophils 5.5 1.5-8.1 #) [facility]lodp[facility]OOD[facility]GS[facility]42[facility] 11:32:00 Test Item Value Reference Range Interpretation Comments Lymphocytes # (test code = Lymphocytes 1.7 1.0-5.5 #) [place] 437761-02-20 11:32:00 Test Item Value Reference Range Interpretation Comments Monocytes # (test code 0.6 See_Comment [Aut omated message] The = Monocytes #) system which generated this result tra nsmitted reference range : <=0.8. The reference r princess was not used to int erpret this result as normal/abnormal . [facility]eqardoKGQTNQSXQB5423-28-81 11:32:00 Test Item Value Reference Range Interpretation Comments Eosinophils # (test code 0.3 See_Comment [A utomated message] The = Eosinophils #) system whic h generated this result tra nsmitted reference range : <=0.5. The reference r princess was not used to int erpret this result as normal/abnormal . [facility]FiagywyARLDODXZRR5570-56-72 11:32:00 Test Item Value Reference Range Interpretation Comments Basophils # (test code 0.1 See_Comment [Aut omated message] The = Basophils #) system which generated this result tra nsmitted reference range : <=0.2. The reference r princess was not used to int erpret this result as normal/abnormal . [place] 437761-02-20 11:32:00 Test Item Value Reference Range Interpretation Comments WBC (test code = WBC) 8.1 3.7-10.4 [place] 437761-02-20 11:32:00 Test Item Value Reference Range Interpretation Comments RBC (test code = RBC) 4.13 4.70-6.10 [facility]uedvznSNKLBQQDLY4190-01-93 11:32:00 Test Item Value Reference Range Interpretation Comments Hgb (test code = Hgb) 12.3 14.0-18.0 [place] 437761-02-20 11:32:00 Test Item Value Reference Range Interpretation Comments Hct (test code = Hct) 37.7 42.0-54.0 [place] 437761-02-20 11:32:00 Test Item Value Reference Range Interpretation Comments MCV (test code = MCV) 91.2 80.0-94.0 [place] 437761-02-20 11:32:00 Test Item Value Reference Range Interpretation Comments MCH (test code = MCH) 29.8 pg 27.0-31.0 [facility]pthmwdRYBFGKAEMY4837-30-77 11:32:00 Test Item Value Reference Range Interpretation Comments MCHC (test code = MCHC) 32.7 32.0-36.0 [place] 437761-02-20 11:32:00 Test Item Value Reference Range Interpretation Comments RDW (test code = RDW) 16.3 11.5-14.5 [facility]GhzkfysUXENOEJVRP5817-99-19 11:32:00 Test Item Value Reference Range Interpretation Comments Platelet (test code = Platelet) 159 133-450 [facility]NbechzrAGHLZWCDPX2267-85-31 11:32:00 Test Item Value Reference Range Interpretation Comments MPV (test code = MPV) 9.3 7.4-10.4 [place] 437761-02-20 11:32:00 Test Item Value Reference Range Interpretation Comments PT (test code = PT) 16.8 s 12.0-14.7 [place] 437761-02-20 11:32:00 Test Item Value Reference Range Interpretation Comments INR (test code = INR) 1.39 1 0.85-1.17 [place] 437761-02-20 11:32:00 Test Item Value Reference Range Interpretation Comments PTT (test code = PTT) 75.0 s 22.9-35.8 [facility]2021-02-20 11:32:00 Test Item Value Reference Range Interpretation Comments Glucose Lvl (test code = Glucose Lvl) 105 70-99 [facility]2021-02-20 11:32:00 Test Item Value Reference Range Interpretation Comments BUN (test code = BUN) 45 7-22 [place] 378941-02-20 11:32:00 Test Item Value Reference Range Interpretation Comments Creatinine Lvl (test code = Creatinine 1.99 0.50-1.40 Lvl) [place] 378941-02-20 11:32:00 Test Item Value Reference Range Interpretation Comments Sodium Lvl (test code = Sodium Lvl) 130 135-145 [place] 378941-02-20 11:32:00 Test Item Value Reference Range Interpretation Comments Potassium Lvl (test code = Potassium 3.7 3.5-5.1 Lvl) [place] 378941-02-20 11:32:00 Test Item Value Reference Range Interpretation Comments Chloride Lvl (test code = Chloride Lvl) 96 95-109 [place] 378941-02-20 11:32:00 Test Item Value Reference Range Interpretation Comments CO2 (test code = CO2) 25 24-32 [place] 378941-02-20 11:32:00 Test Item Value Reference Range Interpretation Comments Calcium Lvl (test code = Calcium Lvl) 8.5 8.5-10.5 [place] 378941-02-20 11:32:00 Test Item Value Reference Range Interpretation Comments Total Protein (test code = Total 5.9 6.4-8.4 Protein) [place] 378941-02-20 11:32:00 Test Item Value Reference Range Interpretation Comments Albumin Lvl (test code = Albumin Lvl) 2.8 3.5-5.0 [place] 378941-02-20 11:32:00 Test Item Value Reference Range Interpretation Comments ALT (test code = ALT) 326 See_Comment [Auto mated message] The system which ge nerated this result transmit tammi reference range : <=65. The reference range was not used to interpr et this result as josé miguel l/abnormal. [place]8941-02-20 11:32:00 Test Item Value Reference Range Interpretation Comments AST (test code = AST) 164 See_Comment [Auto mated message] The system which ge nerated this result transmit tammi reference range : <=37. The reference range was not used to interpr et this result as josé miguel l/abnormal. [place]8941-02-20 11:32:00 Test Item Value Reference Range Interpretation Comments Alk Phos (test code = Alk Phos) 97 39-136 [place] 378941-02-20 11:32:00 Test Item Value Reference Range Interpretation Comments Bili Total (test code = Bili Total) 1.6 0.2-1.3 [place] 378941-02-20 11:32:00 Test Item Value Reference Range Interpretation Comments AGAP (test code = AGAP) 12.7 10.0-20.0 [place] 378941-02-20 11:32:00 Test Item Value Reference Range Interpretation Comments B/C Ratio (test code = B/C Ratio) 23 1 6-25 [place] 378941-02-20 11:32:00 Test Item Value Reference Range Interpretation Comments Globulin (test code = Globulin) 3.1 2.7-4.2 [place] 378941-02-20 11:32:00 Test Item Value Reference Range Interpretation Comments A/G Ratio (test code = A/G Ratio) 0.9 1 0.7-1.6 [place] 378941-02-20 11:32:00 Test Item Value Reference Range Interpretation Comments eGFR (test code = eGFR) 32 [facility]2021-02-20 11:32:00 Test Item Value Reference Range Interpretation Comments Magnesium Lvl (test code = Magnesium 2.4 1.8-2.4 Lvl) [facility]2021-02-20 11:32:00 Test Item Value Reference Range Interpretation Comments Phosphorus (test code = Phosphorus) 3.6 2.5-4.5 [place] 437761-02-20 11:32:00 Test Item Value Reference Range Interpretation Comments Segs (test code = Segs) 67.5 45.0-75.0 [place] 437761-02-20 11:32:00 Test Item Value Reference Range Interpretation Comments Lymphocytes (test code = Lymphocytes) 21.0 20.0-40.0 [place] 437761-02-20 11:32:00 Test Item Value Reference Range Interpretation Comments Monocytes (test code = Monocytes) 7.2 2.0-12.0 [place] 437761-02-20 11:32:00 Test Item Value Reference Range Interpretation Comments Eosinophils (test code = 3.4 See_Comment [A utomated message] The Eosinophils) system which ge nerated this result tra nsmitted reference range : <=4.0. The reference r princess was not used to int erpret this result as normal/abnormal . [place] 437761-02-20 11:32:00 Test Item Value Reference Range Interpretation Comments Basophils (test code = 0.9 See_Comment [Aut omated message] The Basophils) system which ge nerated this result tra nsmitted reference range : <=1.0. The reference r princess was not used to int erpret this result as normal/abnormal . [place] 437761-02-20 11:32:00 Test Item Value Reference Range Interpretation Comments Neutrophils # (test code = Neutrophils 5.5 1.5-8.1 #) [place] 437761-02-20 11:32:00 Test Item Value Reference Range Interpretation Comments Lymphocytes # (test code = Lymphocytes 1.7 1.0-5.5 #) [place] 437761-02-20 11:32:00 Test Item Value Reference Range Interpretation Comments Monocytes # (test code 0.6 See_Comment [Aut omated message] The = Monocytes #) system which generated this result tra nsmitted reference range : <=0.8. The reference r princess was not used to int erpret this result as normal/abnormal . [place] 437761-02-20 11:32:00 Test Item Value Reference Range Interpretation Comments Eosinophils # (test code 0.3 See_Comment [A utomated message] The = Eosinophils #) system whic h generated this result tra nsmitted reference range : <=0.5. The reference r princess was not used to int erpret this result as normal/abnormal . [place] 437761-02-20 11:32:00 Test Item Value Reference Range Interpretation Comments Basophils # (test code 0.1 See_Comment [Aut omated message] The = Basophils #) system which generated this result tra nsmitted reference range : <=0.2. The reference r princess was not used to int erpret this result as normal/abnormal . [place] 437761-02-20 11:32:00 Test Item Value Reference Range Interpretation Comments WBC (test code = WBC) 8.1 3.7-10.4 [facility]vazunsDUCIQKJCEN9210-18-40 11:32:00 Test Item Value Reference Range Interpretation Comments RBC (test code = RBC) 4.13 4.70-6.10 [facility]DibbcbxCCFSVEJWSV0576-58-46 11:32:00 Test Item Value Reference Range Interpretation Comments Hgb (test code = Hgb) 12.3 14.0-18.0 [facility]OxlgnljXKDOFGNLBH3711-34-33 11:32:00 Test Item Value Reference Range Interpretation Comments Hct (test code = Hct) 37.7 42.0-54.0 [facility]MkalddlVJRSVNZVQL8269-59-43 11:32:00 Test Item Value Reference Range Interpretation Comments MCV (test code = MCV) 91.2 80.0-94.0 [facility]HmbmupoWWOCLGARGR3849-76-92 11:32:00 Test Item Value Reference Range Interpretation Comments MCH (test code = MCH) 29.8 pg 27.0-31.0 [facility]VlrdhrgUYOGEOGOGI0217-70-44 11:32:00 Test Item Value Reference Range Interpretation Comments MCHC (test code = MCHC) 32.7 32.0-36.0 [facility]CvngccjYVBBQPIQHG6058-07-47 11:32:00 Test Item Value Reference Range Interpretation Comments RDW (test code = RDW) 16.3 11.5-14.5 [facility]LsvzgqhIGDAETAHKE1352-78-75 11:32:00 Test Item Value Reference Range Interpretation Comments Platelet (test code = Platelet) 159 133-450 [facility]BmqyiidGNVDWWFXDM2435-44-61 11:32:00 Test Item Value Reference Range Interpretation Comments MPV (test code = MPV) 9.3 7.4-10.4 [facility]SxoxpogYFXRGLZRAX0881-13-19 11:32:00 Test Item Value Reference Range Interpretation Comments PT (test code = PT) 16.8 s 12.0-14.7 [facility]UjicqdwCMPKRDLIRR0670-07-50 11:32:00 Test Item Value Reference Range Interpretation Comments INR (test code = INR) 1.39 1 0.85-1.17 [facility]EuzmmywDOSARQVRVV3059-84-99 11:32:00 Test Item Value Reference Range Interpretation Comments PTT (test code = PTT) 75.0 s 22.9-35.8 [facility]FapqpysEPIANUSRRL8833-93-83 00:10:00 Test Item Value Reference Range Interpretation Comments PT (test code = PT) 16.8 s 12.0-14.7 [facility]QdmrjejKZSKKPXAOE6673-40-11 00:10:00 Test Item Value Reference Range Interpretation Comments INR (test code = INR) 1.39 1 0.85-1.17 [facility]PgeycrrNNGEKUFWJO0153-85-53 00:10:00 Test Item Value Reference Range Interpretation Comments PTT (test code = PTT) 72.6 s 22.9-35.8 [facility]HrtlhnrFDSZDLRGMW4541-20-76 00:10:00 Test Item Value Reference Range Interpretation Comments PT (test code = PT) 16.8 s 12.0-14.7 [facility]KtxluagTCQXHQVVJE0131-36-64 00:10:00 Test Item Value Reference Range Interpretation Comments INR (test code = INR) 1.39 1 0.85-1.17 [facility]TmpxzfjAOOEBUMIZS1037-04-04 00:10:00 Test Item Value Reference Range Interpretation Comments PTT (test code = PTT) 72.6 s 22.9-35.8 [facility]JhqkhcmBCMQFMDMHU5414-04-93 00:10:00 Test Item Value Reference Range Interpretation Comments PT (test code = PT) 16.8 s 12.0-14.7 [facility]VhvoqqoLEHNOIGRQS7142-72-47 00:10:00 Test Item Value Reference Range Interpretation Comments INR (test code = INR) 1.39 1 0.85-1.17 [facility]BjmsrzjHRXTBLMUPZ4509-34-69 00:10:00 Test Item Value Reference Range Interpretation Comments PTT (test code = PTT) 72.6 s 22.9-35.8 [facility]2021-02-19 17:53:00 Test Item Value Reference Range Interpretation Comments Magnesium Lvl (test code = Magnesium 2.5 1.8-2.4 Lvl) [facility]2021-02-19 17:53:00 Test Item Value Reference Range Interpretation Comments Phosphorus (test code = Phosphorus) 4.3 2.5-4.5 [facility]2021-02-19 17:53:00 Test Item Value Reference Range Interpretation Comments Glucose Lvl (test code = Glucose Lvl) 120 70-99 [place]8941-02-19 17:53:00 Test Item Value Reference Range Interpretation Comments BUN (test code = BUN) 47 7-22 [place]8941-02-19 17:53:00 Test Item Value Reference Range Interpretation Comments Creatinine Lvl (test code = Creatinine 2.28 0.50-1.40 Lvl) [place]8941-02-19 17:53:00 Test Item Value Reference Range Interpretation Comments Sodium Lvl (test code = Sodium Lvl) 127 135-145 [place]8941-02-19 17:53:00 Test Item Value Reference Range Interpretation Comments Potassium Lvl (test code = Potassium 3.9 3.5-5.1 Lvl) [place]8941-02-19 17:53:00 Test Item Value Reference Range Interpretation Comments Chloride Lvl (test code = Chloride Lvl) 93 95-109 [place]8941-02-19 17:53:00 Test Item Value Reference Range Interpretation Comments CO2 (test code = CO2) 24 24-32 [place]8941-02-19 17:53:00 Test Item Value Reference Range Interpretation Comments Calcium Lvl (test code = Calcium Lvl) 8.8 8.5-10.5 [place]8941-02-19 17:53:00 Test Item Value Reference Range Interpretation Comments Total Protein (test code = Total 6.5 6.4-8.4 Protein) [place] 378941-02-19 17:53:00 Test Item Value Reference Range Interpretation Comments Albumin Lvl (test code = Albumin Lvl) 3.0 3.5-5.0 [place] 378941-02-19 17:53:00 Test Item Value Reference Range Interpretation Comments ALT (test code = ALT) 377 See_Comment [Auto mated message] The system which ge nerated this result transmit tammi reference range : <=65. The reference range was not used to interpr et this result as josé miguel l/abnormal. [place] 378941-02-19 17:53:00 Test Item Value Reference Range Interpretation Comments AST (test code = AST) 234 See_Comment [Auto mated message] The system which ge nerated this result transmit tammi reference range : <=37. The reference range was not used to interpr et this result as josé miguel l/abnormal. [facility]2021-02-19 17:53:00 Test Item Value Reference Range Interpretation Comments Alk Phos (test code = Alk Phos) 110 39-136 [facility]2021-02-19 17:53:00 Test Item Value Reference Range Interpretation Comments Bili Total (test code = Bili Total) 2.0 0.2-1.3 [facility]2021-02-19 17:53:00 Test Item Value Reference Range Interpretation Comments AGAP (test code = AGAP) 13.9 10.0-20.0 [facility]2021-02-19 17:53:00 Test Item Value Reference Range Interpretation Comments B/C Ratio (test code = B/C Ratio) 21 1 6-25 [facility]2021-02-19 17:53:00 Test Item Value Reference Range Interpretation Comments Globulin (test code = Globulin) 3.5 2.7-4.2 [facility]2021-02-19 17:53:00 Test Item Value Reference Range Interpretation Comments A/G Ratio (test code = A/G Ratio) 0.9 1 0.7-1.6 [facility]2021-02-19 17:53:00 Test Item Value Reference Range Interpretation Comments eGFR (test code = eGFR) 27 [facility]1659[facility]-75 17:53:00 Test Item Value Reference Range Interpretation Comments WBC (test code = WBC) 8.6 3.7-10.4 [facility]tywqgaSEQBWBXYTJ2705-06-34 17:53:00 Test Item Value Reference Range Interpretation Comments RBC (test code = RBC) 4.22 4.70-6.10 [facility]BiyyfvdOIDRQSRROX4413-95-87 17:53:00 Test Item Value Reference Range Interpretation Comments Hgb (test code = Hgb) 12.4 14.0-18.0 [facility]QdyvdfoVMUXCBMVVY7789-76-86 17:53:00 Test Item Value Reference Range Interpretation Comments Hct (test code = Hct) 38.8 42.0-54.0 [facility]PdabzfcPTIXKKZSLR6306-30-27 17:53:00 Test Item Value Reference Range Interpretation Comments MCV (test code = MCV) 91.9 80.0-94.0 [place] 437761-02-19 17:53:00 Test Item Value Reference Range Interpretation Comments MCH (test code = MCH) 29.5 pg 27.0-31.0 [place] 437761-02-19 17:53:00 Test Item Value Reference Range Interpretation Comments MCHC (test code = MCHC) 32.1 32.0-36.0 [place] 437761-02-19 17:53:00 Test Item Value Reference Range Interpretation Comments RDW (test code = RDW) 16.4 11.5-14.5 [place] 437761-02-19 17:53:00 Test Item Value Reference Range Interpretation Comments Platelet (test code = Platelet) 168 133-450 [place] 437761-02-19 17:53:00 Test Item Value Reference Range Interpretation Comments MPV (test code = MPV) 9.5 7.4-10.4 [place] 437761-02-19 17:53:00 Test Item Value Reference Range Interpretation Comments PTT (test code = PTT) 82.6 s 22.9-35.8 [place] 437761-02-19 17:53:00 Test Item Value Reference Range Interpretation Comments Segs (test code = Segs) 68.7 45.0-75.0 [place] 437761-02-19 17:53:00 Test Item Value Reference Range Interpretation Comments Lymphocytes (test code = Lymphocytes) 21.3 20.0-40.0 [place] 437761-02-19 17:53:00 Test Item Value Reference Range Interpretation Comments Monocytes (test code = Monocytes) 7.5 2.0-12.0 [place] 437761-02-19 17:53:00 Test Item Value Reference Range Interpretation Comments Eosinophils (test code = 1.7 See_Comment [A utomated message] The Eosinophils) system which ge nerated this result tra nsmitted reference range : <=4.0. The reference r princess was not used to int erpret this result as normal/abnormal . [place] [address]-02-19 17:53:00 Test Item Value Reference Range Interpretation Comments Basophils (test code = 0.8 See_Comment [Aut omated message] The Basophils) system which ge nerated this result tra nsmitted reference range : <=1.0. The reference r princess was not used to int erpret this result as normal/abnormal . [place] 437761-02-19 17:53:00 Test Item Value Reference Range Interpretation Comments Neutrophils # (test code = Neutrophils 5.9 1.5-8.1 #) [place] 437761-02-19 17:53:00 Test Item Value Reference Range Interpretation Comments Lymphocytes # (test code = Lymphocytes 1.8 1.0-5.5 #) [place] 437761-02-19 17:53:00 Test Item Value Reference Range Interpretation Comments Monocytes # (test code 0.7 See_Comment [Aut omated message] The = Monocytes #) system which generated this result tra nsmitted reference range : <=0.8. The reference r princess was not used to int erpret this result as normal/abnormal . [place] 437761-02-19 17:53:00 Test Item Value Reference Range Interpretation Comments Eosinophils # (test code 0.2 See_Comment [A utomated message] The = Eosinophils #) system whic h generated this result tra nsmitted reference range : <=0.5. The reference r princess was not used to int erpret this result as normal/abnormal . [place] 437761-02-19 17:53:00 Test Item Value Reference Range Interpretation Comments Basophils # (test code 0.1 See_Comment [Aut omated message] The = Basophils #) system which generated this result tra nsmitted reference range : <=0.2. The reference r princess was not used to int erpret this result as normal/abnormal . [place] 378941-02-19 17:53:00 Test Item Value Reference Range Interpretation Comments Magnesium Lvl (test code = Magnesium 2.5 1.8-2.4 Lvl) [place] 378941-02-19 17:53:00 Test Item Value Reference Range Interpretation Comments Phosphorus (test code = Phosphorus) 4.3 2.5-4.5 [place] 378941-02-19 17:53:00 Test Item Value Reference Range Interpretation Comments Glucose Lvl (test code = Glucose Lvl) 120 70-99 [place] 378941-02-19 17:53:00 Test Item Value Reference Range Interpretation Comments BUN (test code = BUN) 47 7-22 [place] 378941-02-19 17:53:00 Test Item Value Reference Range Interpretation Comments Creatinine Lvl (test code = Creatinine 2.28 0.50-1.40 Lvl) [place] 378941-02-19 17:53:00 Test Item Value Reference Range Interpretation Comments Sodium Lvl (test code = Sodium Lvl) 127 135-145 [place] 378941-02-19 17:53:00 Test Item Value Reference Range Interpretation Comments Potassium Lvl (test code = Potassium 3.9 3.5-5.1 Lvl) [place] 378941-02-19 17:53:00 Test Item Value Reference Range Interpretation Comments Chloride Lvl (test code = Chloride Lvl) 93 95-109 [place] 378941-02-19 17:53:00 Test Item Value Reference Range Interpretation Comments CO2 (test code = CO2) 24 24-32 [place] 378941-02-19 17:53:00 Test Item Value Reference Range Interpretation Comments Calcium Lvl (test code = Calcium Lvl) 8.8 8.5-10.5 [place] 378941-02-19 17:53:00 Test Item Value Reference Range Interpretation Comments Total Protein (test code = Total 6.5 6.4-8.4 Protein) [place] 378941-02-19 17:53:00 Test Item Value Reference Range Interpretation Comments Albumin Lvl (test code = Albumin Lvl) 3.0 3.5-5.0 [place] 378941-02-19 17:53:00 Test Item Value Reference Range Interpretation Comments ALT (test code = ALT) 377 See_Comment [Auto mated message] The system which ge nerated this result transmit tammi reference range : <=65. The reference range was not used to interpr et this result as josé miguel l/abnormal. [place] 378941-02-19 17:53:00 Test Item Value Reference Range Interpretation Comments AST (test code = AST) 234 See_Comment [Auto mated message] The system which ge nerated this result transmit tammi reference range : <=37. The reference range was not used to interpr et this result as josé miguel l/abnormal. [place] 378941-02-19 17:53:00 Test Item Value Reference Range Interpretation Comments Alk Phos (test code = Alk Phos) 110 39-136 [facility]2021-02-19 17:53:00 Test Item Value Reference Range Interpretation Comments Bili Total (test code = Bili Total) 2.0 0.2-1.3 [place] 378941-02-19 17:53:00 Test Item Value Reference Range Interpretation Comments AGAP (test code = AGAP) 13.9 10.0-20.0 [facility]2021-02-19 17:53:00 Test Item Value Reference Range Interpretation Comments B/C Ratio (test code = B/C Ratio) 21 1 6-25 [facility]2021-02-19 17:53:00 Test Item Value Reference Range Interpretation Comments Globulin (test code = Globulin) 3.5 2.7-4.2 [facility]2021-02-19 17:53:00 Test Item Value Reference Range Interpretation Comments A/G Ratio (test code = A/G Ratio) 0.9 1 0.7-1.6 [facility]2021-02-19 17:53:00 Test Item Value Reference Range Interpretation Comments eGFR (test code = eGFR) 27 [facility]fcjrrbDIXHJCDNAV3568-39-38 17:53:00 Test Item Value Reference Range Interpretation Comments WBC (test code = WBC) 8.6 3.7-10.4 [place] 437761-02-19 17:53:00 Test Item Value Reference Range Interpretation Comments RBC (test code = RBC) 4.22 4.70-6.10 [place] 437761-02-19 17:53:00 Test Item Value Reference Range Interpretation Comments Hgb (test code = Hgb) 12.4 14.0-18.0 [place] 437761-02-19 17:53:00 Test Item Value Reference Range Interpretation Comments Hct (test code = Hct) 38.8 42.0-54.0 [facility]wuurcnRQWFXAPKGQ1646-13-88 17:53:00 Test Item Value Reference Range Interpretation Comments MCV (test code = MCV) 91.9 80.0-94.0 [place] 437761-02-19 17:53:00 Test Item Value Reference Range Interpretation Comments MCH (test code = MCH) 29.5 pg 27.0-31.0 [facility]JjkfgwmXNKQQXDHPZ7450-25-54 17:53:00 Test Item Value Reference Range Interpretation Comments MCHC (test code = MCHC) 32.1 32.0-36.0 [facility]GztynxhWCVUGMICRV5065-38-59 17:53:00 Test Item Value Reference Range Interpretation Comments RDW (test code = RDW) 16.4 11.5-14.5 [facility]SjaxuofZWZXGFMZCL2527-97-46 17:53:00 Test Item Value Reference Range Interpretation Comments Platelet (test code = Platelet) 168 133-450 [facility]WiszappWLFWZUMHDA5753-76-35 17:53:00 Test Item Value Reference Range Interpretation Comments MPV (test code = MPV) 9.5 7.4-10.4 [facility]PtsyystIRTGCUGCLT5200-38-06 17:53:00 Test Item Value Reference Range Interpretation Comments PTT (test code = PTT) 82.6 s 22.9-35.8 [facility]UsanitnYHYYPLLTVH5741-21-31 17:53:00 Test Item Value Reference Range Interpretation Comments Segs (test code = Segs) 68.7 45.0-75.0 [facility]RtxlnfiDIGOHKYDXT4744-39-74 17:53:00 Test Item Value Reference Range Interpretation Comments Lymphocytes (test code = Lymphocytes) 21.3 20.0-40.0 [facility]VrkpzexYJSVKQJRZD5549-48-38 17:53:00 Test Item Value Reference Range Interpretation Comments Monocytes (test code = Monocytes) 7.5 2.0-12.0 [facility]FrhklvuCOFEGLJSCM1537-45-53 17:53:00 Test Item Value Reference Range Interpretation Comments Eosinophils (test code = 1.7 See_Comment [A utomated message] The Eosinophils) system which ge nerated this result tra nsmitted reference range : <=4.0. The reference r princess was not used to int erpret this result as normal/abnormal . [facility]LjrqteeOAVNKAHBZE8282-62-81 17:53:00 Test Item Value Reference Range Interpretation Comments Basophils (test code = 0.8 See_Comment [Aut omated message] The Basophils) system which ge nerated this result tra nsmitted reference range : <=1.0. The reference r princess was not used to int erpret this result as normal/abnormal . [place] [address]-02-19 17:53:00 Test Item Value Reference Range Interpretation Comments Neutrophils # (test code = Neutrophils 5.9 1.5-8.1 #) [place] 437761-02-19 17:53:00 Test Item Value Reference Range Interpretation Comments Lymphocytes # (test code = Lymphocytes 1.8 1.0-5.5 #) [place] 437761-02-19 17:53:00 Test Item Value Reference Range Interpretation Comments Monocytes # (test code 0.7 See_Comment [Aut omated message] The = Monocytes #) system which generated this result tra nsmitted reference range : <=0.8. The reference r princess was not used to int erpret this result as normal/abnormal . [place] 437761-02-19 17:53:00 Test Item Value Reference Range Interpretation Comments Eosinophils # (test code 0.2 See_Comment [A utomated message] The = Eosinophils #) system whic h generated this result tra nsmitted reference range : <=0.5. The reference r princess was not used to int erpret this result as normal/abnormal . [place] 437761-02-19 17:53:00 Test Item Value Reference Range Interpretation Comments Basophils # (test code 0.1 See_Comment [Aut omated message] The = Basophils #) system which generated this result tra nsmitted reference range : <=0.2. The reference r princess was not used to int erpret this result as normal/abnormal . [place] 378941-02-19 17:53:00 Test Item Value Reference Range Interpretation Comments Magnesium Lvl (test code = Magnesium 2.5 1.8-2.4 Lvl) [place] 378941-02-19 17:53:00 Test Item Value Reference Range Interpretation Comments Phosphorus (test code = Phosphorus) 4.3 2.5-4.5 [place] 378941-02-19 17:53:00 Test Item Value Reference Range Interpretation Comments Glucose Lvl (test code = Glucose Lvl) 120 70-99 [place] 378941-02-19 17:53:00 Test Item Value Reference Range Interpretation Comments BUN (test code = BUN) 47 7-22 [place] 378941-02-19 17:53:00 Test Item Value Reference Range Interpretation Comments Creatinine Lvl (test code = Creatinine 2.28 0.50-1.40 Lvl) [facility]2021-02-19 17:53:00 Test Item Value Reference Range Interpretation Comments Sodium Lvl (test code = Sodium Lvl) 127 135-145 [place] 378941-02-19 17:53:00 Test Item Value Reference Range Interpretation Comments Potassium Lvl (test code = Potassium 3.9 3.5-5.1 Lvl) [place] 378941-02-19 17:53:00 Test Item Value Reference Range Interpretation Comments Chloride Lvl (test code = Chloride Lvl) 93 95-109 [place] 378941-02-19 17:53:00 Test Item Value Reference Range Interpretation Comments CO2 (test code = CO2) 24 24-32 [place] 378941-02-19 17:53:00 Test Item Value Reference Range Interpretation Comments Calcium Lvl (test code = Calcium Lvl) 8.8 8.5-10.5 [place] 378941-02-19 17:53:00 Test Item Value Reference Range Interpretation Comments Total Protein (test code = Total 6.5 6.4-8.4 Protein) [place] 378941-02-19 17:53:00 Test Item Value Reference Range Interpretation Comments Albumin Lvl (test code = Albumin Lvl) 3.0 3.5-5.0 [place] 378941-02-19 17:53:00 Test Item Value Reference Range Interpretation Comments ALT (test code = ALT) 377 See_Comment [Auto mated message] The system which [employer] (Closed) nerated this result transmit tammi reference range : <=65. The reference range was not used to interpr et this result as josé miguel l/abnormal. [place] 378941-02-19 17:53:00 Test Item Value Reference Range Interpretation Comments AST (test code = AST) 234 See_Comment [Auto mated message] The system which [employer] (Closed) nerated this result transmit tammi reference range : <=37. The reference range was not used to interpr et this result as josé miguel l/abnormal. [place] 378941-02-19 17:53:00 Test Item Value Reference Range Interpretation Comments Alk Phos (test code = Alk Phos) 110 39-136 [facility]2021-02-19 17:53:00 Test Item Value Reference Range Interpretation Comments Bili Total (test code = Bili Total) 2.0 0.2-1.3 [place] 378941-02-19 17:53:00 Test Item Value Reference Range Interpretation Comments AGAP (test code = AGAP) 13.9 10.0-20.0 [facility]2021-02-19 17:53:00 Test Item Value Reference Range Interpretation Comments B/C Ratio (test code = B/C Ratio) 21 1 6-25 [place] 378941-02-19 17:53:00 Test Item Value Reference Range Interpretation Comments Globulin (test code = Globulin) 3.5 2.7-4.2 [facility]2021-02-19 17:53:00 Test Item Value Reference Range Interpretation Comments A/G Ratio (test code = A/G Ratio) 0.9 1 0.7-1.6 [facility]2021-02-19 17:53:00 Test Item Value Reference Range Interpretation Comments eGFR (test code = eGFR) 27 [facility]JuvbnirWZAEGEKEVL3773-57-65 17:53:00 Test Item Value Reference Range Interpretation Comments WBC (test code = WBC) 8.6 3.7-10.4 [facility]DcodlysDYCEPZJMQE9048-13-76 17:53:00 Test Item Value Reference Range Interpretation Comments RBC (test code = RBC) 4.22 4.70-6.10 [place] 437761-02-19 17:53:00 Test Item Value Reference Range Interpretation Comments Hgb (test code = Hgb) 12.4 14.0-18.0 [place] 437761-02-19 17:53:00 Test Item Value Reference Range Interpretation Comments Hct (test code = Hct) 38.8 42.0-54.0 [place] 437761-02-19 17:53:00 Test Item Value Reference Range Interpretation Comments MCV (test code = MCV) 91.9 80.0-94.0 [place] 437761-02-19 17:53:00 Test Item Value Reference Range Interpretation Comments MCH (test code = MCH) 29.5 pg 27.0-31.0 [place] 437761-02-19 17:53:00 Test Item Value Reference Range Interpretation Comments MCHC (test code = MCHC) 32.1 32.0-36.0 [facility]MfahtvrHGJLFCROES7312-21-28 17:53:00 Test Item Value Reference Range Interpretation Comments RDW (test code = RDW) 16.4 11.5-14.5 [facility]OjghrfgLRCVTIVOMR7146-70-19 17:53:00 Test Item Value Reference Range Interpretation Comments Platelet (test code = Platelet) 168 133-450 [facility]NugfccmVSWNJZLYIE7569-83-31 17:53:00 Test Item Value Reference Range Interpretation Comments MPV (test code = MPV) 9.5 7.4-10.4 [facility]BohtigiVOXPKUGIMI2219-08-31 17:53:00 Test Item Value Reference Range Interpretation Comments PTT (test code = PTT) 82.6 s 22.9-35.8 [facility]MzaczndRCGXVNATXZ1661-46-52 17:53:00 Test Item Value Reference Range Interpretation Comments Segs (test code = Segs) 68.7 45.0-75.0 [facility]WcrewkaNFCSPLHWMJ3028-68-47 17:53:00 Test Item Value Reference Range Interpretation Comments Lymphocytes (test code = Lymphocytes) 21.3 20.0-40.0 [facility]VujjywgOIXQXFJZVR9086-21-44 17:53:00 Test Item Value Reference Range Interpretation Comments Monocytes (test code = Monocytes) 7.5 2.0-12.0 [facility]TnrvogvBVZYBQMOKS4630-77-26 17:53:00 Test Item Value Reference Range Interpretation Comments Eosinophils (test code = 1.7 See_Comment [A utomated message] The Eosinophils) system which ge nerated this result tra nsmitted reference range : <=4.0. The reference r princess was not used to int erpret this result as normal/abnormal . [facility]BbgxfxgOUORKSHBGH6750-17-82 17:53:00 Test Item Value Reference Range Interpretation Comments Basophils (test code = 0.8 See_Comment [Aut omated message] The Basophils) system which ge nerated this result tra nsmitted reference range : <=1.0. The reference r princess was not used to int erpret this result as normal/abnormal . [facility]MnogqzpFOEBLRTFAR0275-08-64 17:53:00 Test Item Value Reference Range Interpretation Comments Neutrophils # (test code = Neutrophils 5.9 1.5-8.1 #) [facility]QvmdljtARVQUYIVVM4766-40-51 17:53:00 Test Item Value Reference Range Interpretation Comments Lymphocytes # (test code = Lymphocytes 1.8 1.0-5.5 #) [place] 437761-02-19 17:53:00 Test Item Value Reference Range Interpretation Comments Monocytes # (test code 0.7 See_Comment [Aut omated message] The = Monocytes #) system which generated this result tra nsmitted reference range : <=0.8. The reference r princess was not used to int erpret this result as normal/abnormal . [place] 437761-02-19 17:53:00 Test Item Value Reference Range Interpretation Comments Eosinophils # (test code 0.2 See_Comment [A utomated message] The = Eosinophils #) system whic h generated this result tra nsmitted reference range : <=0.5. The reference r princess was not used to int erpret this result as normal/abnormal . [place] 437761-02-19 17:53:00 Test Item Value Reference Range Interpretation Comments Basophils # (test code 0.1 See_Comment [Aut omated message] The = Basophils #) system which generated this result tra nsmitted reference range : <=0.2. The reference r princess was not used to int erpret this result as normal/abnormal . [facility]IncgpidDDVBVXHCJG1613-49-05 21:49:00 Test Item Value Reference Range Interpretation Comments PT (test code = PT) 16.8 s 12.0-14.7 [place] 437761-02-18 21:49:00 Test Item Value Reference Range Interpretation Comments INR (test code = INR) 1.39 1 0.85-1.17 [place] 437761-02-18 21:49:00 Test Item Value Reference Range Interpretation Comments WBC (test code = WBC) 9.0 3.7-10.4 [place] 437761-02-18 21:49:00 Test Item Value Reference Range Interpretation Comments RBC (test code = RBC) 4.16 4.70-6.10 [place] 437761-02-18 21:49:00 Test Item Value Reference Range Interpretation Comments Hgb (test code = Hgb) 12.8 14.0-18.0 [facility]BczguweEJFEILUAVM3621-53-64 21:49:00 Test Item Value Reference Range Interpretation Comments Hct (test code = Hct) 38.2 42.0-54.0 [place] 437761-02-18 21:49:00 Test Item Value Reference Range Interpretation Comments MCV (test code = MCV) 91.8 80.0-94.0 [place] 437761-02-18 21:49:00 Test Item Value Reference Range Interpretation Comments MCH (test code = MCH) 30.8 pg 27.0-31.0 [place] 437761-02-18 21:49:00 Test Item Value Reference Range Interpretation Comments MCHC (test code = MCHC) 33.6 32.0-36.0 [place] 437761-02-18 21:49:00 Test Item Value Reference Range Interpretation Comments RDW (test code = RDW) 16.2 11.5-14.5 [place] 437761-02-18 21:49:00 Test Item Value Reference Range Interpretation Comments Platelet (test code = Platelet) 173 133-450 [facility]NrbbttiFWOTQMPRLB1241-41-08 21:49:00 Test Item Value Reference Range Interpretation Comments MPV (test code = MPV) 8.5 7.4-10.4 [place] 437761-02-18 21:49:00 Test Item Value Reference Range Interpretation Comments Segs (test code = Segs) 73.1 45.0-75.0 [place] 437761-02-18 21:49:00 Test Item Value Reference Range Interpretation Comments Lymphocytes (test code = Lymphocytes) 17.4 20.0-40.0 [place] 437761-02-18 21:49:00 Test Item Value Reference Range Interpretation Comments Monocytes (test code = Monocytes) 7.3 2.0-12.0 [place] 437761-02-18 21:49:00 Test Item Value Reference Range Interpretation Comments Eosinophils (test code = 1.6 See_Comment [A utomated message] The Eosinophils) system which ge nerated this result tra nsmitted reference range : <=4.0. The reference r princess was not used to int erpret this result as normal/abnormal . [place] 437761-02-18 21:49:00 Test Item Value Reference Range Interpretation Comments Basophils (test code = 0.6 See_Comment [Aut omated message] The Basophils) system which ge nerated this result tra nsmitted reference range : <=1.0. The reference r princess was not used to int erpret this result as normal/abnormal . [place] 437761-02-18 21:49:00 Test Item Value Reference Range Interpretation Comments Neutrophils # (test code = Neutrophils 6.6 1.5-8.1 #) [facility]CorvjdfMUIHJDUONZ0577-76-37 21:49:00 Test Item Value Reference Range Interpretation Comments Lymphocytes # (test code = Lymphocytes 1.6 1.0-5.5 #) [place] 437761-02-18 21:49:00 Test Item Value Reference Range Interpretation Comments Monocytes # (test code 0.7 See_Comment [Aut omated message] The = Monocytes #) system which generated this result tra nsmitted reference range : <=0.8. The reference r princess was not used to int erpret this result as normal/abnormal . [facility]WekpcdgADUKCQGFYT4321-98-21 21:49:00 Test Item Value Reference Range Interpretation Comments Eosinophils # (test code 0.1 See_Comment [A utomated message] The = Eosinophils #) system whic h generated this result tra nsmitted reference range : <=0.5. The reference r princess was not used to int erpret this result as normal/abnormal . [facility]VbwcnvuEMXLDSFEEM6260-13-14 21:49:00 Test Item Value Reference Range Interpretation Comments Basophils # (test code 0.1 See_Comment [Aut omated message] The = Basophils #) system which generated this result tra nsmitted reference range : <=0.2. The reference r princess was not used to int erpret this result as normal/abnormal . [place] 437761-02-18 21:49:00 Test Item Value Reference Range Interpretation Comments PT (test code = PT) 16.8 s 12.0-14.7 [place] 437761-02-18 21:49:00 Test Item Value Reference Range Interpretation Comments INR (test code = INR) 1.39 1 0.85-1.17 [place] 437761-02-18 21:49:00 Test Item Value Reference Range Interpretation Comments WBC (test code = WBC) 9.0 3.7-10.4 [facility] 21:49:00 Test Item Value Reference Range Interpretation Comments RBC (test code = RBC) 4.16 4.70-6.10 [facility]kilqsfYZDMDSLOYZ5044-47-44 21:49:00 Test Item Value Reference Range Interpretation Comments Hgb (test code = Hgb) 12.8 14.0-18.0 [place] 437761-02-18 21:49:00 Test Item Value Reference Range Interpretation Comments Hct (test code = Hct) 38.2 42.0-54.0 [facility]gualvtVUUUXW[facility]KL0033-59-08 21:49:00 Test Item Value Reference Range Interpretation Comments MCV (test code = MCV) 91.8 80.0-94.0 [place] 437761-02-18 21:49:00 Test Item Value Reference Range Interpretation Comments MCH (test code = MCH) 30.8 pg 27.0-31.0 [facility]SbcyopjGFVDXHGETA3649-59-04 21:49:00 Test Item Value Reference Range Interpretation Comments MCHC (test code = MCHC) 33.6 32.0-36.0 [facility]CsmtvptULLDHLNQTT6653-88-52 21:49:00 Test Item Value Reference Range Interpretation Comments RDW (test code = RDW) 16.2 11.5-14.5 [facility]EisnykjZSWMACLSJN4456-30-95 21:49:00 Test Item Value Reference Range Interpretation Comments Platelet (test code = Platelet) 173 133-450 [facility]MmvpaduNCOPXVVRWW1226-34-15 21:49:00 Test Item Value Reference Range Interpretation Comments MPV (test code = MPV) 8.5 7.4-10.4 [facility]UqhpbzdYLFIERRVEJ5249-99-71 21:49:00 Test Item Value Reference Range Interpretation Comments Segs (test code = Segs) 73.1 45.0-75.0 [facility]OknjwdxIEZENETFFH4931-46-27 21:49:00 Test Item Value Reference Range Interpretation Comments Lymphocytes (test code = Lymphocytes) 17.4 20.0-40.0 [facility]LalzyrhBFUBSTGOQC4441-22-86 21:49:00 Test Item Value Reference Range Interpretation Comments Monocytes (test code = Monocytes) 7.3 2.0-12.0 [place] 437761-02-18 21:49:00 Test Item Value Reference Range Interpretation Comments Eosinophils (test code = 1.6 See_Comment [A utomated message] The Eosinophils) system which ge nerated this result tra nsmitted reference range : <=4.0. The reference r princess was not used to int erpret this result as normal/abnormal . [place] 437761-02-18 21:49:00 Test Item Value Reference Range Interpretation Comments Basophils (test code = 0.6 See_Comment [Aut omated message] The Basophils) system which ge nerated this result tra nsmitted reference range : <=1.0. The reference r princess was not used to int erpret this result as normal/abnormal . [place] 437761-02-18 21:49:00 Test Item Value Reference Range Interpretation Comments Neutrophils # (test code = Neutrophils 6.6 1.5-8.1 #) [place] 437761-02-18 21:49:00 Test Item Value Reference Range Interpretation Comments Lymphocytes # (test code = Lymphocytes 1.6 1.0-5.5 #) [place] 437761-02-18 21:49:00 Test Item Value Reference Range Interpretation Comments Monocytes # (test code 0.7 See_Comment [Aut omated message] The = Monocytes #) system which generated this result tra nsmitted reference range : <=0.8. The reference r princess was not used to int erpret this result as normal/abnormal . [place] 437761-02-18 21:49:00 Test Item Value Reference Range Interpretation Comments Eosinophils # (test code 0.1 See_Comment [A utomated message] The = Eosinophils #) system whic h generated this result tra nsmitted reference range : <=0.5. The reference r princess was not used to int erpret this result as normal/abnormal . [place] 437761-02-18 21:49:00 Test Item Value Reference Range Interpretation Comments Basophils # (test code 0.1 See_Comment [Aut omated message] The = Basophils #) system which generated this result tra nsmitted reference range : <=0.2. The reference r princess was not used to int erpret this result as normal/abnormal . [facility]obrltOYQMNFPVKY1289-25-17 21:49:00 Test Item Value Reference Range Interpretation Comments PT (test code = PT) 16.8 s 12.0-14.7 [place] 437761-02-18 21:49:00 Test Item Value Reference Range Interpretation Comments INR (test code = INR) 1.39 1 0.85-1.17 [place] 437761-02-18 21:49:00 Test Item Value Reference Range Interpretation Comments WBC (test code = WBC) 9.0 3.7-10.4 [place] 437761-02-18 21:49:00 Test Item Value Reference Range Interpretation Comments RBC (test code = RBC) 4.16 4.70-6.10 [place] 437761-02-18 21:49:00 Test Item Value Reference Range Interpretation Comments Hgb (test code = Hgb) 12.8 14.0-18.0 [place] 437761-02-18 21:49:00 Test Item Value Reference Range Interpretation Comments Hct (test code = Hct) 38.2 42.0-54.0 [place] 437761-02-18 21:49:00 Test Item Value Reference Range Interpretation Comments MCV (test code = MCV) 91.8 80.0-94.0 [place] 437761-02-18 21:49:00 Test Item Value Reference Range Interpretation Comments MCH (test code = MCH) 30.8 pg 27.0-31.0 [place] 437761-02-18 21:49:00 Test Item Value Reference Range Interpretation Comments MCHC (test code = MCHC) 33.6 32.0-36.0 [place] 437761-02-18 21:49:00 Test Item Value Reference Range Interpretation Comments RDW (test code = RDW) 16.2 11.5-14.5 [place] 437761-02-18 21:49:00 Test Item Value Reference Range Interpretation Comments Platelet (test code = Platelet) 173 133-450 [place] 437761-02-18 21:49:00 Test Item Value Reference Range Interpretation Comments MPV (test code = MPV) 8.5 7.4-10.4 [place] 437761-02-18 21:49:00 Test Item Value Reference Range Interpretation Comments Segs (test code = Segs) 73.1 45.0-75.0 [place] 437761-02-18 21:49:00 Test Item Value Reference Range Interpretation Comments Lymphocytes (test code = Lymphocytes) 17.4 20.0-40.0 [place] 437761-02-18 21:49:00 Test Item Value Reference Range Interpretation Comments Monocytes (test code = Monocytes) 7.3 2.0-12.0 [place] 437761-02-18 21:49:00 Test Item Value Reference Range Interpretation Comments Eosinophils (test code = 1.6 See_Comment [A utomated message] The Eosinophils) system which ge nerated this result tra nsmitted reference range : <=4.0. The reference r princess was not used to int erpret this result as normal/abnormal . [place] 437761-02-18 21:49:00 Test Item Value Reference Range Interpretation Comments Basophils (test code = 0.6 See_Comment [Aut omated message] The Basophils) system which ge nerated this result tra nsmitted reference range : <=1.0. The reference r princess was not used to int erpret this result as normal/abnormal . [place] 437761-02-18 21:49:00 Test Item Value Reference Range Interpretation Comments Neutrophils # (test code = Neutrophils 6.6 1.5-8.1 #) [place] 437761-02-18 21:49:00 Test Item Value Reference Range Interpretation Comments Lymphocytes # (test code = Lymphocytes 1.6 1.0-5.5 #) [place] 437761-02-18 21:49:00 Test Item Value Reference Range Interpretation Comments Monocytes # (test code 0.7 See_Comment [Aut omated message] The = Monocytes #) system which generated this result tra nsmitted reference range : <=0.8. The reference r princess was not used to int erpret this result as normal/abnormal . [place] 437761-02-18 21:49:00 Test Item Value Reference Range Interpretation Comments Eosinophils # (test code 0.1 See_Comment [A utomated message] The = Eosinophils #) system whic h generated this result tra nsmitted reference range : <=0.5. The reference r princess was not used to int erpret this result as normal/abnormal . [place] 437761-02-18 21:49:00 Test Item Value Reference Range Interpretation Comments Basophils # (test code 0.1 See_Comment [Aut omated message] The = Basophils #) system which generated this result tra nsmitted reference range : <=0.2. The reference r princess was not used to int erpret this result as normal/abnormal . [place] 378941-02-18 16:41:00 Test Item Value Reference Range Interpretation Comments Procalcitonin Lvl (test 0.14 See_Comment [Au tomated message] code = Procalcitonin Lvl) Th e system which generated this result transmitted ref erence range: <=0.10. The reference range was not used to interpr et this result as normal/abnormal . [place] 378941-02-18 16:41:00 Test Item Value Reference Range Interpretation Comments Procalcitonin Lvl (test 0.14 See_Comment [Au tomated message] code = Procalcitonin Lvl) Th e system which generated this result transmitted ref erence range: <=0.10. The reference range was not used to interpr et this result as normal/abnormal . [place] 378941-02-18 16:41:00 Test Item Value Reference Range Interpretation Comments Procalcitonin Lvl (test 0.14 See_Comment [Au tomated message] code = Procalcitonin Lvl) Th e system which generated this result transmitted ref erence range: <=0.10. The reference range was not used to interpr et this result as normal/abnormal . [place] 378941-02-18 10:26:00 Test Item Value Reference Range Interpretation Comments Magnesium Lvl (test code = Magnesium 2.3 1.8-2.4 Lvl) [place] 378941-02-18 10:26:00 Test Item Value Reference Range Interpretation Comments Phosphorus (test code = Phosphorus) 5.0 2.5-4.5 [place] 378941-02-18 10:26:00 Test Item Value Reference Range Interpretation Comments Magnesium Lvl (test code = Magnesium 2.3 1.8-2.4 Lvl) [place] 378941-02-18 10:26:00 Test Item Value Reference Range Interpretation Comments Phosphorus (test code = Phosphorus) 5.0 2.5-4.5 [facility] [id number] 10:26:00 Test Item Value Reference Range Interpretation Comments Magnesium Lvl (test code = Magnesium 2.3 1.8-2.4 Lvl) [facility] [id number] 10:26:00 Test Item Value Reference Range Interpretation Comments Phosphorus (test code = Phosphorus) 5.0 2.5-4.5 [facility] [id number] 20:40:00 Test Item Value Reference Range Interpretation Comments Alb BF Type (test Pleural (12/16/20 2:40 code = Alb BF Type) PM) [facility]2021-02-16 20:40:00 Test Item Value Reference Range Interpretation Comments Albumin BF (test code = Albumin BF) 1.1 [facility]2021-02-16 20:40:00 Test Item Value Reference Range Interpretation Comments Color BF (test code = Yellow (12/16/20 2:40 Color BF) PM) [facility]2021-02-16 20:40:00 Test Item Value Reference Range Interpretation Comments Clarity BF (test code = Slight Cloudy (12/16/20 Clarity BF) 2:40 PM) [facility] [id number] 20:40:00 Test Item Value Reference Range Interpretation Comments Nucleated Cells BF (test code = 784 Nucleated Cells BF) [facility] [id number] 20:40:00 Test Item Value Reference Range Interpretation Comments RBC BF (test code = RBC BF) 480 [facility] [id number] 20:40:00 Test Item Value Reference Range Interpretation Comments CellCnt BF Type (test Pleural (12/16/20 2:40 code = CellCnt BF Type) PM) [facility] [id number] 20:40:00 Test Item Value Reference Range Interpretation Comments Neutrophils BF (test code = Neutrophils 39 BF) [facility] HospitalWurlQKILOG9319-28-77 20:40:00 Test Item Value Reference Range Interpretation Comments Lymph BF (test code = Lymph BF) 50 [facility] HospitalWurlVDGOJM3235-06-04 20:40:00 Test Item Value Reference Range Interpretation Comments Macrophage BF (test code = Macrophage 11 BF) [facility] [id number] 20:40:00 Test Item Value Reference Range Interpretation Comments Gluc BF Type (test Pleural (12/16/20 2:40 code = Gluc BF Type) PM) [facility] [id number] 20:40:00 Test Item Value Reference Range Interpretation Comments Glucose BF (test code = Glucose BF) 110 [facility] [id number] 20:40:00 Test Item Value Reference Range Interpretation Comments LDH BF Type (test Pleural (12/16/20 2:40 code = LDH BF Type) PM) [facility] [id number] 20:40:00 Test Item Value Reference Range Interpretation Comments LDH BF (test code = LDH BF) 109 [facility] [id number] 20:40:00 Test Item Value Reference Range Interpretation Comments Lipase BF Type (test Pleural (12/16/20 2:40 code = Lipase BF Type) PM) [facility] [id number] 20:40:00 Test Item Value Reference Range Interpretation Comments Lipase BF (test code = Lipase BF) no gt [facility] [id number] 20:40:00 Test Item Value Reference Range Interpretation Comments pH BF Type (test code Pleural (12/16/20 2:40 = pH BF Type) PM) [facility] [id number] 20:40:00 Test Item Value Reference Range Interpretation Comments BODY FLUID, PH (test code = BODY 8.00 1 FLUID, PH) [facility] [id number] 20:40:00 Test Item Value Reference Range Interpretation Comments Prot BF Type (test Pleural (12/16/20 2:40 code = Prot BF Type) PM) [facility] [id number] 20:40:00 Test Item Value Reference Range Interpretation Comments Protein BF (test code = Protein BF) 2.2 [facility] [id number] 20:40:00 Test Item Value Reference Range Interpretation Comments Trig BF Type (test Pleural (12/16/20 2:40 code = Trig BF Type) PM) [facility] [id number] 20:40:00 Test Item Value Reference Range Interpretation Comments Trig BF (test code = Trig BF) 15 [facility] [id number] 20:40:00 Test Item Value Reference Range Interpretation Comments Gram Stain Report Many WBC's Seen No (test code = Gram Organisms Seen Stain Report) [facility] Aspirate/Body Fluid/[id number] 20:40:00 Test Item Value Reference Range Interpretation Comments Culture: Aspirate/Body Fluid/Tissue No Growth (test code = Culture: Aspirate/Body Fluid/Tissue) [facility]2021-02-16 20:40:00 Test Item Value Reference Range Interpretation Comments Alb BF Type (test Pleural (12/16/20 2:40 code = Alb BF Type) PM) [facility]2021-02-16 20:40:00 Test Item Value Reference Range Interpretation Comments Albumin BF (test code = Albumin BF) 1.1 [facility]2021-02-16 20:40:00 Test Item Value Reference Range Interpretation Comments Color BF (test code = Yellow (12/16/20 2:40 Color BF) PM) [facility]2021-02-16 20:40:00 Test Item Value Reference Range Interpretation Comments Clarity BF (test code = Slight Cloudy (12/16/20 Clarity BF) 2:40 PM) [facility]2021-02-16 20:40:00 Test Item Value Reference Range Interpretation Comments Nucleated Cells BF (test code = 784 Nucleated Cells BF) [facility]2021-02-16 20:40:00 Test Item Value Reference Range Interpretation Comments RBC BF (test code = RBC BF) 480 [facility]2021-02-16 20:40:00 Test Item Value Reference Range Interpretation Comments CellCnt BF Type (test Pleural (12/16/20 2:40 code = CellCnt BF Type) PM) [facility]2021-02-16 20:40:00 Test Item Value Reference Range Interpretation Comments Neutrophils BF (test code = Neutrophils 39 BF) [facility]2021-02-16 20:40:00 Test Item Value Reference Range Interpretation Comments Lymph BF (test code = Lymph BF) 50 [facility]2021-02-16 20:40:00 Test Item Value Reference Range Interpretation Comments Macrophage BF (test code = Macrophage 11 BF) [facility]2021-02-16 20:40:00 Test Item Value Reference Range Interpretation Comments Gluc BF Type (test Pleural (12/16/20 2:40 code = Gluc BF Type) PM) [facility] [id number] 20:40:00 Test Item Value Reference Range Interpretation Comments Glucose BF (test code = Glucose BF) 110 [facility] [id number] 20:40:00 Test Item Value Reference Range Interpretation Comments LDH BF Type (test Pleural (12/16/20 2:40 code = LDH BF Type) PM) [facility] [id number] 20:40:00 Test Item Value Reference Range Interpretation Comments LDH BF (test code = LDH BF) 109 [facility] [id number] 20:40:00 Test Item Value Reference Range Interpretation Comments Lipase BF Type (test Pleural (12/16/20 2:40 code = Lipase BF Type) PM) [facility]2021-02-16 20:40:00 Test Item Value Reference Range Interpretation Comments Lipase BF (test code = Lipase BF) no gt [facility]2021-02-16 20:40:00 Test Item Value Reference Range Interpretation Comments pH BF Type (test code Pleural (12/16/20 2:40 = pH BF Type) PM) [facility]2021-02-16 20:40:00 Test Item Value Reference Range Interpretation Comments BODY FLUID, PH (test code = BODY 8.00 1 FLUID, PH) [facility] [id number] 20:40:00 Test Item Value Reference Range Interpretation Comments Prot BF Type (test Pleural (12/16/20 2:40 code = Prot BF Type) PM) [facility]2021-02-16 20:40:00 Test Item Value Reference Range Interpretation Comments Protein BF (test code = Protein BF) 2.2 [facility] [id number] 20:40:00 Test Item Value Reference Range Interpretation Comments Trig BF Type (test Pleural (12/16/20 2:40 code = Trig BF Type) PM) [facility] [id number] 20:40:00 Test Item Value Reference Range Interpretation Comments Trig BF (test code = Trig BF) 15 [facility] [id number] 20:40:00 Test Item Value Reference Range Interpretation Comments Gram Stain Report Many WBC's Seen No (test code = Gram Organisms Seen Stain Report) [facility] Aspirate/Body Fluid/[id number] 20:40:00 Test Item Value Reference Range Interpretation Comments Culture: Aspirate/Body Fluid/Tissue No Growth (test code = Culture: Aspirate/Body Fluid/Tissue) [facility]2021-02-16 20:40:00 Test Item Value Reference Range Interpretation Comments Alb BF Type (test Pleural (12/16/20 2:40 code = Alb BF Type) PM) [facility]2021-02-16 20:40:00 Test Item Value Reference Range Interpretation Comments Albumin BF (test code = Albumin BF) 1.1 [facility]2021-02-16 20:40:00 Test Item Value Reference Range Interpretation Comments Color BF (test code = Yellow (12/16/20 2:40 Color BF) PM) [facility]2021-02-16 20:40:00 Test Item Value Reference Range Interpretation Comments Clarity BF (test code = Slight Cloudy (12/16/20 Clarity BF) 2:40 PM) [facility]2021-02-16 20:40:00 Test Item Value Reference Range Interpretation Comments Nucleated Cells BF (test code = 784 Nucleated Cells BF) [facility]2021-02-16 20:40:00 Test Item Value Reference Range Interpretation Comments RBC BF (test code = RBC BF) 480 [facility]2021-02-16 20:40:00 Test Item Value Reference Range Interpretation Comments CellCnt BF Type (test Pleural (12/16/20 2:40 code = CellCnt BF Type) PM) [facility]2021-02-16 20:40:00 Test Item Value Reference Range Interpretation Comments Neutrophils BF (test code = Neutrophils 39 BF) [facility]2021-02-16 20:40:00 Test Item Value Reference Range Interpretation Comments Lymph BF (test code = Lymph BF) 50 [facility]2021-02-16 20:40:00 Test Item Value Reference Range Interpretation Comments Macrophage BF (test code = Macrophage 11 BF) [facility]2021-02-16 20:40:00 Test Item Value Reference Range Interpretation Comments Gluc BF Type (test Pleural (12/16/20 2:40 code = Gluc BF Type) PM) [facility]2021-02-16 20:40:00 Test Item Value Reference Range Interpretation Comments Glucose BF (test code = Glucose BF) 110 [facility] [id number] 20:40:00 Test Item Value Reference Range Interpretation Comments LDH BF Type (test Pleural (12/16/20 2:40 code = LDH BF Type) PM) [facility] [id number] 20:40:00 Test Item Value Reference Range Interpretation Comments LDH BF (test code = LDH BF) 109 [facility] [id number] 20:40:00 Test Item Value Reference Range Interpretation Comments Lipase BF Type (test Pleural (12/16/20 2:40 code = Lipase BF Type) PM) [facility] [id number] 20:40:00 Test Item Value Reference Range Interpretation Comments Lipase BF (test code = Lipase BF) no gt [facility] [id number] 20:40:00 Test Item Value Reference Range Interpretation Comments pH BF Type (test code Pleural (12/16/20 2:40 = pH BF Type) PM) [facility] [id number] 20:40:00 Test Item Value Reference Range Interpretation Comments BODY FLUID, PH (test code = BODY 8.00 1 FLUID, PH) [facility] [id number] 20:40:00 Test Item Value Reference Range Interpretation Comments Prot BF Type (test Pleural (12/16/20 2:40 code = Prot BF Type) PM) [facility] [id number] 20:40:00 Test Item Value Reference Range Interpretation Comments Protein BF (test code = Protein BF) 2.2 [facility] [id number] 20:40:00 Test Item Value Reference Range Interpretation Comments Trig BF Type (test Pleural (12/16/20 2:40 code = Trig BF Type) PM) [facility] [id number] 20:40:00 Test Item Value Reference Range Interpretation Comments Trig BF (test code = Trig BF) 15 [facility] [id number] 20:40:00 Test Item Value Reference Range Interpretation Comments Gram Stain Report Many WBC's Seen No (test code = Gram Organisms Seen Stain Report) [facility] Aspirate/Body Fluid/[id number] 20:40:00 Test Item Value Reference Range Interpretation Comments Culture: Aspirate/Body Fluid/Tissue No Growth (test code = Culture: Aspirate/Body Fluid/Tissue) [facility] H[id number] 17:23:00 Test Item Value Reference Range Interpretation Comments Coronavirus (COVID-19) Not Detected (12/16/20 NATHALY (test code = 11:23 AM) Coronavirus (COVID-19) NATHALY) [id number] 17:23:00 Test Item Value Reference Range Interpretation Comments Coronavirus (COVID-19) Not Detected (12/16/20 NATHALY (test code = 11:23 AM) Coronavirus (COVID-19) NATHALY) [facility] [id number] 17:23:00 Test Item Value Reference Range Interpretation Comments Coronavirus (COVID-19) Not Detected (12/16/20 NATHALY (test code = 11:23 AM) Coronavirus (COVID-19) NATHALY) [facility] [id number] 00:34:00 Test Item Value Reference Range Interpretation Comments LDH (test code = LDH) 192 98-192 [facility] [id number] 00:34:00 Test Item Value Reference Range Interpretation Comments Total Protein (test code = Total 6.8 6.4-8.4 Protein) [facility] Interactive [id number] 00:34:00 Test Item Value Reference Range Interpretation Comments LDH (test code = LDH) 192 98-192 [facility] [id number] 00:34:00 Test Item Value Reference Range Interpretation Comments Total Protein (test code = Total 6.8 6.4-8.4 Protein) [facility] [id number] 00:34:00 Test Item Value Reference Range Interpretation Comments LDH (test code = LDH) 192 98-192 [facility] [id number] 00:34:00 Test Item Value Reference Range Interpretation Comments Total Protein (test code = Total 6.8 6.4-8.4 Protein) [facility] 14:33:00 Test Item Value Reference Range Interpretation Comments BNP (test code = BNP) 1703 [id number] 14:33:00 Test Item Value Reference Range Interpretation Comments BNP (test code = BNP) 1703 [facility] [id number] 14:33:00 Test Item Value Reference Range Interpretation Comments BNP (test code = BNP) 1703 [facility] [id number] 09:02:00 Test Item Value Reference Range Interpretation Comments B/C Ratio (test code = B/C Ratio) 18 1 6-25 [facility] [id number] 09:02:00 Test Item Value Reference Range Interpretation Comments Albumin Lvl (test code = Albumin Lvl) 2.9 3.5-5.0 [facility] [id number] 09:02:00 Test Item Value Reference Range Interpretation Comments Globulin (test code = Globulin) 3.7 2.7-4.2 [facility] [id number] 09:02:00 Test Item Value Reference Range Interpretation Comments A/G Ratio (test code = A/G Ratio) 0.8 1 0.7-1.6 [facility] [id number] 09:02:00 Test Item Value Reference Range Interpretation Comments ALT (test code = ALT) 48 See_Comment [Auto mated message] The system which ge nerated this result transmit tammi reference range : <=65. The reference range was not used to interpr et this result as josé miguel l/abnormal. [facility] [id number] 09:02:00 Test Item Value Reference Range Interpretation Comments AST (test code = AST) 37 See_Comment [Auto mated message] The system which ge nerated this result transmit tammi reference range : <=37. The reference range was not used to interpr et this result as josé miguel l/abnormal. [facility] [id number] 09:02:00 Test Item Value Reference Range Interpretation Comments Alk Phos (test code = Alk Phos) 94 39-136 [facility] [id number] 09:02:00 Test Item Value Reference Range Interpretation Comments Bili Total (test code = Bili Total) 1.3 0.2-1.3 [facility] [id number] 09:02:00 Test Item Value Reference Range Interpretation Comments B/C Ratio (test code = B/C Ratio) 18 1 6-25 [facility] [id number] 09:02:00 Test Item Value Reference Range Interpretation Comments Albumin Lvl (test code = Albumin Lvl) 2.9 3.5-5.0 [facility] [id number] 09:02:00 Test Item Value Reference Range Interpretation Comments Globulin (test code = Globulin) 3.7 2.7-4.2 [place] [id number] 09:02:00 Test Item Value Reference Range Interpretation Comments A/G Ratio (test code = A/G Ratio) 0.8 1 0.7-1.6 [place] [id number] 09:02:00 Test Item Value Reference Range Interpretation Comments ALT (test code = ALT) 48 See_Comment [Auto mated message] The system which ge nerated this result transmit tammi reference range : <=65. The reference range was not used to interpr et this result as josé miguel l/abnormal. [facility] [id number] 09:02:00 Test Item Value Reference Range Interpretation Comments AST (test code = AST) 37 See_Comment [Auto mated message] The system which ge nerated this result transmit tammi reference range : <=37. The reference range was not used to interpr et this result as josé miguel l/abnormal. [facility] [id number] 09:02:00 Test Item Value Reference Range Interpretation Comments Alk Phos (test code = Alk Phos) 94 39-136 [facility] [id number] 09:02:00 Test Item Value Reference Range Interpretation Comments Bili Total (test code = Bili Total) 1.3 0.2-1.3 [facility] [id number] 09:02:00 Test Item Value Reference Range Interpretation Comments B/C Ratio (test code = B/C Ratio) 18 1 6-25 [facility] [id number] 09:02:00 Test Item Value Reference Range Interpretation Comments Albumin Lvl (test code = Albumin Lvl) 2.9 3.5-5.0 [facility] [id number] 09:02:00 Test Item Value Reference Range Interpretation Comments Globulin (test code = Globulin) 3.7 2.7-4.2 [facility] [id number] 09:02:00 Test Item Value Reference Range Interpretation Comments A/G Ratio (test code = A/G Ratio) 0.8 1 0.7-1.6 [facility] [employer]2021-02-13 09:02:00 Test Item Value Reference Range Interpretation Comments ALT (test code = ALT) 48 See_Comment [Auto mated message] The system which ge nerated this result transmit tammi reference range : <=65. The reference range was not used to interpr et this result as josé miguel l/abnormal. [facility] [employer]2021-02-13 09:02:00 Test Item Value Reference Range Interpretation Comments AST (test code = AST) 37 See_Comment [Auto mated message] The system which ge nerated this result transmit tammi reference range : <=37. The reference range was not used to interpr et this result as josé miguel l/abnormal. [facility] [id number] 09:02:00 Test Item Value Reference Range Interpretation Comments Alk Phos (test code = Alk Phos) 94 39-136 [facility] [employer]2021-02-13 09:02:00 Test Item Value Reference Range Interpretation Comments Bili Total (test code = Bili Total) 1.3 0.2-1.3 [facility] [employer]2021-02-13 05:01:00 Test Item Value Reference Range Interpretation Comments Troponin-I (test code 0.04 See_Comment [Auto mated message] The = Troponin-I) system which g enerated this result transmit tammi reference range : <=0.40. The reference r princess was not used to interpr et this result as josé miguel l/abnormal. [facility] [employer]2021-02-13 05:01:00 Test Item Value Reference Range Interpretation Comments Troponin-I (test code 0.04 See_Comment [Auto mated message] The = Troponin-I) system which g enerated this result transmit tammi reference range : <=0.40. The reference r princess was not used to interpr et this result as josé miguel l/abnormal. [facility] [employer]2021-02-13 05:01:00 Test Item Value Reference Range Interpretation Comments Troponin-I (test code 0.04 See_Comment [Auto mated message] The = Troponin-I) system which g enerated this result transmit tammi reference range : <=0.40. The reference r princess was not used to interpr et this result as josé miguel l/abnormal. [facility] HospitalYactraq OnlineASCENSION RIVER DISTRICT [id number] 00:03:00 Test Item Value Reference Range Interpretation Comments Troponin-I (test code 0.03 See_Comment [Auto mated message] The = Troponin-I) system which g enerated this result transmit tammi reference range : <=0.40. The reference r princess was not used to interpr et this result as josé miguel l/abnormal. [facility] [id number] 00:03:00 Test Item Value Reference Range Interpretation Comments Bili Direct (test code 0.5 See_Comment [Aut omated message] The = Bili Direct) system which generated this result tra nsmitted reference range : <=0.3. The reference r princess was not used to int erpret this result as josé miguel l/abnormal. [facility] [id number] 00:03:00 Test Item Value Reference Range Interpretation Comments Bili Indirect (test 1.0 See_Comment [Automa tammi message] The code = Bili Indirect) system which generated this result tra nsmitted reference range : <=1.0. The reference r princess was not used to int erpret this result as normal/abnormal . [facility]2021-02-13 00:03:00 Test Item Value Reference Range Interpretation Comments Troponin-I (test code 0.03 See_Comment [Auto mated message] The = Troponin-I) system which g enerated this result transmit tammi reference range : <=0.40. The reference r princess was not used to interpr et this result as josé miguel l/abnormal. [facility] [id number] 00:03:00 Test Item Value Reference Range Interpretation Comments Bili Direct (test code 0.5 See_Comment [Aut omated message] The = Bili Direct) system which generated this result tra nsmitted reference range : <=0.3. The reference r princess was not used to int erpret this result as josé miguel l/abnormal. [facility] [id number] 00:03:00 Test Item Value Reference Range Interpretation Comments Bili Indirect (test 1.0 See_Comment [Automa tammi message] The code = Bili Indirect) system which generated this result tra nsmitted reference range : <=1.0. The reference r princess was not used to int erpret this result as normal/abnormal . [facility] [id number] 00:03:00 Test Item Value Reference Range Interpretation Comments Troponin-I (test code 0.03 See_Comment [Auto mated message] The = Troponin-I) system which g enerated this result transmit tammi reference range : <=0.40. The reference r princess was not used to interpr et this result as josé miguel l/abnormal. [facility] [id number] 00:03:00 Test Item Value Reference Range Interpretation Comments Bili Direct (test code 0.5 See_Comment [Aut omated message] The = Bili Direct) system which generated this result tra nsmitted reference range : <=0.3. The reference r princess was not used to int erpret this result as josé miguel l/abnormal. [facility] [id number] 00:03:00 Test Item Value Reference Range Interpretation Comments Bili Indirect (test 1.0 See_Comment [Automa tammi message] The code = Bili Indirect) system which generated this result tra nsmitted reference range : <=1.0. The reference r princess was not used to int erpret this result as normal/abnormal . [facility][] BASIC METABOLIC PANEL [id number] 09:07:00 Test Item Value Reference Range Interpretation Comments Glucose; Above High Threshold 101 mg/dL 65-99 (test code = 2345-7) BUN (test code = 3094-0) 17 mg/dL 8-27 Creatinine; Above High 1.49 mg/dL 0.76-1.27 Threshold (test code = 2160-0) eGFR If NonAfrcn Am; Below Low 45 mL/min/1.7 >59 Threshold (test code = 26853-2) eGFR If Africn Am; Below Low 52 mL/min/1.7 >59 Threshold (test code = 47411-8) BUN/Creatinine Ratio (test code 08-23 = 3097-3) Sodium, Serum (test code = 134 mmol/L 488-466 6767-2) Potassium; Below Low Threshold 3.2 mmol/L 3.5-5.2 (test code = 2823-3) Chloride; Below Low Threshold 93 mmol/L 96-106 (test code = 2075-0) Carbon Dioxide, Total (test 25 mmol/L code = 2028-9) Calcium (test code = 47331-4) 9.1 mg/dL 8.6-10.2 [facility][QL] [id number] 09:07:00 Test Item Value Reference Range Interpretation Comments Magnesium, Serum (test code = 1.7 mg/dL 1.6-2.3 99620-3) [facility][QL] B TYPE NATRIURETIC PEPTIDE (BNP)2020-12-11 09:07:00 Test Item Value Reference Range Interpretation Comments B-Type Natriuretic Peptide; 1066.2 pg/mL 0.0-100.0 Above High Threshold (test code = 24491-5) [facility][QL] B TYPE NATRIURETIC PEPTIDE (BNP)2020-12-04 08:28:00 Test Item Value Reference Range Interpretation Comments B-Type Natriuretic Peptide; 1259.7 pg/mL 0.0-100.0 Above High Threshold (test code = 98583-9) [facility] [id number] 09:42:00 Test Item Value Reference Range Interpretation Comments Glucose Lvl (test code = Glucose Lvl) 101 70-99 [facility]2021-01-24 09:42:00 Test Item Value Reference Range Interpretation Comments BUN (test code = BUN) 19 -22 [facility]2021-01-24 09:42:00 Test Item Value Reference Range Interpretation Comments Creatinine Lvl (test code = Creatinine 0.87 0.50-1.40 Lvl) [facility] [id number] 09:42:00 Test Item Value Reference Range Interpretation Comments Sodium Lvl (test code = Sodium Lvl) 138 135-145 [facility]2021-01-24 09:42:00 Test Item Value Reference Range Interpretation Comments Potassium Lvl (test code = Potassium 3.8 3.5-5.1 Lvl) [facility]2021-01-24 09:42:00 Test Item Value Reference Range Interpretation Comments Chloride Lvl (test code = Chloride Lvl) 105 95-109 [facility]2021-01-24 09:42:00 Test Item Value Reference Range Interpretation Comments CO2 (test code = CO2) - [place] 378941-01-24 09:42:00 Test Item Value Reference Range Interpretation Comments Calcium Lvl (test code = Calcium Lvl) 8.1 8.5-10.5 [place] 378941-01-24 09:42:00 Test Item Value Reference Range Interpretation Comments AGAP (test code = AGAP) 11.8 10.0-20.0 [place] 378941-01-24 09:42:00 Test Item Value Reference Range Interpretation Comments eGFR (test code = eGFR) 84 [place] 437761-01-24 09:42:00 Test Item Value Reference Range Interpretation Comments Segs (test code = Segs) 75.2 45.0-75.0 [place] 437761-01-24 09:42:00 Test Item Value Reference Range Interpretation Comments Lymphocytes (test code = Lymphocytes) 13.3 20.0-40.0 [place] 437761-01-24 09:42:00 Test Item Value Reference Range Interpretation Comments Monocytes (test code = Monocytes) 9.7 2.0-12.0 [place] 437761-01-24 09:42:00 Test Item Value Reference Range Interpretation Comments Eosinophils (test code = 1.3 See_Comment [A utomated message] The Eosinophils) system which ge nerated this result tra nsmitted reference range : <=4.0. The reference r princess was not used to int erpret this result as normal/abnormal . [place] 437761-01-24 09:42:00 Test Item Value Reference Range Interpretation Comments Basophils (test code = 0.5 See_Comment [Aut omated message] The Basophils) system which ge nerated this result tra nsmitted reference range : <=1.0. The reference r princess was not used to int erpret this result as normal/abnormal . [place] 437761-01-24 09:42:00 Test Item Value Reference Range Interpretation Comments Neutrophils # (test code = Neutrophils 5.2 1.5-8.1 #) [place] 437761-01-24 09:42:00 Test Item Value Reference Range Interpretation Comments Lymphocytes # (test code = Lymphocytes 0.9 1.0-5.5 #) [place] 437761-01-24 09:42:00 Test Item Value Reference Range Interpretation Comments Monocytes # (test code 0.7 See_Comment [Aut omated message] The = Monocytes #) system which generated this result tra nsmitted reference range : <=0.8. The reference r princess was not used to int erpret this result as normal/abnormal . [facility]qtrBV[facility]XRWAJR[facility]228-72-33 09:42:00 Test Item Value Reference Range Interpretation Comments Eosinophils # (test code 0.1 See_Comment [A utomated message] The = Eosinophils #) system whic h generated this result tra nsmitted reference range : <=0.5. The reference r princess was not used to int erpret this result as normal/abnormal . [facility]LtqfjnxVGVPPICTEF2673-71-09 09:42:00 Test Item Value Reference Range Interpretation Comments WBC (test code = WBC) 6.9 3.7-10.4 [facility]GforvwwKQBFESYIYV3041-09-38 09:42:00 Test Item Value Reference Range Interpretation Comments RBC (test code = RBC) 3.26 4.70-6.10 [facility]PekxoacOVUDLUTHMP0970-12-29 09:42:00 Test Item Value Reference Range Interpretation Comments Hgb (test code = Hgb) 10.4 14.0-18.0 [facility]HmpqdamUBJEFJSBCC2506-35-91 09:42:00 Test Item Value Reference Range Interpretation Comments Hct (test code = Hct) 30.6 42.0-54.0 [facility]MrgwcoiSITAGVCNQE7639-05-19 09:42:00 Test Item Value Reference Range Interpretation Comments MCV (test code = MCV) 93.9 80.0-94.0 [place] 437761-01-24 09:42:00 Test Item Value Reference Range Interpretation Comments MCH (test code = MCH) 31.8 pg 27.0-31.0 [facility]DrudypuCAULHARWON5606-49-28 09:42:00 Test Item Value Reference Range Interpretation Comments MCHC (test code = MCHC) 33.9 32.0-36.0 [facility]QiolozcFVPDOIAGTV4075-56-71 09:42:00 Test Item Value Reference Range Interpretation Comments RDW (test code = RDW) 15.1 11.5-14.5 [facility]WaxorrgOHVADKZGDU8810-49-38 09:42:00 Test Item Value Reference Range Interpretation Comments Platelet (test code = Platelet) 225 133-450 [place] 437761-01-24 09:42:00 Test Item Value Reference Range Interpretation Comments MPV (test code = MPV) 8.0 7.4-10.4 [place] 378941-01-24 09:42:00 Test Item Value Reference Range Interpretation Comments Glucose Lvl (test code = Glucose Lvl) 101 70-99 [place] 378941-01-24 09:42:00 Test Item Value Reference Range Interpretation Comments BUN (test code = BUN) 19 7-22 [place] 378941-01-24 09:42:00 Test Item Value Reference Range Interpretation Comments Creatinine Lvl (test code = Creatinine 0.87 0.50-1.40 Lvl) [place] 378941-01-24 09:42:00 Test Item Value Reference Range Interpretation Comments Sodium Lvl (test code = Sodium Lvl) 138 135-145 [place] 378941-01-24 09:42:00 Test Item Value Reference Range Interpretation Comments Potassium Lvl (test code = Potassium 3.8 3.5-5.1 Lvl) [place] 378941-01-24 09:42:00 Test Item Value Reference Range Interpretation Comments Chloride Lvl (test code = Chloride Lvl) 105 95-109 [place] 378941-01-24 09:42:00 Test Item Value Reference Range Interpretation Comments CO2 (test code = CO2) 25 24-32 [place] 378941-01-24 09:42:00 Test Item Value Reference Range Interpretation Comments Calcium Lvl (test code = Calcium Lvl) 8.1 8.5-10.5 [place] 378941-01-24 09:42:00 Test Item Value Reference Range Interpretation Comments AGAP (test code = AGAP) 11.8 10.0-20.0 [place] 378941-01-24 09:42:00 Test Item Value Reference Range Interpretation Comments eGFR (test code = eGFR) 84 [place] 437761-01-24 09:42:00 Test Item Value Reference Range Interpretation Comments Segs (test code = Segs) 75.2 45.0-75.0 [place] 437761-01-24 09:42:00 Test Item Value Reference Range Interpretation Comments Lymphocytes (test code = Lymphocytes) 13.3 20.0-40.0 [facility]PusgcumCLXIHVFVLH0158-42-63 09:42:00 Test Item Value Reference Range Interpretation Comments Monocytes (test code = Monocytes) 9.7 2.0-12.0 [facility]NithboaSEJGFFOKXI3260-55-54 09:42:00 Test Item Value Reference Range Interpretation Comments Eosinophils (test code = 1.3 See_Comment [A utomated message] The Eosinophils) system which ge nerated this result tra nsmitted reference range : <=4.0. The reference r princess was not used to int erpret this result as normal/abnormal . [facility]KspptayGVABIRLSNY2659-91-91 09:42:00 Test Item Value Reference Range Interpretation Comments Basophils (test code = 0.5 See_Comment [Aut omated message] The Basophils) system which ge nerated this result tra nsmitted reference range : <=1.0. The reference r princess was not used to int erpret this result as normal/abnormal . [facility]CvvjpdkTAPVCNGYRK2692-33-40 09:42:00 Test Item Value Reference Range Interpretation Comments Neutrophils # (test code = Neutrophils 5.2 1.5-8.1 #) [facility]KjkgaopHUAZBKTWLB8815-25-32 09:42:00 Test Item Value Reference Range Interpretation Comments Lymphocytes # (test code = Lymphocytes 0.9 1.0-5.5 #) [facility]HealthHdtulgtGVOEVLKCLP3226-57-92 09:42:00 Test Item Value Reference Range Interpretation Comments Monocytes # (test code 0.7 See_Comment [Aut omated message] The = Monocytes #) system which generated this result tra nsmitted reference range : <=0.8. The reference r princess was not used to int erpret this result as normal/abnormal . [facility]HealthOmaxchzISQKPYCRHU9206-42-67 09:42:00 Test Item Value Reference Range Interpretation Comments Eosinophils # (test code 0.1 See_Comment [A utomated message] The = Eosinophils #) system whic h generated this result tra nsmitted reference range : <=0.5. The reference r princess was not used to int erpret this result as normal/abnormal . [facility]HealthRekmlifUVJBYYDREY8977-30-56 09:42:00 Test Item Value Reference Range Interpretation Comments WBC (test code = WBC) 6.9 3.7-10.4 [place] 437761-01-24 09:42:00 Test Item Value Reference Range Interpretation Comments RBC (test code = RBC) 3.26 4.70-6.10 [facility]OrsnlboHSGGAJRCGN7903-59-74 09:42:00 Test Item Value Reference Range Interpretation Comments Hgb (test code = Hgb) 10.4 14.0-18.0 [place] 437761-01-24 09:42:00 Test Item Value Reference Range Interpretation Comments Hct (test code = Hct) 30.6 42.0-54.0 [place] 437761-01-24 09:42:00 Test Item Value Reference Range Interpretation Comments MCV (test code = MCV) 93.9 80.0-94.0 [place] 437761-01-24 09:42:00 Test Item Value Reference Range Interpretation Comments MCH (test code = MCH) 31.8 pg 27.0-31.0 [place] 437761-01-24 09:42:00 Test Item Value Reference Range Interpretation Comments MCHC (test code = MCHC) 33.9 32.0-36.0 [facility]OuefdoaHCFFPKHTMH8622-81-24 09:42:00 Test Item Value Reference Range Interpretation Comments RDW (test code = RDW) 15.1 11.5-14.5 [facility]SkshzpyMUHQEVNQYW0804-11-55 09:42:00 Test Item Value Reference Range Interpretation Comments Platelet (test code = Platelet) 225 133-450 [facility]UswmfjfVOMZYCVIAR4531-10-89 09:42:00 Test Item Value Reference Range Interpretation Comments MPV (test code = MPV) 8.0 7.4-10.4 [facility]2021-01-24 09:42:00 Test Item Value Reference Range Interpretation Comments Glucose Lvl (test code = Glucose Lvl) 101 70-99 [facility]2021-01-24 09:42:00 Test Item Value Reference Range Interpretation Comments BUN (test code = BUN) 19 7-22 [facility]2021-01-24 09:42:00 Test Item Value Reference Range Interpretation Comments Creatinine Lvl (test code = Creatinine 0.87 0.50-1.40 Lvl) [place] 378941-01-24 09:42:00 Test Item Value Reference Range Interpretation Comments Sodium Lvl (test code = Sodium Lvl) 138 135-145 [place] 378941-01-24 09:42:00 Test Item Value Reference Range Interpretation Comments Potassium Lvl (test code = Potassium 3.8 3.5-5.1 Lvl) [place] 378941-01-24 09:42:00 Test Item Value Reference Range Interpretation Comments Chloride Lvl (test code = Chloride Lvl) 105 95-109 [place] 378941-01-24 09:42:00 Test Item Value Reference Range Interpretation Comments CO2 (test code = CO2) 25 24-32 [place] 378941-01-24 09:42:00 Test Item Value Reference Range Interpretation Comments Calcium Lvl (test code = Calcium Lvl) 8.1 8.5-10.5 [place] 378941-01-24 09:42:00 Test Item Value Reference Range Interpretation Comments AGAP (test code = AGAP) 11.8 10.0-20.0 [place] 378941-01-24 09:42:00 Test Item Value Reference Range Interpretation Comments eGFR (test code = eGFR) 84 [place] 437761-01-24 09:42:00 Test Item Value Reference Range Interpretation Comments Segs (test code = Segs) 75.2 45.0-75.0 [place] 437761-01-24 09:42:00 Test Item Value Reference Range Interpretation Comments Lymphocytes (test code = Lymphocytes) 13.3 20.0-40.0 [place] 437761-01-24 09:42:00 Test Item Value Reference Range Interpretation Comments Monocytes (test code = Monocytes) 9.7 2.0-12.0 [place] 355[address]-01-24 09:42:00 Test Item Value Reference Range Interpretation Comments Eosinophils (test code = 1.3 See_Comment [A utomated message] The Eosinophils) system which ge nerated this result tra nsmitted reference range : <=4.0. The reference r princess was not used to int erpret this result as normal/abnormal . [place] 437761-01-24 09:42:00 Test Item Value Reference Range Interpretation Comments Basophils (test code = 0.5 See_Comment [Aut omated message] The Basophils) system which ge nerated this result tra nsmitted reference range : <=1.0. The reference r princess was not used to int erpret this result as normal/abnormal . [facility]:00 Test Item Value Reference Range Interpretation Comments Neutrophils # (test code = Neutrophils 5.2 1.5-8.1 #) [facility]69[facility]-09 09:42:00 Test Item Value Reference Range Interpretation Comments Lymphocytes # (test code = Lymphocytes 0.9 1.0-5.5 #) [place] 437761-01-24 09:42:00 Test Item Value Reference Range Interpretation Comments Monocytes # (test code 0.7 See_Comment [Aut omated message] The = Monocytes #) system which generated this result tra nsmitted reference range : <=0.8. The reference r princess was not used to int erpret this result as normal/abnormal . [facility]qlCBX[facility]PS[facility]IX[facility] 09:42:00 Test Item Value Reference Range Interpretation Comments Eosinophils # (test code 0.1 See_Comment [A utomated message] The = Eosinophils #) system whic h generated this result tra nsmitted reference range : <=0.5. The reference r princess was not used to int erpret this result as normal/abnormal . [facility]ujvkeOIYOERVXOV3961-78-44 09:42:00 Test Item Value Reference Range Interpretation Comments WBC (test code = WBC) 6.9 3.7-10.4 [place] 437761-01-24 09:42:00 Test Item Value Reference Range Interpretation Comments RBC (test code = RBC) 3.26 4.70-6.10 [place] 437761-01-24 09:42:00 Test Item Value Reference Range Interpretation Comments Hgb (test code = Hgb) 10.4 14.0-18.0 [place] 437761-01-24 09:42:00 Test Item Value Reference Range Interpretation Comments Hct (test code = Hct) 30.6 42.0-54.0 [place] 437761-01-24 09:42:00 Test Item Value Reference Range Interpretation Comments MCV (test code = MCV) 93.9 80.0-94.0 [place] [address]-01-24 09:42:00 Test Item Value Reference Range Interpretation Comments MCH (test code = MCH) 31.8 pg 27.0-31.0 [place] 437761-01-24 09:42:00 Test Item Value Reference Range Interpretation Comments MCHC (test code = MCHC) 33.9 32.0-36.0 [place] 437761-01-24 09:42:00 Test Item Value Reference Range Interpretation Comments RDW (test code = RDW) 15.1 11.5-14.5 [place] 437761-01-24 09:42:00 Test Item Value Reference Range Interpretation Comments Platelet (test code = Platelet) 225 133-450 [place] 437761-01-24 09:42:00 Test Item Value Reference Range Interpretation Comments MPV (test code = MPV) 8.0 7.4-10.4 [place] 378941-01-23 09:33:00 Test Item Value Reference Range Interpretation Comments Glucose Lvl (test code = Glucose Lvl) 91 70-99 [place] 378941-01-23 09:33:00 Test Item Value Reference Range Interpretation Comments BUN (test code = BUN) 21 7-22 [place] 378941-01-23 09:33:00 Test Item Value Reference Range Interpretation Comments Creatinine Lvl (test code = Creatinine 1.00 0.50-1.40 Lvl) [place] 378941-01-23 09:33:00 Test Item Value Reference Range Interpretation Comments Sodium Lvl (test code = Sodium Lvl) 139 135-145 [place] 378941-01-23 09:33:00 Test Item Value Reference Range Interpretation Comments Potassium Lvl (test code = Potassium 3.8 3.5-5.1 Lvl) [place] 378941-01-23 09:33:00 Test Item Value Reference Range Interpretation Comments Chloride Lvl (test code = Chloride Lvl) 106 95-109 [place] 378941-01-23 09:33:00 Test Item Value Reference Range Interpretation Comments CO2 (test code = CO2) 25 24-32 [place] 378941-01-23 09:33:00 Test Item Value Reference Range Interpretation Comments Calcium Lvl (test code = Calcium Lvl) 7.9 8.5-10.5 [place] 378941-01-23 09:33:00 Test Item Value Reference Range Interpretation Comments Total Protein (test code = Total 5.5 6.4-8.4 Protein) [place] 378941-01-23 09:33:00 Test Item Value Reference Range Interpretation Comments Albumin Lvl (test code = Albumin Lvl) 2.1 3.5-5.0 [place] 378941-01-23 09:33:00 Test Item Value Reference Range Interpretation Comments ALT (test code = ALT) 56 See_Comment [Auto mated message] The system which ge nerated this result transmit tammi reference range : <=65. The reference range was not used to interpr et this result as josé miguel l/abnormal. [place] 378941-01-23 09:33:00 Test Item Value Reference Range Interpretation Comments AST (test code = AST) 34 See_Comment [Auto mated message] The system which ge nerated this result transmit tammi reference range : <=37. The reference range was not used to interpr et this result as josé miguel l/abnormal. [facility] [id number] 09:33:00 Test Item Value Reference Range Interpretation Comments Alk Phos (test code = Alk Phos) 74 39-136 [facility] [id number] 09:33:00 Test Item Value Reference Range Interpretation Comments Bili Total (test code = Bili Total) 1.6 0.2-1.3 [facility] [id number] 09:33:00 Test Item Value Reference Range Interpretation Comments AGAP (test code = AGAP) 11.8 10.0-20.0 [facility] [id number] 09:33:00 Test Item Value Reference Range Interpretation Comments B/C Ratio (test code = B/C Ratio) 21 1 6-25 [facility] [id number] 09:33:00 Test Item Value Reference Range Interpretation Comments Globulin (test code = Globulin) 3.4 2.7-4.2 [facility] [id number] 09:33:00 Test Item Value Reference Range Interpretation Comments A/G Ratio (test code = A/G Ratio) 0.6 1 0.7-1.6 [facility]2021-01-23 09:33:00 Test Item Value Reference Range Interpretation Comments eGFR (test code = eGFR) 73 [place] 437761-01-23 09:33:00 Test Item Value Reference Range Interpretation Comments WBC (test code = WBC) 7.2 3.7-10.4 [place] 437761-01-23 09:33:00 Test Item Value Reference Range Interpretation Comments RBC (test code = RBC) 3.17 4.70-6.10 [place] 437761-01-23 09:33:00 Test Item Value Reference Range Interpretation Comments Hgb (test code = Hgb) 10.4 14.0-18.0 [place] 437761-01-23 09:33:00 Test Item Value Reference Range Interpretation Comments Hct (test code = Hct) 30.1 42.0-54.0 [place] 437761-01-23 09:33:00 Test Item Value Reference Range Interpretation Comments MCV (test code = MCV) 95.1 80.0-94.0 [place] 437761-01-23 09:33:00 Test Item Value Reference Range Interpretation Comments MCH (test code = MCH) 32.7 pg 27.0-31.0 [place] 437761-01-23 09:33:00 Test Item Value Reference Range Interpretation Comments MCHC (test code = MCHC) 34.4 32.0-36.0 [place] 437761-01-23 09:33:00 Test Item Value Reference Range Interpretation Comments RDW (test code = RDW) 15.1 11.5-14.5 [place] 437761-01-23 09:33:00 Test Item Value Reference Range Interpretation Comments Platelet (test code = Platelet) 197 133-450 [place] 437761-01-23 09:33:00 Test Item Value Reference Range Interpretation Comments MPV (test code = MPV) 8.0 7.4-10.4 [place] 437761-01-23 09:33:00 Test Item Value Reference Range Interpretation Comments Segs (test code = Segs) 77.0 45.0-75.0 [place] 437761-01-23 09:33:00 Test Item Value Reference Range Interpretation Comments Lymphocytes (test code = Lymphocytes) 12.9 20.0-40.0 [place] 437761-01-23 09:33:00 Test Item Value Reference Range Interpretation Comments Monocytes (test code = Monocytes) 8.9 2.0-12.0 [place] 437761-01-23 09:33:00 Test Item Value Reference Range Interpretation Comments Eosinophils (test code = 1.1 See_Comment [A utomated message] The Eosinophils) system which ge nerated this result tra nsmitted reference range : <=4.0. The reference r princess was not used to int erpret this result as normal/abnormal . [place] 437761-01-23 09:33:00 Test Item Value Reference Range Interpretation Comments Basophils (test code = 0.1 See_Comment [Aut omated message] The Basophils) system which ge nerated this result tra nsmitted reference range : <=1.0. The reference r princess was not used to int erpret this result as normal/abnormal . [place] 437761-01-23 09:33:00 Test Item Value Reference Range Interpretation Comments Neutrophils # (test code = Neutrophils 5.6 1.5-8.1 #) [place] 437761-01-23 09:33:00 Test Item Value Reference Range Interpretation Comments Lymphocytes # (test code = Lymphocytes 0.9 1.0-5.5 #) [place] 437761-01-23 09:33:00 Test Item Value Reference Range Interpretation Comments Monocytes # (test code 0.6 See_Comment [Aut omated message] The = Monocytes #) system which generated this result tra nsmitted reference range : <=0.8. The reference r princess was not used to int erpret this result as normal/abnormal . [place] 437761-01-23 09:33:00 Test Item Value Reference Range Interpretation Comments Eosinophils # (test code 0.1 See_Comment [A utomated message] The = Eosinophils #) system whic h generated this result tra nsmitted reference range : <=0.5. The reference r princess was not used to int erpret this result as normal/abnormal . [facility]2021-01-23 09:33:00 Test Item Value Reference Range Interpretation Comments Glucose Lvl (test code = Glucose Lvl) 91 70-99 [place] 378941-01-23 09:33:00 Test Item Value Reference Range Interpretation Comments BUN (test code = BUN) 21 7-22 [place] 378941-01-23 09:33:00 Test Item Value Reference Range Interpretation Comments Creatinine Lvl (test code = Creatinine 1.00 0.50-1.40 Lvl) [place] 378941-01-23 09:33:00 Test Item Value Reference Range Interpretation Comments Sodium Lvl (test code = Sodium Lvl) 139 135-145 [place] 378941-01-23 09:33:00 Test Item Value Reference Range Interpretation Comments Potassium Lvl (test code = Potassium 3.8 3.5-5.1 Lvl) [place] 378941-01-23 09:33:00 Test Item Value Reference Range Interpretation Comments Chloride Lvl (test code = Chloride Lvl) 106 95-109 [place] 378941-01-23 09:33:00 Test Item Value Reference Range Interpretation Comments CO2 (test code = CO2) 25 24-32 [place] 378941-01-23 09:33:00 Test Item Value Reference Range Interpretation Comments Calcium Lvl (test code = Calcium Lvl) 7.9 8.5-10.5 [place] 378941-01-23 09:33:00 Test Item Value Reference Range Interpretation Comments Total Protein (test code = Total 5.5 6.4-8.4 Protein) [place] 378941-01-23 09:33:00 Test Item Value Reference Range Interpretation Comments Albumin Lvl (test code = Albumin Lvl) 2.1 3.5-5.0 [place] 378941-01-23 09:33:00 Test Item Value Reference Range Interpretation Comments ALT (test code = ALT) 56 See_Comment [Auto mated message] The system which ge nerated this result transmit tammi reference range : <=65. The reference range was not used to interpr et this result as josé miguel l/abnormal. [place] 378941-01-23 09:33:00 Test Item Value Reference Range Interpretation Comments AST (test code = AST) 34 See_Comment [Auto mated message] The system which ge nerated this result transmit tammi reference range : <=37. The reference range was not used to interpr et this result as josé miguel l/abnormal. [place] 378941-01-23 09:33:00 Test Item Value Reference Range Interpretation Comments Alk Phos (test code = Alk Phos) 74 39-136 [place] 378941-01-23 09:33:00 Test Item Value Reference Range Interpretation Comments Bili Total (test code = Bili Total) 1.6 0.2-1.3 [place] 378941-01-23 09:33:00 Test Item Value Reference Range Interpretation Comments AGAP (test code = AGAP) 11.8 10.0-20.0 [place] 378941-01-23 09:33:00 Test Item Value Reference Range Interpretation Comments B/C Ratio (test code = B/C Ratio) 21 1 6-25 [place] [address]-01-23 09:33:00 Test Item Value Reference Range Interpretation Comments Globulin (test code = Globulin) 3.4 2.7-4.2 [place] 378941-01-23 09:33:00 Test Item Value Reference Range Interpretation Comments A/G Ratio (test code = A/G Ratio) 0.6 1 0.7-1.6 [place] 378941-01-23 09:33:00 Test Item Value Reference Range Interpretation Comments eGFR (test code = eGFR) 73 [place] 437761-01-23 09:33:00 Test Item Value Reference Range Interpretation Comments WBC (test code = WBC) 7.2 3.7-10.4 [place] 437761-01-23 09:33:00 Test Item Value Reference Range Interpretation Comments RBC (test code = RBC) 3.17 4.70-6.10 [place] [address]-01-23 09:33:00 Test Item Value Reference Range Interpretation Comments Hgb (test code = Hgb) 10.4 14.0-18.0 [place] 437761-01-23 09:33:00 Test Item Value Reference Range Interpretation Comments Hct (test code = Hct) 30.1 42.0-54.0 [place] 437761-01-23 09:33:00 Test Item Value Reference Range Interpretation Comments MCV (test code = MCV) 95.1 80.0-94.0 [place] 437761-01-23 09:33:00 Test Item Value Reference Range Interpretation Comments MCH (test code = MCH) 32.7 pg 27.0-31.0 [facility]hsikiBAQVTZEWTG4541-52-90 09:33:00 Test Item Value Reference Range Interpretation Comments MCHC (test code = MCHC) 34.4 32.0-36.0 [facility]DjaypmyRTFYQCJADZ6515-44-66 09:33:00 Test Item Value Reference Range Interpretation Comments RDW (test code = RDW) 15.1 11.5-14.5 [place] 437761-01-23 09:33:00 Test Item Value Reference Range Interpretation Comments Platelet (test code = Platelet) 197 133-450 [facility]AozctcpTLTAHMWVGC8430-18-83 09:33:00 Test Item Value Reference Range Interpretation Comments MPV (test code = MPV) 8.0 7.4-10.4 [facility]FbwmynbEYIHHILLZI2093-67-37 09:33:00 Test Item Value Reference Range Interpretation Comments Segs (test code = Segs) 77.0 45.0-75.0 [facility]UocbxdiCURXBZYKZY2304-01-39 09:33:00 Test Item Value Reference Range Interpretation Comments Lymphocytes (test code = Lymphocytes) 12.9 20.0-40.0 [facility]LksbcikLNDOLXACNX7709-38-84 09:33:00 Test Item Value Reference Range Interpretation Comments Monocytes (test code = Monocytes) 8.9 2.0-12.0 [facility]WqxtqdhPTNHSHNALS8294-20-82 09:33:00 Test Item Value Reference Range Interpretation Comments Eosinophils (test code = 1.1 See_Comment [A utomated message] The Eosinophils) system which ge nerated this result tra nsmitted reference range : <=4.0. The reference r princess was not used to int erpret this result as normal/abnormal . [facility]LrgzpswNFVDPHCTRD7151-19-61 09:33:00 Test Item Value Reference Range Interpretation Comments Basophils (test code = 0.1 See_Comment [Aut omated message] The Basophils) system which ge nerated this result tra nsmitted reference range : <=1.0. The reference r princess was not used to int erpret this result as normal/abnormal . [place] 437761-01-23 09:33:00 Test Item Value Reference Range Interpretation Comments Neutrophils # (test code = Neutrophils 5.6 1.5-8.1 #) [place] 437761-01-23 09:33:00 Test Item Value Reference Range Interpretation Comments Lymphocytes # (test code = Lymphocytes 0.9 1.0-5.5 #) [place] 437761-01-23 09:33:00 Test Item Value Reference Range Interpretation Comments Monocytes # (test code 0.6 See_Comment [Aut omated message] The = Monocytes #) system which generated this result tra nsmitted reference range : <=0.8. The reference r princess was not used to int erpret this result as normal/abnormal . [place] [address]-01-23 09:33:00 Test Item Value Reference Range Interpretation Comments Eosinophils # (test code 0.1 See_Comment [A utomated message] The = Eosinophils #) system whic h generated this result tra nsmitted reference range : <=0.5. The reference r princess was not used to int erpret this result as normal/abnormal . [place] 378941-01-23 09:33:00 Test Item Value Reference Range Interpretation Comments Glucose Lvl (test code = Glucose Lvl) 91 70-99 [place] 378941-01-23 09:33:00 Test Item Value Reference Range Interpretation Comments BUN (test code = BUN) 21 7-22 [place] 378941-01-23 09:33:00 Test Item Value Reference Range Interpretation Comments Creatinine Lvl (test code = Creatinine 1.00 0.50-1.40 Lvl) [place] 378941-01-23 09:33:00 Test Item Value Reference Range Interpretation Comments Sodium Lvl (test code = Sodium Lvl) 139 135-145 [place] 378941-01-23 09:33:00 Test Item Value Reference Range Interpretation Comments Potassium Lvl (test code = Potassium 3.8 3.5-5.1 Lvl) [place] 378941-01-23 09:33:00 Test Item Value Reference Range Interpretation Comments Chloride Lvl (test code = Chloride Lvl) 106 95-109 [place] 378941-01-23 09:33:00 Test Item Value Reference Range Interpretation Comments CO2 (test code = CO2) 25 24-32 [facility] [id number] 09:33:00 Test Item Value Reference Range Interpretation Comments Calcium Lvl (test code = Calcium Lvl) 7.9 8.5-10.5 [facility] [id number] 09:33:00 Test Item Value Reference Range Interpretation Comments Total Protein (test code = Total 5.5 6.4-8.4 Protein) [facility] [id number] 09:33:00 Test Item Value Reference Range Interpretation Comments Albumin Lvl (test code = Albumin Lvl) 2.1 3.5-5.0 [facility] [id number] 09:33:00 Test Item Value Reference Range Interpretation Comments ALT (test code = ALT) 56 See_Comment [Auto mated message] The system which ge nerated this result transmit tammi reference range : <=65. The reference range was not used to interpr et this result as josé miguel l/abnormal. [facility] [id number] 09:33:00 Test Item Value Reference Range Interpretation Comments AST (test code = AST) 34 See_Comment [Auto mated message] The system which ge nerated this result transmit tammi reference range : <=37. The reference range was not used to interpr et this result as josé miguel l/abnormal. [facility] [id number] 09:33:00 Test Item Value Reference Range Interpretation Comments Alk Phos (test code = Alk Phos) 74 39-136 [facility] [id number] 09:33:00 Test Item Value Reference Range Interpretation Comments Bili Total (test code = Bili Total) 1.6 0.2-1.3 [facility] [id number] 09:33:00 Test Item Value Reference Range Interpretation Comments AGAP (test code = AGAP) 11.8 10.0-20.0 [facility] [id number] 09:33:00 Test Item Value Reference Range Interpretation Comments B/C Ratio (test code = B/C Ratio) 21 1 6-25 [facility] [id number] 09:33:00 Test Item Value Reference Range Interpretation Comments Globulin (test code = Globulin) 3.4 2.7-4.2 [place] 378941-01-23 09:33:00 Test Item Value Reference Range Interpretation Comments A/G Ratio (test code = A/G Ratio) 0.6 1 0.7-1.6 [place] 378941-01-23 09:33:00 Test Item Value Reference Range Interpretation Comments eGFR (test code = eGFR) 73 [place] 437761-01-23 09:33:00 Test Item Value Reference Range Interpretation Comments WBC (test code = WBC) 7.2 3.7-10.4 [place] 437761-01-23 09:33:00 Test Item Value Reference Range Interpretation Comments RBC (test code = RBC) 3.17 4.70-6.10 [place] 437761-01-23 09:33:00 Test Item Value Reference Range Interpretation Comments Hgb (test code = Hgb) 10.4 14.0-18.0 [place] 437761-01-23 09:33:00 Test Item Value Reference Range Interpretation Comments Hct (test code = Hct) 30.1 42.0-54.0 [place] 437761-01-23 09:33:00 Test Item Value Reference Range Interpretation Comments MCV (test code = MCV) 95.1 80.0-94.0 [place] 437761-01-23 09:33:00 Test Item Value Reference Range Interpretation Comments MCH (test code = MCH) 32.7 pg 27.0-31.0 [place] 437761-01-23 09:33:00 Test Item Value Reference Range Interpretation Comments MCHC (test code = MCHC) 34.4 32.0-36.0 [place] 437761-01-23 09:33:00 Test Item Value Reference Range Interpretation Comments RDW (test code = RDW) 15.1 11.5-14.5 [place] 437761-01-23 09:33:00 Test Item Value Reference Range Interpretation Comments Platelet (test code = Platelet) 197 133-450 [place] 437761-01-23 09:33:00 Test Item Value Reference Range Interpretation Comments MPV (test code = MPV) 8.0 7.4-10.4 [place] 437761-01-23 09:33:00 Test Item Value Reference Range Interpretation Comments Segs (test code = Segs) 77.0 45.0-75.0 [place] 437761-01-23 09:33:00 Test Item Value Reference Range Interpretation Comments Lymphocytes (test code = Lymphocytes) 12.9 20.0-40.0 [place] 437761-01-23 09:33:00 Test Item Value Reference Range Interpretation Comments Monocytes (test code = Monocytes) 8.9 2.0-12.0 [place] 437761-01-23 09:33:00 Test Item Value Reference Range Interpretation Comments Eosinophils (test code = 1.1 See_Comment [A utomated message] The Eosinophils) system which ge nerated this result tra nsmitted reference range : <=4.0. The reference r princess was not used to int erpret this result as normal/abnormal . [place] [address]-01-23 09:33:00 Test Item Value Reference Range Interpretation Comments Basophils (test code = 0.1 See_Comment [Aut omated message] The Basophils) system which ge nerated this result tra nsmitted reference range : <=1.0. The reference r princess was not used to int erpret this result as normal/abnormal . [place] 437761-01-23 09:33:00 Test Item Value Reference Range Interpretation Comments Neutrophils # (test code = Neutrophils 5.6 1.5-8.1 #) [place] 437761-01-23 09:33:00 Test Item Value Reference Range Interpretation Comments Lymphocytes # (test code = Lymphocytes 0.9 1.0-5.5 #) [place] 437761-01-23 09:33:00 Test Item Value Reference Range Interpretation Comments Monocytes # (test code 0.6 See_Comment [Aut omated message] The = Monocytes #) system which generated this result tra nsmitted reference range : <=0.8. The reference r princess was not used to int erpret this result as normal/abnormal . [place] 437761-01-23 09:33:00 Test Item Value Reference Range Interpretation Comments Eosinophils # (test code 0.1 See_Comment [A utomated message] The = Eosinophils #) system whic h generated this result tra nsmitted reference range : <=0.5. The reference r princess was not used to int erpret this result as normal/abnormal . [place] 437761-01-22 16:16:00 Test Item Value Reference Range Interpretation Comments PTT (test code = PTT) 102.9 s 22.9-35.8 [place] 437761-01-22 16:16:00 Test Item Value Reference Range Interpretation Comments PTT (test code = PTT) 102.9 s 22.9-35.8 [place] 437761-01-22 16:16:00 Test Item Value Reference Range Interpretation Comments PTT (test code = PTT) 102.9 s 22.9-35.8 [place] 378941-01-22 09:04:00 Test Item Value Reference Range Interpretation Comments Alk Phos (test code = Alk Phos) 81 39-136 [facility]2021-01-22 09:04:00 Test Item Value Reference Range Interpretation Comments Bili Total (test code = Bili Total) 1.7 0.2-1.3 [facility]2021-01-22 09:04:00 Test Item Value Reference Range Interpretation Comments eGFR (test code = eGFR) 63 [facility]YLN7711-94-91 09:04:00 Test Item Value Reference Range Interpretation Comments WBC (test code = WBC) 9.2 3.7-10.4 [place] 437761-01-22 09:04:00 Test Item Value Reference Range Interpretation Comments RBC (test code = RBC) 3.29 4.70-6.10 [place] 437761-01-22 09:04:00 Test Item Value Reference Range Interpretation Comments Hgb (test code = Hgb) 10.6 14.0-18.0 [place] 437761-01-22 09:04:00 Test Item Value Reference Range Interpretation Comments Hct (test code = Hct) 31.3 42.0-54.0 [place] 437761-01-22 09:04:00 Test Item Value Reference Range Interpretation Comments MCV (test code = MCV) 95.1 80.0-94.0 [place] 437761-01-22 09:04:00 Test Item Value Reference Range Interpretation Comments MCH (test code = MCH) 32.2 pg 27.0-31.0 [place] 437761-01-22 09:04:00 Test Item Value Reference Range Interpretation Comments MCHC (test code = MCHC) 33.8 32.0-36.0 [place] 437761-01-22 09:04:00 Test Item Value Reference Range Interpretation Comments RDW (test code = RDW) 14.8 11.5-14.5 [place] [id number] 09:04:00 Test Item Value Reference Range Interpretation Comments Platelet (test code = Platelet) 200 133-450 [place] 437761-01-22 09:04:00 Test Item Value Reference Range Interpretation Comments MPV (test code = MPV) 8.3 7.4-10.4 [place] 437761-01-22 09:04:00 Test Item Value Reference Range Interpretation Comments Segs (test code = Segs) 77.6 45.0-75.0 [place] 437761-01-22 09:04:00 Test Item Value Reference Range Interpretation Comments Lymphocytes (test code = Lymphocytes) 13.3 20.0-40.0 [place] 437761-01-22 09:04:00 Test Item Value Reference Range Interpretation Comments Monocytes (test code = Monocytes) 8.5 2.0-12.0 [place] 437761-01-22 09:04:00 Test Item Value Reference Range Interpretation Comments Eosinophils (test code = 0.4 See_Comment [A utomated message] The Eosinophils) system which ge nerated this result tra nsmitted reference range : <=4.0. The reference r princess was not used to int erpret this result as normal/abnormal . [place] 437761-01-22 09:04:00 Test Item Value Reference Range Interpretation Comments Basophils (test code = 0.2 See_Comment [Aut omated message] The Basophils) system which ge nerated this result tra nsmitted reference range : <=1.0. The reference r princess was not used to int erpret this result as normal/abnormal . [place] 437761-01-22 09:04:00 Test Item Value Reference Range Interpretation Comments Neutrophils # (test code = Neutrophils 7.1 1.5-8.1 #) [place] 437761-01-22 09:04:00 Test Item Value Reference Range Interpretation Comments Lymphocytes # (test code = Lymphocytes 1.2 1.0-5.5 #) [place] 437761-01-22 09:04:00 Test Item Value Reference Range Interpretation Comments Monocytes # (test code 0.8 See_Comment [Aut omated message] The = Monocytes #) system which generated this result tra nsmitted reference range : <=0.8. The reference r princess was not used to int erpret this result as normal/abnormal . [place] 437761-01-22 09:04:00 Test Item Value Reference Range Interpretation Comments PTT (test code = PTT) 65.3 s 22.9-35.8 [place] 378941-01-22 09:04:00 Test Item Value Reference Range Interpretation Comments Glucose Lvl (test code = Glucose Lvl) 108 70-99 [place] 378941-01-22 09:04:00 Test Item Value Reference Range Interpretation Comments BUN (test code = BUN) 25 7-22 [place] 378941-01-22 09:04:00 Test Item Value Reference Range Interpretation Comments Creatinine Lvl (test code = Creatinine 1.13 0.50-1.40 Lvl) [place] 378941-01-22 09:04:00 Test Item Value Reference Range Interpretation Comments Sodium Lvl (test code = Sodium Lvl) 138 135-145 [place] 378941-01-22 09:04:00 Test Item Value Reference Range Interpretation Comments Potassium Lvl (test code = Potassium 3.8 3.5-5.1 Lvl) [place] 378941-01-22 09:04:00 Test Item Value Reference Range Interpretation Comments Chloride Lvl (test code = Chloride Lvl) 105 95-109 [place] 378941-01-22 09:04:00 Test Item Value Reference Range Interpretation Comments CO2 (test code = CO2) 25 24-32 [place] 378941-01-22 09:04:00 Test Item Value Reference Range Interpretation Comments AGAP (test code = AGAP) 11.8 10.0-20.0 [place] 378941-01-22 09:04:00 Test Item Value Reference Range Interpretation Comments Calcium Lvl (test code = Calcium Lvl) 7.9 8.5-10.5 [place] 378941-01-22 09:04:00 Test Item Value Reference Range Interpretation Comments B/C Ratio (test code = B/C Ratio) 22 1 6-25 [place] 378941-01-22 09:04:00 Test Item Value Reference Range Interpretation Comments Total Protein (test code = Total 5.7 6.4-8.4 Protein) [place] 378941-01-22 09:04:00 Test Item Value Reference Range Interpretation Comments Albumin Lvl (test code = Albumin Lvl) 2.2 3.5-5.0 [place] 378941-01-22 09:04:00 Test Item Value Reference Range Interpretation Comments Globulin (test code = Globulin) 3.5 2.7-4.2 [place] 378941-01-22 09:04:00 Test Item Value Reference Range Interpretation Comments A/G Ratio (test code = A/G Ratio) 0.6 1 0.7-1.6 [place] 378941-01-22 09:04:00 Test Item Value Reference Range Interpretation Comments ALT (test code = ALT) 67 See_Comment [Auto mated message] The system which ge nerated this result transmit tammi reference range : <=65. The reference range was not used to interpr et this result as josé miguel l/abnormal. [place] 378941-01-22 09:04:00 Test Item Value Reference Range Interpretation Comments AST (test code = AST) 48 See_Comment [Auto mated message] The system which ge nerated this result transmit tammi reference range : <=37. The reference range was not used to interpr et this result as josé miguel l/abnormal. [place] 378941-01-22 09:04:00 Test Item Value Reference Range Interpretation Comments Alk Phos (test code = Alk Phos) 81 39-136 [place] 378941-01-22 09:04:00 Test Item Value Reference Range Interpretation Comments Bili Total (test code = Bili Total) 1.7 0.2-1.3 [place] 378941-01-22 09:04:00 Test Item Value Reference Range Interpretation Comments eGFR (test code = eGFR) 63 [facility]73 09:04:00 Test Item Value Reference Range Interpretation Comments WBC (test code = WBC) 9.2 3.7-10.4 [facility]bgylKTUXAABJUN1574-59-47 09:04:00 Test Item Value Reference Range Interpretation Comments RBC (test code = RBC) 3.29 4.70-6.10 [place] 437761-01-22 09:04:00 Test Item Value Reference Range Interpretation Comments Hgb (test code = Hgb) 10.6 14.0-18.0 [place] 437761-01-22 09:04:00 Test Item Value Reference Range Interpretation Comments Hct (test code = Hct) 31.3 42.0-54.0 [place] 437761-01-22 09:04:00 Test Item Value Reference Range Interpretation Comments MCV (test code = MCV) 95.1 80.0-94.0 [place] 437761-01-22 09:04:00 Test Item Value Reference Range Interpretation Comments MCH (test code = MCH) 32.2 pg 27.0-31.0 [place] 437761-01-22 09:04:00 Test Item Value Reference Range Interpretation Comments MCHC (test code = MCHC) 33.8 32.0-36.0 [facility]95[facility]93-61 09:04:00 Test Item Value Reference Range Interpretation Comments RDW (test code = RDW) 14.8 11.5-14.5 [facility]gowifyKMFGDDBXQG6126-23-02 09:04:00 Test Item Value Reference Range Interpretation Comments Platelet (test code = Platelet) 200 133-450 [facility]umnkueSXGRMWCUXX2091-28-46 09:04:00 Test Item Value Reference Range Interpretation Comments MPV (test code = MPV) 8.3 7.4-10.4 [place] 437761-01-22 09:04:00 Test Item Value Reference Range Interpretation Comments Segs (test code = Segs) 77.6 45.0-75.0 [place] 437761-01-22 09:04:00 Test Item Value Reference Range Interpretation Comments Lymphocytes (test code = Lymphocytes) 13.3 20.0-40.0 [place] 437761-01-22 09:04:00 Test Item Value Reference Range Interpretation Comments Monocytes (test code = Monocytes) 8.5 2.0-12.0 [place] 437761-01-22 09:04:00 Test Item Value Reference Range Interpretation Comments Eosinophils (test code = 0.4 See_Comment [A utomated message] The Eosinophils) system which ge nerated this result tra nsmitted reference range : <=4.0. The reference r princess was not used to int erpret this result as normal/abnormal . [place] 437761-01-22 09:04:00 Test Item Value Reference Range Interpretation Comments Basophils (test code = 0.2 See_Comment [Aut omated message] The Basophils) system which ge nerated this result tra nsmitted reference range : <=1.0. The reference r princess was not used to int erpret this result as normal/abnormal . [place] 437761-01-22 09:04:00 Test Item Value Reference Range Interpretation Comments Neutrophils # (test code = Neutrophils 7.1 1.5-8.1 #) [place] 437761-01-22 09:04:00 Test Item Value Reference Range Interpretation Comments Lymphocytes # (test code = Lymphocytes 1.2 1.0-5.5 #) [place] 437761-01-22 09:04:00 Test Item Value Reference Range Interpretation Comments Monocytes # (test code 0.8 See_Comment [Aut omated message] The = Monocytes #) system which generated this result tra nsmitted reference range : <=0.8. The reference r princess was not used to int erpret this result as normal/abnormal . [place] 437761-01-22 09:04:00 Test Item Value Reference Range Interpretation Comments PTT (test code = PTT) 65.3 s 22.9-35.8 [place] 378941-01-22 09:04:00 Test Item Value Reference Range Interpretation Comments Glucose Lvl (test code = Glucose Lvl) 108 70-99 [place] 378941-01-22 09:04:00 Test Item Value Reference Range Interpretation Comments BUN (test code = BUN) 25 7-22 [place] 378941-01-22 09:04:00 Test Item Value Reference Range Interpretation Comments Creatinine Lvl (test code = Creatinine 1.13 0.50-1.40 Lvl) [place] 378941-01-22 09:04:00 Test Item Value Reference Range Interpretation Comments Sodium Lvl (test code = Sodium Lvl) 138 135-145 [place] 378941-01-22 09:04:00 Test Item Value Reference Range Interpretation Comments Potassium Lvl (test code = Potassium 3.8 3.5-5.1 Lvl) [place] 378941-01-22 09:04:00 Test Item Value Reference Range Interpretation Comments Chloride Lvl (test code = Chloride Lvl) 105 95-109 [place] 378941-01-22 09:04:00 Test Item Value Reference Range Interpretation Comments CO2 (test code = CO2) 25 24-32 [place] 378941-01-22 09:04:00 Test Item Value Reference Range Interpretation Comments AGAP (test code = AGAP) 11.8 10.0-20.0 [place] 378941-01-22 09:04:00 Test Item Value Reference Range Interpretation Comments Calcium Lvl (test code = Calcium Lvl) 7.9 8.5-10.5 [place] 378941-01-22 09:04:00 Test Item Value Reference Range Interpretation Comments B/C Ratio (test code = B/C Ratio) 22 1 6-25 [place] 378941-01-22 09:04:00 Test Item Value Reference Range Interpretation Comments Total Protein (test code = Total 5.7 6.4-8.4 Protein) [place] 378941-01-22 09:04:00 Test Item Value Reference Range Interpretation Comments Albumin Lvl (test code = Albumin Lvl) 2.2 3.5-5.0 [place] 378941-01-22 09:04:00 Test Item Value Reference Range Interpretation Comments Globulin (test code = Globulin) 3.5 2.7-4.2 [place] 378941-01-22 09:04:00 Test Item Value Reference Range Interpretation Comments A/G Ratio (test code = A/G Ratio) 0.6 1 0.7-1.6 [place] 378941-01-22 09:04:00 Test Item Value Reference Range Interpretation Comments ALT (test code = ALT) 67 See_Comment [Auto mated message] The system which ge nerated this result transmit tammi reference range : <=65. The reference range was not used to interpr et this result as josé miguel l/abnormal. [facility]2021-01-22 09:04:00 Test Item Value Reference Range Interpretation Comments AST (test code = AST) 48 See_Comment [Auto mated message] The system which ge nerated this result transmit tammi reference range : <=37. The reference range was not used to interpr et this result as josé miguel l/abnormal. [place] 378941-01-22 09:04:00 Test Item Value Reference Range Interpretation Comments Alk Phos (test code = Alk Phos) 81 39-136 [place] 378941-01-22 09:04:00 Test Item Value Reference Range Interpretation Comments Bili Total (test code = Bili Total) 1.7 0.2-1.3 [place] 378941-01-22 09:04:00 Test Item Value Reference Range Interpretation Comments eGFR (test code = eGFR) 63 [facility]xqulsKPBSPXMHII3771-56-05 09:04:00 Test Item Value Reference Range Interpretation Comments WBC (test code = WBC) 9.2 3.7-10.4 [place] 437761-01-22 09:04:00 Test Item Value Reference Range Interpretation Comments RBC (test code = RBC) 3.29 4.70-6.10 [place] 437761-01-22 09:04:00 Test Item Value Reference Range Interpretation Comments Hgb (test code = Hgb) 10.6 14.0-18.0 [place] 437761-01-22 09:04:00 Test Item Value Reference Range Interpretation Comments Hct (test code = Hct) 31.3 42.0-54.0 [place] 437761-01-22 09:04:00 Test Item Value Reference Range Interpretation Comments MCV (test code = MCV) 95.1 80.0-94.0 [place] 437761-01-22 09:04:00 Test Item Value Reference Range Interpretation Comments MCH (test code = MCH) 32.2 pg 27.0-31.0 [place] 437761-01-22 09:04:00 Test Item Value Reference Range Interpretation Comments MCHC (test code = MCHC) 33.8 32.0-36.0 [place] 437761-01-22 09:04:00 Test Item Value Reference Range Interpretation Comments RDW (test code = RDW) 14.8 11.5-14.5 [place] 437761-01-22 09:04:00 Test Item Value Reference Range Interpretation Comments Platelet (test code = Platelet) 200 133-450 [place] 437761-01-22 09:04:00 Test Item Value Reference Range Interpretation Comments MPV (test code = MPV) 8.3 7.4-10.4 [place] 437761-01-22 09:04:00 Test Item Value Reference Range Interpretation Comments Segs (test code = Segs) 77.6 45.0-75.0 [place] 437761-01-22 09:04:00 Test Item Value Reference Range Interpretation Comments Lymphocytes (test code = Lymphocytes) 13.3 20.0-40.0 [place] 437761-01-22 09:04:00 Test Item Value Reference Range Interpretation Comments Monocytes (test code = Monocytes) 8.5 2.0-12.0 [place] 437761-01-22 09:04:00 Test Item Value Reference Range Interpretation Comments Eosinophils (test code = 0.4 See_Comment [A utomated message] The Eosinophils) system which ge nerated this result tra nsmitted reference range : <=4.0. The reference r princess was not used to int erpret this result as normal/abnormal . [place] 437761-01-22 09:04:00 Test Item Value Reference Range Interpretation Comments Basophils (test code = 0.2 See_Comment [Aut omated message] The Basophils) system which ge nerated this result tra nsmitted reference range : <=1.0. The reference r princess was not used to int erpret this result as normal/abnormal . [place] 437761-01-22 09:04:00 Test Item Value Reference Range Interpretation Comments Neutrophils # (test code = Neutrophils 7.1 1.5-8.1 #) [id number] 09:04:00 Test Item Value Reference Range Interpretation Comments Lymphocytes # (test code = Lymphocytes 1.2 1.0-5.5 #) [place] 437761-01-22 09:04:00 Test Item Value Reference Range Interpretation Comments Monocytes # (test code 0.8 See_Comment [Aut omated message] The = Monocytes #) system which generated this result tra nsmitted reference range : <=0.8. The reference r princess was not used to int erpret this result as normal/abnormal . [id number] 09:04:00 Test Item Value Reference Range Interpretation Comments PTT (test code = PTT) 65.3 s 22.9-35.8 [place] 378941-01-22 09:04:00 Test Item Value Reference Range Interpretation Comments Glucose Lvl (test code = Glucose Lvl) 108 70-99 [place] 378941-01-22 09:04:00 Test Item Value Reference Range Interpretation Comments BUN (test code = BUN) 25 7-22 [place] 378941-01-22 09:04:00 Test Item Value Reference Range Interpretation Comments Creatinine Lvl (test code = Creatinine 1.13 0.50-1.40 Lvl) [place] 378941-01-22 09:04:00 Test Item Value Reference Range Interpretation Comments Sodium Lvl (test code = Sodium Lvl) 138 135-145 [place] 378941-01-22 09:04:00 Test Item Value Reference Range Interpretation Comments Potassium Lvl (test code = Potassium 3.8 3.5-5.1 Lvl) [facility]2021-01-22 09:04:00 Test Item Value Reference Range Interpretation Comments Chloride Lvl (test code = Chloride Lvl) 105 95-109 [place] 378941-01-22 09:04:00 Test Item Value Reference Range Interpretation Comments CO2 (test code = CO2) 25 24-32 [place] 378941-01-22 09:04:00 Test Item Value Reference Range Interpretation Comments AGAP (test code = AGAP) 11.8 10.0-20.0 [place] 378941-01-22 09:04:00 Test Item Value Reference Range Interpretation Comments Calcium Lvl (test code = Calcium Lvl) 7.9 8.5-10.5 [place] 378941-01-22 09:04:00 Test Item Value Reference Range Interpretation Comments B/C Ratio (test code = B/C Ratio) 22 1 6-25 [place] 378941-01-22 09:04:00 Test Item Value Reference Range Interpretation Comments Total Protein (test code = Total 5.7 6.4-8.4 Protein) [place] 378941-01-22 09:04:00 Test Item Value Reference Range Interpretation Comments Albumin Lvl (test code = Albumin Lvl) 2.2 3.5-5.0 [place] 378941-01-22 09:04:00 Test Item Value Reference Range Interpretation Comments Globulin (test code = Globulin) 3.5 2.7-4.2 [place] 378941-01-22 09:04:00 Test Item Value Reference Range Interpretation Comments A/G Ratio (test code = A/G Ratio) 0.6 1 0.7-1.6 [place] [address]-01-22 09:04:00 Test Item Value Reference Range Interpretation Comments ALT (test code = ALT) 67 See_Comment [Auto mated message] The system which ge nerated this result transmit tammi reference range : <=65. The reference range was not used to interpr et this result as josé miguel l/abnormal. [place] 378941-01-22 09:04:00 Test Item Value Reference Range Interpretation Comments AST (test code = AST) 48 See_Comment [Auto mated message] The system which ge nerated this result transmit tammi reference range : <=37. The reference range was not used to interpr et this result as josé miguel l/abnormal. [place] 437761-01-22 02:13:00 Test Item Value Reference Range Interpretation Comments PTT (test code = PTT) 116.3 s 22.9-35.8 [place] 437761-01-22 02:13:00 Test Item Value Reference Range Interpretation Comments PTT (test code = PTT) 116.3 s 22.9-35.8 [place] 437761-01-22 02:13:00 Test Item Value Reference Range Interpretation Comments PTT (test code = PTT) 116.3 s 22.9-35.8 [place] 378941-01-21 11:31:00 Test Item Value Reference Range Interpretation Comments Procalcitonin Lvl (test 0.21 See_Comment [Au tomated message] code = Procalcitonin Lvl) Th e system which generated this result transmitted ref erence range: <=0.10. The reference range was not used to interpr et this result as normal/abnormal . [facility] [id number] 11:31:00 Test Item Value Reference Range Interpretation Comments B/C Ratio (test code = B/C Ratio) 15 1 6-25 [place] 378941-01-21 11:31:00 Test Item Value Reference Range Interpretation Comments Total Protein (test code = Total 6.2 6.4-8.4 Protein) [place] 378941-01-21 11:31:00 Test Item Value Reference Range Interpretation Comments Albumin Lvl (test code = Albumin Lvl) 2.6 3.5-5.0 [place] 378941-01-21 11:31:00 Test Item Value Reference Range Interpretation Comments Globulin (test code = Globulin) 3.6 2.7-4.2 [place] 378941-01-21 11:31:00 Test Item Value Reference Range Interpretation Comments A/G Ratio (test code = A/G Ratio) 0.7 1 0.7-1.6 [place] 378941-01-21 11:31:00 Test Item Value Reference Range Interpretation Comments ALT (test code = ALT) 80 See_Comment [Auto mated message] The system which ge nerated this result transmit tammi reference range : <=65. The reference range was not used to interpr et this result as josé miguel l/abnormal. [facility] [id number] 11:31:00 Test Item Value Reference Range Interpretation Comments AST (test code = AST) 131 See_Comment [Auto mated message] The system which ge nerated this result transmit tammi reference range : <=37. The reference range was not used to interpr et this result as josé miguel l/abnormal. [facility] [id number] 11:31:00 Test Item Value Reference Range Interpretation Comments Alk Phos (test code = Alk Phos) 65 39-136 [place] 378941-01-21 11:31:00 Test Item Value Reference Range Interpretation Comments Bili Total (test code = Bili Total) 3.1 0.2-1.3 [facility] [id number] 11:31:00 Test Item Value Reference Range Interpretation Comments Procalcitonin Lvl (test 0.21 See_Comment [Au tomated message] code = Procalcitonin Lvl) Th e system which generated this result transmitted ref erence range: <=0.10. The reference range was not used to interpr et this result as normal/abnormal . [facility] [id number] 11:31:00 Test Item Value Reference Range Interpretation Comments B/C Ratio (test code = B/C Ratio) 15 1 6-25 [facility] [id number] 11:31:00 Test Item Value Reference Range Interpretation Comments Total Protein (test code = Total 6.2 6.4-8.4 Protein) [facility] [id number] 11:31:00 Test Item Value Reference Range Interpretation Comments Albumin Lvl (test code = Albumin Lvl) 2.6 3.5-5.0 [facility] [id number] 11:31:00 Test Item Value Reference Range Interpretation Comments Globulin (test code = Globulin) 3.6 2.7-4.2 [facility] [id number] 11:31:00 Test Item Value Reference Range Interpretation Comments A/G Ratio (test code = A/G Ratio) 0.7 1 0.7-1.6 [facility] [id number] 11:31:00 Test Item Value Reference Range Interpretation Comments ALT (test code = ALT) 80 See_Comment [Auto mated message] The system which ge nerated this result transmit tammi reference range : <=65. The reference range was not used to interpr et this result as josé miguel l/abnormal. [facility] [id number] 11:31:00 Test Item Value Reference Range Interpretation Comments AST (test code = AST) 131 See_Comment [Auto mated message] The system which ge nerated this result transmit tammi reference range : <=37. The reference range was not used to interpr et this result as josé miguel l/abnormal. [facility] [id number] 11:31:00 Test Item Value Reference Range Interpretation Comments Alk Phos (test code = Alk Phos) 65 39-136 [facility] [id number] 11:31:00 Test Item Value Reference Range Interpretation Comments Bili Total (test code = Bili Total) 3.1 0.2-1.3 [facility] [id number] 11:31:00 Test Item Value Reference Range Interpretation Comments Procalcitonin Lvl (test 0.21 See_Comment [Au tomated message] code = Procalcitonin Lvl) Th e system which generated this result transmitted ref erence range: <=0.10. The reference range was not used to interpr et this result as normal/abnormal . [facility] [id number] 11:31:00 Test Item Value Reference Range Interpretation Comments B/C Ratio (test code = B/C Ratio) 15 1 6-25 [facility] [id number] 11:31:00 Test Item Value Reference Range Interpretation Comments Total Protein (test code = Total 6.2 6.4-8.4 Protein) [facility] [id number] 11:31:00 Test Item Value Reference Range Interpretation Comments Albumin Lvl (test code = Albumin Lvl) 2.6 3.5-5.0 [facility] [id number] 11:31:00 Test Item Value Reference Range Interpretation Comments Globulin (test code = Globulin) 3.6 2.7-4.2 [facility] [id number] 11:31:00 Test Item Value Reference Range Interpretation Comments A/G Ratio (test code = A/G Ratio) 0.7 1 0.7-1.6 [facility] [id number] 11:31:00 Test Item Value Reference Range Interpretation Comments ALT (test code = ALT) 80 See_Comment [Auto mated message] The system which ge nerated this result transmit tammi reference range : <=65. The reference range was not used to interpr et this result as josé miguel l/abnormal. [facility] [id number] 11:31:00 Test Item Value Reference Range Interpretation Comments AST (test code = AST) 131 See_Comment [Auto mated message] The system which ge nerated this result transmit tammi reference range : <=37. The reference range was not used to interpr et this result as josé miguel l/abnormal. [facility] [id number] 11:31:00 Test Item Value Reference Range Interpretation Comments Alk Phos (test code = Alk Phos) 65 39-136 [facility]2021-01-21 11:31:00 Test Item Value Reference Range Interpretation Comments Bili Total (test code = Bili Total) 3.1 0.2-1.3 [id number] 23:30:00 Test Item Value Reference Range Interpretation Comments PT (test code = PT) 17.2 s 12.0-14.7 [facility]BgiodveTCXQGVBIQR6159-26-43 23:30:00 Test Item Value Reference Range Interpretation Comments INR (test code = INR) 1.44 1 0.85-1.17 [facility]ZffilmvQOJYIBSDLH7237-34-78 23:30:00 Test Item Value Reference Range Interpretation Comments PT (test code = PT) 17.2 s 12.0-14.7 [facility]OlqvsqaUMFANHWGJM0880-53-04 23:30:00 Test Item Value Reference Range Interpretation Comments INR (test code = INR) 1.44 1 0.85-1.17 [facility]XctmtxsXDCPODYYQD6061-69-88 23:30:00 Test Item Value Reference Range Interpretation Comments PT (test code = PT) 17.2 s 12.0-14.7 [facility]PugqtwoOLVMDRONVR0231-11-75 23:30:00 Test Item Value Reference Range Interpretation Comments INR (test code = INR) 1.44 1 0.85-1.17 [facility]BbymbiqSQNECPHDOZ9606-19-38 16:01:00 Test Item Value Reference Range Interpretation Comments PT (test code = PT) 16.8 s 12.0-14.7 [facility]QsubzzlKFAVVBJONH0648-64-86 16:01:00 Test Item Value Reference Range Interpretation Comments INR (test code = INR) 1.39 1 0.85-1.17 [facility]UjdgqppPJIWVNTZGS3852-92-57 16:01:00 Test Item Value Reference Range Interpretation Comments PT (test code = PT) 16.8 s 12.0-14.7 [facility]PfxbumdGHBEDLQXXN8585-99-12 16:01:00 Test Item Value Reference Range Interpretation Comments INR (test code = INR) 1.39 1 0.85-1.17 [facility]MhsztybUKOSPTXOUM3856-71-64 16:01:00 Test Item Value Reference Range Interpretation Comments PT (test code = PT) 16.8 s 12.0-14.7 [place] [id number] 16:01:00 Test Item Value Reference Range Interpretation Comments INR (test code = INR) 1.39 1 0.85-1.17 [facility] [id number] 14:48:00 Test Item Value Reference Range Interpretation Comments ABO/Rh (test code = ABO/Rh) A POS [facility] [id number] 14:48:00 Test Item Value Reference Range Interpretation Comments Antibody Scrn (test Negative (11/19/20 8:48 code = Antibody Scrn) AM) [facility] [id number] 14:48:00 Test Item Value Reference Range Interpretation Comments ABO/Rh (test code = ABO/Rh) A POS [facility] [id number] 14:48:00 Test Item Value Reference Range Interpretation Comments Antibody Scrn (test Negative (11/19/20 8:48 code = Antibody Scrn) AM) [facility] [id number] 14:48:00 Test Item Value Reference Range Interpretation Comments ABO/Rh (test code = ABO/Rh) A POS [facility] [id number] 14:48:00 Test Item Value Reference Range Interpretation Comments Antibody Scrn (test Negative (11/19/20 8:48 code = Antibody Scrn) AM) [facility] [id number] 14:27:00 Test Item Value Reference Range Interpretation Comments RBC product (test code Product available = RBC product) 4(11/19/20 8:27 AM) [facility] [id number] 14:27:00 Test Item Value Reference Range Interpretation Comments RBC product (test code Product available = RBC product) 4(11/19/20 8:27 AM) [facility] [id number] 14:27:00 Test Item Value Reference Range Interpretation Comments RBC product (test code Product available = RBC product) 4(11/19/20 8:27 AM) [facility] [id number] 11:38:00 Test Item Value Reference Range Interpretation Comments Magnesium Lvl (test code = Magnesium 2.2 1.8-2.4 Lvl) [facility] [id number] 11:38:00 Test Item Value Reference Range Interpretation Comments Phosphorus (test code = Phosphorus) 3.3 2.5-4.5 [facility]2021-01-20 11:38:00 Test Item Value Reference Range Interpretation Comments Ca Ion WB (test code = Ca Ion WB) 1.10 1.05-1.25 [facility]2021-01-20 11:38:00 Test Item Value Reference Range Interpretation Comments Ca Norm WB (test code = Ca Norm WB) 1.11 1.05-1.25 [facility]2021-01-20 11:38:00 Test Item Value Reference Range Interpretation Comments Magnesium Lvl (test code = Magnesium 2.2 1.8-2.4 Lvl) [facility]2021-01-20 11:38:00 Test Item Value Reference Range Interpretation Comments Phosphorus (test code = Phosphorus) 3.3 2.5-4.5 [facility]2021-01-20 11:38:00 Test Item Value Reference Range Interpretation Comments Ca Ion WB (test code = Ca Ion WB) 1.10 1.05-1.25 [facility]2021-01-20 11:38:00 Test Item Value Reference Range Interpretation Comments Ca Norm WB (test code = Ca Norm WB) 1.11 1.05-1.25 [facility]2021-01-20 11:38:00 Test Item Value Reference Range Interpretation Comments Magnesium Lvl (test code = Magnesium 2.2 1.8-2.4 Lvl) [facility]2021-01-20 11:38:00 Test Item Value Reference Range Interpretation Comments Phosphorus (test code = Phosphorus) 3.3 2.5-4.5 [facility]2021-01-20 11:38:00 Test Item Value Reference Range Interpretation Comments Ca Ion WB (test code = Ca Ion WB) 1.10 1.05-1.25 [facility]2021-01-20 11:38:00 Test Item Value Reference Range Interpretation Comments Ca Norm WB (test code = Ca Norm WB) 1.11 1.05-1.25 [facility]W[id number] 10:03:00 Test Item Value Reference Range Interpretation Comments PT (test code = PT) 16.6 s 12.0-14.7 [id number] 10:03:00 Test Item Value Reference Range Interpretation Comments INR (test code = INR) 1.37 1 0.85-1.17 [id number] 10:03:00 Test Item Value Reference Range Interpretation Comments PT (test code = PT) 16.6 s 12.0-14.7 [facility] H[id number] 10:03:00 Test Item Value Reference Range Interpretation Comments INR (test code = INR) 1.37 1 0.85-1.17 [facility] HospitalYwleggrHXRYXZMFGB9927-64-39 10:03:00 Test Item Value Reference Range Interpretation Comments PT (test code = PT) 16.6 s 12.0-14.7 [facility] HospitalBrgcbcpYBJGCOQLEW1267-14-96 10:03:00 Test Item Value Reference Range Interpretation Comments INR (test code = INR) 1.37 1 0.85-1.17 [facility] [id number] 04:04:00 Test Item Value Reference Range Interpretation Comments Lactic Acid Lvl (test code = Lactic 1.6 0.5-2.2 Acid Lvl) [facility] [id number] 04:04:00 Test Item Value Reference Range Interpretation Comments Lactic Acid Lvl (test code = Lactic 1.6 0.5-2.2 Acid Lvl) [facility] [id number] 04:04:00 Test Item Value Reference Range Interpretation Comments Lactic Acid Lvl (test code = Lactic 1.6 0.5-2.2 Acid Lvl) [facility] [id number] 09:18:00 Test Item Value Reference Range Interpretation Comments Troponin-I (test code 0.08 See_Comment [Auto mated message] The = Troponin-I) system which g enerated this result transmit tammi reference range : <=0.40. The reference r princess was not used to interpr et this result as josé miguel l/abnormal. [facility] [id number] 09:18:00 Test Item Value Reference Range Interpretation Comments Magnesium Lvl (test code = Magnesium 1.9 1.8-2.4 Lvl) [facility] [id number] 09:18:00 Test Item Value Reference Range Interpretation Comments PSA (test code = PSA) 0.2 [facility] [id number] 09:18:00 Test Item Value Reference Range Interpretation Comments CEA (test code = CEA) 1.1 See_Comment [Auto mated message] The system which ge nerated this result transmit tammi reference range : <=3.0. The reference range was not used to interpr et this result as josé miguel l/abnormal. [facility] [id number] 09:18:00 Test Item Value Reference Range Interpretation Comments Troponin-I (test code 0.08 See_Comment [Auto mated message] The = Troponin-I) system which g enerated this result transmit tammi reference range : <=0.40. The reference r princess was not used to interpr et this result as josé miguel l/abnormal. [facility] [id number] 09:18:00 Test Item Value Reference Range Interpretation Comments Magnesium Lvl (test code = Magnesium 1.9 1.8-2.4 Lvl) [facility] [id number] 09:18:00 Test Item Value Reference Range Interpretation Comments PSA (test code = PSA) 0.2 [facility] [id number] 09:18:00 Test Item Value Reference Range Interpretation Comments CEA (test code = CEA) 1.1 See_Comment [Auto mated message] The system which ge nerated this result transmit tammi reference range : <=3.0. The reference range was not used to interpr et this result as josé miguel l/abnormal. [facility] [employer]annCARDIAC [id number] 09:18:00 Test Item Value Reference Range Interpretation Comments Troponin-I (test code 0.08 See_Comment [Auto mated message] The = Troponin-I) system which g enerated this result transmit tammi reference range : <=0.40. The reference r princess was not used to interpr et this result as josé miguel l/abnormal. [facility] [id number] 09:18:00 Test Item Value Reference Range Interpretation Comments Magnesium Lvl (test code = Magnesium 1.9 1.8-2.4 Lvl) [facility] [place] [id number] 09:18:00 Test Item Value Reference Range Interpretation Comments PSA (test code = PSA) 0.2 [facility] BarberTREBEKAH [id number] 09:18:00 Test Item Value Reference Range Interpretation Comments CEA (test code = CEA) 1.1 See_Comment [Auto mated message] The system which ge nerated this result transmit tammi reference range : <=3.0. The reference range was not used to interpr et this result as josé miguel l/abnormal. [facility] TanSaploAC [id number] 03:01:00 Test Item Value Reference Range Interpretation Comments Troponin-I (test code 0.06 See_Comment [Auto mated message] The = Troponin-I) system which g enerated this result transmit tammi reference range : <=0.40. The reference r princess was not used to interpr et this result as josé miguel l/abnormal. [facility] [id number] 03:01:00 Test Item Value Reference Range Interpretation Comments Procalcitonin Lvl (test no gt See_Comment [Au tomated message] code = Procalcitonin Lvl) Th e system which generated this result transmitted ref erence range: <=0.10. The reference range was not used to interpr et this result as normal/abnormal . [facility] [employer]2021-01-19 03:01:00 Test Item Value Reference Range Interpretation Comments Troponin-I (test code 0.06 See_Comment [Auto mated message] The = Troponin-I) system which g enerated this result transmit tammi reference range : <=0.40. The reference r princess was not used to interpr et this result as josé miguel l/abnormal. [facility] [id number] 03:01:00 Test Item Value Reference Range Interpretation Comments Procalcitonin Lvl (test no gt See_Comment [Au tomated message] code = Procalcitonin Lvl) Th e system which generated this result transmitted ref erence range: <=0.10. The reference range was not used to interpr et this result as normal/abnormal . [facility] TanGrand Perfect[employer]2021-01-19 03:01:00 Test Item Value Reference Range Interpretation Comments Troponin-I (test code 0.06 See_Comment [Auto mated message] The = Troponin-I) system which g enerated this result transmit tammi reference range : <=0.40. The reference r princess was not used to interpr et this result as josé miguel l/abnormal. [facility]2021-01-19 03:01:00 Test Item Value Reference Range Interpretation Comments Procalcitonin Lvl (test no gt See_Comment [Au tomated message] code = Procalcitonin Lvl) Th e system which generated this result transmitted ref erence range: <=0.10. The reference range was not used to interpr et this result as normal/abnormal . [id number] 01:18:00 Test Item Value Reference Range Interpretation Comments D-Dimer (test code = D-Dimer) [facility].92 [id number] 01:18:00 Test Item Value Reference Range Interpretation Comments Coronavirus (COVID-19) Not Detected (11/17/20 NATHALY (test code = 7:18 PM) Coronavirus (COVID-19) NATHALY) [id number] 01:18:00 Test Item Value Reference Range Interpretation Comments D-Dimer (test code = D-Dimer) 3.92 [facility] [id number] 01:18:00 Test Item Value Reference Range Interpretation Comments Coronavirus (COVID-19) Not Detected (11/17/20 NATHALY (test code = 7:18 PM) Coronavirus (COVID-19) NATHALY) [facility]GlojwgnYYCNURRQSE5179-61-23 01:18:00 Test Item Value Reference Range Interpretation Comments D-Dimer (test code = D-Dimer) 3.92 [facility] TylerEpsrjieBCWCSNFVLE1515-43-89 01:18:00 Test Item Value Reference Range Interpretation Comments Coronavirus (COVID-19) Not Detected (11/17/20 NATHALY (test code = 7:18 PM) Coronavirus (COVID-19) NATHALY) [facility] [id number] 22:50:00 Test Item Value Reference Range Interpretation Comments Troponin-I (test code 0.07 See_Comment [Auto mated message] The = Troponin-I) system which g enerated this result transmit tammi reference range : <=0.40. The reference r princess was not used to interpr et this result as josé miguel l/abnormal. [facility] HospitalSharethroughOYFEKAF8705-71-90 22:50:00 Test Item Value Reference Range Interpretation Comments BNP (test code = BNP) 1010 [facility] [id number] 22:50:00 Test Item Value Reference Range Interpretation Comments Lipase Lvl (test code = Lipase Lvl) [address]2021-01-18 22:50:00 Test Item Value Reference Range Interpretation Comments Troponin-I (test code 0.07 See_Comment [Auto mated message] The = Troponin-I) system which g enerated this result transmit tammi reference range : <=0.40. The reference r princess was not used to interpr et this result as josé miguel l/abnormal. [facility] [id number] 22:50:00 Test Item Value Reference Range Interpretation Comments BNP (test code = BNP) 1009 [facility]2021-01-18 22:50:00 Test Item Value Reference Range Interpretation Comments Lipase Lvl (test code = Lipase Lvl) [address] [place], [place] [address]21-01-18 22:50:00 Test Item Value Reference Range Interpretation Comments Troponin-I (test code 0.07 See_Comment [Auto mated message] The = Troponin-I) system which g enerated this result transmit tammi reference range : <=0.40. The reference r princess was not used to interpr et this result as josé miguel l/abnormal. [facility] [id number] 22:50:00 Test Item Value Reference Range Interpretation Comments BNP (test code = BNP) 0 [facility]2021-01-18 22:50:00 Test Item Value Reference Range Interpretation Comments Lipase Lvl (test code = Lipase Lvl) [facility] [address]
[2022-10-21 16:35] LABS: Absolute Lymphocytes (CBC) 1.2 K/uL (0.7-4.9); Hematocrit 42.3 % (39.6-49.0); Lymphocytes % 22.6 % (15.3-44.8); MCV 95.3 fL (80-100); MPV 9.9 fL (7.6-11.3); RBC Red Blood Cell Count 4.44 M/uL (4.33-5.43)
[2022-10-21 16:48] LABS: Protime INR 3.19
[2022-10-21 16:54] LABS: Potassium 4.4 mmol/L (3.5-5.1); Troponin High Sensitivity 55.6 pg/mL (<58.9)
[2022-10-21 17:17] LABS: SARS-COV-2 RT PCR NEGATIVE (NEGATIVE)
--- NOTE | 2022-10-21 17:20 | RAD REPORT ---
EXAM DESCRIPTION: RAD - Chest Single View - 10/21/2022 5:08 pm CLINICAL HISTORY: SOB COMPARISON: Chest Single View dated 10/13/2022; Chest Pa And Lat (2 Views) dated 03/20/2021; Chest Si ngle View dated 03/02/2018; Abdomen Pelvis Wo Contrast dated 10/17/2022 FINDINGS: Lines: Pacemaker/ICD. Lungs: Small right effusion with likely some associated atelectasis. Pleural: Small right effusion. Cardiac: Severe cardiomegaly. Mediastinum: Within normal limits. Bones: No acute fractures. Other: None IMPRESSION: Small right pleural effusion underlying atelectasis. Severe cardiomegaly. No definite ra diographic evidence of edema.
[2022-10-21] MEDS ORDERED: NA CHLORIDE 0.9% 250 ML ONE (17:39)
--- NOTE | 2022-10-21 19:44 | EDPHYS ---
Physician Documentation [facility] Name: Manjeet Zhu Age: 77 yrs Sex: Male : 1945 Arrival Date: 10/21/2022 Time: 15:43 Bed 16 Private MD: ED Physician Rojelio Powell HPI: 10/21 16:05 This 77 yrs old Male presents to ER via Ambulatory with complaints of CHF. cp 16:05 The patient has shortness of breath with light activity. cp 16:05 Onset: The symptoms/episode began/occurred gradually. Duration: The symptoms are cp continuous, and are steadily getting worse. Associated signs and symptoms: Pertinent negatives: chest pain, productive cough, diaphoresis, dizziness, fever, vomiting. Severity of symptoms: in the emergency department the symptoms are unchanged despite home interventions. patient accompanied to ED by son who reports patient was recently discharged from this hospital after admission for CHF and since discharge shortness of breath has worsened. Patient has been taking prescribed diuretic w/o improvement. Historical: - Allergies: 15:55 No Known Allergies; hb - PMHx: 15:55 CVA; High Cholesterol; Hypertension; Myocardial infarction; hb - Immunization history:: Adult Immunizations unknown. - Social history:: Smoking status: Patient denies any tobacco usage or history of. ROS: 16:10 Constitutional: Negative for body aches, chills, fever, poor PO intake. cp 16:10 Cardiovascular: Positive for edema, Negative for chest pain, palpitations. cp 16:10 Respiratory: Positive for shortness of breath, on exertion. Negative for cough, wheezing. 16:10 Abdomen/GI: Negative for abdominal pain, vomiting, diarrhea, constipation. 16:10 Eyes: Negative for injury, pain, redness, and discharge. cp 16:10 ENT: Negative for drainage from ear(s), ear pain, sore throat, difficulty swallowing, cp difficulty handling secretions. 16:10 : Negative for urinary symptoms, flank pain, testicular pain 16:10 Skin: Positive for ecchymosis, of the lower abdomen. 16:10 Neuro: Negative for altered mental status, dizziness, headache, syncope, weakness. 16:10 All other systems are negative. Exam: 16:15 Constitutional: The patient appears in no acute distress, alert, awake, comfortable, cp non-diaphoretic, non-toxic, well developed, well nourished. 16:15 Head/Face: Normocephalic, atraumatic. cp 16:15 Eyes: Periorbital structures: appear normal, Conjunctiva: normal, no exudate, no injection, Sclera: no appreciated abnormality, Lids and lashes: appear normal, bilaterally. 16:15 ENT: External ear(s): are unremarkable, Nose: is normal, Mouth: Lips: moist, Oral mucosa: moist, Posterior pharynx: Airway: no evidence of obstruction, patent. 16:15 Neck: ROM/movement: is normal, is supple, without pain, no range of motions limitations. 16:15 Chest/axilla: Inspection: normal, Palpation: is normal, no crepitus, no tenderness. 16:15 Cardiovascular: Rate: normal, Rhythm: regular, Edema: pedal edema, that is marked, ankle edema, that is marked, JVD: is not appreciated. 16:15 Respiratory: the patient does not display signs of respiratory distress, Respirations: normal, no use of accessory muscles, no retractions, no splinting, labored breathing, is not present, Breath sounds: are clear throughout, no decreased breath sounds, no stridor, no wheezing. 16:15 Abdomen/GI: Inspection: distension, that is moderate, Bowel sounds: active, all quadrants, Palpation: abdomen is soft and non-tender, in all quadrants. 16:40 ECG was reviewed by the Attending Physician. cp Vital Signs: 15:54 BP 88 / 73; Pulse 55; Resp 20; Temp 98; Pulse Ox 100% on R/A; Weight 90.72 kg; Height 5 hb ft. 10 in. (177.80 cm); Pain 2/10; 15:55 BP 93 / 70; Pulse 76; Resp 18; Pulse Ox 99% on R/A; db 16:30 BP 86 / 68; Pulse 76; Resp 18; Pulse Ox 100% on R/A; db 17:00 BP 85 / 72; Pulse 66; Resp 18; Pulse Ox 99% ; db 17:23 BP 98 / 66; Pulse 71; Resp 16; Pulse Ox 100% on R/A; db 17:30 BP 86 / 71; Pulse 70; Resp 18; Pulse Ox 100% on R/A; db 18:31 BP 88 / 69; Pulse 72; Resp 16; Pulse Ox 100% on R/A; db 19:18 BP 83 / 66; Pulse 73; Resp 17 S; Temp 97.6(O); Pulse Ox 96% on R/A; as6 19:57 BP 83 / 61; Pulse 74; Resp 18 S; Pulse Ox 100% on R/A; as6 20:30 BP 85 / 62; Pulse 73; Resp 16 S; Pulse Ox 99% on R/A; as6 21:25 BP 92 / 74; Pulse 65; Resp 13 S; Pulse Ox 100% on R/A; as6 15:54 Body Mass Index 28.70 (90.72 kg, 177.80 cm) hb Procedures: 10/22 05:06 Central Line: the site was prepped with Betadine, in sterile fashion, a triple lumen cp catheter was inserted, in the right femoral vein, in 1 attempts. placement was verified, by blood return, the site was dressed with Tegaderm. MDM: 10/21 15:47 Patient medically screened. 17:35 Data reviewed: vital signs, nurses notes, lab test result(s), EKG, radiologic studies, cp plain films. 18:00 Data interpreted: monitoring specialist: rate is 70 beats/min, rhythm is normal sinus rhythm, cp Pulse oximetry: on room air is 100 %. Interpretation: normal. Plan: O2 by NC applied. Test interpretation: by ED physician or midlevel provider: ECG, plain radiologic studies. 18:00 Antibiotic administration: Not indicated, the patient does not have an appreciated cp infiltrate. 18:15 Physician consultation: Ish PRYOR was contacted at 18:10, would like cp consultation with Dr. Hair to discuss consideration for transfer. 18:25 Physician consultation: Mauricio Hair MD was contacted at 18:25, regarding consult, cp patient's condition, after a discussion of the case, a recommendation for transfer for higher level of care is made, for higher level of care. 10/21 15:58 Order name: Basic Metabolic Panel; Complete Time: 17:16 10/21 17:16 Interpretation: Normal except: NA 135; BUN 57; CRE 2.59; GFR 25. cp 10/21 15:58 Order name: CBC with Diff; Complete Time: 17:16 10/21 17:17 Interpretation: Normal except: PLT 124; RDW 18.0. 10/21 15:58 Order name: Magnesium; Complete Time: 17:16 cp 10/21 15:58 Order name: NT PRO-BNP; Complete Time: 17:16 cp 10/21 17:17 Interpretation: Abnormal: NT PRO-BNP 95047. 10/21 15:58 Order name: PT-INR; Complete Time: 17:16 10/21 15:58 Order name: Troponin HS; Complete Time: 17:16 10/21 15:58 Order name: XRAY Chest (1 view); Complete Time: 17:28 10/21 17:28 Interpretation: Report review. 10/21 16:03 Order name: COVID-19/FLU A+B; Complete Time: 17:18 10/21 17:18 Interpretation: Reviewed. 10/21 20:33 Order name: Lactate w/ 2H reflex if indic. 10/21 20:33 Order name: Procalcitonin 10/21 20:33 Order name: Blood Culture Adult (2) 10/21 15:58 Order name: EKG; Complete Time: 15:59 10/21 15:58 Order name: Cardiac monitoring; Complete Time: 16:48 10/21 15:58 Order name: EKG - Nurse/Tech; Complete Time: 16:48 10/21 15:58 Order name: IV Saline Lock; Complete Time: 16:57 10/21 15:58 Order name: Labs collected and sent; Complete Time: 16:57 10/21 15:58 Order name: O2 Per Protocol; Complete Time: 16:57 10/21 15:58 Order name: O2 Sat Monitoring; Complete Time: 16:57 cp EC:40 Rate is 64 beats/min. Rhythm is regular with Ventricular paced. QRS interval is cp prolonged at 132 msec. QT interval is normal. T waves are Inverted in leads I, aVL, V4, V5, V6. Interpreted by me. Reviewed by me. Administered Medications: 17:40 Drug: NS 0.9% 250 ml Route: IV; Rate: bolus; Site: left antecubital; db 19:09 Follow up: Response: No adverse reaction; IV Status: Completed infusion; IV Intake: db 250ml 19:57 Drug: Levophed (norepinephrine) 0.1 mcg/kg/min Route: IV; Rate: calculated rate; Site: as6 right femoral; 21:31 Follow up: Response: No adverse reaction; IV Status: Infusion continued upon transfer; as6 IV Intake: 40ml Disposition: 23:00 Critical Care:. cp 10/22 21:33 Co-signature as Attending Physician, Rojelio Powell MD I agree with the assessment and rt plan of care. Disposition Summary: 10/21/22 19:43 Transfer Ordered Transfer Location: [facility] cp Reason: Higher level of care cp Condition: Stable cp Problem: an ongoing problem cp Symptoms: have improved cp Accepting Physician: DR Lerma(10/21/22 21:50) as6 Diagnosis - Cardiogenic shock cp - Unspecified combined systolic (congestive) and diastolic (congestive) heart failure cp - Dyspnea cp Forms: - Medication Reconciliation Form cp - SBAR form cp Critical care time excluding procedures: 10/21 23:00 Critical care time: Bedside Care: 7 minutes, Consultation: 25 minutes, Family cp Intervention: 10 minutes. Total time: 42 minutes Signatures: Dispatcher [employer] EDMorales Salmon PA PA cp Libra Santiago, RN RN Blake Emerson RN RN as6 Rahel Godoy RN RN db [place], Ryan, MD MD rt Corrections: (The following items were deleted from the chart) 21: 19:43 Doctor cp cp 21:50 21:02 DR Lerma cp as6
--- NOTE | 2022-10-21 19:44 | ER ---
Nurse's Notes [facility] Name: Manjeet Zhu Age: 77 yrs Sex: Male : 1945 Arrival Date: 10/21/2022 Time: 15:43 Bed 16 Private MD: Diagnosis: Cardiogenic shock;Unspecified combined systolic (congestive) and diastolic (congestive) heart failure;Dyspnea Presentation: 10/21 15:54 Chief complaint: Recently inpatient for CHF exacerbation, son reports generalized hb weakness, intermittent confusion, and abdominal swelling for the last few days. Coronavirus screen: At this time, the client does not indicate any symptoms associated with coronavirus-19. Ebola Screen: No symptoms or risks identified at this time. Risk Assessment: Do you want to hurt yourself or someone else? Patient reports no desire to harm self or others. Onset of symptoms was October 18, 2022. 15:54 Method Of Arrival: Ambulatory hb 15:54 Acuity: KAVITA 2 hb 21:26 Initial Sepsis Screen: Does the patient meet any 2 criteria? No. Patient's initial as6 sepsis screen is negative. Does the patient have a suspected source of infection? No. Patient's initial sepsis screen is negative. Historical: - Allergies: 15:55 No Known Allergies; hb - PMHx: 15:55 CVA; High Cholesterol; Hypertension; Myocardial infarction; hb - Immunization history:: Adult Immunizations unknown. - Social history:: Smoking status: Patient denies any tobacco usage or history of. Screenin:31 [facility] ED Fall Risk Assessment (Adult) History of falling in the last 3 months, db including since admission No falls in past 3 months (0 pts) Confusion or Disorientation No (0 pts) Intoxicated or Sedated No (0 pts) Impaired Gait No (0 pts) Mobility Assist Device Used No (0 pt) Altered Elimination No (0 pt) Score/Fall Risk Level 0 - 2 = Low Risk. Abuse screen: Denies threats or abuse. Denies injuries from another. Nutritional screening: No deficits noted. Tuberculosis screening: No symptoms or risk factors identified. Assessment: 15:55 Reassessment: Patient appears in no apparent distress at this time. Patient is alert, db oriented x 3, equal unlabored respirations, skin warm/dry/pink. CHF exacerbation, bilateral leg swelling, and abdominal swelling per son that is more than usually. recently released from hospital. General: Appears in no apparent distress. comfortable, Behavior is calm, cooperative, appropriate for age, quiet. Pain: Denies pain. Neuro: No deficits noted. Level of Consciousness is awake, alert, obeys commands, Oriented to person, place, time, situation, Appropriate for age. Cardiovascular: No deficits noted. Respiratory: Airway is patent Respiratory effort is even, unlabored, Respiratory pattern is regular, symmetrical. 16:30 Reassessment: Patient appears in no apparent distress at this time. Patient and/or db family updated on plan of care and expected duration. Pain level reassessed. Patient is alert, oriented x 3, equal unlabored respirations, skin warm/dry/pink. 17:44 Reassessment: Patient appears in no apparent distress at this time. Patient and/or db family updated on plan of care and expected duration. Pain level reassessed. Patient is alert, oriented x 3, equal unlabored respirations, skin warm/dry/pink. patient is sleeping. denies having any complaints. 18:30 Reassessment: Patient appears in no apparent distress at this time. No changes from db previously documented assessment. Patient and/or family updated on plan of care and expected duration. Pain level reassessed. Patient is alert, oriented x 3, equal unlabored respirations, skin warm/dry/pink. 19:18 General: Appears in no apparent distress. Behavior is calm, cooperative. General: as6 Reports fatigue for. Vital Signs: 15:54 BP 88 / 73; Pulse 55; Resp 20; Temp 98; Pulse Ox 100% on R/A; Weight 90.72 kg; Height 5 hb ft. 10 in. (177.80 cm); Pain 2/10; 15:55 BP 93 / 70; Pulse 76; Resp 18; Pulse Ox 99% on R/A; db 16:30 BP 86 / 68; Pulse 76; Resp 18; Pulse Ox 100% on R/A; db 17:00 BP 85 / 72; Pulse 66; Resp 18; Pulse Ox 99% ; db 17:23 BP 98 / 66; Pulse 71; Resp 16; Pulse Ox 100% on R/A; db 17:30 BP 86 / 71; Pulse 70; Resp 18; Pulse Ox 100% on R/A; db 18:31 BP 88 / 69; Pulse 72; Resp 16; Pulse Ox 100% on R/A; db 19:18 BP 83 / 66; Pulse 73; Resp 17 S; Temp 97.6(O); Pulse Ox 96% on R/A; as6 19:57 BP 83 / 61; Pulse 74; Resp 18 S; Pulse Ox 100% on R/A; as6 20:30 BP 85 / 62; Pulse 73; Resp 16 S; Pulse Ox 99% on R/A; as6 21:25 BP 92 / 74; Pulse 65; Resp 13 S; Pulse Ox 100% on R/A; as6 15:54 Body Mass Index 28.70 (90.72 kg, 177.80 cm) hb ED Course: 15:43 Patient arrived in ED. mr 15:44 Morales Burr PA is PHCP. cp 15:44 Rojelio Powell MD is Attending Physician. cp 15:55 Triage completed. hb 16:02 Rahel Godoy, RN is Primary Nurse. db 16:20 Inserted saline lock: 20 gauge in left antecubital area, using aseptic technique. Blood db collected. 16:50 EKG done, by ED staff, reviewed by Morales HOGUE. zm 17:10 XRAY Chest (1 view) In Process Unspecified. EDMS 17:31 Patient has correct armband on for positive identification. Bed in low position. Call db light in reach. Side rails up X2. Client placed on continuous cardiac and pulse oximetry monitoring. NIBP monitoring applied. Lights dimmed. Warm blanket given. 19:12 Primary Nurse role handed off by Rahel Godoy, RN mw2 19:18 Blake Emerson, BRO is Primary Nurse. as6 19:38 Assisted provider with central line placement. Set up central line tray. Triple lumen as6 line placed in right femoral. Line placed by Morales HOGUE Placement verified by blood return, Dressed with Tegaderm, Patient tolerated well. 19:51 Initiated a transfer with Krysten Oquendo from [facility]. rv1 20:27 Connected LENNIE Barfield to the from [place]. rv1 20:35 Administrative approval given by Krysten Oquendo/ patient has been accepted to [address] CCU 2 Bed 11/ Dr. Lerma accepted the patient in transfer/ report to be called to [phone]. 21:26 Arm band placed on. as6 21:30 Patient transferred, IV remains in place. as6 Administered Medications: 17:40 Drug: NS 0.9% 250 ml Route: IV; Rate: bolus; Site: left antecubital; db 19:09 Follow up: Response: No adverse reaction; IV Status: Completed infusion; IV Intake: db 250ml 19:57 Drug: Levophed (norepinephrine) 0.1 mcg/kg/min Route: IV; Rate: calculated rate; Site: as6 right femoral; 21:31 Follow up: Response: No adverse reaction; IV Status: Infusion continued upon transfer; as6 IV Intake: 40ml Medication: 21:26 VIS not applicable for this client. as6 Intake: 19:09 IV: 250ml; Total: 250ml. db 21:31 IV: 40ml; Total: 290ml. as6 Outcome: 19:43 ER care complete, transfer ordered by . mayte 21:30 Transferred by ground EMS to [facility], Transfer form completed. as6 X-rays sent w/ patient. 21:30 Condition: stable 21:30 Instructed on the need for transfer. 21:50 Patient left the ED. as6 Signatures: Dispatcher [employer] YO WillisAnnie hurt Corey, PA PA cp Baxter, Heather, BRO CRABTREE Romeo Toney 2 Blake Emerson RN RN as6 Tess Hamm Danielle, RN RN db Villegas, Rebecca rv1
[2022-10-21] MEDS ORDERED: NOREPINEPHRINE BITARTRATE/D5W 4 MG/250 ML BAG IV ONE (19:52)
[2022-10-21 22:31] VITALS: TEMP 97.6
[2022-10-21 22:34] VITALS: BP 92/74; O2SAT 100
--- NOTE | 2022-10-23 17:26 | EKG ---
Test Date: 2022-10-21 Test Time: 16:37:29 Press Reader: JERONIMO MEASUREMENT RESULTS: Intervals: Rate: 64 NM: QRSD: 132 QT: 466 QTc: 480 [place]: P: NM: QRS: -24 T: 122 INTERPRETIVE STATEMENTS: Ventricular-paced rhythm with frequent AV dual-paced complexes Abnormal ECG Compared to ECG 10/13/2022 15:57:21 Ventricular premature complex(es) no longer present Atrial-sensed ventricular-paced complex(es) or rhythm no longer present Electronically Signed On 10-23-22 17:24:50 SENIOR POLICY ASSOCIATE by Mauricio Hair
== END 2022-10-21 21:50 | disposition short-term general hospital (02) ==
LOC: ER 15:40
DX: R57.0 Cardiogenic shock (principal); I50.40 Unspecified combined systolic (congestive) and diastolic (congestive) heart failure; I10 Essential (primary) hypertension; Z86.73 Personal history of transient ischemic attack (TIA), and cerebral infarction without residual deficits; Z20.822 Contact with and (suspected) exposure to COVID-19
CPT/HCPCS: 93005; 87040 ×2; 85025; 80048; 36415; 83735; 85610; 83605; 84484; 84145; 83880; 0240U; 71045; 99285; J7050